=== PATIENT | female | born 1960 | race Caucasian/White ===

== ENCOUNTER → 2020-09-24 13:25 | Outpatient (BNVA) | payer MEDICARE, SELFPAY | PROVIDERS: PCP Family Medicine; Referring Provider Family Medicine; Visit Provider Nurse Practitioner Family | DX: Z01.818 Encounter for other preprocedural examination (principal); R19.7 Diarrhea, unspecified; K59.00 Constipation, unspecified; Z88.4 Allergy status to anesthetic agent; Z79.899 Other long term (current) drug therapy | CPT/HCPCS: 99202; Q3014 ==

== ENCOUNTER 2020-10-22 15:24 | Outpatient (REF) | payer MEDICARE, OTHER, SELFPAY ==
[2020-10-22 16:04] LABS: Hematocrit 41.6 % (37-47); Hemoglobin 13.4 g/dl (12.0-16.0); Mean Corpuscular HGB Conc 32.2 g/dl (31.0-35.0); Mean Corpuscular Hemoglobin 28.9 pg (27.0-33.0); Mean Corpuscular Volume 89.7 fL (80-98); Mean Platelet Volume 10.9 fL (9.4-12.3); Platelet Count 312 X10*3/uL (160-400); Red Blood Count 4.64 X10*6/uL (4.20-5.50); Red Cell Distribution Width 13.6 % (11.0-16.0); White Blood Count 7.7 X10*3/uL (4.8-10.8)
[2020-10-22 16:26] LABS: Alanine Aminotransferase 12 U/L (0-31); Alkaline Phosphatase 96 U/L (39-117); Anion Gap 11 (12-20); Aspartate Amino Transferase 21 U/L (5-31); Bilirubin Total 0.3 mg/dL (0.0-1.0); Blood Urea Nitrogen 6 mg/dL (9-16); Carbon Dioxide 30 mmol/L (22-29); Chloride 100 mmol/L (96-108); Estimated Glomerular Filt Rate > 60; Glucose Random 82 mg/dL (60-115); Potassium 4.2 mmol/l (3.3-5.1); Sodium 137 mmol/L (135-145); Total Protein 7.8 g/dL (6.5-8.0)
== END 2020-10-22 15:25 | disposition home or self-care (01) ==
LOC: HO.LAB 15:24
PROVIDERS: PCP Family Medicine; Visit Provider Nurse Practitioner Family
DX: Z12.11 Encounter for screening for malignant neoplasm of colon (principal); R19.7 Diarrhea, unspecified
CPT/HCPCS: 36415; 80053; 85027

== ENCOUNTER 2020-12-11 07:26 | Day surgery (SDC) | payer MEDICARE, SELFPAY ==
--- NOTE | 2020-12-10 08:26 | P.CONAN_ITS ---
Documented by User: Christine Wilson 12/10/20 08:29 HPI - Anesthesia Eval Consult details Narrative: 60yo F for Colonoscopy Chronic opioids. 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, right foot Peripheral neuropathy Family History Family History Father History of hemochromatosis Mother History of high blood pressure Surgical History Surgical History History of colonoscopy Social History Social History Alcohol intake: never Smoking Status: Current every day smoker Tobacco Type: Cigarette Cigarettes Per Day: 3 Second Hand Smoke Exposure: No Use of substances other than those prescribed or required for medical reasons: No Advance Directives: No Advance Directives Information Provided: No Advance Directives on File: No Meds Allergies Allergy/AdvReac Type Severity Reaction Status Date / Time lidocaine Allergy Intermediate facial Verified 12/05/20 12:52 swelling procaine Allergy Intermediate Facial Verified 12/05/20 12:52 Swelling Home Medications Medication Instructions Recorded Confirmed Type alprazolam 2 mg tablet 2 mg PO BID 09/24/20 12/05/20 History dextroamphetamine-amphetamine ER 30 mg PO DAILY 09/24/20 12/05/20 History 30 mg 24hr capsule,extend release gabapentin 400 mg capsule 800 mg PO TID cap 09/24/20 12/05/20 History morphine 30 mg immediate release 30 mg PO BID PRN 09/24/20 12/05/20 History tablet Exam Exam Date and Time: December 10, 2020 0826 Height,Weight and Vital Signs: Height 5 ft 2 in Assessment and Plan Assessment Anesthesia Assessment: Chart Reviewed Documented by User: Perez Travis 12/11/20 08:36 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, right foot Peripheral neuropathy Family History Family History Father History of hemochromatosis Mother History of high blood pressure Surgical History Surgical History History of colonoscopy Social History Social History Alcohol intake: never Smoking Status: Current every day smoker Tobacco Type: Cigarette Cigarettes Per Day: 3 Second Hand Smoke Exposure: No Use of substances other than those prescribed or required for medical reasons: No Advance Directives: No Advance Directives Information Provided: No Advance Directives on File: No Meds Allergies Allergy/AdvReac Type Severity Reaction Status Date / Time lidocaine Allergy Intermediate facial Verified 12/05/20 12:52 swelling procaine Allergy Intermediate Facial Verified 12/05/20 12:52 Swelling Home Medications Medication Instructions Recorded Confirmed Type alprazolam 2 mg tablet 2 mg PO BID 09/24/20 12/05/20 History dextroamphetamine-amphetamine ER 30 mg PO DAILY 09/24/20 12/05/20 History 30 mg 24hr capsule,extend release gabapentin 400 mg capsule 800 mg PO TID cap 09/24/20 12/05/20 History morphine 30 mg immediate release 30 mg PO BID PRN 09/24/20 12/05/20 History tablet Exam Airway Mallampati Class: II TM Dist: >3cm Neck ROM: Full Loose/Missing/Broken Teeth: No Heart: [id number] Lungs: cta b/l Assessment and Plan Assessment Anesthesia Assessment: Anesthesia Plan Discussed, PAT Visit and Chart Reviewed Final Anesthetic Review NPO: Yes ASA Class: II Final Preanesthetic Review: No Changes in Pt Med Stat, Meds/Allgs Chart Reviewed, Consent Obtained/Reviewed and Anes Risks/Benef Reviewed Patient Risk: Low Procedure Risk: Low Assessment/Block/Sedation in SS: Assess/Block/Sedation-SS Anesthetic Plan Anesthetic Plan: MAC: and Agree w/ Assess. and Plan Disposition: Standard PACU
[2020-12-11 07:59] VITALS: BMI 30.2
[2020-12-11 08:01] VITALS: BP 126/75; PULSE 76; RESP 16; TEMP 36; O2SAT 96
[2020-12-11] MEDS: Lactated Ringers 1,000 ML 100 ML IVCONT (08:10)
--- NOTE | 2020-12-11 08:13 | PC.NURSE ---
Chest clear, denies shortness of breath, SaO2 96% on room air
--- NOTE | 2020-12-11 08:42 | MHC.SHP ---
Pre-Procedural Eval Section B Chief Complaint: Screening Details of Present Illness: Colon cancer screening, hx of polyps Relevant Family History (Specify if Yes): No Relevant Social History: Tobacco Use Present Medications: see Short Stay Collaborative assessment Medical History: Significant History (IBS bowel movement pattern, Chronic right foot pain, ADHD) History of Previous Operations: Relevant previous surgery/procedure and date(s) (colon with polyps.) Allergies: Allergies Allergy/AdvReac Type Severity Reaction Status Date / Time lidocaine Allergy Intermediate facial Verified 12/05/20 12:52 swelling procaine Allergy Intermediate Facial Verified 12/05/20 12:52 Swelling Review of Systems Sugical H&P ROS: Negative: Cardiovascular, Respiratory and Gastrointestinal and Yes, Specify: Constitution (fatigue, nausea from prep) and Psychiatric (anxiety) Exam Surgical H&P Exam: Normal: HEENT, Normal: Heart, Normal: Lungs, Normal: Extremities and Normal: Abdomen Plan Diagnosis/Plan: Unchanged I have reviewed the history and physical and performed a pertinent physical examination on my patient. No changes have occurred unless specified.yes
[2020-12-11 09:51] VITALS: BP 120/71; PULSE 74; RESP 18; TEMP 36.1; O2SAT 97
--- NOTE | 2020-12-11 09:54 | PM.PROC ---
Brief Operative Note Date of procedure: 12/11/20 Pre-op diagnosis: COLON CANCER SCREENING-HX POLYPS Post-op diagnosis: other (ASCENDING COLON POLYP) Procedure: COLONOSCOPY WITH EXCISIONAL POLYPECTOMY (CBF)--EPI INJECTION-2CC, ENDO LARS-2CC Anesthesia: MAC (NALDO RAPP) Surgeon: Jeni Perdomo Estimated blood loss (mL): 5 Pathology: other (ASCENDING COLON POLYP ?SERRATED.) Condition: stable Disposition: PACU
[2020-12-11 10:10] VITALS: BP 129/72; PULSE 73; RESP 16; TEMP 36.2; O2SAT 96
--- NOTE | 2020-12-11 10:37 | HO.POSTANES ---
Post Anesthesia Evaluation Post Anesthesia Evaluation Vital Signs: Vital Signs Temp Pulse Resp BP Pulse Ox 12/11/20 10:10 97.2 F 73 16 129/72 96 12/11/20 09:51 96.9 F 74 18 120/71 97 12/11/20 08:01 96.8 F 76 16 126/75 96 Anesthesia: Monitored Mental Status: Awake Pain Control: Satisfactory Nausea/Vomiting: None Hydration: Adequate Anesthesia-Related Issues: No Anes. Related Issues
--- NOTE | 2020-12-11 13:14 | OP_ITS ---
SURGEON: Jeni Perdomo MD PREOPERATIVE DIAGNOSIS: Colon cancer screening. POSTOPERATIVE DIAGNOSIS: Colonic polyp. (Serrated on Pathology) PROCEDURE PERFORMED: Colonoscopy with complex polypectomy, excisional cold biopsy forceps after epinephrine injection 2 mL submucosally with good blanching and endo nely tattooing of the area of the polypectomy site. ESTIMATED BLOOD LOSS: Minimal blood loss. Less than 5 mL. COMPLICATIONS: No complications. ANESTHESIA: Monitored. ANESTHESIOLOGIST: Jerrica Bird CRNA. ASSISTANTS: No medical support assistant. SPECIMENS: Specimen removed, ascending colon polyp. The patient is seen for colon cancer screening. SOLAR RESOURCE ASSESSOR: Dr. Perdomo. FINDINGS: Digital rectal exam revealed no specific lesion. Video colonoscope was introduced without difficulty. It was navigated into rectosigmoid and sigmoid on up through descending, transverse, ascending colon into the cecum. Appendiceal orifice was seen. Ileocecal valve was seen. Prep was generally fair to poor, however, with flushing of at least 800 mL of sterile water, I ended up visualizing a superficial polyp in the ascending colon, which had some serrated qualities to it. The area of the polyp was blanched with epinephrine injection 2 mL. NBI imaging showed scalding to the edges of the polyp. Due to positioning, the decision was made to excisionally remove the tissue with cold biopsy forceps. The polyp itself was too superficial to remove with snare cautery. Endo marking was done both proximally and distally to the polypectomy site. CONDITION: Postprocedure, stable. PLAN AND CURRENT RECOMMENDATIONS: Repeat asymptomatic screening in this patient will be 3 years or sooner depending on histology on the polyp. GRAFT OR IMPLANTS: No grafts or implants. Jeni Perdomo MD MEN/MODL / [id number]
== END 2020-12-11 10:50 | disposition home or self-care (01) ==
PROVIDERS: PCP Family Medicine; Visit Provider Internal Medicine Gastroenterology
PROC: 0DJD8ZZ Inspection of Lower Intestinal Tract, Via Natural or Artificial Opening Endoscopic (ICD-10-PCS; CPT 45378; principal; 2020-12-11 08:30)
DX: Z12.11 Encounter for screening for malignant neoplasm of colon (principal); D12.2 Benign neoplasm of ascending colon; F11.20 Opioid dependence, uncomplicated; F90.9 Attention-deficit hyperactivity disorder, unspecified type; F41.9 Anxiety disorder, unspecified; K59.00 Constipation, unspecified; G62.9 Polyneuropathy, unspecified; M87.17 Osteonecrosis due to drugs, ankle, foot and toes; Z79.899 Other long term (current) drug therapy; Z88.8 Allergy status to other drugs, medicaments and biological substances
CPT/HCPCS: 45380; 45381; 88305; J0171; J1610

== ENCOUNTER → 2020-12-18 14:55 | Outpatient (BNVA) | payer MEDICARE, SELFPAY | PROVIDERS: PCP Family Medicine; Visit Provider Nurse Practitioner Family | DX: K59.00 Constipation, unspecified (principal); Z98.890 Other specified postprocedural states | CPT/HCPCS: 99212 ==

== ENCOUNTER → 2021-01-16 14:01 | Outpatient (BNVA) | payer MEDICARE, SELFPAY | PROVIDERS: PCP Family Medicine; Visit Provider Nurse Practitioner Family | DX: Z76.89 Persons encountering health services in other specified circumstances (principal) | CPT/HCPCS: Q3014 ==

== ENCOUNTER → 2021-02-18 14:00 | Outpatient (BNVA) | payer MEDICARE, SELFPAY | PROVIDERS: PCP Nurse Practitioner Family; Visit Provider Nurse Practitioner Family | DX: K59.04 Chronic idiopathic constipation (principal); R06.02 Shortness of breath; R79.81 Abnormal blood-gas level; R06.2 Wheezing | CPT/HCPCS: 99212 ==

== ENCOUNTER 2021-02-18 14:53 | Emergency (ER) | payer MEDICARE, SELFPAY ==
--- NOTE | ~2021-02-18 | XR_ITS ---
EXAMINATION: XR CHEST CLINICAL INFORMATION: SOB. ? Covid. COMPARISON: None TECHNIQUE: Frontal view of the chest was obtained. FINDINGS: The lungs are expanded with patchy ill-defined opacities scattered throughout both lungs suggestive of infiltrates/pneumonitis. Mild focal consolidation left lower lobe retrocardiac area is noted. The heart size and pulmonary vascularity is normal. No gross bony abnormality seen. XR/XR chest 1V IMPRESSION: Unremarkable chest diffuse bilateral ill-defined patchy opacities consistent with pneumonitis/infiltrate right
--- NOTE | ~2021-02-18 | CT_ITS ---
EXAMINATION: CT ANGIOGRAM OF THE CHEST WITH AND WITHOUT CONTRAST (CT PULMONARY ANGIOGRAM FOR PE) CLINICAL INFORMATION: Hypoxia, tachycardia and shortness of breath. Abnormal chest x-ray. COMPARISON: Chest x-ray earlier today. TECHNIQUE: Prior to contrast administration, noncontrast localization images were obtained. Subsequently, multidetector volumetric imaging was performed from the thoracic inlet to below the diaphragms following the administration of 60 mL Omnipaque 350 intravenous contrast. No contrast reaction reported Sagittal, coronal, and MIP oblique sagittal reformatted images were obtained on the CT workstation, uploaded to PACS, and reviewed. This CT examination was performed using dose optimization techniques as appropriate, variously including the following: *Automated exposure control *Adjustment of mA and/or kV according to patient size (this includes techniques or standardized protocols for targeted exams where dose is matched to indication/reason for exam; i.e. extremities or head) *Use of iterative reconstruction technique Total exam dose-length product 257 mGy-cm FINDINGS: The heart is at the upper limits of normal in size. There is no pericardial effusion. No pulmonary arterial filling defect to suggest pulmonary embolus. Nonaneurysmal thoracic aorta. A few scattered mediastinal and hilar lymph nodes are prominent but nonpathologically enlarged. No enlarged axillary lymph nodes. Central airways are patent. Lungs are adequately aerated. Extensive bilateral predominantly groundglass patchy opacities are present. No gross lobar consolidation identified. Right apical scarring is not excluded. No pleural effusion or pneumothorax. Visualized portion of the upper abdomen are grossly unremarkable. Mild degenerative changes of the spine. CT/CT angio chest PE protocol IMPRESSION: 1. No pulmonary arterial filling defect to suggest pulmonary embolus. 2. Extensive patchy predominantly groundglass airspace disease is most consistent with Covid pneumonia. 3. Prominent mediastinal and hilar lymph nodes are nonspecific but likely reactive in nature. VTE: negative
[2021-02-18 15:27] VITALS: BP 125/87; PULSE 103; RESP 22; TEMP 37.4; O2SAT 92; BMI 31.7
--- NOTE | 2021-02-18 15:38 | ED.SOB ---
HPI - SOB/Dyspnea General Chief Complaint: Dyspnea <ALEXI Del Cid - Last Filed: 02/18/21 16:50> Stated Complaint: oxygen level low <ALEXI Del Cid - Last Filed: 02/18/21 16:50> Time Seen by Provider: 02/18/21 15:32 <ALEXI Del Cid - Last Filed: 02/18/21 16:50> Source: patient <ALEXI Del Cid - Last Filed: 02/18/21 16:50> Mode of arrival: wheelchair <ALEXI Del Cid - Last Filed: 02/18/21 16:50> Limitations: no limitations <ALEXI Del Cid Last Filed: 02/18/21 16:50> History of Present Illness HPI Narrative: 60 y/o female with history of asthma, active smoker with 20 pack year history, IBS with chronic constipation, chronic foot pain on chronic opiates, anxiety, depression who presents to the ED from GI office upstairs with SOB and wheezing. She was found to have SpO2 88% in the GI office so she was sent down to the ER for further evaluation. She reports SOB ongoing for the last 1 year, worsening over the last 3 months. She states she has SAVAGE and wheezing daily. She has a new cat in her home from her son and thinks she may be allergic. She denies coughing but she has difficulty taking a deep breath, as it makes her cough and gives her pain. She was previously prescribed an inhaled steroid but is having difficulty hearing back from her doctors regarding her SOB complaints. She denies fever, chills, myalgias, N/V/D. She has received 1 of her COVID vaccinations. <ALEXI Del Cid - Last Filed: 02/18/21 16:50> MD elicited complaint: shortness of breath <ALEXI Del Cid - Last Filed: 02/18/21 16:50> Pertinent past history: asthma <ALEXI Del Cid - Last Filed: 02/18/21 16:50> Onset (ago): month(s) <ALEXI Del Cid - Last Filed: 02/18/21 16:50> Context: occurred during exertion and anxiety <ALEXI Del Cid - Last Filed: 02/18/21 16:50> Timing: intermittent <ALEXI Del Cid - Last Filed: 02/18/21 16:50> Severity: moderate <ALEXI Del Cid - Last Filed: 02/18/21 16:50> Exacerbating factors: exertion, inspiration and deep breaths <ALEXI Del Cid - Last Filed: 02/18/21 16:50> Relieving factors: rest <ALEXI Del Cid - Last Filed: 02/18/21 16:50> Known history of: asthma <ALEXI Del Cid - Last Filed: 02/18/21 16:50> Associated symptoms: pain with inspiration and wheezing <ALEXI Del Cid - Last Filed: 02/18/21 16:50> Treatment prior to arrival: none <ALEXI Del Cid - Last Filed: 02/18/21 16:50> Related Data Home Medications: Home Medications Medication Instructions Recorded Confirmed alprazolam 2 mg tablet 2 mg PO BID 09/24/20 02/26/21 dextroamphetamine-amphetamine ER 30 mg PO DAILY 09/24/20 02/26/21 30 mg 24hr capsule,extend release gabapentin 400 mg capsule 800 mg PO TID cap 09/24/20 02/26/21 dextroamphetamine-amphetamine 30 1 tab PO TID 02/18/21 02/26/21 mg tablet fluticasone 100 mcg-salmeterol 50 1 inh INHALATION BID 02/18/21 02/26/21 mcg/dose blistr powdr for inhalation morphine 30 mg PO BID PRN 02/18/21 02/26/21 morphine 30 mg PO Q12H 02/18/21 02/26/21 ondansetron 4 mg disintegrating 4 mg PO Q8H PRN 02/18/21 02/26/21 tablet Previous Rx's Medication Instructions Recorded docusate sodium 100 mg capsule 100 mg PO DAILY #30 cap 12/18/20 methylcellulose (laxative) 500 mg 500 mg PO DAILY #30 tab 12/18/20 tablet dicyclomine 10 mg capsule 10 mg PO TID #90 cap 01/16/21 acetaminophen [Tylenol Extra 1,000 mg PO QID PRN #14 tab 02/18/21 Strength] albuterol sulfate 0.63 mg INHALATION QID PRN #75 ml 02/18/21 albuterol sulfate 1 inh INHALATION QID PRN #8.5 g 02/18/21 azithromycin 250 mg PO DAILY #6 tab 02/18/21 dexamethasone [Decadron] 6 mg PO DAILY 5 Days #5 tab 02/18/21 doxycycline monohydrate 100 mg PO BID 10 Days #20 cap 02/18/21 ibuprofen 800 mg PO Q8H PRN #14 tab 02/18/21 linaclotide 72 mcg capsule 72 mcg PO QAM #30 cap 02/18/21 nicotine 21 mg/24 hr daily 1 patch TRANSDERMAL Q24H 28 Days 02/26/21 transdermal patch #28 ea nebulizer and compressor #1 ea 02/27/21 <ALEXI Del Cid - Last Filed: 02/18/21 16:50> Allergies/Adverse Reactions: Allergies Allergy/AdvReac Type Severity Reaction Status Date / Time No Known Allergies Allergy Verified 02/26/21 15:59 <ALEXI Del Cid - Last Filed: 02/18/21 16:50> Review of Systems Review of Systems: Constitutional: No Fever, No Chills ENT/Mouth: No sore throat, + Rhinorrhea, No Swallowing Difficulty Eyes: No Eye Pain, No Swelling, No Redness Cardiovascular: No Chest Pain, + SOB, No Orthopnea, No Edema Respiratory: No Cough, No Sputum, + Wheezing, + dyspnea Gastrointestinal: No Nausea, No Vomiting, No Diarrhea, No abdominal Pain, No Hematochezia, No Melena Genitourinary: No Dysuria, No Urinary Frequency, No Hematuria Musculoskeletal: + joint pain, No Myalgias Skin: No Skin Lesions, No rash Neuro: No Weakness, No Numbness, No Dizziness, + Headache Psych: + Anxiety/Panic, + Depression Heme/Lymph: No Bruising, No Lymphadenopathy Endocrine: No Polyuria, No Polydipsia <ALEXI Del Cid - Last Filed: 02/18/21 16:50> [facility] Past Medical History Attestation statement: The following information was validated with the patient. 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, right foot Peripheral neuropathy Scoliosis <ALEXI Del Cid - Last Filed: 02/18/21 16:50> Surgical History: Surgical History History of colonoscopy <ALEXI Del Cid - Last Filed: 02/18/21 16:50> Family History Family History: Family History Father History of hemochromatosis Mother History of high blood pressure <ALEXI Del Cid - Last Filed: 02/18/21 16:50> Social History Social History: Social History Household Members: None Alcohol intake: never Smoking Status: Current every day smoker Tobacco Type: Cigarette Cigarettes Per Day: 3 Second Hand Smoke Exposure: No Current occupational status: disabled <ALEXI Del Cid - Last Filed: 02/18/21 16:50> Physical Exam Vital Signs: Vital Signs: Last Vital Signs Temp 98.0 F 02/18/21 18:54 Pulse 95 02/18/21 18:54 Resp 18 02/18/21 18:54 BP 122/76 02/18/21 18:54 Pulse Ox 96 02/18/21 18:54 Body Mass Index 31.7 Appearance: Alert. Oriented X3. No acute distress. Eyes: Pupils equal, round and reactive to light. ENT: Pharynx normal. Neck: Normal inspection. Neck supple. CVS: Normal heart rate and rhythm. Pulses normal. Respiratory: No respiratory distress. Speaks in full sentences, inspiratory wheezes in middle & lower lung gimenez with harsh crackles to middle lungs bilaterally. Abdomen: Soft and nontender. +BS x4 Skin: Skin warm and dry. Normal skin color. Normal skin turgor. No rashes. Extremities: No lower extremity edema. Negative Lang's sign Neuro: Oriented X 3. No motor deficit. No sensory deficit. <ALEXI Del Cid - Last Filed: 02/18/21 16:50> Vital Signs: Last Vital Signs Temp 98.0 F 02/18/21 18:54 Pulse 95 02/18/21 18:54 Resp 18 02/18/21 18:54 BP 122/76 02/18/21 18:54 Pulse Ox 96 02/18/21 18:54 Body Mass Index 31.7 <ALEXI Martin - Last Filed: 02/18/21 20:01> Vital Signs: Last Vital Signs Temp 98.0 F 02/18/21 18:54 Pulse 95 02/18/21 18:54 Resp 18 02/18/21 18:54 BP 122/76 02/18/21 18:54 Pulse Ox 96 02/18/21 18:54 Body Mass Index 31.7 <Wisam Sepulveda MD - Last Filed: 03/05/21 14:57> Course Course Course Narrative: 60 y/o female presenting from GI office with SOB and hypoxia. She reports 3 months of worsening SOB and wheezing. She likely has underlying, untreated COPD given her extensive smoking history. She is wheezey w/ some harsh crackles bilaterally. Will give dose of prednisone and an hour long nebulizer treatment, check CXR, lab workup and COVID swab. SpO2 90-95% on room air on arrival to the ED in no distress. Dispo pending results and improvement. <ALEXI Del Cid - Last Filed: 02/18/21 16:50> I have reviewed the chart <Wisam Sepulveda MD - Last Filed: 03/05/21 14:57> Reevaluation(s) Reevaluation #1: Lab workup shows BNP 199, denies history of heart failure. No evidence of peripheral edema. DDIMER elevated 350. CXR with findings consistent with infiltrates vs pneumonitis. No leukocytosis or fevers. Procalcitonin pending. Will give dose of Azithromycin and Rocephin for coverage. Given her exam, CXR findings and ongoing symptoms concern is for possible interstitial lung disease. Will get CTA to r/o PE and better assess lung parenchyma. <ALEXI Del Cid - Last Filed: 02/18/21 16:50> Reevaluation #2: SpO2 95% while getting nebulizer treatment. She is already feeling better. Her lung examination is unchanged. CTA pending. Will sign out to PM provider who will assume care. <ALEXI Del Cid - Last Filed: 02/18/21 16:50> MDM - SOB/Dyspnea Lab Data Result diagrams: : 02/18/21 16:02 02/18/21 16:02 <ALEXI Del Cid - Last Filed: 02/18/21 16:50> Labs: Lab Results 02/18/21 02/18/21 02/18/21 Range/Units 16:02 16:02 16:02 WBC 8.8 (4.8-10.8) X10*3/uL RBC 4.04 L (4.20-5.50) X10*6/uL Hgb 12.0 (12.0-16.0) g/dl Hct 36.7 L (37-47) % MCV 90.8 (80-98) fL MCH 29.7 (27.0-33.0) pg MCHC 32.7 (31.0-35.0) g/dl RDW 13.7 (11.0-16.0) % Plt Count 257 (160-400) X10*3/uL MPV 10.5 (9.4-12.3) fL Immature Gran % (Auto) 0.2 (0.0-0.4) % Neut % (Auto) 66.4 (45-73) % Lymph % (Auto) 24.8 (20-40) % [place] % (Auto) 6.9 (2-11) % Eos % (Auto) 1.4 (0-4) % Baso % (Auto) 0.3 (0-2) % Lymph # (Auto) 2.2 (1.2-4.9) X10*3/uL [place] # (Auto) 0.6 (0.1-1.2) X10*3/uL Eos # (Auto) 0.1 (0.0-0.4) X10*3/uL Baso # (Auto) 0.0 (0.0-0.2) X10*3/uL Abs Immat Gran (auto) 0.02 (0.00-0.03) X10*3/uL Absolute Neuts (auto) 5.8 (2.0-8.3) X10*3/uL Absolute Nucleated RBC 0.000 (0.0-0.012) X10*3/uL Nucleated RBC % (auto) 0.0 (0.0-0.2) /100WBC D-Dimer 349 NG/ML Hold Blue Top SEE NOTE Sodium (135-145) mmol/L Potassium (3.3-5.1) mmol/L Chloride (96-108) mmol/L Carbon Dioxide (22-29) mmol/L Anion Gap (12-20) BUN (9-16) mg/dL Creatinine (0.5-1.4) mg/dL Estim Creat Clear Calc Estimated GFR Random Glucose (60-115) mg/dL Lactic Acid (0.5-2.0) mmol/L Calcium (8.4-10.2) mg/dL Magnesium (1.6-2.6) mg/dL B-Natriuretic Peptide (<100) pg/mL Procalcitonin ng/mL Urine Color Urine Appearance Urine pH (5.0-8.0) Ur Specific [place] (1.005-1.025) Urine Protein (NEG-TRACE) MG/DL Urine Glucose (UA) (NEG) MG/DL Urine Ketones (NEG) MG/DL Urine Blood (NEG) Urine Nitrite (NEG) Ur Leukocyte Esterase (NEG) Urine Opiates Screen (Not Detect) Ur Barbiturates Screen (Not Detect) Ur Phencyclidine Scrn (Not Detect) Ur Amphetamines Screen (Not Detect) U Benzodiazepines Scrn (Not Detect) Urine Cocaine Screen (Not Detect) U Marijuana (THC) Screen (Not Detect) Coronavirus (PCR) (Negative) COVID-19 (NAYA) Negative (Negative) COVID-19 Clin Com See Note Influenza Type A (PCR) (Negative) Influenza Type B (PCR) (Negative) RSV RNA Qual (PCR) (Negative) 02/18/21 02/18/21 02/18/21 Range/Units 16:02 16:02 16:02 WBC (4.8-10.8) X10*3/uL RBC (4.20-5.50) X10*6/uL Hgb (12.0-16.0) g/dl Hct (37-47) % MCV (80-98) fL MCH (27.0-33.0) pg MCHC (31.0-35.0) g/dl RDW (11.0-16.0) % Plt Count (160-400) X10*3/uL MPV (9.4-12.3) fL Immature Gran % (Auto) (0.0-0.4) % Neut % (Auto) (45-73) % Lymph % (Auto) (20-40) % [place] % (Auto) (2-11) % Eos % (Auto) (0-4) % Baso % (Auto) (0-2) % Lymph # (Auto) (1.2-4.9) X10*3/uL [place] # (Auto) (0.1-1.2) X10*3/uL Eos # (Auto) (0.0-0.4) X10*3/uL Baso # (Auto) (0.0-0.2) X10*3/uL Abs Immat Gran (auto) (0.00-0.03) X10*3/uL Absolute Neuts (auto) (2.0-8.3) X10*3/uL Absolute Nucleated RBC (0.0-0.012) X10*3/uL Nucleated RBC % (auto) (0.0-0.2) /100WBC D-Dimer NG/ML Hold Blue Top Sodium 134 L (135-145) mmol/L Potassium 4.1 (3.3-5.1) mmol/L Chloride 97 (96-108) mmol/L Carbon Dioxide 29 (22-29) mmol/L Anion Gap 12 (12-20) BUN 7 L (9-16) mg/dL Creatinine 0.72 (0.5-1.4) mg/dL Estim Creat Clear Calc 73.1 Estimated GFR > 60 Random Glucose 95 (60-115) mg/dL Lactic Acid (0.5-2.0) mmol/L Calcium 8.7 (8.4-10.2) mg/dL Magnesium 2.1 (1.6-2.6) mg/dL B-Natriuretic Peptide 199 H (<100) pg/mL Procalcitonin 0.04 ng/mL Urine Color Urine Appearance Urine pH (5.0-8.0) Ur Specific [place] (1.005-1.025) Urine Protein (NEG-TRACE) MG/DL Urine Glucose (UA) (NEG) MG/DL Urine Ketones (NEG) MG/DL Urine Blood (NEG) Urine Nitrite (NEG) Ur Leukocyte Esterase (NEG) Urine Opiates Screen (Not Detect) Ur Barbiturates Screen (Not Detect) Ur Phencyclidine Scrn (Not Detect) Ur Amphetamines Screen (Not Detect) U Benzodiazepines Scrn (Not Detect) Urine Cocaine Screen (Not Detect) U Marijuana (THC) Screen (Not Detect) Coronavirus (PCR) (Negative) COVID-19 (NAYA) (Negative) COVID-19 Clin Com Influenza Type A (PCR) (Negative) Influenza Type B (PCR) (Negative) RSV RNA Qual (PCR) (Negative) 02/18/21 02/18/21 02/18/21 Range/Units 18:34 18:34 18:35 WBC (4.8-10.8) X10*3/uL RBC (4.20-5.50) X10*6/uL Hgb (12.0-16.0) g/dl Hct (37-47) % MCV (80-98) fL MCH (27.0-33.0) pg MCHC (31.0-35.0) g/dl RDW (11.0-16.0) % Plt Count (160-400) X10*3/uL MPV (9.4-12.3) fL Immature Gran % (Auto) (0.0-0.4) % Neut % (Auto) (45-73) % Lymph % (Auto) (20-40) % [place] % (Auto) (2-11) % Eos % (Auto) (0-4) % Baso % (Auto) (0-2) % Lymph # (Auto) (1.2-4.9) X10*3/uL [place] # (Auto) (0.1-1.2) X10*3/uL Eos # (Auto) (0.0-0.4) X10*3/uL Baso # (Auto) (0.0-0.2) X10*3/uL Abs Immat Gran (auto) (0.00-0.03) X10*3/uL Absolute Neuts (auto) (2.0-8.3) X10*3/uL Absolute Nucleated RBC (0.0-0.012) X10*3/uL Nucleated RBC % (auto) (0.0-0.2) /100WBC D-Dimer NG/ML Hold Blue Top Sodium (135-145) mmol/L Potassium (3.3-5.1) mmol/L Chloride (96-108) mmol/L Carbon Dioxide (22-29) mmol/L Anion Gap (12-20) BUN (9-16) mg/dL Creatinine (0.5-1.4) mg/dL Estim Creat Clear Calc Estimated GFR Random Glucose (60-115) mg/dL Lactic Acid 1.2 (0.5-2.0) mmol/L Calcium (8.4-10.2) mg/dL Magnesium (1.6-2.6) mg/dL B-Natriuretic Peptide (<100) pg/mL Procalcitonin ng/mL Urine Color YELLOW Urine Appearance CLEAR Urine pH 7.0 (5.0-8.0) Ur Specific [place] 1.010 (1.005-1.025) Urine Protein NEG (NEG-TRACE) MG/DL Urine Glucose (UA) NEG (NEG) MG/DL Urine Ketones NEG (NEG) MG/DL Urine Blood NEG (NEG) Urine Nitrite NEG (NEG) Ur Leukocyte Esterase NEG (NEG) Urine Opiates Screen POSITIVE H (Not Detect) Ur Barbiturates Screen Not Detected (Not Detect) Ur Phencyclidine Scrn Not Detected (Not Detect) Ur Amphetamines Screen POSITIVE H (Not Detect) U Benzodiazepines Scrn POSITIVE H (Not Detect) Urine Cocaine Screen Not Detected (Not Detect) U Marijuana (THC) Screen Not Detected (Not Detect) Coronavirus (PCR) (Negative) COVID-19 (NAYA) (Negative) COVID-19 Clin Com Influenza Type A (PCR) (Negative) Influenza Type B (PCR) (Negative) RSV RNA Qual (PCR) (Negative) 02/18/21 Range/Units 20:20 WBC (4.8-10.8) X10*3/uL RBC (4.20-5.50) X10*6/uL Hgb (12.0-16.0) g/dl Hct (37-47) % MCV (80-98) fL MCH (27.0-33.0) pg MCHC (31.0-35.0) g/dl RDW (11.0-16.0) % Plt Count (160-400) X10*3/uL MPV (9.4-12.3) fL Immature Gran % (Auto) (0.0-0.4) % Neut % (Auto) (45-73) % Lymph % (Auto) (20-40) % [place] % (Auto) (2-11) % Eos % (Auto) (0-4) % Baso % (Auto) (0-2) % Lymph # (Auto) (1.2-4.9) X10*3/uL [place] # (Auto) (0.1-1.2) X10*3/uL Eos # (Auto) (0.0-0.4) X10*3/uL Baso # (Auto) (0.0-0.2) X10*3/uL Abs Immat Gran (auto) (0.00-0.03) X10*3/uL Absolute Neuts (auto) (2.0-8.3) X10*3/uL Absolute Nucleated RBC (0.0-0.012) X10*3/uL Nucleated RBC % (auto) (0.0-0.2) /100WBC D-Dimer NG/ML Hold Blue Top Sodium (135-145) mmol/L Potassium (3.3-5.1) mmol/L Chloride (96-108) mmol/L Carbon Dioxide (22-29) mmol/L Anion Gap (12-20) BUN (9-16) mg/dL Creatinine (0.5-1.4) mg/dL Estim Creat Clear Calc Estimated GFR Random Glucose (60-115) mg/dL Lactic Acid (0.5-2.0) mmol/L Calcium (8.4-10.2) mg/dL Magnesium (1.6-2.6) mg/dL B-Natriuretic Peptide (<100) pg/mL Procalcitonin ng/mL Urine Color Urine Appearance Urine pH (5.0-8.0) Ur Specific [place] (1.005-1.025) Urine Protein (NEG-TRACE) MG/DL Urine Glucose (UA) (NEG) MG/DL Urine Ketones (NEG) MG/DL Urine Blood (NEG) Urine Nitrite (NEG) Ur Leukocyte Esterase (NEG) Urine Opiates Screen (Not Detect) Ur Barbiturates Screen (Not Detect) Ur Phencyclidine Scrn (Not Detect) Ur Amphetamines Screen (Not Detect) U Benzodiazepines Scrn (Not Detect) Urine Cocaine Screen (Not Detect) U Marijuana (THC) Screen (Not Detect) Coronavirus (PCR) NEGATIVE (Negative) COVID-19 (NAYA) (Negative) COVID-19 Clin Com Influenza Type A (PCR) NEGATIVE (Negative) Influenza Type B (PCR) NEGATIVE (Negative) RSV RNA Qual (PCR) NEGATIVE (Negative) <ALEXI Del Cid - Last Filed: 02/18/21 16:50> Lab Results 02/18/21 02/18/21 02/18/21 Range/Units 16:02 16:02 16:02 WBC 8.8 (4.8-10.8) X10*3/uL RBC 4.04 L (4.20-5.50) X10*6/uL Hgb 12.0 (12.0-16.0) g/dl Hct 36.7 L (37-47) % MCV 90.8 (80-98) fL MCH 29.7 (27.0-33.0) pg MCHC 32.7 (31.0-35.0) g/dl RDW 13.7 (11.0-16.0) % Plt Count 257 (160-400) X10*3/uL MPV 10.5 (9.4-12.3) fL Immature Gran % (Auto) 0.2 (0.0-0.4) % Neut % (Auto) 66.4 (45-73) % Lymph % (Auto) 24.8 (20-40) % [place] % (Auto) 6.9 (2-11) % Eos % (Auto) 1.4 (0-4) % Baso % (Auto) 0.3 (0-2) % Lymph # (Auto) 2.2 (1.2-4.9) X10*3/uL [place] # (Auto) 0.6 (0.1-1.2) X10*3/uL Eos # (Auto) 0.1 (0.0-0.4) X10*3/uL Baso # (Auto) 0.0 (0.0-0.2) X10*3/uL Abs Immat Gran (auto) 0.02 (0.00-0.03) X10*3/uL Absolute Neuts (auto) 5.8 (2.0-8.3) X10*3/uL Absolute Nucleated RBC 0.000 (0.0-0.012) X10*3/uL Nucleated RBC % (auto) 0.0 (0.0-0.2) /100WBC D-Dimer 349 NG/ML Hold Blue Top SEE NOTE Sodium (135-145) mmol/L Potassium (3.3-5.1) mmol/L Chloride (96-108) mmol/L Carbon Dioxide (22-29) mmol/L Anion Gap (12-20) BUN (9-16) mg/dL Creatinine (0.5-1.4) mg/dL Estim Creat Clear Calc Estimated GFR Random Glucose (60-115) mg/dL Lactic Acid (0.5-2.0) mmol/L Calcium (8.4-10.2) mg/dL Magnesium (1.6-2.6) mg/dL B-Natriuretic Peptide (<100) pg/mL Procalcitonin ng/mL Urine Color Urine Appearance Urine pH (5.0-8.0) Ur Specific [place] (1.005-1.025) Urine Protein (NEG-TRACE) MG/DL Urine Glucose (UA) (NEG) MG/DL Urine Ketones (NEG) MG/DL Urine Blood (NEG) Urine Nitrite (NEG) Ur Leukocyte Esterase (NEG) Urine Opiates Screen (Not Detect) Ur Barbiturates Screen (Not Detect) Ur Phencyclidine Scrn (Not Detect) Ur Amphetamines Screen (Not Detect) U Benzodiazepines Scrn (Not Detect) Urine Cocaine Screen (Not Detect) U Marijuana (THC) Screen (Not Detect) Coronavirus (PCR) (Negative) COVID-19 (NAYA) Negative (Negative) COVID-19 Clin Com See Note Influenza Type A (PCR) (Negative) Influenza Type B (PCR) (Negative) RSV RNA Qual (PCR) (Negative) 02/18/21 02/18/21 02/18/21 Range/Units 16:02 16:02 16:02 WBC (4.8-10.8) X10*3/uL RBC (4.20-5.50) X10*6/uL Hgb (12.0-16.0) g/dl Hct (37-47) % MCV (80-98) fL MCH (27.0-33.0) pg MCHC (31.0-35.0) g/dl RDW (11.0-16.0) % Plt Count (160-400) X10*3/uL MPV (9.4-12.3) fL Immature Gran % (Auto) (0.0-0.4) % Neut % (Auto) (45-73) % Lymph % (Auto) (20-40) % [place] % (Auto) (2-11) % Eos % (Auto) (0-4) % Baso % (Auto) (0-2) % Lymph # (Auto) (1.2-4.9) X10*3/uL [place] # (Auto) (0.1-1.2) X10*3/uL Eos # (Auto) (0.0-0.4) X10*3/uL Baso # (Auto) (0.0-0.2) X10*3/uL Abs Immat Gran (auto) (0.00-0.03) X10*3/uL Absolute Neuts (auto) (2.0-8.3) X10*3/uL Absolute Nucleated RBC (0.0-0.012) X10*3/uL Nucleated RBC % (auto) (0.0-0.2) /100WBC D-Dimer NG/ML Hold Blue Top Sodium 134 L (135-145) mmol/L Potassium 4.1 (3.3-5.1) mmol/L Chloride 97 (96-108) mmol/L Carbon Dioxide 29 (22-29) mmol/L Anion Gap 12 (12-20) BUN 7 L (9-16) mg/dL Creatinine 0.72 (0.5-1.4) mg/dL Estim Creat Clear Calc 73.1 Estimated GFR > 60 Random Glucose 95 (60-115) mg/dL Lactic Acid (0.5-2.0) mmol/L Calcium 8.7 (8.4-10.2) mg/dL Magnesium 2.1 (1.6-2.6) mg/dL B-Natriuretic Peptide 199 H (<100) pg/mL Procalcitonin 0.04 ng/mL Urine Color Urine Appearance Urine pH (5.0-8.0) Ur Specific [place] (1.005-1.025) Urine Protein (NEG-TRACE) MG/DL Urine Glucose (UA) (NEG) MG/DL Urine Ketones (NEG) MG/DL Urine Blood (NEG) Urine Nitrite (NEG) Ur Leukocyte Esterase (NEG) Urine Opiates Screen (Not Detect) Ur Barbiturates Screen (Not Detect) Ur Phencyclidine Scrn (Not Detect) Ur Amphetamines Screen (Not Detect) U Benzodiazepines Scrn (Not Detect) Urine Cocaine Screen (Not Detect) U Marijuana (THC) Screen (Not Detect) Coronavirus (PCR) (Negative) COVID-19 (NAYA) (Negative) COVID-19 Clin Com Influenza Type A (PCR) (Negative) Influenza Type B (PCR) (Negative) RSV RNA Qual (PCR) (Negative) 02/18/21 02/18/21 02/18/21 Range/Units 18:34 18:34 18:35 WBC (4.8-10.8) X10*3/uL RBC (4.20-5.50) X10*6/uL Hgb (12.0-16.0) g/dl Hct (37-47) % MCV (80-98) fL MCH (27.0-33.0) pg MCHC (31.0-35.0) g/dl RDW (11.0-16.0) % Plt Count (160-400) X10*3/uL MPV (9.4-12.3) fL Immature Gran % (Auto) (0.0-0.4) % Neut % (Auto) (45-73) % Lymph % (Auto) (20-40) % [place] % (Auto) (2-11) % Eos % (Auto) (0-4) % Baso % (Auto) (0-2) % Lymph # (Auto) (1.2-4.9) X10*3/uL [place] # (Auto) (0.1-1.2) X10*3/uL Eos # (Auto) (0.0-0.4) X10*3/uL Baso # (Auto) (0.0-0.2) X10*3/uL Abs Immat Gran (auto) (0.00-0.03) X10*3/uL Absolute Neuts (auto) (2.0-8.3) X10*3/uL Absolute Nucleated RBC (0.0-0.012) X10*3/uL Nucleated RBC % (auto) (0.0-0.2) /100WBC D-Dimer NG/ML Hold Blue Top Sodium (135-145) mmol/L Potassium (3.3-5.1) mmol/L Chloride (96-108) mmol/L Carbon Dioxide (22-29) mmol/L Anion Gap (12-20) BUN (9-16) mg/dL Creatinine (0.5-1.4) mg/dL Estim Creat Clear Calc Estimated GFR Random Glucose (60-115) mg/dL Lactic Acid 1.2 (0.5-2.0) mmol/L Calcium (8.4-10.2) mg/dL Magnesium (1.6-2.6) mg/dL B-Natriuretic Peptide (<100) pg/mL Procalcitonin ng/mL Urine Color YELLOW Urine Appearance CLEAR Urine pH 7.0 (5.0-8.0) Ur Specific [place] 1.010 (1.005-1.025) Urine Protein NEG (NEG-TRACE) MG/DL Urine Glucose (UA) NEG (NEG) MG/DL Urine Ketones NEG (NEG) MG/DL Urine Blood NEG (NEG) Urine Nitrite NEG (NEG) Ur Leukocyte Esterase NEG (NEG) Urine Opiates Screen POSITIVE H (Not Detect) Ur Barbiturates Screen Not Detected (Not Detect) Ur Phencyclidine Scrn Not Detected (Not Detect) Ur Amphetamines Screen POSITIVE H (Not Detect) U Benzodiazepines Scrn POSITIVE H (Not Detect) Urine Cocaine Screen Not Detected (Not Detect) U Marijuana (THC) Screen Not Detected (Not Detect) Coronavirus (PCR) (Negative) COVID-19 (NAYA) (Negative) COVID-19 Clin Com Influenza Type A (PCR) (Negative) Influenza Type B (PCR) (Negative) RSV RNA Qual (PCR) (Negative) 02/18/21 Range/Units 20:20 WBC (4.8-10.8) X10*3/uL RBC (4.20-5.50) X10*6/uL Hgb (12.0-16.0) g/dl Hct (37-47) % MCV (80-98) fL MCH (27.0-33.0) pg MCHC (31.0-35.0) g/dl RDW (11.0-16.0) % Plt Count (160-400) X10*3/uL MPV (9.4-12.3) fL Immature Gran % (Auto) (0.0-0.4) % Neut % (Auto) (45-73) % Lymph % (Auto) (20-40) % [place] % (Auto) (2-11) % Eos % (Auto) (0-4) % Baso % (Auto) (0-2) % Lymph # (Auto) (1.2-4.9) X10*3/uL [place] # (Auto) (0.1-1.2) X10*3/uL Eos # (Auto) (0.0-0.4) X10*3/uL Baso # (Auto) (0.0-0.2) X10*3/uL Abs Immat Gran (auto) (0.00-0.03) X10*3/uL Absolute Neuts (auto) (2.0-8.3) X10*3/uL Absolute Nucleated RBC (0.0-0.012) X10*3/uL Nucleated RBC % (auto) (0.0-0.2) /100WBC D-Dimer NG/ML Hold Blue Top Sodium (135-145) mmol/L Potassium (3.3-5.1) mmol/L Chloride (96-108) mmol/L Carbon Dioxide (22-29) mmol/L Anion Gap (12-20) BUN (9-16) mg/dL Creatinine (0.5-1.4) mg/dL Estim Creat Clear Calc Estimated GFR Random Glucose (60-115) mg/dL Lactic Acid (0.5-2.0) mmol/L Calcium (8.4-10.2) mg/dL Magnesium (1.6-2.6) mg/dL B-Natriuretic Peptide (<100) pg/mL Procalcitonin ng/mL Urine Color Urine Appearance Urine pH (5.0-8.0) Ur Specific [place] (1.005-1.025) Urine Protein (NEG-TRACE) MG/DL Urine Glucose (UA) (NEG) MG/DL Urine Ketones (NEG) MG/DL Urine Blood (NEG) Urine Nitrite (NEG) Ur Leukocyte Esterase (NEG) Urine Opiates Screen (Not Detect) Ur Barbiturates Screen (Not Detect) Ur Phencyclidine Scrn (Not Detect) Ur Amphetamines Screen (Not Detect) U Benzodiazepines Scrn (Not Detect) Urine Cocaine Screen (Not Detect) U Marijuana (THC) Screen (Not Detect) Coronavirus (PCR) NEGATIVE (Negative) COVID-19 (NAYA) (Negative) COVID-19 Clin Com Influenza Type A (PCR) NEGATIVE (Negative) Influenza Type B (PCR) NEGATIVE (Negative) RSV RNA Qual (PCR) NEGATIVE (Negative) <ALEXI Martin - Last Filed: 02/18/21 20:01> Lab Results 02/18/21 02/18/21 02/18/21 Range/Units 16:02 16:02 16:02 WBC 8.8 (4.8-10.8) X10*3/uL RBC 4.04 L (4.20-5.50) X10*6/uL Hgb 12.0 (12.0-16.0) g/dl Hct 36.7 L (37-47) % MCV 90.8 (80-98) fL MCH 29.7 (27.0-33.0) pg MCHC 32.7 (31.0-35.0) g/dl RDW 13.7 (11.0-16.0) % Plt Count 257 (160-400) X10*3/uL MPV 10.5 (9.4-12.3) fL Immature Gran % (Auto) 0.2 (0.0-0.4) % Neut % (Auto) 66.4 (45-73) % Lymph % (Auto) 24.8 (20-40) % [place] % (Auto) 6.9 (2-11) % Eos % (Auto) 1.4 (0-4) % Baso % (Auto) 0.3 (0-2) % Lymph # (Auto) 2.2 (1.2-4.9) X10*3/uL [place] # (Auto) 0.6 (0.1-1.2) X10*3/uL Eos # (Auto) 0.1 (0.0-0.4) X10*3/uL Baso # (Auto) 0.0 (0.0-0.2) X10*3/uL Abs Immat Gran (auto) 0.02 (0.00-0.03) X10*3/uL Absolute Neuts (auto) 5.8 (2.0-8.3) X10*3/uL Absolute Nucleated RBC 0.000 (0.0-0.012) X10*3/uL Nucleated RBC % (auto) 0.0 (0.0-0.2) /100WBC D-Dimer 349 NG/ML Hold Blue Top SEE NOTE Sodium (135-145) mmol/L Potassium (3.3-5.1) mmol/L Chloride (96-108) mmol/L Carbon Dioxide (22-29) mmol/L Anion Gap (12-20) BUN (9-16) mg/dL Creatinine (0.5-1.4) mg/dL Estim Creat Clear Calc Estimated GFR Random Glucose (60-115) mg/dL Lactic Acid (0.5-2.0) mmol/L Calcium (8.4-10.2) mg/dL Magnesium (1.6-2.6) mg/dL B-Natriuretic Peptide (<100) pg/mL Procalcitonin ng/mL Urine Color Urine Appearance Urine pH (5.0-8.0) Ur Specific [place] (1.005-1.025) Urine Protein (NEG-TRACE) MG/DL Urine Glucose (UA) (NEG) MG/DL Urine Ketones (NEG) MG/DL Urine Blood (NEG) Urine Nitrite (NEG) Ur Leukocyte Esterase (NEG) Urine Opiates Screen (Not Detect) Ur Barbiturates Screen (Not Detect) Ur Phencyclidine Scrn (Not Detect) Ur Amphetamines Screen (Not Detect) U Benzodiazepines Scrn (Not Detect) Urine Cocaine Screen (Not Detect) U Marijuana (THC) Screen (Not Detect) Coronavirus (PCR) (Negative) COVID-19 (NAYA) Negative (Negative) COVID-19 Clin Com See Note Influenza Type A (PCR) (Negative) Influenza Type B (PCR) (Negative) RSV RNA Qual (PCR) (Negative) 02/18/21 02/18/21 02/18/21 Range/Units 16:02 16:02 16:02 WBC (4.8-10.8) X10*3/uL RBC (4.20-5.50) X10*6/uL Hgb (12.0-16.0) g/dl Hct (37-47) % MCV (80-98) fL MCH (27.0-33.0) pg MCHC (31.0-35.0) g/dl RDW (11.0-16.0) % Plt Count (160-400) X10*3/uL MPV (9.4-12.3) fL Immature Gran % (Auto) (0.0-0.4) % Neut % (Auto) (45-73) % Lymph % (Auto) (20-40) % [place] % (Auto) (2-11) % Eos % (Auto) (0-4) % Baso % (Auto) (0-2) % Lymph # (Auto) (1.2-4.9) X10*3/uL [place] # (Auto) (0.1-1.2) X10*3/uL Eos # (Auto) (0.0-0.4) X10*3/uL Baso # (Auto) (0.0-0.2) X10*3/uL Abs Immat Gran (auto) (0.00-0.03) X10*3/uL Absolute Neuts (auto) (2.0-8.3) X10*3/uL Absolute Nucleated RBC (0.0-0.012) X10*3/uL Nucleated RBC % (auto) (0.0-0.2) /100WBC D-Dimer NG/ML Hold Blue Top Sodium 134 L (135-145) mmol/L Potassium 4.1 (3.3-5.1) mmol/L Chloride 97 (96-108) mmol/L Carbon Dioxide 29 (22-29) mmol/L Anion Gap 12 (12-20) BUN 7 L (9-16) mg/dL Creatinine 0.72 (0.5-1.4) mg/dL Estim Creat Clear Calc 73.1 Estimated GFR > 60 Random Glucose 95 (60-115) mg/dL Lactic Acid (0.5-2.0) mmol/L Calcium 8.7 (8.4-10.2) mg/dL Magnesium 2.1 (1.6-2.6) mg/dL B-Natriuretic Peptide 199 H (<100) pg/mL Procalcitonin 0.04 ng/mL Urine Color Urine Appearance Urine pH (5.0-8.0) Ur Specific [place] (1.005-1.025) Urine Protein (NEG-TRACE) MG/DL Urine Glucose (UA) (NEG) MG/DL Urine Ketones (NEG) MG/DL Urine Blood (NEG) Urine Nitrite (NEG) Ur Leukocyte Esterase (NEG) Urine Opiates Screen (Not Detect) Ur Barbiturates Screen (Not Detect) Ur Phencyclidine Scrn (Not Detect) Ur Amphetamines Screen (Not Detect) U Benzodiazepines Scrn (Not Detect) Urine Cocaine Screen (Not Detect) U Marijuana (THC) Screen (Not Detect) Coronavirus (PCR) (Negative) COVID-19 (NAYA) (Negative) COVID-19 Clin Com Influenza Type A (PCR) (Negative) Influenza Type B (PCR) (Negative) RSV RNA Qual (PCR) (Negative) 02/18/21 02/18/21 02/18/21 Range/Units 18:34 18:34 18:35 WBC (4.8-10.8) X10*3/uL RBC (4.20-5.50) X10*6/uL Hgb (12.0-16.0) g/dl Hct (37-47) % MCV (80-98) fL MCH (27.0-33.0) pg MCHC (31.0-35.0) g/dl RDW (11.0-16.0) % Plt Count (160-400) X10*3/uL MPV (9.4-12.3) fL Immature Gran % (Auto) (0.0-0.4) % Neut % (Auto) (45-73) % Lymph % (Auto) (20-40) % [place] % (Auto) (2-11) % Eos % (Auto) (0-4) % Baso % (Auto) (0-2) % Lymph # (Auto) (1.2-4.9) X10*3/uL [place] # (Auto) (0.1-1.2) X10*3/uL Eos # (Auto) (0.0-0.4) X10*3/uL Baso # (Auto) (0.0-0.2) X10*3/uL Abs Immat Gran (auto) (0.00-0.03) X10*3/uL Absolute Neuts (auto) (2.0-8.3) X10*3/uL Absolute Nucleated RBC (0.0-0.012) X10*3/uL Nucleated RBC % (auto) (0.0-0.2) /100WBC D-Dimer NG/ML Hold Blue Top Sodium (135-145) mmol/L Potassium (3.3-5.1) mmol/L Chloride (96-108) mmol/L Carbon Dioxide (22-29) mmol/L Anion Gap (12-20) BUN (9-16) mg/dL Creatinine (0.5-1.4) mg/dL Estim Creat Clear Calc Estimated GFR Random Glucose (60-115) mg/dL Lactic Acid 1.2 (0.5-2.0) mmol/L Calcium (8.4-10.2) mg/dL Magnesium (1.6-2.6) mg/dL B-Natriuretic Peptide (<100) pg/mL Procalcitonin ng/mL Urine Color YELLOW Urine Appearance CLEAR Urine pH 7.0 (5.0-8.0) Ur Specific [place] 1.010 (1.005-1.025) Urine Protein NEG (NEG-TRACE) MG/DL Urine Glucose (UA) NEG (NEG) MG/DL Urine Ketones NEG (NEG) MG/DL Urine Blood NEG (NEG) Urine Nitrite NEG (NEG) Ur Leukocyte Esterase NEG (NEG) Urine Opiates Screen POSITIVE H (Not Detect) Ur Barbiturates Screen Not Detected (Not Detect) Ur Phencyclidine Scrn Not Detected (Not Detect) Ur Amphetamines Screen POSITIVE H (Not Detect) U Benzodiazepines Scrn POSITIVE H (Not Detect) Urine Cocaine Screen Not Detected (Not Detect) U Marijuana (THC) Screen Not Detected (Not Detect) Coronavirus (PCR) (Negative) COVID-19 (NAYA) (Negative) COVID-19 Clin Com Influenza Type A (PCR) (Negative) Influenza Type B (PCR) (Negative) RSV RNA Qual (PCR) (Negative) 02/18/21 Range/Units 20:20 WBC (4.8-10.8) X10*3/uL RBC (4.20-5.50) X10*6/uL Hgb (12.0-16.0) g/dl Hct (37-47) % MCV (80-98) fL MCH (27.0-33.0) pg MCHC (31.0-35.0) g/dl RDW (11.0-16.0) % Plt Count (160-400) X10*3/uL MPV (9.4-12.3) fL Immature Gran % (Auto) (0.0-0.4) % Neut % (Auto) (45-73) % Lymph % (Auto) (20-40) % [place] % (Auto) (2-11) % Eos % (Auto) (0-4) % Baso % (Auto) (0-2) % Lymph # (Auto) (1.2-4.9) X10*3/uL [place] # (Auto) (0.1-1.2) X10*3/uL Eos # (Auto) (0.0-0.4) X10*3/uL Baso # (Auto) (0.0-0.2) X10*3/uL Abs Immat Gran (auto) (0.00-0.03) X10*3/uL Absolute Neuts (auto) (2.0-8.3) X10*3/uL Absolute Nucleated RBC (0.0-0.012) X10*3/uL Nucleated RBC % (auto) (0.0-0.2) /100WBC D-Dimer NG/ML Hold Blue Top Sodium (135-145) mmol/L Potassium (3.3-5.1) mmol/L Chloride (96-108) mmol/L Carbon Dioxide (22-29) mmol/L Anion Gap (12-20) BUN (9-16) mg/dL Creatinine (0.5-1.4) mg/dL Estim Creat Clear Calc Estimated GFR Random Glucose (60-115) mg/dL Lactic Acid (0.5-2.0) mmol/L Calcium (8.4-10.2) mg/dL Magnesium (1.6-2.6) mg/dL B-Natriuretic Peptide (<100) pg/mL Procalcitonin ng/mL Urine Color Urine Appearance Urine pH (5.0-8.0) Ur Specific [place] (1.005-1.025) Urine Protein (NEG-TRACE) MG/DL Urine Glucose (UA) (NEG) MG/DL Urine Ketones (NEG) MG/DL Urine Blood (NEG) Urine Nitrite (NEG) Ur Leukocyte Esterase (NEG) Urine Opiates Screen (Not Detect) Ur Barbiturates Screen (Not Detect) Ur Phencyclidine Scrn (Not Detect) Ur Amphetamines Screen (Not Detect) U Benzodiazepines Scrn (Not Detect) Urine Cocaine Screen (Not Detect) U Marijuana (THC) Screen (Not Detect) Coronavirus (PCR) NEGATIVE (Negative) COVID-19 (NAYA) (Negative) COVID-19 Clin Com Influenza Type A (PCR) NEGATIVE (Negative) Influenza Type B (PCR) NEGATIVE (Negative) RSV RNA Qual (PCR) NEGATIVE (Negative) <Wisam Sepulveda MD - Last Filed: 03/05/21 14:57> Discharge Plan Discharge Clinical Impression: Hypoxia, COVID-19, Left against medical advice <ALEXI Del Cid - Last Filed: 02/18/21 16:50> Patient Disposition: Left Against Medical Advice <ALEXI Del Cid - Last Filed: 02/18/21 16:50> Instructions: Against Medical Advice (ED), Hypoxia (ED), COVID-19 (Coronavirus Disease 2019) (ED) <ALEXI Del Cid - Last Filed: 02/18/21 16:50> Additional Instructions: You had positive COVID appearing lungs on your CT scan we recommended you stay here for further evaluation and treatment for admission due to COVID with hypoxia although you are requesting to leave against medical advice. Please return as soon as possible. At this time you will be okay for discharge. Please plan for self quarantine for up to 14 days. Do not expose yourself to others. You may not go to work. If testing does come back negative you may return to activities as long as you are no longer having any symptoms for at least 3 days. Please continue to follow cold instructions and wash your hands frequently. You may take Tylenol as directed on the bottle for pain or fever. Patient seen in the emergency department on 02/18/2021 and should be excused from work until negative test results AND until 72 hours without any symptoms AND at least 10 days have passed since symptoms first appeared or since last exposure to COVID-19 positive patient CDC Guidelines for home isolation: - Stay away from others - WEAR A MASK if you are sick AND STAY HOME - Cover your mouth and nose with a tissue when you cough or sneeze. Dispose of tissues in a lined trash can and wash your hands immediately with soap and water for at least 20 seconds. If soap and water are not available, clean hands with alcohol-based hand sole edge inker machine that contains at least 60% alcohol. - Clean your hands often with soap and water for at least 20 seconds - Avoid touching your eyes, nose and mouth with unwashed hands - Do not share dishes, drinking glasses, cups, eating utensils, towels, or bedding with other people in your home. After using these items, wash them thoroughly with soap and water or put in the agricultural chemist. - Clean high-touch surfaces in your isolation area ( sick room and bathroom) every day; let a caregiver clean and disinfect high-touch surfaces in other areas of the home. Clean the area or item with soap and water or another detergent if it is dirty. Then, use a household disinfectant. - Limit contact with pets and animals: If you must care for a pet, wash your hands before and after interacting with them). <ALEXI Del Cid - Last Filed: 02/18/21 16:50> Prescriptions: New albuterol sulfate 0.63 mg/3 mL solution for nebulization 0.63 mg inhalation QID PRN (Reason: shortness of breath or wheezing) Qty: 75 RF: 0 albuterol sulfate 90 mcg/actuation HFA aerosol inhaler 1 inh inhalation QID PRN (Reason: shortness of breath or wheezing) Qty: 8.5 RF: 0 azithromycin 250 mg tablet 250 mg PO DAILY Qty: 6 RF: 0 doxycycline monohydrate 100 mg capsule 100 mg PO BID 10 Days Qty: 20 RF: 0 ibuprofen 800 mg tablet 800 mg PO Q8H PRN (Reason: pain) Qty: 14 RF: 0 acetaminophen [Tylenol Extra Strength] 500 mg tablet 1,000 mg PO QID PRN (Reason: fever or pain) Qty: 14 RF: 0 dexamethasone [Decadron] 6 mg tablet 6 mg PO DAILY 5 Days Qty: 5 RF: 0 No Action morphine 30 mg Tablet Extended Release 30 mg PO Q12H RF: 0 morphine 30 mg Tablet 30 mg PO BID PRN (Reason: Pain (Scale Score 7-10)) RF: 0 nicotine 21 mg/24 hr patch 24 hour 1 patch transdermal Q24H 28 Days Qty: 28 RF: 0 (DME) nebulizer and compressor Device See Rx Instructions .ROUTE .MEDSUPPLY Qty: 1 RF: 0 gabapentin 400 mg capsule 800 mg PO TID RF: 0 dextroamphetamine-amphetamine 30 mg capsule,extended release 24hr 30 mg PO DAILY RF: 0 alprazolam 2 mg tablet 2 mg PO BID RF: 0 docusate sodium 100 mg capsule 100 mg PO DAILY Qty: 30 RF: 3 Citrucel 500 mg tablet 500 mg PO DAILY Qty: 30 RF: 2 dicyclomine 10 mg capsule 10 mg PO TID Qty: 90 RF: 2 dextroamphetamine-amphetamine 30 mg tablet 1 tab PO TID RF: 0 ondansetron 4 mg tablet,disintegrating 4 mg PO Q8H PRN (Reason: Nausea And Vomiting) RF: 0 Linzess 72 mcg capsule 72 mcg PO QAM Qty: 30 RF: 1 fluticasone propion-salmeterol [Wixela Inhub] 100-50 mcg/dose blister with device 1 inh inhalation BID RF: 0 <ALEXI Del Cid - Last Filed: 02/18/21 16:50> Referrals: Maximilian Mae FNP- [Primary Care Provider] - 2 days <ALEXI Del Cid - Last Filed: 02/18/21 16:50> Interventions: ED Discharge Assessment Last Done: 02/18/21 20:35 <ALEXI Del Cid - Last Filed: 02/18/21 16:50> Discharge Date/Time: 02/18/21 20:36 <ALEXI Del Cid - Last Filed: 02/18/21 16:50> Print Language: Persian <ALEXI Del Cid - Last Filed: 02/18/21 16:50>
[2021-02-18] MEDS: predniSONE 10 MG TABLET 50 MG PO (15:55)
[2021-02-18 16:08] LABS: MANUAL DIFF FLAG NO
[2021-02-18 16:09] LABS: Basophils Percent Auto 0.3 % (0-2); Eosinophils Absolute Auto 0.1 X10*3/uL (0.0-0.4); Eosinophils Percent Auto 1.4 % (0-4); Hematocrit 36.7 % (37-47); Imm Gran Abs Auto 0.02 X10*3/uL (0.00-0.03); Imm Gran Pct Auto 0.2 % (0.0-0.4); Lymphocytes Absolute Auto 2.2 X10*3/uL (1.2-4.9); Lymphocytes Percent Auto 24.8 % (20-40); Mean Corpuscular HGB Conc 32.7 g/dl (31.0-35.0); Mean Corpuscular Hemoglobin 29.7 pg (27.0-33.0); Mean Corpuscular Volume 90.8 fL (80-98); Mean Platelet Volume 10.5 fL (9.4-12.3); Monocytes Absolute Auto 0.6 X10*3/uL (0.1-1.2); Monocytes Percent Auto 6.9 % (2-11); Neutrophils Absolute Auto 5.8 X10*3/uL (2.0-8.3); Neutrophils Percent Auto 66.4 % (45-73); Platelet Count 257 X10*3/uL (160-400); Red Blood Count 4.04 X10*6/uL (4.20-5.50); Red Cell Distribution Width 13.7 % (11.0-16.0); White Blood Count 8.8 X10*3/uL (4.8-10.8)
[2021-02-18] MEDS: Albuterol Sulfate (0.083%) 2.5 MG/3 ML VIAL.NEB 10 MG INHALE (16:19)
[2021-02-18 16:20] VITALS: PULSE 100; O2SAT 93
[2021-02-18 16:24] LABS: D Dimer 349 NG/ML
[2021-02-18 16:31] LABS: COVID-19 Test Negative (Negative)
[2021-02-18 16:37] LABS: Anion Gap 12 (12-20); Blood Urea Nitrogen 7 mg/dL (9-16); Calcium 8.7 mg/dL (8.4-10.2); Carbon Dioxide 29 mmol/L (22-29); Chloride 97 mmol/L (96-108); Creatinine Clr Calc Pharmacy 73.1; Estimated Glomerular Filt Rate > 60; Glucose Random 95 mg/dL (60-115); Magnesium 2.1 mg/dL (1.6-2.6); Potassium 4.1 mmol/L (3.3-5.1); Sodium 134 mmol/L (135-145)
[2021-02-18 16:38] LABS: B Type Natriuretic Peptide 199 pg/mL (<100)
[2021-02-18 16:52] LABS: Procalcitonin 0.04 ng/mL
[2021-02-18] MEDS: 0.9 % Sodium Chloride 1,000 ML 999 ML IVCONT (18:37)
[2021-02-18] MEDS: cefTRIAXone sodium 1 GM in 0.9 % Sodium Chloride 50 ML IV (18:37)
[2021-02-18 18:54] VITALS: BP 122/76; PULSE 95; RESP 18; TEMP 36.7; O2SAT 96
[2021-02-18 19:01] LABS: Glucose Urine UA NEG (NEG); Leukocyte Esterase Urine NEG (NEG); Nitrite Urine NEG (NEG); Urine Blood NEG (NEG); Urine Ketones NEG (NEG); Urine Protein NEG (NEG-TRACE)
[2021-02-18 19:02] LABS: Lactic Acid 1.2 mmol/L (0.5-2.0)
[2021-02-18 19:06] LABS: Appearance Urine CLEAR; Color Urine YELLOW
[2021-02-18] MEDS: Azithromycin 500 MG in 0.9 % Sodium Chloride 250 ML 125 MG IV (19:28)
[2021-02-18 19:29] LABS: Amphetamine Screen Urine POSITIVE (Not Detect); Barbiturates, Urine Not Detected (Not Detect); Benzodiazepines Screen Urine POSITIVE (Not Detect); Cannabinoid Screen Urine Not Detected (Not Detect); Cocaine Screen Urine Not Detected (Not Detect); Opiate Screen Urine POSITIVE (Not Detect); Phencyclidine Screen Urine Not Detected (Not Detect)
--- NOTE | 2021-02-18 20:13 | PC.NURSE ---
Pt declined admission- liseth Rocha at bedside to discuss risks, pt verbalized understanding of risk.
[2021-02-18 21:24] LABS: Influenza A PCR NEGATIVE (Negative); Influenza B PCR NEGATIVE (Negative); Resp Syncy Virus RNA Qual PCR NEGATIVE (Negative); SARS COV2 PCR INHOUSE NEGATIVE (Negative)
== END 2021-02-18 20:36 | disposition left against medical advice (07) ==
PROVIDERS: Physician Assistant; Physician Assistant Medical; Emergency Provider Emergency Medicine; PCP Nurse Practitioner Family
DX: R09.02 Hypoxemia (principal); R06.00 Dyspnea, unspecified; Z20.822 Contact with and (suspected) exposure to COVID-19; J45.909 Unspecified asthma, uncomplicated; F17.210 Nicotine dependence, cigarettes, uncomplicated; G89.29 Other chronic pain; Z79.891 Long term (current) use of opiate analgesic
CPT/HCPCS: 0241U; 36415; 71045; 71275; 80048; 80307; 81003; 83605; 83735; 83880; 84145; 85025; 85379; 87040; 87635; 94640; 94644; 96361; 96365; 96368; 99284; J0456; J0696; Q9967

== ENCOUNTER 2021-03-05 15:17 | Outpatient (REF) | payer MEDICARE, OTHER, SELFPAY ==
--- NOTE | ~2021-03-05 | XR_ITS ---
EXAMINATION: XR CHEST CLINICAL INFORMATION: Pneumonia COMPARISON: 02/18/2021 TECHNIQUE: 2 views of the chest were obtained. FINDINGS: The lungs are well expanded. Patchy bilateral airspace opacities are again noted with partial improvement of aeration from previous imaging. No pleural effusion or pneumothorax. The cardiomediastinal silhouette is within normal limits. XR/XR chest 2V IMPRESSION: Partial improvement of patchy bilateral airspace opacities. No new dense consolidation.
== END 2021-03-05 15:18 | disposition home or self-care (01) ==
LOC: HO.HMGCX 15:17
PROVIDERS: PCP Nurse Practitioner Family; Visit Provider Nurse Practitioner Family
DX: J18.9 Pneumonia, unspecified organism (principal)
CPT/HCPCS: 71046

== ENCOUNTER → 2021-03-23 11:11 | Outpatient (BNVA) | payer MEDICARE, SELFPAY | PROVIDERS: PCP Nurse Practitioner Family; Visit Provider Anesthesiology | DX: G90.521 Complex regional pain syndrome I of right lower limb (principal); G89.4 Chronic pain syndrome; Z79.891 Long term (current) use of opiate analgesic | CPT/HCPCS: 99202 ==

== ENCOUNTER → 2021-04-06 09:55 | Outpatient (BNVA) | payer MEDICARE, SELFPAY | PROVIDERS: PCP Nurse Practitioner Family; Visit Provider Anesthesiology | DX: G90.521 Complex regional pain syndrome I of right lower limb (principal); G89.4 Chronic pain syndrome; Z79.891 Long term (current) use of opiate analgesic | CPT/HCPCS: 99212 ==

== ENCOUNTER 2021-04-13 13:53 | Outpatient (REF) | payer MEDICARE, SELFPAY ==
[2021-04-13 16:00] LABS: Lipase 15 U/L (8-78)
== END 2021-04-13 13:54 | disposition home or self-care (01) ==
LOC: HO.LAB 13:53
PROVIDERS: PCP Nurse Practitioner Family; Visit Provider Nurse Practitioner Family
DX: K58.9 Irritable bowel syndrome, unspecified (principal); K59.00 Constipation, unspecified; J18.9 Pneumonia, unspecified organism
CPT/HCPCS: 36415; 83690; 99212

== ENCOUNTER 2021-04-20 | Outpatient (REF) | payer MEDICARE, SELFPAY | END 2021-04-20 00:01 | disposition home or self-care (01) | LOC: CF | PROVIDERS: PCP Nurse Practitioner Family; Visit Provider Anesthesiology | DX: G90.521 Complex regional pain syndrome I of right lower limb (principal); G89.4 Chronic pain syndrome; R01.1 Cardiac murmur, unspecified; Z79.891 Long term (current) use of opiate analgesic | CPT/HCPCS: 99212 ==

== ENCOUNTER → 2021-05-21 13:23 | Outpatient (BNVA) | payer MEDICARE, SELFPAY | PROVIDERS: PCP Nurse Practitioner Family; Visit Provider Anesthesiology | DX: G90.521 Complex regional pain syndrome I of right lower limb (principal); G89.4 Chronic pain syndrome; Z79.891 Long term (current) use of opiate analgesic | CPT/HCPCS: 99212 ==

== ENCOUNTER → 2021-06-25 13:31 | Outpatient (BNVA) | payer MEDICARE, SELFPAY | PROVIDERS: PCP Nurse Practitioner Family; Visit Provider Anesthesiology | DX: G90.521 Complex regional pain syndrome I of right lower limb (principal); G89.4 Chronic pain syndrome; Z79.891 Long term (current) use of opiate analgesic | CPT/HCPCS: 99212 ==

== ENCOUNTER → 2021-07-22 15:11 | Outpatient (BNVA) | payer MEDICARE, OTHER, SELFPAY | PROVIDERS: PCP Nurse Practitioner Family; Visit Provider Anesthesiology | DX: G90.521 Complex regional pain syndrome I of right lower limb (principal); G89.4 Chronic pain syndrome; Z79.891 Long term (current) use of opiate analgesic | CPT/HCPCS: 99212 ==

== ENCOUNTER 2021-08-04 10:39 | Inpatient (IN) | payer MEDICARE, OTHER, SELFPAY ==
--- NOTE | ~2021-08-04 | CT_ITS ---
EXAMINATION: CT ANGIOGRAM OF THE CHEST WITH AND WITHOUT CONTRAST (CT PULMONARY ANGIOGRAM FOR PE) CLINICAL INFORMATION: Reason for Exam chest pain, and positive ddimer COMPARISON: Previous chest CTA January 2021 and chest x-ray from earlier the same day TECHNIQUE: Prior to contrast administration, noncontrast localization images were obtained. Subsequently, multidetector volumetric imaging was performed from the thoracic inlet to below the diaphragms following the administration of 80 mL Omnipaque 350 intravenous contrast. No contrast reaction reported Sagittal, coronal, and MIP oblique sagittal reformatted images were obtained on the CT workstation, uploaded to PACS, and reviewed. This CT examination was performed using dose optimization techniques as appropriate, variously including the following: *Automated exposure control *Adjustment of mA and/or kV according to patient size (this includes techniques or standardized protocols for targeted exams where dose is matched to indication/reason for exam; i.e. extremities or head) *Use of iterative reconstruction technique Total exam dose-length product 202 mGy-cm FINDINGS: QUALITY OF STUDY/CONTRAST BOLUS: Satisfactory. PULMONARY ARTERIES: No central or segmental pulmonary emboli. THORACIC AORTA: No aneurysm or dissection. LUNG: There is evidence of severe diffuse lung disease with increased interstitial markings, cystic changes and areas of groundglass attenuation. This is seen diffusely throughout the lungs and appears increased from January 2021 PLEURA: No pleural effusion or pneumothorax. MEDIASTINUM: Normal heart size. No pericardial effusion. There are enlarged mediastinal and bilateral hilar lymph nodes. This appears increased from January 2021 exam as well. Largest lymph nodes are a left AP window lymph node measuring 2 cm in short axis axial image 22 series 5. No evidence of septal bowing or right heart strain. CHEST WALL/AXILLA: No axillary or internal mammary lymphadenopathy. OSSEOUS STRUCTURES: No acute or suspicious osseous abnormality. Degenerative changes of the spine. UPPER ABDOMEN: The gallbladder is upper normal in size. No reflux of contrast into the hepatic veins to suggest elevated right heart pressures. CT/CT angio chest PE protocol IMPRESSION: No evidence of pulmonary embolism. Worsening diffuse lung disease with increased interstitial markings, groundglass attenuation and cystic changes. This is a nonspecific appearance. Differential would include chronic interstitial lung disease with acute alveolitis, atypical viral pneumonia, sarcoidosis, alveolar proteinosis and new pulmonary edema or pulmonary hemorrhage superimposed on chronic lung disease. Enlarged mediastinal and hilar lymph nodes increased from previous exam. VTE: negative
--- NOTE | ~2021-08-04 | XR_ITS ---
EXAMINATION: XR CHEST CLINICAL INFORMATION: Shortness of breath COMPARISON: Previous chest x-rays most recent February 2021 TECHNIQUE: Frontal view of the chest was obtained. FINDINGS: The cardiac and mediastinal contours are stable. The lung volumes are low. When compared with previous chest x-rays there is evidence of underlying interstitial lung disease or fibrosis. There are new perihilar areas of airspace disease. Differential would include coronary edema and pneumonia. There is no pleural effusion. No acute bone abnormality. XR/XR chest 1V IMPRESSION: Chronic changes in the lungs suggestive of interstitial lung disease or fibrosis. New bilateral perihilar opacities. Differential would include pulmonary edema and acute pneumonia.
--- NOTE | ~2021-08-04 | XR_ITS ---
EXAMINATION: XR CHEST CLINICAL INFORMATION: Hypoxia. COMPARISON: 08/04/2021 portable chest and chest CTA TECHNIQUE: Frontal view of the chest was obtained. FINDINGS: Diffuse bilateral patchy pulmonary opacities are seen which demonstrate similar distribution, but mild interval increase. The heart and mediastinal structures are unremarkable. XR/XR chest 1V IMPRESSION: Diffuse bilateral patchy opacities show similar distribution with mild interval increase. Given the previous CT findings, these findings suggest an acute infectious/inflammatory overlying chronic interstitial disease.
[2021-08-04 11:37] VITALS: BP 115/67; PULSE 121; RESP 26; O2SAT 68; BMI 24.7
[2021-08-04 11:48] VITALS: O2SAT 91
--- NOTE | 2021-08-04 12:01 | ED.GENADULT ---
HPI - General Adult General Chief complaint: Upper Respiratory Symptoms Stated complaint: difficulty breathing Time Seen by Provider: 08/04/21 12:00 Source: patient Mode of arrival: ambulatory Limitations: no limitations History of Present Illness HPI narrative: right sided chest pain with shortness of breath that started Tuesday night. Patient is a smoker but typically does not have lung problems. Patient has had one shot vaccine with [employer]. Chest xray in January showed COVID. Onset (ago): day(s) Location: chest Radiation: non-radiation Severity: mild Quality: aching Pain Consistency: intermittent Associated symptoms: chest pain and shortness of breath Related Data Home Medications Medication Instructions Recorded Confirmed alprazolam 2 mg tablet 0.5 mg PO BEDTIME 09/24/20 08/04/21 gabapentin 400 mg capsule 800 mg PO TID cap 09/24/20 08/04/21 dextroamphetamine-amphetamine 30 1 tab PO DAILY PRN 08/04/21 08/04/21 mg tablet ibuprofen 200 mg tablet 200 mg PO Q6H PRN 08/04/21 08/04/21 morphine 15 mg immediate release 15 mg PO Q6H PRN 08/04/21 08/04/21 tablet Previous Rx's Medication Instructions Recorded albuterol sulfate 0.63 mg/3 mL 0.63 mg INHALATION QID PRN #75 ml 02/18/21 solution for nebulization albuterol sulfate 90 mcg/actuation 1 inh INHALATION QID PRN #8.5 g 02/18/21 aerosol inhaler nebulizer and compressor #1 ea 03/06/21 Allergies Allergy/AdvReac Type Severity Reaction Status Date / Time No Known Allergies Allergy Verified 07/22/21 15:58 Review of Systems Constitutional: Constitutional: Reports no additional constitutional complaints Eyes: Eyes: Reports no additional eye complaints ENT: Denies dizziness Cardiovascular: Cardiovascular: Reports no additional cardiovascular complaints Respiratory: Respiratory: Reports as per HPI Gastrointestinal: Gastrointestinal: Reports no additional gastrointestinal complaints Genitourinary: Genitourinary: Reports no additional female genitourinary complaints Musculoskeletal: Musculoskeletal: Reports no additional musculoskeletal complaints Integumentary/Breasts: Skin/Breast: Denies rash Neurologic: Reports system reviewed and no additional complaints, except as documented, Denies dizziness and Denies Sensory deficit (Neuro) Psychiatric: Psychiatric: Denies anxiety PMFSH Past Medical History Medical History ADHD Anxiety Chronic idiopathic constipation Chronic pain syndrome Complex regional pain syndrome of right lower extremity Constipation Depression IBS (irritable bowel syndrome) 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, right foot Peripheral neuropathy Scoliosis Surgical History History of colonoscopy Family History Family History Father History of hemochromatosis Mother History of high blood pressure Social History Social History Household Members: None Alcohol intake: never Cigarettes Per Day: 3 Second Hand Smoke Exposure: No Advance Directives: No Advance Directives Information Provided: No Patient : No service: No Current occupational status: disabled Physical Exam Vital Signs: Vital Signs: Last Vital Signs Temp 98.1 F 08/04/21 16:34 Pulse 101 H 08/04/21 16:34 Resp 17 08/04/21 16:34 BP 109/62 08/04/21 16:34 Pulse Ox 94 08/04/21 16:34 Body Mass Index 24.7 Const: General: healthy appearing Nutritional Appearance: average body habitus Orientation/consciousness: oriented to person and patient oriented x3 Limitations: no limitations HENMT: Head: Yes normal to inspection Ears: external ears normal General nose exam: Normal external nose present Mouth: Normal oral and palatal mucosa present and oropharynx normal Throat: Yes posterior oropharynx normal Eyes: General: appearance normal, both eyes and all related structures Neck: Other: supple Neck: Yes normal visual inspection Chest: Chest palpation & inspection: normal inspection of the chest Resp: Other: diffuse wheezing and crackles with cough, some shortness of breath Cardio: Jugular venous distension: no JVD Rate: regular rate Rhythm: regular rhythm Heart sounds: S1 normal heart sound present and S2 normal heart sound present GI: Inspection: Yes normal to inspection Palpation (GI): Soft to palpation, nontender and No hepatosplenomegaly present Auscultation: normal bowel sounds : General: Yes no CVA tenderness Back/Spine/Pelvis: Back: no CVA tenderness Skin: General skin exam: no rashes or lesions noted Neuro: General: oriented to person and patient oriented x3 Cranial nerves: Yes CN's II-XII intact bilaterally Motor exam (neuro): 5/5 motor strength present throughout Sensory Exam: No Sensory deficit (Neuro) Extrem: General: Yes normal to inspection Psych: Appearance: grossly normal Course Reevaluation(s) Reevaluation #1: Patient with very ischemic EKG will start ASA and nitro Time: 12:27 Reevaluation #2: pain free, repeating EKG and troponin. Starting nitropaste and lasis Time: 14:00 Reevaluation #3: repaeat EKG: sinus 100, still with inferior, anterior and septal ischemai, unchanged from prior Time: 14:32 Consultations Consultation #1: Discussed with Dr. Barber, no need for IV heparin or transfer, he feels EKG may be due to right heart strain from pulmonary fibrosis Time: 15:36 Medical Decision Making Lab Data Result diagrams: 08/04/21 12:43 08/04/21 12:43 Labs: Lab Results 08/04/21 08/04/21 08/04/21 Range/Units 12:43 12:43 12:43 WBC 9.3 (4.8-10.8) X10*3/uL RBC 3.70 L (4.20-5.50) X10*6/uL Hgb 10.7 L (12.0-16.0) g/dl Hct 32.5 L (37-47) % MCV 87.8 (80-98) fL MCH 28.9 (27.0-33.0) pg MCHC 32.9 (31.0-35.0) g/dl RDW 15.8 (11.0-16.0) % Plt Count 350 D (160-400) X10*3/uL MPV 11.2 (9.4-12.3) fL Immature Gran % (Auto) 0.2 (0.0-0.4) % Neut % (Auto) 71.0 (45-73) % Lymph % (Auto) 23.0 (20-40) % [place] % (Auto) 5.0 (2-11) % Eos % (Auto) 0.6 (0-4) % Baso % (Auto) 0.2 (0-2) % Lymph # (Auto) 2.1 (1.2-4.9) X10*3/uL [place] # (Auto) 0.5 (0.1-1.2) X10*3/uL Eos # (Auto) 0.1 (0.0-0.4) X10*3/uL Baso # (Auto) 0.0 (0.0-0.2) X10*3/uL Abs Immat Gran (auto) 0.02 (0.00-0.03) X10*3/uL Absolute Neuts (auto) 6.6 (2.0-8.3) X10*3/uL Absolute Nucleated RBC 0.000 (0.0-0.012) X10*3/uL Nucleated RBC % (auto) 0.0 (0.0-0.2) /100WBC D-Dimer 698 NG/ML Sodium 136 (135-145) mmol/L Potassium 3.5 (3.3-5.1) mmol/L Chloride 99 (96-108) mmol/L Carbon Dioxide 26 (22-29) mmol/L Anion Gap 15 (12-20) BUN 5 L (9-16) mg/dL Creatinine 0.65 (0.5-1.4) mg/dL Estim Creat Clear Calc 80.4 Estimated GFR > 60 Random Glucose 98 (60-115) mg/dL Calcium 8.6 (8.4-10.2) mg/dL Troponin I High Sens (<3.5-17.0) ng/L B-Natriuretic Peptide (<100) pg/mL Coronavirus (PCR) (Negative) Influenza Type A (PCR) (Negative) Influenza Type B (PCR) (Negative) RSV RNA Qual (PCR) (Negative) 08/04/21 08/04/21 08/04/21 Range/Units 12:43 12:43 12:43 WBC (4.8-10.8) X10*3/uL RBC (4.20-5.50) X10*6/uL Hgb (12.0-16.0) g/dl Hct (37-47) % MCV (80-98) fL MCH (27.0-33.0) pg MCHC (31.0-35.0) g/dl RDW (11.0-16.0) % Plt Count (160-400) X10*3/uL MPV (9.4-12.3) fL Immature Gran % (Auto) (0.0-0.4) % Neut % (Auto) (45-73) % Lymph % (Auto) (20-40) % [place] % (Auto) (2-11) % Eos % (Auto) (0-4) % Baso % (Auto) (0-2) % Lymph # (Auto) (1.2-4.9) X10*3/uL [place] # (Auto) (0.1-1.2) X10*3/uL Eos # (Auto) (0.0-0.4) X10*3/uL Baso # (Auto) (0.0-0.2) X10*3/uL Abs Immat Gran (auto) (0.00-0.03) X10*3/uL Absolute Neuts (auto) (2.0-8.3) X10*3/uL Absolute Nucleated RBC (0.0-0.012) X10*3/uL Nucleated RBC % (auto) (0.0-0.2) /100WBC D-Dimer NG/ML Sodium (135-145) mmol/L Potassium (3.3-5.1) mmol/L Chloride (96-108) mmol/L Carbon Dioxide (22-29) mmol/L Anion Gap (12-20) BUN (9-16) mg/dL Creatinine (0.5-1.4) mg/dL Estim Creat Clear Calc Estimated GFR Random Glucose (60-115) mg/dL Calcium (8.4-10.2) mg/dL Troponin I High Sens 29.5 H* (<3.5-17.0) ng/L B-Natriuretic Peptide 591 H (<100) pg/mL Coronavirus (PCR) NEGATIVE (Negative) Influenza Type A (PCR) NEGATIVE (Negative) Influenza Type B (PCR) NEGATIVE (Negative) RSV RNA Qual (PCR) NEGATIVE (Negative) 08/04/21 Range/Units 14:42 WBC (4.8-10.8) X10*3/uL RBC (4.20-5.50) X10*6/uL Hgb (12.0-16.0) g/dl Hct (37-47) % MCV (80-98) fL MCH (27.0-33.0) pg MCHC (31.0-35.0) g/dl RDW (11.0-16.0) % Plt Count (160-400) X10*3/uL MPV (9.4-12.3) fL Immature Gran % (Auto) (0.0-0.4) % Neut % (Auto) (45-73) % Lymph % (Auto) (20-40) % [place] % (Auto) (2-11) % Eos % (Auto) (0-4) % Baso % (Auto) (0-2) % Lymph # (Auto) (1.2-4.9) X10*3/uL [place] # (Auto) (0.1-1.2) X10*3/uL Eos # (Auto) (0.0-0.4) X10*3/uL Baso # (Auto) (0.0-0.2) X10*3/uL Abs Immat Gran (auto) (0.00-0.03) X10*3/uL Absolute Neuts (auto) (2.0-8.3) X10*3/uL Absolute Nucleated RBC (0.0-0.012) X10*3/uL Nucleated RBC % (auto) (0.0-0.2) /100WBC D-Dimer NG/ML Sodium (135-145) mmol/L Potassium (3.3-5.1) mmol/L Chloride (96-108) mmol/L Carbon Dioxide (22-29) mmol/L Anion Gap (12-20) BUN (9-16) mg/dL Creatinine (0.5-1.4) mg/dL Estim Creat Clear Calc Estimated GFR Random Glucose (60-115) mg/dL Calcium (8.4-10.2) mg/dL Troponin I High Sens 21.5 H* (<3.5-17.0) ng/L B-Natriuretic Peptide (<100) pg/mL Coronavirus (PCR) (Negative) Influenza Type A (PCR) (Negative) Influenza Type B (PCR) (Negative) RSV RNA Qual (PCR) (Negative) ECG Data Attestation: I personally reviewed and interpreted this ECG as follows: Interpretation: normal sinus rate 100, flipped Ts inferior and anterior septal consistent with ischemia Discharge Plan Discharge Clinical Impression: Chronic interstitial lung disease, Hypoxia Congestive heart failure (CHF) Qualifiers: Heart failure type: biventricular Qualified Code(s): I50.82 - Biventricular heart failure Patient Disposition: Admitted As Inpatient
--- NOTE | 2021-08-04 12:05 | ECG_ITS ---
Test Reason : SOB Blood Pressure : / mmHG Vent. Rate : 103 BPM Atrial Rate : 103 BPM P-R Int : 168 ms QRS Dur : 082 ms QT Int : 390 ms P-R-T Axes : 041 113 -08 degrees QTc Int : 510 ms Sinus tachycardia Possible Left atrial enlargement Left posterior fascicular block T wave abnormality, consider inferior ischemia T wave abnormality, consider anterior ischemia Abnormal ECG When compared with ECG of 28-SEP-2004 08:57, T wave inversion now evident in Inferior leads T wave inversion now evident in Anterior leads Referred By: Wisam Sepulveda Electronically Signed By:CK RESENDIZ
--- NOTE | 2021-08-04 12:30 | PC.NURSE ---
Pt alert and oriented, vss. Pt states she became sob on Tuesday at her daughter's wedding and it has gotten worse since then. She is a current everyday smoker and states she never had any lung issues in the past. Pt reports that she had one covid vaccine but got sick and did not get her second dose. On arrival to the ed pt was satting low 80s on room air. pt placed on 3L n/c which brought her O2 saturation to 94 -96%. she reports chest pain with inspiration and sob with exertion. No other symptoms reported. she denies fever/n/v/diarrhea. An iv line was established, labs drawn, meds given as documented. pt resting quietly, no apparent distress noted. commode at bedside.
[2021-08-04 12:47] LABS: MANUAL DIFF FLAG NO
[2021-08-04 12:49] LABS: Basophils Percent Auto 0.2 % (0-2); Eosinophils Absolute Auto 0.1 X10*3/uL (0.0-0.4); Eosinophils Percent Auto 0.6 % (0-4); Hematocrit 32.5 % (37-47); Hemoglobin 10.7 g/dl (12.0-16.0); Imm Gran Abs Auto 0.02 X10*3/uL (0.00-0.03); Imm Gran Pct Auto 0.2 % (0.0-0.4); Lymphocytes Absolute Auto 2.1 X10*3/uL (1.2-4.9); Mean Corpuscular HGB Conc 32.9 g/dl (31.0-35.0); Mean Corpuscular Hemoglobin 28.9 pg (27.0-33.0); Mean Corpuscular Volume 87.8 fL (80-98); Mean Platelet Volume 11.2 fL (9.4-12.3); Monocytes Absolute Auto 0.5 X10*3/uL (0.1-1.2); Neutrophils Absolute Auto 6.6 X10*3/uL (2.0-8.3); Platelet Count 350 X10*3/uL (160-400); Red Cell Distribution Width 15.8 % (11.0-16.0); White Blood Count 9.3 X10*3/uL (4.8-10.8)
[2021-08-04] MEDS: Nitroglycerin 0.4 MG TAB.SUBL SUBLINGUAL (12:53)
[2021-08-04] MEDS: Aspirin Enteric Coated 81 MG TABLET.DR 162 MG PO (12:54)
[2021-08-04 12:55] VITALS: BP 126/75; PULSE 101; O2SAT 93
[2021-08-04 12:58] LABS: D Dimer 698 NG/ML
[2021-08-04 13:03] LABS: Anion Gap 15 (12-20); Blood Urea Nitrogen 5 mg/dL (9-16); Calcium 8.6 mg/dL (8.4-10.2); Carbon Dioxide 26 mmol/L (22-29); Chloride 99 mmol/L (96-108); Creatinine Clr Calc Pharmacy 80.4; Estimated Glomerular Filt Rate > 60; Glucose Random 98 mg/dL (60-115); Potassium 3.5 mmol/L (3.3-5.1); Sodium 136 mmol/L (135-145)
[2021-08-04] MEDS: Albuterol Sulfate 90 MCG 8 GM INHALER 4 PUFF INHALE (13:05)
[2021-08-04 13:07] VITALS: PULSE 102; O2SAT 91
[2021-08-04 13:11] LABS: B Type Natriuretic Peptide 591 pg/mL (<100)
[2021-08-04 13:23] LABS: Troponin-I High Sensitivity 29.5 ng/L (<3.5-17.0)
[2021-08-04 13:43] LABS: Influenza A PCR NEGATIVE (Negative); Influenza B PCR NEGATIVE (Negative); Resp Syncy Virus RNA Qual PCR NEGATIVE (Negative); SARS COV2 PCR INHOUSE NEGATIVE (Negative)
--- NOTE | 2021-08-04 13:52 | ECG_ITS ---
Test Reason : REPEAT Blood Pressure : / mmHG Vent. Rate : 101 BPM Atrial Rate : 101 BPM P-R Int : 164 ms QRS Dur : 086 ms QT Int : 396 ms P-R-T Axes : 040 108 -33 degrees QTc Int : 513 ms Sinus tachycardia Possible Left atrial enlargement Rightward axis T wave abnormality, consider inferior ischemia T wave abnormality, consider anterolateral ischemia Abnormal ECG When compared with ECG of 04-AUG-2021 12:18, No significant change was found Referred By: Wisam Sepulveda Electronically Signed By:CK RESENDIZ
[2021-08-04] MEDS: Furosemide 20 MG/2 ML VIAL IVPUSH ×2 (14:00→19:24)
[2021-08-04] MEDS: Nitroglycerin 2 % Oint 1 GM Packet 1 INCH TRANSDERMA (14:00)
[2021-08-04 15:20] LABS: Troponin-I High Sensitivity 21.5 ng/L (<3.5-17.0)
[2021-08-04] MEDS: iohexoL 350 MG/ML 100 ML INFUS..BTL 85 ML IV (16:23)
[2021-08-04 16:34] VITALS: BP 109/62; PULSE 101; RESP 17; TEMP 36.7; O2SAT 94
[2021-08-04] MEDS: iohexoL 350 MG/ML 100 ML INFUS..BTL IV (16:38)
--- NOTE | 2021-08-04 17:00 | PM.IMHP ---
History of Present Illness Date of Service: 08/04/21 Chief Complaint: Chest pain a, shortness of breath 61-year-old female with multiple medical issues including I LD, long-term opioid use, history of COVID pneumonia, smoker- Patient came to the hospital because of recent chest pain started on Tuesday-when she was at green party of her daughter and she said it was very stressful also situation for her. Progressively afterwards she started to have short of breath, has some cough but no significant sputum. In addition patient said the chest pain was 3-10, stabbing type, nonradiating left-sided, she said it go to worse with exertion and gets better with resting, in addition she says that the chest pain says around 1 hour when it comes. She received Lasix nitro and aspirin in the emergency room she says her breathing seems much better as well as chest chest pain is also improving EKG shows ST changes in more prominnet anterio lateral area rather than lateral area Lab imaging EKG reviewed: Patient case was discussed by the ED physician with Cardiology and recommendation: Continue aspirin statin and admit patient for CHF, chest pain. Troponin seems to be flat CTA shows diffuse lung disease question I LD versus postviral changes. Review of Systems Review of Systems: Patient has chest pain and shortness of breath, has dry cough. 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, right foot Peripheral neuropathy Scoliosis Family History Father History of hemochromatosis Mother History of high blood pressure Surgical History History of colonoscopy Social History Household Members: None Alcohol intake: never Cigarettes Per Day: 3 Second Hand Smoke Exposure: No Advance Directives: No Advance Directives Information Provided: No Patient : No service: No Current occupational status: disabled Meds Allergies Allergy/AdvReac Type Severity Reaction Status Date / Time No Known Allergies Allergy Verified 07/22/21 15:58 Active Medications: Current Medications Generic Name Dose Route Start Last Admin Trade Name Freq PRN Reason Stop Dose Admin Albuterol/Ipratropium 3 ml 08/04/21 16:58 Albuterol/Iprat 2.5/0.5mg 3 Ml Ampul.Neb INHALE Q4H PRN Shortness of Breath Enoxaparin Sodium 40 mg 08/04/21 18:00 Enoxaparin Sodium 40 Mg/0.4 Ml Syringe SUBCUT Q24H [facility] Nitroglycerin 0.4 mg 08/04/21 12:20 08/04/21 12:53 Nitroglycerin 0.4 Mg Tab.Subl SUBLINGUAL 0.4 mg [id number] PRN Administration Chest Pain Pharmacy Consult 1 each 08/04/21 15:59 Consult Rx Perform Med Rec MISCELLANE ONCE PRN Consult order Sodium Chloride 3 ml 08/05/21 00:00 0.9 % Sodium Chloride Flush 3 Ml Syringe IVFLUSH QSHIFT [facility] Home Medications Medication Instructions Recorded Confirmed Last Taken Type alprazolam 2 mg tablet 0.5 mg PO BEDTIME 09/24/20 08/04/21 08/03/21 History gabapentin 400 mg capsule 800 mg PO TID cap 09/24/20 08/04/21 08/04/21 History dextroamphetamine-amphetamine 30 1 tab PO DAILY PRN 08/04/21 08/04/21 Unknown History mg tablet ibuprofen 200 mg tablet 200 mg PO Q6H PRN 08/04/21 08/04/21 Unknown History morphine 15 mg immediate release 15 mg PO Q6H PRN 08/04/21 08/04/21 08/04/21 History tablet Physical Exam Vital Signs and Narrative: Vital Signs: Last Vital Signs Temp 98.1 F 08/04/21 16:34 Pulse 101 H 08/04/21 16:34 Resp 17 08/04/21 16:34 BP 109/62 08/04/21 16:34 Pulse Ox 94 08/04/21 16:34 Body Mass Index 24.7 Physical exam: Constitutional: Not in acute distress Cvs: rrr, [id number] , no murmur res: air entry seems fair , slightly diminshed at bases , has few scattered rhonchii abd: no rebound or guarding ,nt, bs present. ext pulses present , no cyanosis neuro: axo3 , nonfocal. 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 Results Labs CBC and Chem 7: 08/04/21 12:43 08/04/21 12:43 Labs: Laboratory Results - last 24 hr 08/04/21 08/04/21 08/04/21 12:43 12:43 12:43 MCV 87.8 MCH 28.9 MCHC 32.9 RDW 15.8 Plt Count 350 D MPV 11.2 Immature Gran % (Auto) 0.2 Neut % (Auto) 71.0 Lymph % (Auto) 23.0 [place] % (Auto) 5.0 Eos % (Auto) 0.6 Baso % (Auto) 0.2 Lymph # (Auto) 2.1 [place] # (Auto) 0.5 Eos # (Auto) 0.1 Baso # (Auto) 0.0 Abs Immat Gran (auto) 0.02 Absolute Neuts (auto) 6.6 Absolute Nucleated RBC 0.000 Nucleated RBC % (auto) 0.0 D-Dimer 698 Anion Gap 15 Estim Creat Clear Calc 80.4 Estimated GFR > 60 Random Glucose 98 Calcium 8.6 Troponin I High Sens B-Natriuretic Peptide Coronavirus (PCR) Influenza Type A (PCR) Influenza Type B (PCR) RSV RNA Qual (PCR) 08/04/21 08/04/21 08/04/21 12:43 12:43 12:43 MCV MCH MCHC RDW Plt Count MPV Immature Gran % (Auto) Neut % (Auto) Lymph % (Auto) [place] % (Auto) Eos % (Auto) Baso % (Auto) Lymph # (Auto) [place] # (Auto) Eos # (Auto) Baso # (Auto) Abs Immat Gran (auto) Absolute Neuts (auto) Absolute Nucleated RBC Nucleated RBC % (auto) D-Dimer Anion Gap Estim Creat Clear Calc Estimated GFR Random Glucose Calcium Troponin I High Sens 29.5 H* B-Natriuretic Peptide 591 H Coronavirus (PCR) NEGATIVE Influenza Type A (PCR) NEGATIVE Influenza Type B (PCR) NEGATIVE RSV RNA Qual (PCR) NEGATIVE 08/04/21 14:42 MCV MCH MCHC RDW Plt Count MPV Immature Gran % (Auto) Neut % (Auto) Lymph % (Auto) [place] % (Auto) Eos % (Auto) Baso % (Auto) Lymph # (Auto) [place] # (Auto) Eos # (Auto) Baso # (Auto) Abs Immat Gran (auto) Absolute Neuts (auto) Absolute Nucleated RBC Nucleated RBC % (auto) D-Dimer Anion Gap Estim Creat Clear Calc Estimated GFR Random Glucose Calcium Troponin I High Sens 21.5 H* B-Natriuretic Peptide Coronavirus (PCR) Influenza Type A (PCR) Influenza Type B (PCR) RSV RNA Qual (PCR) Imaging Radiologist's Impressions: Impressions Chest X-Ray 08/04/21 12:05 IMPRESSION: Chronic changes in the lungs suggestive of interstitial lung disease or fibrosis. New bilateral perihilar opacities. Differential would include pulmonary edema and acute pneumonia. Assessment and Plan (1) Congestive heart failure (CHF): Qualifiers: Heart failure type: biventricular Qualified Code(s): I50.82 - Biventricular heart failure Status: Acute (2) Chronic pain syndrome: Status: Acute (3) Chest pain: Status: Acute 61-year-old female with history of ild, smoker, recent COVID pneumonia, came to the hospital because of chest pain or shortness of breath admission was called because of chest pain and right-sided heart failure workup. 1. Chest pain:? Question atypical has elevated troponin which are flat, and EKG changes. After receiving aspirin, nitrate, Lasix her chest pain and shortness of breath Improving CTa-seems negative for pulmonary embolism but has question of diffuse interstitial lung disease versus postviral changes. Cardiology evaluation in morning Continue aspirin, statin, lipid panel in morning. If patient continued to have chest pain we will repeat troponin and EKG. 2. Probable CHF question right-sided heart failure Will add IV Lasix Echo 3. [place] D : Continue supportive care as above Oxygen p.r.n. If does not improve may need pulmonary evaluation. ? unclear why on albuterol 4. chronic opioid use: She says that she has already taper down to morphine small dose 15 mg and gabapentin for pain, continue that for now. DVT prophylaxis with subQ Lovenox. Quality Stroke Does the patient have a stroke diagnosis?: No VTE Prior VTE?: No VTE Risk Level:: Medical - moderate - high VTE Device Contraindication: N/A - Device Ordered VTE Drug Contraindication: N/A - Med Ordered
--- NOTE | 2021-08-04 17:02 | PHA.MEDREC ---
Pharmacy Consult ? Medication Reconciliation Pharmacy has completed the medication reconciliation. spoke with patient in ED.
[2021-08-04] MEDS: Enoxaparin Sodium 40 MG/0.4 ML SYRINGE SUBCUT (17:54)
[2021-08-04] MEDS: Atorvastatin Calcium 40 MG TABLET PO (17:54)
--- NOTE | 2021-08-04 19:11 | MHC.CM.PN ---
CM met with admitted patient with bed assignment pending. IMM reviewed and signed per protocol. No HCP on file. Education provided and completed per protocol. HCP/son Reed Ackerman ([phone]). Copies given. Uploaded into [employer] and [employer]. Pt has no DME and no services. Pt is disabled. Requesting [facility] at discharge for chronic disease/medication management. D/C plan is home with [facility]. [facility] referral placed to follow. Transportation home to be arranged by pt. CM to follow for d/c needs.
[2021-08-04] MEDS: Gabapentin 400 MG CAPSULE 800 MG PO (19:24)
[2021-08-04] MEDS: Morphine Sulfate Immed Release 15 MG TABLET PO (20:45)
--- NOTE | 2021-08-04 21:34 | PC.NURSE ---
Report called to inloyda RN, pt sent upstairs via [facility] in stable condition w/ all belongings, attached to residential monitor, 2L O2 NC
[2021-08-04] MEDS: 0.9 % Sodium Chloride Flush 3 ML SYRINGE IVFLUSH (22:14)
[2021-08-05] VITALS (10 sets, daily range): BP systolic 87–110; BP diastolic 59–70; PULSE 96–118; RESP 16–20; TEMP 36.3–37.1; O2SAT 79–94
[2021-08-05] MEDS: Albuterol/Iprat 2.5/0.5MG 3 ML AMPUL.NEB INHALE (03:52)
[2021-08-05] MEDS: ondansetron HCL 4 MG/2 ML VIAL IVPUSH (04:21)
[2021-08-05] MEDS: 0.9 % Sodium Chloride Flush 3 ML SYRINGE IVFLUSH ×3 (07:08→23:15)
[2021-08-05 07:17] LABS: Hematocrit 31.8 % (37-47); Hemoglobin 10.6 g/dl (12.0-16.0); Mean Corpuscular HGB Conc 33.3 g/dl (31.0-35.0); Mean Corpuscular Hemoglobin 28.7 pg (27.0-33.0); Mean Corpuscular Volume 86.2 fL (80-98); Mean Platelet Volume 11.6 fL (9.4-12.3); Platelet Count 332 X10*3/uL (160-400); Red Blood Count 3.69 X10*6/uL (4.20-5.50); Red Cell Distribution Width 15.7 % (11.0-16.0)
[2021-08-05 07:45] LABS: Anion Gap 11 (12-20); Blood Urea Nitrogen 6 mg/dL (9-16); Calcium 8.4 mg/dL (8.4-10.2); Carbon Dioxide 29 mmol/L (22-29); Chloride 98 mmol/L (96-108); Cholesterol 114 mg/dL; Creatinine Clr Calc Pharmacy 85.7; Estimated Glomerular Filt Rate > 60; Glucose Random 103 mg/dL (60-115); HDL Cholesterol 27 mg/dL; LDL Cholesterol Calculated 74 mg/dl; Potassium 3.4 mmol/L (3.3-5.1); Sodium 135 mmol/L (135-145); Triglycerides 67 mg/dL
[2021-08-05] MEDS: Gabapentin 400 MG CAPSULE 800 MG PO ×3 (08:47→21:34)
[2021-08-05] MEDS: Aspirin Enteric Coated 81 MG TABLET.DR PO (08:47)
[2021-08-05] MEDS: Furosemide 20 MG/2 ML VIAL IVPUSH (08:48)
--- NOTE | 2021-08-05 09:43 | PM.CNPUL ---
History of Present Illness History of Present Illness Consult date: 08/05/21 Chief complaint: CHF/Chest pain Narrative: This is a pulmonary inpatient consultation. The patient is a 61-year-old woman with a known history of chronic pain and opiate use who apparently was in her usual state health until back in February when she was started develop worsening shortness of breath. She went to the ER she had a CT scan of the chest demonstrating evidence of ground-glass opacities and reticular changes as well as lymphadenopathy and hypoxemia. Her COVID test was negative but it was high suspicion that she had COVID. The patient did not want to be admitted to the hospital. Subsequently she left. She did struggle with wheezing shortness of breath. However, her daughter was getting and she did want to miss the waiting or mass up the wedding that she continued having significant symptoms. Her daughter finally got in her symptoms were so severe she decided to come back to the ED. She had a repeat CT scan demonstrating interval worsening of the interstitial lung disease with significant alveolitis worsening lymphadenopathy in addition to cystic like disease. No evidence of any pulmonary emboli. On further questioning she did get the 1st COVID shot a week before she got sick in February and then due to all her issues with being short of breath and symptomatic as well her prior arrangements captopril getting the 2nd dose. She was tested again the hospital she was negative. At this point I will test her antibiotics but the may be affected by the fact that she did receive 1 vaccine. The patient denies any exposure to any farm animals or any birds. Denies any mold in her home. She lives in a [facility]. She does not spend any time outside in the [facility]. She does not use a hot tub. Therefore the likelihood of hypersensitivity pneumonitis is last. We did talk about different options as far as trying to figure out what is going on with her interstitial lung disease. We talked about considering biopsies including both lung biopsy versus bronchoscopy with transbronchial biopsies. We also talked about empiric treatment for this. Currently she is being treated for heart failure with diuretics. She is being diuresed. She will continue this diuresis at least for the next 24 hours and will repeat a chest x-ray and also get an echocardiogram. Will wait for the results to pulmonary come back and decide about either biopsy versus empiric treatment with steroids by tomorrow. Review of Systems Constitutional: Constitutional: Denies night sweats ENT: Denies change in voice, Denies lip swelling, Denies mouth pain, Reports nasal congestion, Reports nasal discharge and Denies tongue swelling Cardiovascular: Cardiovascular: Denies chest pain, Reports dyspnea and Reports dyspnea on exertion Respiratory: Respiratory: Reports cough, Reports dyspnea and Reports dyspnea on exertion Gastrointestinal: Gastrointestinal: Denies abdominal pain Musculoskeletal: Musculoskeletal: Denies no additional musculoskeletal complaints Neurologic: Denies Neuro-related abnormal movements Psychiatric: Psychiatric: Denies no additional psychiatric complaints Hematologic/Lymphatic: Hematologic/Lymphatic: Denies easy bleeding and Denies lymphadenopathy Allergic/Immunologic: Allergic/Immunologic: Denies lip swelling and Denies tongue swelling PMFSH Past Medical History Medical History (Updated 08/05/21 @ 09:48 by Glynn Luis MD) ADHD Anxiety Chronic idiopathic constipation Chronic pain syndrome Complex regional pain syndrome of right lower extremity Constipation Depression IBS (irritable bowel syndrome) [employer] (current) use of opiate analgesic Lymphadenopathy, mediastinal 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, right foot Peripheral neuropathy Respiratory failure Scoliosis Family History Family History Father History of hemochromatosis Mother History of high blood pressure Surgical History Surgical History History of colonoscopy Social History Social History Household Members: None Housing: Condominium Do you presently have visiting nurse or other home services: No Alcohol intake: never Patient Tobacco Use Status: Current everyday Tobacco user Tobacco use type: Cigarette Cigarettes Per Day: 5 Years Smoked: 30 Second Hand Smoke Exposure: No Advance Directives Date on File: 08/05/21 service: No Current occupational status: disabled Meds Allergies Allergy/AdvReac Type Severity Reaction Status Date / Time No Known Allergies Allergy Verified 07/22/21 15:58 Active Medications: Current Medications Generic Name Dose Route Start Last Admin Trade Name Freq PRN Reason Stop Dose Admin Albuterol/Ipratropium 3 ml 08/04/21 16:58 08/05/21 03:52 Albuterol/Iprat 2.5/0.5mg 3 Ml Ampul.Neb INHALE 3 ml Q4H PRN Administration Shortness of Breath Aspirin 81 mg 08/05/21 09:00 08/05/21 08:47 Aspirin Enteric Coated 81 Mg Tablet. PO 81 mg DAILY DANGELO Administration Enoxaparin Sodium 40 mg 08/04/21 18:00 08/04/21 17:54 Enoxaparin Sodium 40 Mg/0.4 Ml Syringe SUBCUT 40 mg Q24H DANGELO Administration Furosemide 20 mg 08/04/21 21:00 08/05/21 08:48 Furosemide 20 Mg/2 Ml Vial IVPUSH 20 mg BID DANGELO Administration Protocol Gabapentin 800 mg 08/04/21 21:00 08/05/21 08:47 Gabapentin 400 Mg Capsule PO 800 mg TID DANGELO Administration Morphine Sulfate 15 mg 08/04/21 19:58 08/04/21 20:45 Morphine Sulfate Immed Release 15 Mg Tablet PO 15 mg Q6H PRN Administration Pain (Scale Score 4-6) Nitroglycerin 0.4 mg 08/04/21 12:20 08/04/21 12:53 Nitroglycerin 0.4 Mg Tab.Subl SUBLINGUAL 0.4 mg Q5MX3 PRN Administration Chest Pain Ondansetron HCl 4 mg 08/05/21 04:14 08/05/21 04:21 Ondansetron Hcl 4 Mg/2 Ml Vial IVPUSH 4 mg Q8H PRN Administration Nausea and Vomiting Pharmacy Consult 1 each 08/04/21 15:59 Consult Rx Perform Med Rec MISCELLANE ONCE PRN Consult order Sodium Chloride 3 ml 08/05/21 00:00 08/05/21 07:08 0.9 % Sodium Chloride Flush 3 Ml Syringe IVFLUSH 3 ml QSHIFT DANGELO Administration Home Medications Medication Instructions Recorded Confirmed Last Taken Type alprazolam 2 mg tablet 0.5 mg PO BEDTIME 09/24/20 08/04/21 08/03/21 History gabapentin 400 mg capsule 800 mg PO TID cap 09/24/20 08/04/21 08/04/21 History dextroamphetamine-amphetamine 30 1 tab PO DAILY PRN 08/04/21 08/04/21 Unknown History mg tablet ibuprofen 200 mg tablet 200 mg PO Q6H PRN 08/04/21 08/04/21 Unknown History morphine 15 mg immediate release 15 mg PO Q6H PRN 08/04/21 08/04/21 08/04/21 History tablet Physical Exam Vital Signs: Vital Signs: Last Vital Signs Temp 98.1 F 08/05/21 07:47 Pulse 96 08/05/21 07:47 Resp 17 08/05/21 07:47 BP 110/66 08/05/21 07:47 Pulse Ox 91 L 08/05/21 07:47 Body Mass Index 24.7 Const: General: alert Neck: Neck: Yes normal visual inspection, Yes full ROM and Yes no lymphadenopathy Chest: Chest palpation & inspection: normal inspection of the chest Resp: Auscultation: crackles, rales, rhonchi and diminished lung sounds Cardio: Rate: regular rate Rhythm: regular rhythm Heart sounds: S1 normal heart sound present and S2 normal heart sound present GI: Palpation (GI): Soft to palpation and nontender Auscultation: normal bowel sounds Skin: General skin exam: rashes and/or lesions noted Results Laboratory Findings CBC and BMP: 08/05/21 06:38 08/05/21 06:38 ABG, PT/INR, D-dimer: PT/INR, D-dimer D-Dimer 698 NG/ML 08/04/21 12:43 Abnormal lab findings: Abnormal Labs 08/04/21 08/04/21 08/04/21 12:43 12:43 12:43 RBC 3.70 L Hgb 10.7 L Hct 32.5 L Anion Gap BUN 5 L Troponin I High Sens 29.5 H* B-Natriuretic Peptide 08/04/21 08/04/21 08/05/21 12:43 14:42 06:38 RBC 3.69 L Hgb 10.6 L Hct 31.8 L Anion Gap BUN Troponin I High Sens 21.5 H* B-Natriuretic Peptide 591 H 08/05/21 06:38 RBC Hgb Hct Anion Gap 11 L BUN 6 L Troponin I High Sens B-Natriuretic Peptide Diagnostic Findings CT scan - chest: report reviewed and image reviewed Assessment and Plan (1) Respiratory failure: Qualifiers: Chronicity: acute on chronic Respiratory failure complication: hypoxia Qualified Code(s): J96.21 - Acute and chronic respiratory failure with hypoxia Status: Acute (2) Pneumonitis: Status: Acute (3) Lymphadenopathy, mediastinal: Status: Acute Continue oxygen supplementation Will request blood work to assess for inflammatory conditions Continue diuresis Requesting echocardiogram Repeating chest x-ray tomorrow Consider biopsy versus empiric treatment with steroids if no better by tomorrow Procedures Date of Service Date of Service: 08/05/21
--- NOTE | 2021-08-05 10:30 | CA_ITS ---
Transthoracic Echocardiogram Patient (Last, First, Middle): Amna Mcfadden E Gender: Female Date of : 1960 Age: 61 Procedure Date: 08/05/2021 Procedure Type: Transthoracic Echocardiogram Location: S3E Height: 157.48 cm Weight: 61.24 kg BSA: 1.62 m2 Heart Rate: bpm BP: 101 / 69 mmHg Porter Sample Case: Referring MD: Lucrecia Gann MD Symptoms: CHEST PAIN/CHF Study Quality: Fair ECG Rhythm: Sinus Conclusions: - The left ventricular systolic function is normal. The visually estimated ejection fraction is between 60-65%. - Moderately increased right ventricular cavity size. There is normal right ventricular systolic function. Distal part of right ventricular free wall appears hypokinetic. - No obvious valvular pathology seen on this study. - The pulmonary artery systolic pressure is normal. Findings Left Ventricle Normal left ventricular cavity size. There is normal left ventricular wall thickness. The left ventricular systolic function is normal. The visually estimated ejection fraction is between 60-65%. There is no evidence of regional wall motion abnormalities. There is evidence of septal flattening, but unable to say if it is from RV pressure or volume overload. Right Ventricle Moderately increased right ventricular cavity size. There is normal right ventricular systolic function. TAPSE 2.34cm. Distal part of right ventricular free wall appears hypokinetic. Atria Both atria are normal in size. Aortic Valve There is a normal trileaflet aortic valve. There is no aortic valve stenosis. There is no aortic valve regurgitation. Mitral Valve The mitral valve appears normal. There is trace mitral valve regurgitation. There is no mitral valve stenosis. Pulmonic Valve The pulmonic valve was not well visualized. There is trace pulmonic valve regurgitation. Tricuspid Valve Normal tricuspid valve structure. There is trace tricuspid valve regurgitation. The pulmonary artery systolic pressure is normal. Great Vessels The aortic annulus, sinuses of valsalva, and asc aorta are normal in size. Venous The inferior vena cava is normal in size and collapses greater than 50% with inspiration. Pericardium/Pleural There is a trivial pericardial effusion. Prior Study Comparison No prior study available for comparison. Recommendations, Care & Conclusions No obvious valvular pathology seen on this study. Measurements 2D Linear Measurements RVIDd: 3.74 RVIDd Index: 2.31 IVSd: 0.97 0.6-0.9/0.6-1.0 cm LVIDd: 3.41 3.9-5.3/4.2-5.9 cm LVIDd Index: 2.10 2.4-3.2/2.2-3.1 cm/m2 LVIDs: 2.29 2.0-3.6 cm LVPWd: 0.95 0.7-1.1 cm Ao Root: 3.10 2.1-3.5 cm LA Diam: 2.80 2.7-3.8/3.0-4.0 cm LAIDs Index: 1.73 1.5-2.3 cm/m2 LV Mass: 116.06 67-162/88-224 g LV Mass Index: 71.64 43-95/49-115 g/m2 LVOT Diam: 2.10 3.0+(-)1.3 cm Mitral Valve MV Pk E: 0.54 MV PK A: 0.81 MV Decel Time: 80.00 E/A: 0.70 E'Lateral: 11.70 E'Medial: 5.00 E/E' Med: 10.80 E/E' Lat: 4.60 PHT: 23.00 MVA PHT: 9.57 Decel [place]: 6.72 Aortic Valve AoV Pk Silviano: 1.36 AoV Mn Silviano: 0.89 AoV VTI: 0.26 AoV Pk Grad: 7.00 Aov Mn Grad: 4.00 MIAN Cont.VTI: 2.48 LVOT LVOT Pk Silviano: 0.91 LVOT Mn Silviano: 0.55 LVOT VTI: 0.19 LVOT Pk Grad: 3.00 LVOT Mn Grad: 1.00 LVOT Diam: 2.10 LVOT Area: 3.46 Diastolic Function MV Pk E: 0.54 MV Pk A: 0.81 E/A: 0.70 E'Medial: 5.00 E/E' Med: 10.80 E' Laterial: 11.70 E/E' Lat: 4.60 Right Ventricle TAPSE (mm): 23.00 TVS' Silviano: 15.00 Tricuspid Valve TR Pk Silviano: 2.37 TR Pk Grad: 22.00 RA Press: 3.00 RVSP: 25.00 Great Vessels Aorta Ao Root-2D: 3.10 2.0-3.7 cm Ao Asc: 3.10 2.1-3.4 cm Pulmonary Valve PV Pk Silviano: 0.80 Peak PV Grad: 3.00 Updated in Other Vendor System with Status of Final Bryan Barber MD electronically signed on 08/05/2021 4:56:52 PM with status of Final
[2021-08-05] MEDS: Morphine Sulfate Immed Release 15 MG TABLET PO ×3 (10:49→23:51)
[2021-08-05 11:03] LABS: Erythrocyte Sedimentation Rate 84 MM/HR (0-20)
--- NOTE | 2021-08-05 11:13 | PM.CNCAR ---
History of Present Illness History of Present Illness Date of Service: 08/05/21 Chief complaint: CHF/Chest pain Narrative: This is a cardiology consultation regarding elevated troponins as well as an abnormal EKG. Patient does not have any known coronary disease myocardial infarction and cardiac issues. Presenting complaints are mainly shortness of breath, cough and pleuritic-type chest pains. From the cardiac standpoint, there is no history of any coronary disease myocardial infarction or cardiomyopathy affecting other cardiac concerns at all. Because of the respiratory symptoms over the last few days, she has been admitted. Her EKG was thought to be abnormal and she also had elevated troponins prompting this consultation. Review of Systems Review of Systems: Yes all other systems are reviewed and are negative Cardiovascular: Cardiovascular: Reports as per HPI, Reports no additional cardiovascular complaints, Denies acrocyanosis, Denies cool extremities, Denies painful fingertips, Denies chest pain, Denies chest pain at rest, Denies diaphoresis, Denies syncope, Denies irregular heart rhythm, Denies claudication, Denies leg edema, Denies lightheadedness, Denies palpitations and Reports dyspnea Respiratory: Respiratory: Reports cough and Reports dyspnea Comments: pleuritic chest pain Neurologic: Denies syncope Endocrine: Endocrine: Denies palpitations [facility] Past Medical History Medical History (Updated 08/05/21 @ 11:17 by Bryan Barber MD) ADHD Anxiety Chronic idiopathic constipation Chronic pain syndrome Complex regional pain syndrome of right lower extremity Constipation Depression IBS (irritable bowel syndrome) shelter (current) use of opiate analgesic Lymphadenopathy, mediastinal 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 Surgical History Surgical History History of colonoscopy Social History Social History Household Members: None Housing: Condominium Do you presently have visiting nurse or other home services: No Alcohol intake: never Patient Tobacco Use Status: Current everyday Tobacco user Tobacco use type: Cigarette Cigarettes Per Day: 5 Years Smoked: 30 Second Hand Smoke Exposure: No Advance Directives Date on File: 08/05/21 service: No Current occupational status: disabled Meds Allergies Allergy/AdvReac Type Severity Reaction Status Date / Time No Known Allergies Allergy Verified 07/22/21 15:58 Active Medications: Current Medications Generic Name Dose Route Start Last Admin Trade Name Freq PRN Reason Stop Dose Admin Albuterol/Ipratropium 3 ml 08/04/21 16:58 08/05/21 03:52 Albuterol/Iprat 2.5/0.5mg 3 Ml Ampul.Neb INHALE 3 ml Q4H PRN Administration Shortness of Breath Aspirin 81 mg 08/05/21 09:00 08/05/21 08:47 Aspirin Enteric Coated 81 Mg Tablet. PO 81 mg DAILY DANGELO Administration Enoxaparin Sodium 40 mg 08/04/21 18:00 08/04/21 17:54 Enoxaparin Sodium 40 Mg/0.4 Ml Syringe SUBCUT 40 mg Q24H DANGELO Administration Furosemide 20 mg 08/06/21 09:00 Furosemide 20 Mg/2 Ml Vial IVPUSH DAILY [facility] Protocol Gabapentin 800 mg 08/04/21 21:00 08/05/21 08:47 Gabapentin 400 Mg Capsule PO 800 mg TID DANGELO Administration Morphine Sulfate 15 mg 08/04/21 19:58 08/05/21 10:49 Morphine Sulfate Immed Release 15 Mg Tablet PO 15 mg Q6H PRN Administration Pain (Scale Score 4-6) Nitroglycerin 0.4 mg 08/04/21 12:20 08/04/21 12:53 Nitroglycerin 0.4 Mg Tab.Subl SUBLINGUAL 0.4 mg Q5MX3 PRN Administration Chest Pain Ondansetron HCl 4 mg 08/05/21 04:14 08/05/21 04:21 Ondansetron Hcl 4 Mg/2 Ml Vial IVPUSH 4 mg Q8H PRN Administration Nausea and Vomiting Pharmacy Consult 1 each 08/04/21 15:59 Consult Rx Perform Med Rec MISCELLANE ONCE PRN Consult order Sodium Chloride 3 ml 08/05/21 00:00 08/05/21 07:08 0.9 % Sodium Chloride Flush 3 Ml Syringe IVFLUSH 3 ml QSHIFT DANGELO Administration Home Medications Medication Instructions Recorded Confirmed Last Taken Type alprazolam 2 mg tablet 0.5 mg PO BEDTIME 09/24/20 08/04/21 08/03/21 History gabapentin 400 mg capsule 800 mg PO TID cap 09/24/20 08/04/21 08/04/21 History dextroamphetamine-amphetamine 30 1 tab PO DAILY PRN 08/04/21 08/04/21 Unknown History mg tablet ibuprofen 200 mg tablet 200 mg PO Q6H PRN 08/04/21 08/04/21 Unknown History morphine 15 mg immediate release 15 mg PO Q6H PRN 08/04/21 08/04/21 08/04/21 History tablet Physical Exam Vital Signs: Vital Signs: Last Vital Signs Temp 98.1 F 08/05/21 07:47 Pulse 96 08/05/21 07:47 Resp 17 08/05/21 07:47 BP 110/66 08/05/21 07:47 Pulse Ox 91 L 08/05/21 07:47 Body Mass Index 24.7 Const: General: cooperative and no acute distress HENMT: Other: Unremarkable Neck: Neck: Yes normal visual inspection Chest: Chest palpation & inspection: normal inspection of the chest Resp: Auscultation: crackles and wheezes Cardio: Jugular venous distension: no JVD Palpation: normal PMI Heart sounds: S1 normal heart sound present, S2 normal heart sound present, no gallops, no murmurs and no rubs GI: Palpation (GI): Soft to palpation Back/Spine/Pelvis: Other: unremarkable Skin: General skin exam: no rashes or lesions noted Neuro: Cranial nerves: Yes Other cranial nerve findings present Extrem: General: Yes no clubbing, cyanosis or edema Psych: Mental Status: other Results Labs and Meds Result diagrams: 08/05/21 06:38 08/05/21 06:38 Lab results: Laboratory Results - last 24 hr 08/04/21 08/04/21 08/04/21 12:43 12:43 12:43 WBC 9.3 RBC 3.70 L Hgb 10.7 L Hct 32.5 L MCV 87.8 MCH 28.9 MCHC 32.9 RDW 15.8 Plt Count 350 D MPV 11.2 Immature Gran % (Auto) 0.2 Neut % (Auto) 71.0 Lymph % (Auto) 23.0 [place] % (Auto) 5.0 Eos % (Auto) 0.6 Baso % (Auto) 0.2 Lymph # (Auto) 2.1 [place] # (Auto) 0.5 Eos # (Auto) 0.1 Baso # (Auto) 0.0 Abs Immat Gran (auto) 0.02 Absolute Neuts (auto) 6.6 Absolute Nucleated RBC 0.000 Nucleated RBC % (auto) 0.0 ESR D-Dimer 698 Sodium 136 Potassium 3.5 Chloride 99 Carbon Dioxide 26 Anion Gap 15 BUN 5 L Creatinine 0.65 Estim Creat Clear Calc 80.4 Estimated GFR > 60 Random Glucose 98 Calcium 8.6 Troponin I High Sens B-Natriuretic Peptide Triglycerides Cholesterol LDL Cholesterol, Calc HDL Cholesterol Coronavirus (PCR) Influenza Type A (PCR) Influenza Type B (PCR) RSV RNA Qual (PCR) 08/04/21 08/04/21 08/04/21 12:43 12:43 12:43 WBC RBC Hgb Hct MCV MCH MCHC RDW Plt Count MPV Immature Gran % (Auto) Neut % (Auto) Lymph % (Auto) [place] % (Auto) Eos % (Auto) Baso % (Auto) Lymph # (Auto) [place] # (Auto) Eos # (Auto) Baso # (Auto) Abs Immat Gran (auto) Absolute Neuts (auto) Absolute Nucleated RBC Nucleated RBC % (auto) ESR D-Dimer Sodium Potassium Chloride Carbon Dioxide Anion Gap BUN Creatinine Estim Creat Clear Calc Estimated GFR Random Glucose Calcium Troponin I High Sens 29.5 H* B-Natriuretic Peptide 591 H Triglycerides Cholesterol LDL Cholesterol, Calc HDL Cholesterol Coronavirus (PCR) NEGATIVE Influenza Type A (PCR) NEGATIVE Influenza Type B (PCR) NEGATIVE RSV RNA Qual (PCR) NEGATIVE 08/04/21 08/05/21 08/05/21 14:42 06:38 06:38 WBC 9.0 RBC 3.69 L Hgb 10.6 L Hct 31.8 L MCV 86.2 MCH 28.7 MCHC 33.3 RDW 15.7 Plt Count 332 MPV 11.6 Immature Gran % (Auto) Neut % (Auto) Lymph % (Auto) [place] % (Auto) Eos % (Auto) Baso % (Auto) Lymph # (Auto) [place] # (Auto) Eos # (Auto) Baso # (Auto) Abs Immat Gran (auto) Absolute Neuts (auto) Absolute Nucleated RBC 0.000 Nucleated RBC % (auto) 0.0 ESR D-Dimer Sodium 135 Potassium 3.4 Chloride 98 Carbon Dioxide 29 Anion Gap 11 L BUN 6 L Creatinine 0.61 Estim Creat Clear Calc 85.7 Estimated GFR > 60 Random Glucose 103 Calcium 8.4 Troponin I High Sens 21.5 H* B-Natriuretic Peptide Triglycerides 67 Cholesterol 114 LDL Cholesterol, Calc 74 HDL Cholesterol 27 Coronavirus (PCR) Influenza Type A (PCR) Influenza Type B (PCR) RSV RNA Qual (PCR) 08/05/21 Unknown WBC RBC Hgb Hct MCV MCH MCHC RDW Plt Count MPV Immature Gran % (Auto) Neut % (Auto) Lymph % (Auto) [place] % (Auto) Eos % (Auto) Baso % (Auto) Lymph # (Auto) [place] # (Auto) Eos # (Auto) Baso # (Auto) Abs Immat Gran (auto) Absolute Neuts (auto) Absolute Nucleated RBC Nucleated RBC % (auto) ESR 84 H D-Dimer Sodium Potassium Chloride Carbon Dioxide Anion Gap BUN Creatinine Estim Creat Clear Calc Estimated GFR Random Glucose Calcium Troponin I High Sens B-Natriuretic Peptide Triglycerides Cholesterol LDL Cholesterol, Calc HDL Cholesterol Coronavirus (PCR) Influenza Type A (PCR) Influenza Type B (PCR) RSV RNA Qual (PCR) ECG Interpretation: EKG is reviewed. Sinus rhythm at 101/Min. Anterior T inversions noted which is most likely from right ventricular strain pattern. There are also inferior T inversions. Imaging Radiologist's impression: Impressions Chest X-Ray 08/04/21 12:05 IMPRESSION: Chronic changes in the lungs suggestive of interstitial lung disease or fibrosis. New bilateral perihilar opacities. Differential would include pulmonary edema and acute pneumonia. Chest CTA 08/04/21 15:28 IMPRESSION: No evidence of pulmonary embolism. Worsening diffuse lung disease with increased interstitial markings, groundglass attenuation and cystic changes. This is a nonspecific appearance. Differential would include chronic interstitial lung disease with acute alveolitis, atypical viral pneumonia, sarcoidosis, alveolar proteinosis and new pulmonary edema or pulmonary hemorrhage superimposed on chronic lung disease. Enlarged mediastinal and hilar lymph nodes increased from previous exam. VTE: negative Assessment and Plan (1) Respiratory failure: Qualifiers: Chronicity: acute on chronic Respiratory failure complication: hypoxia Qualified Code(s): J96.21 - Acute and chronic respiratory failure with hypoxia Status: Acute (2) Elevated troponin I level: Status: Acute EKG changes are most likely from right ventricular strain pattern. Less likely from LAD territory ischemia. Slightly elevated high sensitive troponins are again from right ventricular dysfunction related to pulmonary issues. Do not believe this an acute coronary syndrome presentation. We can start with an echocardiogram for ventricular function as well as pulmonary hypertension assessment. Will follow up with you. Procedures Date of Service Date of Service: 08/05/21
[2021-08-05 12:07] LABS: HIV AB/AG Nonreactive (Nonreactive); HIV Num 1 0.07 S/CO (0.00-0.99)
--- NOTE | 2021-08-05 14:20 | P.PNIM_ITS ---
Subjective Subjective Date of Service: 08/05/21 Interval History: CHF, chest pain Review of Systems Shortness of breath is slightly better Has cough no phlegm. chest pain seems improving Denies any new complaint of abdominal pain or fever or chills or nausea or vomiting Denies any cough Denies any weakness or numbness. Physical Exam Vital Signs: Vital Signs: Last Vital Signs Temp 98.2 F 08/05/21 11:44 Pulse 96 08/05/21 11:44 Resp 18 08/05/21 11:44 BP 101/69 08/05/21 11:44 Pulse Ox 93 08/05/21 11:44 Body Mass Index 24.7 Physical exam: Cvs: [id number], [id number] , no murmur res: Fair air entry, has few scattered rhonchi and also some crackles abd: no rebound or guarding ,nt, bs present. ext pulses present , no cyanosis neuro: axo3 , nonfocal. Objective Data Active Medications Albuterol/Ipratropium (Albuterol/Iprat 2.5/0.5mg 3 Ml Ampul.Neb) 3 ml INHALE Q4H PRN PRN Reason: Shortness of Breath Last Admin: 08/05/21 03:52 Dose: 3 ml Documented by: KEAGAN Aspirin (Aspirin Enteric Coated 81 Mg Tablet.) 81 mg PO DAILY [facility] Last Admin: 08/05/21 08:47 Dose: 81 mg Documented by: TYRONE Enoxaparin Sodium (Enoxaparin Sodium 40 Mg/0.4 Ml Syringe) 40 mg SUBCUT Q24H [facility] Last Admin: 08/04/21 17:54 Dose: 40 mg Documented by: SAKINA Furosemide (Furosemide 20 Mg/2 Ml Vial) 20 mg IVPUSH DAILY [facility]; Protocol Gabapentin (Gabapentin 400 Mg Capsule) 800 mg PO TID [facility] Last Admin: 08/05/21 08:47 Dose: 800 mg Documented by: TYRONE Morphine Sulfate (Morphine Sulfate Immed Release 15 Mg Tablet) 15 mg PO Q6H PRN PRN Reason: Pain (Scale Score 4-6) Last Admin: 08/05/21 10:49 Dose: 15 mg Documented by: TYRONE Nitroglycerin (Nitroglycerin 0.4 Mg Tab.Subl) 0.4 mg SUBLINGUAL Q5MX3 PRN PRN Reason: Chest Pain Last Admin: 08/04/21 12:53 Dose: 0.4 mg Documented by: ANALISA Ondansetron HCl (Ondansetron Hcl 4 Mg/2 Ml Vial) 4 mg IVPUSH Q8H PRN PRN Reason: Nausea and Vomiting Last Admin: 08/05/21 04:21 Dose: 4 mg Documented by: CAYDEN Pharmacy Consult (Consult Rx Perform Med Rec) 1 each MISCELLANE ONCE PRN PRN Reason: Consult order Sodium Chloride (0.9 % Sodium Chloride Flush 3 Ml Syringe) 3 ml IVFLUSH QSHIFT [facility] Last Admin: 08/05/21 07:08 Dose: 3 ml Documented by: TYRONE Labs CBC & Chem 7: 08/05/21 06:38 08/05/21 06:38 Labs: Laboratory Results - last 24 hr 08/04/21 08/05/21 08/05/21 14:42 06:38 06:38 MCV 86.2 MCH 28.7 MCHC 33.3 RDW 15.7 Plt Count 332 MPV 11.6 Absolute Nucleated RBC 0.000 Nucleated RBC % (auto) 0.0 ESR Anion Gap 11 L Estim Creat Clear Calc 85.7 Estimated GFR > 60 Random Glucose 103 Calcium 8.4 Troponin I High Sens 21.5 H* Triglycerides 67 Cholesterol 114 LDL Cholesterol, Calc 74 HDL Cholesterol 27 HIV 1&2 Ab/P24 Ag 4thGn 08/05/21 08/05/21 10:38 Unknown MCV MCH MCHC RDW Plt Count MPV Absolute Nucleated RBC Nucleated RBC % (auto) ESR 84 H Anion Gap Estim Creat Clear Calc Estimated GFR Random Glucose Calcium Troponin I High Sens Triglycerides Cholesterol LDL Cholesterol, Calc HDL Cholesterol HIV 1&2 Ab/P24 Ag 4thGn Nonreactive Assessment and Plan (1) Respiratory failure: Status: Acute (2) Chronic interstitial lung disease: Status: Acute (3) Chest pain: Status: Acute Assessment and Plan: 61-year-old female with history of ild, smoker, recent COVID pneumonia, came to the hospital because of chest pain or shortness of breath admission was called because of chest pain and right-sided heart failure workup. 1. Chest pain: Improving, abnormal EKG, troponin flat CTa-seems negative for pulmonary embolism but has question of diffuse interstitial lung disease versus postviral changes. Cardiology evaluation -thought thought to be atypical cardiac pain, echo added Continue aspirin, statin, lipid panel LDL is around 70. 2. Probable CHF question right-sided heart failure Will adjust Lasix to IV daily Echo 3. Acute hypoxemic respiratory failure secondary to CHF versus [place] D :? Continue supportive care as above Oxygen p.r.n. taper If does not improve may need pulmonary evaluation. ? unclear why on albuterol Pulmonary evaluation- question for workup and may need steroids. 4.? chronic opioid use: She says that she has already taper down to morphine small dose 15 mg and gabapentin for pain, continue that for now. DVT prophylaxis with subQ Lovenox. Quality Stroke Does the patient have a stroke diagnosis?: No VTE Prior VTE?: No VTE Risk Level:: Medical - moderate - high VTE Device Contraindication: N/A - Device Ordered VTE Drug Contraindication: N/A - Med Ordered
[2021-08-05] MEDS: Enoxaparin Sodium 40 MG/0.4 ML SYRINGE SUBCUT (19:30)
[2021-08-05] MEDS: methylPREDNISolone Sod Succ 125 MG/2 ML VIAL IVPUSH (22:45)
[2021-08-05] MEDS: Acetaminophen 325 MG TABLET 650 MG PO (22:45)
[2021-08-06 03:57] VITALS: BP 93/68; PULSE 99; RESP 16; TEMP 36.2; O2SAT 97
[2021-08-06 04:18] LABS: SARS COV2 IgG Negative (Negative)
[2021-08-06] MEDS: Morphine Sulfate Immed Release 15 MG TABLET PO ×3 (07:13→20:04)
[2021-08-06] MEDS: 0.9 % Sodium Chloride Flush 3 ML SYRINGE IVFLUSH ×3 (07:16→20:10)
[2021-08-06 08:00] VITALS: BP 85/65; PULSE 84; RESP 15; TEMP 35.7; O2SAT 92
[2021-08-06 08:30] VITALS: BP 92/52
[2021-08-06] MEDS: Gabapentin 400 MG CAPSULE 800 MG PO ×3 (08:50→19:53)
[2021-08-06] MEDS: Aspirin Enteric Coated 81 MG TABLET.DR PO (08:50)
[2021-08-06] MEDS: Omeprazole 20 MG CAPSULE.DR PO ×2 (08:51→17:08)
[2021-08-06] MEDS: methylPREDNISolone Sod Succ 125 MG/2 ML VIAL 60 MG IVPUSH ×2 (08:51→17:08)
--- NOTE | 2021-08-06 09:37 | PM.PNPUL ---
Subjective Subjective Date of Service: 08/06/21 Interval history: The patient was seen and examined. Her oxygen requirements had increased even after the diuretics. She did receive Solu-Medrol last night including Solu-Medrol this morning. Her blood work demonstrated a sedimentation rate of 84. The rest of the blood work still pending. We had spoken about biopsy bill this point will treat her empirically hoping to improve her symptoms. If she the patient does not improve then a biopsy will be warranted. If the patient does improved and will have to continue treating her empirically with steroids and then consider bronchoscopy or biopsy as an outpatient. Objective Data Labs CBC & Chem 7: 08/05/21 06:38 08/05/21 06:38 Labs: Laboratory Results - last 24 hr 08/05/21 08/05/21 08/05/21 10:38 Unknown Unknown ESR 84 H HIV 1&2 Ab/P24 Ag 4thGn Nonreactive SARS-CoV-2 IgG Ab Negative Microbiology Microbiology Results: Microbiology 08/04/21 14:42 Blood - Venous Blood Culture - Preliminary No growth after 24 hours. 08/04/21 12:43 Blood - Venous Blood Culture - Preliminary No growth after 24 hours. Review of Systems Constitutional: Denies night sweats Denies change in voice, Denies lip swelling, Denies mouth pain, Reports nasal congestion, Reports nasal discharge and Denies tongue swelling Cardiovascular: Denies chest pain, Reports dyspnea and Reports dyspnea on exertion Respiratory: Reports cough, Reports dyspnea and Reports dyspnea on exertion Gastrointestinal: Denies abdominal pain Musculoskeletal: Denies no additional musculoskeletal complaints Denies Neuro-related abnormal movements Psychiatric: Denies no additional psychiatric complaints Hematologic/Lymphatic: Denies easy bleeding and Denies lymphadenopathy Allergic/Immunologic: Denies lip swelling and Denies tongue swelling Physical Exam Vital Signs: Vital Signs: Last Vital Signs Temp 96.3 F L 08/06/21 08:00 Pulse 84 08/06/21 08:00 Resp 15 08/06/21 08:00 BP 85/65 L 08/06/21 08:00 Pulse Ox 92 08/06/21 08:00 Body Mass Index 24.7 Const: General: alert Neck: Neck: Yes normal visual inspection, Yes full ROM and Yes no lymphadenopathy Chest: Chest palpation & inspection: normal inspection of the chest Resp: Auscultation: crackles, rales and diminished lung sounds Cardio: Rate: regular rate Rhythm: regular rhythm Heart sounds: S1 normal heart sound present and S2 normal heart sound present GI: Palpation (GI): Soft to palpation and nontender Auscultation: normal bowel sounds Skin: General skin exam: rashes and/or lesions noted Procedures Date of Service Date of Service: 08/06/21 Assessment and Plan Assessment and plan (1) Chronic interstitial lung disease: Status: Acute (2) Pneumonitis: Status: Acute (3) Respiratory failure: Status: Acute Assessment and Plan: Awaiting blood work results assessing for inflammatory conditions that could explain her interstitial lung disease. Continue Solu-Medrol Consider lung biopsy or bronchoscopy with biopsy if she is on improving Will continue to follow closely Time Spent With Patient Time: Total time spent is greater than 50% in coordination of care (as documented) at patient's floor/unit and/or counseling patient: Time with patient: 25 - 35 minutes Progress Note: Quality Stroke Does the patient have a stroke diagnosis?: No
--- NOTE | 2021-08-06 10:36 | P.PNCA_ITS ---
Subjective Subjective Date of Service: 08/06/21 Interval history: Feels better. Cough is improved. Review of Systems Review of Systems Yes all other systems are reviewed and are negative Cardiovascular: Reports as per HPI, Reports no additional cardiovascular complaints, Denies acrocyanosis, Denies cool extremities, Denies painful fingertips, Denies chest pain, Denies chest pain at rest, Denies diaphoresis, Denies syncope, Denies irregular heart rhythm, Denies claudication, Denies leg edema, Denies lightheadedness, Denies palpitations and Reports dyspnea Respiratory: Reports cough and Reports dyspnea Denies syncope Endocrine: Denies palpitations Physical Exam Vital Signs: Last Vital Signs Temp 96.3 F L 08/06/21 08:00 Pulse 84 08/06/21 08:00 Resp 15 08/06/21 08:00 BP 92/52 L 08/06/21 08:30 Pulse Ox 92 08/06/21 08:00 Body Mass Index 24.7 Const General: cooperative and no acute distress HENMT Other: Unremarkable Neck Neck: Yes normal visual inspection Chest Chest palpation & inspection: normal inspection of the chest Resp Auscultation: crackles and wheezes Cardio Jugular venous distension: no JVD Palpation: normal PMI Heart sounds: S1 normal heart sound present, S2 normal heart sound present, no gallops, no murmurs and no rubs GI Palpation (GI): Soft to palpation Back/Spine/Pelvis Other: unremarkable Skin General skin exam: no rashes or lesions noted Neuro Cranial nerves: Yes Other cranial nerve findings present Extrem General: Yes no clubbing, cyanosis or edema Psych Mental Status: other Results Labs and Meds Result diagrams: 08/05/21 06:38 08/05/21 06:38 Lab results: Laboratory Results - last 24 hr 08/05/21 08/05/21 08/05/21 10:38 Unknown Unknown ESR 84 H HIV 1&2 Ab/P24 Ag 4thGn Nonreactive SARS-CoV-2 IgG Ab Negative Imaging Radiologist's impression: Impressions Chest X-Ray 08/06/21 07:00 IMPRESSION: Diffuse bilateral patchy opacities show similar distribution with mild interval increase. Given the previous CT findings, these findings suggest an acute infectious/inflammatory overlying chronic interstitial disease. Progress Note: A&P Assessment and plan (1) Respiratory failure: Status: Acute (2) Elevated troponin I level: Status: Acute (3) Right ventricular enlargement: Status: Acute Assessment and Plan: EKG changes are most likely from right ventricular strain pattern. Less likely from LAD territory ischemia. Slightly elevated high sensitive troponins are again from right ventricular dysfunction related to pulmonary issues. Do not believe this an acute coronary syndrome presentation. Echocardiogram with preserved LVEF at 60-65% but right ventricle size is moderately increased. No evidence of pulmonary hypertension, but under-estimation is possible. Right ventricular enlargement is secondary to pulmonary issues. At this time, recommendation is to treat the pulmonary concerns as you would otherwise do. At some point in few months possibly repeat echocardiogram to reassess right ventricle. Fall Risk Details Current Medications: Current Medications Generic Name Dose Route Start Last Admin Trade Name Freq PRN Reason Stop Dose Admin Acetaminophen 650 mg 08/05/21 22:05 08/05/21 22:45 Acetaminophen 325 Mg Tablet PO 650 mg Q6H PRN Administration Pain, Severe (Pain Scale 7-10) Albuterol/Ipratropium 3 ml 08/04/21 16:58 08/05/21 03:52 Albuterol/Iprat 2.5/0.5mg 3 Ml Ampul.Neb INHALE 3 ml Q4H PRN Administration Shortness of Breath Aspirin 81 mg 08/05/21 09:00 08/06/21 08:50 Aspirin Enteric Coated 81 Mg Tablet. PO 81 mg DAILY DANGELO Administration Enoxaparin Sodium 40 mg 08/04/21 18:00 08/05/21 19:30 Enoxaparin Sodium 40 Mg/0.4 Ml Syringe SUBCUT 40 mg Q24H DANGELO Administration Gabapentin 800 mg 08/04/21 21:00 08/06/21 08:50 Gabapentin 400 Mg Capsule PO 800 mg TID [facility]O Administration Methylprednisolone Sodium Succinate 60 mg 08/06/21 08:45 08/06/21 08:51 Methylprednisolone Sod Succ 125 Mg/2 Ml Vial IVPUSH 60 mg Q8H [facility]O Administration Morphine Sulfate 15 mg 08/04/21 19:58 08/06/21 07:13 Morphine Sulfate Immed Release 15 Mg Tablet PO 15 mg Q6H PRN Administration Pain (Scale Score 4-6) Nitroglycerin 0.4 mg 08/04/21 12:20 08/04/21 12:53 Nitroglycerin 0.4 Mg Tab.Subl SUBLINGUAL 0.4 mg Q5MX3 PRN Administration Chest Pain Omeprazole 20 mg 08/06/21 08:45 08/06/21 08:51 Omeprazole 20 Mg Capsule. PO 20 mg BID@4619,6288 [facility] Administration Ondansetron HCl 4 mg 08/05/21 04:14 08/05/21 04:21 Ondansetron Hcl 4 Mg/2 Ml Vial IVPUSH 4 mg Q8H PRN Administration Nausea and Vomiting Pharmacy Consult 1 each 08/04/21 15:59 Consult Rx Perform Med Rec MISCELLANE ONCE PRN Consult order Sodium Chloride 3 ml 08/05/21 00:00 08/06/21 07:16 0.9 % Sodium Chloride Flush 3 Ml Syringe IVFLUSH 3 ml QSHIFT DANGELO Administration Time Spent With Patient Time: Total time spent is greater than 50% in coordination of care (as documented) at patient's floor/unit and/or counseling patient: Time with patient: less than 15 minutes Progress Note: Quality Stroke Does the patient have a stroke diagnosis?: No Procedures Date of Service Date of Service: 08/06/21
[2021-08-06 11:48] VITALS: BP 90/62; PULSE 89; RESP 16; TEMP 35.9; O2SAT 93
--- NOTE | 2021-08-06 14:00 | P.PNIM_ITS ---
Subjective Subjective Date of Service: 08/06/21 Interval History: ILD Review of Systems Denies any new complaint of chest pain or abdominal pain or fever or chills or nausea or vomiting Has shortness of breath Denies any cough Denies any weakness or numbness. Physical Exam Vital Signs: Vital Signs: Last Vital Signs Temp 96.6 F L 08/06/21 11:48 Pulse 89 08/06/21 11:48 Resp 16 08/06/21 11:48 BP 90/62 08/06/21 11:48 Pulse Ox 93 08/06/21 11:48 Body Mass Index 24.7 Physical exam: Cvs: rrr, [id number] , no murmur res:? Fair air entry, has few scattered rhonchi and also some crackles abd: no rebound or guarding ,nt, bs present. ext pulses present , no cyanosis neuro: axo3 , nonfocal. Objective Data Active Medications Acetaminophen (Acetaminophen 325 Mg Tablet) 650 mg PO Q6H PRN PRN Reason: Pain, Severe (Pain Scale 7-10) Last Admin: 08/05/21 22:45 Dose: 650 mg Documented by: MARIELA Albuterol/Ipratropium (Albuterol/Iprat 2.5/0.5mg 3 Ml Ampul.Neb) 3 ml INHALE Q4 H PRN PRN Reason: Shortness of Breath Last Admin: 08/05/21 03:52 Dose: 3 ml Documented by: KEAGAN Aspirin (Aspirin Enteric Coated 81 Mg Tablet.) 81 mg PO DAILY [facility] Last Admin: 08/06/21 08:50 Dose: 81 mg Documented by: TYRONE Enoxaparin Sodium (Enoxaparin Sodium 40 Mg/0.4 Ml Syringe) 40 mg SUBCUT Q24H [facility] Last Admin: 08/05/21 19:30 Dose: 40 mg Documented by: MARIELA Gabapentin (Gabapentin 400 Mg Capsule) 800 mg PO TID [facility] Last Admin: 08/06/21 08:50 Dose: 800 mg Documented by: TYRONE Methylprednisolone Sodium Succinate (Methylprednisolone Sod Succ 125 Mg/2 Ml Vial) 60 mg IVPUSH Q8H [facility] Last Admin: 08/06/21 08:51 Dose: 60 mg Documented by: TYRONE Morphine Sulfate (Morphine Sulfate Immed Release 15 Mg Tablet) 15 mg PO Q6H PRN PRN Reason: Pain (Scale Score 4-6) Last Admin: 08/06/21 07:13 Dose: 15 mg Documented by: TYRONE Nitroglycerin (Nitroglycerin 0.4 Mg Tab.Subl) 0.4 mg SUBLINGUAL Q5MX3 PRN PRN Reason: Chest Pain Last Admin: 08/04/21 12:53 Dose: 0.4 mg Documented by: ANALISA Omeprazole (Omeprazole 20 Mg Capsule.Dr) 20 mg PO BID@0630,1630 [facility] Last Admin: 08/06/21 08:51 Dose: 20 mg Documented by: TYRONE Ondansetron HCl (Ondansetron Hcl 4 Mg/2 Ml Vial) 4 mg IVPUSH Q8H PRN PRN Reason: Nausea and Vomiting Last Admin: 08/05/21 04:21 Dose: 4 mg Documented by: CAYDEN Pharmacy Consult (Consult Rx Perform Med Rec) 1 each MISCELLANE ONCE PRN PRN Reason: Consult order Sodium Chloride (0.9 % Sodium Chloride Flush 3 Ml Syringe) 3 ml IVFLUSH QSHIFT [facility] Last Admin: 08/06/21 07:16 Dose: 3 ml Documented by: TYRONE Labs CBC & Chem 7: 08/05/21 06:38 08/05/21 06:38 Labs: Laboratory Results - last 24 hr 08/05/21 Unknown SARS-CoV-2 IgG Ab Negative Microbiology Microbiology Results: Microbiology 08/04/21 14:42 Blood Culture - Preliminary Blood - Venous No growth after 24 hours. 08/04/21 12:43 Blood Culture - Preliminary Blood - Venous No growth after 24 hours. Assessment and Plan (1) Respiratory failure: Status: Acute (2) Chest pain: Status: Acute Assessment and Plan: 61-year-old female with history of ild, smoker, recent COVID pneumonia, came to the hospital because of chest pain or shortness of breath admission was called because of chest pain and right-sided heart failure workup. 1. Chest pain: Improving, abnormal EKG, troponin flat CTa-seems negative for pulmonary embolism but has question of diffuse interstitial lung disease versus postviral changes. Cardiology evaluation -thought thought to be atypical cardiac pain, echo : The left ventricular systolic function is normal.? The visually estimated ejection fraction is between 60-65%. ? - Moderately increased right ventricular cavity size.? There is? normal right ventricular systolic function. Distal part of right ventricular free wall appears hypokinetic. ? - No obvious valvular pathology seen on this study.? - The pulmonary artery systolic pressure is normal. Continue aspirin, lipid panel LDL is around 70. 2. Probable CHF question right-sided heart failure will use small dose lasix -less likely significant chf. 3. Acute hypoxemic respiratory failure secondary to CHF versus [place] D :? Continue supportive care as above I LD workup added Started on IV steroids Ppi for GI prophylaxis Pulmonary evaluation- continue above, pulmonary continue follow-up. 4.? chronic opioid use: She says that she has already taper down to morphine small dose 15 mg and gabapentin for pain, continue that for now. DVT prophylaxis with subQ Lovenox. Quality Stroke Does the patient have a stroke diagnosis?: No VTE Prior VTE?: No VTE Risk Level:: Medical - moderate - high VTE Device Contraindication: N/A - Device Ordered VTE Drug Contraindication: N/A - Med Ordered
[2021-08-06 16:00] VITALS: BP 93/66; PULSE 81; RESP 16; TEMP 36.3; O2SAT 93
[2021-08-06] MEDS: Enoxaparin Sodium 40 MG/0.4 ML SYRINGE SUBCUT (17:12)
[2021-08-06 20:00] VITALS: BP 111/61; PULSE 98; RESP 16; TEMP 36.9; O2SAT 90
[2021-08-07] VITALS (7 sets, daily range): BP systolic 92–140; BP diastolic 58–76; PULSE 72–97; RESP 14–19; TEMP 36.1–36.8; O2SAT 90–94
[2021-08-07] MEDS: methylPREDNISolone Sod Succ 125 MG/2 ML VIAL 60 MG IVPUSH ×3 (00:45→15:17)
[2021-08-07] MEDS: 0.9 % Sodium Chloride Flush 3 ML SYRINGE IVFLUSH ×2 (00:48→15:18)
[2021-08-07 01:26] LABS: Cyclic Citrullinated Peptide <16 UNITS
[2021-08-07] MEDS: Morphine Sulfate Immed Release 15 MG TABLET PO ×3 (01:56→15:17)
[2021-08-07] MEDS: ALPRAZolam 0.5 MG TABLET PO ×2 (01:57→20:25)
[2021-08-07] MEDS: Omeprazole 20 MG CAPSULE.DR PO ×2 (06:26→15:17)
[2021-08-07] MEDS: Aspirin Enteric Coated 81 MG TABLET.DR PO (09:18)
[2021-08-07] MEDS: Gabapentin 400 MG CAPSULE 800 MG PO ×3 (09:18→20:25)
[2021-08-07 11:51] LABS: Immunoglobulin E 107 kU/L (<OR=114)
--- NOTE | 2021-08-07 13:06 | PM.PNPUL ---
Subjective Subjective Date of Service: 08/07/21 Interval history: The patient was seen on exam. Continues to be on the oxygen supplementation. Able to decrease some. She has continued on the Solu-Medrol. Her respiratory damage is a little better. Will continue to assess her progress. Which do awaiting laboratory data. If the patient is not significantly improving by next week considered biopsy. We did talk about lung biopsy versus bronchoscopic transbronchial biopsies. Hopefully her stay condition improved and she is able to go home and can follow her as an outpatient. Objective Data Labs CBC & Chem 7: 08/05/21 06:38 08/05/21 06:38 Labs: Laboratory Results - last 24 hr 08/05/21 08/05/21 10:38 10:38 IgE 107 Cycl Citrul Peptide IgG <16 Microbiology Microbiology Results: Microbiology 08/04/21 14:42 Blood - Venous Blood Culture - Preliminary No growth after 48 hours. 08/04/21 12:43 Blood - Venous Blood Culture - Preliminary No growth after 48 hours. Review of Systems Constitutional: Denies night sweats Denies change in voice, Denies lip swelling, Denies mouth pain, Reports nasal congestion, Reports nasal discharge and Denies tongue swelling Cardiovascular: Denies chest pain, Reports dyspnea and Reports dyspnea on exertion Respiratory: Reports cough, Reports dyspnea and Reports dyspnea on exertion Gastrointestinal: Denies abdominal pain Musculoskeletal: Denies no additional musculoskeletal complaints Denies Neuro-related abnormal movements Psychiatric: Denies no additional psychiatric complaints Hematologic/Lymphatic: Denies easy bleeding and Denies lymphadenopathy Allergic/Immunologic: Denies lip swelling and Denies tongue swelling Physical Exam Vital Signs: Vital Signs: Last Vital Signs Temp 97.1 F 08/07/21 11:57 Pulse 97 08/07/21 11:57 Resp 18 08/07/21 11:57 BP 100/60 08/07/21 11:57 Pulse Ox 92 08/07/21 11:57 Body Mass Index 24.7 Const: General: alert Eyes: Pupils: Equal, round and reactive pupils present Neck: Neck: Yes normal visual inspection, Yes full ROM and Yes no lymphadenopathy Chest: Chest palpation & inspection: normal inspection of the chest Resp: Auscultation: crackles, rales and diminished lung sounds Cardio: Rate: regular rate Rhythm: regular rhythm Heart sounds: S1 normal heart sound present and S2 normal heart sound present GI: Palpation (GI): Soft to palpation and nontender Auscultation: normal bowel sounds Skin: General skin exam: rashes and/or lesions noted Neuro: Cranial nerves: Yes Equal, round and reactive pupils present Procedures Date of Service Date of Service: 08/07/21 Assessment and Plan Assessment and plan (1) Lymphadenopathy, mediastinal: Status: Acute (2) Chronic interstitial lung disease: Status: Acute (3) Pneumonitis: Status: Acute Assessment and Plan: Continue Solu-Medrol Awaiting blood work Continue oxygen supplementation Will reassess this and ultimately Tuesday. If the patient is not making significant improvement will discuss other diagnostic interventions. Time Spent With Patient Time: Total time spent is greater than 50% in coordination of care (as documented) at patient's floor/unit and/or counseling patient: Time with patient: 15 - 24 minutes Progress Note: Quality Stroke Does the patient have a stroke diagnosis?: No
--- NOTE | 2021-08-07 15:10 | MHC.CM.PN ---
EMR REVIEWED, PT CONT'S TO BE ON 3-5L O2 NC AND IV SOLU MEDROL, PER PULMONARY IF NO IMPROVEMENT PT WILL NEED LUNG BIOPSY NEXT WEEK, PER HOSPITALIST ANTICIPATE PT WILL REMAIN INPT AT LEAST 2-3 MORE DAYS. D/C PLAN: HOME W/NEW [facility], PT WILL ARRANGE TRANSPORT.
[2021-08-07] MEDS: Enoxaparin Sodium 40 MG/0.4 ML SYRINGE SUBCUT (17:34)
--- NOTE | 2021-08-07 18:16 | HO.PM.IMPN ---
Subjective Subjective Date of Service: 08/07/21 Interval History: Acute hypoxemic respiratory failure secondary to I LD. Review of Systems Shortness of breath seems to be improving Denies any new complaint of chest pain or abdominal pain or fever or chills or nausea or vomiting Denies any cough Denies any weakness or numbness. Physical Exam Vital Signs: Vital Signs: Last Vital Signs Temp 98.0 F 08/07/21 16:00 Pulse 86 08/07/21 16:00 Resp 19 08/07/21 16:00 BP 140/60 H 08/07/21 16:00 Pulse Ox 93 08/07/21 16:00 Body Mass Index 24.7 Physical exam: Appearance: Alert.? Oriented X3.? not in distress.? Eyes: Pupils equal, round and reactive to light.? Sclera nonicteric.? ENT: Pharynx normal.? Moist mucous membranes. cvs: rrr, [id number] , no murmur res: Air entry seems improving, has some rhonchi per scattered abd: no rebound or guarding ,nt, bs present. ext pulses present , no cyanosis ,Gait well balanced well coordinated. neuro: axo3 , nonfocal. Objective Data Active Medications Acetaminophen (Acetaminophen 325 Mg Tablet) 650 mg PO Q6H PRN PRN Reason: Pain, Severe (Pain Scale 7-10) Last Admin: 08/05/21 22:45 Dose: 650 mg Documented by: MARIELA Albuterol/Ipratropium (Albuterol/Iprat 2.5/0.5mg 3 Ml Ampul.Neb) 3 ml INHALE Q4H PRN PRN Reason: Shortness of Breath Last Admin: 08/05/21 03:52 Dose: 3 ml Documented by: KEAGAN Alprazolam (Alprazolam 0.5 Mg Tablet) 0.5 mg PO BEDTIME [facility] Last Admin: 08/07/21 01:57 Dose: 0.5 mg Documented by: ANA Aspirin (Aspirin Enteric Coated 81 Mg Tablet.) 81 mg PO DAILY [facility] Last Admin: 08/07/21 09:18 Dose: 81 mg Documented by: HUNTER Enoxaparin Sodium (Enoxaparin Sodium 40 Mg/0.4 Ml Syringe) 40 mg SUBCUT Q24H [facility] Last Admin: 08/07/21 17:34 Dose: 40 mg Documented by: HUNTER Gabapentin (Gabapentin 400 Mg Capsule) 800 mg PO TID [facility] Last Admin: 08/07/21 15:17 Dose: 800 mg Documented by: HUNTER Methylprednisolone Sodium Succinate (Methylprednisolone Sod Succ 125 Mg/2 Ml Vial) 60 mg IVPUSH Q8H [facility] Last Admin: 08/07/21 15:17 Dose: 60 mg Documented by: HUNTER Morphine Sulfate (Morphine Sulfate Immed Release 15 Mg Tablet) 15 mg PO Q6H PRN PRN Reason: Pain (Scale Score 4-6) Last Admin: 08/07/21 15:17 Dose: 15 mg Documented by: HUNTER Nitroglycerin (Nitroglycerin 0.4 Mg Tab.Subl) 0.4 mg SUBLINGUAL Q5MX3 PRN PRN Reason: Chest Pain Last Admin: 08/04/21 12:53 Dose: 0.4 mg Documented by: ANALISA Omeprazole (Omeprazole 20 Mg Capsule.Dr) 20 mg PO BID@0630,1630 [facility] Last Admin: 08/07/21 15:17 Dose: 20 mg Documented by: HUNTER Ondansetron HCl (Ondansetron Hcl 4 Mg/2 Ml Vial) 4 mg IVPUSH Q8H PRN PRN Reason: Nausea and Vomiting Last Admin: 08/05/21 04:21 Dose: 4 mg Documented by: CAYDEN Pharmacy Consult (Consult Rx Perform Med Rec) 1 each MISCELLANE ONCE PRN PRN Reason: Consult order Sodium Chloride (0.9 % Sodium Chloride Flush 3 Ml Syringe) 3 ml IVFLUSH QSHIFT [facility] Last Admin: 08/07/21 15:18 Dose: 3 ml Documented by: HUNTER Labs CBC & Chem 7: 08/05/21 06:38 08/05/21 06:38 Labs: Laboratory Results - last 24 hr 08/05/21 08/05/21 10:38 10:38 IgE 107 Cycl Citrul Peptide IgG <16 Microbiology Microbiology Results: Microbiology 08/04/21 14:42 Blood Culture - Preliminary Blood - Venous No growth after 48 hours. 08/04/21 12:43 Blood Culture - Preliminary Blood - Venous No growth after 48 hours. Assessment and Plan (1) Right ventricular enlargement: Status: Acute (2) Respiratory failure: Status: Acute (3) Chronic interstitial lung disease: Status: Acute Assessment and Plan: 61-year-old female with history of ild, smoker, recent COVID pneumonia, came to the hospital because of chest pain or shortness of breath admission was called because of chest pain and right-sided heart failure workup. 1. Chest pain: Improving, abnormal EKG, troponin flat CTa-seems negative for pulmonary embolism but has question of diffuse interstitial lung disease versus postviral changes. Cardiology evaluation -thought thought to be atypical cardiac pain, echo : The left ventricular systolic function is normal.? The visually estimated ejection fraction is between 60-65%. ? - Moderately increased right ventricular cavity size.? There is? normal right ventricular systolic function. Distal part of right ventricular free wall appears hypokinetic. ? - No obvious valvular pathology seen on this study.? - The pulmonary artery systolic pressure is normal. Continue aspirin,? lipid panel LDL is around 70. 2. Probable CHF question right-sided heart failure will use small dose lasix -less likely significant chf. 3. Acute hypoxemic respiratory failure secondary to CHF versus [place] D :? Continue supportive care as above I LD workup added Started on IV steroids Ppi for GI prophylaxis pulm following 4.? chronic opioid use: She says that she has already taper down to morphine small dose 15 mg and gabapentin for pain, continue that for now. DVT prophylaxis with subQ Lovenox. Quality Stroke Does the patient have a stroke diagnosis?: No VTE Prior VTE?: No VTE Risk Level:: Medical - moderate - high VTE Device Contraindication: N/A - Device Ordered VTE Drug Contraindication: N/A - Med Ordered
[2021-08-07] MEDS: Acetaminophen 325 MG TABLET 650 MG PO (20:27)
[2021-08-07 23:07] LABS: Anti Nuclear Antibody Screen POSITIVE (NEGATIVE)
[2021-08-08] MEDS: methylPREDNISolone Sod Succ 125 MG/2 ML VIAL 60 MG IVPUSH ×4 (01:23→23:10)
[2021-08-08] MEDS: 0.9 % Sodium Chloride Flush 3 ML SYRINGE IVFLUSH ×4 (01:24→23:10)
[2021-08-08 03:43] VITALS: BP 116/74; PULSE 73; RESP 18; TEMP 36.4; O2SAT 93
[2021-08-08] MEDS: Morphine Sulfate Immed Release 15 MG TABLET PO ×4 (04:57→23:11)
[2021-08-08] MEDS: Omeprazole 20 MG CAPSULE.DR PO ×2 (04:57→15:56)
[2021-08-08 07:38] VITALS: BP 125/77; PULSE 75; RESP 17; TEMP 36.4; O2SAT 93
[2021-08-08] MEDS: Gabapentin 400 MG CAPSULE 800 MG PO ×3 (08:25→19:45)
[2021-08-08] MEDS: Acetaminophen 325 MG TABLET 650 MG PO ×2 (08:25→15:56)
[2021-08-08] MEDS: Aspirin Enteric Coated 81 MG TABLET.DR PO (08:25)
[2021-08-08 12:00] VITALS: BP 117/65; PULSE 66; RESP 18; TEMP 36.6; O2SAT 94
--- NOTE | 2021-08-08 13:29 | HO.PM.IMPN ---
Subjective Subjective Date of Service: 08/08/21 Interval History: acute hypoxemic respiratory failure /ILD. Review of Systems Shortness of breath minimum improvement so far. Denies any new complaint of chest pain or abdominal pain or fever or chills or nausea or vomiting Denies any cough Denies any weakness or numbness. Physical Exam Vital Signs: Vital Signs: Last Vital Signs Temp 97.8 F 08/08/21 12:00 Pulse 66 08/08/21 12:00 Resp 18 08/08/21 12:00 BP 117/65 08/08/21 12:00 Pulse Ox 94 08/08/21 12:00 Body Mass Index 24.7 Appearance: Alert.? Oriented X3.? not in distress.? Eyes: Pupils equal, round and reactive to light.? Sclera nonicteric.? ENT: Pharynx normal.? Moist mucous membranes. cvs: rrr, [id number] , no murmur res:? Air entry fair , has some rhonchi per scattered abd: no rebound or guarding ,nt, bs present. ext pulses present , no cyanosis ,Gait well balanced well coordinated. neuro: axo3 , nonfocal. Objective Data Active Medications Acetaminophen (Acetaminophen 325 Mg Tablet) 650 mg PO Q6H PRN PRN Reason: Pain, Severe (Pain Scale 7-10) Last Admin: 08/08/21 08:25 Dose: 650 mg Documented by: ALYSE Albuterol/Ipratropium (Albuterol/Iprat 2.5/0.5mg 3 Ml Ampul.Neb) 3 ml INHALE Q4H PRN PRN Reason: Shortness of Breath Last Admin: 08/05/21 03:52 Dose: 3 ml Documented by: KEAGAN Alprazolam (Alprazolam 0.5 Mg Tablet) 0.5 mg PO BEDTIME [facility] Last Admin: 08/07/21 20:25 Dose: 0.5 mg Documented by: LAURA Aspirin (Aspirin Enteric Coated 81 Mg Tablet.) 81 mg PO DAILY [facility] Last Admin: 08/08/21 08:25 Dose: 81 mg Documented by: ALYSE Doxycycline Hyclate (Doxycycline Hyclate 100 Mg Tablet) 100 mg PO Q12H [facility] Last Admin: 08/08/21 13:25 Dose: 100 mg Documented by: ALYSE Enoxaparin Sodium (Enoxaparin Sodium 40 Mg/0.4 Ml Syringe) 40 mg SUBCUT Q24H [facility] Last Admin: 08/07/21 17:34 Dose: 40 mg Documented by: COTEMA Gabapentin (Gabapentin 400 Mg Capsule) 800 mg PO TID [facility] Last Admin: 08/08/21 08:25 Dose: 800 mg Documented by: ALYSE Methylprednisolone Sodium Succinate (Methylprednisolone Sod Succ 125 Mg/2 Ml Vial) 60 mg IVPUSH Q8H [facility] Last Admin: 08/08/21 08:25 Dose: 60 mg Documented by: ALYSE Morphine Sulfate (Morphine Sulfate Immed Release 15 Mg Tablet) 15 mg PO Q6H PRN PRN Reason: Pain (Scale Score 4-6) Last Admin: 08/08/21 11:00 Dose: 15 mg Documented by: ALYSE Nitroglycerin (Nitroglycerin 0.4 Mg Tab.Subl) 0.4 mg SUBLINGUAL Q5MX3 PRN PRN Reason: Chest Pain Last Admin: 08/04/21 12:53 Dose: 0.4 mg Documented by: ANALISA Omeprazole (Omeprazole 20 Mg Capsule.Dr) 20 mg PO BID@0630,1630 [facility] Last Admin: 08/08/21 04:57 Dose: 20 mg Documented by: LAURA Ondansetron HCl (Ondansetron Hcl 4 Mg/2 Ml Vial) 4 mg IVPUSH Q8H PRN PRN Reason: Nausea and Vomiting Last Admin: 08/05/21 04:21 Dose: 4 mg Documented by: CAYDEN Pharmacy Consult (Consult Rx Perform Med Rec) 1 each MISCELLANE ONCE PRN PRN Reason: Consult order Sodium Chloride (0.9 % Sodium Chloride Flush 3 Ml Syringe) 3 ml IVFLUSH QSHIFT [facility] Last Admin: 08/08/21 08:25 Dose: 3 ml Documented by: ALYSE Labs CBC & Chem 7: 08/05/21 06:38 08/05/21 06:38 Labs: Laboratory Results - last 24 hr 08/05/21 10:38 FLOWER Screen POSITIVE A FLOWER Titer 1:160 H FLOWER Titer 2 TNP FLOWER Titer 3 TNP FLOWER Pattern A FLOWER Pattern 2 TNP FLOWER Pattern 3 TNP Assessment and Plan (1) Respiratory failure: Status: Acute Assessment and Plan: 61-year-old female with history of ild, smoker, recent COVID pneumonia, came to the hospital because of chest pain or shortness of breath admission was called because of chest pain and right-sided heart failure workup. 1. Chest pain: Improving, abnormal EKG, troponin flat CTa-seems negative for pulmonary embolism but has question of diffuse interstitial lung disease versus postviral changes. Cardiology evaluation -thought thought to be atypical cardiac pain, echo : The left ventricular systolic function is normal.? The visually estimated ejection fraction is between 60-65%. ? - Moderately increased right ventricular cavity size.? There is? normal right ventricular systolic function. Distal part of right ventricular free wall appears hypokinetic. ? - No obvious valvular pathology seen on this study.? - The pulmonary artery systolic pressure is normal. Continue aspirin,? lipid panel LDL is around 70. 2. Probable CHF question right-sided heart failure will use small dose lasix -less likely significant chf. 3. Acute hypoxemic respiratory failure secondary to CHF versus [place] D :? Continue supportive care as above I LD workup added Started on IV steroids Ppi for GI prophylaxis pulm following- If patient does not improve with IV steroids may need lung biopsy. 4.? chronic opioid use: She says that she has already taper down to morphine small dose 15 mg and gabapentin for pain, continue that for now. DVT prophylaxis with subQ Lovenox. Quality Stroke Does the patient have a stroke diagnosis?: No VTE Prior VTE?: No VTE Risk Level:: Medical - moderate - high VTE Device Contraindication: N/A - Device Ordered VTE Drug Contraindication: N/A - Med Ordered
[2021-08-08 15:40] VITALS: BP 114/60; PULSE 90; RESP 18; TEMP 36.8; O2SAT 96
[2021-08-08] MEDS: Enoxaparin Sodium 40 MG/0.4 ML SYRINGE SUBCUT (17:02)
[2021-08-08 19:38] VITALS: BP 105/59; PULSE 82; RESP 18; TEMP 36.8; O2SAT 96
[2021-08-08] MEDS: ALPRAZolam 0.5 MG TABLET PO (19:46)
--- NOTE | 2021-08-08 23:04 | P.PNPL_ITS ---
Subjective Subjective Date of Service: 08/08/21 Interval history: Seen and examined. Slowly improving. The patient is getting frustrated. +FLOWER, will request additional testing. Objective Data Labs CBC & Chem 7: 08/05/21 06:38 08/05/21 06:38 Labs: Laboratory Results - last 24 hr 08/05/21 10:38 FLOWER Screen POSITIVE A FLOWER Titer 1:160 H FLOWER Titer 2 TNP FLOWER Titer 3 TNP FLOWER Pattern A FLOWER Pattern 2 TNP FLOWER Pattern 3 TNP Microbiology Microbiology Results: Microbiology 08/04/21 14:42 Blood - Venous Blood Culture - Preliminary No growth after 48 hours. 08/04/21 12:43 Blood - Venous Blood Culture - Preliminary No growth after 48 hours. Review of Systems Constitutional: Denies night sweats Denies change in voice, Denies lip swelling, Denies mouth pain, Reports nasal congestion, Reports nasal discharge and Denies tongue swelling Cardiovascular: Denies chest pain, Reports dyspnea and Reports dyspnea on exertion Respiratory: Reports cough, Reports dyspnea and Reports dyspnea on exertion Gastrointestinal: Denies abdominal pain Musculoskeletal: Denies no additional musculoskeletal complaints Denies Neuro-related abnormal movements Psychiatric: Denies no additional psychiatric complaints Hematologic/Lymphatic: Denies easy bleeding and Denies lymphadenopathy Allergic/Immunologic: Denies lip swelling and Denies tongue swelling Physical Exam Vital Signs: Vital Signs: Last Vital Signs Temp 98.2 F 08/08/21 19:38 Pulse 82 08/08/21 19:38 Resp 18 08/08/21 19:38 BP 105/59 L 08/08/21 19:38 Pulse Ox 96 08/08/21 19:38 Body Mass Index 24.7 Const: General: alert Neck: Neck: Yes normal visual inspection, Yes full ROM and Yes no lymph adenopathy Chest: Chest palpation & inspection: normal inspection of the chest Resp: Auscultation: crackles, rales, rhonchi and diminished lung sounds Cardio: Rate: regular rate Rhythm: regular rhythm Heart sounds: S1 normal heart sound present and S2 normal heart sound present GI: Palpation (GI): Soft to palpation and nontender Auscultation: normal bowel sounds Skin: General skin exam: rashes and/or lesions noted Procedures Date of Service Date of Service: 08/08/21 Assessment and Plan Assessment and plan (1) Lymphadenopathy, mediastinal: Status: Acute (2) Respiratory failure: Status: Acute (3) Chronic interstitial lung disease: Status: Acute (4) Pneumonitis: Status: Acute Assessment and Plan: Additional bloodwork requested Continue solumedrol If no improvement may benefit from a lung biopsy. She is reluctant, but if she needs one prefers a surgical biopsy Continue oxygen supplementation to keep pox>90% OOB Time Spent With Patient Time: Total time spent is greater than 50% in coordination of care (as documented) at patient's floor/unit and/or counseling patient: Time with patient: 25 - 35 minutes Progress Note: Quality Stroke Does the patient have a stroke diagnosis?: No
[2021-08-08 23:45] VITALS: BP 130/82; PULSE 66; RESP 16; TEMP 36.1; O2SAT 94
[2021-08-09 04:00] VITALS: BP 128/75; PULSE 51; RESP 16; TEMP 36.4; O2SAT 92
[2021-08-09] MEDS: Omeprazole 20 MG CAPSULE.DR PO ×2 (04:46→17:17)
[2021-08-09] MEDS: Morphine Sulfate Immed Release 15 MG TABLET PO ×3 (04:46→20:16)
[2021-08-09 05:37] LABS: Angiotensin Converting Enzyme 18 U/L (9-67)
[2021-08-09 05:57] LABS: Anion Gap 13 (12-20); Blood Urea Nitrogen 18 mg/dL (9-16); Calcium 8.9 mg/dL (8.4-10.2); Carbon Dioxide 31 mmol/L (22-29); Chloride 100 mmol/L (96-108); Creatinine Clr Calc Pharmacy 87.1; Estimated Glomerular Filt Rate > 60; Glucose Random 116 mg/dL (60-115); Potassium 3.9 mmol/L (3.3-5.1); Sodium 140 mmol/L (135-145)
--- NOTE | 2021-08-09 06:09 | MHC.PIE ---
p; p 30-40. now back up in the 50's. note; prn morphine given at 0445 and pt is asleep at this time. i; dr traylor notified e; will cont to monitor
--- NOTE | 2021-08-09 06:10 | P.EN_ITS ---
Event Note Date of Service: 08/09/21 Event Note: pt heart rate dropped to 30s for few mins with no symptoms. sponta neously returned to 50s while woke up by nurse to check on symptoms
[2021-08-09 07:44] VITALS: BP 123/67; PULSE 61; RESP 22; TEMP 36.7; O2SAT 92
[2021-08-09] MEDS: methylPREDNISolone Sod Succ 125 MG/2 ML VIAL 60 MG IVPUSH ×3 (09:17→23:14)
[2021-08-09] MEDS: 0.9 % Sodium Chloride Flush 3 ML SYRINGE IVFLUSH ×3 (09:17→23:15)
[2021-08-09] MEDS: Aspirin Enteric Coated 81 MG TABLET.DR PO (09:18)
[2021-08-09] MEDS: Acetaminophen 325 MG TABLET 650 MG PO (09:18)
[2021-08-09] MEDS: Gabapentin 400 MG CAPSULE 800 MG PO ×3 (09:18→20:17)
[2021-08-09 09:33] LABS: Thyroid Stimulating Hormone 0.24 uIU/mL (0.32-4.0)
--- NOTE | 2021-08-09 09:54 | P.PNIM_ITS ---
Subjective Subjective Date of Service: 08/10/21 Interval History: acute hypoxemic resp failure sec to ILD. Overnight bradycardia- otherwise asymptomatic Review of Systems Patient still short of breath with walking. Has cough dry. Denies any new complaint of chest pain or abdominal pain or fever or chills or nausea or vomiting Denies any weakness or numbness. Physical Exam Vital Signs: Vital Signs: Last Vital Signs Temp 98.0 F 08/09/21 07:44 Pulse 61 08/09/21 07:44 Resp 22 H 08/09/21 07:44 BP 123/67 08/09/21 07:44 Pulse Ox 92 08/09/21 07:44 Body Mass Index 24.7 Alert.?somewhat anxious,? not in distress.? Eyes: Pupils equal, round and reactive to light.? Sclera nonicteric.? ENT: Pharynx normal.? Moist mucous membranes. cvs: rrr, [id number] res:? Air entry fair , has some rhonchi per scattered abd: no rebound or guarding ,nt, bs present. ext pulses present , no cyanosis ,Gait well balanced well coordinated. neuro: axo3 , nonfocal. Objective Data Active Medications Acetaminophen (Acetaminophen 325 Mg Tablet) 650 mg PO Q6H PRN PRN Reason: Pain, Severe (Pain Scale 7-10) Last Admin: 08/09/21 09:18 Dose: 650 mg Documented by: ALYSE Albuterol/Ipratropium (Albuterol/Iprat 2.5/0.5mg 3 Ml Ampul.Neb) 3 ml INHALE Q4H PRN PRN Reason: Shortness of Breath Last Admin: 08/05/21 03:52 Dose: 3 ml Documented by: KEAGAN Alprazolam (Alprazolam 0.5 Mg Tablet) 0.5 mg PO BEDTIME [facility] Last Admin: 08/08/21 19:46 Dose: 0.5 mg Documented by: ROMAIN Aspirin (Aspirin Enteric Coated 81 Mg Tablet.) 81 mg PO DAILY [facility] Last Admin: 08/09/21 09:18 Dose: 81 mg Documented by: ALYSE Doxycycline Hyclate (Doxycycline Hyclate 100 Mg Tablet) 100 mg PO Q12H [facility] Last Admin: 08/08/21 23:11 Dose: 100 mg Documented by: ROMAIN Enoxaparin Sodium (Enoxaparin Sodium 40 Mg/0.4 Ml Syringe) 40 mg SUBCUT Q24H [facility] Last Admin: 08/08/21 17:02 Dose: 40 mg Documented by: ALYSE Gabapentin (Gabapentin 400 Mg Capsule) 800 mg PO TID [facility] Last Admin: 08/09/21 09:18 Dose: 800 mg Documented by: ALYSE Methylprednisolone Sodium Succinate (Methylprednisolone Sod Succ 125 Mg/2 Ml Vial) 60 mg IVPUSH Q8H [facility] Last Admin: 08/09/21 09:17 Dose: 60 mg Documented by: ALYSE Morphine Sulfate (Morphine Sulfate Immed Release 15 Mg Tablet) 15 mg PO Q6H PRN PRN Reason: Pain (Scale Score 4-6) Last Admin: 08/09/21 04:46 Dose: 15 mg Documented by: ROMAIN Nitroglycerin (Nitroglycerin 0.4 Mg Tab.Subl) 0.4 mg SUBLINGUAL Q5MX3 PRN PRN Reason: Chest Pain Last Admin: 08/04/21 12:53 Dose: 0.4 mg Documented by: ANALISA Omeprazole (Omeprazole 20 Mg Capsule.) 20 mg PO BID@0630,1630 [facility] Last Admin: 08/09/21 04:46 Dose: 20 mg Documented by: ROMAIN Ondansetron HCl (Ondansetron Hcl 4 Mg/2 Ml Vial) 4 mg IVPUSH Q8H PRN PRN Reason: Nausea and Vomiting Last Admin: 08/05/21 04:21 Dose: 4 mg Documented by: CAYDEN Pharmacy Consult (Consult Rx Perform Med Rec) 1 each MISCELLANE ONCE PRN PRN Reason: Consult order Sodium Chloride (0.9 % Sodium Chloride Flush 3 Ml Syringe) 3 ml IVFLUSH QSHIFT [facility] Last Admin: 08/09/21 09:17 Dose: 3 ml Documented by: ALYSE Labs CBC & Chem 7: 08/05/21 06:38 08/09/21 04:16 Labs: Laboratory Results - last 24 hr 08/05/21 08/05/21 08/09/21 10:38 10:38 04:16 Anion Gap 13 Estim Creat Clear Calc 87.1 Estimated GFR > 60 Random Glucose 116 H Calcium 8.9 Angiotensin Convert Enz 18 TSH 0.24 L FLOWER Titer 2 TNP FLOWER Titer 3 TNP FLOWER Pattern 2 TNP FLOWER Pattern 3 TNP Assessment and Plan (1) Respiratory failure: Status: Acute Assessment and Plan: 61-year-old female with history of ild, smoker, recent COVID pneumonia, came to the hospital because of chest pain or shortness of breath admission was called because of chest pain and right-sided heart failure workup. 1. Chest pain: Improving, abnormal EKG, troponin flat CTa-seems negative for pulmonary embolism but has question of diffuse interstitial lung disease versus postviral changes. Cardiology evaluation -thought thought to be atypical cardiac pain, echo : The left ventricular systolic function is normal.? The visually estimated ejection fraction is between 60-65%. ? - Moderately increased right ventricular cavity size.? There is? normal right ventricular systolic function. Distal part of right ventricular free wall appears hypokinetic. ? - No obvious valvular pathology seen on this study.? - The pulmonary artery systolic pressure is normal. Continue aspirin,? lipid panel LDL is around 70. 2. Probable CHF question right-sided heart failure will use small dose lasix -less likely significant chf. 3. Acute hypoxemic respiratory failure secondary to CHF versus [place] D :? Continue supportive care as above I LD workup added Started on IV steroids Ppi for GI prophylaxis pulm following-? If patient does not improve with IV steroids may need lung biopsy. 4.? chronic opioid use: She says that she has already taper down to morphine small dose 15 mg and gabapentin for pain, continue that for now. DVT prophylaxis with subQ Lovenox. Quality Stroke Does the patient have a stroke diagnosis?: No VTE Prior VTE?: No VTE Risk Level:: Medical - moderate - high VTE Device Contraindication: N/A - Device Ordered VTE Drug Contraindication: N/A - Med Ordered
[2021-08-09 11:53] VITALS: BP 140/64; PULSE 64; RESP 19; TEMP 36.4; O2SAT 91
[2021-08-09] MEDS: guaiFENesin 100 MG/5 ML LIQUID PO ×2 (12:36→20:17)
[2021-08-09] MEDS: ALPRAZolam 0.5 MG TABLET PO ×2 (15:04→20:17)
[2021-08-09 15:26] VITALS: BP 137/64; PULSE 96; RESP 18; TEMP 36.6; O2SAT 93
[2021-08-09] MEDS: Enoxaparin Sodium 40 MG/0.4 ML SYRINGE SUBCUT (17:17)
[2021-08-09 19:21] VITALS: BP 138/76; PULSE 76; RESP 18; TEMP 37.2; O2SAT 96
[2021-08-09] MEDS: diphenhydrAMINE HCL 50 MG/ML VIAL 25 MG IVPUSH (23:36)
[2021-08-10] VITALS: BP 130/81; PULSE 71; RESP 16; TEMP 36.2; O2SAT 99
[2021-08-10] MEDS: Omeprazole 20 MG CAPSULE.DR PO (06:28)
--- NOTE | 2021-08-10 06:33 | MHC.PIE ---
p; pulse 30's-40's while asleep at time. note pt pule in 30's-40's last night as will. note; when awake, pulse go up to the 70's i; notified e; will cont to moniotor
[2021-08-10 07:49] VITALS: BP 116/58; PULSE 63; RESP 19; TEMP 36.5; O2SAT 96
[2021-08-10] MEDS: ALPRAZolam 0.5 MG TABLET PO (08:37)
[2021-08-10] MEDS: Gabapentin 400 MG CAPSULE 800 MG PO ×2 (08:38→14:39)
[2021-08-10] MEDS: Morphine Sulfate Immed Release 15 MG TABLET PO ×2 (08:38→14:39)
[2021-08-10] MEDS: Aspirin Enteric Coated 81 MG TABLET.DR PO (08:38)
[2021-08-10] MEDS: methylPREDNISolone Sod Succ 125 MG/2 ML VIAL 60 MG IVPUSH (08:38)
[2021-08-10] MEDS: 0.9 % Sodium Chloride Flush 3 ML SYRINGE IVFLUSH (08:39)
--- NOTE | 2021-08-10 10:03 | MHC.CM.PN ---
CM MET W/PT WHO WAS REQUESTING [facility] [facility]/HOME HEALTH SERVICES AND VNA, PT REPORTS SHE WOULD LIKE [facility] FOR [facility]NA AND PT GIVEN INFORMATION ON [facility] AND [facility] AND WAS INFORMED SHE WOULD NEED TO GO THROUGH PCP OFFICE FOR [facility]HOME HEALTH, PT REPORTS SHE HAD DONE THAT AND HER PCP [facility] HAD SENT A REFERRAL FOR SERVICES BACK IN FEBRUARY AND PT IS STILL WAITING, PT COULD NOT RECALL THE COMPANY IN [place] REFERRAL WAS SENT TO, CM WILL CONTACT PCP'S OFFICE TO VERIFY.
[2021-08-10 11:47] VITALS: BP 119/75; PULSE 71; RESP 16; TEMP 36.7; O2SAT 97
[2021-08-10] MEDS: Acetaminophen 325 MG TABLET 650 MG PO (13:32)
--- NOTE | 2021-08-10 13:40 | P.PNIM_ITS ---
Subjective Subjective Date of Service: 08/10/21 Interval History: acute hypoxemic resp failure due to ILD Review of Systems sob seems improving ,still gets smewhat winded with walking Denies any new complaint of chest pain or abdominal pain or fever or chills or nausea or vomiting Denies any cough Denies any weakness or numbness. Physical Exam Vital Signs: Vital Signs: Last Vital Signs Temp 98.0 F 08/10/21 11:47 Pulse 71 08/10/21 11:47 Resp 16 08/10/21 11:47 BP 119/75 08/10/21 11:47 Pulse Ox 97 08/10/21 11:47 Body Mass Index 24.7 Physical: Alert.?somewhat anxious,? not in distress.? Eyes: Pupils equal, round and reactive to light.? Sclera nonicteric.? ENT: Pharynx normal.? Moist mucous membranes. cvs: rrr, [id number] res:? air enrty slightly better , still has few rhonchii abd: no rebound or guarding ,nt, bs present. ext pulses present , no cyanosis neuro: axo3 , nonfocal. Objective Data Active Medications Acetaminophen (Acetaminophen 325 Mg Tablet) 650 mg PO Q6H PRN PRN Reason: Pain, Severe (Pain Scale 7-10) Last Admin: 08/10/21 13:32 Dose: 650 mg Documented by: ALYSE Albuterol/Ipratropium (Albuterol/Iprat 2.5/0.5mg 3 Ml Ampul.Neb) 3 ml INHALE Q4H PRN PRN Reason: Shortness of Breath Last Admin: 08/05/21 03:52 Dose: 3 ml Documented by: KEAGAN Alprazolam (Alprazolam 0.5 Mg Tablet) 0.5 mg PO BID [facility] Last Admin: 08/10/21 08:37 Dose: 0.5 mg Documented by: ALYSE Aspirin (Aspirin Enteric Coated 81 Mg Tablet.) 81 mg PO DAILY [facility] Last Admin: 08/10/21 08:38 Dose: 81 mg Documented by: ALYSE Doxycycline Hyclate (Doxycycline Hyclate 100 Mg Tablet) 100 mg PO Q12H [facility] Last Admin: 08/10/21 13:32 Dose: 100 mg Documented by: ALYSE Enoxaparin Sodium (Enoxaparin Sodium 40 Mg/0.4 Ml Syringe) 40 mg SUBCUT Q24H [facility] Last Admin: 08/09/21 17:17 Dose: 40 mg Documented by: ALYSE Gabapentin (Gabapentin 400 Mg Capsule) 800 mg PO TID [facility] Last Admin: 08/10/21 08:38 Dose: 800 mg Documented by: ALYSE Guaifenesin (Guaifenesin 100 Mg/5 Ml Liquid) 5 ml PO Q6H PRN PRN Reason: Cough Last Admin: 08/09/21 20:17 Dose: 5 ml Documented by: ROMAIN Methylprednisolone Sodium Succinate (Methylprednisolone Sod Succ 125 Mg/2 Ml Vial) 60 mg IVPUSH Q8H [facility] Last Admin: 08/10/21 08:38 Dose: 60 mg Documented by: ALYSE Morphine Sulfate (Morphine Sulfate Immed Release 15 Mg Tablet) 15 mg PO Q6H PRN PRN Reason: Pain (Scale Score 4-6) Last Admin: 08/10/21 08:38 Dose: 15 mg Documented by: ALYSE Nitroglycerin (Nitroglycerin 0.4 Mg Tab.Subl) 0.4 mg SUBLINGUAL Q5MX3 PRN PRN Reason: Chest Pain Last Admin: 08/04/21 12:53 Dose: 0.4 mg Documented by: ANALISA Omeprazole (Omeprazole 20 Mg Capsule.Dr) 20 mg PO BID@0630,1630 [facility] Last Admin: 08/10/21 06:28 Dose: 20 mg Documented by: ROMAIN Ondansetron HCl (Ondansetron Hcl 4 Mg/2 Ml Vial) 4 mg IVPUSH Q8H PRN PRN Reason: Nausea and Vomiting Last Admin: 08/05/21 04:21 Dose: 4 mg Documented by: CAYDEN Pharmacy Consult (Consult Rx Perform Med Rec) 1 each MISCELLANE ONCE PRN PRN Reason: Consult order Sodium Chloride (0.9 % Sodium Chloride Flush 3 Ml Syringe) 3 ml IVFLUSH QSHIFT [facility] Last Admin: 08/10/21 08:39 Dose: 3 ml Documented by: ALYSE Labs CBC & Chem 7: 08/05/21 06:38 08/09/21 04:16 Microbiology Microbiology Results: Microbiology 08/04/21 14:42 Blood Culture - Final Blood - Venous No growth after 5 days. 08/04/21 12:43 Blood Culture - Final Blood - Venous No growth after 5 days. Assessment and Plan Assessment and Plan: 61-year-old female with history of ild, smoker, recent COVID pneumonia, came to the hospital because of chest pain or shortness of breath admission was called because of chest pain and right-sided heart failure workup. 1. Chest pain: Improving, abnormal EKG, troponin flat CTa-seems negative for pulmonary embolism but has question of diffuse inte rstitial lung disease versus postviral changes. Cardiology evaluation -thought thought to be atypical cardiac pain, echo : The left ventricular systolic function is normal.? The visually estimated ejection fraction is between 60-65%. ? - Moderately increased right ventricular cavity size.? There is? normal right ventricular systolic function. Distal part of right ventricular free wall appears hypokinetic. ? - No obvious valvular pathology seen on this study.? - The pulmonary artery systolic pressure is normal. Continue aspirin,? lipid panel LDL is around 70. 2. Probable CHF question right-sided heart failure will use small dose lasix -less likely significant chf. 3. Acute hypoxemic respiratory failure secondary to CHF versus IL D :? Continue supportive care as above Shortness of breath seems to be improving, still on 3 L oxygen Still on IV steroids, pulmonary follow-up pending 4.? chronic opioid use: She says that she has already taper down to morphine small dose 15 mg and gabapentin for pain, continue that for now. DVT prophylaxis with subQ Lovenox. Quality Stroke Does the patient have a stroke diagnosis?: No VTE Prior VTE?: No VTE Risk Level:: Medical - moderate - high VTE Device Contraindication: N/A - Device Ordered VTE Drug Contraindication: N/A - Med Ordered
[2021-08-10] MEDS: guaiFENesin 100 MG/5 ML LIQUID PO (14:39)
[2021-08-10] MEDS: predniSONE 20 MG TABLET 60 MG PO (14:49)
--- NOTE | 2021-08-10 15:04 | PM.PNPUL ---
Subjective Subjective Date of Service: 08/10/21 Principal diagnosis: Hypoxemia Interval history: 61-year-old lady with underlying opioid dependence, congestive heart failure and new diagnosis of air LD admitted with worsening hypoxemia. Patient has been empirically treated with systemic glucocorticoids and now is improving slowly. At this time she is not interested in proceeding with open lung biopsy. Objective Data Labs CBC & Chem 7: 08/05/21 06:38 08/09/21 04:16 Microbiology Microbiology Results: Microbiology 08/04/21 14:42 Blood - Venous Blood Culture - Final No growth after 5 days. 08/04/21 12:43 Blood - Venous Blood Culture - Final No growth after 5 days. Review of Systems Cardiovascular: Reports dyspnea on exertion Respiratory: Reports dyspnea on exertion Physical Exam Vital Signs: Vital Signs: Last Vital Signs Temp 98.0 F 08/10/21 11:47 Pulse 71 08/10/21 11:47 Resp 16 08/10/21 11:47 BP 119/75 08/10/21 11:47 Pulse Ox 97 08/10/21 11:47 Body Mass Index 24.7 Const: General: no acute distress, alert and awake Eyes: Sclerae: sclerae normal EOM: EOMs intact bilaterally Neck: Neck: Yes no lymphadenopathy, Yes trachea midline and Yes supple Resp: Effort & Inspection: normal respiratory effort and no respiratory distress Auscultation: crackles (Fine inspiratory) Cardio: Rate: regular rate Rhythm: regular rhythm Heart sounds: no gallops, no murmurs and no rubs GI: Palpation (GI): Soft to palpation and Other GI palpation findings present ( Nontender) Auscultation: normal bowel sounds Extrem: General: Yes no pedal edema, No clubbing and No cyanosis Procedures Date of Service Date of Service: 08/10/21 Assessment and Plan Assessment and plan (1) Respiratory failure: Status: Acute Assessment and Plan: Impression: 61-year-old lady admitted with hypoxemia, now with new diagnosis of while the with positive FLOWER, likely connective tissue disease-related. Improving slowly with systemic glucocorticoids. Patient is not particularly interested in proceed with open lung biopsy, also she has had significant dose of systemic glucocorticoids surgical biopsy at this time may have distorted lung architecture. Recommendation: Would suggest started on prednisone 60 mg daily for the next months and an outpatient follow-up the with pulmonary service with in 2 weeks after discharge. Further antibody testing for possible underlying rheumatologic process is pendin. (2) ILD (interstitial lung disease): Status: Acute Time Spent With Patient Time: Total time spent is greater than 50% in coordination of care (as documented) at patient's floor/unit and/or counseling patient: Time with patient: 25 - 35 minutes Progress Note: Quality Stroke Does the patient have a stroke diagnosis?: No
--- NOTE | 2021-08-10 15:07 | PM.DS ---
DS: Providers Provider Date of Service: 08/10/21 Date of admission: 08/04/21 16:54 Date of discharge: 08/10/21 Primary care physician: VARSHA Mancuso- Consults: 08/05/21 07:57 Consult to Cardiology Routine Consulting Provider: Bryan Barber Reason for consultation: Chest pain /chf Has provider been notified: No 08/05/21 08:02 Consult to Pulmonology Routine Consulting Provider: Glynn Luis Reason for consultation: acute hypoxeic respiratory failure /ILD vs pulm htn related right side chf DS: Diagnosis Discharge Diagnosis (1) Respiratory failure: Status: Acute DS: Summary Hospital Course Hospital Course: 61-year-old female with multiple medical issues including I LD, long-term opioid use, history of COVID pneumonia, smoker- Patient came to the hospital because of recent chest pain started on Tuesday-when she was at green party of her daughter and she said it was very stressful also situation for her. Progressively afterwards she started to have short of breath, has some cough but no significant sputum. In addition patient said the chest pain was 3-10, stabbing type, nonradiating left-sided, she said it go to worse with exertion and gets better with resting, in addition she says that the chest pain says around 1 hour when it comes. She received Lasix nitro and aspirin in the emergency room she says her breathing seems much better as well as chest chest pain is also improving EKG shows ST changes in more prominnet anterio lateral area rather than lateral area Lab imaging EKG reviewed:? Patient case was discussed by the ED physician with Cardiology and recommendation:? Continue aspirin statin and admit patient for CHF, chest pain. Troponin seems to be flat CTA shows diffuse lung disease question I LD versus postviral changes. hopsital course: Patient came with shortness of breath -treated for I LD exacerbation: Started on IV steroids, of breath seems to be improving still has somewhat short of breath, will arrange home oxygen and will go home p.o. steroids, continue PPIs for GI prophylaxis. Pulmonary recommended one month the prednisone supply, patient is to follow up with Pulmonary for further management. Patient will go home with home oxygen, home oxygen evaluation added. Patient was initially had eleavted trops , chest tightness -seen by cardiology:also thought have right-sided ventricular strain ,Less likely from LAD territory ischemia, echo done : treated with IV Lasix, 1 shortness of breath improving, Lasix was stopped. it seems Elevated heart enzymes and congestion was thought to be related ILD, stop asa,we will give small dose lasix every other day until follow up with pcp. Echo out patiently in 3months . current echo shows:preserved LVEF at 60-65% but right ventricle size is moderately increased.? No evidence of pulmonary hypertension reviewed by cardio. Also consider outpatient cardiology follow-up as per PCP, cardiology may arrange their own appointment. Patient go home with VNA. Above management discussed with the patient in detail length she understand and in agreement with the above plan, time spent 50 minutes and 50% time spent on counseling. Significant findings: As above. Procedures performed: None. Treatment and response: As above. Complications: None. Time Spent with Patient Time attestation: Total time spent providing and/or coordinating discharge services: Discharge coordination time: Greater than 30 minutes Quality: Stroke Does the patient have a stroke diagnosis?: No Physical Exam Vital Signs: Vital Signs: Last Vital Signs Temp 98.0 F 08/10/21 11:47 Pulse 71 08/10/21 11:47 Resp 16 08/10/21 11:47 BP 119/75 08/10/21 11:47 Pulse Ox 97 08/10/21 11:47 Body Mass Index 24.7 Alert.?somewhat an xious,? not in dis tress.? Eyes: Pupi ls equal, round an d reactive to ligh t.? Sclera nonicte eufemia.? ENT: Pharynx normal.? Moist mu cous membranes. cv s: rrr, [id number] res:? Air entry fa ir ,no wheezing , few dry scattered rales abd: no rebo und or guarding ,n t, bs present. ext pulses present , no cyanosis ,Gait well balanced well coordinated. neur o: axo3 , nonfocal . Discharge Plan Discharge Patient Disposition: Home Health Service Discharge Diagnosis: Acute hypoxemic respiratory failure secondary to COVID pneumonia, mild right sided heart failure sec to ILD. Referrals: Parul BOLTON [Outside] - 1 Day ([facility] ) Maximilian Mae FNP-BC [Primary Care Provider] - 1 Week Glynn Luis MD [Physician] - 1 Week (follow up in 2weeks) Discharge Medications: New prednisone 20 mg Tablet 60 mg PO DAILY Qty: 90 RF: 0 omeprazole 20 mg Capsule,Delayed Release(Dr/Ec) 20 mg PO BID@0630,1630 Qty: 60 RF: 0 furosemide [Lasix] 20 mg tablet 20 mg PO Q OTHER DAY Qty: 14 RF: 0 Continued (DME) nebulizer and compressor Device See Rx Instructions .ROUTE .MEDSUPPLY Qty: 1 RF: 0 dextroamphetamine-amphetamine 30 mg tablet 1 tab PO DAILY PRN (Reason: adhd) RF: 0 morphine 15 mg tablet 15 mg PO Q6H PRN (Reason: Pain (Scale Score 4-6)) RF: 0 albuterol sulfate 0.63 mg/3 mL solution for nebulization 0.63 mg inhalation QID PRN (Reason: shortness of breath or wheezing) Qty: 75 RF: 0 albuterol sulfate 90 mcg/actuation HFA aerosol inhaler 1 inh inhalation QID PRN (Reason: shortness of breath or wheezing) Qty: 8.5 RF: 0 gabapentin 400 mg capsule 800 mg PO TID RF: 0 alprazolam 2 mg tablet 0.5 mg PO BEDTIME RF: 0 Discontinued ibuprofen 200 mg tablet 200 mg PO Q6H PRN (Reason: Pain (Scale Score 1-3)) RF: 0 Discharge Orders: Discharge Order (Routine); Ordered 08/10/21 Ordered By: Lucrecia Gann Diet: advance to usual diet Activity on Discharge: As tolerated Stand Alone Forms: Patient Portal Discharge page Care Plan Goals: Patient came with shortness of breath -treated for I LD exacerbation: Started on IV steroids, of breath seems to be improving still has somewhat short of breath, will arrange home oxygen and will go home p.o. steroids, continue PPIs for GI prophylaxis. Patient was initially also thought have right-sided chf : treated with IV Lasix, 1 shortness of breath improving, Lasix was stopped. She she seen by Cardiology: Elevated heart enzymes and congestion was thought to be related ILD, we will give small dose lasix every other day until follow up with pcp. Echo out patiently in 3months . Also consider outpatient cardiology follow-up as per PCP, cardiology may arrange their own appointment. Health Concerns: as above. Plan of Treatment: As above. Assessment: As above.
[2021-08-10 15:46] LABS: Scleroderma 70 Antibody <1.0 NEG AI (<1.0 NEG)
[2021-08-10 15:55] VITALS: BP 140/69; PULSE 62; RESP 18; TEMP 36.6; O2SAT 98
[2021-08-10 16:59] VITALS: PULSE 75; PULSE 82; PULSE 93; O2SAT 88; O2SAT 91; O2SAT 95
--- NOTE | 2021-08-10 17:06 | MHC.CM.PN ---
IMM 08/10/21, PT DISCHARGING THIS EVENING W/[facility], REFERRAL TO [facility] AND MOST LIKELY NEW HOME O2 W/[facility], PT AWAITING HOME O2 EVAL AND O2 WILL BE SET UP BY RESPIRATORY IF PT QUALIFIES, SISTER FOR TRANSPORT.
[2021-08-11 14:06] LABS: Myeloperoxidase Antibody <1.0 AI; Proteinase 3 PR3 Antibodies <1.0 AI
[2021-08-12 14:22] LABS: Anti-Centromere B Antibodies <1.0 NEG AI (<1.0 NEG)
[2021-08-14 11:06] LABS: DNAds, Crithidia Antibody Negative (Negative)
[2021-08-21 16:07] LABS: Asperg fumigatus Precip Abs NEGATIVE (NEGATIVE); Micropoly faeni Abs NEGATIVE (NEGATIVE); Pigeon serum Abs NEGATIVE (NEGATIVE); Saccharo pora viridis Abs NEGATIVE (NEGATIVE); Thermo candidus Abs NEGATIVE (NEGATIVE); Thermoa vulgaris #1 NEGATIVE (NEGATIVE)
[2021-08-24 11:53] LABS: Antibody to SS-A Antigen <1.0 NEG; Antibody to SS-B Antigen <1.0 NEG
[2021-08-24 11:54] LABS: Anti DNA DS Antibody <1
[2021-08-24 11:55] LABS: EJ Autoantibodies Not Detected; JO-1 Antibody <1.0 NEG; MI 2 Autoantibodies Not Detected; PL 12 Autoantibodies Not Detected; PL 7 Autoantibodies Not Detected
[2021-08-24 11:56] LABS: OJ Autoantibodies Not Detected
== END 2021-08-10 19:00 | disposition home health service (06) | DRG 196 ==
LOC: HO.ED 15:39 → HO.EDOVER 17:06 → HO.S3 19:58
PROVIDERS: Hospitalist; Admitting Provider Internal Medicine; Emergency Provider Emergency Medicine; PCP Nurse Practitioner Family; Visit Provider Internal Medicine
DX: J84.9 Interstitial pulmonary disease, unspecified (principal); J96.21 Acute and chronic respiratory failure with hypoxia; F11.20 Opioid dependence, uncomplicated; G89.4 Chronic pain syndrome; Z86.16 Personal history of COVID-19; F17.210 Nicotine dependence, cigarettes, uncomplicated; Z71.6 Tobacco abuse counseling; Z20.822 Contact with and (suspected) exposure to COVID-19; Z79.899 Other long term (current) drug therapy
CPT/HCPCS: 0241U; 36415; 71045; 71275; 80048; 80061; 82164; 82785; 83880; 84443; 84484; 85025; 85027; 85379; 85652; 86021; 86038; 86039; 86200; 86225; 86235; 86255; 86331; 86606; 86609; 86769; 87040; 87389; 93005; 93306; 94640; 96374; 99285; J1200; J1650; J1940; J2405; J2930; Q9967

== ENCOUNTER → 2021-08-17 13:08 | Outpatient (BNVA) | payer MEDICARE, SELFPAY | PROVIDERS: PCP Nurse Practitioner Family; Visit Provider Anesthesiology | DX: Z51.81 Encounter for therapeutic drug level monitoring (principal); G90.521 Complex regional pain syndrome I of right lower limb; G89.4 Chronic pain syndrome; Z79.891 Long term (current) use of opiate analgesic | CPT/HCPCS: 99212 ==

== ENCOUNTER → 2021-08-21 11:28 | Outpatient (BNVA) | payer MEDICARE, MEDICAID, SELFPAY | PROVIDERS: PCP Nurse Practitioner Family; Visit Provider Internal Medicine Pulmonary Disease | DX: J84.9 Interstitial pulmonary disease, unspecified (principal); Z99.81 Dependence on supplemental oxygen | CPT/HCPCS: 99212 ==

== ENCOUNTER → 2021-09-21 13:04 | Outpatient (BNVA) | payer MEDICARE, MEDICAID, SELFPAY | PROVIDERS: PCP Nurse Practitioner Family; Visit Provider Anesthesiology | DX: G90.521 Complex regional pain syndrome I of right lower limb (principal); G89.4 Chronic pain syndrome; M87.17 Osteonecrosis due to drugs, ankle, foot and toes; T40.2X5A Adverse effect of other opioids, initial encounter; K58.1 Irritable bowel syndrome with constipation; I50.9 Heart failure, unspecified; F41.8 Other specified anxiety disorders; F17.210 Nicotine dependence, cigarettes, uncomplicated; Z79.891 Long term (current) use of opiate analgesic | CPT/HCPCS: 99212 ==

== ENCOUNTER → 2021-10-19 09:53 | Outpatient (BNVA) | payer MEDICARE, MEDICAID, SELFPAY | PROVIDERS: PCP Nurse Practitioner Family; Visit Provider Anesthesiology | DX: Z51.81 Encounter for therapeutic drug level monitoring (principal); G90.521 Complex regional pain syndrome I of right lower limb; G89.4 Chronic pain syndrome; Z79.891 Long term (current) use of opiate analgesic | CPT/HCPCS: 99212 ==

== ENCOUNTER → 2021-10-29 15:18 | Outpatient (REF) | payer MEDICARE, MEDICAID, SELFPAY ==
--- NOTE | 2021-10-29 15:27 | CA_ITS ---
Transthoracic Echocardiogram Patient (Last, First, Middle): Amna Mcfadden E Gender: Female Date of : 1960 Age: 61 Procedure Date: 10/29/2021 Procedure Type: Transthoracic Echocardiogram Location: OP Height: 149.86 cm Weight: 62.6 kg BSA: 1.57 m2 Heart Rate: bpm BP: 120 / 80 mmHg Cmm Programmer: YR/NIGEL Referring MD: Bryan Barber MD Symptoms: I51.7 - Cardiomegaly Study Quality: Good ECG Rhythm: Sinus tachycardia Conclusions: - The left ventricular systolic function is normal. The visually estimated ejection fraction is between 55-60%. - Mildly increased right ventricular cavity size. Findings Left Ventricle Normal left ventricular cavity size. The left ventricular systolic function is normal. The visually estimated ejection fraction is between 55-60%. Right Ventricle Mildly increased right ventricular cavity size. There is normal right ventricular systolic function. TAPSE 2.2cm. Tricuspid Valve There is trace tricuspid valve regurgitation. The pulmonary artery systolic pressure is normal. Venous The inferior vena cava is normal in size and collapses greater than 50% with inspiration. Pericardium/Pleural There is no evidence of pericardial effusion. Prior Study Comparison Changes noted compared to prior study dated: 08/05/2021. Improved RV size. Measurements 2D Linear Measurements IVSd: 0.91 0.6-0.9/0.6-1.0 cm LVIDd: 4.06 3.9-5.3/4.2-5.9 cm LVIDd Index: 2.59 2.4-3.2/2.2-3.1 cm/m2 LVIDs: 2.66 2.0-3.6 cm LVPWd: 0.88 0.7-1.1 cm LA Diam: 3.60 2.7-3.8/3.0-4.0 cm LAIDs Index: 2.29 1.5-2.3 cm/m2 LV Mass: 139.04 67-162/88-224 g LV Mass Index: 88.56 43-95/49-115 g/m2 Right Ventricle TAPSE (mm): 2.19 TVS' Silviano: 12.70 Tricuspid Valve TR Pk Silviano: 2.05 TR Pk Grad: 17.00 RA Press: 3.00 RVSP: 20.00 Updated in Other Vendor System with Status of Final Bryan Barber MD electronically signed on 10/30/2021 12:22:00 PM with status of Final
== END ==
LOC: HO.CARD 15:18
PROVIDERS: PCP Nurse Practitioner Family; Visit Provider Internal Medicine
DX: I51.7 Cardiomegaly (principal)
CPT/HCPCS: 93308

== ENCOUNTER → 2021-11-03 14:03 | Outpatient (BNVA) | payer MEDICARE, MEDICAID, SELFPAY | PROVIDERS: PCP Nurse Practitioner Family; Referring Provider Nurse Practitioner Family; Visit Provider Internal Medicine | DX: I51.7 Cardiomegaly (principal); I27.81 Cor pulmonale (chronic); J84.9 Interstitial pulmonary disease, unspecified | CPT/HCPCS: 93005; 99212 ==

== ENCOUNTER 2021-11-05 14:56 | Outpatient (REF) | payer MEDICARE, MEDICAID, SELFPAY ==
--- NOTE | ~2021-11-05 | CT_ITS ---
EXAMINATION: CT CHEST WITHOUT CONTRAST CLINICAL INFORMATION: Interstitial pulmonary disease. COMPARISON: CT angiography 08/04/2021 TECHNIQUE: Multidetector volumetric CT imaging of the chest was done. Axial MIP volume rendering provided. Sagittal and coronal reformatted images were obtained. This CT examination was performed using dose optimization techniques as appropriate, variously including the following: *Automated exposure control *Adjustment of mA and/or kV according to patient size (this includes techniques or standardized protocols for targeted exams where dose is matched to indication/reason for exam; i.e. extremities or head) *Use of iterative reconstruction technique DLP: 111 mGy-cm FINDINGS: PRO SHOP ATTENDANT: Well-inflated lungs with increased interstitial markings in both lungs. LUNGS: Previously seen diffuse interstitial lung disease has significantly improved at this time. There are residual areas of interstitial thickening and subpleural honeycombing in both upper lobes anterior segments. There is no acute consolidation, pulmonary nodule or mass seen. There is a 1.3 x 0.8 cm scar right lung apex axial image 10/08, previously seen apical thick scar measured 1.6 x 0.8 cm. MEDIASTINUM: The thyroid lobes are symmetrical and normal. The central trachea and the bronchi are widely patent. Heart size and the great vessels are normal caliber. There are small shotty lymph nodes in the pretracheal space. No pericardial effusion seen. PLEURA: There is no pleural effusion. No pleural mass or thickening. AXILLA: No lymphadenopathy. UPPER ABDOMEN: The visualized liver, spleen, pancreas, and bilateral adrenal glands are unremarkable. No radiopaque gallstone seen. OSSEOUS STRUCTURES: There is no aggressive lytic or sclerotic process seen. CT/CT chest wo con IMPRESSION: Interval significant improvement in diffuse interstitial lung disease from 08/04/2021. Right apical thick scar or lesion has improved in size, as well. No abnormal mediastinal adenopathy seen. Fleischner guidelines were followed.
== END 2021-11-05 14:57 | disposition home or self-care (01) ==
LOC: HO.CT 14:56
PROVIDERS: PCP Nurse Practitioner Family; Visit Provider Internal Medicine Pulmonary Disease
DX: J84.9 Interstitial pulmonary disease, unspecified (principal)
CPT/HCPCS: 71250

== ENCOUNTER → 2021-11-18 13:28 | Outpatient (BNVA) | payer MEDICARE, MEDICAID, SELFPAY | PROVIDERS: PCP Nurse Practitioner Family; Visit Provider Anesthesiology | DX: G90.521 Complex regional pain syndrome I of right lower limb (principal); G89.4 Chronic pain syndrome; Z79.891 Long term (current) use of opiate analgesic | CPT/HCPCS: 99212 ==

== ENCOUNTER → 2021-12-01 14:49 | Outpatient (BNVA) | payer MEDICARE, MEDICAID, SELFPAY | PROVIDERS: PCP Nurse Practitioner Family; Visit Provider Internal Medicine Pulmonary Disease | DX: J84.9 Interstitial pulmonary disease, unspecified (principal); Z99.81 Dependence on supplemental oxygen | CPT/HCPCS: 99212 ==

== ENCOUNTER → 2021-12-14 16:11 | Outpatient (BNVA) | payer MEDICARE, MEDICAID, SELFPAY | PROVIDERS: PCP Nurse Practitioner Family; Visit Provider Anesthesiology | DX: Z51.81 Encounter for therapeutic drug level monitoring (principal); G90.521 Complex regional pain syndrome I of right lower limb; F11.20 Opioid dependence, uncomplicated; G89.4 Chronic pain syndrome | CPT/HCPCS: 99212 ==

== ENCOUNTER → 2022-01-20 14:03 | Outpatient (BNVA) | payer OTHER, MEDICARE, MEDICAID, SELFPAY | PROVIDERS: PCP Nurse Practitioner Family; Visit Provider Anesthesiology | DX: G90.521 Complex regional pain syndrome I of right lower limb (principal); G89.4 Chronic pain syndrome; J44.9 Chronic obstructive pulmonary disease, unspecified; I50.9 Heart failure, unspecified; I21.3 ST elevation (STEMI) myocardial infarction of unspecified site; M87.17 Osteonecrosis due to drugs, ankle, foot and toes; F17.210 Nicotine dependence, cigarettes, uncomplicated; F41.8 Other specified anxiety disorders; Z89.431 Acquired absence of right foot; Z79.52 Long term (current) use of systemic steroids; Z79.891 Long term (current) use of opiate analgesic | CPT/HCPCS: 99212 ==

== ENCOUNTER 2022-01-29 10:20 | Emergency (ER) | payer OTHER, SELFPAY ==
--- NOTE | ~2022-01-29 | XR_ITS ---
EXAMINATION: XR FOOT, RIGHT CLINICAL INFORMATION: Evaluate for osteomyelitis COMPARISON: Ankle of May 21, 2013 TECHNIQUE: 3 views of the right foot. FINDINGS: Patient is status post resections of the first through fifth toes at the metatarsophalangeal joint. There is some deformity of the third metatarsal head which could be related to postsurgical change/trauma. This is difficult to evaluate on the ankle study of May 21, 2013 but there did appear to be some deformity of the third metatarsal head on the single AP view of the ankle. There is some air within the soft tissues likely related to an ulcer overlying the region of the fourth metatarsal head on oblique view but appears to be within the soft tissues in the region of the third and fourth metatarsal heads. There is some callus or new bone formation also seen involving the fourth metatarsal head which may be posttraumatic with no definite destructive bony lesion with osteopenia being identified. There is some irregular periosteal reaction seen about the medial aspect of the first distal metatarsal with 2 rounded calcific densities about the plantar aspect of the distal first metatarsal which may be related to sesamoid bones. XR/XR foot RT min 3V IMPRESSION: Gas within the soft tissues about the region of the fourth metatarsal head without specific bony changes to suggest acute osteomyelitis.
[2022-01-29 10:31] VITALS: BP 166/100; PULSE 101; RESP 18; TEMP 36.6; O2SAT 97; BMI 27.8
--- NOTE | 2022-01-29 10:55 | ED.SKABFB ---
HPI - Skin/Abscess/Foreign Bdy General Chief complaint: Wound/Laceration Stated complaint: R foot infection Time Seen by Provider: 01/29/22 10:48 Source: patient Mode of arrival: ambulatory Limitations: no limitations Related Data Home Medications Medication Instructions Recorded Confirmed alprazolam 2 mg tablet 0.5 mg PO BEDTIME 09/24/20 01/28/22 dextroamphetamine-amphetamine 30 1 tab PO DAILY PRN 08/04/21 01/28/22 mg tablet calcium carbonate 300 mg (750 mg) 300 mg PO BID 09/17/21 01/28/22 chewable tablet (Tums E-X) methylcellulose (laxative) 500 mg 500 mg PO DAILY 09/17/21 01/28/22 tablet (Citrucel) Previous Rx's Medication Instructions Recorded albuterol sulfate 0.63 mg/3 mL 0.63 mg (3 mL) INHALATION QID PRN 02/18/21 solution for nebulization #75 ml nebulizer and compressor #1 ea 03/06/21 ondansetron 4 mg disintegrating 4 mg PO Q8H PRN 10 Days #30 tab 08/26/21 tablet prednisone 10 mg tablet See Rx Instructions PO DAILY 120 12/01/21 Days #195 tab albuterol sulfate 90 mcg/actuation 1 inh INHALATION QID PRN #8.5 g 12/11/21 aerosol inhaler morphine 15 mg immediate release 15 mg PO Q6H PRN 30 Days #120 tab 01/20/22 tablet gabapentin 400 mg capsule 800 mg PO TID 30 Days #180 cap 01/27/22 Allergies Allergy/AdvReac Type Severity Reaction Status Date / Time No Known Allergies Allergy Verified 01/28/22 16:38 [facility] Past Medical History Medical History (Updated 01/28/22 @ 16:39 by Maximilian Mae [facility]) ADHD Anxiety Chest pain Chronic idiopathic constipation Chronic pain syndrome Complex regional pain syndrome of right lower extremity Congestive heart failure (CHF) Constipation Depression IBS (irritable bowel syndrome) custodial (current) use of opiate analgesic Lymphadenopathy, mediastinal 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 Social History Social History Household Members: None Housing: Condominium Do you presently have visiting nurse or other home services: No Alcohol intake: never Patient Tobacco Use Status: Current everyday Tobacco user Tobacco use type: Cigarette Cigarettes Per Day: 1 Years Smoked: 30 Second Hand Smoke Exposure: No Advance Directives Date on File: 08/05/21 Patient : No service: No Current occupational status: disabled Physical Exam Vital Signs: Vital Signs: Last Vital Signs Temp 97.8 F 01/29/22 10:31 Pulse 101 H 01/29/22 10:31 Resp 18 01/29/22 10:31 BP 166/100 H 01/29/22 10:31 Pulse Ox 97 01/29/22 10:31 BMI result Body Mass Index 27.8 Discharge Plan Discharge Prescriptions: No Action (DME) nebulizer and compressor Device See Rx Instructions .ROUTE .MEDSUPPLY Qty: 1 0RF Rx Instructions: Use every eight hours or as needed for acute shortness of breath or wheezing ondansetron 4 mg tablet,disintegrating 4 mg PO Q8H PRN (Reason: nausea and vomiting) 10 Days Qty: 30 0RF albuterol sulfate 90 mcg/actuation HFA aerosol inhaler 1 inh inhalation QID PRN (Reason: shortness of breath or wheezing) Qty: 8.5 0RF gabapentin 400 mg capsule 800 mg PO TID 30 Days Qty: 180 0RF dextroamphetamine-amphetamine 30 mg tablet 1 tab PO DAILY PRN (Reason: adhd) 0RF albuterol sulfate 0.63 mg/3 mL solution for nebulization 0.63 mg inhalation QID PRN (Reason: shortness of breath or wheezing) Qty: 75 0RF calcium carbonate [Tums E-X] 300 mg (750 mg) tablet,chewable 300 mg PO BID 0RF Citrucel 500 mg tablet 500 mg PO DAILY 0RF alprazolam 2 mg tablet 0.5 mg PO BEDTIME 0RF Rx Instructions: 1/4 tablet prednisone 10 mg tablet See Rx Instructions PO DAILY 120 Days Qty: 195 0RF Rx Instructions: Take 3 tabs daily for 30 days, then Take 2 tabs daily for 30 days, then Take 1 tab daily for 30 days, then Take half a tab daily for 30 day morphine 15 mg tablet 15 mg PO Q6H PRN (Reason: pain) 30 Days Qty: 120 0RF Rx Instructions: PF per MA
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
[2022-01-29 11:16] LABS: MANUAL DIFF FLAG NO
[2022-01-29 11:18] LABS: Basophils Absolute Auto 0.1 X10*3/uL (0.0-0.2); Basophils Percent Auto 0.4 % (0-2); Eosinophils Absolute Auto 0.2 X10*3/uL (0.0-0.4); Eosinophils Percent Auto 1.4 % (0-4); Hematocrit 36.4 % (37.0-47.0); Hemoglobin 10.8 g/dl (12.0-16.0); Imm Gran Abs Auto 0.08 X10*3/uL (0.00-0.03); Imm Gran Pct Auto 0.5 % (0.0-0.4); Lymphocytes Absolute Auto 1.6 X10*3/uL (1.2-4.9); Lymphocytes Percent Auto 10.1 % (20-40); Mean Corpuscular HGB Conc 29.7 g/dl (31.0-35.0); Mean Corpuscular Hemoglobin 23.9 pg (27.0-33.0); Mean Corpuscular Volume 80.5 fL (80.0-98.0); Mean Platelet Volume 10.9 fL (9.4-12.3); Monocytes Absolute Auto 0.7 X10*3/uL (0.1-1.2); Monocytes Percent Auto 4.5 % (2-11); Neutrophils Absolute Auto 13.3 x10*3/uL (2.0-8.3); Neutrophils Percent Auto 83.1 % (45-73); Platelet Count 404 X10*3/uL (160-400); Red Blood Count 4.52 X10*6/uL (4.20-5.50); White Blood Count 16.1 X10*3/uL (4.8-10.8)
[2022-01-29 11:32] LABS: Lactic Acid 1.4 mmol/L (0.5-2.0)
[2022-01-29 11:37] LABS: Alanine Aminotransferase 12 U/L (0-31); Albumin Level 4.3 g/dL (3.5-5.0); Alkaline Phosphatase 86 U/L (39-117); Anion Gap 15 (12-20); Aspartate Amino Transferase 19 U/L (5-31); Bilirubin Direct 0.2 mg/dL (0.0-0.5); Bilirubin Total 0.4 mg/dL (0.0-1.0); Blood Urea Nitrogen 9 mg/dL (9-16); C Reactive Protein 1.08 mg/dL (< or = 0.50); Calcium 9.9 mg/dL (8.4-10.2); Carbon Dioxide 27 mmol/L (22-29); Chloride 101 mmol/L (96-108); Creatinine Clr Calc Pharmacy 60.1; Estimated Glomerular Filt Rate > 60; Glucose Random 103 mg/dL (60-115); Potassium 4.1 mmol/L (3.3-5.1); Sodium 139 mmol/L (135-145); Total Protein 7.3 g/dL (6.5-8.0)
[2022-01-29 11:47] LABS: COVID-19 Test Negative (Negative)
[2022-01-29 11:58] LABS: Erythrocyte Sedimentation Rate 23 MM/HR (0-20)
[2022-01-29] MEDS: cefTRIAXone sodium 1 GM in 0.9 % Sodium Chloride 50 ML IV (12:05)
== END 2022-01-29 12:53 | disposition home or self-care (01) ==
PROVIDERS: Emergency Provider Emergency Medicine; PCP Nurse Practitioner Family
DX: L97.519 Non-pressure chronic ulcer of other part of right foot with unspecified severity (principal); G89.29 Other chronic pain; F17.210 Nicotine dependence, cigarettes, uncomplicated; Z71.6 Tobacco abuse counseling; Z20.822 Contact with and (suspected) exposure to COVID-19; Z79.899 Other long term (current) drug therapy
CPT/HCPCS: 36415; 73630; 80048; 80076; 83605; 83735; 85025; 85652; 86140; 87071; 87077; 87186; 87205; 87635; 96365; 99283; 99284; J0696

== ENCOUNTER 2022-02-09 13:00 | Outpatient (REF) | payer OTHER, SELFPAY ==
--- NOTE | 2022-02-09 17:24 | PFT_ITS ---
INDICATION: IBD. SPIROMETRY: FEV1 to FVC of 86% with an FEV1 of 1.65 L, which is 78% predicted, and FVC of 1.92 L, which is 70% predicted. No significant response to bronchodilators noted. Maximum voluntary ventilation 85% predicted. LUNG VOLUMES: Total lung capacity 80% predicted with an expiratory reserve volume of 49% predicted. DIFFUSION CAPACITY: DLCO 41% predicted. COMPARISONS: None. INTERPRETATION: No obstructive nor restrictive ventilatory defects have been identified. No significant response to bronchodilators noted. Normal maximum voluntary ventilation. However, the patient does have a low normal total lung capacity suggesting the possibility of occult interstitial lung conditions and parenchymal lung disease. The patient also has a severe diffusion impairment, which could be secondary to the above. Need to also consider pulmonary vascular disease and should also correct for hemoglobin. Clinical correlation warranted. MD ALESSIO Hood/MANJIT / [id number]
== END 2022-02-09 13:01 | disposition home or self-care (01) ==
LOC: HO.RESP 13:00
PROVIDERS: PCP Nurse Practitioner Family; Visit Provider Internal Medicine Pulmonary Disease
DX: J84.9 Interstitial pulmonary disease, unspecified (principal)
CPT/HCPCS: 94060; 94727; 94729

== ENCOUNTER 2022-02-12 14:19 | Outpatient (RCR) | payer OTHER, SELFPAY | END 2022-06-29 13:43 | disposition home or self-care (01) | LOC: HO.WCC 14:19 | PROVIDERS: PCP Nurse Practitioner Family; Visit Provider Physician Assistant | DX: L97.512 Non-pressure chronic ulcer of other part of right foot with fat layer exposed (principal); T87.89 Other complications of amputation stump; M86.471 Chronic osteomyelitis with draining sinus, right ankle and foot; G90.521 Complex regional pain syndrome I of right lower limb; G62.9 Polyneuropathy, unspecified; Z89.421 Acquired absence of other right toe(s); Z87.891 Personal history of nicotine dependence; Z79.2 Long term (current) use of antibiotics; Z79.891 Long term (current) use of opiate analgesic | CPT/HCPCS: 11042; 97597; 99212; 99213 ==

== ENCOUNTER → 2022-02-17 13:18 | Outpatient (BNVA) | payer OTHER, SELFPAY | PROVIDERS: PCP Nurse Practitioner Family; Visit Provider Anesthesiology | DX: Z51.81 Encounter for therapeutic drug level monitoring (principal); F11.20 Opioid dependence, uncomplicated | CPT/HCPCS: 99211 ==

== ENCOUNTER → 2022-03-01 14:25 | Outpatient (BNVA) | payer OTHER, SELFPAY | PROVIDERS: PCP Nurse Practitioner Family; Visit Provider Internal Medicine Pulmonary Disease | DX: J84.9 Interstitial pulmonary disease, unspecified (principal); R06.00 Dyspnea, unspecified | CPT/HCPCS: 99212 ==

== ENCOUNTER → 2022-03-09 15:08 | Outpatient (BNVA) | payer OTHER, SELFPAY | PROVIDERS: PCP Nurse Practitioner Family; Referring Provider Nurse Practitioner Family; Visit Provider Internal Medicine | DX: J84.9 Interstitial pulmonary disease, unspecified (principal); I11.0 Hypertensive heart disease with heart failure; I50.9 Heart failure, unspecified; I27.81 Cor pulmonale (chronic); M87.17 Osteonecrosis due to drugs, ankle, foot and toes; F17.210 Nicotine dependence, cigarettes, uncomplicated; Z79.52 Long term (current) use of systemic steroids; Z79.891 Long term (current) use of opiate analgesic; Z79.899 Other long term (current) drug therapy | CPT/HCPCS: 99212 ==

== ENCOUNTER 2022-03-12 14:33 | Outpatient (REF) | payer OTHER, SELFPAY ==
--- NOTE | ~2022-03-12 | MR_ITS ---
EXAMINATION: MRI OF THE RIGHT FOOT WITHOUT AND WITH CONTRAST CLINICAL INFORMATION: Nonhealing wound osteomyelitis. Patient reports history of bunionectomy and amputation. COMPARISON: X-ray of the right foot 01/29/2022. TECHNIQUE: MRI of the right foot was performed before and after contrast. 6.5 mL of Gadavist given intravenously for the contrast portion of the exam. FINDINGS: There are postoperative changes related to amputation distal to level of the metatarsal heads involving all digits. Third digit: In the subcutaneous soft tissues overlying the distal end of the third metatarsal there is ill-defined decreased T1 increased T2 signal with heterogeneous enhancement. There is also scattered decreased T1 increased T2 signal throughout the distal end of the metatarsal extending from the neck to the head over approximately 1.5 cm proximal to distal. There is irregularity of the distal end of the bone. There is likely at least in part likely chronic and/or related to prior surgery. In the remaining digits there are postoperative changes with minimal if any abnormal signal in the overlying subcutaneous soft tissues and normal appearing bone signal. The remaining bones, joints, and soft tissues in the midfoot and visualized hindfoot are normal. MR/MR foot RT wo/w con IMPRESSION: Postoperative changes related to amputation distal to level of the metatarsals. Third digit: Given the combination of abnormality in the subcutaneous soft tissues in the distal end of the third metatarsal findings are most consistent with cellulitis and osteomyelitis. However, the findings are not entirely specific for osteomyelitis and could be related to associated bone contusion. However, favor osteomyelitis in the appropriate clinical setting.
== END 2022-03-12 14:34 | disposition home or self-care (01) ==
LOC: HO.MRI 14:33
PROVIDERS: Visit Provider Physician Assistant
DX: L97.512 Non-pressure chronic ulcer of other part of right foot with fat layer exposed (principal); G90.521 Complex regional pain syndrome I of right lower limb
CPT/HCPCS: 73720; A9585

== ENCOUNTER → 2022-03-17 15:01 | Outpatient (BNVA) | payer OTHER, SELFPAY | PROVIDERS: PCP Nurse Practitioner Family; Visit Provider Anesthesiology | DX: Z51.81 Encounter for therapeutic drug level monitoring (principal); F11.20 Opioid dependence, uncomplicated; G90.521 Complex regional pain syndrome I of right lower limb; G89.4 Chronic pain syndrome | CPT/HCPCS: 99212 ==

== ENCOUNTER → 2022-04-06 14:25 | Outpatient (BNVA) | payer OTHER, SELFPAY | PROVIDERS: PCP Nurse Practitioner Family; Visit Provider Internal Medicine Pulmonary Disease | DX: J84.9 Interstitial pulmonary disease, unspecified (principal); R06.00 Dyspnea, unspecified | CPT/HCPCS: 99212 ==

== ENCOUNTER → 2022-04-14 15:21 | Outpatient (BNVA) | payer OTHER, SELFPAY | PROVIDERS: PCP Nurse Practitioner Family; Visit Provider Anesthesiology | DX: Z79.899 Other long term (current) drug therapy (principal) ==

== ENCOUNTER → 2022-05-14 14:06 | Outpatient (BNVA) | payer OTHER, SELFPAY | PROVIDERS: PCP Nurse Practitioner Family; Visit Provider Nurse Practitioner Family | DX: Z51.81 Encounter for therapeutic drug level monitoring (principal); F11.20 Opioid dependence, uncomplicated | CPT/HCPCS: 99211 ==

== ENCOUNTER → 2022-06-15 14:02 | Outpatient (BNVA) | payer OTHER, SELFPAY | PROVIDERS: PCP Nurse Practitioner Family; Visit Provider Nurse Practitioner Family | DX: Z51.81 Encounter for therapeutic drug level monitoring (principal); F11.20 Opioid dependence, uncomplicated; G90.521 Complex regional pain syndrome I of right lower limb; G89.4 Chronic pain syndrome | CPT/HCPCS: 99212 ==

== ENCOUNTER 2022-07-08 15:08 | Outpatient (REF) | payer OTHER, SELFPAY ==
--- NOTE | ~2022-07-08 | MR_ITS ---
EXAMINATION: MR FOOT WITHOUT AND WITH CONTRAST, RIGHT CLINICAL INFORMATION: Osteomyelitis. COMPARISON: Most recent right foot MRI dated 03/12/2022. TECHNIQUE: Multisequence MR imaging of the right foot was obtained before and after the IV administration of 6 mL Gadavist contrast on a high-field strength scanner. FINDINGS: Soft tissue ulceration along the plantar aspect of the 3rd metatarsal head with skin thickening and postcontrast enhancement consistent with cellulitis. No evidence of abscess formation. There is interval increasing attenuation of the adjacent 3rd metatarsal head with prominent decreased T1 and increased T2 signal as well as postcontrast marrow enhancement and periosteal edema consistent with acute osteomyelitis. Findings have increased when compared to the prior MRI. Mild marrow edema within the 4th metatarsal head with minimal postcontrast enhancement which could represent early osteomyelitis in the appropriate clinical setting. No concerning lytic or blastic osseous lesion. Diffuse muscle atrophy. The visualized flexor and extensor tendons are grossly intact. Prominent dorsal subcutaneous edema and skin thickening consistent with cellulitis. MR/MR foot RT wo/w con IMPRESSION: Soft tissue ulceration and cellulitis at the plantar aspect of the 3rd metatarsal head without evidence of abscess formation. Underlying osteomyelitis within the 3rd metatarsal head which appears attenuated, increased in prominence when compared to the prior MRI. Mild edema and enhancement within the 4th metatarsal head which may be reactive or represent early osteomyelitis. Prominent dorsal subcutaneous edema and skin thickening consistent with cellulitis.
== END 2022-07-08 15:09 | disposition home or self-care (01) ==
LOC: HO.MRI 15:08
PROVIDERS: Visit Provider Internal Medicine Infectious Disease
DX: M86.9 Osteomyelitis, unspecified (principal)
CPT/HCPCS: 73720; A9585

== ENCOUNTER → 2022-07-14 14:58 | Outpatient (BNVA) | payer OTHER, SELFPAY | PROVIDERS: PCP Nurse Practitioner Family; Visit Provider Nurse Practitioner Family | DX: Z79.891 Long term (current) use of opiate analgesic (principal) | CPT/HCPCS: 99211 ==

== ENCOUNTER 2022-07-16 15:16 | Outpatient (REF) | payer OTHER, SELFPAY ==
--- NOTE | ~2022-07-16 | CT_ITS ---
EXAMINATION: CT CHEST WITHOUT CONTRAST CLINICAL INFORMATION: Interstitial pulmonary disease COMPARISON: CT chest 11/05/2021 TECHNIQUE: Multidetector volumetric CT imaging of the chest was done. Axial MIP volume rendering provided. Sagittal and coronal reformatted images were obtained. This CT examination was performed using dose optimization techniques as appropriate, variously including the following: *Automated exposure control *Adjustment of mA and/or kV according to patient size (this includes techniques or standardized protocols for targeted exams where dose is matched to indication/reason for exam; i.e. 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 LUNGS: The lungs are diffusely emphysematous. There is diffuse interstitial intralobular and interlobular prominence slightly more thickening than the previous study and honeycombing in both upper lobes and both lower lobe posterior segments suggestive of chronic interstitial lung disease. Mild ground-glass density seen throughout both upper and lower lobes There is a spiculated right apical lesion measuring 1.9 x 0.8 cm on axial image 10/11. Previously it measured 1.3 x 0.8 cm on axial image 11/11 on 11/05/2021. No large consolidation or mass seen. MEDIASTINUM: The thyroid lobes are symmetric and normal. The central trachea and bronchi are widely patent. Heart size and the great vessels are normal caliber. There is no pericardial effusion. Precarinal 1.5 cm lymph node is seen. PLEURA: There is no pleural effusion, thickening, or calcification seen. AXILLA: No abnormal size axillary lymph nodes seen. The chest wall is unremarkable. UPPER ABDOMEN: Visualized liver, spleen, pancreas and bilateral adrenal glands are unremarkable. No radiopaque gallstones seen. OSSEOUS STRUCTURES: No aggressive lytic or sclerotic process seen. There is mild degenerative disc changes with vacuum disc phenomena, mid and lower dorsal spine. CT/CT chest wo con IMPRESSION: Diffuse interstitial thickening and honeycombing as well as ground-glass density in both upper and lower lobe suggestive of chronic interstitial lung changes. No bronchiectasis or mass seen. There is a right apical density/scar which has gradually increased in size and now measures 1.9 x 1.1 x 0.8 cm. On the previous exam, it measured 1.3 x 0[address] prior to that measured 1.6 x 0.8 cm. Fleischner guidelines were followed.
== END 2022-07-16 15:17 | disposition home or self-care (01) ==
LOC: HO.CT 15:16
PROVIDERS: Visit Provider Internal Medicine Pulmonary Disease
DX: J84.9 Interstitial pulmonary disease, unspecified (principal)
CPT/HCPCS: 71250

== ENCOUNTER → 2022-07-20 14:58 | Outpatient (BNVA) | payer OTHER, SELFPAY | PROVIDERS: PCP Nurse Practitioner Family; Visit Provider Internal Medicine Pulmonary Disease | DX: J84.9 Interstitial pulmonary disease, unspecified (principal); R91.1 Solitary pulmonary nodule; F11.20 Opioid dependence, uncomplicated; I50.9 Heart failure, unspecified | CPT/HCPCS: 99212 ==

== ENCOUNTER → 2022-08-13 13:36 | Outpatient (BNVA) | payer OTHER, SELFPAY | PROVIDERS: PCP Nurse Practitioner Family; Visit Provider Nurse Practitioner Family | DX: K58.0 Irritable bowel syndrome with diarrhea (principal); R10.9 Unspecified abdominal pain | CPT/HCPCS: 99212 ==

== ENCOUNTER 2022-08-17 12:55 | Outpatient (REF) | payer OTHER, SELFPAY ==
[2022-08-17 14:32] LABS: Lipase 19 U/L (8-78)
[2022-08-17 14:44] LABS: TSH reflex Free T4 0.61 uIU/mL (0.32-4.0)
[2022-08-17 14:59] LABS: Folate 6.6 ng/mL (> or = 4.0); Vitamin B12 266 pg/mL (200-900)
[2022-08-18 11:08] LABS: Leukocytes Stool Qualitative NEGATIVE (NEGATIVE)
[2022-08-18 13:08] LABS: Adenovirus F 40/41 Not Detected (Not Detect.); Astrovirus Not Detected (Not Detect.); Campylobacter Not Detected (Not Detect.); Cryptosporidium Not Detected (Not Detect.); Cyclospora cayetanensis Not Detected (Not Detect.); E. coli EAEC Not Detected (Not Detect.); E. coli EPEC Not Detected (Not Detect.); E. coli ETEC Not Detected (Not Detect.); E. coli STEC Not Detected (Not Detect.); Entamoeba histolytica Not Detected (Not Detect.); Giardia lamblia Not Detected (Not Detect.); Norovirus GI/GII Not Detected (Not Detect.); Plesiomonas shigelloides Not Detected (Not Detect.); Rotavirus A Not Detected (Not Detect.); Salmonella Not Detected (Not Detect.); Sapovirus Not Detected (Not Detect.); Shigella sp./EIEC Not Detected (Not Detect.); Vibrio Not Detected (Not Detect.); Vibrio Cholerae Not Detected (Not Detect.); Yersinia enterocolitica Not Detected (Not Detect.)
[2022-08-18 14:00] LABS: CDiff Gene PCR NEGATIVE (Negative)
[2022-08-21 15:02] LABS: Vitamin D 25-OH, D2 <4 ng/mL; Vitamin D 25-OH, D3 16 ng/mL; Vitamin D 25-OH, Total 16 ng/mL (30-100)
[2022-08-25 14:26] LABS: Calprotectin, Fecal 48 mcg/g
[2022-08-27 08:51] LABS: Pancreatic Elastase-1 489 mcg/g
== END 2022-08-17 12:56 | disposition home or self-care (01) ==
LOC: HO.LAB 12:55
PROVIDERS: PCP Nurse Practitioner Family; Visit Provider Nurse Practitioner Family
DX: R19.7 Diarrhea, unspecified (principal); E55.9 Vitamin D deficiency, unspecified; R10.9 Unspecified abdominal pain
CPT/HCPCS: 36415; 82306; 82607; 82656; 82746; 83690; 83993; 84443; 87177; 87209; 87493; 87507; 89055; 99212

== ENCOUNTER → 2022-08-30 12:52 | Outpatient (REF) | payer OTHER, SELFPAY ==
--- NOTE | 2022-08-30 12:54 | CA_ITS ---
Transthoracic Echocardiogram Patient (Last, First, Middle): Amna Mcfadden E Gender: Female Date of : 1960 Age: 62 Procedure Date: 08/30/2022 Procedure Type: Transthoracic Echocardiogram Location: OP Height: 149.86 cm Weight: 63.5 kg BSA: 1.58 m2 Heart Rate: bpm BP: 160 / 92 mmHg Rotary Peel Oven Tender: NIGEL Referring MD: Bryan Barber MD Emergency Doctor: Sherif Jha MD Symptoms: I27.81 - Cor pulmonale (chronic) Study Quality: Adequate ECG Rhythm: Sinus Conclusions: - 1. Normal LV systolic function with grade 1 diastolic dysfunction 2. Normal cardiac valvular Doppler 3. Normal RV systolic pressure 4. No gross pericardial effusion Findings Left Ventricle Normal left ventricular size, thickness, and systolic function. The visually estimated ejection fraction is between 55-60%. Spectral Doppler is indicative of an impaired relaxation filling pattern. E/E prime ratio is <8, consistent with normal filling pressures. Evidence suggests grade I (mild) diastolic dysfunction. Right Ventricle Normal right ventricular cavity size and systolic function. Atria Both atria are normal in size. There is no evidence of interatrial shunt. Aortic Valve There is mild calcification of the aortic valve. There is no aortic valve stenosis. There is no aortic valve regurgitation. Mitral Valve There is mild anterior and posterior mitral leaflet thickening. There is mild mitral annular calcification. There is trace mitral valve regurgitation. There is no mitral valve stenosis. Pulmonic Valve The pulmonic valve was not well visualized. Tricuspid Valve Likely normal tricuspid valve structure and function. There is trace tricuspid valve regurgitation. The right ventricular systolic pressure is normal. The right ventricular systolic pressure is 18 mmHg. Normal right atrial pressure. There is no evidence of pulmonary hypertension. Great Vessels All visible segments of the aorta are normal in size. The pulmonary artery was not well visualized. Venous The inferior vena cava is normal in size and collapses greater than 50% with inspiration. Pericardium/Pleural There is no evidence of pericardial effusion. Prior Study Comparison Changes noted compared to prior study dated: 10/29/2021. RV size is normal on this study. Measurements 2D Linear Measurements IVSd: 0.92 0.6-0.9/0.6-1.0 cm LVIDd: 3.80 3.9-5.3/4.2-5.9 cm LVIDd Index: 2.41 2.4-3.2/2.2-3.1 cm/m2 LVIDs: 2.36 2.0-3.6 cm LVPWd: 0.81 0.7-1.1 cm LA Diam: 3.20 2.7-3.8/3.0-4.0 cm LAIDs Index: 2.03 1.5-2.3 cm/m2 LV Mass: 118.91 67-162/88-224 g LV Mass Index: 75.26 43-95/49-115 g/m2 LVOT Diam: 2.10 3.0+(-)1.3 cm 2D Systolic Function EF 4C: 56.70 >55% EF 2C: 60.10 >55% EF BiP: 58.50 >55% Mitral Valve MV Pk E: 0.56 MV PK A: 0.96 MV Decel Time: 158.00 E/A: 0.60 E'Lateral: 6.53 E'Medial: 4.24 E/E' Med: 13.20 E/E' Lat: 8.50 PHT: 46.00 MVA PHT: 4.78 Decel [place]: 3.52 Aortic Valve AoV Pk [place]: 1.37 AoV Mn Silv[place]: 1.02 AoV VTI: 0.27 AoV Pk Grad: 8.00 Aov Mn Grad: 5.00 MIAN Cont.VTI: 2.35 LVOT LVOT Pk [place]: 0.95 LVOT Mn [place]: 0.62 LVOT VTI: 0.18 LVOT Pk Grad: 4.00 LVOT Mn Grad: 2.00 LVOT Diam: 2.10 LVOT Area: 3.46 Diastolic Function MV Pk E: 0.56 MV Pk A: 0.96 E/A: 0.60 E'Medial: 4.24 E/E' Med: 13.20 E' Laterial: 6.53 E/E' Lat: 8.50 Right Ventricle TAPSE (mm): 20.70 TVS' [place]: 10.60 Tricuspid Valve TR Pk [place]: 1.94 TR Pk Grad: 15.00 RA Press: 3.00 RVSP: 18.00 Great Vessels Aorta Sinus of Valsalva: 3.50 2.0-3.[address] [place]: 2.72 1.7-3.4 cm Ao Asc: 3.10 2.1-3.4 cm Updated in Other Vendor System with Status of Final Sherif Jha MD electronically signed on 08/30/2022 7:11:36 PM with status of Final
== END ==
LOC: HO.CARD 12:52
PROVIDERS: PCP Nurse Practitioner Family; Visit Provider Internal Medicine
DX: I27.81 Cor pulmonale (chronic) (principal)
CPT/HCPCS: 93306

== ENCOUNTER 2022-09-07 09:26 | Outpatient (REF) | payer OTHER, SELFPAY ==
--- NOTE | ~2022-09-07 | PE_ITS ---
EXAMINATION: Fluorine-18 FDG PET/CT Scan CLINICAL INDICATION: Initial treatment management. Solitary pulmonary nodule. PROCEDURE: 61 minutes following the intravenous administration of 13.9 mCi of fluorine 18 FDG, images from the base of the skull to the mid thighs were obtained using a combined PET/CT scanner with CT scan based attenuation correction. No intravenous contrast was administered. Transverse, coronal, sagittal, and volume reconstruction projections were obtained. The patient's blood glucose as determined by a finger stick, was 72 mg/dl immediately prior to injection. The radiotracer was injected intravenously through left antecubital superficial vein, without any complications. Total CT exam dose-length product 680.33 mGy-cm * These CT images were obtained using dose optimization techniques as appropriate, variously including the following: Automated exposure control * Adjustment of mA and/or kV according to patient size (this includes techniques or standardized protocols for targeted exams where dose is matched to indication/reason for exam; i.e. extremities or head) * Use of iterative reconstruction technique COMPARISON: CT of the chest done on 07/16/2022. FINDINGS: NECK AND VISUALIZED HEAD: No metabolically active disease is present. THORAX: The index spiculated approximately 2 cm maximum dimension mass seen at right lung apex is not FDG avid, unchanged since prior study dated 07/16/2022. There are no FDG avid mediastinal or hilar lymphadenopathy present. The lung parenchyma shows persistent stable chronic changes of interstitial pulmonary fibrosis, similar to prior study. No evidence of any pleural or pericardial effusion present, unchanged. ABDOMEN AND PELVIS: Diffuse increase FDG avidity is noted within the fundus and proximal part of the body of the stomach with nonspecific underlying apparent mural thickening. Direct visualization is recommended. There are no perigastric lymphadenopathy. No metabolically active, FDG avid liver or adrenal or splenic lesion. Physiologic activities are noted within the kidneys and the bladder. MUSCULOSKELETAL: No FDG avid disease. Multilevel degenerative spondylosis related changes are noted at the thoracolumbar spine. VASCULAR: The infrarenal abdominal aorta shows calcific atherosclerotic disease without aneurysm formation. PET/PET CT fusion skull to thigh IMPRESSION: 1. The index approximately 2 cm maximum dimension spiculated mass seen at the right lung apex is not FDG avid. There are no FDG avid mediastinal or hilar lymphadenopathy or liver or abdominal disease. 2. Incidental note is made of diffuse increased FDG avidity within the fundus and proximal part of the body of the stomach with nonspecific underlying apparent mural thickening. Direct visualization of the stomach is recommended. No evidence of any perigastric FDG avid lymphadenopathy. 3. Evidence of interstitial pulmonary fibrosis seen on the nondiagnostic CT component of the study, appears similar to prior CT of the chest dated 07/16/2022.
== END 2022-09-07 09:27 | disposition home or self-care (01) ==
LOC: HO.PET 09:26
PROVIDERS: PCP Nurse Practitioner Family; Visit Provider Internal Medicine Pulmonary Disease
DX: Z13.89 Encounter for screening for other disorder (principal)

== ENCOUNTER → 2022-09-13 13:03 | Outpatient (BNVA) | payer OTHER, SELFPAY | PROVIDERS: PCP Nurse Practitioner Family; Referring Provider Nurse Practitioner Family; Visit Provider Internal Medicine | DX: I51.7 Cardiomegaly (principal); I27.81 Cor pulmonale (chronic); J84.9 Interstitial pulmonary disease, unspecified; I10 Essential (primary) hypertension | CPT/HCPCS: 99212 ==

== ENCOUNTER → 2022-09-14 12:58 | Outpatient (BNVA) | payer OTHER, SELFPAY | PROVIDERS: PCP Nurse Practitioner Family; Visit Provider Nurse Practitioner Family | DX: R19.7 Diarrhea, unspecified (principal); R10.84 Generalized abdominal pain | CPT/HCPCS: 99211; 99212 ==

== ENCOUNTER 2022-09-30 15:54 | Outpatient (REF) | payer OTHER, SELFPAY ==
[2022-09-30 16:49] LABS: Basophils Percent Auto 0.1 % (0-2); Hematocrit 39.5 % (37.0-47.0); Hemoglobin 12.3 g/dl (12.0-16.0); Imm Gran Abs Auto 0.11 X10*3/uL (0.00-0.03); Imm Gran Pct Auto 0.8 % (0.0-0.4); MANUAL DIFF FLAG SCAN; Mean Corpuscular HGB Conc 31.1 g/dl (31.0-35.0); Mean Corpuscular Hemoglobin 25.8 pg (27.0-33.0); Mean Platelet Volume 11.1 fL (9.4-12.3); Monocytes Absolute Auto 0.2 X10*3/uL (0.1-1.2); Monocytes Percent Auto 1.2 % (2-11); Neutrophils Absolute Auto 12.5 x10*3/uL (2.0-8.3); Neutrophils Percent Auto 90.9 % (45-73); Platelet Count 340 X10*3/uL (160-400); Red Blood Count 4.76 X10*6/uL (4.20-5.50); Red Cell Distribution Width 18.6 % (11.0-16.0); SCAN SMEAR FLAG 1; White Blood Count 13.7 X10*3/uL (4.8-10.8)
[2022-09-30 17:03] LABS: Blood Urea Nitrogen 6 mg/dL (9-16)
[2022-09-30 17:07] LABS: Alanine Aminotransferase 17 U/L (0-31); Albumin Level 4.1 g/dL (3.5-5.0); Alkaline Phosphatase 94 U/L (39-117); Anion Gap 18 (12-20); Aspartate Amino Transferase 15 U/L (5-31); Bilirubin Total 0.3 mg/dL (0.0-1.0); Blood Urea Nitrogen 6 mg/dL (9-16); Calcium 9.5 mg/dL (8.4-10.2); Carbon Dioxide 30 mmol/L (22-29); Chloride 92 mmol/L (96-108); Estimated Glomerular Filt Rate > 60; Glucose Random 108 mg/dL (60-115); Potassium 4.4 mmol/L (3.3-5.1); Sodium 136 mmol/L (135-145); Total Protein 6.8 g/dL (6.5-8.0)
[2022-09-30 17:27] LABS: SLIDE REVIEW VERIFIED
== END 2022-09-30 15:55 | disposition home or self-care (01) ==
LOC: HO.LAB 15:54
PROVIDERS: Absent Provider Internal Medicine; PCP Nurse Practitioner Family; Visit Provider Nurse Practitioner Family
DX: R10.11 Right upper quadrant pain (principal); L97.519 Non-pressure chronic ulcer of other part of right foot with unspecified severity
CPT/HCPCS: 36415; 80053; 84520; 85025

== ENCOUNTER 2022-10-01 09:04 | Outpatient (REF) | payer OTHER, SELFPAY ==
--- NOTE | ~2022-10-01 | CT_ITS ---
EXAMINATION: CT ABDOMEN AND PELVIS WITH CONTRAST CLINICAL INFORMATION: Abdominal pain. COMPARISON: CT abdomen and pelvis dated 10/23/2014. TECHNIQUE: Multidetector volumetric images were obtained from the superior aspect of the liver through the pubic symphysis following administration 85 mL of Omnipaque 350 intravenous contrast. Sagittal and coronal reformatted images were obtained on the technologist's workstation. Oral contrast: No This CT examination was performed using dose optimization techniques as appropriate, variously including the following: *Automated exposure control *Adjustment of mA and/or kV according to patient size (this includes techniques or standardized protocols for targeted exams where dose is matched to indication/reason for exam; i.e. extremities or head) *Use of iterative reconstruction technique DLP: 412 mGy-cm FINDINGS: LUNG BASES: There is bibasilar chronic interstitial disease with honeycombing, possibly UIP. LIVER, GALLBLADDER, AND BILIARY TREE: The liver is normal in size, shape, and attenuation. No focal hepatic lesion is seen. There is stable ectasia of the common bile duct, which measures 11 mm (3:28). The gallbladder is unremarkable, with no evidence of radiopaque gallstones, gallbladder wall thickening or obvious pericholecystic inflammatory change. PANCREAS: Unremarkable. SPLEEN: Unremarkable. ADRENAL GLANDS: Unremarkable. KIDNEYS AND URETERS: The kidneys are normal in size, shape and attenuation. No hydronephrosis, hydroureter or calculi seen. No perinephric stranding. BLADDER: Unremarkable. GASTROINTESTINAL TRACT: The small and large bowel are unremarkable. A 9 mm lipoma is incidentally noted within the duodenum (3:35). This is unchanged from 10/23/2014 (2:47). The appendix is unremarkable. ABDOMINAL WALL: There is a small fat-containing umbilical hernia. LYMPH NODES: Normal. VASCULAR: There is moderate aortoiliac atherosclerotic calcification. No abdominal aortic aneurysm or dissection is seen. PELVIC VISCERA: The uterus and adnexa are unremarkable. OSSEOUS STRUCTURES: There is multi-level marked lower thoracic and upper lumbar degenerative disc disease and spondylosis. In particular, at L1-L2, there is a 4 mm retrolisthesis. There is a stable mild T11 anterior wedge compression fracture. No acute or aggressive osseous abnormality is seen. CT/CT abdomen pelvis w IV con IMPRESSION: 1. There is stable ectasia of the common bile duct to 11 mm, without significant change from 10/24/2014. No significant intrahepatic biliary ductal dilatation is seen. No pancreatic or ampullary mass is noted. 2. No bowel obstruction, free intraperitoneal air or abscess is seen. There is no appendicitis or diverticulitis. 3. There is no abdominopelvic lymphadenopathy or free fluid. 4. No urinary calculus or obstructive uropathy is seen. 5. There are multi-level degenerative changes of the thoracolumbar spine. No aggressive osseous lesion is seen. Fleischner guidelines were followed.
[2022-10-01] MEDS: iohexoL 350 MG/ML 100 ML INFUS..BTL IV (12:10)
[2022-10-01] MEDS: Barium Sulfate Oral (Vanilla) 450 ML ORAL.SUSP 900 ML PO (12:12)
== END 2022-10-01 09:05 | disposition home or self-care (01) ==
LOC: HO.CT 09:04
PROVIDERS: PCP Nurse Practitioner Family; Visit Provider Nurse Practitioner Family
DX: R10.9 Unspecified abdominal pain (principal); R19.7 Diarrhea, unspecified
CPT/HCPCS: 74177; Q9967

== ENCOUNTER → 2022-10-04 13:11 | Outpatient (BNVA) | payer OTHER, SELFPAY | PROVIDERS: PCP Nurse Practitioner Family; Visit Provider Internal Medicine Pulmonary Disease | DX: R91.1 Solitary pulmonary nodule (principal); J84.9 Interstitial pulmonary disease, unspecified; Z99.81 Dependence on supplemental oxygen | CPT/HCPCS: 99212 ==

== ENCOUNTER 2022-10-07 15:24 | Outpatient (REF) | payer OTHER, SELFPAY ==
--- NOTE | ~2022-10-07 | XR_ITS ---
EXAMINATION: XR CHEST CLINICAL INFORMATION: Elevated white blood count COMPARISON: Chest radiograph 08/06/2021 PET/CT 09/07/2022, CT chest 07/16/2022 TECHNIQUE: 2 views of the chest were obtained. FINDINGS: Again noted is diffuse interstitial and reticular nodular changes throughout the lungs. Compared to the 08/06/2021 study, there is actually been significant improvement with decrease in airspace opacity. These findings were best characterized on prior chest CT that demonstrated diffuse interstitial thickening and honeycombing suggestive of chronic interstitial lung disease. No acute consolidations. No pleural effusions. No CHF. XR/XR chest 2V IMPRESSION: Chronic interstitial lung disease. No acute intrathoracic disease.
[2022-10-07 16:41] LABS: MANUAL DIFF FLAG NO
[2022-10-07 16:48] LABS: Basophils Percent Auto 0.1 % (0-2); Hematocrit 38.3 % (37.0-47.0); Hemoglobin 12.3 g/dl (12.0-16.0); Imm Gran Pct Auto 0.8 % (0.0-0.4); Lymphocytes Percent Auto 8.1 % (20-40); Mean Corpuscular HGB Conc 32.1 g/dl (31.0-35.0); Mean Corpuscular Hemoglobin 27.2 pg (27.0-33.0); Mean Corpuscular Volume 84.5 fL (80.0-98.0); Mean Platelet Volume 11.4 fL (9.4-12.3); Monocytes Absolute Auto 0.2 X10*3/uL (0.1-1.2); Monocytes Percent Auto 1.9 % (2-11); Neutrophils Absolute Auto 10.9 x10*3/uL (2.0-8.3); Neutrophils Percent Auto 89.1 % (45-73); Platelet Count 356 X10*3/uL (160-400); Red Blood Count 4.53 X10*6/uL (4.20-5.50); White Blood Count 12.3 X10*3/uL (4.8-10.8)
[2022-10-07 17:01] LABS: Alanine Aminotransferase 19 U/L (0-31); Alkaline Phosphatase 104 U/L (39-117); Anion Gap 18 (12-20); Aspartate Amino Transferase 15 U/L (5-31); Bilirubin Total 0.4 mg/dL (0.0-1.0); Blood Urea Nitrogen 8 mg/dL (9-16); Calcium 9.4 mg/dL (8.4-10.2); Carbon Dioxide 28 mmol/L (22-29); Estimated Glomerular Filt Rate > 60; Glucose Random 117 mg/dL (60-115); Potassium 4.6 mmol/L (3.3-5.1); Total Protein 6.9 g/dL (6.5-8.0)
[2022-10-07 17:44] LABS: Albumin Level 4.2 g/dL (3.5-5.0); Chloride 95 mmol/L (96-108); Sodium 136 mmol/L (135-145)
[2022-10-07 17:52] LABS: Appearance Urine Clear; Color Urine Yellow; Glucose Urine UA Negative (Negative); Leukocyte Esterase Urine Negative (Negative); Nitrite Urine Negative (Negative); PH 6.5 (5.0-9.0); Specific Gravity - Urine <= 1.005 (1.005-1.025); Urine Blood Negative (Negative); Urine Ketones Negative (Negative); Urine Protein Negative (Neg-Trace)
== END 2022-10-07 15:25 | disposition home or self-care (01) ==
LOC: HO.HMGCLDS 15:24
PROVIDERS: PCP Nurse Practitioner Family; Visit Provider Nurse Practitioner Family
DX: D72.829 Elevated white blood cell count, unspecified (principal)
CPT/HCPCS: 36415; 71046; 80053; 81003; 85025

== ENCOUNTER → 2022-10-15 15:28 | Outpatient (BNVA) | payer OTHER, SELFPAY | PROVIDERS: Visit Provider Nurse Practitioner Family | DX: Z51.81 Encounter for therapeutic drug level monitoring (principal); F11.20 Opioid dependence, uncomplicated | CPT/HCPCS: 99211 ==

== ENCOUNTER → 2022-10-18 13:22 | Outpatient (BNVA) | payer OTHER, SELFPAY | PROVIDERS: PCP Nurse Practitioner Family; Visit Provider Internal Medicine Pulmonary Disease | DX: J84.9 Interstitial pulmonary disease, unspecified (principal) | CPT/HCPCS: 94618; 99211 ==

== ENCOUNTER → 2022-10-26 13:21 | Outpatient (BNVA) | payer OTHER, SELFPAY | PROVIDERS: PCP Nurse Practitioner Family; Visit Provider Nurse Practitioner Family | DX: K59.04 Chronic idiopathic constipation (principal); K58.2 Mixed irritable bowel syndrome | CPT/HCPCS: 99212 ==

== ENCOUNTER → 2022-11-08 16:01 | Outpatient (BNVA) | payer OTHER, SELFPAY | PROVIDERS: PCP Nurse Practitioner Family; Visit Provider Nurse Practitioner Family | DX: G89.4 Chronic pain syndrome (principal); G90.521 Complex regional pain syndrome I of right lower limb; Z79.891 Long term (current) use of opiate analgesic | CPT/HCPCS: 99212 ==

== ENCOUNTER → 2022-11-17 14:22 | Outpatient (BNVA) | payer OTHER, SELFPAY | PROVIDERS: PCP Nurse Practitioner Family; Visit Provider Nurse Practitioner Family | DX: K58.2 Mixed irritable bowel syndrome (principal); K59.01 Slow transit constipation; Z79.899 Other long term (current) drug therapy | CPT/HCPCS: 99212 ==

== ENCOUNTER → 2022-12-07 15:58 | Outpatient (BNVA) | payer OTHER, SELFPAY | PROVIDERS: PCP Nurse Practitioner Family; Visit Provider Nurse Practitioner Family | DX: Z51.81 Encounter for therapeutic drug level monitoring (principal); G90.521 Complex regional pain syndrome I of right lower limb; M54.50 Low back pain, unspecified; M51.36 Other intervertebral disc degeneration, lumbar region; G54.6 Phantom limb syndrome with pain; G89.4 Chronic pain syndrome; Z79.891 Long term (current) use of opiate analgesic | CPT/HCPCS: 99212 ==

== ENCOUNTER → 2022-12-27 12:50 | Outpatient (BNVA) | payer OTHER, SELFPAY | PROVIDERS: PCP Nurse Practitioner Family; Visit Provider Nurse Practitioner Family | DX: K59.04 Chronic idiopathic constipation (principal); K58.2 Mixed irritable bowel syndrome | CPT/HCPCS: 99212 ==

== ENCOUNTER 2023-01-03 13:30 | Outpatient (REF) | payer OTHER, SELFPAY ==
--- NOTE | ~2023-01-03 | XR_ITS ---
EXAMINATION: XR THORACOLUMBAR SPINE CLINICAL INFORMATION: Thoracic spine pain. COMPARISON: None TECHNIQUE: AP, lateral and swimmer's views of the thoracic spine are submitted. FINDINGS: There is bony demineralization. Vertebral body heights are normal. There is a mild lower thoracic dextroscoliosis. There is mild degenerative disc disease at T8-T9, and moderate degenerative disc disease seen at T11-T12 and T12-L1. The remaining thoracic disc spaces are relatively well-maintained. No acute fracture or spondylolisthesis is seen. There is mild thoracic spondylosis. The posterior elements are intact. The paravertebral soft tissues are unremarkable. XR/XR thoracic spine 2V IMPRESSION: 1. There is a mild lower thoracic dextroscoliosis. 2. There is mild degenerative disc disease at T8-T9, and moderate degenerative disease is seen at T11-T12 and T12-L1. EXAMINATION: XR LUMBOSACRAL SPINE CLINICAL INFORMATION: Lumbar spondylosis, without myelopathy or radiculopathy. COMPARISON: Radiographs dated 08/09/2019 TECHNIQUE: AP, bilateral oblique and lateral (neutral, flexion and extension) views of the lumbar spine and lateral view of the lumbosacral junction. FINDINGS: There is bony demineralization. There is a mild lumbar levoscoliosis. Vertebral body heights are normal. At L1-L2, there is a 4 mm retrolisthesis. The remaining disc spaces are relatively well-maintained. No acute fracture or spondylolisthesis is seen. There is no instability with flexion or extension. The posterior elements are intact. No spondylolysis defect is seen. There is multi-level lumbar facet arthropathy. The paravertebral soft tissues are unremarkable. There are aortoiliac atherosclerotic calcifications. IMPRESSION: 1. There is moderate degenerative disc disease at L1-L2. 2. No acute fracture or spondylolisthesis is seen. 3. There is multi-level lumbar facet arthropathy. 4. There is a mild lumbar levoscoliosis.
--- NOTE | ~2023-01-03 | XR_ITS ---
EXAMINATION: XR THORACOLUMBAR SPINE CLINICAL INFORMATION: Thoracic spine pain. COMPARISON: None TECHNIQUE: AP, lateral and swimmer's views of the thoracic spine are submitted. FINDINGS: There is bony demineralization. Vertebral body heights are normal. There is a mild lower thoracic dextroscoliosis. There is mild degenerative disc disease at T8-T9, and moderate degenerative disc disease seen at T11-T12 and T12-L1. The remaining thoracic disc spaces are relatively well-maintained. No acute fracture or spondylolisthesis is seen. There is mild thoracic spondylosis. The posterior elements are intact. The paravertebral soft tissues are unremarkable. XR/XR lumbar spine 6V w bending IMPRESSION: 1. There is a mild lower thoracic dextroscoliosis. 2. There is mild degenerative disc disease at T8-T9, and moderate degenerative disease is seen at T11-T12 and T12-L1. EXAMINATION: XR LUMBOSACRAL SPINE CLINICAL INFORMATION: Lumbar spondylosis, without myelopathy or radiculopathy. COMPARISON: Radiographs dated 08/09/2019 TECHNIQUE: AP, bilateral oblique and lateral (neutral, flexion and extension) views of the lumbar spine and lateral view of the lumbosacral junction. FINDINGS: There is bony demineralization. There is a mild lumbar levoscoliosis. Vertebral body heights are normal. At L1-L2, there is a 4 mm retrolisthesis. The remaining disc spaces are relatively well-maintained. No acute fracture or spondylolisthesis is seen. There is no instability with flexion or extension. The posterior elements are intact. No spondylolysis defect is seen. There is multi-level lumbar facet arthropathy. The paravertebral soft tissues are unremarkable. There are aortoiliac atherosclerotic calcifications. IMPRESSION: 1. There is moderate degenerative disc disease at L1-L2. 2. No acute fracture or spondylolisthesis is seen. 3. There is multi-level lumbar facet arthropathy. 4. There is a mild lumbar levoscoliosis.
== END 2023-01-03 13:31 | disposition home or self-care (01) ==
LOC: HO.XRAY 13:30
PROVIDERS: PCP Nurse Practitioner Family; Visit Provider Nurse Practitioner Family
DX: M47.816 Spondylosis without myelopathy or radiculopathy, lumbar region (principal); M54.50 Low back pain, unspecified; M54.6 Pain in thoracic spine
CPT/HCPCS: 72070; 72114

== ENCOUNTER → 2023-01-06 15:30 | Outpatient (BNVA) | payer OTHER, SELFPAY | PROVIDERS: PCP Nurse Practitioner Family; Visit Provider Nurse Practitioner Family | DX: G90.521 Complex regional pain syndrome I of right lower limb (principal); M54.6 Pain in thoracic spine; M54.50 Low back pain, unspecified; M51.36 Other intervertebral disc degeneration, lumbar region; M47.816 Spondylosis without myelopathy or radiculopathy, lumbar region; G89.4 Chronic pain syndrome; Z79.891 Long term (current) use of opiate analgesic | CPT/HCPCS: 99212 ==

== ENCOUNTER 2023-01-20 11:09 | Outpatient (REF) | payer OTHER, SELFPAY ==
--- NOTE | ~2023-01-20 | CT_ITS ---
EXAMINATION: CT CHEST WITHOUT CONTRAST CLINICAL INFORMATION: Solitary pulmonary nodule. COMPARISON: None TECHNIQUE: Multidetector volumetric CT imaging of the chest was done. Axial MIP volume rendering provided. Sagittal and coronal reformatted images were obtained. This CT examination was performed using dose optimization techniques as appropriate, variously including the following: *Automated exposure control *Adjustment of mA and/or kV according to patient size (this includes techniques or standardized protocols for targeted exams where dose is matched to indication/reason for exam; i.e. extremities or head) *Use of iterative reconstruction technique DLP: 128 mGy-cm FINDINGS: KITCHEN AND COUNTER WORKER: Well-inflated lungs. LUNGS: There is a known right apical parenchymal density measuring 1.5 x 1.0 cm on axial image 08/01. On the last CT 07/16/2022 it measured 1.9 x 0.8 cm. No major change. There is diffuse intralobular and interlobular interstitial thickening with honeycombing pattern seen in both lower lobes and both upper lobes. Also visualized is groundglass opacity most prominent in both lower lobes, right middle lobe, right upper lobe and lingular segments. MEDIASTINUM: The thyroid lobes are symmetric and normal. Central trachea and bronchial airway is widely patent. There are inflammatory precarinal and pretracheal lymph nodes. Largest precarinal lymph node measures 1.5 x 1.3 cm similar to previous study. No pericardial effusion. CORONARY ARTERY CALCIFICATION: None visualized on this study. PLEURA: There is no pleural effusion. No pleural mass or thickening. AXILLA: Small shotty bilateral axillary lymph nodes seen. They are stable. UPPER ABDOMEN: Visualized liver, spleen, pancreas and bilateral adrenal glands are unremarkable. OSSEOUS STRUCTURES: There is exaggerated thoracic kyphosis. The vertebral heights, alignment and disc heights are normal. No aggressive lytic or sclerotic process seen. CT/CT chest wo IV con IMPRESSION: Right apical parenchymal density is stable. Diffuse interstitial lung disease with honeycombing pattern suggestive of interstitial lung disease, stable. Mediastinal lymph nodes are stable. Fleischner guidelines were followed.
== END 2023-01-20 11:10 | disposition home or self-care (01) ==
LOC: HO.CT 11:09
PROVIDERS: PCP Nurse Practitioner Family; Visit Provider Internal Medicine Pulmonary Disease
DX: R91.1 Solitary pulmonary nodule (principal)
CPT/HCPCS: 71250

== ENCOUNTER → 2023-02-02 14:39 | Outpatient (BNVA) | payer OTHER, SELFPAY | PROVIDERS: PCP Nurse Practitioner Family; Visit Provider Internal Medicine Pulmonary Disease | DX: J84.9 Interstitial pulmonary disease, unspecified (principal); R91.1 Solitary pulmonary nodule; G47.33 Obstructive sleep apnea (adult) (pediatric); Z79.52 Long term (current) use of systemic steroids; Z99.81 Dependence on supplemental oxygen | CPT/HCPCS: 99212 ==

== ENCOUNTER → 2023-02-03 14:59 | Outpatient (BNVA) | payer OTHER, SELFPAY | PROVIDERS: PCP Nurse Practitioner Family; Visit Provider Nurse Practitioner Family | DX: Z51.81 Encounter for therapeutic drug level monitoring (principal); G90.521 Complex regional pain syndrome I of right lower limb; M54.6 Pain in thoracic spine; M54.50 Low back pain, unspecified; M51.36 Other intervertebral disc degeneration, lumbar region; M47.816 Spondylosis without myelopathy or radiculopathy, lumbar region; Z79.891 Long term (current) use of opiate analgesic; G89.4 Chronic pain syndrome | CPT/HCPCS: 99212 ==

== ENCOUNTER 2023-02-07 14:00 | Outpatient (RCR) | payer OTHER, SELFPAY ==
[2022-12-28 14:06] VITALS: BP 136/86; PULSE 97
--- NOTE | 2022-12-28 15:42 | MHC.PT.EP ---
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 Pt HAS A H/O Rt TMA A CHILD. OBJECTIVE FINDINGS: DECR POSTURE, LIMITED TRUNK AROM, (+) SCOLIOSIS W RESULTANAT SOFT TISSUE TENSION AND IMBALANCE, AND (+) THORACOLUMB PAIN. FUNCTIONALLY, Pt HAS DIFFIC CARRYING HER ELDERLY DOG UP/ DOWN STAIRS, DECR AMB CEDRIC, DECR FUNCT SQUATTING, AND LIFTING OBJECTS. Pt WOULD BENEFIT FROM PT TO DEV A HEP , PAIN MGMT, AND IMPROVE ADL/ FUNCT MOB CEDRIC AT THIS TIME. Frequency and Duration: The patient will be seen 1 x WK x 5 WKS Short Term Goals: * DECR THORACOLUMBAR PAIN INCREASE POSTURAL SELF-CORRECT *Pt DEMON IMPROVED TECHN W TRANSFERS AND GAIT *REDUCE TISSUE TENSION IN JUAN THORACOLUMB/ HIPS-> IMPROVE TRUNK AND HIP MOB Intermediate Goals: *Pt INDEP W HEP AND SELF-SX MGMT TECHN *Pt RESUME FITNESS WALKING/ DOG WALKING *WFL SQUAT MECH *IMPROVED OSWESTRY SCORE (AT EVAL 33/50) Treatment Plan: Modalities to reduce pain, spasms and effusion. Manual therapy to restore motion and function. Therapeutic exercise to improve strength and flexibility. Neuromuscular re-education for posture and balance. Therapeutic activities to return to functional activities of daily living. Electronically signed by: SHANIQUE MAZARIEGOS,PT Please sign and return to therapist. Thank you for your referral.
--- NOTE | 2023-02-07 15:20 | MHC.PT.DC ---
[facility] [place] Office [place] Office [place] Office [address] Arnold Blackburn [address] [phone] F: [phone] F: [phone] F: [phone] F: [phone] Physical Therapy Discharge Report Diagnosis: CHRONIC PAIN SYNDROME-> THORACIC SPINE, SPONDYLOSIS Date of Surgery: Date of Evaluation: 12/28/22 Date of Discharge: 02/07/23 Treatments to Date: 5 Cancellations to Date: 0 No Shows to Date: 0 Discharge Status: Achieved Goals Improved Function Independent with HEP Discharge Summary: Pt REMAINS MOTIVATED W HER HEP AND SHE MET THE MAJORITY OF HER PT GOALS, EXCEPT FOR RESUMING FITNESS WALKING/DOG WALKING ( DUE TO RESPIRATORY LIMITATIONS AND Rt FOOT PAIN). Pt HAS IMPROVED TRUNK AROM, LEs STRENGTH, AND DECR LBP. SHE DEMON INDEP SELF-CORRECT W POSTURE AND OVERALL REDUCED GUARDING W ADLs- SHE DEMON WFL W FUNCTIONAL SQUATTING. SHE IS D/C'D THIS DATE W HER HEP. Electronically signed by: SHANIQUE MAZARIEGOS,PT Please sign and return to therapist. Thank you for your referral.
== END 2023-02-07 15:20 | disposition home or self-care (01) ==
LOC: HO.PT 14:00
PROVIDERS: PCP Nurse Practitioner Family; Visit Provider Nurse Practitioner Family
DX: M54.6 Pain in thoracic spine (principal); M54.50 Low back pain, unspecified; M47.816 Spondylosis without myelopathy or radiculopathy, lumbar region
CPT/HCPCS: 97110; 97140; 97162

== ENCOUNTER → 2023-02-23 15:02 | Outpatient (REF) | payer OTHER, SELFPAY | LOC: HO.SL 15:02 | PROVIDERS: PCP Nurse Practitioner Family; Visit Provider Internal Medicine Pulmonary Disease | DX: G47.33 Obstructive sleep apnea (adult) (pediatric) (principal) | CPT/HCPCS: 95806 ==

== ENCOUNTER → 2023-03-01 14:02 | Outpatient (REF) | payer OTHER, SELFPAY ==
--- NOTE | 2023-03-01 14:06 | CA_ITS ---
Transthoracic Echocardiogram Patient (Last, First, Middle): Amna Mcfadden E Gender: Female Date of : 1960 Age: 62 Procedure Date: 03/01/2023 Procedure Type: Transthoracic Echocardiogram Location: OP Height: 149.86 cm Weight: 65.77 kg BSA: 1.61 m2 Heart Rate: bpm BP: 124 / 74 mmHg [employer] Underwriter: NIGEL Referring MD: Bryan Barber MD Symptoms: I51.7 - Cardiomegaly Study Quality: Adequate ECG Rhythm: Sinus Conclusions: - The left ventricular systolic function is normal. The calculated ejection fraction is 61% by biplane method. - The basal inferior and basal inferoseptal segments are hypokinetic. - There is mild mitral annular calcification. - No obvious valvular pathology seen on this study. Findings Left Ventricle Normal left ventricular cavity size. There is normal left ventricular wall thickness. The left ventricular systolic function is normal. The calculated ejection fraction is 61% by biplane method. Diastolic function is normal for age. LV peak GLS -14.1%. Wall Motion Rest Echo Findings The basal inferior and basal inferoseptal segments are hypokinetic. Right Ventricle Normal right ventricular cavity size and systolic function. Atria Both atria are normal in size. Aortic Valve There is a normal trileaflet aortic valve. There is no aortic valve stenosis. There is no aortic valve regurgitation. Mitral Valve The mitral valve appears normal. There is mild mitral annular calcification. There is no mitral valve regurgitation. There is no mitral valve stenosis. Pulmonic Valve There is trace pulmonic valve regurgitation. Tricuspid Valve There is trace tricuspid valve regurgitation. There is no evidence of pulmonary hypertension. Great Vessels The asc aorta is normal in size. Venous The inferior vena cava is normal in size and collapses less than 50% with inspiration. Pericardium/Pleural There is no evidence of pericardial effusion. Prior Study Comparison No significant change compared to prior study dated: 08/30/2022. Wall motion similar to prior study; images reviewed. Recommendations, Care & Conclusions No obvious valvular pathology seen on this study. Measurements 2D Linear Measurements IVSd: 1.07 0.6-0.9/0.6-1.0 cm LVIDd: 3.26 3.9-5.3/4.2-5.9 cm LVIDd Index: 2.02 2.4-3.2/2.2-3.1 cm/m2 LVIDs: 2.06 2.0-3.6 cm LVPWd: 0.91 0.7-1.1 cm LA Diam: 2.80 2.7-3.8/3.0-4.0 cm LAIDs Index: 1.74 1.5-2.3 cm/m2 LV Mass: 113.69 67-162/88-224 g LV Mass Index: 70.61 43-95/49-115 g/m2 LVOT Diam: 2.00 3.0+(-)1.3 cm 2D Systolic Function EF 4C: 56.10 >55% EF 2C: 62.10 >55% EF BiP: 61.00 >55% Mitral Valve MV Pk E: 0.72 MV PK A: 0.91 MV Decel Time: 198.00 E/A: 0.80 E'Lateral: 11.40 E'Medial: 6.42 E/E' Med: 11.20 E/E' Lat: 6.30 PHT: 58.00 MVA PHT: 3.79 Decel Johnston: 3.62 Aortic Valve AoV Pk Silviano: 1.45 AoV Mn Silviano: 0.98 AoV VTI: 0.27 AoV Pk Grad: 8.00 Aov Mn Grad: 4.00 MIAN Cont.VTI: 2.19 LVOT LVOT Pk Silviano: 1.06 LVOT Mn Silviano: 0.72 LVOT VTI: 0.19 LVOT Pk Grad: 4.00 LVOT Mn Grad: 2.00 LVOT Diam: 2.00 LVOT Area: 3.14 Diastolic Function MV Pk E: 0.72 MV Pk A: 0.91 E/A: 0.80 E'Medial: 6.42 E/E' Med: 11.20 E' Laterial: 11.40 E/E' Lat: 6.30 Right Ventricle TAPSE (mm): 18.00 TVS' Silviano: 11.40 Tricuspid Valve TR Pk Silviano: 1.74 TR Pk Grad: 12.00 RA Press: 8.00 RVSP: 20.00 Great Vessels Aorta Sinus of Valsalva: 3.45 2.0-3.[address] Ridge: 2.81 1.7-3.4 cm Ao Asc: 3.20 2.1-3.4 cm Updated in Other Vendor System with Status of Final Bryan Barber MD electronically signed on 03/02/2023 1:41:54 PM with status of Final
== END ==
LOC: HO.CARD 14:02
PROVIDERS: PCP Nurse Practitioner Family; Visit Provider Internal Medicine
DX: I51.7 Cardiomegaly (principal)
CPT/HCPCS: 93306; 93356

== ENCOUNTER → 2023-03-03 15:25 | Outpatient (BNVA) | payer OTHER, SELFPAY | PROVIDERS: PCP Nurse Practitioner Family; Visit Provider Nurse Practitioner Family | DX: Z51.81 Encounter for therapeutic drug level monitoring (principal); F11.20 Opioid dependence, uncomplicated | CPT/HCPCS: 99211 ==

== ENCOUNTER → 2023-03-04 13:07 | Outpatient (BNVA) | payer OTHER, SELFPAY | PROVIDERS: PCP Nurse Practitioner Family; Visit Provider Nurse Practitioner Family | DX: K58.2 Mixed irritable bowel syndrome (principal); K59.04 Chronic idiopathic constipation | CPT/HCPCS: 99212 ==

== ENCOUNTER → 2023-03-08 12:37 | Outpatient (BNVA) | payer OTHER, SELFPAY | PROVIDERS: PCP Nurse Practitioner Family; Referring Provider Nurse Practitioner Family; Visit Provider Internal Medicine | DX: I51.7 Cardiomegaly (principal); I27.81 Cor pulmonale (chronic); I10 Essential (primary) hypertension; J84.9 Interstitial pulmonary disease, unspecified | CPT/HCPCS: 93005; 99212 ==

== ENCOUNTER → 2023-03-31 15:33 | Outpatient (BNVA) | payer OTHER, SELFPAY | PROVIDERS: PCP Nurse Practitioner Family; Visit Provider Nurse Practitioner Family | DX: Z51.81 Encounter for therapeutic drug level monitoring (principal); F11.20 Opioid dependence, uncomplicated | CPT/HCPCS: 99211 ==

== ENCOUNTER → 2023-04-28 15:28 | Outpatient (BNVA) | payer OTHER, SELFPAY | PROVIDERS: PCP Nurse Practitioner Family; Visit Provider Nurse Practitioner Family | DX: G90.521 Complex regional pain syndrome I of right lower limb (principal); G89.4 Chronic pain syndrome; M54.6 Pain in thoracic spine; M54.50 Low back pain, unspecified; M51.36 Other intervertebral disc degeneration, lumbar region; M47.816 Spondylosis without myelopathy or radiculopathy, lumbar region; Z79.891 Long term (current) use of opiate analgesic | CPT/HCPCS: 99212 ==

== ENCOUNTER → 2023-05-05 14:21 | Outpatient (BNVA) | payer OTHER, SELFPAY | PROVIDERS: PCP Nurse Practitioner Family; Visit Provider Internal Medicine Pulmonary Disease | DX: J84.9 Interstitial pulmonary disease, unspecified (principal); Z99.81 Dependence on supplemental oxygen | CPT/HCPCS: 99212 ==

== ENCOUNTER → 2023-05-26 15:26 | Outpatient (BNVA) | payer OTHER, SELFPAY | PROVIDERS: PCP Nurse Practitioner Family; Visit Provider Nurse Practitioner Family | DX: Z51.81 Encounter for therapeutic drug level monitoring (principal); M47.816 Spondylosis without myelopathy or radiculopathy, lumbar region; Z79.891 Long term (current) use of opiate analgesic | CPT/HCPCS: 99212 ==

== ENCOUNTER → 2023-06-28 14:30 | Outpatient (BNV) | payer OTHER, SELFPAY | PROVIDERS: PCP Nurse Practitioner Family; Visit Provider Radiology Diagnostic Radiology | DX: Z12.31 Encounter for screening mammogram for malignant neoplasm of breast (principal) | CPT/HCPCS: 77063; 77067 ==

== ENCOUNTER 2023-06-28 14:46 | Outpatient (REF) | payer OTHER, SELFPAY ==
--- NOTE | ~2023-06-28 | MM_ITS ---
EXAMINATION: MM SCREENING DIGITAL BREAST TOMOSYNTHESIS, BILATERAL CLINICAL INFORMATION: Screening. Asymptomatic. The lifetime risk of breast cancer based on the Tyrer-Cuzick Model is 6.8%. COMPARISON: Mammography: This study is compared with prior exams dating back to 2017. TECHNIQUE: Digital breast tomosynthesis is performed in both the craniocaudal and mediolateral oblique views along with computer-aided detection (CAD). Synthesized 2D images are generated from the tomosynthesis. FINDINGS: The breasts are almost entirely fatty (ACR BI-RADS breast composition Category a). There are no significant masses, abnormal calcifications, or other abnormalities. MM/MM tomosynthesis screening BI IMPRESSION: No mammographic evidence of malignancy. ASSESSMENT: BI-RADS BI-RADS 1 - Negative RECOMMENDATION: Routine annual mammography screening. 1 year F/U This examination should not preclude the clinical evaluation of a suspicious palpable abnormality. This patient's information was entered into a reminder system with a target due date for their next mammogram.
== END 2023-06-28 14:47 | disposition home or self-care (01) ==
LOC: HO.MAMMO 14:46
PROVIDERS: PCP Nurse Practitioner Family; Visit Provider Nurse Practitioner Family
DX: Z12.31 Encounter for screening mammogram for malignant neoplasm of breast (principal)
CPT/HCPCS: 77063; 77067

== ENCOUNTER 2023-06-30 13:05 | Outpatient (AMB) | payer OTHER, SELFPAY ==
--- NOTE | 2023-06-30 13:07 | MHC.OFFVIS ---
Intake Vital Signs 06/30/23 13:18 Height 4 ft 11 in Weight 139 lb 8 oz BMI 28.2 BP 130/79 Blood Pressure Location Lt brachial Position Sitting Pulse 109 H Pulse Source Pulse Oximeter Pulse Oximetry (%) 97 Oxygen Delivery Method Room Air Intake Visit Reasons: Pill count Intake Note: Amna comes in today for a pill count to morphine, patient should have 68 tablets and presents with 69 tablets which he last took today 06/30/23 at 12pm. Pain today 06/06. 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 Patient reports mild to moderate analgesia on morphine 15 mg QID prn. She denies any side effects. Patient is supposed to have #68 pills in her possession and presents with #69. This demonstrates a responsible attitude towards her regimen. Denies any fever, dizziness, dyspnea, shortness of breaths, chest pain or tightness, headaches, constipation, nausea, sedation, or urinary retention. Patient reports current medication regime allows her to be less symptomatic and more functional. 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 Social History Household Members: None Housing: Condominium Do you presently have visiting nurse or other home services: No Alcohol intake: never Patient Tobacco Use Status: Current everyday Tobacco user Tobacco use type: Cigarette Cigarettes Per Day: 1 Years Smoked: 30 e-Cigarette/Vaping Use: Never Used Second Hand Smoke Exposure: No Advance Directives Date on File: 08/05/21 service: No Current occupational status: disabled Cognitive needs: No Hearing needs: No Vision needs: No Review of Systems Const All systems reviewed & are unremarkable except as noted in HPI and below Physical Exam General: Appears afebrile. Alert and oriented. Mood and affect appropriate. Follows and participates in conversation appropriately. Respiratory effort is unlabored. No cough. No nasal discharge. Able to transition from sit to stand unassisted. Uses cane with ambulation. Psych Appearance: grossly normal and well kempt Mental Status: mental status grossly normal Speech and movement: Normal speech and movement present and Clear speech present Affect: normal affect Attitude: cooperative Thought process: Normal thought process present Thought content: Normal thought content present, suicidality (none), no hallucinations and No Depressive thoughts present Insight: Good insight present (Psych) Judgement: Good judgement present (Psych) Assessment & Plan Assessment & Plan (1) Complex regional pain syndrome of right lower extremity: Code(s): G90.521 - Complex regional pain syndrome I of right lower limb (2) Chronic pain syndrome: Code(s): G89.4 - Chronic pain syndrome (3) Dorsalgia of thoracolumbar region: Code(s): M54.6 - Pain in thoracic spine; M54.50 - Low back pain, unspecified (4) Lumbar degenerative disc disease: Code(s): M51.36 - Other intervertebral disc degeneration, lumbar region (5) Lumbar spondylosis: Code(s): M47.816 - Spondylosis without myelopathy or radiculopathy, lumbar region (6) 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 There is no evidence of misuse, abuse or diversion at this time. [employer] reviewed. I will send in a refill of her Morphine IR 15 mg QID with an advanced date of 07/18/23. Reports adequate analgesia without side effects. Discussed with the patient the risks associated with benzodiazepine and opioid use. Patient is aware and verbalized agreement to take the medications at least two hours apart and does have Narcan at home. All questions were answered and patient is in agreement of plan. Will follow up in one month for a pill count or sooner if needed. Medications: Refilled morphine Partial Fill upon patient request. 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
[2023-06-30 13:18] VITALS: BP 130/79; PULSE 109; O2SAT 97; BMI 28.2
== END 2023-06-30 13:29 | disposition home or self-care (01) ==
PROVIDERS: PCP Nurse Practitioner Family; Visit Provider Nurse Practitioner Family
DX: G90.521 Complex regional pain syndrome I of right lower limb (principal); G89.4 Chronic pain syndrome; M54.6 Pain in thoracic spine; M54.50 Low back pain, unspecified; M51.36 Other intervertebral disc degeneration, lumbar region; M47.816 Spondylosis without myelopathy or radiculopathy, lumbar region; Z79.891 Long term (current) use of opiate analgesic
CPT/HCPCS: 99214

== ENCOUNTER → 2023-06-30 13:05 | Outpatient (BNVA) | payer OTHER, SELFPAY | PROVIDERS: PCP Nurse Practitioner Family; Visit Provider Nurse Practitioner Family | DX: Z51.81 Encounter for therapeutic drug level monitoring (principal); F11.20 Opioid dependence, uncomplicated; G90.521 Complex regional pain syndrome I of right lower limb; M54.6 Pain in thoracic spine; M54.50 Low back pain, unspecified; M51.36 Other intervertebral disc degeneration, lumbar region; M47.816 Spondylosis without myelopathy or radiculopathy, lumbar region; G89.4 Chronic pain syndrome; Z79.891 Long term (current) use of opiate analgesic | CPT/HCPCS: 99212 ==

== ENCOUNTER 2023-07-29 13:03 | Outpatient (AMB) | payer OTHER, SELFPAY ==
--- NOTE | 2023-07-29 13:05 | A.OFFVIS_ITS ---
Intake Vital Signs 07/29/23 13:17 Height 4 ft 11 in Weight 138 lb 6 oz BMI 27.9 BP 131/89 Blood Pressure Location Lt brachial Position Sitting Pulse 100 Pulse Source Pulse Oximeter Pulse Oximetry (%) 97 Oxygen Delivery Method Room Air Intake Visit Reasons: Pill count Intake Note: Amna comes in today for a pill count to morphine, patient should have 72 tablets and presents with 76 tablets which she last took today 07/29/23 at 11am. Pain today 03/07. 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 Patient reports adequate analgesia on morphine 15 mg QID prn. She denies any side effects. Patient is supposed to have #72 pills in her possession and presents with #76. This demonstrates a responsible attitude towards her regimen. Denies any fever, dizziness, dyspnea, shortness of breaths, chest pain or tightness, headaches, constipation, nausea, sedation, or urinary retention. Denies any recent ER or Urgent Clinic visits, hospitalizations or changes in her medical history. Patient reports she recently refilled her gabapentin through [facility] delivery, [facility]. and reports this medication cause her sickness, stabbing pain, nausea, diarrhea, sweating, chills. She also brought old bottle with few gabapentin pills from previously filled at [facility], [email or web address] and tolerated these specific pills without any side effects. She requests me to resent her gabapentin to [facility] and she is bringing recently filled script back to [facility] for refund on insurance and reflect on [facility]. 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 Social History Household Members: None Housing: Condominium Do you presently have visiting nurse or other home services: No Alcohol intake: never Patient Tobacco Use Status: Current everyday Tobacco user Tobacco use type: Cigarette Cigarettes Per Day: 1 Years Smoked: 30 e-Cigarette/Vaping Use: Never Used Second Hand Smoke Exposure: No Advance Directives Date on File: 08/05/21 service: No Current occupational status: disabled Cognitive needs: No Hearing needs: No Vision needs: No Review of Systems Const All systems reviewed & are unremarkable except as noted in HPI and below Reports as per HPI, Denies body aches, Denies chills, Denies difficulty sleeping, Denies fatigue, Denies fever(s), Denies frequent falls, Denies poor appetite, Denies weakness and Denies weight loss ENT Reports Normal hearing present Card Denies chest pain, Denies leg edema, Denies lightheadedness and Denies dyspnea Resp Denies dyspnea Neuro Reports Normal hearing present, Denies Abnormal speech present, Denies confusion, Denies frequent falls and Denies weakness Psych Denies confusion Endo Denies fatigue Physical Exam Const General: cooperative, no acute distress, alert, awake and well groomed; No confusion Nutritional Appearance: well nourished and overweight Orientation/consciousness: patient oriented x3 and No confusion Limitations: ambulation with cane HEENT Head: Yes normal to inspection and Yes normocephalic Ears: hearing grossly normal bilaterally General nose exam: No nasal discharge present Face and sinus: Yes normal facial exam and Yes face symmetric Eyes General: appearance normal, both eyes and all related structures Visual Gimenez: normal visual gimenez by confrontation Pupils: Equal, round and reactive pupils present EOM: EOMs intact bilaterally Neck Neck: Yes normal visual inspection, No anterior neck swelling and Yes no JVD Resp Effort & Inspection: normal respiratory effort, able to speak in complete sentences, no cough and symmetric chest movement Cardio Jugular venous distension: no JVD Bruits: no carotid bruits Peripheral pulses: radial pulses present GI Inspection: Yes normal to inspection Palpation (GI): Soft to palpation and nontender Back/Spine/Pelvis Cervical Spine: normal cervical lordosis and No Cervical spine tenderness Thoracic/Lumbar Spine: thoracic and lumbar spine normal to inspection, Lasegue's sign negative, straight leg raise negative bilaterally, kyphosis, pain with thoraco-lumbar ROM (Facet loading positive bilaterally. Increased pain with back extension.), paraspinal muscle tenderness, thoraco-lumbar ROM limited, Thoracic/lumbar scoliosis, No thoracic spinal tenderness and lumbar spinal tenderness Neuro General: patient oriented x3, moves all extremities, Normal light touch and pain sensation and No confusion Cranial nerves: Yes Equal, round and reactive pupils present and Yes Normal hearing present Cognition (Neuro): normal cognition Speech: No Abnormal speech present Gait exam (Neuro): Antalgic gait present and Assistive device used Extrem General: Yes capillary refill normal, Yes no clubbing, cyanosis or edema and Yes no calf tenderness Psych Appearance: grossly normal and well kempt Mental Status: mental status grossly normal Speech and movement: Normal speech and movement present and Clear speech present Affect: normal affect Attitude: cooperative Thought process: Normal thought process present Thought content: Normal thought content present, suicidality (none), no hallucinations and No Depressive thoughts present Insight: Good insight present (Psych) Judgement: Good judgement present (Psych) Assessment & Plan Assessment & Plan (1) Complex regional pain syndrome of right lower extremity: Code(s): G90.521 - Complex regional pain syndrome I of right lower limb (2) Chronic pain syndrome: Code(s): G89.4 - Chronic pain syndrome (3) Dorsalgia of thoracolumbar region: Code(s): M54.6 - Pain in thoracic spine; M54.50 - Low back pain, unspecified (4) Lumbar degenerative disc disease: Code(s): M51.36 - Other intervertebral disc degeneration, lumbar region (5) Lumbar spondylosis: Code(s): M47.816 - Spondylosis without myelopathy or radiculopathy, lumbar region (6) 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 There is no evidence of misuse, abuse or diversion at this time. [employer] reviewed. Script for Morphine IR 15 mg QID with an advanced date of 08/17/23. Script for gabapentin resent to [facility] due to intolerance with of gabapentin through new [facility]. Previous Mfr [facility] gabapentin was well tolerated per patient. Patient reports adequate analgesia without side effects. Discussed with the patient the risks associated with benzodiazepine and opioid use. Patient is aware and verbalized agreement to take the medications at least two hours apart and does have Narcan at home. All questions were answered and patient is in agreement of plan. Will follow up in 4 weeks for a pill count or sooner as needed. Medications: Refilled gabapentin 800 mg (2 x 400 mg) PO QID 30 days 240 caps 1RF pain G89.4 - Chronic pain syndrome, G90.521 - Complex regional pain syndrome I of right lower limb, M51.36 - Other intervertebral disc degeneration, lumbar region, M54.50 - Low back pain, unspecified, M54.6 - Pain in thoracic spine morphine Partial Fill upon patient request. 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
[2023-07-29 13:17] VITALS: BP 131/89; PULSE 100; O2SAT 97; BMI 27.9
== END 2023-07-29 13:36 | disposition home or self-care (01) ==
PROVIDERS: PCP Nurse Practitioner Family; Visit Provider Nurse Practitioner Family
DX: G90.521 Complex regional pain syndrome I of right lower limb (principal); G89.4 Chronic pain syndrome; M54.6 Pain in thoracic spine; Z79.891 Long term (current) use of opiate analgesic; M54.50 Low back pain, unspecified; M51.36 Other intervertebral disc degeneration, lumbar region; M47.816 Spondylosis without myelopathy or radiculopathy, lumbar region
CPT/HCPCS: 99214

== ENCOUNTER → 2023-07-29 13:03 | Outpatient (BNVA) | payer OTHER, SELFPAY | PROVIDERS: PCP Nurse Practitioner Family; Visit Provider Nurse Practitioner Family | DX: Z51.81 Encounter for therapeutic drug level monitoring (principal); F11.20 Opioid dependence, uncomplicated; G90.521 Complex regional pain syndrome I of right lower limb; M54.6 Pain in thoracic spine; M54.50 Low back pain, unspecified; M51.36 Other intervertebral disc degeneration, lumbar region; M47.816 Spondylosis without myelopathy or radiculopathy, lumbar region; G89.4 Chronic pain syndrome; Z79.891 Long term (current) use of opiate analgesic | CPT/HCPCS: 99212 ==

== ENCOUNTER 2023-08-05 13:02 | Outpatient (REF) | payer OTHER, SELFPAY ==
--- NOTE | ~2023-08-05 | CT_ITS ---
EXAMINATION: CT CHEST WITHOUT CONTRAST CLINICAL INFORMATION: Interstitial pulmonary disease. COMPARISON: CT chest 01/20/2023. TECHNIQUE: Multidetector volumetric CT imaging of the chest was done. Axial MIP volume rendering provided. Sagittal and coronal reformatted images were obtained. This CT examination was performed using dose optimization techniques as appropriate, variously including the following: *Automated exposure control *Adjustment of mA and/or kV according to patient size (this includes techniques or standardized protocols for targeted exams where dose is matched to indication/reason for exam; i.e. extremities or head) *Use of iterative reconstruction technique DLP: 190 mGy-cm FINDINGS: LUNGS: Again seen is diffuse interstitial thickening with honeycombing seen throughout the lungs, most prominent in the apices and at the lower lobes. Also again noted are scattered areas of ground-glass opacity. Once again seen is a right apical parenchymal density measuring 1.2 x 1.0 cm, unchanged from prior (9:38 compare prior 5:77). There is also a spiculated density with adjacent calcification measuring about 6 mm in the right upper lobe which is unchanged (9:98 compare prior 5:198). No new lung masses are seen. MEDIASTINUM: The thyroid appears normal. Central trachea airways are widely patent. There are presumed reactive precarinal and pretracheal lymph nodes. Largest precarinal lymph node measures 1.5 x 1.4 cm, similar to the previous study (9:96). Some hilar nodes are suspected but are poorly evaluated secondary to lack of IV contrast. No pericardial effusion. CORONARY ARTERY CALCIFICATION: None visualized on this study. PLEURA: There is no pleural effusion. No pleural mass or thickening. AXILLA: Small stable shotty bilateral axillary lymph nodes without adenopathy. UPPER ABDOMEN: Unremarkable. OSSEOUS STRUCTURES: Mild thoracic kyphosis again noted. Degenerative changes are seen most prominently in the lower thoracic and upper lumbar spine. There is grade 1 retrolisthesis of L1 upon L2. No bony destructive lesions. CT/CT chest wo IV con IMPRESSION: 1. Stable interstitial lung disease with honeycombing. 2. Stable right upper lobe lung nodules. 3. No new lung masses are seen. 4. Mediastinal lymph nodes are unchanged, presumably reactive. 5. Incidental note made of degenerative changes in the spine with grade 1 retrolisthesis of L1 upon L2. Fleischner guidelines were followed.
== END 2023-08-05 13:03 | disposition home or self-care (01) ==
LOC: HO.CT 13:02
PROVIDERS: PCP Nurse Practitioner Family; Visit Provider Internal Medicine Pulmonary Disease
DX: J84.9 Interstitial pulmonary disease, unspecified (principal)
CPT/HCPCS: 71250

== ENCOUNTER 2023-08-26 13:01 | Outpatient (AMB) | payer OTHER, SELFPAY ==
--- NOTE | 2023-08-26 13:01 | MHC.OFFVIS ---
Intake Vital Signs 08/26/23 13:42 Height 4 ft 11 in Weight 137 lb 2 oz BMI 27.7 BP 130/78 Blood Pressure Location Rt brachial Position Sitting Pulse 94 Pulse Source Pulse Oximeter Pulse Oximetry (%) 96 Oxygen Delivery Method Room Air Intake Visit Reasons: Pill count Intake Note: Amna comes in today for a pill count to morphine, patient should have 80 tablets and presents with 77 tablets which she last took today 08/26/23 at 12:45pm. 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 Patient reports adequate analgesia on morphine 15 mg QID prn. She denies any side effects. Patient is supposed to have #80 pills in her possession and presents with #77. She is slightly short on her pill count today but within allowance for one day. She continues to demonstrate responsible attitude towards her regimen. Denies any fever, dizziness, dyspnea, shortness of breaths, chest pain or tightness, headaches, constipation, nausea, sedation, or urinary retention. Denies any recent ER or Urgent Clinic visits, hospitalizations or changes in her medical history. 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 Social History Household Members: None Housing: Condominium Do you presently have visiting nurse or other home services: No Alcohol intake: never Patient Tobacco Use Status: Current everyday Tobacco user Tobacco use type: Cigarette Cigarettes Per Day: 1 Years Smoked: 30 e-Cigarette/Vaping Use: Never Used Second Hand Smoke Exposure: No Advance Directives Date on File: 08/05/21 service: No Current occupational status: disabled Cognitive needs: No Hearing needs: No Vision needs: No Review of Systems Const All systems reviewed & are unremarkable except as noted in HPI and below Physical Exam Vital Signs: Last Vital Signs Pulse 94 08/26/23 13:42 BP 130/78 08/26/23 13:42 Pulse Ox 96 08/26/23 13:42 Oxygen Delivery Method Room Air 08/26/23 13:42 BMI result Body Mass Index 27.7 General: Appears afebrile. Alert and oriented. Mood and affect appropriate. Follows and participates in conversation appropriately. Respiratory effort is unlabored. No cough. Able to transition from sit to stand unassisted. Uses cane with ambulation. Psych Appearance: grossly normal and well kempt Mental Status: mental status grossly normal Speech and movement: Normal speech and movement present and Clear speech present Affect: normal affect Attitude: cooperative Thought process: Normal thought process present Thought content: Normal thought content present, suicidality (none), no hallucinations and No Depressive thoughts present Insight: Good insight present (Psych) Judgement: Good judgement present (Psych) Assessment & Plan Assessment & Plan (1) Complex regional pain syndrome of right lower extremity: Code(s): G90.521 - Complex regional pain syndrome I of right lower limb (2) Chronic pain syndrome: Code(s): G89.4 - Chronic pain syndrome (3) Lumbar degenerative disc disease: Code(s): M51.36 - Other intervertebral disc degeneration, lumbar region (4) 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 There is no evidence of misuse, abuse or diversion at this time. [employer] reviewed. Script for Morphine IR 15 mg QID with an advanced date of 09/15/23. Patient reports adequate analgesia without side effects. Discussed with the patient the risks associated with benzodiazepine and opioid use. Patient is aware and verbalized agreement to take the medications at least two hours apart and does have Narcan at home. All questions were answered and patient is in agreement of plan. Will follow up in 4 weeks for a pill count or sooner as needed. Medications: Refilled morphine Partial Fill upon patient request. 15 mg PO Q6H PRN 120 tabs 0RF pain, severe 30 days G89.4 - Chronic pain syndrome, G90.521 - Complex regional pain syndrome I of right lower limb, M47.816 - Spondylosis without myelopathy or radiculopathy, lumbar region, M51.36 - Other intervertebral disc degeneration, lumbar region Coding Level of Care Code Est Pt Level 4 (02838) Diagnoses Complex regional pain syndrome of right lower extremity G90.521 Chronic pain syndrome G89.4 Lumbar degenerative disc disease M51.36 USP (current) use of opiate analgesic Z79.891
[2023-08-26 13:42] VITALS: BP 130/78; PULSE 94; O2SAT 96; BMI 27.7
== END 2023-08-26 13:21 | disposition home or self-care (01) ==
PROVIDERS: PCP Nurse Practitioner Family; Visit Provider Nurse Practitioner Family
DX: G89.4 Chronic pain syndrome (principal); G90.521 Complex regional pain syndrome I of right lower limb; M51.36 Other intervertebral disc degeneration, lumbar region; Z79.891 Long term (current) use of opiate analgesic
CPT/HCPCS: 99214

== ENCOUNTER → 2023-08-26 13:01 | Outpatient (BNVA) | payer OTHER, SELFPAY | PROVIDERS: PCP Nurse Practitioner Family; Visit Provider Nurse Practitioner Family | DX: Z51.81 Encounter for therapeutic drug level monitoring (principal); F11.20 Opioid dependence, uncomplicated; G90.521 Complex regional pain syndrome I of right lower limb; M51.36 Other intervertebral disc degeneration, lumbar region; G89.4 Chronic pain syndrome; Z79.891 Long term (current) use of opiate analgesic | CPT/HCPCS: 99212 ==

== ENCOUNTER 2023-08-30 15:17 | Outpatient (AMB) | payer OTHER, SELFPAY ==
[2023-08-30 15:19] VITALS: BP 138/84; PULSE 109; O2SAT 92; BMI 28.3
--- NOTE | 2023-08-30 15:19 | A.OFFVIS_ITS ---
Intake Vital Signs 08/30/23 15:19 Height 4 ft 11 in Weight 139 lb 15.896 oz BMI 28.3 BP 138/84 Blood Pressure Location Rt brachial Position Sitting Pulse 109 H Pulse Source Doppler Pulse Oximetry (%) 92 Oxygen Delivery Method Room Air Intake Visit Reasons: gaviota Allergies No Known Allergies Allergy (Verified 08/30/23 15:22) HPI gaviota HPI Details 63-year-old lady with underlying opioid dependence, congestive heart failure followed for interstitial lung disease.?Her CT chest showed worsening fibrosis increasing had right sided pulmonary nodule.? Her PET scan showed no FDG activity in the nodule. Patient had several follow-up CT chest that shows stability of underlying findings. His symptoms are well controlled on prednisone 5 mg daily and calcium/vitamin-D. She denies any recent exacerbations. 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 Social History Household Members: None Housing: Condominium Do you presently have visiting nurse or other home services: No Alcohol intake: never Patient Tobacco Use Status: Current everyday Tobacco user Tobacco use type: Cigarette Cigarettes Per Day: 1 Years Smoked: 30 e-Cigarette/Vaping Use: Never Used Second Hand Smoke Exposure: No Advance Directives Date on File: 08/05/21 service: No Current occupational status: disabled Cognitive needs: No Hearing needs: No Vision needs: No Review of Systems Const Denies daytime sleepiness, Denies excessive sweating, Denies fatigue, Denies fever(s), Denies lethargy, Denies malaise, Denies night sweats, Denies snoring and Denies weight loss Eyes Denies blurry vision and Denies itchy eyes ENT Denies nasal congestion, Denies post nasal drip, Denies sinus pain, Denies sinus pressure and Denies other ( Thrush) Card Denies chest pain, Denies pedal edema, Denies dyspnea, Denies orthopnea and Denies paroxysmal nocturnal dyspnea Resp Denies cough, Denies hemoptysis, Denies excessive phlegm production, Denies dyspnea, Denies snoring and Denies wheezing GI Denies abdominal pain and Denies heartburn Musc Denies myalgias, Denies arthralgias and Denies joint swelling Skin/Breast Denies rash Neuro Denies memory loss and Denies seizure-like activity Psych Denies abnormal sleep pattern, Denies anxiety and Denies memory loss Endo Denies excessive sweating, Denies fatigue and Denies heat intolerance Demian/Lymph Denies easy bruising Aller/Immun Denies itchy eyes, Denies seasonal rhinorrhea and Denies wheezing Physical Exam Vital Signs: Last Vital Signs Pulse 109 H 08/30/23 15:19 BP 138/84 08/30/23 15:19 Pulse Ox 92 08/30/23 15:19 Oxygen Delivery Method Room Air 08/30/23 15:19 BMI result Body Mass Index 28.3 Const General: no acute distress and alert Nutritional Appearance: not obese Orientation/consciousness: Other orientation findings ( oriented) HEENT Head: Yes atraumatic Eyes General: appearance normal, both eyes and all related structures Sclerae: sclerae normal EOM: EOMs intact bilaterally Neck Neck: Yes supple Lymphatic: no lymphadenopathy noted Resp Effort & Inspection: normal respiratory effort and no use of accessory muscles Auscultation: clear to auscultation bilaterally Cardio Rate: regular rate Rhythm: regular rhythm Heart sounds: no gallops, no murmurs and no rubs Skin General skin exam: other ( warm) Extrem General: No clubbing, No cyanosis and No edema Assessment & Plan Assessment & Plan (1) ILD (interstitial lung disease): Code(s): J84.9 - Interstitial pulmonary disease, unspecified Plan: Symptoms well controlled on prednisone 5 mg and calcium vitamin-D. Continue current regimen. (2) Pulmonary nodule 1 cm or greater in diameter: Code(s): R91.1 - Solitary pulmonary nodule Plan: Results of follow-up CT chest reviewed, stable findings. Will repeat CT chest in 12 months. Orders: Orders CT chest wo IV con 07/31/24 R91.1 - Solitary pulmonary nodule Coding Level of Care Code Est Pt Level 4 (01658) Diagnoses ILD (interstitial lung disease) J84.9 Pulmonary nodule 1 cm or greater in diameter R91.1
== END 2023-08-30 15:40 | disposition home or self-care (01) ==
PROVIDERS: PCP Nurse Practitioner Family; Visit Provider Internal Medicine Pulmonary Disease
DX: J84.9 Interstitial pulmonary disease, unspecified (principal); R91.1 Solitary pulmonary nodule
CPT/HCPCS: 99214

== ENCOUNTER → 2023-08-30 15:17 | Outpatient (BNVA) | payer OTHER, SELFPAY | PROVIDERS: PCP Nurse Practitioner Family; Visit Provider Internal Medicine Pulmonary Disease | DX: J84.9 Interstitial pulmonary disease, unspecified (principal); R91.1 Solitary pulmonary nodule; Z79.52 Long term (current) use of systemic steroids; Z79.899 Other long term (current) drug therapy | CPT/HCPCS: 99212 ==

== ENCOUNTER 2023-09-02 12:34 | Outpatient (AMB) | payer OTHER, SELFPAY ==
--- NOTE | 2023-09-02 13:06 | MHC.OFFWIV ---
Intake Vital Signs 09/02/23 13:07 Weight 140 lb BP 120/70 Blood Pressure Location Rt brachial Position Sitting Pulse 100 Pulse Source Pulse Oximeter Pulse Oximetry (%) 90 L Oxygen Delivery Method Room Air Intake Visit Reasons: EST/uti Intake Note: Patient here for UTI, frequent urination, blood in urine which has jasson present for a few days. Patient Tobacco Use Status: Current everyday Tobacco user Allergies No Known Allergies Allergy (Verified 09/02/23 13:08) Do you need a note to return to daycare/school/sports/work: No HPI HPI Comments History of Present Illness Details This is a 63-year-old female who presents to the office today for sick visit. Patient complaining of dysuria, mild hematuria, and increased urinary frequency x3 days. She denies any fevers or chills and she denies any flank pain. She denies any chest pain or shortness of breath. She denies any abdominal pain or nausea/vomiting/diarrhea. 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 Social History Household Members: None Housing: Condominium Do you presently have visiting nurse or other home services: No Alcohol intake: never Patient Tobacco Use Status: Current everyday Tobacco user Tobacco use type: Cigarette Cigarettes Per Day: 1 Years Smoked: 30 e-Cigarette/Vaping Use: Never Used Second Hand Smoke Exposure: No Advance Directives Date on File: 08/05/21 service: No Current occupational status: disabled Cognitive needs: No Hearing needs: No Vision needs: No Review of Systems Const All systems reviewed & are unremarkable except as noted in HPI and below Reports no additional complaints Eyes Reports no additional complaints ENT Reports no additional complaints Card Reports no additional complaints Resp Reports no additional complaints GI Reports no additional complaints Reports no additional complaints Musc Reports no additional complaints Skin/Breast Reports system reviewed and no additional complaints, except as documented Neuro Reports no additional complaints Psych Reports no additional complaints Endo Reports no additional complaints Demian/Lymph Reports no additional complaints Aller/Immun Reports no additional complaints Physical Exam Vital Signs: Last Vital Signs Pulse 100 09/02/23 13:07 BP 120/70 09/02/23 13:07 Pulse Ox 90 L 09/02/23 13:07 Oxygen Delivery Method Room Air 09/02/23 13:07 Const Other: Vital signs reviewed. Constitutional: Non-toxic appearing. No acute distress. Well-developed and well-nourished. HEENT: Normocephalic and atraumatic. Tympanic membranes without erythema, edema, or bulging bilaterally. External auditory canals without erythema or edema bilaterally. Moist mucous membranes. No pharyngeal erythema or exudates. Skin: Warm and dry. No rashes or lesions noted. Neck: Full and painless range of motion. No cervical lymphadenopathy. Cardio: Regular rate and rhythm. No murmurs, gallops, or rubs. No lower extremity edema. No JVD. Pulmonary: No respiratory distress. No accessory muscle usage. Clear to auscultation bilaterally without wheezing, crackles, or rhonchi. Gastrointestinal: Soft, nontender, and nondistended in all 4 quadrants. Normoactive bowel sounds in all 4 quadrants. Genitourinary: No CVA tenderness. Musculoskeletal: Normal range of motion in joints throughout the body. No deformity or other signs of injury. Neuro: Alert and oriented x4. Cranial nerves 2-12 grossly intact. No focal deficits appreciated. Psych: Normal mood and affect. Results AMB Urinalysis, Automated UA Leukoctes 125 Anum/uL Last Edit by SURINDER Modi on 09/02/23 13:15 UA Nitrite Negative Last Edit by SURINDER Modi on 09/02/23 13:15 UA Urobilinogen 0.2 mg/dL Last Edit by SURINDER Modi on 09/02/23 13:15 UA Protein 100 mg/dL Last Edit by SURINDER Modi on 09/02/23 13:15 UA pH 6.5 Last Edit by SURINDER Modi on 09/02/23 13:15 UA Blood 200 Salas/uL Last Edit by SURINDER Modi on 09/02/23 13:15 UA Specific [place] 1.010 Last Edit by SURINDER Modi on 09/02/23 13:15 UA Ketone Negative Last Edit by SURINDER Modi on 09/02/23 13:15 UA Bilirubin 0 mg/dL Last Edit by SURINDER Modi on 09/02/23 13:15 UA Glucose 0 mg/dL Last Edit by SURINDER Modi on 09/02/23 13:15 Assessment & Plan Assessment & Plan (1) Urinary tract infection with hematuria: Code(s): N39.0 - Urinary tract infection, site not specified; R31.9 - Hematuria, unspecified Plan Patient has presenting to the office complaining of urinary symptoms including dysuria andurinary frequency. POCT urinalysis shows 2+ leukocyte esterase and 3+ blood. Patient's vital signs are stable, physical exam is otherwise benign, and patient is overall nontoxic appearing. No CVA tenderness or systemic symptoms to suggest acute pyelonephritis. Patient is safe to be discharged home. History and physical most consistent with an acute uncomplicated cystitis. PO trimethoprim-sulfamethozaole twice daily x 7 days. Sent a probiotic as well. Recommended symptomatic management including increased fluids, Advil/Tylenol as needed for pain as long as patient has no medical contraindications, and PO phenazopyridine three times daily as needed x 3 days. Patient was advised to follow-up here or proceed directly to the emergency room if they were to develop fever/chills, nausea/vomiting, flank/back pain, or worsening/persistent symptoms. Patient verbalizes understanding and they are in agreement with the plan. Orders: Orders AMB Urinalysis Automated Today Z13.9 - Encounter for screening, unspecified Medications: New sulfamethoxazole-trimethoprim 800-160 mg 1 tab PO BID 14 tabs 0RF phenazopyridine 100 mg PO TID PRN 6 tabs 0RF pain lactobacillus combination no.9 (Adult 50 Plus Probiotic) administer with a meal 4,000 mmu cells PO DAILY 7 caps 0RF Coding Level of Care Code Est Pt Level 3 (16918) Diagnoses Urinary tract infection with hematuria N39.0; R31.9
[2023-09-02 13:07] VITALS: BP 120/70; PULSE 100; O2SAT 90
== END 2023-09-02 13:44 | disposition home or self-care (01) ==
PROVIDERS: PCP Nurse Practitioner Family; Visit Provider Physician Assistant Medical
DX: N39.0 Urinary tract infection, site not specified (principal); R31.9 Hematuria, unspecified
CPT/HCPCS: 81003; 99213

== ENCOUNTER 2023-09-05 15:13 | Outpatient (AMB) | payer OTHER, SELFPAY ==
--- NOTE | 2023-09-05 15:19 | MHC.PC.OV ---
Vital Signs 09/05/23 15:20 Height 4 ft 11 in Weight 136 lb 4 oz BMI 27.5 BP 126/70 Blood Pressure Location Rt brachial Position Sitting Pulse 99 Pulse Source Pulse Oximeter Pulse Oximetry (%) 92 Oxygen Delivery Method Room Air Intake Visit Reasons: F/U Stomach Issues Intake Note: pt is here for a follow up on everything since she has not been here in over a year Allergies No Known Allergies Allergy (Verified 09/05/23 15:23) Medication List - Last Reconciled 09/05/23 by Maximilian Mae, [employer] albuterol sulfate 0.63 mg (3 mL) inhalation QID PRN albuterol sulfate 90 mcg/actuation 1 puff PO QID PRN alprazolam 0.5 mg PO BEDTIME PRN blood pressure monitor As directed calcium carbonate-vitamin D3 600 mg-5 mcg (200 unit) 1 tab PO DAILY 30 days cholecalciferol (vitamin D3) 50 mcg PO DAILY crutches (pair of crutches) As directed CPT E0114 dextroamphetamine-amphetamine 30 mg 1 tab PO TID dicyclomine 10 mg PO TID docusate sodium 100 mg PO BEDTIME furosemide 20 mg PO Q OTHER DAY PRN gabapentin 800 mg (2 x 400 mg) PO QID 30 days [HurryCane As directed] hydrochlorothiazide 12.5 mg PO DAILY lactobacillus combination no.9 (Adult 50 Plus Probiotic) 4,000 mmu cells PO DAILY Lactobacillus rhamnosus GG (Probiotic Digestive Care) ONE CAP orally DAILY losartan 50 mg PO DAILY methylcellulose (laxative) (Citrucel) 500 mg PO DAILY morphine 15 mg PO Q6H PRN 30 days nebulizer and compressor Use every eight hours or as needed for acute shortness of breath or wheezing ondansetron 4 mg PO Q8H PRN 30 days phenazopyridine 100 mg PO TID PRN 6 doses prednisone 5 mg PO DAILY 30 days sennosides (Natural Senna Laxative) 8.6 mg PO BEDTIME sulfamethoxazole-trimethoprim 800-160 mg 1 tab PO BID Tobacco use date assessed: 09/05/23 Dental Screening Dental Screen Date: 09/05/23 Did you have a dental visit in the last 12 months?: No Did you have a dental problem in the last 6 months where you did not have access to dental care?: No Was dental information given to patient?: No HPI F/U Stomach Issues HPI Details HTN: Blood pressure is stable, managed with hydrochlorothiazide 12.5mg and losartan 50mg. Denies chest pain, shortness of breath, headache, dizziness, and blurred vision. Pt follows up with pulmonology. 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 Social History Household Members: None Housing: Condominium Do you presently have visiting nurse or other home services: No Alcohol intake: never Patient Tobacco Use Status: Current everyday Tobacco user Tobacco use type: Cigarette Cigarettes Per Day: 1 Years Smoked: 30 Packs per year/per ci.50 e-Cigarette/Vaping Use: Never Used Second Hand Smoke Exposure: No Advance Directives Date on File: 08/05/21 service: No Current occupational status: disabled Cognitive needs: No Hearing needs: No Vision needs: No Questionnaire Thrive Questionnaire Date Thrive assessed: 05/12/22 CESAR-7 AMB Questionnaire CESAR-7 Date CESAR - 7 assessed: 05/12/22 Source: Developed by Drs. Michele Pierce, Jenny Del Rio, Rupert Sanchez and colleagues, with an educational esme from [employer]. Review of Systems Const Reports as per HPI Physical exam (Primary Care) Vital Signs: Last Vital Signs Pulse 99 09/05/23 15:20 BP 126/70 09/05/23 15:20 Pulse Ox 92 09/05/23 15:20 Oxygen Delivery Method Room Air 09/05/23 15:20 BMI result Body Mass Index 27.5 Tobacco/Smoking Status: Tobacco use Status Tobacco use date assessed 09/05/23 09/05/23 15:30 Patient Tobacco Use Status Current everyday Tobacco 09/05/23 15:30 Tobacco use type Cigarette 09/05/23 15:30 e-Cigarette/Vaping Use Never Used 09/05/23 15:30 Thrive Assessment: Date of Thrive Assessment Date Thrive assessed 05/12/22 09/05/23 15:30 Const General: cooperative Orientation/consciousness: patient oriented x3 Limitations: ambulation with cane Resp Other: crackles throughout Effort & Inspection: normal respiratory effort Cardio Rate: regular rate Rhythm: regular rhythm Heart sounds: S1 normal heart sound present and S2 normal heart sound present Neuro General: patient oriented x3 Psych Appearance: grossly normal Mental Status: mental status grossly normal Speech and movement: Normal speech and movement present Affect: normal affect Attitude: cooperative Thought process: Normal thought process present Thought content: Normal thought content present Insight: Good insight present (Psych) Judgement: Good judgement present (Psych) Assessment and Plan Assessment & Plan (1) HTN (hypertension): Comment: take BP at home, call the office with 4-5 readings Code(s): I10 - Essential (primary) hypertension Plan: Labs ordered Plan The patient agreed to the use of a medical physics researcher for this encounter. Scribed for GARCIA Morse by Mis Horner medical physics researcher, on 09/05/2023 at 15:45 EST Orders: Orders TSH reflex Free T4 Today I10 - Essential (primary) hypertension Lipid Panel Today I10 - Essential (primary) hypertension Complete Blood Count Auto Diff Today I10 - Essential (primary) hypertension Comprehensive [place]. Panel Fast Today I10 - Essential (primary) hypertension UA CC w/rflx Micro + Cult Today I10 - Essential (primary) hypertension Referrals Gastroenterology Referral Z12.11 - Encounter for screening for malignant neoplasm of colon, Z12.12 - Encounter for screening for malignant neoplasm of rectum Coding Level of Care Code Est Pt Level 3 (26082) Diagnoses HTN (hypertension) I10
[2023-09-05 15:20] VITALS: BP 126/70; PULSE 99; O2SAT 92; BMI 27.5
== END 2023-09-05 16:53 | disposition home or self-care (01) ==
PROVIDERS: PCP Nurse Practitioner Family; Visit Provider Nurse Practitioner Family
DX: I10 Essential (primary) hypertension (principal)
CPT/HCPCS: 99213

== ENCOUNTER 2023-09-23 13:20 | Outpatient (AMB) | payer OTHER, SELFPAY ==
--- NOTE | 2023-09-23 13:21 | MHC.OFFVIS ---
Intake Vital Signs 09/23/23 13:30 Height 4 ft 11 in Weight 133 lb 4 oz BMI 26.9 BP 125/88 Blood Pressure Location Lt brachial Position Sitting Pulse 92 Pulse Source Pulse Oximeter Pulse Oximetry (%) 97 Oxygen Delivery Method Room Air Intake Visit Reasons: Pill count/Confirmed Intake Note: Amna comes in today for a pill count to morphine, patient should have 84 tablets and presents with 87 tablets which she last took today 09/23/23 at 12pm. Pain today 05/07. Transfer Clerk Required: No Accompanied by: Self / Same As Patient Allergies No Known Allergies Allergy (Verified 09/23/23 13:32) HPI HPI Comments History of Present Illness Details Patient presents today for a pill count. Patient is supposed to have #84 pills in her possession and presents with #87 pills. This demonstrates a responsible attitude towards her regimen. Patient reports adequate analgesia on morphine 15 mg QID prn. She denies any side effects. Denies any fever, dizziness, dyspnea, shortness of breaths, chest pain or tightness, headaches, constipation, nausea, sedation, or urinary retention. Patient reports ongoing GI symptoms and was recently seen in Walk-in clinic for urinary symptoms. She has pending labs ordered by GI, PCP and Cardiology providers and was reminded to complete labs. 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 Social History Household Members: None Housing: Condominium Do you presently have visiting nurse or other home services: No Alcohol intake: never Patient Tobacco Use Status: Current everyday Tobacco user Tobacco use type: Cigarette Cigarettes Per Day: 1 Years Smoked: 30 e-Cigarette/Vaping Use: Never Used Second Hand Smoke Exposure: No Advance Directives Date on File: 08/05/21 service: No Current occupational status: disabled Cognitive needs: No Hearing needs: No Vision needs: No Review of Systems Const All systems reviewed & are unremarkable except as noted in HPI and below Physical Exam General: Appears afebrile. Alert and oriented. Mood and affect appropriate. Follows and participates in conversation appropriately. Respiratory effort is unlabored. No cough. Able to transition from sit to stand unassisted. Uses cane with ambulation. Psych Appearance: grossly normal and well kempt Mental Status: mental status grossly normal Speech and movement: Normal speech and movement present and Clear speech present Affect: normal affect Attitude: cooperative Thought process: Normal thought process present Thought content: Normal thought content present, suicidality (none), no hallucinations and No Depressive thoughts present Insight: Good insight present (Psych) Judgement: Good judgement present (Psych) Assessment & Plan Assessment & Plan (1) Complex regional pain syndrome of right lower extremity: Code(s): G90.521 - Complex regional pain syndrome I of right lower limb (2) Chronic pain syndrome: Code(s): G89.4 - Chronic pain syndrome (3) Lumbar degenerative disc disease: Code(s): M51.36 - Other intervertebral disc degeneration, lumbar region (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 There is no evidence of misuse, abuse or diversion at this time. [facility] reviewed. Script for Morphine IR 15 mg QID with an advanced date of 10/15/23. Patient reports adequate analgesia without side effects. Discussed with the patient the risks associated with benzodiazepine and opioid use. Patient is aware and verbalized agreement to take the medications at least two hours apart and does have Narcan at home. All questions were answered and patient is in agreement of plan. Follow up in 4-5 weeks for a pill count or sooner as needed. Medications: Refilled morphine Partial Fill upon patient request. 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
[2023-09-23 13:30] VITALS: BP 125/88; PULSE 92; O2SAT 97; BMI 26.9
== END 2023-09-23 13:52 | disposition home or self-care (01) ==
PROVIDERS: PCP Nurse Practitioner Family; Visit Provider Nurse Practitioner Family
DX: G90.521 Complex regional pain syndrome I of right lower limb (principal); G89.4 Chronic pain syndrome; M51.36 Other intervertebral disc degeneration, lumbar region; Z79.891 Long term (current) use of opiate analgesic
CPT/HCPCS: 99214

== ENCOUNTER → 2023-09-23 13:20 | Outpatient (BNVA) | payer OTHER, SELFPAY | PROVIDERS: PCP Nurse Practitioner Family; Visit Provider Nurse Practitioner Family | DX: G90.521 Complex regional pain syndrome I of right lower limb (principal); M51.36 Other intervertebral disc degeneration, lumbar region; M41.9 Scoliosis, unspecified; G89.4 Chronic pain syndrome; Z79.891 Long term (current) use of opiate analgesic | CPT/HCPCS: 99212 ==

== ENCOUNTER 2023-10-04 13:34 | Outpatient (REF) | payer OTHER, SELFPAY ==
[2023-10-04 16:17] LABS: Appearance Urine Clear; Color Urine Dark Yellow; Glucose Urine UA Negative (Negative); Leukocyte Esterase Urine Negative (Negative); Nitrite Urine Negative (Negative); Specific Gravity - Urine 1.015 (1.005-1.025); Urine Blood Negative (Negative); Urine Ketones Negative (Negative); Urine Protein Negative (Neg-Trace)
[2023-10-04 16:19] LABS: MANUAL DIFF FLAG NO
[2023-10-04 16:26] LABS: Basophils Absolute Auto 0.1 X10*3/uL (0.0-0.2); Basophils Percent Auto 0.6 % (0-2); Eosinophils Absolute Auto 0.2 X10*3/uL (0.0-0.4); Eosinophils Percent Auto 2.1 % (0-4); Hematocrit 38.5 % (37.0-47.0); Hemoglobin 12.3 g/dl (12.0-16.0); Imm Gran Abs Auto 0.02 X10*3/uL (0.00-0.03); Imm Gran Pct Auto 0.2 % (0.0-0.4); Lymphocytes Absolute Auto 2.6 X10*3/uL (1.2-4.9); Lymphocytes Percent Auto 31.6 % (20-40); Mean Corpuscular HGB Conc 31.9 g/dl (31.0-35.0); Mean Corpuscular Hemoglobin 29.2 pg (27.0-33.0); Mean Corpuscular Volume 91.4 fL (80.0-98.0); Mean Platelet Volume 11.2 fL (9.4-12.3); Monocytes Absolute Auto 0.5 X10*3/uL (0.1-1.2); Monocytes Percent Auto 6.1 % (2-11); Neutrophils Absolute Auto 4.8 x10*3/uL (2.0-8.3); Neutrophils Percent Auto 59.4 % (45-73); Platelet Count 340 X10*3/uL (160-400); Red Blood Count 4.21 X10*6/uL (4.20-5.50); Red Cell Distribution Width 17.1 % (11.0-16.0); White Blood Count 8.1 X10*3/uL (4.8-10.8)
[2023-10-04 16:48] LABS: Alanine Aminotransferase 12 U/L (0-31); Albumin Level 3.6 g/dL (3.5-5.0); Alkaline Phosphatase 89 U/L (39-117); Anion Gap 10 (12-20); Aspartate Amino Transferase 23 U/L (5-31); Bilirubin Total 0.3 mg/dL (0.0-1.0); Blood Urea Nitrogen 4 mg/dL (9-16); Calcium 9.3 mg/dL (8.4-10.2); Carbon Dioxide 31 mmol/L (22-29); Chloride 102 mmol/L (96-108); Cholesterol 159 mg/dL (<200); Estimated Glomerular Filt Rate > 60; Glucose Fasting 90 mg/dL (60-99); HDL Cholesterol 59 mg/dL (>40); LDL Cholesterol Calculated 87 mg/dL (<100); Lipase 15 U/L (8-78); Magnesium 2.1 mg/dL (1.6-2.6); Sodium 139 mmol/L (135-145); Triglycerides 68 mg/dL (<150)
[2023-10-04 17:05] LABS: TSH reflex Free T4 1.06 uIU/mL (0.32-4.0)
[2023-10-04 17:09] LABS: Folate 3.8 ng/mL (> or = 4.0); Vitamin B12 560 pg/mL (200-900)
[2023-10-10 12:08] LABS: Vitamin A 20 mcg/dL (38-98); Vitamin D 25-OH, D2 <4 ng/mL; Vitamin D 25-OH, D3 24 ng/mL; Vitamin D 25-OH, Total 24 ng/mL (30-100)
[2023-10-11 12:22] LABS: Nicotinamide <20 ng/mL; Vit B3 - Nicotinic Acid <20 ng/mL
== END 2023-10-04 13:35 | disposition home or self-care (01) ==
LOC: HO.HMGCLDS 13:34
PROVIDERS: Nurse Practitioner Family; PCP Nurse Practitioner Family; Visit Provider Nurse Practitioner Family
DX: I10 Essential (primary) hypertension (principal); R10.9 Unspecified abdominal pain; K86.89 Other specified diseases of pancreas; R19.7 Diarrhea, unspecified; E55.9 Vitamin D deficiency, unspecified
CPT/HCPCS: 36415; 80053; 80061; 81003; 82306; 82607; 82746; 83690; 83735; 84443; 84590; 84591; 85025

== ENCOUNTER 2023-10-06 15:01 | Outpatient (AMB) | payer OTHER, SELFPAY ==
[2023-10-06 15:07] VITALS: BP 114/72; PULSE 83; BMI 26.4
--- NOTE | 2023-10-06 15:07 | MHC.OFFVIS ---
Intake Vital Signs 10/06/23 15:07 Height 4 ft 11 in Weight 130 lb 15.273 oz BMI 26.4 BP 114/72 Blood Pressure Location Lt brachial Position Sitting Pulse 83 Pulse Source Pulse Oximeter Intake Visit Reasons: F/U Allergies No Known Allergies Allergy (Verified 10/06/23 15:10) Medication List - Last Reconciled 10/06/23 by TRACIE Gonzalez albuterol sulfate 0.63 mg (3 mL) inhalation QID PRN albuterol sulfate 90 mcg/actuation 1 puff PO QID PRN alprazolam 0.5 mg PO BEDTIME PRN blood pressure monitor As directed calcium carbonate-vitamin D3 600 mg-5 mcg (200 unit) 1 tab PO DAILY 30 days cholecalciferol (vitamin D3) 50 mcg PO DAILY crutches (pair of crutches) As directed CPT E0114 dextroamphetamine-amphetamine 30 mg 1 tab PO TID dicyclomine 10 mg PO TID docusate sodium 100 mg PO BEDTIME folic acid 1 mg PO DAILY furosemide 20 mg PO Q OTHER DAY PRN gabapentin 800 mg (2 x 400 mg) PO QID 30 days [HurryCane As directed] hydrochlorothiazide 12.5 mg PO DAILY L.crispat,gasseri,tinsley,rhamn 15 billion cell (Culturee Women's Healthy Balance) caps PO lactobacillus combination no.9 (Adult 50 Plus Probiotic) 4,000 mmu cells PO DAILY Lactobacillus rhamnosus GG (Probiotic Digestive Care) ONE CAP orally DAILY losartan 50 mg PO DAILY methylcellulose (laxative) (Citrucel) 500 mg PO DAILY morphine 15 mg PO Q6H PRN 30 days nebulizer and compressor Use every eight hours or as needed for acute shortness of breath or wheezing ondansetron 4 mg PO Q8H PRN 30 days prednisone 5 mg PO DAILY 30 days sennosides (Natural Senna Laxative) 8.6 mg PO BEDTIME HPI F/U HPI Details Amna is a 63-year-old female with past medical history of hypertension, interstitial lung disease, cor pulmonale who presents for follow-up. Today she reports that her breathing is somewhat stable. She follows with Dr. South for pulmonology. She wears oxygen as needed at home. She has not needed p.r.n. Lasix in over a year. She gets short of breath with physical activities such as stair climbing and walking distances which is not new. When climbing stairs at her home and carrying groceries she has noticed some discomfort in her chest. She is unclear if this is from her shortness of breath at that time or not. She has not had chest discomfort at other times. No palpitations, presyncope, syncope, PND, orthopnea or edema. Taking meds as directed. 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 Social History Household Members: None Housing: Condominium Do you presently have visiting nurse or other home services: No Alcohol intake: never Patient Tobacco Use Status: Current everyday Tobacco user Tobacco use type: Cigarette Cigarettes Per Day: 1 Years Smoked: 30 e-Cigarette/Vaping Use: Never Used Second Hand Smoke Exposure: No Advance Directives Date on File: 08/05/21 service: No Current occupational status: disabled Cognitive needs: No Hearing needs: No Vision needs: No Review of Systems Const Details: ambulates with cane All systems reviewed & are unremarkable except as noted in HPI and below ENT Denies dizziness Card Denies chest pain, Denies chest pain at rest, Reports chest pain with activity, Denies rapid heart rate, Denies pedal edema, Denies edema, Denies leg edema, Denies lightheadedness, Denies palpitations, Reports dyspnea, Reports dyspnea on exertion and Denies orthopnea Resp Denies cough, Reports dyspnea and Reports dyspnea on exertion GI Denies hematochezia and Denies change in stool character Musc Denies abnormal gait, Denies limited range of motion, Denies muscle cramps, Denies muscle weakness, Denies numbness, Denies radiating pain into limb, Denies stiffness and Denies tingling Neuro Denies abnormal gait, Denies dizziness, Denies numbness and Denies tingling Endo Denies palpitations Physical Exam Vital Signs: Last Vital Signs Pulse 83 10/06/23 15:07 BP 114/72 10/06/23 15:07 BMI result Body Mass Index 26.4 Const General: cooperative, healthy appearing, comfortable and no acute distress Orientation/consciousness: patient oriented x3 Neck Neck: Yes normal visual inspection Chest Other: coarse rales 1/2 up bilaterally Resp Effort & Inspection: normal respiratory effort Auscultation: no wheezes Cardio Jugular venous distension: no JVD Rate: regular rate Rhythm: regular rhythm Heart sounds: S1 normal heart sound present, S2 normal heart sound present, no murmurs and no rubs Skin General skin exam: no rashes or lesions noted Neuro General: patient oriented x3 Extrem General: Yes normal to inspection, No no pedal edema and No calf tenderness Psych Appearance: grossly normal Mental Status: mental status grossly normal Speech and movement: Normal speech and movement present Assessment & Plan Assessment & Plan (1) Chronic cor pulmonale: Code(s): I27.81 - Cor pulmonale (chronic) Plan: History of right heart failure, RV strain in the past. Known history of chronic interstitial lung disease. Maintained on low-dose steroids, p.r.n. O2. Follows closely with pulmonology. No recent hospitalizations for right heart failure. She has Lasix to use as needed which she has not used in over 1 year. Last echocardiogram done 03/01/2023 showed EF 61%, RV normal, no pulmonary hypertension. Lungs with coarse rales on examination, consistent with interstitial lung disease. She does not appear to have any respiratory distress at this time. No change to treatment plan made. Cardiology follow-up 6 months, sooner if needed. (2) ILD (interstitial lung disease): Code(s): J84.9 - Interstitial pulmonary disease, unspecified (3) Chest discomfort: Code(s): R07.89 - Other chest pain Plan: Report of chest discomfort that has occurred when climbing stairs and carrying her groceries. She also describes increased respiratory difficulty at that time. Her symptom could be musculoskeletal related in the setting of her shortness of breath. Last echocardiogram did show basal inferior and inferior septal hypokinesis. She has no known history of coronary artery disease. Her cardiac risk factors are hypertension and age. A CT scan of the chest done on 08/05/2023 shows no coronary artery calcifications. This is reassuring. Discussed obtaining cardiac stress test to evaluate for ischemia and she declines. She will continue to monitor this symptom and let us know if there is any change in frequency or character. Signs and symptoms of angina reviewed with her. Blood pressure currently well controlled. (4) Essential hypertension: Code(s): I10 - Essential (primary) hypertension Plan: Well controlled. No med changes made. Continue losartan and hydrochlorothiazide. This past year she has tried stopping her medications but tells me that her blood pressure was very elevated afterwards. (5) Dyspnea on exertion: Code(s): R06.00 - Dyspnea, unspecified Coding Level of Care Code Est Pt Level 3 (92058) Diagnoses Chronic cor pulmonale I27.81 ILD (interstitial lung disease) J84.9 Chest discomfort R07.89 Essential hypertension I10 Dyspnea on exertion R06.00 Time Spent (min) 24
== END 2023-10-06 15:40 | disposition home or self-care (01) ==
PROVIDERS: PCP Nurse Practitioner Family; Visit Provider Nurse Practitioner Family
DX: I27.81 Cor pulmonale (chronic) (principal); J84.9 Interstitial pulmonary disease, unspecified; R07.89 Other chest pain; I10 Essential (primary) hypertension; R06.00 Dyspnea, unspecified
CPT/HCPCS: 99213

== ENCOUNTER → 2023-10-06 15:01 | Outpatient (BNVA) | payer OTHER, SELFPAY | PROVIDERS: PCP Nurse Practitioner Family; Visit Provider Nurse Practitioner Family | DX: I27.81 Cor pulmonale (chronic) (principal); I10 Essential (primary) hypertension; J84.9 Interstitial pulmonary disease, unspecified; R07.89 Other chest pain; R06.00 Dyspnea, unspecified | CPT/HCPCS: 99212 ==

== ENCOUNTER 2023-10-25 13:38 | Outpatient (AMB) | payer OTHER, SELFPAY ==
--- NOTE | 2023-10-25 13:52 | A.OFFVIS_ITS ---
Intake Vital Signs 10/25/23 13:59 Height 4 ft 11 in Weight 130 lb BMI 26.3 BP 171/76 H Blood Pressure Location Lt brachial Position Sitting Pulse 85 Pulse Source Pulse Oximeter Pulse Oximetry (%) 97 Oxygen Delivery Method Room Air Intake Visit Reasons: pill count/ random uds confirmed Intake Note: Amna came in today for a pill count to morphine, patient should have 76 tablets and presents with 78 tablets which she last took today 10/25/23 at 12pm. Pain today 4.5/10. Patient will also have random UDS done in office, patient will have an oral swab done due to not being able to urinate. Talent Scout Required: No Accompanied by: Self / Same As Patient Allergies No Known Allergies Allergy (Verified 10/25/23 14:01) HPI HPI Comments History of Present Illness Details Patient presents today for a pill count. Patient is supposed to have #76 pills in her possession and presents with #78 pills. This demonstrates a responsible attitude towards her regimen. Patient reports adequate analgesia on morphine 15 mg QID prn. She denies any side effects. Denies any fever, dizziness, shortness of breaths, chest pain or tightness, headaches, constipation, nausea, sedation, or urinary retention. Patient reports chronic fatigue, decreased appetite, intermittent dyspnea with fibrosis, pulmonary nodule, interstitial lung disease, CHF and chronic pain. [place] [facility] [place] [facility] regularly. 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 Social History Household Members: None Housing: Condominium Do you presently have visiting nurse or other home services: No Alcohol intake: never Patient Tobacco Use Status: Current everyday Tobacco user Tobacco use type: Cigarette Cigarettes Per Day: 1 Years Smoked: 30 e-Cigarette/Vaping Use: Never Used Second Hand Smoke Exposure: No Advance Directives Date on File: 08/05/21 service: No Current occupational status: disabled Cognitive needs: No Hearing needs: No Vision needs: No Review of Systems Const All systems reviewed & are unremarkable except as noted in HPI and below Reports as per HPI, Denies body aches, Denies chills, Reports fatigue, Denies fever(s), Reports lethargy, Denies malaise, Reports poor appetite, Denies weakness and Denies weight loss Neuro Denies weakness Endo Reports fatigue Physical Exam General: Appears afebrile. Alert and oriented. Mood and affect appropriate. Follows and participates in conversation appropriately. Respiratory effort is unlabored. No cough. Able to transition from sit to stand unassisted. Uses cane with ambulation. Psych Appearance: grossly normal and well kempt Mental Status: mental status grossly normal Speech and movement: Normal speech and movement present and Clear speech present Affect: normal affect Attitude: cooperative Thought process: Normal thought process present Thought content: Normal thought content present, suicidality (none), no hallucinations and No Depressive thoughts present Insight: Good insight present (Psych) Judgement: Good judgement present (Psych) Results Reviewed Results Reviewed: XR THORACOLUMBAR SPINE 01/03/23 FINDINGS: There is bony demineralization. Vertebral body heights are normal. There is a mild lower thoracic dextroscoliosis. There is mild degenerative disc disease at T8-T9, and moderate degenerative disc disease seen at T11-T12 and T12-L1. The remaining thoracic disc spaces are relatively well-maintained. No acute fracture or spondylolisthesis is seen. There is mild thoracic spondylosis. The posterior elements are intact. The paravertebral soft tissues are unremarkable. IMPRESSION: 1. There is a mild lower thoracic dextroscoliosis. 2. There is mild degenerative disc disease at T8-T9, and moderate degenerative disease is seen at T11-T12 and T12-L1. XR LUMBOSACRAL SPINE 01/03/23 COMPARISON: Radiographs dated 08/09/2019 TECHNIQUE: AP, bilateral oblique and lateral (neutral, flexion and extension) views of the lumbar spine and lateral view of the lumbosacral junction. FINDINGS: There is bony demineralization. There is a mild lumbar levoscoliosis. Vertebral body heights are normal. At L1-L2, there is a 4 mm retrolisthesis. The remaining disc spaces are relatively well-maintained. No acute fracture or spondylolisthesis is seen. There is no instability with flexion or extension. The posterior elements are intact. No spondylolysis defect is seen. There is multi-level lumbar facet arthropathy. The paravertebral soft tissues are unremarkable. There are aortoiliac atherosclerotic calcifications. IMPRESSION: 1. There is moderate degenerative disc disease at L1-L2. 2. No acute fracture or spondylolisthesis is seen. 3. There is multi-level lumbar facet arthropathy. 4. There is a mild lumbar levoscoliosis. 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 There is no evidence of misuse, abuse or diversion at this time. [employer]PAT reviewed. Script for Morphine IR 15 mg QID with an advanced date of 11/13/23. Patient reports ad equate analgesia without side effects. Discussed with the patient the risks associated with benzodiazepine and opioid use. Patient is aware and verbalized agreement to take the medications at least two hours apart and does have Narcan at home. All questions were answered and patient is in agreement of plan. Follow up in 4-5 weeks for a pill count or sooner as needed. Medications: Refilled morphine Partial Fill upon patient request. 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
[2023-10-25 13:59] VITALS: BP 171/76; PULSE 85; O2SAT 97; BMI 26.3
== END 2023-10-25 14:00 | disposition home or self-care (01) ==
PROVIDERS: PCP Nurse Practitioner Family; Visit Provider Nurse Practitioner Family
DX: G90.521 Complex regional pain syndrome I of right lower limb (principal); G89.4 Chronic pain syndrome; M51.36 Other intervertebral disc degeneration, lumbar region; Z79.891 Long term (current) use of opiate analgesic
CPT/HCPCS: 99214

== ENCOUNTER → 2023-10-25 13:38 | Outpatient (BNVA) | payer OTHER, SELFPAY | PROVIDERS: PCP Nurse Practitioner Family; Visit Provider Nurse Practitioner Family | DX: Z51.81 Encounter for therapeutic drug level monitoring (principal); F11.20 Opioid dependence, uncomplicated; G90.521 Complex regional pain syndrome I of right lower limb; M51.36 Other intervertebral disc degeneration, lumbar region; G89.4 Chronic pain syndrome; Z79.891 Long term (current) use of opiate analgesic | CPT/HCPCS: 99212 ==

== ENCOUNTER → 2023-11-23 14:28 | Outpatient (BNVA) | payer OTHER, SELFPAY | PROVIDERS: PCP Nurse Practitioner Family; Visit Provider Nurse Practitioner Family | DX: Z51.81 Encounter for therapeutic drug level monitoring (principal); F11.20 Opioid dependence, uncomplicated | CPT/HCPCS: 99211 ==

== ENCOUNTER 2023-12-22 15:28 | Outpatient (AMB) | payer OTHER, SELFPAY ==
--- NOTE | 2023-12-22 15:29 | A.OFFVIS_ITS ---
Intake Vital Signs 12/22/23 15:48 Height 4 ft 11 in Weight 132 lb BMI 26.7 BP 150/73 H Blood Pressure Location Lt brachial Position Sitting Pulse 101 H Pulse Source Pulse Oximeter Pulse Oximetry (%) 98 Oxygen Delivery Method Room Air Intake Visit Reasons: Pill count/confirmed Intake Note: Amna comes in today for a pill count to morphine, patient should have 76 tablets and presents with 78 tablets which she last took today 12/22/23 at 2pm. Pain today 05/07. Patient also resigned updated opioid contract in office today, copy of signed contract was provided to patient. 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 Patient is supposed to have #76 pills in her possession and presents with #78 pills. This demonstrates a responsible attitude towards her regimen. Patient reports adequate analgesia on morphine 15 mg QID prn. She denies any side effects. Current medication regime allows her to be less symptomatic and more functional. Denies any fever, dizziness, shortness of breaths, chest pain or tightness, headaches, constipation, nausea, sedation, or urinary retention. 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 Social History Household Members: None Housing: Condominium Do you presently have visiting nurse or other home services: No Alcohol intake: never Patient Tobacco Use Status: Current everyday Tobacco user Tobacco use type: Cigarette Cigarettes Per Day: 1 Years Smoked: 30 e-Cigarette/Vaping Use: Never Used Second Hand Smoke Exposure: No Advance Directives Date on File: 08/05/21 service: No Current occupational status: disabled Cognitive needs: No Hearing needs: No Vision needs: No Review of Systems Const All systems reviewed & are unremarkable except as noted in HPI and below Physical Exam Vital Signs: Last Vital Signs Pulse 101 H 12/22/23 15:48 BP 150/73 H 12/22/23 15:48 Pulse Ox 98 12/22/23 15:48 Oxygen Delivery Method Room Air 12/22/23 15:48 BMI result Body Mass Index 26.7 General: Appears afebrile. Alert and oriented. Mood and affect appropriate. Follows and participates in conversation appropriately. Respiratory effort is unlabored. No cough. Able to transition from sit to stand unassisted. Uses cane with ambulation. Psych Appearance: grossly normal and well kempt Mental Status: mental status grossly normal Speech and movement: Normal speech and movement present and Clear speech present Affect: normal affect Attitude: cooperative Thought process: Normal thought process present Thought content: Normal thought content present, suicidality (none), no hallucinations and No Depressive thoughts present Insight: Good insight present (Psych) Judgement: Good judgement present (Psych) Assessment & Plan Assessment & Plan (1) Complex regional pain syndrome of right lower extremity: Code(s): G90.521 - Complex regional pain syndrome I of right lower limb (2) Chronic pain syndrome: Code(s): G89.4 - Chronic pain syndrome (3) Lumbar degenerative disc disease: Code(s): M51.36 - Other intervertebral disc degeneration, lumbar region (4) half-way (current) use of opiate analgesic: Code(s): Z79.891 - half-way (current) use of opiate analgesic Plan Patient has shown accountability for her medication regimen. There is no evidence of misuse, abuse or diversion at this time. [employer]PAT reviewed. Script for Morphine IR 15 mg QID with an advanced date of 01/11/24. Patient reports adequate analgesia without side effects. Discussed with the patient the risks associated with benzodiazepine and opioid use. Patient is aware and verbalized agreement to take the medications at least two hours apart and does have Narcan at home. All questions were answered and patient is in agreement of plan. Follow up in 4 weeks for a pill count or sooner as needed. Medications: Refilled morphine Partial Fill upon patient request. 15 mg PO Q6H 30 days PRN 120 tabs 0RF pain, severe G89.4 - Chronic pain syndrome, G90.521 - Complex regional pain syndrome I of right lower limb, M47.816 - Spondylosis without myelopathy or radiculopathy, lumbar region, M51.36 - Other intervertebral disc degeneration, lumbar region Coding Level of Care Code Est Pt Level 4 (75606) Diagnoses Complex regional pain syndrome of right lower extremity G90.521 Chronic pain syndrome G89.4 Lumbar degenerative disc disease M51.36 half-way (current) use of opiate analgesic Z79.891
[2023-12-22 15:48] VITALS: BP 150/73; PULSE 101; O2SAT 98; BMI 26.7
== END 2023-12-22 16:02 | disposition home or self-care (01) ==
PROVIDERS: PCP Nurse Practitioner Family; Visit Provider Nurse Practitioner Family
DX: G90.521 Complex regional pain syndrome I of right lower limb (principal); G89.4 Chronic pain syndrome; M51.36 Other intervertebral disc degeneration, lumbar region; Z79.891 Long term (current) use of opiate analgesic
CPT/HCPCS: 99214

== ENCOUNTER → 2023-12-22 15:28 | Outpatient (BNVA) | payer OTHER, SELFPAY | PROVIDERS: PCP Nurse Practitioner Family; Visit Provider Nurse Practitioner Family | DX: Z51.81 Encounter for therapeutic drug level monitoring (principal); G90.521 Complex regional pain syndrome I of right lower limb; M51.36 Other intervertebral disc degeneration, lumbar region; G89.4 Chronic pain syndrome; Z79.891 Long term (current) use of opiate analgesic | CPT/HCPCS: 99212 ==

== ENCOUNTER 2024-01-19 14:56 | Outpatient (AMB) | payer OTHER, SELFPAY ==
--- NOTE | 2024-01-19 15:02 | MHC.OFFVIS ---
Intake Vital Signs 01/19/24 15:11 Height 4 ft 11 in Weight 133 lb 6 oz BMI 26.9 BP 138/71 Blood Pressure Location Lt brachial Position Sitting Pulse 92 Pulse Source Pulse Oximeter Pulse Oximetry (%) 98 Oxygen Delivery Method Room Air Intake Visit Reasons: Pill Count/confirmed Intake Note: Amna comes in today for a pill count to morphine, patient should have 84 tablets and presents with 83 tablets which she last took today 01/19/24 at 1pm. Pain today 04/06 Collar Pointer Required: No Accompanied by: Self / Same As Patient Allergies No Known Allergies Allergy (Verified 01/19/24 15:12) HPI HPI Comments History of Present Illness Details Patient presents today for a pill count. Patient is supposed to have #84 pills in her possession and presents with #83 pills. This demonstrates a responsible attitude towards her regimen. Patient reports mild to moderate analgesia on morphine 15 mg QID prn. She denies any side effects. Current medication regime allows her to be less symptomatic and more functional. Denies any fever, dizziness, shortness of breaths, chest pain or tightness, headaches, constipation, nausea, sedation, or urinary retention. Patient reports cold weather increases her symptoms and causes her easy fatigability. Patient reports painful calluses on plantar surface of right foot. She has history of TMA due to osteomyelitis. Patient requests referral to Podiatry services. 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 Social History Household Members: None Housing: Condominium Do you presently have visiting nurse or other home services: No Alcohol intake: never Patient Tobacco Use Status: Current everyday Tobacco user Tobacco use type: Cigarette Cigarettes Per Day: 1 Years Smoked: 30 e-Cigarette/Vaping Use: Never Used Second Hand Smoke Exposure: No Advance Directives Date on File: 08/05/21 service: No Current occupational status: disabled Cognitive needs: No Hearing needs: No Vision needs: No Review of Systems Const All systems reviewed & are unremarkable except as noted in HPI and below Physical Exam General: Appears afebrile. Alert and oriented. Mood and affect appropriate. Follows and participates in conversation appropriately. Respiratory effort is unlabored. No cough. Able to transition from sit to stand unassisted. Uses cane with ambulation. Extrem Other: General: Yes capillary refill normal, Yes no clubbing, cyanosis or edema and Yes no calf tenderness Right lower extremity: foot (Painful plantar calluses. H/o TMA.) Psych Appearance: grossly normal and well kempt Mental Status: mental status grossly normal Speech and movement: Normal speech and movement present and Clear speech present Affect: normal affect Attitude: cooperative Thought process: Normal thought process present Thought content: Normal thought content present, suicidality (none), no hallucinations and No Depressive thoughts present Insight: Good insight present (Psych) Judgement: Good judgement present (Psych) Assessment & Plan Assessment & Plan (1) Foot callus: Code(s): L84 - Corns and callosities (2) Complex regional pain syndrome of right lower extremity: Code(s): G90.521 - Complex regional pain syndrome I of right lower limb (3) History of transmetatarsal amputation of right foot: Code(s): Z89.431 - Acquired absence of right foot (4) Chronic pain syndrome: Code(s): G89.4 - Chronic pain syndrome (5) Lumbar degenerative disc disease: Code(s): M51.36 - Other intervertebral disc degeneration, lumbar region (6) 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 There is no evidence of misuse, abuse or diversion at this time. [employer] reviewed. Script for Morphine IR 15 mg QID with an advanced date of 02/07/24. Patient reports adequate analgesia without side effects. Discussed with the patient the risks associated with benzodiazepine and opioid use. Patient is aware and verbalized agreement to take the medications at least two hours apart and does have Narcan at home. Podiatry Referral for painful right foot calluses. All questions were answered and patient is in agreement of plan. Follow up in 4 weeks for a pill count or sooner as needed. Orders: Referrals Podiatry Referral G90.521 - Complex regional pain syndrome I of right lower limb, L84 - Corns and callosities Medications: Refilled morphine Partial Fill upon patient request. 15 mg PO Q6H 30 days PRN 120 tabs 0RF pain, severe G89.4 - Chronic pain syndrome, G90.521 - Complex regional pain syndrome I of right lower limb, M47.816 - Spondylosis without myelopathy or radiculopathy, lumbar region, M51.36 - Other intervertebral disc degeneration, lumbar region Coding Level of Care Code Est Pt Level 4 (97018) Diagnoses Foot callus L84 Complex regional pain syndrome of right lower extremity G90.521 History of transmetatarsal amputation of right foot Z89.431 Chronic pain syndrome G89.4 Lumbar degenerative disc disease M51.36 penitentiary (current) use of opiate analgesic Z79.891
[2024-01-19 15:11] VITALS: BP 138/71; PULSE 92; O2SAT 98; BMI 26.9
== END 2024-01-19 15:23 | disposition home or self-care (01) ==
PROVIDERS: PCP Nurse Practitioner Family; Visit Provider Nurse Practitioner Family
DX: L84 Corns and callosities (principal); G90.521 Complex regional pain syndrome I of right lower limb; Z89.431 Acquired absence of right foot; G89.4 Chronic pain syndrome; M51.36 Other intervertebral disc degeneration, lumbar region; Z79.891 Long term (current) use of opiate analgesic
CPT/HCPCS: 99214

== ENCOUNTER → 2024-01-19 14:56 | Outpatient (BNVA) | payer OTHER, SELFPAY | PROVIDERS: PCP Nurse Practitioner Family; Visit Provider Nurse Practitioner Family | DX: Z51.81 Encounter for therapeutic drug level monitoring (principal); G90.521 Complex regional pain syndrome I of right lower limb; M51.36 Other intervertebral disc degeneration, lumbar region; L84 Corns and callosities; Z79.891 Long term (current) use of opiate analgesic; Z89.431 Acquired absence of right foot | CPT/HCPCS: 99212 ==

== ENCOUNTER 2024-02-16 15:03 | Outpatient (AMB) | payer OTHER, SELFPAY ==
--- NOTE | 2024-02-16 15:06 | MHC.OFFVIS ---
Intake Vital Signs 02/16/24 15:15 Height 4 ft 11 in Weight 134 lb 6 oz BMI 27.1 BP 112/72 Blood Pressure Location Rt brachial Position Sitting Pulse 108 H Pulse Source Pulse Oximeter Pulse Oximetry (%) 99 Oxygen Delivery Method Room Air Intake Visit Reasons: Pill Count Intake Note: Amna comes in today for a pill count to morphine, patient should have 88 tablets and presents with 92 which she last took today 02/16/24 at 12pm. Pain today 05/07. 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 Patient is supposed to have #88 pills in her possession and presents with #92 pills. This demonstrates a responsible attitude towards her regimen. Patient reports mild to moderate analgesia on morphine 15 mg QID prn. She denies any side effects. Current medication regime allows her to be less symptomatic and more functional. Denies any fever, dizziness, shortness of breaths, chest pain or tightness, headaches, constipation, nausea, sedation, or urinary retention. Patient reports cold weather increases her symptoms and causes her easy fatigability. Patient reports painful calluses on plantar surface of right foot. She has history of TMA due to osteomyelitis. Patient requests referral to Podiatry services to be resubmitted as she has not hear from their office yet. Patient is also suffers from chronic IBS related symptoms and has been getting increasing nausea and decreasing appetite. Denies vomiting but has noted mild weight loss. 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 Social History Household Members: None Housing: Condominium Do you presently have visiting nurse or other home services: No Alcohol intake: never Patient Tobacco Use Status: Current everyday Tobacco user Tobacco use type: Cigarette Cigarettes Per Day: 1 Years Smoked: 30 e-Cigarette/Vaping Use: Never Used Second Hand Smoke Exposure: No Advance Directives Date on File: 08/05/21 service: No Current occupational status: disabled Cognitive needs: No Hearing needs: No Vision needs: No Review of Systems Const All systems reviewed & are unremarkable except as noted in HPI and below Reports as per HPI, Denies body aches, Denies chills, Reports difficulty sleeping, Reports fatigue, Denies fever(s), Denies headache(s), Reports lethargy, Denies malaise, Denies night sweats and Reports weight loss ENT Denies headache(s) GI Reports as per HPI, Denies melena, Denies bloating, Denies hematochezia, Reports constipation, Denies fecal incontinence, Reports diarrhea, Reports nausea and Denies vomiting Neuro Denies headache(s) Endo Reports fatigue Physical Exam Vital Signs: Last Vital Signs Pulse 108 H 02/16/24 15:15 BP 112/72 02/16/24 15:15 Pulse Ox 99 02/16/24 15:15 Oxygen Delivery Method Room Air 02/16/24 15:15 BMI result Body Mass Index 27.1 General: Appears afebrile. Alert and oriented. Mood and affect appropriate. Follows and participates in conversation appropriately. Respiratory effort is unlabored. No cough. Able to transition from sit to stand unassisted. Uses cane with ambulation. GI Inspection: Yes normal to inspection Palpation (GI): Soft to palpation, nontender and no guarding Extrem Other: Photo 01/19/24 General: Yes capillary refill normal, Yes no clubbing, cyanosis or edema and Yes no calf tenderness Right lower extremity: foot (Painful plantar calluses. H/o TMA.) Psych Appearance: grossly normal and well kempt Mental Status: mental status grossly normal Speech and movement: Normal speech and movement present and Clear speech present Affect: normal affect Attitude: cooperative Thought process: Normal thought process present Thought content: Normal thought content present, suicidality (none), no hallucinations and No Depressive thoughts present Insight: Good insight present (Psych) Judgement: Good judgement present (Psych) Results Reviewed Results Reviewed: XR THORACOLUMBAR SPINE 01/03/23 FINDINGS: There is bony demineralization. Vertebral body heights are normal. There is a mild lower thoracic dextroscoliosis. There is mild degenerative disc disease at T8-T9, and moderate degenerative disc disease seen at T11-T12 and T12-L1. The remaining thoracic disc spaces are relatively well-maintained. No acute fracture or spondylolisthesis is seen. There is mild thoracic spondylosis. The posterior elements are intact. The paravertebral soft tissues are unremarkable. IMPRESSION: 1. There is a mild lower thoracic dextroscoliosis. 2. There is mild degenerative disc disease at T8-T9, and moderate degenerative disease is seen at T11-T12 and T12-L1. XR LUMBOSACRAL SPINE 01/03/23 COMPARISON: Radiographs dated 08/09/2019 TECHNIQUE: AP, bilateral oblique and lateral (neutral, flexion and extension) views of the lumbar spine and lateral view of the lumbosacral junction. FINDINGS: There is bony demineralization. There is a mild lumbar levoscoliosis. Vertebral body heights are normal. At L1-L2, there is a 4 mm retrolisthesis. The remaining disc spaces are relatively well-maintained. No acute fracture or spondylolisthesis is seen. There is no instability with flexion or extension. The posterior elements are intact. No spondylolysis defect is seen. There is multi-level lumbar facet arthropathy. The paravertebral soft tissues are unremarkable. There are aortoiliac atherosclerotic calcifications. IMPRESSION: 1. There is moderate degenerative disc disease at L1-L2. 2. No acute fracture or spondylolisthesis is seen. 3. There is multi-level lumbar facet arthropathy. 4. There is a mild lumbar levoscoliosis. Assessment & Plan Assessment & Plan (1) History of transmetatarsal amputation of right foot: Code(s): Z89.431 - Acquired absence of right foot (2) Foot callus: Code(s): L84 - Corns and callosities (3) IBS (irritable bowel syndrome): Code(s): K58.9 - Irritable bowel syndrome without diarrhea Qualifiers: Irritable bowel syndrome type: with both diarrhea and constipation Qualified Code(s): K58.2 - Mixed irritable bowel syndrome (4) Chronic nausea: Code(s): R11.0 - Nausea (5) Complex regional pain syndrome of right lower extremity: Code(s): G90.521 - Complex regional pain syndrome I of right lower limb (6) Chronic pain syndrome: Code(s): G89.4 - Chronic pain syndrome (7) Lumbar degenerative disc disease: Code(s): M51.36 - Other intervertebral disc degeneration, lumbar region (8) intermediate (current) use of opiate analgesic: Code(s): Z79.891 - intermediate (current) use of opiate analgesic Plan Patient has shown accountability for her medication regimen. There is no evidence of misuse, abuse or diversion at this time. [id number] reviewed. Script for Morphine IR 15 mg QID with an advanced date of 03/10/24. Patient reports adequate analgesia without side effects. Discussed with the patient the risks associated with benzodiazepine and opioid use. Patient is aware and verbalized agreement to take the medications at least two hours apart and does have Narcan at home. Patient has been taking Adderall and Alprazolam, infrequently, prescribed by coil winder strap. Referral for Podiatry Services for painful right foot calluses has been resubmitted. GI Referral to Dr. Jean per patient's request for management of IBS with worsening nausea, weight loss and diarrhea/constipation. All questions were answered and patient is in agreement of plan. Follow up in 4 weeks for a pill count or sooner as needed. Orders: Referrals Podiatry Referral L84 - Corns and callosities, Z89.431 - Acquired absence of right foot Gastroenterology Referral K58.9 - Irritable bowel syndrome without diarrhea, R11.0 - Nausea Medications: Refilled morphine Partial Fill upon patient request. 15 mg PO Q6H PRN 120 tabs 0RF pain, severe 30 days G89.4 - Chronic pain syndrome, G90.521 - Complex regional pain syndrome I of right lower limb, M47.816 - Spondylosis without myelopathy or radiculopathy, lumbar region, M51.36 - Other intervertebral disc degeneration, lumbar region Coding Level of Care Code Est Pt Level 4 (95195) Diagnoses History of transmetatarsal amputation of right foot Z89.431 Foot callus L84 Irritable bowel syndrome with both constipation and diarrhea K58.2 Irritable bowel syndrome type: with both diarrhea and constipation Chronic nausea R11.0 Complex regional pain syndrome of right lower extremity G90.521 Chronic pain syndrome G89.4 Lumbar degenerative disc disease M51.36 terminal 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
[2024-02-16 15:15] VITALS: BP 112/72; PULSE 108; O2SAT 99; BMI 27.1
== END 2024-02-16 15:58 | disposition home or self-care (01) ==
PROVIDERS: PCP Nurse Practitioner Family; Visit Provider Nurse Practitioner Family
DX: Z89.431 Acquired absence of right foot (principal); L84 Corns and callosities; K58.2 Mixed irritable bowel syndrome; R11.0 Nausea; G90.521 Complex regional pain syndrome I of right lower limb; G89.4 Chronic pain syndrome; M51.36 Other intervertebral disc degeneration, lumbar region; Z79.891 Long term (current) use of opiate analgesic
CPT/HCPCS: 99214

== ENCOUNTER → 2024-02-16 15:03 | Outpatient (BNVA) | payer OTHER, SELFPAY | PROVIDERS: PCP Nurse Practitioner Family; Visit Provider Nurse Practitioner Family | DX: G90.521 Complex regional pain syndrome I of right lower limb (principal); G89.4 Chronic pain syndrome; M51.36 Other intervertebral disc degeneration, lumbar region; M47.816 Spondylosis without myelopathy or radiculopathy, lumbar region; L84 Corns and callosities; Z79.891 Long term (current) use of opiate analgesic; Z89.431 Acquired absence of right foot | CPT/HCPCS: 99212 ==

== ENCOUNTER 2024-03-06 15:31 | Outpatient (AMB) | payer OTHER, SELFPAY ==
[2024-03-06 15:34] VITALS: BP 104/62; PULSE 96; O2SAT 90; BMI 25.2
--- NOTE | 2024-03-06 15:34 | A.OFFVIS_ITS ---
Intake Vital Signs 03/06/24 15:34 Height 4 ft 11 in Weight 125 lb BMI 25.2 BP 104/62 Blood Pressure Location Lt brachial Position Sitting Pulse 96 Pulse Source Doppler Pulse Oximetry (%) 90 L Oxygen Delivery Method Room Air Intake Visit Reasons: miri Allergies No Known Allergies Allergy (Verified 03/06/24 15:39) HPI miri HPI Details 63-year-old lady with underlying congest jesus heart failure followed for interstitial lung disease, pulmonary nodules, and MIRI.?Her CT chest showed worsening fibrosis increasing had right sided pulmonary nodule.? Her PET scan showed no FDG activity in the nodule. Patient had several follow-up CT chest that shows stability of underlying findings. Her symptoms are well controlled on prednisone 5 mg daily and calcium/vitamin-D. She denies any recent exacerbations. She uses nocturnal oxygen for underlying MIRI. 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 Social History Household Members: None Housing: Condominium Do you presently have visiting nurse or other home services: No Alcohol intake: never Patient Tobacco Use Status: Current everyday Tobacco user Tobacco use type: Cigarette Cigarettes Per Day: 1 Years Smoked: 30 e-Cigarette/Vaping Use: Never Used Second Hand Smoke Exposure: No Advance Directives Date on File: 08/05/21 service: No Current occupational status: disabled Cognitive needs: No Hearing needs: No Vision needs: No Review of Systems Const Denies daytime sleepiness, Denies excessive sweating, Denies fatigue, Denies fever(s), Denies lethargy, Denies malaise, Denies night sweats, Denies snoring and Denies weight loss Eyes Denies blurry vision and Denies itchy eyes ENT Denies nasal congestion, Denies post nasal drip, Denies sinus pain, Denies sinus pressure and Denies other ( Thrush) Card Denies chest pain, Denies pedal edema, Denies dyspnea, Denies orthopnea and Denies paroxysmal nocturnal dyspnea Resp Denies cough, Denies hemoptysis, Denies excessive phlegm production, Denies dyspnea, Denies snoring and Denies wheezing GI Denies abdominal pain and Denies heartburn Musc Denies myalgias, Denies arthralgias and Denies joint swelling Skin/Breast Denies rash Neuro Denies memory loss and Denies seizure-like activity Psych Denies abnormal sleep pattern, Denies anxiety and Denies memory loss Endo Denies excessive sweating, Denies fatigue and Denies heat intolerance Demian/Lymph Denies easy bruising Aller/Immun Denies itchy eyes, Denies seasonal rhinorrhea and Denies wheezing Physical Exam Vital Signs: Last Vital Signs Pulse 96 03/06/24 15:34 BP 104/62 03/06/24 15:34 Pulse Ox 90 L 03/06/24 15:34 Oxygen Delivery Method Room Air 03/06/24 15:34 BMI result Body Mass Index 25.2 Const General: no acute distress and alert Nutritional Appearance: not obese Orientation/consciousness: Other orientation findings ( oriented) HEENT Head: Yes atraumatic Eyes General: appearance normal, both eyes and all related structures Sclerae: sclerae normal EOM: EOMs intact bilaterally Neck Neck: Yes supple Lymphatic: no lymphadenopathy noted Resp Effort & Inspection: normal respiratory effort and no use of accessory muscles Auscultation: clear to auscultation bilaterally Cardio Rate: regular rate Rhythm: regular rhythm Heart sounds: no gallops, no murmurs and no rubs Skin General skin exam: other ( warm) Extrem General: No clubbing, No cyanosis and No edema Assessment & Plan Assessment & Plan (1) ILD (interstitial lung disease): Code(s): J84.9 - Interstitial pulmonary disease, unspecified Plan: No recent exacerbations. Symptoms are controlled on prednisone 5 mg daily and calcium/vitamin-D supplementation. Continue current regimen. (2) Supplemental oxygen dependent: Code(s): Z99.81 - Dependence on supplemental oxygen Plan: Continue supplemental oxygen to maintain O2 saturation of 88-92%. Patient also uses at night for underlying MIRI. (3) Pulmonary nodule: Code(s): R91.1 - Solitary pulmonary nodule Plan: Previously stable pulmonary nodule. Will repeat CT chest in July of 2024. Coding Level of Care Code Est Pt Level 4 (95028) Diagnoses ILD (interstitial lung disease) J84.9 Supplemental oxygen dependent Z99.81 Pulmonary nodule R91.1
== END 2024-03-06 15:56 | disposition home or self-care (01) ==
PROVIDERS: PCP Nurse Practitioner Family; Visit Provider Internal Medicine Pulmonary Disease
DX: J84.9 Interstitial pulmonary disease, unspecified (principal); Z99.81 Dependence on supplemental oxygen; R91.1 Solitary pulmonary nodule
CPT/HCPCS: 99214

== ENCOUNTER → 2024-03-06 15:31 | Outpatient (BNVA) | payer OTHER, SELFPAY | PROVIDERS: PCP Nurse Practitioner Family; Visit Provider Internal Medicine Pulmonary Disease | DX: J84.9 Interstitial pulmonary disease, unspecified (principal); R91.1 Solitary pulmonary nodule; G47.33 Obstructive sleep apnea (adult) (pediatric); Z99.81 Dependence on supplemental oxygen | CPT/HCPCS: 99212 ==

== ENCOUNTER 2024-03-22 15:25 | Outpatient (AMB) | payer OTHER, SELFPAY ==
--- NOTE | 2024-03-22 15:30 | A.OFFVIS_ITS ---
Vital Signs 03/22/24 15:37 Height 4 ft 11 in Weight 125 lb BMI 25.2 BP 120/74 Blood Pressure Location Lt brachial Position Sitting Pulse 95 Pulse Source Pulse Oximeter Pulse Oximetry (%) 97 Oxygen Delivery Method Room Air Intake Visit Reasons: Medication Count Intake Note: Amna comes in today for a pill count to morphine, patient should have 68 tablets and present with 69 tablets which she last took today 03/22/24 at 3PM. Pain today 05/07 Stave Cutting Supervisor Required: No Accompanied by: Self / Same As Patient Allergies No Known Allergies Allergy (Verified 03/22/24 15:43) HPI Comments Details: Patient presents today for a pill count. Patient is supposed to have #68 pills in her possession and presents with #69 pills. This demonstrates a responsible attitude towards her regimen. Patient reports adequate analgesia on morphine 15 mg QID prn. She denies any side effects. Current medication regime allows her to be less symptomatic and more functional. Denies any fever, dizziness, shortness of breaths, chest pain or tightness, headaches, constipation, nausea, sedation, or urinary retention. 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 Social History Household Members: None Housing: Condominium Do you presently have visiting nurse or other home services: No Alcohol intake: never Patient Tobacco Use Status: Current everyday Tobacco user Tobacco use type: Cigarette Cigarettes Per Day: 1 Years Smoked: 30 e-Cigarette/Vaping Use: Never Used Second Hand Smoke Exposure: No Advance Directives Date on File: 08/05/21 service: No Current occupational status: disabled Cognitive needs: No Hearing needs: No Vision needs: No Review of Systems Const All systems reviewed & are unremarkable except as noted in HPI and below Physical Exam General: Appears afebrile. Alert and oriented. Mood and affect appropriate. Follows and participates in conversation appropriately. Respiratory effort is unlabored. No cough. Able to transition from sit to stand unassisted. Uses cane with ambulation. Psych Appearance: grossly normal and well kempt Mental Status: mental status grossly normal Speech and movement: Normal speech and movement present and Clear speech present Affect: normal affect Attitude: cooperative Thought process: Normal thought process present Thought content: Normal thought content present, suicidality (none), no hallucinations and No Depressive thoughts present Insight: Good insight present (Psych) Judgement: Good judgement present (Psych) Results Reviewed Results Reviewed: XR THORACOLUMBAR SPINE 01/03/23 FINDINGS: There is bony demineralization. Vertebral body heights are normal. There is a mild lower thoracic dextroscoliosis. There is mild degenerative disc disease at T8-T9, and moderate degenerative disc disease seen at T11-T12 and T12-L1. The remaining thoracic disc spaces are relatively well-maintained. No acute fracture or spondylolisthesis is seen. There is mild thoracic spondylosis. The posterior elements are intact. The paravertebral soft tissues are unremarkable. IMPRESSION: 1. There is a mild lower thoracic dextroscoliosis. 2. There is mild degenerative disc disease at T8-T9, and moderate degenerative disease is seen at T11-T12 and T12-L1. XR LUMBOSACRAL SPINE 01/03/23 COMPARISON: Radiographs dated 08/09/2019 TECHNIQUE: AP, bilateral oblique and lateral (neutral, flexion and extension) views of the lumbar spine and lateral view of the lumbosacral junction. FINDINGS: There is bony demineralization. There is a mild lumbar levoscoliosis. Vertebral body heights are normal. At L1-L2, there is a 4 mm retrolisthesis. The remaining disc spaces are relatively well-maintained. No acute fracture or spondylolisthesis is seen. There is no instability with flexion or extension. The posterior elements are intact. No spondylolysis defect is seen. There is multi-level lumbar facet arthropathy. The paravertebral soft tissues are unremarkable. There are aortoiliac atherosclerotic calcifications. IMPRESSION: 1. There is moderate degenerative disc disease at L1-L2. 2. No acute fracture or spondylolisthesis is seen. 3. There is multi-level lumbar facet arthropathy. 4. There is a mild lumbar levoscoliosis. 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 There is no evidence of misuse, abuse or diversion at this time. MassPAT reviewed. Script for Morphine IR 15 mg QID with an advanced date of 04/07/24. Patient reports adequate analgesia without side effects. Reviewed with the patient the risks associated with benzodiazepine and opioid use. Patient is aware and verbalized agreement to take the medications at least two hours apart and does have Narcan at home. Patient has been taking Adderall and Alprazolam, infrequently, prescribed by strategic communications manager. All questions were answered and patient is in agreement of plan. Follow up in 4- 5 weeks for a pill count or sooner as needed. Medications: Refilled morphine Partial Fill upon patient request. 15 mg PO Q6H 30 days PRN 120 tabs 0RF pain, severe G89.4 - Chronic pain syndrome, G90.521 - Complex regional pain syndrome I of right lower limb, M47.816 - Spondylosis without myelopathy or radiculopathy, lumbar region, M51.36 - Other intervertebral disc degeneration, lumbar region Coding Level of Care Code Est Pt Level 4 (35509) Diagnoses Complex regional pain syndrome of right lower extremity G90.521 Chronic pain syndrome G89.4 Lumbar degenerative disc disease M51.36 nursing home (current) use of opiate analgesic Z79.891 Dorsalgia of thoracolumbar region M54.6; M54.50
[2024-03-22 15:37] VITALS: BP 120/74; PULSE 95; O2SAT 97; BMI 25.2
== END 2024-03-22 15:52 | disposition home or self-care (01) ==
PROVIDERS: PCP Nurse Practitioner Family; Visit Provider Nurse Practitioner Family
DX: G90.521 Complex regional pain syndrome I of right lower limb (principal); G89.4 Chronic pain syndrome; M51.36 Other intervertebral disc degeneration, lumbar region; Z79.891 Long term (current) use of opiate analgesic; M54.6 Pain in thoracic spine; M54.50 Low back pain, unspecified
CPT/HCPCS: 99214

== ENCOUNTER → 2024-03-22 15:25 | Outpatient (BNVA) | payer OTHER, SELFPAY | PROVIDERS: PCP Nurse Practitioner Family; Visit Provider Nurse Practitioner Family | DX: G90.521 Complex regional pain syndrome I of right lower limb (principal); G89.4 Chronic pain syndrome; M51.36 Other intervertebral disc degeneration, lumbar region; M54.50 Low back pain, unspecified; Z79.891 Long term (current) use of opiate analgesic | CPT/HCPCS: 99212 ==

== ENCOUNTER 2024-03-29 14:01 | Outpatient (AMB) | payer OTHER, SELFPAY ==
--- NOTE | 2024-03-29 14:26 | A.OFFVIS_ITS ---
Vital Signs 03/29/24 14:27 Weight 123 lb 7.342 oz BP 110/64 Blood Pressure Location Rt brachial Position Sitting Pulse 94 Pulse Source Pulse Oximeter Pulse Oximetry (%) 93 Oxygen Delivery Method Room Air Intake Visit Reasons: 6MW Allergies No Known Allergies Allergy (Verified 03/29/24 14:27) Medication List - Last Reconciled 03/29/24 by Bina Wills LPN albuterol sulfate 0.63 mg (3 mL) inhalation QID PRN albuterol sulfate 90 mcg/actuation 1 puff PO QID PRN alprazolam 0.5 mg PO BEDTIME PRN blood pressure monitor As directed calcium carbonate-vitamin D3 600 mg-5 mcg (200 unit) 1 tab PO DAILY cholecalciferol (vitamin D3) 50 mcg PO DAILY COVID-19 antigen test As directed crutches (pair of crutches) As directed CPT E0114 dextroamphetamine-amphetamine 30 mg 1 tab PO TID dicyclomine 10 mg PO TID docusate sodium 100 mg PO BEDTIME folic acid 1 mg PO DAILY food supplemt, lactose-reduced (Ensure oral liquid) 1 ea PO BID furosemide 20 mg PO Q OTHER DAY PRN gabapentin 800 mg (2 x 400 mg) PO QID [HurryCane As directed] hydrochlorothiazide 12.5 mg PO DAILY L.crispat,gasroxanai,tinsley,rhamn 15 billion cell 1 cap PO DAILY 90 days lactobacillus combination no.9 (Adult 50 Plus Probiotic) 4,000 mmu cells PO DAILY Lactobacillus rhamnosus GG (Probiotic Digestive Care) ONE CAP orally DAILY losartan 50 mg PO DAILY methylcellulose (laxative) (Citrucel) 500 mg PO DAILY morphine 15 mg PO Q6H PRN 30 days nebulizer and compressor Use every eight hours or as needed for acute shortness of breath or wheezing ondansetron 4 mg PO Q8H PRN 30 days prednisone 5 mg PO DAILY 30 days sennosides (Natural Senna Laxative) 8.6 mg PO BEDTIME PFSH Medical History Osteomyelitis Lymphadenopathy, mediastinal Respiratory failure Chest pain Congestive heart failure (CHF) 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 Social History Household Members: None Housing: Condominium Do you presently have visiting nurse or other home services: No Alcohol intake: never Patient Tobacco Use Status: Current everyday Tobacco user Tobacco use type: Cigarette Cigarettes Per Day: 1 Years Smoked: 30 e-Cigarette/Vaping Use: Never Used Second Hand Smoke Exposure: No Advance Directives Date on File: 08/05/21 service: No Current occupational status: disabled Cognitive needs: No Hearing needs: No Vision needs: No Physical Exam Vital Signs: Last Vital Signs Pulse 94 03/29/24 14:27 BP 110/64 03/29/24 14:27 Pulse Ox 93 03/29/24 14:27 Oxygen Delivery Method Room Air 03/29/24 14:27 Office Procedures 6 Minute Walk Time:: 14:15 SPO2 % at rest: 93 Pulse at rest: 94 SPO2 % during excercise: 86 Pulse during excercise: 117 SPO2 % after excercise: 92 Pulse after excercise: 111 Distance in yards walked: 120 Tosin Score: 2 Performance Observations:: Amna walked on level ground with the assistance of a cane. She walked on room air for 30 yards before her SPO2 decreased to 86%, O2 started at 2 lpm and with a brief rest her SPO2 increased to 94%. She maintained her SPO2 92-94% on 2 lpm O2 for the remainder of the walk. [id number] - 6 Minute Walk Assessment & Plan Assessment & Plan (1) ILD (interstitial lung disease): Code(s): J84.9 - Interstitial pulmonary disease, unspecified Category: Medical Plan 6 minute walk/supplemental oxygen nurse visit only Orders: Orders AMB 6 minute walk 03/29/24 J84.9 - Interstitial pulmonary disease, unspecified Coding Level of Care Code Established Pt Est Pt Level 1 (64327) Patient Type Established Diagnoses ILD (interstitial lung disease) J84.9 CPT Codes Coding ([id number]) Comment NURSE VISIT ONLY
[2024-03-29 14:27] VITALS: BP 110/64; PULSE 94; O2SAT 93
[2024-03-29 14:30] VITALS: PULSE 94; O2SAT 93
== END 2024-03-29 15:00 | disposition home or self-care (01) ==
PROVIDERS: PCP Nurse Practitioner Family; Visit Provider Internal Medicine Pulmonary Disease
DX: J84.9 Interstitial pulmonary disease, unspecified (principal)

== ENCOUNTER → 2024-03-29 14:01 | Outpatient (BNVA) | payer OTHER, SELFPAY | PROVIDERS: PCP Nurse Practitioner Family; Visit Provider Internal Medicine Pulmonary Disease | DX: J84.9 Interstitial pulmonary disease, unspecified (principal) | CPT/HCPCS: 94618; 99211 ==

== ENCOUNTER 2024-04-09 13:28 | Outpatient (AMB) | payer OTHER, SELFPAY ==
[2024-04-09 13:30] VITALS: BP 116/73; PULSE 88; BMI 25.4
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
== END 2024-04-09 15:17 | disposition home or self-care (01) ==
PROVIDERS: PCP Nurse Practitioner Family; Visit Provider Internal Medicine Gastroenterology
DX: K59.01 Slow transit constipation (principal)
CPT/HCPCS: 99214

== ENCOUNTER → 2024-04-09 13:28 | Outpatient (BNVA) | payer OTHER, SELFPAY | PROVIDERS: PCP Nurse Practitioner Family; Visit Provider Internal Medicine Gastroenterology | DX: K59.01 Slow transit constipation (principal) | CPT/HCPCS: 99212 ==

== ENCOUNTER 2024-04-19 15:14 | Outpatient (AMB) | payer OTHER, SELFPAY ==
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
[2024-04-19 15:32] VITALS: BP 113/76; PULSE 103; O2SAT 98; BMI 25.2
== END 2024-04-19 15:44 | disposition home or self-care (01) ==
PROVIDERS: PCP Nurse Practitioner Family; Visit Provider Nurse Practitioner Family
DX: G90.521 Complex regional pain syndrome I of right lower limb (principal); G89.4 Chronic pain syndrome; M51.36 Other intervertebral disc degeneration, lumbar region; Z79.891 Long term (current) use of opiate analgesic; M54.6 Pain in thoracic spine; M54.50 Low back pain, unspecified; K59.01 Slow transit constipation
CPT/HCPCS: 99214

== ENCOUNTER → 2024-04-19 15:14 | Outpatient (BNVA) | payer OTHER, SELFPAY | PROVIDERS: PCP Nurse Practitioner Family; Visit Provider Nurse Practitioner Family | DX: Z51.81 Encounter for therapeutic drug level monitoring (principal); G90.521 Complex regional pain syndrome I of right lower limb; M51.36 Other intervertebral disc degeneration, lumbar region; M54.6 Pain in thoracic spine; M54.50 Low back pain, unspecified; K59.01 Slow transit constipation; G89.4 Chronic pain syndrome; Z79.891 Long term (current) use of opiate analgesic | CPT/HCPCS: 99212 ==

== ENCOUNTER 2024-04-24 15:48 | Outpatient (AMB) | payer OTHER, SELFPAY ==
[2024-04-24 15:53] VITALS: BP 100/62; PULSE 96; BMI 25.8
--- NOTE | 2024-04-24 15:53 | A.OFFVIS_ITS ---
Vital Signs 04/24/24 15:53 Height 4 ft 11 in Weight 127 lb 13.89 oz BMI 25.8 BP 100/62 Blood Pressure Location Rt brachial Position Sitting Pulse 96 Pulse Source Monitor Intake Visit Reasons: 6 mth fu (rs) Electrical Assistant Required: No Allergies No Known Allergies Allergy (Verified 04/24/24 15:56) Medication List - Last Reconciled 04/24/24 by TRACIE Gonzalez albuterol sulfate 0.63 mg (3 mL) inhalation QID PRN albuterol sulfate 90 mcg/actuation 1 puff PO QID PRN alprazolam 0.5 mg PO BEDTIME PRN blood pressure monitor As directed calcium carbonate-vitamin D3 600 mg-5 mcg (200 unit) 1 tab PO DAILY cholecalciferol (vitamin D3) 50 mcg PO DAILY COVID-19 antigen test As directed crutches (pair of crutches) As directed CPT E0114 dicyclomine 10 mg PO TID docusate sodium 100 mg PO BEDTIME folic acid 1 mg PO DAILY food supplemt, lactose-reduced (Ensure oral liquid) 1 ea PO BID gabapentin 800 mg (2 x 400 mg) PO QID 90 days [HurryCane As directed] hydrochlorothiazide 12.5 mg PO DAILY L.crispa,dave,mike,rhamno-bact 15 billion cell -15 mg ([facility] Women's 4-in-1) caps PO L.crispat,gasseri,tinsley,rhamn 15 billion cell 1 cap PO DAILY 90 days lactobacillus combination no.9 (Adult 50 Plus Probiotic) 4,000 mmu cells PO DAILY losartan 50 mg PO DAILY methylcellulose (laxative) (Citrucel) 500 mg PO DAILY morphine 15 mg PO Q6H PRN 30 days naloxegol (Movantik) 12.5 mg PO QAM nebulizer and compressor Use every eight hours or as needed for acute shortness of breath or wheezing ondansetron 4 mg PO Q8H PRN 30 days prednisone 5 mg PO DAILY 30 days sennosides (Natural Senna Laxative) 8.6 mg PO BEDTIME vitamin A palmitate 10,000 units PO DAILY HPI HPI 6 mth fu (rs): Details: Amna is a 64-year-old female with past medical history of hypertension, interstitial lung disease, cor pulmonale who presents for follow-up. Today she reports that her breathing continues to be somewhat stable. She follows with Dr. South for pulmonology. She wears oxygen as needed at home. She has not needed a needing p.r.n. Lasix. She gets short of breath with physical activities such as stair climbing and walking distances which is not new. When climbing stairs at her home and carrying groceries will still notice discomfort in her chest. She is unclear if this is from her shortness of breath at that time or not. This symptom is more noticable in the last few months. No palpitations, presyncope, syncope, PND, orthopnea or edema. Taking meds as directed. 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 Social History Household Members: None Housing: Condominium Do you presently have visiting nurse or other home services: No Alcohol intake: never Patient Tobacco Use Status: Current everyday Tobacco user Tobacco use type: Cigarette Cigarettes Per Day: 1 Years Smoked: 30 e-Cigarette/Vaping Use: Never Used Second Hand Smoke Exposure: No Advance Directives Date on File: 08/05/21 service: No Current occupational status: disabled Cognitive needs: No Hearing needs: No Vision needs: No Review of Systems Const All systems reviewed & are unremarkable except as noted in HPI and below ENT Denies dizziness Card Denies chest pain, Denies chest pain at rest, Denies chest pain with activity, Denies rapid heart rate, Denies pedal edema, Denies edema, Denies leg edema, Denies lightheadedness, Denies palpitations, Reports dyspnea, Reports dyspnea on exertion and Denies orthopnea Resp Denies cough, Reports dyspnea and Reports dyspnea on exertion GI Denies hematochezia and Denies change in stool character Musc Denies abnormal gait, Denies limited range of motion, Denies muscle cramps, Denies muscle weakness, Denies numbness, Denies radiating pain into limb, Denies stiffness and Denies tingling Neuro Denies abnormal gait, Denies dizziness, Denies numbness and Denies tingling Endo Denies palpitations Physical Exam Vital Signs: Last Vital Signs Pulse 96 04/24/24 15:53 BP 100/62 04/24/24 15:53 BMI result Body Mass Index 25.8 Const General: cooperative, healthy appearing, comfortable and no acute distress Orientation/consciousness: patient oriented x3 Neck Neck: Yes normal visual inspection and Yes no JVD Resp Other: Coarse rales throughout 3/4 of each lung field Effort & Inspection: normal respiratory effort Auscultation: no rhonchi Cardio Jugular venous distension: no JVD Rate: regular rate Rhythm: regular rhythm Heart sounds: S1 normal heart sound present, S2 normal heart sound present, no gallops, no murmurs and no rubs Neuro General: patient oriented x3 Extrem General: Yes normal to inspection and No no pedal edema Psych Appearance: grossly normal Mental Status: mental status grossly normal Speech and movement: Normal speech and movement present Office Procedures EKG Details: Today, read by me, normal sinus rhythm, biatrial enlargement, right axis deviation, pulmonary disease pattern, right ventricular hypertrophy with repolarization abnormality, nonspecific T-wave abnormality, rate 96 [id number], Complete Assessment & Plan Assessment & Plan (1) Chronic cor pulmonale: Code(s): I27.81 - Cor pulmonale (chronic) Category: Medical Plan: History of right heart failure, RV strain in the past. Known history of chronic interstitial lung disease. Maintained on low-dose steroids, p.r.n. O2. Follows closely with pulmonology. No recent hospitalizations for right heart failure. She has Lasix to use as needed which she has needed recently. Last echocardiogram done 03/01/2023 showed EF 61%, RV normal, no pulmonary hypertension. Lungs with coarse rales on examination, consistent with interstitial lung disease. She does not appear to have any respiratory distress at this time. No change to treatment plan made. Cardiology follow-up 6 months, sooner if needed. (2) ILD (interstitial lung disease): Code(s): J84.9 - Interstitial pulmonary disease, unspecified Category: Medical Plan: As above (3) Chest discomfort: Code(s): R07.89 - Other chest pain Category: Medical Plan: Report of chest discomfort that has occurred when climbing stairs and carrying her groceries. She also describes increased respiratory difficulty at that time. Her symptom could be musculoskeletal related in the setting of her shortness of breath. She now feels it has increased in the last few months. Last echocardiogram did show basal inferior and inferior septal hypokinesis. She has no known history of coronary artery disease. Her cardiac risk factors are hypertension and age. A CT scan of the chest done on 08/05/2023 shows no coronary artery calcifications which is reassuring. Will obtain a dobutamine nuclear stress test to evaluate for ischemia. Test reviewed with her in detail. Would avoid the use of Regodenosine with her chronic lung issues. Plan to call her with test results, sooner appointment if needed. Signs and symptoms of angina reviewed with her. (4) Essential hypertension: Code(s): I10 - Essential (primary) hypertension Category: Medical Plan: Well controlled. No med changes made. Continue losartan and hydrochlorothiazide. (5) Dyspnea on exertion: Code(s): R06.00 - Dyspnea, unspecified Category: Medical Plan: As above (6) Abnormal EKG: Code(s): R94.31 - Abnormal electrocardiogram [ECG] [EKG] Category: Medical Plan: EKG today showing sinus rhythm, biatrial enlargement, right axis deviation, pulmonary disease pattern, right ventricular hypertrophy with repolarization abnormality, nonspecific T-wave abnormality. With her EKG abnormalities she will need the nuclear stress test as above to identify if there is underlying ischemia. Plan Time spent on chart review, documentation, interview and assessment Orders: Orders NM cardiolite stress test 04/24/24 R06.00 - Dyspnea, unspecified, R07.89 - Other chest pain, R94.31 - Abnormal electrocardiogram [ECG] [EKG] CA echo transthoracic complete 04/24/24 R06.00 - Dyspnea, unspecified, R07.89 - Other chest pain, R94.31 - Abnormal electrocardiogram [ECG] [EKG] CA dobutamine stress w jermaine 04/24/24 J84.9 - Interstitial pulmonary disease, unspecified, R06.00 - Dyspnea, unspecified, R07.89 - Other chest pain, R94.31 - Abnormal electrocardiogram [ECG] [EKG] Coding Level of Care Code Est Pt Level 4 (85738) Diagnoses Chronic cor pulmonale I27.81 ILD (interstitial lung disease) J84.9 Chest discomfort R07.89 Essential hypertension I10 Dyspnea on exertion R06.00 Abnormal EKG R94.31 CPT Codes EKG - CPT: [id number], Complete ([id number]) Time Spent (min) 28
== END 2024-04-24 16:31 | disposition home or self-care (01) ==
PROVIDERS: PCP Nurse Practitioner Family; Visit Provider Nurse Practitioner Family
DX: I27.81 Cor pulmonale (chronic) (principal); J84.9 Interstitial pulmonary disease, unspecified; R07.89 Other chest pain; I10 Essential (primary) hypertension; R06.00 Dyspnea, unspecified; R94.31 Abnormal electrocardiogram [ECG] [EKG]
CPT/HCPCS: 93010; 99214

== ENCOUNTER → 2024-04-24 15:48 | Outpatient (BNVA) | payer OTHER, SELFPAY | PROVIDERS: PCP Nurse Practitioner Family; Visit Provider Nurse Practitioner Family | DX: R07.89 Other chest pain (principal); R06.00 Dyspnea, unspecified; R94.31 Abnormal electrocardiogram [ECG] [EKG]; I27.81 Cor pulmonale (chronic); I10 Essential (primary) hypertension; J84.9 Interstitial pulmonary disease, unspecified | CPT/HCPCS: 93005; 99212 ==

== ENCOUNTER → 2024-05-14 15:02 | Outpatient (REF) | payer OTHER, SELFPAY ==
--- NOTE | 2024-05-14 15:04 | CA_ITS ---
Transthoracic Echocardiogram Patient (Last, First, Middle): Amna Mcfadden E Gender: Female Date of : 1960 Age: 64 Procedure Date: 05/14/2024 Procedure Type: Transthoracic Echocardiogram Location: OP Height: 149.86 cm Weight: 53.98 kg BSA: 1.48 m2 Heart Rate: bpm BP: 110 / 55 mmHg Intake Clinician: Referring MD: Katie Gomez CLINICAL LABORATORY TECHNICIANJammie Symptoms: R94.31 - Abnormal electrocardiogram [ECG] [EKG] Study Quality: Good ECG Rhythm: Sinus tachycardia Conclusions: - The left ventricular systolic function is hyperdynamic. The visually estimated ejection fraction is >70%. - Moderately increased right ventricular cavity size. There is moderately decreased right ventricular systolic function. - No obvious valvular pathology seen on this study. Findings Left Ventricle Normal left ventricular cavity size. There is normal left ventricular wall thickness. The left ventricular systolic function is hyperdynamic. The visually estimated ejection fraction is >70%. There is no evidence of regional wall motion abnormalities. There is a flattened septum in systole consistent with right ventricular pressure overload. Evidence suggests grade I (mild) diastolic dysfunction. Right Ventricle Moderately increased right ventricular cavity size. There is moderately decreased right ventricular systolic function. Atria Both atria are normal in size. Aortic Valve There is a normal trileaflet aortic valve. There is mild calcification of the aortic valve. There is no aortic valve stenosis. There is no aortic valve regurgitation. Mitral Valve There is mild mitral annular calcification. There is no mitral valve regurgitation. There is no mitral valve stenosis. Pulmonic Valve The pulmonic valve is likely normal. Tricuspid Valve There is trace tricuspid valve regurgitation. There is no evidence of pulmonary hypertension. Great Vessels The asc aorta is normal in size. Venous The inferior vena cava is normal in size and collapses greater than 50% with inspiration. Pericardium/Pleural There is a trivial pericardial effusion. Prior Study Comparison Changes noted compared to prior study dated: 03/01/2023. see comments on right ventricle. Recommendations, Care & Conclusions No obvious valvular pathology seen on this study. Measurements 2D Linear Measurements IVSd: 1.05 0.6-0.9/0.6-1.0 cm LVIDd: 2.80 3.9-5.3/4.2-5.9 cm LVIDd Index: 1.89 2.4-3.2/2.2-3.1 cm/m2 LVIDs: 1.94 2.0-3.6 cm LVPWd: 1.11 0.7-1.1 cm Ao Root: 3.10 2.1-3.5 cm LA Diam: 2.60 2.7-3.8/3.0-4.0 cm LAIDs Index: 1.76 1.5-2.3 cm/m2 LV Mass: 104.07 67-162/88-224 g LV Mass Index: 70.32 43-95/49-115 g/m2 LVOT Diam: 2.00 3.0+(-)1.3 cm 2D Systolic Function EF 4C: 74.90 >55% EF 2C: 74.10 >55% EF BiP: 74.00 >55% Mitral Valve MV VTI: 0.16 MV Pk Silviano: 1.10 MV Mn Silviano: 0.61 MV Pk Grad: 5.00 MV Mn Grad: 2.00 MV Pk E: 0.64 MV PK A: 1.08 MV Decel Time: 89.00 E/A: 0.60 E'Lateral: 8.49 E'Medial: 3.48 E/E' Med: 18.30 E/E' Lat: 7.50 PHT: 26.00 MVA PHT: 8.46 MVA Continuity: 3.63 Decel [place]: 7.16 Aortic Valve AoV Pk Silviano: 1.45 AoV Mn Silviano: 0.89 AoV VTI: 0.26 AoV Pk Grad: 8.00 Aov Mn Grad: 4.00 MIAN Cont.VTI: 2.28 LVOT LVOT Pk Silviano: 1.01 LVOT Mn Silviano: 0.62 LVOT VTI: 0.19 LVOT Pk Grad: 4.00 LVOT Mn Grad: 2.00 LVOT Diam: 2.00 LVOT Area: 3.14 Diastolic Function MV Pk E: 0.64 MV Pk A: 1.08 E/A: 0.60 E'Medial: 3.48 E/E' Med: 18.30 E' Laterial: 8.49 E/E' Lat: 7.50 Tricuspid Valve TR Pk Silviano: 2.22 TR Pk Grad: 20.00 RA Press: 3.00 RVSP: 23.00 Great Vessels Aorta Ao Root-2D: 3.10 2.0-3.7 cm Ao Asc: 3.20 2.1-3.4 cm Pulmonary Valve PV Pk Silviano: 0.89 Peak PV Grad: 3.00 Updated in Other Vendor System with Status of Final Bryan Barber MD electronically signed on 05/15/2024 10:56:19 AM with status of Final
== END ==
LOC: HO.CARD 15:02
PROVIDERS: PCP Nurse Practitioner Family; Visit Provider Nurse Practitioner Family
DX: R07.89 Other chest pain (principal); R60.0 Localized edema; R94.31 Abnormal electrocardiogram [ECG] [EKG]
CPT/HCPCS: 93306

== ENCOUNTER → 2024-05-14 15:04 | Outpatient (BNV) | payer OTHER, SELFPAY | PROVIDERS: PCP Nurse Practitioner Family; Visit Provider Internal Medicine | DX: I35.8 Other nonrheumatic aortic valve disorders (principal); I34.81 Nonrheumatic mitral (valve) annulus calcification; R93.1 Abnormal findings on diagnostic imaging of heart and coronary circulation | CPT/HCPCS: 93306 ==

== ENCOUNTER 2024-05-17 12:58 | Outpatient (AMB) | payer OTHER, SELFPAY ==
--- NOTE | 2024-05-17 13:00 | A.OFFVIS_ITS ---
Vital Signs 05/17/24 13:10 Height 4 ft 11 in Weight 125 lb 4 oz BMI 25.3 BP 109/77 Blood Pressure Location Rt brachial Position Sitting Pulse 103 H Pulse Source Pulse Oximeter Pulse Oximetry (%) 98 Oxygen Delivery Method Room Air Intake Visit Reasons: PILL COUNT Intake Note: Amna comes in today for a pill count to morphine, patient should have 76 tablets and presents with 77 tablets which she last took today 05/17/24 at 12:30pm. 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 Patient is supposed to have #76 pills in her possession and presents with #77 pills. This demonstrates a responsible attitude towards her regimen. Patient reports adequate analgesia on morphine 15 mg QID prn without any side effects except occasional constipation for which she takes Movantic. Current medication regime allows her to be less symptomatic and more functional. Denies any fever, dizziness, shortness of breaths, chest pain or tightness, headaches, nausea, sedation, or urinary retention. Patient is scheduled to undergo nuclear med. stress test next month per Cardiology for recent EKG changes. Patient uses supplemental O2 at night and regularly follow ups with [facility] Pulmonology. 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 Social History Household Members: None Housing: Condominium Do you presently have visiting nurse or other home services: No Alcohol intake: never Patient Tobacco Use Status: Current everyday Tobacco user Tobacco use type: Cigarette Cigarettes Per Day: 1 Years Smoked: 30 e-Cigarette/Vaping Use: Never Used Second Hand Smoke Exposure: No Advance Directives Date on File: 08/05/21 service: No Current occupational status: disabled Cognitive needs: No Hearing needs: No Vision needs: No Review of Systems Const All systems reviewed & are unremarkable except as noted in HPI and below Physical Exam General: Appears afebrile. Alert and oriented. Mood and affect appropriate. Follows and participates in conversation appropriately. Respiratory effort is unlabored. No cough. Able to transition from sit to stand unassisted. Uses cane with ambulation. Eyes General: appearance normal, both eyes and all related structures Resp Effort & Inspection: normal respiratory effort, able to speak in complete sentences, no cough, not labored, no respiratory distress and no stridor GI Inspection: Yes normal to inspection and No obesity Palpation (GI): Soft to palpation, nontender and no guarding Extrem General: Yes capillary refill normal, Yes no clubbing, cyanosis or edema and Yes no calf tenderness Psych Appearance: grossly normal and well kempt Mental Status: mental status grossly normal Speech and movement: Normal speech and movement present and Clear speech present Affect: normal affect Attitude: cooperative Thought process: Normal thought process present Thought content: Normal thought content present, suicidality (none), no halluc inations and No Depressive thoughts present Insight: Good insight present (Psych) Judgement: Good judgement present (Psych) Results Reviewed Results Reviewed: XR THORACOLUMBAR SPINE 01/03/23 FINDINGS: There is bony demineralization. Vertebral body heights are normal. There is a mild lower thoracic dextroscoliosis. There is mild degenerative disc disease at T8-T9, and moderate degenerative disc disease seen at T11-T12 and T12-L1. The remaining thoracic disc spaces are relatively well-maintained. No acute fracture or spondylolisthesis is seen. There is mild thoracic spondylosis. The posterior elements are intact. The paravertebral soft tissues are unremarkable. IMPRESSION: 1. There is a mild lower thoracic dextroscoliosis. 2. There is mild degenerative disc disease at T8-T9, and moderate degenerative disease is seen at T11-T12 and T12-L1. XR LUMBOSACRAL SPINE 01/03/23 COMPARISON: Radiographs dated 08/09/2019 TECHNIQUE: AP, bilateral oblique and lateral (neutral, flexion and extension) views of the lumbar spine and lateral view of the lumbosacral junction. FINDINGS: There is bony demineralization. There is a mild lumbar levoscoliosis. Vertebral body heights are normal. At L1-L2, there is a 4 mm retrolisthesis. The remaining disc spaces are relatively well-maintained. No acute fracture or spondylolisthesis is seen. There is no instability with flexion or extension. The posterior elements are intact. No spondylolysis defect is seen. There is multi-level lumbar facet arthropathy. The paravertebral soft tissues are unremarkable. There are aortoiliac atherosclerotic calcifications. IMPRESSION: 1. There is moderate degenerative disc disease at L1-L2. 2. No acute fracture or spondylolisthesis is seen. 3. There is multi-level lumbar facet arthropathy. 4. There is a mild lumbar levoscoliosis. Assessment & Plan Assessment & Plan (1) Complex regional pain syndrome of right lower extremity: Code(s): G90.521 - Complex regional pain syndrome I of right lower limb Category: Medical (2) Chronic pain syndrome: Code(s): G89.4 - Chronic pain syndrome Category: Medical (3) Lumbar degenerative disc disease: Code(s): M51.36 - Other intervertebral disc degeneration, lumbar region Category: Medical (4) long-term (current) use of opiate analgesic: Code(s): Z79.891 - long-term (current) use of opiate analgesic Category: Medical (5) Dorsalgia of thoracolumbar region: Code(s): M54.6 - Pain in thoracic spine; M54.50 - Low back pain, unspecified Category: Medical (6) Lumbar spondylosis: Code(s): M47.816 - Spondylosis without myelopathy or radiculopathy, lumbar region Category: Medical Plan Patient has shown accountability for her medication regimen. There is no evidence of misuse, abuse or diversion at this time. SensorinPAT reviewed. Script for Morphine IR 15 mg QID with an advanced date of 06/05/24. Patient reports adequate analgesia without side effects. Reviewed with the patient the risks associated with benzodiazepine and opioid use. Patient is aware and verbalized agreement to take the medications at least two hours apart. Patient has Narcan at home. All questions were answered and patient is in agreement of plan. Follow up in 4- 5 weeks for a pill count or sooner as needed. Medications: Refilled morphine Partial Fill upon patient request. 15 mg PO Q6H 30 days PRN 120 tabs 0RF pain, severe G89.4 - Chronic pain syndrome, G90.521 - Complex regional pain syndrome I of right lower limb, M47.816 - Spondylosis without myelopathy or radiculopathy, lumbar region, M51.36 - Other intervertebral disc degeneration, lumbar region Coding Level of Care Code Est Pt Level 4 (90513) Diagnoses Complex regional pain syndrome of right lower extremity G90.521 Chronic pain syndrome G89.4 Lumbar degenerative disc disease M51.36 long-term (current) use of opiate analgesic Z79.891 Dorsalgia of thoracolumbar region M54.6; M54.50 Lumbar spondylosis M47.816
[2024-05-17 13:10] VITALS: BP 109/77; PULSE 103; O2SAT 98; BMI 25.3
== END 2024-05-17 13:22 | disposition home or self-care (01) ==
PROVIDERS: PCP Nurse Practitioner Family; Visit Provider Nurse Practitioner Family
DX: G90.521 Complex regional pain syndrome I of right lower limb (principal); G89.4 Chronic pain syndrome; M51.36 Other intervertebral disc degeneration, lumbar region; Z79.891 Long term (current) use of opiate analgesic; M54.6 Pain in thoracic spine; M54.50 Low back pain, unspecified; M47.816 Spondylosis without myelopathy or radiculopathy, lumbar region
CPT/HCPCS: 99214

== ENCOUNTER → 2024-05-17 12:58 | Outpatient (BNVA) | payer OTHER, SELFPAY | PROVIDERS: PCP Nurse Practitioner Family; Visit Provider Nurse Practitioner Family | DX: G90.521 Complex regional pain syndrome I of right lower limb (principal); M51.36 Other intervertebral disc degeneration, lumbar region; M47.816 Spondylosis without myelopathy or radiculopathy, lumbar region; M54.50 Low back pain, unspecified; G89.4 Chronic pain syndrome; Z99.81 Dependence on supplemental oxygen; Z79.891 Long term (current) use of opiate analgesic | CPT/HCPCS: 99212 ==

== ENCOUNTER 2024-06-05 18:03 | Emergency (ER) | payer OTHER, SELFPAY ==
--- NOTE | ~2024-06-05 | XR_ITS ---
EXAMINATION: XR CHEST CLINICAL INFORMATION: Chest pain. COMPARISON: CT chest 08/05/2023 TECHNIQUE: 2 views of the chest were obtained. FINDINGS: The lungs are expanded with diffuse reticular interstitial prominence throughout both lungs from lung apices to the bases suggestive chronic interstitial lung disease. There is no pleural effusion or dense consolidation. The heart size and pulmonary vascularity is normal. No gross bony abnormality seen except for exaggerated thoracic kyphosis. XR/XR chest 2V IMPRESSION: 1. Chronic interstitial lung disease. No acute pneumonic process seen. 2. Exaggerated thoracic kyphosis. 3. No major change from previous CT chest exam 08/05/2023
--- NOTE | 2024-06-05 18:05 | ECG_ITS ---
Test Reason : CHEST PAIN Blood Pressure : / mmHG Vent. Rate : 123 BPM Atrial Rate : 123 BPM P-R Int : 182 ms QRS Dur : 088 ms QT Int : 298 ms P-R-T Axes : 056 124 -03 degrees QTc Int : 426 ms Sinus tachycardia Biatrial enlargement Right axis deviation Right ventricular hypertrophy with repolarization abnormality T wave abnormalities due to RV strain vs ischemia Abnormal ECG When compared with ECG of 04-AUG-2021 14:10, No significant change was found Referred By: Poncho Saravia Electronically Signed By:Yobani Silverman
[2024-06-05 19:03] VITALS: BP 86/54; PULSE 122; RESP 24; TEMP 36.7; O2SAT 78; BMI 24.3
--- NOTE | 2024-06-05 19:04 | ED_ITS ---
HPI - General Adult General Chief complaint: Chest Pain Stated complaint: chest pain/shortness of breath Time Seen by Provider: 06/05/24 20:49 History of Present Illness ED Provider: Dr. Twan Piña HPI narrative: 64-year-old female with a history of idiopathic interstitial lung disease O2 dependent 2 L of oxygen chronically, right atrial enlargement, complex regional pain syndrome, IBS who presents emergency department for evaluation of 4-5 days of feeling weak and fatigued. She also states that she has been feeling lightheaded. The patient has a history of exertional chest pain but she states that over the past 4-5 days she has had more frequent episodes. She states that with minimal exertion she gets a pressure-like pain across her chest which can be as severe as 10/10. She states the pain will last 30-45 minutes and resolves with rest. She states that she has been having intermittent chest pain since 10:00 this morning. She has no pain radiating to her neck, jaw or arms. She states she is associated nausea but this is chronic. Patient was concerned about the frequency of her chest pain in the severity of her chest pain therefore she came to the emergency department for evaluation. The patient states she does have peripheral edema but she states that the peripheral edema is improved. She did miss several doses of her hydrochlorothiazide last week but states she has been taking over the past several days. Patient has never had a history of hyponatremia that she is aware of. Related Data Home Medications ?Medication ?Instructions ?Recorded ?Confirmed alprazolam 2 mg tablet 0.5 mg PO BEDTIME PRN 03/08/23 04/24/24 L.ham, dave, laureano, rham 15 cap PO 04/09/24 04/24/24 billion cell-bacterioph 15 mg capsule ([facility] Women's 4-in-1) Previous Rx's ?Medication ?Instructions ?Recorded albuterol sulfate 0.63 mg/3 mL 0.63 mg (3 mL) inhalation QID PRN 02/18/21 solution for nebulization shortness of breath or wheezing #75 mL nebulizer and compressor #1 ea 03/06/21 blood pressure monitor #1 ea 02/26/22 crutches (pair of crutches) #1 ea 03/31/22 albuterol sulfate 90 mcg/actuation 1 puff PO QID PRN for wheezing 09/27/22 aerosol inhaler #8.5 grams docusate sodium 100 mg capsule 100 mg PO BEDTIME #90 caps 11/17/22 dicyclomine 10 mg capsule 10 mg PO TID #90 caps 03/04/23 methylcellulose (laxative) 500 mg 500 mg PO DAILY #90 tabs 03/04/23 tablet (Citrucel) HurryCane #1 ea 06/14/23 lactobacillus combination no.9 4 4,000 mmu cells PO DAILY #7 caps 09/02/23 billion cell capsule (Adult 50 Plus Probiotic) cholecalciferol (vitamin D3) 50 50 mcg PO DAILY #90 caps 10/10/23 mcg (2,000 unit) capsule COVID-19 antigen test #1 ea 10/13/23 losartan 50 mg tablet 50 mg PO DAILY #90 tabs 11/07/23 calcium carbonate 600 mg-vitamin 1 tab PO DAILY #90 tabs 11/08/23 D3 5 mcg (200 unit) tablet food supplemt, lactose-reduced 1 ea PO BID #60 ea 12/09/23 (Ensure oral liquid) L. crispatus, gasseri, jensenii, 1 cap PO DAILY 90 days #90 caps 12/14/23 rhamnosus 15 billion cell capsule prednisone 5 mg tablet 5 mg PO DAILY 30 days #30 tabs 12/23/23 sennosides 8.6 mg tablet (Natural 8.6 mg PO BEDTIME constipation #90 03/15/24 Senna Laxative) tabs gabapentin 400 mg capsule 800 mg (2 x 400 mg) PO QID 90 days 04/05/24 #720 caps folic acid 1 mg tablet 1 mg PO DAILY #30 tabs 04/09/24 vitamin A palmitate 3,000 mcg 10,000 unit PO DAILY #90 tabs 04/09/24 (10,000 unit) tablet naloxegol 12.5 mg tablet (Movantik) 12.5 mg PO QAM #30 tabs 04/10/24 ondansetron 4 mg disintegrating 4 mg PO Q8H PRN nausea and 04/30/24 tablet vomiting 30 days #90 tabs hydrochlorothiazide 12.5 mg tablet 12.5 mg PO DAILY #90 tabs 05/03/24 morphine 15 mg immediate release 15 mg PO Q6H PRN pain, severe 30 05/17/24 tablet days #120 tabs Allergies Allergy/AdvReac Type Severity Reaction Status Date / Time No Known Allergies Allergy Verified 06/05/24 19:08 Review of Systems 2 Review of Systems: Yes all other systems are reviewed and are negative [facility] Past Medical History [facility] Narrative: Social history: Patient denies tobacco, alcohol and drug use Medical History Osteomyelitis Lymphadenopathy, mediastinal Respiratory failure Chest pain Congestive heart failure (CHF) 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 Social History Social History Household Members: None Housing: Condominium Do you presently have visiting nurse or other home services: No Alcohol intake: never Patient Tobacco Use Status: Current everyday Tobacco user Tobacco use type: Cigarette Cigarettes Per Day: 1 Years Smoked: 30 e-Cigarette/Vaping Use: Never Used Second Hand Smoke Exposure: No Advance Directives: No Advance Directives Information Provided: No Advance Directives Date on File: 08/05/21 service: No Current occupational status: disabled Cognitive needs: No Hearing needs: No Vision needs: No Physical Exam ED Vital Signs: Vital Signs - 24 hr 06/05/24 19:03 06/05/24 19:09 06/05/24 21:56 Temperature 98.1 F Pulse Rate 122 H 97 Respiratory Rate 24 H 20 Blood Pressure 86/54 L 101/67 Pulse Oximetry 78 L 92 97 Oxygen Delivery Method Room Air Nasal Cannula Room Air Oxygen Flow Rate 2 BMI result Body Mass Index 24.3 Vital signs revealed tachycardia with a heart rate of 24 tachypnea with a respiratory rate of 20 O2 saturation on room air was 78% on 2 L via nasal cannula 92%-she wears 2 L of oxygen chronically for her interstitial lung disease Exam: General: Awake, alert in no distress Head: Normocephalic, atraumatic EENT: PERRL, Lids normal, sclera normal, conjunctiva normal, nose normal , ears normal, throat without erythema or exudates Neck: Supple, no adenopathy Lung: Diffuse rales with no rhonchi or wheezing, breath sounds are symmetric bilaterally Chest: symmetric movement, nontender Heart: Tachycardia with a regular rhythm, normal S1-S2 no murmurs rubs or gallops Abdomen: soft, non-tender, nondistended, normal bowel sounds Back: no vertebral tenderness, no CVAT Extremities: Amputation of the toes of her right foot, moves all extremities symmetrically, trace pitting edema Neuro: Awake, alert, oriented, normal speech, cranial nerves intact, moves all extremities symmetrically Psych: Pleasant, cooperative Course Course Course Narrative: RME, this is a rapid medical exam performed by Faisal Saravia please refer to primary provider for complete H&P- 64-year-old female past medical history significant for pulmonary fibrosis on nocturnal O2, hypertension, CHF, IBS presents for evaluation of shortness of breath and chest pain for the last 2 days. She is hypoxic, hypotensive and tachycardic in triage. She complains of nausea and dizziness as well. Plan for labs including chest x-ray, viral swabs, blood cultures and lactic. Medications Administered Generic Name Dose Route Start Last Admin Trade Name Freq PRN Reason Stop Dose Admin Sodium Chloride 1,000 mls @ 75 mls/hr 06/05/24 21:30 06/05/24 22:36 Ns IVCONT 75 mls/hr .[id number] [facility] Administration Medical Decision Making Medical Decision Making [facility] Narrative: 64-year-old female with a history of idiopathic interstitial lung disease O2 dependent 2 L of oxygen chronically, right atrial enlargement, complex regional pain syndrome, IBS who presents emergency department for evaluation of 4-5 days of feeling weak and fatigued, exertional chest pain times 4-5 days with similar episodes in the past however episodes have become more frequent and more severe, last 30-45 minutes and resolve with rest with no associated symptoms except for lightheadedness. Patient does take hydrochlorothiazide for peripheral edema but missed several doses last week but has been compliant over the last 3-4 days. Vital signs revealed tachycardia and tachypnea. Physical examination revealed bilateral symmetric rales consistent with her idiopathic interstitial lung disease. Differential diagnosis: ?Includes but is not limited to myocardial infarction, myocardial ischemia, unstable angina, pneumonia, pulmonary edema, pulmonary embolism, electrolyte abnormalities, anemia Following evaluation was ordered: CBC, CMP, PT/INR, PTT, D-dimer, BNP, troponin, urinalysis, urine osmolality, urine sodium, serum osmolality lactic acid, blood cultures x2, Patient was initially treated with the following:Cardiac monitoring, pulse ox monitoring, IV insert, Oxygen 2 L via nasal cannula, normal saline at 75 cc/hours Course: 21:31 My interpretation patient's laboratory evaluation is as follows: WBC was normal 9100. Normocytic anemia with an H&H of 12 and 35, low sodium 126, elevated glucose 119. LFTs were normal. Lipase normal. High sensitive troponin I elevated 37.7. Lactic acid elevated 2.2. COVID-19, influenza, RSV negative 00:10 Serum osmolality was low at 258, urine osmolality was low at 129. Urine sodium was normal at 20. Patient states she has been drinking at least four 20 oz glasses of water with ice per day secondary to the high heat and humidity. She has been doing this for at least a week. Lab Data 06/05/24 19:43 06/05/24 19:46 Labs: Lab Results 06/05/24 06/05/24 06/05/24 Range/Units 19:43 19:46 21:44 WBC 9.1 (4.8-10.8) X10*3/uL RBC 4.16 L (4.20-5.50) X10*6/uL Hgb 12.3 (12.0-16.0) g/dl Hct 35.4 L (37.0-47.0) % MCV 85.1 (80.0-98.0) fL MCH 29.6 (27.0-33.0) pg MCHC 34.7 (31.0-35.0) g/dl RDW 14.4 (11.0-16.0) % Plt Count 317 (160-400) X10*3/uL MPV 10.5 (9.4-12.3) fL Immature Gran % (Auto) 0.3 (0.0-0.4) % Neut % (Auto) 82.7 H (45-73) % Lymph % (Auto) 11.3 L (20-40) % [place] % (Auto) 4.8 (2-11) % Eos % (Auto) 0.2 (0-4) % Baso % (Auto) 0.7 (0-2) % Lymph # (Auto) 1.0 L (1.2-4.9) X10*3/uL [place] # (Auto) 0.4 (0.1-1.2) X10*3/uL Eos # (Auto) 0.0 (0.0-0.4) X10*3/uL Baso # (Auto) 0.1 (0.0-0.2) X10*3/uL Abs Immat Gran (auto) 0.03 (0.00-0.03) X10*3/uL Absolute Neuts (auto) 7.5 (2.0-8.3) x10*3/uL Absolute Nucleated RBC 0.000 (0.0-0.012) X10*3/uL Nucleated RBC % (auto) 0.0 (0.0-0.2) /100WBC PT 14.9 H (11.1-13.3) SEC INR 1.2 H (0.9-1.1) APTT 29.8 (26.0-36.8) SEC D-Dimer High Sensitivty < 150 NG/ML Sodium 126 L (135-145) mmol/L Potassium 3.5 (3.3-5.1) mmol/L Chloride 81 L D (96-108) mmol/L Carbon Dioxide 29 (22-29) mmol/L Anion Gap 20 (12-20) BUN 5 L (9-16) mg/dL Creatinine 0.85 (0.5-1.4) mg/dL Estim Creat Clear Calc 51.8 Estimated GFR > 60 Random Glucose 119 H (60-115) mg/dL Osmolality (281-305) mosm/kg Lactic Acid 2.2 H* (0.5-2.0) mmol/L Lactic Acid F/U @ 2Hr (0.5-2.0) mmol/L Calcium 9.1 (8.4-10.2) mg/dL Total Bilirubin 0.7 (0.0-1.0) mg/dL AST 30 (5-31) U/L ALT 10 (0-31) U/L Alkaline Phosphatase 90 (39-117) U/L Troponin I High Sens 31.7 H (<3.5-17.0) ng/L B-Natriuretic Peptide 1733 H (<100) pg/mL Total Protein 7.2 (6.5-8.0) g/dL Albumin 3.3 L (3.5-5.0) g/dL Lipase 5 L (8-78) U/L Urine Color Yellow Urine Appearance Clear Urine pH 7.0 (5.0-9.0) Ur Specific [place] <= 1.005 (1.005-1.025) Urine Protein Negative (Neg-Trace) mg/dL Urine Glucose (UA) Negative (Negative) mg/dL Urine Ketones Negative (Negative) mg/dL Urine Blood Negative (Negative) Urine Nitrite Negative (Negative) Ur Leukocyte Esterase Negative (Negative) Urine Osmolality 129 L (373-1093) mosm/kg Ur Random Sodium 20.0 mmol/L Influenza Type A (PCR) NEGATIVE (Negative) Influenza Type B (PCR) NEGATIVE (Negative) RSV RNA Qual (PCR) NEGATIVE (Negative) SARS-CoV-2 RNA (RT-PCR) NEGATIVE (Negative) 06/05/24 Range/Units 22:22 WBC (4.8-10.8) X10*3/uL RBC (4.20-5.50) X10*6/uL Hgb (12.0-16.0) g/dl Hct (37.0-47.0) % MCV (80.0-98.0) fL MCH (27.0-33.0) pg MCHC (31.0-35.0) g/dl RDW (11.0-16.0) % Plt Count (160-400) X10*3/uL MPV (9.4-12.3) fL Immature Gran % (Auto) (0.0-0.4) % Neut % (Auto) (45-73) % Lymph % (Auto) (20-40) % [place] % (Auto) (2-11) % Eos % (Auto) (0-4) % Baso % (Auto) (0-2) % Lymph # (Auto) (1.2-4.9) X10*3/uL [place] # (Auto) (0.1-1.2) X10*3/uL Eos # (Auto) (0.0-0.4) X10*3/uL Baso # (Auto) (0.0-0.2) X10*3/uL Abs Immat Gran (auto) (0.00-0.03) X10*3/uL Absolute Neuts (auto) (2.0-8.3) x10*3/uL Absolute Nucleated RBC (0.0-0.012) X10*3/uL Nucleated RBC % (auto) (0.0-0.2) /100WBC PT (11.1-13.3) SEC INR (0.9-1.1) APTT (26.0-36.8) SEC D-Dimer High Sensitivty NG/ML Sodium (135-145) mmol/L Potassium (3.3-5.1) mmol/L Chloride (96-108) mmol/L Carbon Dioxide (22-29) mmol/L Anion Gap (12-20) BUN (9-16) mg/dL Creatinine (0.5-1.4) mg/dL Estim Creat Clear Calc Estimated GFR Random Glucose (60-115) mg/dL Osmolality 258 L (281-305) mosm/kg Lactic Acid (0.5-2.0) mmol/L Lactic Acid F/U @ 2Hr 0.9 (0.5-2.0) mmol/L Calcium (8.4-10.2) mg/dL Total Bilirubin (0.0-1.0) mg/dL AST (5-31) U/L ALT (0-31) U/L Alkaline Phosphatase (39-117) U/L Troponin I High Sens 29.2 H (<3.5-17.0) ng/L B-Natriuretic Peptide (<100) pg/mL Total Protein (6.5-8.0) g/dL Albumin (3.5-5.0) g/dL Lipase (8-78) U/L Urine Color Urine Appearance Urine pH (5.0-9.0) Ur Specific [place] (1.005-1.025) Urine Protein (Neg-Trace) mg/dL Urine Glucose (UA) (Negative) mg/dL Urine Ketones (Negative) mg/dL Urine Blood (Negative) Urine Nitrite (Negative) Ur Leukocyte Esterase (Negative) Urine Osmolality (373-1093) mosm/kg Ur Random Sodium mmol/L Influenza Type A (PCR) (Negative) Influenza Type B (PCR) (Negative) RSV RNA Qual (PCR) (Negative) SARS-CoV-2 RNA (RT-PCR) (Negative) Independent Interpretation I performed an independent interpretation of an: EKG Interpretation: My independent interpretation patient's 12 EKG done at 18:44 hours as follows: Sinus tachycardia with a rate of 123, normal MT interval, QRS duration QTC interval, no ST segment elevation, less than [address] segment depression V3 through V6, no PACs, no PVCs, inverted T-wave in leads 3 and V1. Compared to EKG dated 08/04/2021 the patient had a sinus tachycardia at that time of 101, inverted T-waves her old, patient however also had ischemic looking T-waves V3 and V4 ST segment depression V3 through V6 is new. Radiology Impression Discussion of test interpretation with radiology: I have reviewed the radiologist's reading. Radiologist Impression: XR chest 2V IMPRESSION: 1. Chronic interstitial lung disease. No acute pneumonic process seen. 2. Exaggerated thoracic kyphosis. 3. No major change from previous CT chest exam 08/05/2023 Dictated By: Hood Huang MD Chronic Conditions Patient?s care impacted by: Hypertension Discharge Plan Discharge Clinical Impression: Polydipsia, Chest pain, Acute hyponatremia Patient Disposition: Home, Self-Care Instructions: Hyponatremia (ED) Additional Instructions: Your EKG did not reveal a clear cause for your pain Your troponin (marker of heart damage) was elevated at 37.7 (normal is less than 17 in women) however your repeat 3 hour troponin was 29. The fact that the 2nd troponins did not increase over time suggests that you did not have a heart attack or heart injury is the cause of your chest pain. Your chest x-ray is consistent with your interstitial fibrosis and it does not look like you have pneumonia on your chest x-ray compared to her previous chest x-rays. Your COVID-19, influenza and RSV tests were negative. Your blood sodium (salt) was low at 126 (normal is 135-145). Based on your urine and serum osmolalities (concentrations), it looks like you are drinking too much water and this water is diluting out the sodium (salt) in your blood. This is sometimes called water intoxication. This low sodium may be the cause of your weakness and fatigued. I want you to only drink 16 oz of fluid per day 3 days and this should improve your sodium. I also want you to put salt in your food for the next 3 days. After that you should not drink anymore than 24 oz of fluid per day. Follow-up with your doctor in 4 days to get a repeat sodium to make sure that your sodium concentration goes back to normal Please return to the emergency department if your symptoms get worse or if you develop any symptoms that are concerning to you. Prescriptions: No Action (DME) nebulizer and compressor Device See Rx Instructions .ROUTE .MEDSUPPLY Qty: 1 0RF Rx Instructions: Use every eight hours or as needed for acute shortness of breath or wheezing (DME) blood pressure monitor Kit See Rx Instructions .Route Qty: 1 0RF Rx Instructions: As directed (DME) pair of crutches Kit See Rx Instructions .Route Qty: 1 0RF Rx Instructions: As directed CPT E0114 albuterol sulfate 90 mcg/actuation HFA aerosol inhaler 1 puff PO QID PRN (Reason: for wheezing) Qty: 8.5 6RF (DME) HurryCane See Rx Instructions .Route .MEDSUPPLY Qty: 1 0RF Rx Instructions: As directed cholecalciferol (vitamin D3) 50 mcg (2,000 unit) capsule 50 mcg PO DAILY Qty: 90 3RF (DME) COVID-19 antigen test Kit See Rx Instructions .Route Qty: 1 1RF Rx Instructions: As directed losartan 50 mg tablet 50 mg PO DAILY Qty: 90 3RF calcium carbonate-vitamin D3 600 mg-5 mcg (200 unit) tablet 1 tab PO DAILY Qty: 90 2RF Ensure Liquid 1 ea PO BID Qty: 60 3RF [facility] fsboWOW Health Balanc 15 billion cell capsule 1 cap PO DAILY 90 Days Qty: 90 3RF prednisone 5 mg tablet 5 mg PO DAILY 30 Days Qty: 30 6RF sennosides [Natural Senna Laxative] 8.6 mg tablet 8.6 mg PO BEDTIME Qty: 90 3RF gabapentin 400 mg capsule 800 mg PO QID 90 Days Qty: 720 0RF Movantik 12.5 mg tablet 12.5 mg PO QAM Qty: 30 3RF Rx Instructions: must be taken on empty stomach; no food 1 hr after or 2-3 hrs before dose ondansetron 4 mg tablet,disintegrating 4 mg PO Q8H PRN (Reason: nausea and vomiting) 30 Days Qty: 90 0RF hydrochlorothiazide 12.5 mg tablet 12.5 mg PO DAILY Qty: 90 1RF albuterol sulfate 0.63 mg/3 mL solution for nebulization 0.63 mg inhalation QID PRN (Reason: shortness of breath or wheezing) Qty: 75 0RF Adult 50 Plus Probiotic 4 billion cell capsule 4,000 mmu cells PO DAILY Qty: 7 0RF Rx Instructions: administer with a meal alprazolam 2 mg tablet 0.5 mg PO BEDTIME PRN Rx Instructions: / tablet docusate sodium 100 mg capsule 100 mg PO BEDTIME Qty: 90 3RF Citrucel 500 mg tablet 500 mg PO DAILY Qty: 90 2RF Rx Instructions: take it with full glass of water dicyclomine 10 mg capsule 10 mg PO TID Qty: 90 2RF morphine 15 mg tablet 15 mg PO Q6H PRN (Reason: pain, severe) 30 Days Qty: 120 0RF Rx Instructions: Partial Fill upon patient request. [employer] Women's 4-in-1 15 billion cell -15 mg capsule PO folic acid 1 mg tablet 1 mg PO DAILY Qty: 30 3RF vitamin A palmitate 3,000 mcg (10,000 unit) tablet 10,000 unit PO DAILY Qty: 90 1RF Print Language: Lao
[2024-06-05 19:09] VITALS: O2SAT 92
--- NOTE | 2024-06-05 19:49 | PC.NURSE ---
IV #20 to TANIA, labs drawn and sent.
[2024-06-05 19:51] LABS: MANUAL DIFF FLAG NO
[2024-06-05 20:00] LABS: Basophils Absolute Auto 0.1 X10*3/uL (0.0-0.2); Basophils Percent Auto 0.7 % (0-2); Eosinophils Percent Auto 0.2 % (0-4); Hematocrit 35.4 % (37.0-47.0); Hemoglobin 12.3 g/dl (12.0-16.0); Imm Gran Abs Auto 0.03 X10*3/uL (0.00-0.03); Imm Gran Pct Auto 0.3 % (0.0-0.4); Lymphocytes Percent Auto 11.3 % (20-40); Mean Corpuscular HGB Conc 34.7 g/dl (31.0-35.0); Mean Corpuscular Hemoglobin 29.6 pg (27.0-33.0); Mean Corpuscular Volume 85.1 fL (80.0-98.0); Mean Platelet Volume 10.5 fL (9.4-12.3); Monocytes Absolute Auto 0.4 X10*3/uL (0.1-1.2); Monocytes Percent Auto 4.8 % (2-11); Neutrophils Absolute Auto 7.5 x10*3/uL (2.0-8.3); Neutrophils Percent Auto 82.7 % (45-73); Platelet Count 317 X10*3/uL (160-400); Red Blood Count 4.16 X10*6/uL (4.20-5.50); Red Cell Distribution Width 14.4 % (11.0-16.0); White Blood Count 9.1 X10*3/uL (4.8-10.8)
[2024-06-05 20:07] LABS: Lactic Acid 2.2 mmol/L (0.5-2.0)
[2024-06-05 20:10] LABS: Alanine Aminotransferase 10 U/L (0-31); Albumin Level 3.3 g/dL (3.5-5.0); Alkaline Phosphatase 90 U/L (39-117); Anion Gap 20 (12-20); Aspartate Amino Transferase 30 U/L (5-31); Bilirubin Total 0.7 mg/dL (0.0-1.0); Blood Urea Nitrogen 5 mg/dL (9-16); Calcium 9.1 mg/dL (8.4-10.2); Carbon Dioxide 29 mmol/L (22-29); Chloride 81 mmol/L (96-108); Creatinine Clr Calc Pharmacy 51.8; Estimated Glomerular Filt Rate > 60; Glucose Random 119 mg/dL (60-115); Lipase 5 U/L (8-78); Potassium 3.5 mmol/L (3.3-5.1); Sodium 126 mmol/L (135-145); Total Protein 7.2 g/dL (6.5-8.0)
[2024-06-05 20:10] LABS: INTERNATIONAL NORM RATIO 1.2 (0.9-1.1); Prothrombin Time 14.9 SEC (11.1-13.3)
[2024-06-05 20:13] LABS: B Type Natriuretic Peptide 1733 pg/mL (<100)
[2024-06-05 20:15] LABS: Troponin-I High Sensitivity 31.7 ng/L (<3.5-17.0)
[2024-06-05 20:29] LABS: Influenza A PCR NEGATIVE (Negative); Influenza B PCR NEGATIVE (Negative); Resp Syncy Virus RNA Qual PCR NEGATIVE (Negative); SARS COV2 PCR INHOUSE NEGATIVE (Negative)
[2024-06-05 21:33] LABS: D Dimer High Sensitivity < 150 NG/ML
[2024-06-05 21:39] LABS: Partial Thromboplastin Time 29.8 SEC (26.0-36.8)
[2024-06-05 21:49] LABS: Reflex Lactate? Lactic Acid Added
[2024-06-05 21:52] LABS: Appearance Urine Clear; Color Urine Yellow; Glucose Urine UA Negative (Negative); Leukocyte Esterase Urine Negative (Negative); Nitrite Urine Negative (Negative); Specific Gravity - Urine <= 1.005 (1.005-1.025); Urine Blood Negative (Negative); Urine Ketones Negative (Negative); Urine Protein Negative (Neg-Trace)
[2024-06-05 21:56] VITALS: BP 101/67; PULSE 97; RESP 20; O2SAT 97
[2024-06-05 21:58] LABS: Osmolality Urine 129 mosm/kg (373-1093)
[2024-06-05 22:36] LABS: Osmolality, Serum 258 mosm/kg (281-305)
[2024-06-05] MEDS: 0.9 % Sodium Chloride 1,000 ML 75 ML IVCONT (22:36)
[2024-06-05 22:37] LABS: ~Lactic Acid-LAB USE ONLY 0.9 mmol/L (0.5-2.0)
[2024-06-05 22:48] LABS: Troponin-I High Sensitivity 29.2 ng/L (<3.5-17.0)
[2024-06-06 00:32] VITALS: BP 99/66; PULSE 112; RESP 20; TEMP 36.4; O2SAT 97
[2024-06-06 01:06] VITALS: BP 99/66; PULSE 112; RESP 20; TEMP 36.4; O2SAT 97
== END 2024-06-06 00:50 | disposition home or self-care (01) ==
PROVIDERS: Physician Assistant; Emergency Provider Emergency Medicine Emergency Medical Services; PCP Nurse Practitioner Family
DX: R63.1 Polydipsia (principal); E87.1 Hypo-osmolality and hyponatremia; R07.9 Chest pain, unspecified; R42 Dizziness and giddiness; I10 Essential (primary) hypertension; Z03.818 Encounter for observation for suspected exposure to other biological agents ruled out
CPT/HCPCS: 0241U; 36415; 71046; 80053; 81003; 83605; 83690; 83880; 83930; 83935; 84300; 84484; 85025; 85379; 85610; 85730; 87040; 93005; 99283; 99285

== ENCOUNTER → 2024-06-05 18:05 | Outpatient (BNV) | payer OTHER, SELFPAY | PROVIDERS: Emergency Provider Emergency Medicine Emergency Medical Services; PCP Nurse Practitioner Family; Visit Provider Internal Medicine Cardiovascular Disease | DX: R00.0 Tachycardia, unspecified (principal); I51.7 Cardiomegaly | CPT/HCPCS: 93010 ==

== ENCOUNTER 2024-06-10 21:28 | Inpatient (IN) | payer OTHER, SELFPAY ==
--- NOTE | 2024-06-10 | ECG_ITS ---
Test Reason : cp Blood Pressure : / mmHG Vent. Rate : 122 BPM Atrial Rate : 122 BPM P-R Int : 172 ms QRS Dur : 088 ms QT Int : 308 ms P-R-T Axes : 054 121 -33 degrees QTc Int : 438 ms Sinus tachycardia with Baseline wander Possible Left atrial enlargement Right axis deviation Possible Right ventricular hypertrophy ST & T wave abnormality, consider inferior ischemia ST & T wave abnormality, consider anterolateral ischemia Abnormal ECG When compared with ECG of 05-JUN-2024 18:44, No significant changes seen Referred By: Generic ED Physician Electronically Signed By:ALAN EDWARDS MD
--- NOTE | ~2024-06-10 | XR_ITS ---
EXAMINATION: XR CHEST CLINICAL INFORMATION: Shortness of breath COMPARISON: Chest radiograph 06/05/2024 CT chest 08/05/2023 TECHNIQUE: Frontal view of the chest was obtained. FINDINGS: Heart size within normal limits. Again noted is diffuse reticular nodular disease throughout the lungs consistent with interstitial fibrotic changes seen in the prior CT chest. Compared to the prior study, there may be some minimal increased patchy density seen at the left lung base which could represent superimposed infiltrate. No pleural effusions are seen. The bony thorax is unremarkable. XR/XR chest 1V IMPRESSION: Diffuse interstitial fibrotic changes. Question of superimposed infiltrate left lung base.
[2024-06-10 21:37] VITALS: BP 94/66; PULSE 121; RESP 20; TEMP 36.7; O2SAT 92; BMI 24.1
[2024-06-10 22:06] VITALS: BP 91/58; PULSE 117; RESP 20; O2SAT 95
[2024-06-10 22:09] LABS: MANUAL DIFF FLAG NO
--- NOTE | 2024-06-10 22:14 | PC.NURSE ---
this Rn found pt in room, EKG/labs, and pt placed on monitor. Pt reporting intermit CP, on 4L NC baseline 2L NC. Pt speaking in full sentences. Awaiting further orders at this time
[2024-06-10 22:16] LABS: Basophils Absolute Auto 0.1 X10*3/uL (0.0-0.2); Basophils Percent Auto 0.6 % (0-2); Eosinophils Percent Auto 0.3 % (0-4); Hematocrit 33.1 % (37.0-47.0); Hemoglobin 11.1 g/dl (12.0-16.0); Imm Gran Abs Auto 0.07 X10*3/uL (0.00-0.03); Imm Gran Pct Auto 0.6 % (0.0-0.4); Lymphocytes Absolute Auto 1.8 X10*3/uL (1.2-4.9); Lymphocytes Percent Auto 14.2 % (20-40); Mean Corpuscular HGB Conc 33.5 g/dl (31.0-35.0); Mean Corpuscular Hemoglobin 28.9 pg (27.0-33.0); Mean Corpuscular Volume 86.2 fL (80.0-98.0); Mean Platelet Volume 10.2 fL (9.4-12.3); Monocytes Absolute Auto 0.7 X10*3/uL (0.1-1.2); Monocytes Percent Auto 5.8 % (2-11); Neutrophils Absolute Auto 9.7 x10*3/uL (2.0-8.3); Neutrophils Percent Auto 78.5 % (45-73); Platelet Count 353 X10*3/uL (160-400); Red Blood Count 3.84 X10*6/uL (4.20-5.50); Red Cell Distribution Width 14.3 % (11.0-16.0); White Blood Count 12.3 X10*3/uL (4.8-10.8)
--- NOTE | 2024-06-10 22:18 | ED.SOB ---
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 on 05/14/24 which showed diastolic heart dysfunction patient is saturating 78% at room air at home without oxygen as she does not have any portable oxygen for last 2 months Related Data Home Medications ?Medication ?Instructions ?Recorded ?Confirmed alprazolam 2 mg tablet 0.5 mg PO BEDTIME PRN 03/08/23 04/24/24 L.ham, dave, tinsley, rham 15 cap PO 04/09/24 04/24/24 billion cell-bacterioph 15 mg capsule ([facility] Women's 4-in-1) Previous Rx's ?Medication ?Instructions ?Recorded albuterol sulfate 0.63 mg/3 mL 0.63 mg (3 mL) inhalation QID PRN 02/18/21 solution for nebulization shortness of breath or wheezing #75 mL nebulizer and compressor #1 ea 03/06/21 blood pressure monitor #1 ea 02/26/22 crutches (pair of crutches) #1 ea 03/31/22 albuterol sulfate 90 mcg/actuation 1 puff PO QID PRN for wheezing 09/27/22 aerosol inhaler #8.5 grams docusate sodium 100 mg capsule 100 mg PO BEDTIME #90 caps 11/17/22 dicyclomine 10 mg capsule 10 mg PO TID #90 caps 03/04/23 methylcellulose (laxative) 500 mg 500 mg PO DAILY #90 tabs 03/04/23 tablet (Citrucel) HurryCane #1 ea 06/14/23 lactobacillus combination no.9 4 4,000 mmu cells PO DAILY #7 caps 09/02/23 billion cell capsule (Adult 50 Plus Probiotic) cholecalciferol (vitamin D3) 50 50 mcg PO DAILY #90 caps 10/10/23 mcg (2,000 unit) capsule COVID-19 antigen test #1 ea 10/13/23 losartan 50 mg tablet 50 mg PO DAILY #90 tabs 11/07/23 calcium carbonate 600 mg-vitamin 1 tab PO DAILY #90 tabs 11/08/23 D3 5 mcg (200 unit) tablet food supplemt, lactose-reduced 1 ea PO BID #60 ea 12/09/23 (Ensure oral liquid) L. crispatus, gasseri, jensenii, 1 cap PO DAILY 90 days #90 caps 12/14/23 rhamnosus 15 billion cell capsule prednisone 5 mg tablet 5 mg PO DAILY 30 days #30 tabs 12/23/23 sennosides 8.6 mg tablet (Natural 8.6 mg PO BEDTIME constipation #90 03/15/24 Senna Laxative) tabs gabapentin 400 mg capsule 800 mg (2 x 400 mg) PO QID 90 days 04/05/24 #720 caps folic acid 1 mg tablet 1 mg PO DAILY #30 tabs 04/09/24 vitamin A palmitate 3,000 mcg 10,000 unit PO DAILY #90 tabs 04/09/24 (10,000 unit) tablet naloxegol 12.5 mg tablet (Movantik) 12.5 mg PO QAM #30 tabs 04/10/24 ondansetron 4 mg disintegrating 4 mg PO Q8H PRN nausea and 04/30/24 tablet vomiting 30 days #90 tabs hydrochlorothiazide 12.5 mg tablet 12.5 mg PO DAILY #90 tabs 05/03/24 morphine 15 mg immediate release 15 mg PO Q6H PRN pain, severe 30 05/17/24 tablet days #120 tabs Allergies Allergy/AdvReac Type Severity Reaction Status Date / Time No Known Allergies Allergy Verified 06/10/24 21:37 Review of Systems Review of Systems: Yes all other systems are reviewed and are negative [facility] Past Medical History Medical History Osteomyelitis Lymphadenopathy, mediastinal Respiratory failure Chest pain Congestive heart failure (CHF) 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 Social History Social History Household Members: None [facility] Do you presently have visiting nurse or other home services: No Alcohol intake: never Patient Tobacco Use Status: Current everyday Tobacco user Tobacco use type: Cigarette Cigarettes Per Day: 1 Years Smoked: 30 Smoked in Last 30 Days: Yes e-Cigarette/Vaping Use: Never Used Second Hand Smoke Exposure: No Advance Directives: No Advance Directives Information Provided: No Advance Directives Date on File: 08/05/21 service: No Current occupational status: disabled Cognitive needs: No Hearing needs: No Vision needs: No Physical Exam Vital Signs: Vital Signs: Last Vital Signs Temp 98.3 F 06/10/24 22:47 Pulse 109 H 06/10/24 22:58 Resp 17 06/10/24 22:58 BP 104/68 06/10/24 22:47 Pulse Ox 92 06/10/24 22:47 O2 Del Method Nasal Cannula 06/10/24 22:47 O2 Flow Rate 2 06/10/24 22:47 Oxygen Flow Rate 4 06/10/24 21:37 BMI result Body Mass Index 24.1 Appearance: Alert. Oriented X3. No acute distress. Eyes: PERRLA, No Nystagmus ENT: Pharynx normal. Oral Mucosa moist Neck: Normal inspection. Neck supple. CVS: Normal heart rate and rhythm. Pulses normal. Respiratory: No respiratory distress. Equal air entry bilateral, bilateral wheezing with a bilateral fine crackles Abdomen: Soft and nontender. Bowel sounds are present, no mass palpable, no CVA tenderness Skin: Skin warm and dry. Normal skin color. Normal skin turgor. Extremities: No lower extremity edema. No calf tenderness Neuro: Oriented X 3. No motor deficit. Medications Administered Generic Name Dose Route Start Last Admin Trade Name Freq PRN Reason Stop Dose Admin Sodium Chloride 1,000 mls @ 80 mls/hr 06/11/24 00:15 06/11/24 01:06 Ns IVCONT 125 mls/hr .[id number] DANGELO Administration Discontinued Medications Generic Name Dose Route Start Last Admin Trade Name Nuno PRN Reason Stop Dose Admin Albuterol Sulfate 2.5 mg/ 0 mg 06/10/24 22:20 06/10/24 22:54 Albuterol/Ipratropium 3 ml INHALE 06/10/24 22:21 1 dose ONCE ONE Administration Sodium Chloride 1,000 mls @ 999 mls/hr 06/10/24 23:06 06/11/24 00:11 Ns IV 06/11/24 00:06 Infused .Q1H1M ONE Infusion Methylprednisolone Sodium Succinate 125 mg 06/10/24 22:20 06/10/24 23:08 Methylprednisolone Sod Succ 125 Mg/2 Ml Vial IVPUSH 06/10/24 22:21 125 mg ONCE ONE Administration Ondansetron HCl 4 mg 06/10/24 23:06 06/10/24 23:11 Ondansetron Hcl 4 Mg/2 Ml Vial IVPUSH 06/10/24 23:07 4 mg ONCE ONE Administration Medical Decision Making Medical Decision Making [facility] Narrative: Patient with significant chronic interstitial lung disease oxygen dependent steroid dependent with nonobstructive demand ischemia from hypoxemia with history of chronic chest pain with previous workup negative EKG without any acute ischemic changes when patient came to the ER saturating 78% when she ambulated from her car to the triage area likely the cause of elevated troponin although CPK was normal also lab shows creatinine of 1.73 which is elevated from her baseline of 0.8 had hyponatremia of 126 during previous visit on 06/05 patient had low serum osmolarity of 258 and urine of 129 and sodium of 20 likely from diuretic use and free water intake will admit patient for further evaluation Differential Diagnosis Differential Diagnoses: The differential diagnosis associated with the presentation includes Chest pain/CHF/chronic lung disease Admission/Observation Consideration of admission/observation: Escalation of care including admission/observation considered Consult Healthcare Provider Management of the patient was discussed with: Hospitalist Lab Data [facility] Lab Attestation statement: I reviewed the patient's lab results. 06/10/24 22:05 06/10/24 22:05 Labs: Lab Results 06/10/24 06/11/24 Range/Units 22:05 00:30 WBC 12.3 H (4.8-10.8) X10*3/uL RBC 3.84 L (4.20-5.50) X10*6/uL Hgb 11.1 L (12.0-16.0) g/dl Hct 33.1 L (37.0-47.0) % MCV 86.2 (80.0-98.0) fL MCH 28.9 (27.0-33.0) pg MCHC 33.5 (31.0-35.0) g/dl RDW 14.3 (11.0-16.0) % Plt Count 353 (160-400) X10*3/uL MPV 10.2 (9.4-12.3) fL Immature Gran % (Auto) 0.6 H (0.0-0.4) % Neut % (Auto) 78.5 H (45-73) % Lymph % (Auto) 14.2 L (20-40) % [place] % (Auto) 5.8 (2-11) % Eos % (Auto) 0.3 (0-4) % Baso % (Auto) 0.6 (0-2) % Lymph # (Auto) 1.8 (1.2-4.9) X10*3/uL [place] # (Auto) 0.7 (0.1-1.2) X10*3/uL Eos # (Auto) 0.0 (0.0-0.4) X10*3/uL Baso # (Auto) 0.1 (0.0-0.2) X10*3/uL Abs Immat Gran (auto) 0.07 H (0.00-0.03) X10*3/uL Absolute Neuts (auto) 9.7 H (2.0-8.3) x10*3/uL Absolute Nucleated RBC 0.000 (0.0-0.012) X10*3/uL Nucleated RBC % (auto) 0.0 (0.0-0.2) /100WBC Sodium 126 L (135-145) mmol/L Potassium 3.1 L (3.3-5.1) mmol/L Chloride 81 L (96-108) mmol/L Carbon Dioxide 28 (22-29) mmol/L Anion Gap 20 (12-20) BUN 19 H (9-16) mg/dL Creatinine 1.73 H (0.5-1.4) mg/dL Estim Creat Clear Calc 25.2 Estimated GFR 30 Random Glucose 120 H (60-115) mg/dL Calcium 8.7 (8.4-10.2) mg/dL Total Bilirubin 1.1 H (0.0-1.0) mg/dL AST 43 H (5-31) U/L ALT 21 (0-31) U/L Alkaline Phosphatase 95 (39-117) U/L Total Creatine Kinase 76 (26-140) U/L Troponin I High Sens 152.5 H* D 133.2 H* (<3.5-17.0) ng/L Total Protein 6.6 (6.5-8.0) g/dL Albumin 3.2 L (3.5-5.0) g/dL Independent Interpretation I performed an independent interpretation of an: EKG and Plain X-Ray Interpretation: Sinus tachycardia with heart rate 122 beats per minute right axis deviation nonspecific STT wave changes diffuse no acute changes as compared to EKG on 06/03/2024 Radiology Impression Discussion of test interpretation with radiology: I have reviewed the radiologist's reading. Critical Care Time Critical Care Time Critical Care Time: Yes Total Critical Care Time: 50 Attestation: The patient was critically ill with a high probability of imminent or life threatening deterioration. I spent greater than 55???minutes of discontinuous time evaluating the patient,delivering critical care at the bedside, discussing and evaluating pertinent data with consultants. Critical care time does not include time spent performing separately billable procedures or teaching. Total time spent performing critical care was 50???minutes. Discharge Plan Discharge Clinical Impression: Acute renal failure, Chest pain, Chronic hyponatremia, Acute and chronic respiratory failure with hypoxia Patient Disposition: Admitted As Inpatient Print Language: Chinese
[2024-06-10 22:24] LABS: Alanine Aminotransferase 21 U/L (0-31); Albumin Level 3.2 g/dL (3.5-5.0); Alkaline Phosphatase 95 U/L (39-117); Anion Gap 20 (12-20); Aspartate Amino Transferase 43 U/L (5-31); Bilirubin Total 1.1 mg/dL (0.0-1.0); Blood Urea Nitrogen 19 mg/dL (9-16); Calcium 8.7 mg/dL (8.4-10.2); Carbon Dioxide 28 mmol/L (22-29); Chloride 81 mmol/L (96-108); Creatinine Clr Calc Pharmacy 25.2; Estimated Glomerular Filt Rate 30; Glucose Random 120 mg/dL (60-115); Potassium 3.1 mmol/L (3.3-5.1); Sodium 126 mmol/L (135-145); Total Protein 6.6 g/dL (6.5-8.0)
[2024-06-10 22:38] LABS: Troponin-I High Sensitivity 152.5 ng/L (<3.5-17.0)
[2024-06-10 22:47] VITALS: BP 104/68; PULSE 112; RESP 23; TEMP 36.8; O2SAT 92
[2024-06-10] MEDS: Albuterol Sulfate 2.5 MG, Albuterol/Iprat 2.5/0.5MG 3 ML 3 ML INHALE (22:54)
[2024-06-10 22:58] VITALS: PULSE 109; RESP 17; O2SAT 93
[2024-06-10] MEDS: methylPREDNISolone Sod Succ 125 MG/2 ML VIAL IVPUSH (23:08)
[2024-06-10] MEDS: 0.9 % Sodium Chloride 1,000 ML 999 ML IV (23:08)
[2024-06-10] MEDS: ondansetron HCL 4 MG/2 ML VIAL IVPUSH (23:11)
[2024-06-11] VITALS (11 sets, daily range): BP systolic 91–120; BP diastolic 56–80; PULSE 63–100; RESP 12–20; TEMP 36.1–37; O2SAT 88–98
[2024-06-11 00:57] LABS: Troponin-I High Sensitivity 133.2 ng/L (<3.5-17.0)
[2024-06-11] MEDS: 0.9 % Sodium Chloride 1,000 ML 80 ML IVCONT ×2 (01:06→12:22)
--- NOTE | 2024-06-11 01:57 | PM.IMHP ---
History of Present Illness Date of Service: 06/11/24 Attending physician on admission: Taylor Noe Chief Complaint: Shortness of the breath, chest tightness Amna Mcfadden is a very pleasant 64 years old woman with past medical history significant for idiopathic pulmonary fibrosis on home oxygen -2L/min prednisone daily, , essential hypertension (on losartan and hydrochlorothiazide) and diastolic congestive heart failure presents to the emergency department complaining of worsening shortness of breath associated, wheezing, cough with chest tightness. She also stated that she has been feeling very nauseous and has not been drinking too much fluids per provider recommendations as it was thought that she was intoxicated with water. She was recently seen in the emergency department for chest pain and was found to have hyponatremia and elevation of troponin. She did not report any headache, fever or chills. She did not report any acute abdominal pain, diarrhea or any urinary changes. She denied tobacco smoking, alcohol abuse or illicit drug use. Sometimes she consumes marijuana edibles. In the ED today, she was found to have low-grade tachycardia and tachypnea. Last blood pressure is 104/68. Oxygen saturation is normal on 2 liters/minute via nasal cannula which is her baseline. There is no fever. Blood workup was remarkable for hyponatremia 126, potassium is 3.1 and there is leukocytosis of 12.3. Serum osmolality is 258. LFTs are essentially unremarkable except for slight elevation of bilirubin and AST. Alk-phos and ALT are normal. Troponin is 152.5 --> 133.2. CXR showed diffuse interstitial fibrotic changes, question of superimposed infiltrate left lower lobe. ECG showed sinus tachycardia, heart rate 122 bpm, ST depressions anterior and inferolateral leads. Chart review: Echo 04/2024 - EF 70%, grade 1 diastolic dysfunction. No significant valve changes. ED tx: DuoNeb, Solu-Medrol 125 mg IV, NS 1 L bolus, Zofran 4 mg IV Review of Systems Review of Systems: All 12 systems were reviewed and normal except as noted in HPI. 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 Surgical History History of transmetatarsal amputation of right foot History of colonoscopy Social History Household Members: Other Household Members Other:: Dog [facility]: [facility] Do you presently have visiting nurse or other home services: No Alcohol intake: never Patient Tobacco Use Status: Former Tobacco user Tobacco use type: Cigarette Cigarettes Per Day: 1 Years Smoked: 30 Smoked in Last 30 Days: Yes e-Cigarette/Vaping Use: Never Used Second Hand Smoke Exposure: No Substance Use Type: Marijuana Have you been hit, kicked, punched, or otherwise hurt by someone within the past year? If so, by whom?: No Do you feel safe in your current relationship?: No Current Relationship Is there a partner from a previous relationship who is making you feel unsafe now?: No Are you made to feel afraid or neglected: No Advance Directives: No Advance Directives Information Provided: No Advance Directives Date on File: 08/05/21 Do you have a plan to hurt others: No Plan Recently lost weight without trying: Yes How much weight loss: 2-13 pounds Eating poorly because of decreased appetite: Yes Nutrition screen score: 4 Nutrition Risks: No Nutritional Risk Patient : No : No Poor oral hygiene: No service: No Current occupational status: disabled Cognitive needs: No Hearing needs: No Vision needs: No Meds Allergies Allergy/AdvReac Type Severity Reaction Status Date / Time No Known Allergies Allergy Verified 06/10/24 21:37 Active Medications: Current Medications Acetaminophen (Acetaminophen 325 Mg Tablet) 975 mg PO Q6H PRN PRN Reason: Pain, Mild (Pain Scale 1-3), fever or headache Albuterol Sulfate (Albuterol Sulfate (0.083%) 2.5 Mg/3 Ml Vial.Neb) 2.5 mg INHALE Q2H PRN PRN Reason: Shortness of Breath/Wheezing Albuterol/Ipratropium (Albuterol/Iprat 2.5/0.5mg 3 Ml Ampul.Neb) 3 ml INHALE RQ4H WHILE AWAKE DANGELO Alprazolam (Alprazolam 0.25 Mg Tablet) 0.25 mg PO Q8H PRN PRN Reason: anxiety Aspirin (Aspirin 81 Mg Tab.Chew) 324 mg PO ONCE STA Stop: 06/11/24 01:50 Enoxaparin Sodium (Enoxaparin Sodium 60 Mg/0.6 Ml Syringe) 50 mg 1 mg/kg (50 mg) SUBCUT ONCE ONE Stop: 06/11/24 01:51 Sodium Chloride (Ns) 1,000 mls @ 80 mls/hr IVCONT .[id number] DANGELO Last Admin: 06/11/24 01:06 Dose: 125 mls/hr Doxycycline Hyclate 100 mg/ (Sodium Chloride) 250 mls @ 166.67 mls/hr IV Q12H DANGELO Melatonin (Melatonin 3 Mg Tablet) 6 mg PO BEDTIME PRN PRN Reason: Insomnia Methylprednisolone Sodium Succinate (Methylprednisolone Sod Succ 40 Mg/Ml Vial) 40 mg IVPUSH BID [facility] Oxycodone HCl (Oxycodone Hcl Immed Release 5 Mg Tablet) 5 mg PO Q6H PRN PRN Reason: Pain, Severe (Pain Scale 7-10) Pantoprazole Sodium (Pantoprazole Sodium 40 Mg/10 Ml Vial) 40 mg IVPUSH DAILY [facility] Potassium Chloride (Potassium Chloride Er 20 Meq Tab.Er.Prt) 20 meq PO ONCE ONE Stop: 06/11/24 01:57 Sodium Chloride (0.9 % Sodium Chloride Flush 3 Ml Syringe) 3 ml IVFLUSH QSHIFT [facility] Home Medications ?Medication ?Instructions ?Recorded ?Confirmed ?Last Taken ?Type alprazolam 2 mg tablet 0.5 mg PO BEDTIME PRN 03/08/23 04/24/24 Unknown History L.ham, dave, laureano, rhlay 15 cap PO 04/09/24 04/24/24 Unknown History billion cell-bacterioph 15 mg capsule ([employer] Women's 4-in-1) Physical Exam Vital Signs and Narrative: Vital Signs: Last Vital Signs Temp 98.3 F 06/10/24 22:47 Pulse 109 H 06/10/24 22:58 Resp 17 06/10/24 22:58 BP 104/68 06/10/24 22:47 Pulse Ox 92 06/10/24 22:47 O2 Del Method Nasal Cannula 06/10/24 22:47 O2 Flow Rate 2 06/10/24 22:47 Oxygen Flow Rate 4 06/10/24 21:37 BMI result Body Mass Index 24.1 Constitutional - Awake and Alert, No apparent distress. Chronically ill. NC in place. Afebrile. Cooperative. Pleasant. HEENT - PERRL, EOMI. Dry oral mucosa. Heart - RRR, No edema Lungs - Normal lung expansion, Normal respiratory effort. Tachypnea. Bilateral prominent rhonchi. No crackles. Abdomen - NT / ND; +BS; No rebound or guarding - No CVA tenderness Extremities - no calf tenderness bilaterally, no swelling Musculoskeletal - Normal inspection, normal ROM Skin - Warm/Dry Neurological - Alert & oriented x3. No focal weakness grossly noted. Normal speech. Psychological - Depressed affect Results Labs 06/10/24 22:05 06/10/24 22:05 Labs: Laboratory Results - last 24 hr 06/10/24 06/11/24 22:05 00:30 MCV 86.2 MCH 28.9 MCHC 33.5 RDW 14.3 Plt Count 353 MPV 10.2 Immature Gran % (Auto) 0.6 H Neut % (Auto) 78.5 H Lymph % (Auto) 14.2 L [place] % (Auto) 5.8 Eos % (Auto) 0.3 Baso % (Auto) 0.6 Lymph # (Auto) 1.8 [place] # (Auto) 0.7 Eos # (Auto) 0.0 Baso # (Auto) 0.1 Abs Immat Gran (auto) 0.07 H Absolute Neuts (auto) 9.7 H Absolute Nucleated RBC 0.000 Nucleated RBC % (auto) 0.0 Anion Gap 20 Estim Creat Clear Calc 25.2 Estimated GFR 30 Random Glucose 120 H Calcium 8.7 Total Bilirubin 1.1 H AST 43 H ALT 21 Alkaline Phosphatase 95 Total Creatine Kinase 76 Troponin I High Sens 152.5 H* D 133.2 H* Total Protein 6.6 Albumin 3.2 L Imaging Radiologist's Impressions: Impressions Chest X-Ray 06/11/24 00:25 IMPRESSION: Diffuse interstitial fibrotic changes. Question of superimposed infiltrate left lung base. Assessment and Plan (1) MOISES (acute kidney injury): Status: Acute (2) Acute hyponatremia: Status: Acute (3) Hypokalemia: Status: Acute (4) Chest pain: Status: Acute (5) Non-STEMI (non-ST elevated myocardial infarction): Status: Acute Plan Amna Mcfadden is a 64 y/o woman admitted with: Acute exacerbation of interstitial lung disease. Admit to hospitalist service. Telemetry. Pulse oximetry. Supplemental oxygen to keep O2 sats > 90%. Bronchodilator therapy every 4 hours and every 2 hours as needed. Continue IV steroids. Start empiric IV antibiotic therapy with doxycycline. Pulmonology consult. Acute kidney injury. Likely secondary to poor p.o. intake, diuretic use and losartan. Hold hydrochlorothiazide and losartan. Hydration. Continue to monitor renal function. Avoid nephrotoxic agents. Acute hyponatremia. Likely secondary to poor p.o. intake, use of diuretics and losartan. Hydration. Continue to monitor Na level q6h. Avoid over-correction. Check TSH. Nephrology consult. Hypokalemia. Likely secondary to hydrochlorothiazide. Replete as needed. Hold hydrochlorothiazide. Check magnesium. Continue to monitor K level. Chest pain + elevated troponin. ECG ischemic changes (similar to prior). Start tx with aspirin and Lovenox. Nitroglycerin 0.4 mg sublingual every 5 mins X3 chest pain. Trend troponin. Cardiology consult. HFpEF. Not decompensated. Essential hypertension. Losartan on hold due to MOISES. Chronic pain. Morphine on hold due to MOISES. Oxycodone as needed. Anxiety. Continue low-dose Xanax as needed. Neuropathy. Gabapentin on hold due to MOISES. Code status: Full DVT prophylaxis: Lovenox, SCDs. GI prophylaxis: Protonix IV Patient will need hospitalization for at least 2 midnights for multiple acute issues treatment including acute exacerbation of interstitial lung disease, MOISES, chest pain and multiple electrolyte imbalances with continuous cardiac monitoring and vital signs as well as supplemental oxygen, bronchodilator therapy IV fluids and IV hydration. She will also need evaluation by multiple subspecialties. Quality Stroke Does the patient have a stroke diagnosis?: No VTE Prior VTE?: No VTE Risk Level:: Medical - moderate - high VTE Device Contraindication: Treatment Not Indicated VTE Drug Contraindication: N/A - Med Ordered
[2024-06-11] MEDS: Albuterol/Iprat 2.5/0.5MG 3 ML AMPUL.NEB INHALE ×4 (01:59→19:42)
[2024-06-11] MEDS: Potassium Chloride ER 20 MEQ TAB.ER.PRT PO (02:45)
[2024-06-11] MEDS: Aspirin 81 MG TAB.CHEW 324 MG PO (02:45)
[2024-06-11] MEDS: Doxycycline Hyclate 100 MG in 0.9 % Sodium Chloride 250 ML 166.67 MG IV ×2 (02:46→15:14)
[2024-06-11 02:47] LABS: Magnesium 1.4 mg/dL (1.6-2.6); Thyroid Stimulating Hormone 1.73 uIU/mL (0.32-4.0)
[2024-06-11 03:03] LABS: Amphetamine Screen Urine POSITIVE (Not Detect); Barbiturates, Urine Not Detected (Not Detect); Benzodiazepines Screen Urine POSITIVE (Not Detect); Buprenorphine Scr Not Detected (Not Detect); Cannabinoid Screen Urine POSITIVE (Not Detect); Cocaine Screen Urine Not Detected (Not Detect); Fentanyl, urine Not Detected (Not Detect); Methadone Screen, Urine Not Detected (Not Detect); Opiate Screen Urine POSITIVE (Not Detect); Oxycodone Screen Urine Not Detected (Not Detect); Phencyclidine Screen Urine Not Detected (Not Detect)
[2024-06-11] MEDS: Magnesium Sulfate/H2O 2 GM/50 ML PIGGYBACK IV (04:31)
[2024-06-11 08:04] LABS: Basophils Percent Auto 0.2 % (0-2); Hematocrit 31.2 % (37.0-47.0); Imm Gran Abs Auto 0.04 X10*3/uL (0.00-0.03); Imm Gran Pct Auto 0.6 % (0.0-0.4); Lymphocytes Absolute Auto 0.5 X10*3/uL (1.2-4.9); Lymphocytes Percent Auto 7.9 % (20-40); MANUAL DIFF FLAG SCAN; Mean Corpuscular HGB Conc 35.3 g/dl (31.0-35.0); Mean Corpuscular Hemoglobin 29.6 pg (27.0-33.0); Mean Corpuscular Volume 84.1 fL (80.0-98.0); Mean Platelet Volume 10.7 fL (9.4-12.3); Monocytes Percent Auto 0.6 % (2-11); Neutrophils Absolute Auto 5.8 x10*3/uL (2.0-8.3); Neutrophils Percent Auto 90.7 % (45-73); Platelet Count 303 X10*3/uL (160-400); Red Blood Count 3.71 X10*6/uL (4.20-5.50); Red Cell Distribution Width 14.2 % (11.0-16.0); SCAN SMEAR FLAG 1; White Blood Count 6.4 X10*3/uL (4.8-10.8)
[2024-06-11 08:14] LABS: Estimated Average Glucose 117 mg/dL; Hemoglobin A1c % 5.7 % (<6.0)
[2024-06-11 08:21] LABS: Alanine Aminotransferase 24 U/L (0-31); Albumin Level 2.9 g/dL (3.5-5.0); Alkaline Phosphatase 86 U/L (39-117); Anion Gap 15 (12-20); Aspartate Amino Transferase 39 U/L (5-31); Bilirubin Total 0.6 mg/dL (0.0-1.0); Blood Urea Nitrogen 18 mg/dL (9-16); Calcium 8.2 mg/dL (8.4-10.2); Carbon Dioxide 26 mmol/L (22-29); Chloride 89 mmol/L (96-108); Cholesterol 98 mg/dL (<200); Creatinine Clr Calc Pharmacy 35.6; Estimated Glomerular Filt Rate 44; Glucose Random 169 mg/dL (60-115); HDL Cholesterol 28 mg/dL (>40); LDL Cholesterol Calculated 59 mg/dL (<100); Magnesium 2.4 mg/dL (1.6-2.6); Potassium 3.1 mmol/L (3.3-5.1); Sodium 127 mmol/L (135-145); Total Protein 6.1 g/dL (6.5-8.0); Triglycerides 57 mg/dL (<150)
[2024-06-11 08:22] LABS: Reflex LDLD? No
[2024-06-11 08:35] LABS: SLIDE REVIEW VERIFIED
[2024-06-11 08:37] LABS: Troponin-I High Sensitivity 128.8 ng/L (<3.5-17.0)
--- NOTE | 2024-06-11 08:56 | PM.CNPUL ---
History of Present Illness History of Present Illness Consult date: 06/11/24 Chief complaint: Acute exacerbation COPD, MOISES Narrative: This is an inpatient pulmonary consultation.64 years old woman with past medical history significant for Pulmonary fibrosis on home oxygen -2L/min prednisone daily, , essential hypertension (on losartan and hydrochlorothiazide) and diastolic congestive heart failure presents to the emergency department complaining of worsening shortness of breath associated, wheezing, cough with chest tightness. She also stated that she has been feeling very nauseous and has not been drinking too much fluids per provider recommendations as it was thought that she was intoxicated with water. She was recently seen in the emergency department for chest pain and was found to have hyponatremia and elevation of troponin. She did not report any headache, fever or chills. She did not report any acute abdominal pain, diarrhea or any urinary changes. She denied tobacco smoking, alcohol abuse or illicit drug use. Sometimes she consumes marijuana edibles. The patient did have a chest x-ray demonstrating the persistent interstitial lung disease in addition to likely a superimposed airspace disease. She was started on doxycycline. Clinically the patient starts to feel better. She is still using her oxygen. She is having hard time with heated humidity. Review of Systems Constitutional: Constitutional: Denies night sweats ENT: Denies change in voice, Denies lip swelling, Denies mouth pain, Reports nasal congestion, Reports nasal discharge and Denies tongue swelling Cardiovascular: Cardiovascular: Denies chest pain, Reports dyspnea and Reports dyspnea on exertion Respiratory: Respiratory: Reports cough, Reports dyspnea and Reports dyspnea on exertion Gastrointestinal: Gastrointestinal: Denies abdominal pain Musculoskeletal: Musculoskeletal: Denies no additional musculoskeletal complaints Neurologic: Denies Neuro-related abnormal movements Psychiatric: Psychiatric: Denies no additional psychiatric complaints Hematologic/Lymphatic: Hematologic/Lymphatic: Denies easy bleeding and Denies lymphadenopathy Allergic/Immunologic: Allergic/Immunologic: Denies lip swelling and Denies tongue swelling [facility] Past Medical History Medical History (Updated 06/11/24 @ 08:59 by Glynn Luis MD) ILD (interstitial lung disease) Osteomyelitis Lymphadenopathy, mediastinal Respiratory failure Chest pain Congestive heart failure (CHF) Chronic pain syndrome skilled nursing (current) use of opiate analgesic Complex regional pain syndrome of right lower extremity Scoliosis Chronic idiopathic constipation IBS (irritable bowel syndrome) ADHD Anxiety Depression Constipation 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 Surgical History Surgical History History of transmetatarsal amputation of right foot History of colonoscopy Social History Social History Household Members: Other Household Members Other:: Dog Housing: Condominium Do you presently have visiting nurse or other home services: No Alcohol intake: never Patient Tobacco Use Status: Former Tobacco user Tobacco use type: Cigarette Cigarettes Per Day: 1 Years Smoked: 30 Smoked in Last 30 Days: Yes e-Cigarette/Vaping Use: Never Used Second Hand Smoke Exposure: No Substance Use Type: Marijuana Have you been hit, kicked, punched, or otherwise hurt by someone within the past year? If so, by whom?: No Do you feel safe in your current relationship?: No Current Relationship Is there a partner from a previous relationship who is making you feel unsafe now?: No Are you made to feel afraid or neglected: No Advance Directives: No Advance Directives Information Provided: No Advance Directives Date on File: 08/05/21 Do you have a plan to hurt others: No Plan Recently lost weight without trying: Yes How much weight loss: 2-13 pounds Eating poorly because of decreased appetite: Yes Nutrition screen score: 4 Nutrition Risks: No Nutritional Risk Patient : No : No Poor oral hygiene: No service: No Current occupational status: disabled Cognitive needs: No Hearing needs: No Vision needs: No Meds Allergies Allergy/AdvReac Type Severity Reaction Status Date / Time No Known Allergies Allergy Verified 06/10/24 21:37 Active Medications: Current Medications Acetaminophen (Acetaminophen 325 Mg Tablet) 975 mg PO Q6H PRN PRN Reason: Pain, Mild (Pain Scale 1-3), fever or headache Albuterol Sulfate (Albuterol Sulfate (0.083%) 2.5 Mg/3 Ml Vial.Neb) 2.5 mg INHALE Q2H PRN PRN Reason: Shortness of Breath/Wheezing Albuterol/Ipratropium (Albuterol/Iprat 2.5/0.5mg 3 Ml Ampul.Neb) 3 ml INHALE RQ4H WHILE AWAKE [facility] Last Admin: 06/11/24 07:15 Dose: Not Given Alprazolam (Alprazolam 0.25 Mg Tablet) 0.25 mg PO Q8H PRN PRN Reason: anxiety Aspirin (Aspirin Enteric Coated 81 Mg Tablet.Dr) 81 mg PO DAILY [facility] Heparin Sodium (Porcine) (Heparin Sodium,Porcine 5,000 Unit/Ml Vial) 5,000 unit SUBCUT Q12H [facility] Sodium Chloride (Ns) 1,000 mls @ 80 mls/hr IVCONT .[id number] [facility] Last Admin: 06/11/24 01:06 Dose: 80 mls/hr Doxycycline Hyclate 100 mg/ (Sodium Chloride) 250 mls @ 166.67 mls/hr IV Q12H [facility] Last Infusion: 06/11/24 04:16 Dose: Infused Melatonin (Melatonin 3 Mg Tablet) 6 mg PO BEDTIME PRN PRN Reason: Insomnia Methylprednisolone Sodium Succinate (Methylprednisolone Sod Succ 40 Mg/Ml Vial) 40 mg IVPUSH BID [facility] Nitroglycerin (Nitroglycerin 0.4 Mg Tab.Subl) 0.4 mg SUBLINGUAL Q5MX3 PRN PRN Reason: Chest Pain Oxycodone HCl (Oxycodone Hcl Immed Release 5 Mg Tablet) 5 mg PO Q6H PRN PRN Reason: Pain, Severe (Pain Scale 7-10) Pantoprazole Sodium (Pantoprazole Sodium 40 Mg/10 Ml Vial) 40 mg IVPUSH DAILY [facility] Sodium Chloride (0.9 % Sodium Chloride Flush 3 Ml Syringe) 3 ml IVFLUSH QSHIFT [facility] Home Medications ?Medication ?Instructions ?Recorded ?Confirmed ?Last Taken ?Type alprazolam 2 mg tablet 2 mg PO TID PRN Anxiety 03/08/23 04/24/24 Unknown History dextroamphetamine-amphetamine 30 1 tab PO TID 06/11/24 Unknown History mg tablet Physical Exam Vital Signs: Vital Signs: Last Vital Signs Temp 97.8 F 06/11/24 08:00 Pulse 83 06/11/24 08:00 Resp 19 06/11/24 08:00 BP 99/62 06/11/24 08:00 Pulse Ox 95 06/11/24 08:00 O2 Del Method Nasal Cannula 06/11/24 08:00 O2 Flow Rate 3 06/11/24 08:00 Oxygen Flow Rate 4 06/10/24 21:37 BMI result Body Mass Index 24.1 Const: General: alert Eyes: Pupils: Equal, round and reactive pupils present Neck: Neck: Yes normal visual inspection, Yes full ROM and Yes no lymphadenopathy Chest: Chest palpation & inspection: normal inspection of the chest Resp: Auscultation: crackles, rales and diminished lung sounds Cardio: Rate: regular rate Rhythm: regular rhythm Heart sounds: S1 normal heart sound present and S2 normal heart sound present GI: Palpation (GI): Soft to palpation and nontender Auscultation: normal bowel sounds Skin: General skin exam: rashes and/or lesions noted Neuro: Cranial nerves: Yes Equal, round and reactive pupils present Results Laboratory Findings 06/11/24 07:26 06/11/24 07:26 Abnormal lab findings: Abnormal Labs 06/10/24 06/11/24 06/11/24 22:05 00:30 02:39 WBC 12.3 H RBC 3.84 L Hgb 11.1 L Hct 33.1 L MCHC Immature Gran % (Auto) 0.6 H Neut % (Auto) 78.5 H Lymph % (Auto) 14.2 L [place] % (Auto) Lymph # (Auto) [place] # (Auto) Abs Immat Gran (auto) 0.07 H Absolute Neuts (auto) 9.7 H Sodium 126 L Potassium 3.1 L Chloride 81 L BUN 19 H Creatinine 1.73 H Random Glucose 120 H Calcium Magnesium 1.4 L* Total Bilirubin 1.1 H AST 43 H Troponin I High Sens 152.5 H* D 133.2 H* Total Protein Albumin 3.2 L HDL Cholesterol Urine Opiates Screen POSITIVE H Ur Amphetamines Screen POSITIVE H U Benzodiazepines Scrn POSITIVE H U Marijuana (THC) Screen POSITIVE H 06/11/24 07:26 WBC RBC 3.71 L Hgb 11.0 L Hct 31.2 L MCHC 35.3 H Immature Gran % (Auto) 0.6 H Neut % (Auto) 90.7 H Lymph % (Auto) 7.9 L [place] % (Auto) 0.6 L Lymph # (Auto) 0.5 L [place] # (Auto) 0.0 L Abs Immat Gran (auto) 0.04 H Absolute Neuts (auto) Sodium 127 L Potassium 3.1 L Chloride 89 L BUN 18 H Creatinine Random Glucose 169 H Calcium 8.2 L Magnesium Total Bilirubin AST 39 H Troponin I High Sens 128.8 H* Total Protein 6.1 L Albumin 2.9 L HDL Cholesterol 28 L Urine Opiates Screen Ur Amphetamines Screen U Benzodiazepines Scrn U Marijuana (THC) Screen Assessment and Plan (1) Acute and chronic respiratory failure with hypoxia: Status: Acute (2) ILD (interstitial lung disease): Status: Acute (3) Community acquired pneumonia: Qualifiers: Laterality: unspecified laterality Qualified Code(s): J18.9 - Pneumonia, unspecified organism Status: Acute Plan Continue Solu-Medrol IV for today and then switch over to p.o. by tomorrow if feeling better Continue doxycycline IV hydration as tolerated Blood work Disposition: Will treat with IV medications and IV fluids for another day hopefully she can be discharged tomorrow in the evening when the heat advisory is resolved specially since she is very sensitive lungs in the air quality will be very poor. Procedures Date of Service Date of Service: 06/11/24
[2024-06-11] MEDS: Potassium Chloride ER 20 MEQ TAB.ER.PRT 40 MEQ PO (09:19)
[2024-06-11] MEDS: Aspirin Enteric Coated 81 MG TABLET.DR PO (09:20)
[2024-06-11] MEDS: 0.9 % Sodium Chloride Flush 3 ML SYRINGE IVFLUSH ×2 (09:20→15:18)
[2024-06-11] MEDS: Heparin Sodium,Porcine 5,000 UNIT/ML VIAL 5000 UNIT SUBCUT ×2 (09:20→20:27)
[2024-06-11] MEDS: Pantoprazole Sodium 40 MG/10 ML VIAL IVPUSH (09:22)
--- NOTE | 2024-06-11 10:30 | PM.CNCAR ---
History of Present Illness History of Present Illness Date of Service: 06/11/24 Requesting physician: Felecia Luis Chief complaint: Acute exacerbation COPD, MOISES Narrative: I was consulted to see Amna in cardiology consultation today for elevated troponins. Patient is 64-year-old female with chronic hypoxemic respiratory failure related to interstitial lung disease related to pulmonary fibrosis came to the hospital with progressive shortness of breath. Yesterday she developed acute lightheadedness associated with her throat closing and then subsequently having severe chest tightness. She came to the hospital was noted to have possible left-sided pneumonia with acute kidney injury. Her troponins were elevated but mostly flat. They are higher than normal. EKG shows sinus rhythm with diffuse ST T wave changes which are unchanged from before. She has prior history of RV enlargement and systolic dysfunction most likely related to her chronic pulmonary parenchymal disease and hypoxemic respiratory failure. She has never had prior documented coronary artery disease. She has never been worked up for the same. She does have prior history of hypertension although more recently she says a blood pressures been more on the lower side at home on losartan as well as Lasix and also hydrochlorothiazide therapy. She also has history of diastolic heart failure from before. She denies any history of diabetes hyperlipidemia or vascular disease. She has no strong family history for premature coronary artery disease. Currently does not smoke. Review of Systems Constitutional: Constitutional: Reports no additional constitutional complaints Eyes: Eyes: Reports no additional eye complaints Cardiovascular: Cardiovascular: Reports chest pain at rest, Denies rapid heart rate, Denies leg edema, Reports lightheadedness, Denies Loss of Consciousness, Denies palpitations, Reports dyspnea and Reports dyspnea on exertion Respiratory: Respiratory: Reports cough, Reports excessive phlegm production, Reports dyspnea and Reports dyspnea on exertion Genitourinary: Genitourinary: Reports no additional female genitourinary complaints Musculoskeletal: Musculoskeletal: Reports no additional musculoskeletal complaints Integumentary/Breasts: Skin/Breast: Reports system reviewed and no additional complaints, except as docu Neurologic: Reports system reviewed and no additional complaints, except as documented Endocrine: Endocrine: Reports no additional endocrine complaints and Denies palpitations Allergic/Immunologic: Allergic/Immunologic: Reports no additional allergic/immunologic complaints PMFSH Past Medical History Medical History ILD (interstitial lung disease) Osteomyelitis Lymphadenopathy, mediastinal Respiratory failure Chest pain Congestive heart failure (CHF) 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 Surgical History Surgical History History of transmetatarsal amputation of right foot History of colonoscopy Social History Social History Household Members: Other Household Members Other:: Dog Housing: Condominium Do you presently have visiting nurse or other home services: No Alcohol intake: never Patient Tobacco Use Status: Former Tobacco user Tobacco use type: Cigarette Cigarettes Per Day: 1 Years Smoked: 30 Smoked in Last 30 Days: Yes e-Cigarette/Vaping Use: Never Used Second Hand Smoke Exposure: No Substance Use Type: Marijuana Have you been hit, kicked, punched, or otherwise hurt by someone within the past year? If so, by whom?: No Do you feel safe in your current relationship?: No Current Relationship Is there a partner from a previous relationship who is making you feel unsafe now?: No Are you made to feel afraid or neglected: No Advance Directives: No Advance Directives Information Provided: No Advance Directives Date on File: 08/05/21 Do you have a plan to hurt others: No Plan Recently lost weight without trying: Yes How much weight loss: 2-13 pounds Eating poorly because of decreased appetite: Yes Nutrition screen score: 4 Nutrition Risks: No Nutritional Risk Patient : No : No Poor oral hygiene: No service: No Current occupational status: disabled Cognitive needs: No Hearing needs: No Vision needs: No Meds Allergies Allergy/AdvReac Type Severity Reaction Status Date / Time No Known Allergies Allergy Verified 06/10/24 21:37 Active Medications: Current Medications Acetaminophen (Acetaminophen 325 Mg Tablet) 975 mg PO Q6H PRN PRN Reason: Pain, Mild (Pain Scale 1-3), fever or headache Albuterol Sulfate (Albuterol Sulfate (0.083%) 2.5 Mg/3 Ml Vial.Neb) 2.5 mg INHALE Q2H PRN PRN Reason: Shortness of Breath/Wheezing Albuterol/Ipratropium (Albuterol/Iprat 2.5/0.5mg 3 Ml Ampul.Neb) 3 ml INHALE RQ4H WHILE AWAKE [facility] Last Admin: 06/11/24 07:15 Dose: Not Given Alprazolam (Alprazolam 0.25 Mg Tablet) 0.25 mg PO Q8H PRN PRN Reason: anxiety Aspirin (Aspirin Enteric Coated 81 Mg Tablet.Dr) 81 mg PO DAILY [facility] Last Admin: 06/11/24 09:20 Dose: 81 mg Heparin Sodium (Porcine) (Heparin Sodium,Porcine 5,000 Unit/Ml Vial) 5,000 unit SUBCUT Q12H [facility] Last Admin: 06/11/24 09:20 Dose: 5,000 unit Sodium Chloride (Ns) 1,000 mls @ 80 mls/hr IVCONT .[id number] [facility] Last Admin: 06/11/24 01:06 Dose: 80 mls/hr Doxycycline Hyclate 100 mg/ (Sodium Chloride) 250 mls @ 166.67 mls/hr IV Q12H [facility] Last Infusion: 06/11/24 04:16 Dose: Infused Melatonin (Melatonin 3 Mg Tablet) 6 mg PO BEDTIME PRN PRN Reason: Insomnia Methylprednisolone Sodium Succinate (Methylprednisolone Sod Succ 40 Mg/Ml Vial) 40 mg IVPUSH BID [facility] Nitroglycerin (Nitroglycerin 0.4 Mg Tab.Subl) 0.4 mg SUBLINGUAL Q5MX3 PRN PRN Reason: Chest Pain Oxycodone HCl (Oxycodone Hcl Immed Release 5 Mg Tablet) 5 mg PO Q6H PRN PRN Reason: Pain, Severe (Pain Scale 7-10) Pantoprazole Sodium (Pantoprazole Sodium 40 Mg/10 Ml Vial) 40 mg IVPUSH DAILY [facility] Last Admin: 06/11/24 09:22 Dose: 40 mg Sodium Chloride (0.9 % Sodium Chloride Flush 3 Ml Syringe) 3 ml IVFLUSH QSHIFT [facility] Last Admin: 06/11/24 09:20 Dose: 3 ml Home Medications ?Medication ?Instructions ?Recorded ?Confirmed ?Last Taken ?Type alprazolam 2 mg tablet 2 mg PO TID PRN Anxiety 03/08/23 04/24/24 Unknown History dextroamphetamine-amphetamine 30 1 tab PO TID 06/11/24 Unknown History mg tablet Physical Exam Vital Signs: Vital Signs: Last Vital Signs Temp 97.8 F 06/11/24 08:00 Pulse 83 06/11/24 08:00 Resp 19 06/11/24 08:00 BP 99/62 06/11/24 08:00 Pulse Ox 95 06/11/24 08:00 O2 Del Method Nasal Cannula 06/11/24 08:00 O2 Flow Rate 3 06/11/24 08:00 Oxygen Flow Rate 4 06/10/24 21:37 BMI result Body Mass Index 24.1 Const: General: cooperative, comfortable, no acute distress, alert, awake and Physically active Nutritional Appearance: thin Orientation/consciousness: patient oriented x3 Limitations: no limitations HEENT: Head: Yes normocephalic and Yes atraumatic Neck: Neck: Yes trachea midline, Yes supple and Yes no JVD Chest: Chest palpation & inspection: normal inspection of the chest Resp: Effort & Inspection: normal respiratory effort Auscultation: crackles (coarse) bilateral 2/[address] up Cardio: Jugular venous distension: no JVD Rate: regular rate Rhythm: regular rhythm Heart sounds: S1 normal heart sound present, S2 normal heart sound present, no click, no gallops, no murmurs and no rubs GI: Auscultation: normal bowel sounds Skin: General skin exam: no rashes or lesions noted Neuro: General: patient oriented x3 and no focal motor deficits Extrem: General: Yes no clubbing, cyanosis or edema Psych: Appearance: grossly normal Objective Labs and Meds 06/11/24 07:26 06/11/24 07:26 Lab results: Laboratory Results - last 24 hr 06/10/24 06/11/24 06/11/24 22:05 00:30 02:39 WBC 12.3 H RBC 3.84 L Hgb 11.1 L Hct 33.1 L MCV 86.2 MCH 28.9 MCHC 33.5 RDW 14.3 Plt Count 353 MPV 10.2 Immature Gran % (Auto) 0.6 H Neut % (Auto) 78.5 H Lymph % (Auto) 14.2 L [facility] % (Auto) 5.8 Eos % (Auto) 0.3 Baso % (Auto) 0.6 Lymph # (Auto) 1.8 [facility] # (Auto) 0.7 Eos # (Auto) 0.0 Baso # (Auto) 0.1 Abs Immat Gran (auto) 0.07 H Absolute Neuts (auto) 9.7 H Absolute Nucleated RBC 0.000 Nucleated RBC % (auto) 0.0 Smear Tech's Comments Sodium 126 L Potassium 3.1 L Chloride 81 L Carbon Dioxide 28 Anion Gap 20 BUN 19 H Creatinine 1.73 H Estim Creat Clear Calc 25.2 Estimated GFR 30 Random Glucose 120 H Estimat Average Glucose Hemoglobin A1c % Calcium 8.7 Magnesium 1.4 L* Total Bilirubin 1.1 H AST 43 H ALT 21 Alkaline Phosphatase 95 Total Creatine Kinase 76 Troponin I High Sens 152.5 H* D 133.2 H* Total Protein 6.6 Albumin 3.2 L Triglycerides Cholesterol LDL Cholesterol, Calc HDL Cholesterol TSH 1.73 Urine Opiates Screen POSITIVE H Ur Buprenorphine Scrn Not Detected Ur Oxycodone Screen Not Detected Urine Methadone Screen Not Detected Urine Fentanyl Screen Not Detected Ur Barbiturates Screen Not Detected Ur Phencyclidine Scrn Not Detected Ur Amphetamines Screen POSITIVE H U Benzodiazepines Scrn POSITIVE H Urine Cocaine Screen Not Detected U Marijuana (THC) Screen POSITIVE H 06/11/24 07:26 WBC 6.4 RBC 3.71 L Hgb 11.0 L Hct 31.2 L MCV 84.1 MCH 29.6 MCHC 35.3 H RDW 14.2 Plt Count 303 MPV 10.7 Immature Gran % (Auto) 0.6 H Neut % (Auto) 90.7 H Lymph % (Auto) 7.9 L [facility] % (Auto) 0.6 L Eos % (Auto) 0.0 Baso % (Auto) 0.2 Lymph # (Auto) 0.5 L [facility] # (Auto) 0.0 L Eos # (Auto) 0.0 Baso # (Auto) 0.0 Abs Immat Gran (auto) 0.04 H Absolute Neuts (auto) 5.8 Absolute Nucleated RBC 0.000 Nucleated RBC % (auto) 0.0 Smear Tech's Comments VERIFIED Sodium 127 L Potassium 3.1 L Chloride 89 L Carbon Dioxide 26 Anion Gap 15 BUN 18 H Creatinine 1.23 Estim Creat Clear Calc 35.6 Estimated GFR 44 Random Glucose 169 H Estimat Average Glucose 117 Hemoglobin A1c % 5.7 Calcium 8.2 L Magnesium 2.4 Total Bilirubin 0.6 AST 39 H ALT 24 Alkaline Phosphatase 86 Total Creatine Kinase Troponin I High Sens 128.8 H* Total Protein 6.1 L Albumin 2.9 L Triglycerides 57 Cholesterol 98 LDL Cholesterol, Calc 59 HDL Cholesterol 28 L TSH Urine Opiates Screen Ur Buprenorphine Scrn Ur Oxycodone Screen Urine Methadone Screen Urine Fentanyl Screen Ur Barbiturates Screen Ur Phencyclidine Scrn Ur Amphetamines Screen U Benzodiazepines Scrn Urine Cocaine Screen U Marijuana (THC) Screen Imaging Radiologist's impression: Impressions Chest X-Ray 06/11/24 00:25 IMPRESSION: Diffuse interstitial fibrotic changes. Question of superimposed infiltrate left lung base. Assessment and Plan (1) Elevated troponin: Status: Acute Elevated troponin in this middle-aged woman, more elevated and baseline most likely due to acute kidney injury with mostly flat. This is however suggestive of myocardial stress although it could be RV strain from hypoxemic respiratory failure given her prior findings suggestive of chronic cor pulmonale. Obstructive coronary artery disease can not be entirely ruled out given her symptoms. EKG changes also could represent acute RV strain. At this point time I would start on low-dose metoprolol 12.5 mg q.6 hours. Hold off on losartan as well as hydrochlorothiazide therapy. Clinically appears to be euvolemic. Hold off on diuretic therapy. Agree with aspirin high-intensity statin therapy. I do not think there is a need for full parenteral anticoagulation at this point time. She require ischemic workup once her pulmonary status has improved and will probably schedule her for cardiac catheterization electively as an outpatient. This was discussed with her. If she develops acute ischemic symptoms again with significant bump in her troponin may require further inpatient workup. This was discussed with her in the hospitalist team. Will follow if need be Procedures Date of Service Date of Service: 06/11/24
[2024-06-11] MEDS: methylPREDNISolone Sod Succ 40 MG/ML VIAL IVPUSH ×2 (11:05→20:28)
--- NOTE | 2024-06-11 11:58 | PHA.MEDREC ---
Pharmacy Consult ? Medication Reconciliation Pharmacy has completed the medication reconciliation.Sple to patient at bedside, she had a medication list and confirmed that they no longer take Dextroamphetamine-amphetamine, methylcellulose, or Vitamin A. Did state that they were taking docusate and confirmed that their Alprazolam dose is 1/4 tab of the 2mg she fills, so dose of 0.5mg is correct.
--- NOTE | 2024-06-11 13:35 | PM.EVENT ---
Event Note Date of Service: 06/11/24 Event Note: 64 year old women admitted with Pneumonia [place] Pulse oximetry. Supplemental oxygen to keep O2 sats > 90%. Bronchodilator therapy every 4 hours and every 2 hours as needed. Continue IV steroids. doxycycline and rocephin Pulmonology consult. Acute kidney injury, ATN Likely secondary to poor p.o. intake, diuretic use and losartan. Hold hydrochlorothiazide and losartan. Hydration. Continue to monitor renal function. Avoid nephrotoxic agents. Acute hyponatremia. Likely secondary to poor p.o. intake, use of diuretics and losartan. Hydration. Continue to monitor Na level q6h. Avoid over-correction. Check TSH. Nephrology consult. Hypokalemia. Likely secondary to hydrochlorothiazide. Replete as needed. Hold hydrochlorothiazide. Check magnesium. Continue to monitor K level. Chest pain + elevated troponin. ECG ischemic changes (similar to prior). Start tx with aspirin and Lovenox. Trend troponin. Cardiology consult.>start low dose BB. add statin. likely o/p cath when pulm issues are better HFpEF. Not decompensated. Essential hypertension. Losartan on hold due to MOISES. Chronic pain. Morphine and oxycodone as needed. Anxiety. continue low-dose Xanax as needed. Neuropathy. Gabapentin on hold due to MOISES. Code status: Full DVT prophylaxis: Andria Stevenson. Attending Dr. Dutton Patient will need hospitalization for at least 2 midnights for multiple acute issues treatment including acute exacerbation of interstitial lung disease, MOISES, chest pain and multiple electrolyte imbalances with continuous cardiac monitoring and vital signs as well as supplemental oxygen, bronchodilator therapy IV fluids and IV hydration. She will also need evaluation by multiple subspecialties. Time Spent With Patient Time: Total time managing care of this patient today ____ minutes.
[2024-06-11] MEDS: cefTRIAXone sodium 1 GM in 0.9 % Sodium Chloride 50 ML IV (14:10)
--- NOTE | 2024-06-11 14:19 | MHC.CM.PN ---
IMM 06/11/24, pt lives alone, she has [employer] services from [facility] 8.5 hours a week. DME: home O2, walker, cane HCP: Araceli Payton, her daughter Transport home at DC: Pt. can arrange a ride No VNA services and she has not been to [facility] PCP: Dr. Mae CM to follow and assist with DC planning.
--- NOTE | 2024-06-11 19:44 | PM.CNNEP ---
History of Present Illness Reason for Consult Consult date: 06/11/24 Reason for consult: MOISES Chief Complaint Chief complaint: Acute exacerbation COPD, MOISES History of Present Illness Narrative: Amna Mcfadden is a very pleasant 64 years old woman with idiopathic pulmonary fibrosis on home oxygen -2L/min prednisone daily, , essential hypertension (on losartan and hydrochlorothiazide) and diastolic congestive heart failure presents to the emergency department complaining of worsening shortness of breath associated, wheezing, cough with chest tightness. she has been feeling very nauseous and has not been drinking too much fluids. She was recently seen in the emergency department for chest pain and was found to have hyponatremia and elevation of troponin. She did not report any headache, fever or chills. She did not report any acute abdominal pain, diarrhea or any urinary changes. She denied tobacco smoking, alcohol abuse or illicit drug use. Sometimes she consumes marijuana edibles. In the ER, she was found to have low-grade tachycardia and tachypnea. Last blood pressure is 104/68. Oxygen saturation is normal on 2 liters/minute via nasal cannula which is her baseline. There is no fever. Blood workup was remarkable for hyponatremia 126, potassium is 3.1 and there is leukocytosis of 12.3. Serum osmolality is 258. LFTs are essentially unremarkable except for slight elevation of bilirubin and AST. Alk-phos and ALT are normal. Troponin is 152.5 --> 133.2. CXR showed diffuse interstitial fibrotic changes, question of superimposed infiltrate left lower lobe. ECG showed sinus tachycardia, heart rate 122 bpm, ST depressions anterior and inferolateral leads. Echo 04/2024 - EF 70%, grade 1 diastolic dysfunction. No significant valve changes.She was admitted for further management. Nephrology was consulted to assist in her clinical care during her current hospital stay Review of Systems Review of Systems Yes all other systems are reviewed and are negative [facility] Past Medical History Medical History ILD (interstitial lung disease) Osteomyelitis Lymphadenopathy, mediastinal Respiratory failure Chest pain Congestive heart failure (CHF) Chronic pain syndrome halfway (current) use of opiate analgesic Complex regional pain syndrome of right lower extremity Scoliosis Chronic idiopathic constipation IBS (irritable bowel syndrome) ADHD Anxiety Depression Constipation 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 Surgical History Surgical History History of transmetatarsal amputation of right foot History of colonoscopy Social History Social History Household Members: Other Household Members Other:: Dog Housing: Condominium Do you presently have visiting nurse or other home services: No Alcohol intake: never Patient Tobacco Use Status: Former Tobacco user Tobacco use type: Cigarette Cigarettes Per Day: 1 Years Smoked: 30 Smoked in Last 30 Days: Yes e-Cigarette/Vaping Use: Never Used Second Hand Smoke Exposure: No Substance Use Type: Marijuana Currently Displaying Signs/Symptoms of Drug Intoxication Withdrawal: No Have you been hit, kicked, punched, or otherwise hurt by someone within the past year? If so, by whom?: No Do you feel safe in your current relationship?: No Current Relationship Is there a partner from a previous relationship who is making you feel unsafe now?: No Are you made to feel afraid or neglected: No Advance Directives: No Advance Directives Information Provided: No Advance Directives Date on File: 08/05/21 Do you have a plan to hurt others: No Plan Recently lost weight without trying: Yes How much weight loss: 2-13 pounds Eating poorly because of decreased appetite: Yes Nutrition screen score: 4 Nutrition Risks: No Nutritional Risk Patient : No : No Poor oral hygiene: No service: No Current occupational status: disabled Cognitive needs: No Hearing needs: No Vision needs: No Meds Allergies Allergy/AdvReac Type Severity Reaction Status Date / Time No Known Allergies Allergy Verified 06/10/24 21:37 Active Medications: Current Medications Acetaminophen (Acetaminophen 325 Mg Tablet) 975 mg PO Q6H PRN PRN Reason: Pain, Mild (Pain Scale 1-3), fever or headache Albuterol Sulfate (Albuterol Sulfate (0.083%) 2.5 Mg/3 Ml Vial.Neb) 2.5 mg INHALE Q2H PRN PRN Reason: Shortness of Breath/Wheezing Albuterol/Ipratropium (Albuterol/Iprat 2.5/0.5mg 3 Ml Ampul.Neb) 3 ml INHALE RQ4H WHILE AWAKE [facility] Last Admin: 06/11/24 19:42 Dose: 3 ml Alprazolam (Alprazolam 0.25 Mg Tablet) 0.25 mg PO Q8H PRN PRN Reason: anxiety Alprazolam (Alprazolam 0.5 Mg Tablet) 0.5 mg PO TID PRN PRN Reason: Anxiety Aspirin (Aspirin Enteric Coated 81 Mg Tablet.Dr) 81 mg PO DAILY [facility] Last Admin: 06/11/24 09:20 Dose: 81 mg Atorvastatin Calcium (Atorvastatin Calcium 40 Mg Tablet) 40 mg PO BEDTIME [facility] Docusate Sodium (Docusate Sodium 100 Mg Capsule) 100 mg PO BEDTIME [facility] Folic Acid (Folic Acid 1 Mg Tablet) 1 mg PO DAILY [facility] Heparin Sodium (Porcine) (Heparin Sodium,Porcine 5,000 Unit/Ml Vial) 5,000 unit SUBCUT Q12H [facility] Last Admin: 06/11/24 09:20 Dose: 5,000 unit Sodium Chloride (Ns) 1,000 mls @ 80 mls/hr IVCONT .[id number] [facility] Last Admin: 06/11/24 12:22 Dose: 80 mls/hr Doxycycline Hyclate 100 mg/ (Sodium Chloride) 250 mls @ 166.67 mls/hr IV Q12H [facility] Last Infusion: 06/11/24 16:50 Dose: Infused Ceftriaxone Sodium 1 gm/ (Sodium Chloride) 50 mls @ 100 mls/hr IV Q24H [facility] Last Infusion: 06/11/24 15:22 Dose: Infused Melatonin (Melatonin 3 Mg Tablet) 6 mg PO BEDTIME PRN PRN Reason: Insomnia Methylprednisolone Sodium Succinate (Methylprednisolone Sod Succ 40 Mg/Ml Vial) 40 mg IVPUSH BID [facility] Last Admin: 06/11/24 11:05 Dose: 40 mg Metoprolol Tartrate (Metoprolol Tartrate 12.5 Mg Halftab) 12.5 mg PO BID [facility]; Protocol Morphine Sulfate (Morphine Sulfate Immed Release 15 Mg Tablet) 15 mg PO Q6H PRN PRN Reason: pain, severe Nitroglycerin (Nitroglycerin 0.4 Mg Tab.Subl) 0.4 mg SUBLINGUAL Q5MX3 PRN PRN Reason: Chest Pain Oxycodone HCl (Oxycodone Hcl Immed Release 5 Mg Tablet) 5 mg PO Q6H PRN PRN Reason: Pain, Severe (Pain Scale 7-10) Pantoprazole Sodium (Pantoprazole Sodium 40 Mg/10 Ml Vial) 40 mg IVPUSH DAILY [facility] Last Admin: 06/11/24 09:22 Dose: 40 mg Polyethylene Glycol (Polyethylene Glycol 3350 17 Gm Powd.Pack) 17 gm PO DAILY PRN PRN Reason: Constipation Sodium Chloride (0.9 % Sodium Chloride Flush 3 Ml Syringe) 3 ml IVFLUSH QSHIFT [facility] Last Admin: 06/11/24 15:18 Dose: 3 ml Vitamin D (Cholecalciferol (Vitamin D3) 25 Mcg Tablet) 50 mcg PO DAILY [facility] Home Medications ?Medication ?Instructions ?Recorded ?Confirmed ?Last Taken ?Type alprazolam 2 mg tablet 0.5 mg PO TID PRN Anxiety 03/08/23 06/11/24 06/10/24 History docusate sodium 100 mg capsule 100 mg PO BEDTIME 06/11/24 06/11/24 06/10/24 History Physical Exam Vital Signs: Last Vital Signs Temp 97.5 F 06/11/24 15:48 Pulse 86 06/11/24 19:42 Resp 16 06/11/24 19:42 BP 92/66 06/11/24 15:48 Pulse Ox 92 06/11/24 15:48 O2 Del Method Nasal Cannula 06/11/24 15:48 O2 Flow Rate 2 06/11/24 15:48 Oxygen Flow Rate 4 06/10/24 21:37 BMI result Body Mass Index 24.1 Const General: no acute distress Eyes EOM: EOMs intact bilaterally Resp Auscultation: diminished lung sounds Cardio Rate: regular rate GI Palpation (GI): Soft to palpation Neuro General: moves all extremities Results Lab Results 06/11/24 07:26 06/11/24 07:26 Lab results: Chemistry 06/10/24 06/11/24 22:05 07:26 Sodium 126 L 127 L Potassium 3.1 L 3.1 L Carbon Dioxide 28 26 BUN 19 H 18 H Creatinine 1.73 H 1.23 Calcium 8.7 8.2 L Hematology 06/10/24 06/11/24 22:05 07:26 WBC 12.3 H 6.4 Hgb 11.1 L 11.0 L Plt Count [id number] Assessment and Plan (1) MOISES (acute kidney injury): Status: Acute (2) Acute hyponatremia: Status: Acute Plan MOISES due to compromise in renal perfusion No reason to suspect GN/AIN; UO OK Has excess ADH at baseline Needs free water restriction C/W rest of current management Labs AM; Shall closely F/U Procedures Date of Service Date of Service: 06/11/24
[2024-06-11] MEDS: Metoprolol Tartrate 12.5 MG HALFTAB PO (20:27)
[2024-06-11] MEDS: Docusate Sodium 100 MG CAPSULE PO (20:27)
[2024-06-12] VITALS (9 sets, daily range): BP systolic 106–115; BP diastolic 67–81; PULSE 58–83; RESP 16–20; TEMP 36.1–36.4; O2SAT 94–99
--- NOTE | 2024-06-12 | ECG_ITS ---
Test Reason : Bradycardia Blood Pressure : / mmHG Vent. Rate : 076 BPM Atrial Rate : 076 BPM P-R Int : 182 ms QRS Dur : 080 ms QT Int : 438 ms P-R-T Axes : 053 118 -35 degrees QTc Int : 492 ms Normal sinus rhythm Possible Left atrial enlargement Right axis deviation Right ventricular hypertrophy with repolarization abnormality T wave abnormality, consider inferior ischemia Prolonged QT Abnormal ECG When compared with ECG of 10-JUN-2024 21:52, Vent. rate has decreased BY 46 BPM Referred By: Felecia Luis Electronically Signed By:ALAN EDWARDS MD
[2024-06-12] MEDS: Doxycycline Hyclate 100 MG in 0.9 % Sodium Chloride 250 ML 166.6 MG IV (01:46)
[2024-06-12] MEDS: Albuterol/Iprat 2.5/0.5MG 3 ML AMPUL.NEB INHALE ×3 (07:17→19:38)
[2024-06-12] MEDS: 0.9 % Sodium Chloride 1,000 ML 80 ML IVCONT (07:20)
[2024-06-12 07:28] LABS: Anion Gap 12 (12-20); Blood Urea Nitrogen 17 mg/dL (9-16); Calcium 8.2 mg/dL (8.4-10.2); Carbon Dioxide 28 mmol/L (22-29); Chloride 96 mmol/L (96-108); Creatinine Clr Calc Pharmacy 51.5; Estimated Glomerular Filt Rate > 60; Glucose Random 133 mg/dL (60-115); Potassium 3.9 mmol/L (3.3-5.1); Sodium 132 mmol/L (135-145)
[2024-06-12] MEDS: Cholecalciferol (Vitamin D3) 25 MCG TABLET 50 MCG PO (08:39)
[2024-06-12] MEDS: methylPREDNISolone Sod Succ 40 MG/ML VIAL IVPUSH ×2 (08:39→21:27)
[2024-06-12] MEDS: Aspirin Enteric Coated 81 MG TABLET.DR PO (08:40)
[2024-06-12] MEDS: 0.9 % Sodium Chloride Flush 3 ML SYRINGE IVFLUSH ×2 (08:40→16:12)
[2024-06-12] MEDS: Folic Acid 1 MG TABLET PO (08:40)
[2024-06-12] MEDS: Heparin Sodium,Porcine 5,000 UNIT/ML VIAL 5000 UNIT SUBCUT ×2 (08:40→21:27)
[2024-06-12] MEDS: Pantoprazole Sodium 40 MG/10 ML VIAL IVPUSH (08:41)
--- NOTE | 2024-06-12 09:37 | P.PNIM_ITS ---
Subjective Subjective Date of Service: 06/12/24 Review of Systems Follow up resp failure, hx of ILD now bradycardia, likely from BB Physical Exam 2 Vital Signs: Vital Signs: Last Vital Signs Temp 97.1 F 06/12/24 07:44 Pulse 61 06/12/24 07:44 Resp 18 06/12/24 07:44 BP 106/67 06/12/24 07:44 Pulse Ox 95 06/12/24 07:44 O2 Del Method Nasal Cannula 06/12/24 07:44 O2 Flow Rate 2 06/12/24 07:44 Oxygen Flow Rate 4 06/10/24 21:37 BMI result Body Mass Index 24.1 Appearing in no acute distress lung sounds diminished heart regular rate rhythm, clear S1, S2 positive bowel sounds, abdomen is soft, nontender neuro patient is alert x3, no focal deficits Objective Data Active Medications Acetaminophen (Acetaminophen 325 Mg Tablet) 975 mg PO Q6H PRN PRN Reason: Pain, Mild (Pain Scale 1-3), fever or headache Albuterol Sulfate (Albuterol Sulfate (0.083%) 2.5 Mg/3 Ml Vial.Neb) 2.5 mg INHALE Q2H PRN PRN Reason: Shortness of Breath/Wheezing Albuterol/Ipratropium (Albuterol/Iprat 2.5/0.5mg 3 Ml Ampul.Neb) 3 ml INHALE RQ4H WHILE AWAKE [facility] Last Admin: 06/12/24 07:17 Dose: 3 ml Documented By: MICHAEL Alprazolam (Alprazolam 0.25 Mg Tablet) 0.25 mg PO Q8H PRN PRN Reason: anxiety Alprazolam (Alprazolam 0.5 Mg Tablet) 0.5 mg PO TID PRN PRN Reason: Anxiety Aspirin (Aspirin Enteric Coated 81 Mg Tablet.) 81 mg PO DAILY [facility] Last Admin: 06/12/24 08:40 Dose: 81 mg Documented By: ADELITA Atorvastatin Calcium (Atorvastatin Calcium 40 Mg Tablet) 40 mg PO BEDTIME [facility] Last Admin: 06/11/24 20:28 Dose: Not Given Documented By: SAV Non-Admin Reason: Patient Refused Docusate Sodium (Docusate Sodium 100 Mg Capsule) 100 mg PO BEDTIME [facility] Last Admin: 06/11/24 20:27 Dose: 100 mg Documented By: SAV Folic Acid (Folic Acid 1 Mg Tablet) 1 mg PO DAILY [facility] Last Admin: 06/12/24 08:40 Dose: 1 mg Documented By: ADELITA Heparin Sodium (Porcine) (Heparin Sodium,Porcine 5,000 Unit/Ml Vial) 5,000 unit SUBCUT Q12H [facility] Last Admin: 06/12/24 08:40 Dose: 5,000 unit Documented By: ADELITA Sodium Chloride (Ns) 1,000 mls @ 80 mls/hr IVCONT .[id number] [facility] Last Admin: 06/12/24 07:20 Dose: 80 mls/hr Documented By: ADELITA Doxycycline Hyclate 100 mg/ (Sodium Chloride) 250 mls @ 166.67 mls/hr IV Q12H [facility] Last Infusion: 06/12/24 07:20 Dose: Infused Documented By: ADELITA Ceftriaxone Sodium 1 gm/ (Sodium Chloride) 50 mls @ 100 mls/hr IV Q24H [facility] Last Infusion: 06/11/24 15:22 Dose: Infused Documented By: ADELITA Melatonin (Melatonin 3 Mg Tablet) 6 mg PO BEDTIME PRN PRN Reason: Insomnia Methylprednisolone Sodium Succinate (Methylprednisolone Sod Succ 40 Mg/Ml Vial) 40 mg IVPUSH BID [facility] Last Admin: 06/12/24 08:39 Dose: 40 mg Documented By: ADELITA Metoprolol Tartrate (Metoprolol Tartrate 12.5 Mg Halftab) 12.5 mg PO BID [facility]; Protocol Last Admin: 06/11/24 20:27 Dose: 12.5 mg Documented By: SAV Morphine Sulfate (Morphine Sulfate Immed Release 15 Mg Tablet) 15 mg PO Q6H PRN PRN Reason: pain, severe Nitroglycerin (Nitroglycerin 0.4 Mg Tab.Subl) 0.4 mg SUBLINGUAL Q5MX3 PRN PRN Reason: Chest Pain Oxycodone HCl (Oxycodone Hcl Immed Release 5 Mg Tablet) 5 mg PO Q6H PRN PRN Reason: Pain, Severe (Pain Scale 7-10) Pantoprazole Sodium (Pantoprazole Sodium 40 Mg/10 Ml Vial) 40 mg IVPUSH DAILY [facility] Last Admin: 06/12/24 08:41 Dose: 40 mg Documented By: ADELITA Polyethylene Glycol (Polyethylene Glycol 3350 17 Gm Powd.Pack) 17 gm PO DAILY PRN PRN Reason: Constipation Sodium Chloride (0.9 % Sodium Chloride Flush 3 Ml Syringe) 3 ml IVFLUSH QSHIFT [facility] Last Admin: 06/12/24 08:40 Dose: 3 ml Documented By: ADELITA Vitamin D (Cholecalciferol (Vitamin D3) 25 Mcg Tablet) 50 mcg PO DAILY [facility] Last Admin: 06/12/24 08:39 Dose: 50 mcg Documented By: ADELITA Labs 06/11/24 07:26 06/12/24 05:56 Labs: Laboratory Results - last 24 hr 06/12/24 05:56 Anion Gap 12 Estim Creat Clear Calc 51.5 Estimated GFR > 60 Random Glucose 133 H Calcium 8.2 L Assessment and Plan (1) Respiratory failure: Status: Acute Plan 64 year old women admitted with Pneumonia, MOISES and abnormal electrolytes Asymptomatic bradycardia overnight and this morning no HB on EKG likely secondary to metoprolol started last night BB stopped , discusses with cardiology monitor tele Pneumonia Supplemental oxygen to keep O2 sats > 90%. IV steroid switched to po, taper for o/p . doxycycline and rocephin Pulmonology following> no ILD exacerbation more, more likely infectious illness Acute kidney injury, ATN, poor renal perfusion. Resolved Likely secondary to poor p.o. intake, diuretic use and losartan. stop hydrochlorothiazide s/p Hydration. Continue to monitor renal function. Avoid nephrotoxic agents. Acute hyponatremia. Likely secondary to poor p.o. intake, use of diuretics and losartan. s/p Hydration. normal TSH. Nephrology consult>has excess ADH at baseline , avoid HCTZ fluid rest 1.5L Hypokalemia. Likely secondary to hydrochlorothiazide. Replete as needed. mag 2.4 Continue to monitor K level. Chest pain + elevated troponin. ECG ischemic changes (similar to prior). Start tx with aspirin and Lovenox. Trend troponin. Cardiology consult.>start low dose BB. add statin. likely o/p cath when pulm issues are better BB stopped due to overnight bradycardia HFpEF. Not decompensated. Essential hypertension. Losartan on hold due to MOISES. BP has been low normal, consider stopping losartan on dc Chronic pain. Morphine and oxycodone as needed. Anxiety. continue low-dose Xanax as needed. Neuropathy. Gabapentin on hold due to MOISES, can resume .on dc Code status: Full DVT prophylaxis: Lovenox, SCDs. Attending Dr. Dutton DISPO PT eval Quality Stroke Does the patient have a stroke diagnosis?: No VTE Prior VTE?: No VTE Risk Level:: Medical - moderate - high VTE Device Contraindication: Treatment Not Indicated VTE Drug Contraindication: N/A - Med Ordered
--- NOTE | 2024-06-12 13:16 | P.PNNP_ITS ---
Subjective Subjective Date of Service: 06/12/24 Interval history: Events noted. All recent data reviewed Physical Exam 2 Vital Signs: Vital Signs: Last Vital Signs Temp 97.6 F 06/12/24 11:30 Pulse 76 06/12/24 11:30 Resp 19 06/12/24 11:30 BP 115/81 06/12/24 11:30 Pulse Ox 95 06/12/24 11:30 O2 Del Method Nasal Cannula 06/12/24 11:30 O2 Flow Rate 3 06/12/24 11:30 Oxygen Flow Rate 4 06/10/24 21:37 BMI result Body Mass Index 24.1 Const: General: no acute distress Orientation/consciousness: patient oriented x3 Eyes: EOM: EOMs intact bilaterally Resp: Auscultation: diminished lung sounds Cardio: Rate: regular rate GI: Palpation (GI): Soft to palpation Neuro: General: patient oriented x3 and moves all extremities Objective Data Labs 06/11/24 07:26 06/12/24 05:56 Labs: Laboratory Results - last 24 hr 06/12/24 05:56 Sodium 132 L Potassium 3.9 D Chloride 96 Carbon Dioxide 28 Anion Gap 12 BUN 17 H Creatinine 0.85 Estim Creat Clear Calc 51.5 Estimated GFR > 60 Random Glucose 133 H Calcium 8.2 L Procedures Date of Service Date of Service: 06/12/24 Assessment & Plan Assessment and plan (1) Acute hyponatremia: Status: Acute Plan MOISES due to compromise in renal perfusion-resolved No reason to suspect GN/AIN; UO OK Has excess ADH at baseline- better Needs free water restriction C/W rest of current management Labs AM; Shall closely F/U Progress Note: Quality Stroke Does the patient have a stroke diagnosis?: No
[2024-06-12] MEDS: cefTRIAXone sodium 1 GM in 0.9 % Sodium Chloride 50 ML IV (15:12)
[2024-06-12] MEDS: Doxycycline Hyclate 100 MG in 0.9 % Sodium Chloride 250 ML 166.67 MG IV (16:10)
--- NOTE | 2024-06-12 16:30 | P.CDIM_ITS ---
PROVIDER RESPONSE TEXT: To clarify, the appropriate diagnosis supported by the clinical indicators: Hypomagnesemia: Resolved QUERY TEXT: PHYSICIAN'S DOCUMENTATION REQUEST Date of Query: 06/12/2024 08:04 AM EDT Patient Name: Amna Mcfadden Admit Date: 06/11/2024 Dear Felecia Luis, A review of the medical record indicates additional documentation may be needed. Please review below and update the documentation accordingly. Clinical Indicators: LABS: magnesium 1.4 L 2.4 IV magnesium sulfate Based on the above labs, is there a diagnosis that correlates with these lab findings: Hypomagnesemia resolved, possible, probable Labs indicate a diagnosis of (please specify) Other (explain) Clinically unable to determine (explain) Thank you, Opal Cosby, CCS, CDIS Use of terms such as suspected, likely, concern for, or probable (associated with a specific diagnosi s that is being evaluated, monitored, or treated as if it exists) are acceptable and can be coded in the inpatient se tting, when documented at the time of discharge. Please use your independent medical judgment in providing your response. THIS QUERY IS PART OF THE PERMANENT MEDICAL RECORD
[2024-06-12] MEDS: Atorvastatin Calcium 40 MG TABLET PO (21:27)
[2024-06-12] MEDS: Docusate Sodium 100 MG CAPSULE PO (21:27)
[2024-06-12] MEDS: Melatonin 3 MG TABLET 6 MG PO (23:05)
[2024-06-13] VITALS: BP 121/69; PULSE 57; RESP 20; TEMP 36.1; O2SAT 94
[2024-06-13] MEDS: Doxycycline Hyclate 100 MG in 0.9 % Sodium Chloride 250 ML 166.6 MG IV (02:02)
[2024-06-13] MEDS: 0.9 % Sodium Chloride Flush 3 ML SYRINGE IVFLUSH ×2 (02:03→09:51)
[2024-06-13 04:00] VITALS: BP 111/65; PULSE 56; RESP 20; TEMP 36.1; O2SAT 96
[2024-06-13 07:16] VITALS: BP 121/80; PULSE 52; RESP 20; TEMP 36.6; O2SAT 96
[2024-06-13 07:22] VITALS: PULSE 52; RESP 20; O2SAT 95
[2024-06-13] MEDS: Albuterol/Iprat 2.5/0.5MG 3 ML AMPUL.NEB INHALE (07:22)
[2024-06-13] MEDS: Folic Acid 1 MG TABLET PO (09:50)
[2024-06-13] MEDS: predniSONE 20 MG TABLET 40 MG PO (09:50)
[2024-06-13] MEDS: Heparin Sodium,Porcine 5,000 UNIT/ML VIAL 5000 UNIT SUBCUT (09:50)
[2024-06-13] MEDS: Aspirin Enteric Coated 81 MG TABLET.DR PO (09:51)
[2024-06-13] MEDS: Cholecalciferol (Vitamin D3) 25 MCG TABLET 50 MCG PO (09:51)
--- NOTE | 2024-06-13 11:05 | P.DS_ITS ---
DS: Providers Provider Date of Service: 06/13/24 Date of admission: 06/11/24 01:46 Primary care physician: GARCIA Mancuso Consults: 06/11/24 01:54 Consult to Cardiology Routine Consulting Provider: [facility] Reason for consultation: Chest pain, elevated troponin Has provider been notified: Yes Consult to Nephrology Routine Consulting Provider: [facility] Reason for consultation: MOISES, hyponatremia Has provider been notified: No Consult to Pulmonology Routine Consulting Provider: [facility] Reason for consultation: Pulmonary fibrosis exacerbation Has provider been notified: No DS: Diagnosis Discharge Diagnosis (1) Respiratory failure: Status: Acute DS: Summary Hospital Course Hospital Course: History of presenting illness: Date of Service: 06/11/24 Attending physician on admission: Taylor Noe Chief Complaint: Shortness of the breath, chest tightness Amna Mcfadden is a very pleasant 64 years old woman with past medical history significant for idiopathic pulmonary fibrosis on home oxygen -2L/min prednisone daily, , essential hypertension (on losartan and hydrochlorothiazide) and diastolic congestive heart failure presents to the emergency department complaining of worsening shortness of breath associated, wheezing, cough with chest tightness. She also stated that she has been feeling very nauseous and has not been drinking too much fluids per provider recommendations as it was thought that she was intoxicated with water. She was recently seen in the emergency department for chest pain and was found to have hyponatremia and elevation of troponin. She did not report any headache, fever or chills. She did not report any acute abdominal pain, diarrhea or any urinary changes. She denied tobacco smoking, alcohol abuse or illicit drug use. Sometimes she consumes marijuana edibles. In the ED today, she was found to have low-grade tachycardia and tachypnea. Last blood pressure is 104/68. Oxygen saturation is normal on 2 liters/minute via nasal cannula which is her baseline. There is no fever. Blood workup was remarkable for hyponatremia 126, potassium is 3.1 and there is leukocytosis of 12.3. Serum osmolality is 258. LFTs are essentially unremarkable except for slight elevation of bilirubin and AST. Alk-phos and ALT are normal. Troponin is 152.5 --> 133.2. CXR showed diffuse interstitial fibrotic changes, question of superimposed infiltrate left lower lobe. ECG showed sinus tachycardia, heart rate 122 bpm, ST depressions anterior and inferolateral leads. Chart review: Echo 04/2024 - EF 70%, grade 1 diastolic dysfunction. No significant valve changes. ED tx: DuoNeb, Solu-Medrol 125 mg IV, NS 1 L bolus, Zofran 4 mg IV Hospital course: 64 year old women with past medical history significant for idiopathic pulmonary fibrosis on 2 L of home oxygen and prednisone, history of hypertension, diastolic congestive heart failure admitted to [facility] due to symptoms of worsening shortness of breath, cough and chest tightness, patient diagnosed to have possible left lower lobe pneumonia, MOISES, acute hypokalemia , acute hyponatremia and elevated troponin , she was treated with IV doxycycline and Rocephin and continued on 2 L of home oxygen with stable oxygenation, evaluated by lead security officer who felt there was no ILD exacerbation, since patient had no fevers, no worsening cough her antibiotic has been transitioned to by mouth Ceftin for total 5 days, her electrolytes were repleted potassium normalized, sodium improved significantly from 127 to 132, renal function normalized, hydrochlorothiazide and losartan was discontinued renal function returned to Normal, likely had ATN with poor renal perfusion, in regard to elevated troponin she was evaluated by Cardiology, they felt elevated troponin are due to right ventricular strain from hypoxic respiratory failure, EKG also showed changes representing acute RV strain, although obstructive coronary disease can not be entirely ruled out, therefore cardiology recommend outpatient cardiac catheterization and beta blockers, high-intensity statin and aspirin, however patient developed bradycardia with beta-zaheer treatment, therefore metoprolol discontinued, patient is being discharged on aspirin, statins and sublingual nitro, cardiology will arrange for outpatient cardiac catheterization patient is recommended to return to [facility] with recurrent episodes of chest pain. In regard to Essential hypertension she was noted to have stable blood pressures off of losartan and hydrochlorothiazide recommend close outpatient follow-up with PCP. In regard to Chronic pain, anxiety neuropathy recommend to continue morphine, oxycodone , Xanax as needed and gabapentin.. Time Attestation Discharge Coordination Time (in mins): 40 Quality: Safe Use of Opioids Does Pt have an Active Cancer Diagnosis on the Problem List?: No Quality: Stroke Does the patient have a stroke diagnosis?: No Physical Exam Vital Signs: Vital Signs: Last Vital Signs Temp 97.8 F 06/13/24 07:16 Pulse 52 06/13/24 07:22 Resp 20 06/13/24 07:22 BP 121/80 06/13/24 07:16 Pulse Ox 96 06/13/24 07:16 O2 Del Method Nasal Cannula 06/13/24 07:16 O2 Flow Rate 2 06/13/24 07:16 Oxygen Flow Rate 4 06/10/24 21:37 BMI result Body Mass Index 24.1 Const: Other: General no acute distress. Neck no JVD. CVS regular rate rhythm, Respiratory lungs bilateral dry crackles Gastrointestinal abdomen soft, non tender, bowel sounds audible, no no guarding , no rigidity. Extremities no edema. Neuro non focal Skin no rash Psych appropriate affect Discharge Plan Discharge Anticipated Discharge Date/Time: 06/13/24 10:40 Patient Disposition: Home, Self-Care Discharge Diagnosis: Pneumonia Hyponatremia Acute hypokalemia Elevated troponin/abnormal EKG Referrals: Maximilian Mae FNP-[facility] [Primary Care Provider] - 1 Week Discharge Medications: New atorvastatin 40 mg Tablet 40 mg PO BEDTIME Qty: 30 0RF aspirin 81 mg Tablet,Delayed Release (Dr/Ec) 81 mg PO DAILY Qty: 30 0RF cefuroxime axetil 500 mg tablet 500 mg PO BID Qty: 6 0RF nitroglycerin [Nitrostat] 0.4 mg Tablet, Sublingual 0.4 mg sublingual Q5MX3 PRN (Reason: Chest Pain) Qty: 30 0RF Continued (DME) nebulizer and compressor Device See Rx Instructions .ROUTE .MEDSUPPLY Qty: 1 0RF Rx Instructions: Use every eight hours or as needed for acute shortness of breath or wheezing (DME) blood pressure monitor Kit See Rx Instructions .Route Qty: 1 0RF Rx Instructions: As directed (DME) pair of crutches Kit See Rx Instructions .Route Qty: 1 0RF Rx Instructions: As directed CPT E0114 albuterol sulfate 90 mcg/actuation HFA aerosol inhaler 1 puff PO QID PRN (Reason: for wheezing) Qty: 8.5 6RF (DME) HurryCane See Rx Instructions .Route .MEDSUPPLY Qty: 1 0RF Rx Instructions: As directed cholecalciferol (vitamin D3) 50 mcg (2,000 unit) capsule 50 mcg PO DAILY Qty: 90 3RF (DME) COVID-19 antigen test Kit See Rx Instructions .Route Qty: 1 1RF Rx Instructions: As directed calcium carbonate-vitamin D3 600 mg-5 mcg (200 unit) tablet 1 tab PO DAILY Qty: 90 2RF prednisone 5 mg tablet 5 mg PO DAILY 30 Days Qty: 30 6RF gabapentin 400 mg capsule 800 mg PO QID 90 Days Qty: 720 0RF Movantik 12.5 mg tablet 12.5 mg PO QAM Qty: 30 3RF Rx Instructions: must be taken on empty stomach; no food 1 hr after or 2-3 hrs before dose ondansetron 4 mg tablet,disintegrating 4 mg PO Q8H PRN (Reason: nausea and vomiting) 30 Days Qty: 90 0RF docusate sodium 100 mg capsule 100 mg PO BEDTIME Adult 50 Plus Probiotic 4 billion cell capsule 4,000 mmu cells PO DAILY Qty: 7 0RF Rx Instructions: administer with a meal alprazolam 2 mg tablet 0.5 mg PO TID PRN (Reason: Anxiety) morphine 15 mg tablet 15 mg PO Q6H PRN (Reason: pain, severe) 30 Days Qty: 120 0RF Rx Instructions: Partial Fill upon patient request. folic acid 1 mg tablet 1 mg PO DAILY Qty: 30 3RF Discontinued losartan 50 mg tablet 50 mg PO DAILY Qty: 90 3RF hydrochlorothiazide 12.5 mg tablet 12.5 mg PO DAILY Qty: 90 1RF Discharge Orders: Discharge Order (Routine); Ordered 06/13/24 Ordered By: Diane Rubin Diet: Advance to usual diet Activity on Discharge: As tolerated Stand Alone Forms: Patient Portal Discharge page Print Language: Hungarian Care Plan Goals: Take Ceftin 500 mg 1 tablet twice daily for 3 more days Return to [facility] with recurrent episodes of chest pain, take sublingual nitroglycerin with chest pain Q 5 minutes x3 Discontinue losartan and hydrochlorothiazide Health Concerns: Take all other home medications as before Plan of Treatment: Outpatient follow-up with turf keeper Dr. Rehman for outpatient cardiac catheterization Outpatient follow-up with primary care physician Assessment: As above
[2024-06-13 11:06] VITALS: PULSE 52
--- NOTE | 2024-06-13 11:16 | MHC.CM.PN ---
Pt has been medically cleared for DC, she will go home via family transport, and resume her INVENTORY CHECKER services, PT rec. outpt. services.
[2024-06-13 11:20] VITALS: BP 130/77; PULSE 57; RESP 20; TEMP 36.3
== END 2024-06-13 12:54 | disposition home or self-care (01) | DRG 193 ==
LOC: HO.ED 06-11 00:55 → HO.EDOVER 06-11 01:55 → HO.IMC 06-11 03:15
PROVIDERS: Nurse Practitioner Acute Care; Admitting Provider Internal Medicine; Emergency Provider Internal Medicine; PCP Nurse Practitioner Family; Visit Provider Hospitalist
DX: J18.9 Pneumonia, unspecified organism (principal); J96.21 Acute and chronic respiratory failure with hypoxia; N17.0 Acute kidney failure with tubular necrosis; E87.1 Hypo-osmolality and hyponatremia; I50.22 Chronic systolic (congestive) heart failure; J44.0 Chronic obstructive pulmonary disease with (acute) lower respiratory infection; J44.1 Chronic obstructive pulmonary disease with (acute) exacerbation; R00.1 Bradycardia, unspecified; T44.7X5A Adverse effect of beta-adrenoreceptor antagonists, initial encounter; T50.2X5A Adverse effect of carbonic-anhydrase inhibitors, benzothiadiazides and other diuretics, initial encounter; F41.9 Anxiety disorder, unspecified; G89.29 Other chronic pain; I27.81 Cor pulmonale (chronic); E83.42 Hypomagnesemia; J84.112 Idiopathic pulmonary fibrosis; E87.6 Hypokalemia; I11.0 Hypertensive heart disease with heart failure; Z99.81 Dependence on supplemental oxygen; Z87.891 Personal history of nicotine dependence; Z79.52 Long term (current) use of systemic steroids; Z79.899 Other long term (current) drug therapy
CPT/HCPCS: 36415; 71045; 80048; 80053; 80061; 80307; 82550; 83036; 83735; 84443; 84484; 85025; 93005; 94640; 97161; 97530; 99285; J0696; J1644; J2405; J2470; J2919; J3475

== ENCOUNTER → 2024-06-10 21:52 | Outpatient (BNV) | payer OTHER, SELFPAY | PROVIDERS: Admitting Provider Internal Medicine; Emergency Provider Internal Medicine; PCP Nurse Practitioner Family; Visit Provider Internal Medicine Cardiovascular Disease | DX: R94.31 Abnormal electrocardiogram [ECG] [EKG] (principal) | CPT/HCPCS: 93010 ==

== ENCOUNTER 2024-06-11 01:46 | Outpatient (BNV) | payer OTHER, SELFPAY | END 2024-06-12 08:15 | PROVIDERS: Admitting Provider Internal Medicine; Emergency Provider Internal Medicine; PCP Nurse Practitioner Family; Visit Provider Internal Medicine Cardiovascular Disease | DX: R94.31 Abnormal electrocardiogram [ECG] [EKG] (principal) | CPT/HCPCS: 93010 ==

== ENCOUNTER → 2024-06-11 01:46 | Outpatient (BNV) | payer OTHER, SELFPAY | PROVIDERS: Admitting Provider Internal Medicine; Emergency Provider Internal Medicine; PCP Nurse Practitioner Family; Visit Provider Internal Medicine Cardiovascular Disease | DX: R79.89 Other specified abnormal findings of blood chemistry (principal) | CPT/HCPCS: 99222 ==

== ENCOUNTER → 2024-06-11 01:46 | Outpatient (BNV) | payer OTHER, SELFPAY | PROVIDERS: Admitting Provider Internal Medicine; Emergency Provider Internal Medicine; PCP Nurse Practitioner Family; Visit Provider Hospitalist | DX: J96.21 Acute and chronic respiratory failure with hypoxia (principal); J84.9 Interstitial pulmonary disease, unspecified | CPT/HCPCS: 99223 ==

== ENCOUNTER → 2024-06-11 01:46 | Outpatient (BNV) | payer OTHER, SELFPAY | PROVIDERS: Admitting Provider Internal Medicine; Emergency Provider Internal Medicine; PCP Nurse Practitioner Family; Visit Provider Internal Medicine Nephrology | DX: E87.1 Hypo-osmolality and hyponatremia (principal) | CPT/HCPCS: 99223; 99232 ==

== ENCOUNTER → 2024-06-11 01:46 | Outpatient (BNV) | payer OTHER, SELFPAY | PROVIDERS: Admitting Provider Internal Medicine; Emergency Provider Internal Medicine; PCP Nurse Practitioner Family; Visit Provider Internal Medicine | DX: J96.21 Acute and chronic respiratory failure with hypoxia (principal) | CPT/HCPCS: 99223; 99232; 99239; 99499 ==

== ENCOUNTER 2024-06-25 13:14 | Outpatient (AMB) | payer OTHER, SELFPAY ==
--- NOTE | 2024-06-25 13:18 | MHC.OFFVIS ---
Vital Signs 06/25/24 13:26 Height 4 ft 11 in Weight 120 lb BMI 24.2 BP 172/89 H Blood Pressure Location Rt brachial Position Sitting Pulse 80 Pulse Source Pulse Oximeter Pulse Oximetry (%) 96 Oxygen Delivery Method Room Air Oxygen Flow Rate 3 Intake Visit Reasons: Pill Count Intake Note: Amna comes in today for a pill count to morphine, patient should have 36 tablets and presents with 44 tablets which she last took today 06/25/24 at 12pm. Pain today 05/07 Personnel Counselor Required: No Accompanied by: Son Allergies No Known Allergies Allergy (Verified 06/25/24 13:27) HPI Comments Details: Patient presents today for a pill count. Patient is supposed to have #36 pills in her possession and presents with #44 pills. This demonstrates a responsible attitude towards her regimen. Patient reports mild to moderate analgesia on morphine 15 mg QID prn without any side effects except occasional constipation for which she takes Movantic. Current medication regime allows her to be less symptomatic and more functional. She reports insomnia which has been affecting her chronic daily pain. Patient also reports recent ER visit and [place] [facility] [place] of progressive shortness of breaths due to hypoxemic respiratory failure related to interstitial lung disease related to pulmonary fibrosis. She is under the care of Cardiology and Pulmonary services and has plans for upcoming cardiac catheterization. Patient now uses supplemental O2 at 3L via nasal cannula during the day and night and regularly follow ups with [facility]. She has been taking current opioid medication for severe pain. 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 Social History Household Members: Other Household Members Other:: Dog Housing: Condominium Do you presently have visiting nurse or other home services: No Alcohol intake: never Patient Tobacco Use Status: Former Tobacco user Tobacco use type: Cigarette Cigarettes Per Day: 1 Years Smoked: 30 e-Cigarette/Vaping Use: Never Used Second Hand Smoke Exposure: No Substance Use Type: Marijuana Advance Directives Date on File: 08/05/21 service: No Current occupational status: disabled Cognitive needs: No Hearing needs: No Vision needs: No Review of Systems Const All systems reviewed & are unremarkable except as noted in HPI and below Reports as per HPI, Denies body aches, Denies chills, Reports difficulty sleeping, Reports fatigue, Denies fever(s), Denies frequent falls, Denies headache(s), Denies malaise, Denies night sweats and Denies weight loss ENT Denies headache(s) Card Denies chest pain with activity, Denies palpitations and Reports dyspnea on exertion Resp Denies cough, Denies pain with cough and Reports dyspnea on exertion Neuro Denies frequent falls and Denies headache(s) Endo Reports fatigue and Denies palpitations Physical Exam Vital Signs: Last Vital Signs Pulse 80 06/25/24 13:26 BP 172/89 H 06/25/24 13:26 Pulse Ox 96 06/25/24 13:26 Oxygen Delivery Method Room Air 06/25/24 13:26 Oxygen Flow Rate 3 06/25/24 13:26 BMI result Body Mass Index 24.2 General: Appears afebrile. No acute distress. Alert and oriented. Mood and affect appropriate. Follows and participates in conversation appropriately. Respiratory effort is unlabored. No cough. Uses supplemental O2@ 3 L. Able to transition from sit to stand unassisted. Arrived via today, able to ambulate without difficulty. Resp Effort & Inspection: normal respiratory effort, able to speak in complete sentences, no cough and no respiratory distress Extrem General: Yes capillary refill normal, Yes no clubbing, cyanosis or edema and Yes no calf tenderness Psych Appearance: grossly normal and well kempt Mental Status: mental status grossly normal Speech and movement: Normal speech and movement present and Clear speech present Affect: normal affect Attitude: cooperative Thought process: Normal thought process present Thought content: Normal thought content present, suicidality (none), no hallucinations and No Depressive thoughts present Insight: Good insight present (Psych) Judgement: Good judgement present (Psych) Results Reviewed Results Reviewed: No imaging are available for review today. Assessment & Plan Assessment & Plan (1) Complex regional pain syndrome of right lower extremity: Code(s): G90.521 - Complex regional pain syndrome I of right lower limb Category: Medical (2) Chronic pain syndrome: Code(s): G89.4 - Chronic pain syndrome Category: Medical (3) Lumbar degenerative disc disease: Code(s): M51.36 - Other intervertebral disc degeneration, lumbar region Category: Medical (4) nursing home (current) use of opiate analgesic: Code(s): Z79.891 - watermelon harvesting supervisor (current) use of opiate analgesic Category: Medical (5) Dorsalgia of thoracolumbar region: Code(s): M54.6 - Pain in thoracic spine; M54.50 - Low back pain, unspecified Category: Medical (6) Lumbar spondylosis: Code(s): M47.816 - Spondylosis without myelopathy or radiculopathy, lumbar region Category: Medical Plan Patient has shown accountability for her medication regimen. There is no evidence of misuse, abuse or diversion at this time. [employer] reviewed. Script for Morphine IR 15 mg QID with an advanced date of 07/05/24 for severe pain only. Patient reports adequate analgesia without side effects. Reviewed with the patient the risks associated with benzodiazepine and superintendent terminal opioid use. Patient is aware and verbalized agreement to take the medications at least two hours apart. Patient has Narcan at home. Follow up with [facility] and Pulmonology as planned. All questions were answered and patient is in agreement of plan. Follow up in 4 weeks for a pill count or sooner as needed. Medications: Refilled morphine Partial Fill upon patient request. 15 mg PO Q6H 30 days PRN 120 tabs 0RF pain, severe G89.4 - Chronic pain syndrome, G90.521 - Complex regional pain syndrome I of right lower limb, M47.816 - Spondylosis without myelopathy or radiculopathy, lumbar region, M51.36 - Other intervertebral disc degeneration, lumbar region Coding Level of Care Code Est Pt Level 4 (84868) Diagnoses Complex regional pain syndrome of right lower extremity G90.521 Chronic pain syndrome G89.4 Lumbar degenerative disc disease M51.36 watermelon harvesting supervisor (current) use of opiate analgesic Z79.891 Dorsalgia of thoracolumbar region M54.6; M54.50 Lumbar spondylosis M47.816
[2024-06-25 13:26] VITALS: BP 172/89; PULSE 80; O2SAT 96; BMI 24.2
== END 2024-06-25 13:53 | disposition home or self-care (01) ==
PROVIDERS: PCP Nurse Practitioner Family; Visit Provider Nurse Practitioner Family
DX: G90.521 Complex regional pain syndrome I of right lower limb (principal); G89.4 Chronic pain syndrome; M51.36 Other intervertebral disc degeneration, lumbar region; Z79.891 Long term (current) use of opiate analgesic; M54.6 Pain in thoracic spine; M54.50 Low back pain, unspecified; M47.816 Spondylosis without myelopathy or radiculopathy, lumbar region
CPT/HCPCS: 99214

== ENCOUNTER → 2024-06-25 13:14 | Outpatient (BNVA) | payer OTHER, SELFPAY | PROVIDERS: PCP Nurse Practitioner Family; Visit Provider Nurse Practitioner Family | DX: G90.521 Complex regional pain syndrome I of right lower limb (principal); G89.4 Chronic pain syndrome; M51.36 Other intervertebral disc degeneration, lumbar region; M47.816 Spondylosis without myelopathy or radiculopathy, lumbar region; Z51.81 Encounter for therapeutic drug level monitoring; Z79.891 Long term (current) use of opiate analgesic; Z99.81 Dependence on supplemental oxygen | CPT/HCPCS: 99212 ==

== ENCOUNTER 2024-07-12 15:07 | Outpatient (AMB) | payer OTHER, SELFPAY ==
[2024-07-12 15:10] VITALS: BP 140/80; PULSE 70; O2SAT 90; BMI 24.8
--- NOTE | 2024-07-12 15:10 | A.OFFPC_ITS ---
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 Required: No Accompanied by: Self / Same As Patient Allergies No Known Allergies Allergy (Verified 07/12/24 15:49) Medication List - Last Reconciled 07/12/24 by Maximilian Mae, [employer] albuterol sulfate 90 mcg/actuation 1 puff PO QID PRN alprazolam 0.5 mg PO TID PRN aspirin 81 mg PO DAILY atorvastatin 40 mg PO BEDTIME blood pressure monitor As directed calcium carbonate-vitamin D3 600 mg-5 mcg (200 unit) 1 tab PO DAILY cholecalciferol (vitamin D3) 50 mcg PO DAILY COVID-19 antigen test As directed crutches (pair of crutches) As directed CPT E0114 dextroamphetamine-amphetamine 30 mg 1 tab PO TID docusate sodium 100 mg PO BEDTIME folic acid 1 mg PO DAILY gabapentin 800 mg (2 x 400 mg) PO QID [HurryCane As directed] lactobacillus combination no.9 (Adult 50 Plus Probiotic) 4,000 mmu cells PO DAILY morphine 15 mg PO Q6H PRN 30 days naloxegol (Movantik) 12.5 mg PO QAM nebulizer and compressor Use every eight hours or as needed for acute shortness of breath or wheezing nitroglycerin (Nitrostat) 0.4 mg sublingual Q5MX3 PRN ondansetron 4 mg PO Q8H PRN 30 days prednisone 5 mg PO DAILY 30 days vitamin A 1 cap PO DAILY Tobacco use date assessed: 07/12/24 Dental Screening Dental Screen Date: 07/12/24 Did you have a dental visit in the last 12 months?: Yes Did you have a dental problem in the last 6 months where you did not have access to dental care?: No Was dental information given to patient?: Patient has dentist HPI kidney Follow up HPI Details Pt was seen in the ER on 06/10 c/o chest pain and shortness of breath with exertion. Labs showed hyponatremia 126, potassium of 3.1, and leukocytosis of 12.3. Serum osmolality was 258. LFTs were essentially unremarkable except for slight elevation of bilirubin and AST. Alk-phos and ALT are normal. Troponin was 152.5 and 133.2. Chest XR showed diffuse interstitial fibrotic changes, question of superimposed infiltrate left lower lobe. EKG showed sinus tach ycardia, heart rate 122 bpm, ST depressions anterior and inferolateral leads. She was given duoneb, solu-medrol, an NS bolus, and zofran in the ER. Pt was treated with IV doxycycline and rocephin. She was seen by pulmonology who felt there was no ILD exacerbation. Pt was transitioned to PO ceftin. Electrolytes were repleted. Potassium normalized. Sodium improved from 127 to 132. Pt's renal function normalized. Hydrochlorothiazide and losartan were stopped. Pt was seen by cardiology who felt elevated troponins were due to right ventricular strain from hypoxic respiratory failure. EKG also showed changes representing acute RV strain, although obstructive coronary disease can not be entirely ruled out, therefore cardiology recommend outpatient cardiac catheterization and beta blockers, high-intensity statin and aspirin. However, patient developed bradycardia with beta-zaheer treatment, therefore metoprolol was discontinued. Pt was d/c on aspirin, statin, and nitroglycerin. Pt has a cardiac cath scheduled. Pt reports that her breathing has been better since she left the hospital. Will order chest XR. Pt's blood pressure is slightly elevated today, though further decreased. Will have pt monitor her BP at home, dropping off values in the near future (next week). Denies fever, chills, chest pain, and increased shortness of breath. 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 Social History Household Members: Other Household Members Other:: Dog Housing: Condominium Do you presently have visiting nurse or other home services: No Alcohol intake: never Patient Tobacco Use Status: Former Tobacco user Tobacco use type: Cigarette Cigarettes Per Day: 1 Years Smoked: 30 e-Cigarette/Vaping Use: Never Used Second Hand Smoke Exposure: No Substance Use Type: Marijuana Advance Directives Date on File: 08/05/21 service: No Current occupational status: disabled Cognitive needs: No Hearing needs: No Vision needs: No Questionnaire PHQ-9 Over the last 2 weeks, how often have you been bothered by any of the following problems? 10409 - PHQ-9 Billing: Patient declined-do not bill Source: Developed by Drs. Michele Pierce, Rupert Huddleston and colleagues, with an educational esme from [employer]. Thrive Questionnaire Date Thrive assessed: 06/11/24 AUDIT C Alcohol Use Questionnaire (AUDIT-C) 1. How often do you have a drink containing alcohol?: Never 3. How often do you have six or more drinks on one occasion?: Never Total Score: 0 Score Reviewed/Action Taken: Yes CESAR-7 AMB Questionnaire CESAR-7 Date CEASR - 7 assessed: 07/12/24 Source: Developed by Drs. Michele Pierce, Rupert Huddleston and colleagues, with an educational esme from [employer]. CESAR-7 Assessment Billing CESAR-7 Assessment Tool: pt declined-do not bill Review of Systems Const Reports as per HPI Physical exam (Primary Care) Vital Signs: Last Vital Signs Pulse 70 07/12/24 15:10 BP 138/74 07/12/24 16:04 Pulse Ox 90 L 07/12/24 15:10 Oxygen Delivery Method Simple Mask 07/12/24 15:10 BMI result Body Mass Index 24.8 Tobacco/Smoking Status: Tobacco use Status Tobacco use date assessed 07/12/24 07/12/24 15:12 Patient Tobacco Use Status Former Tobacco user 07/12/24 15:12 Tobacco use type Cigarette 07/12/24 15:12 e-Cigarette/Vaping Use Never Used 07/12/24 15:12 Thrive Assessment: Date of Thrive Assessment Date Thrive assessed 06/11/24 07/12/24 15:12 Const Other: speaking in full sentences with a mask on, without labored breathing General: cooperative Orientation/consciousness: patient oriented x3 Resp Effort & Inspection: normal respiratory effort Cardio Rate: regular rate Rhythm: regular rhythm Heart sounds: S1 normal heart sound present and S2 normal heart sound present Neuro General: patient oriented x3 Psych Appearance: grossly normal Mental Status: mental status grossly normal Speech and movement: Normal speech and movement present Affect: normal affect Attitude: cooperative Thought process: Normal thought process present Thought content: Normal thought content present Insight: Good insight present (Psych) Judgement: Good judgement present (Psych) Assessment and Plan Assessment & Plan (1) Abnormal EKG: Code(s): R94.31 - Abnormal electrocardiogram [ECG] [EKG] Plan: Labs ordered, following up with cardiology, cardiac cath scheduled for early next month (2) Acute hyponatremia: Code(s): E87.1 - Hypo-osmolality and hyponatremia Plan: Labs ordered (3) Chronic hyponatremia: Code(s): E87.1 - Hypo-osmolality and hyponatremia Plan: Labs ordered (4) Community acquired pneumonia: Code(s): J18.9 - Pneumonia, unspecified organism Qualifiers: Laterality: unspecified laterality Qualified Code(s): J18.9 - Pneumonia, unspecified organism Plan: Labs and chest XR ordered Plan The patient agreed to the use of a director of medical review for this encounter. Scribed for SHELBY Morse by Mis Horner director of medical review, on 07/12/2024 at 15:45 EST. Orders: Orders TSH reflex Free T4 Today E87.1 - Hypo-osmolality and hyponatremia, J18.9 - Pneumonia, unspecified organism, R94.31 - Abnormal electrocardiogram [ECG] [EKG] Comprehensive [place]. Panel Fast Today E87.1 - Hypo-osmolality and hyponatremia, J18.9 - Pneumonia, unspecified organism, R94.31 - Abnormal electrocardiogram [ECG] [EKG] XR chest 2V Today J18.9 - Pneumonia, unspecified organism Magnesium Today E87.1 - Hypo-osmolality and hyponatremia, R94.31 - Abnormal electrocardiogram [ECG] [EKG] Complete Blood Count Auto Diff Today E87.1 - Hypo-osmolality and hyponatremia, J18.9 - Pneumonia, unspecified organism, R94.31 - Abnormal electrocardiogram [ECG] [EKG] UA CC w/rflx Micro + Cult Today E87.1 - Hypo-osmolality and hyponatremia, J18.9 - Pneumonia, unspecified organism, R94.31 - Abnormal electrocardiogram [ECG] [EKG] Lipid Panel Today E87.1 - Hypo-osmolality and hyponatremia, J18.9 - Pneumonia, unspecified organism, R94.31 - Abnormal electrocardiogram [ECG] [EKG] MM screening mammo BI Today Z12.31 - Encounter for screening mammogram for malignant neoplasm of breast Referrals Cologuard Test Z12.11 - Encounter for screening for malignant neoplasm of colon, Z12.12 - Encounter for screening for malignant neoplasm of rectum Medications: Discontinued bisacodyl (Dulcolax (bisacodyl)) Discontinued Reason: Doctor's Order 5 mg PO DAILY 30 days 60 tabs 2RF Coding Level of Care Code Est Pt Level 4 (24197) Diagnoses Abnormal EKG R94.31 Acute hyponatremia E87.1 Chronic hyponatremia E87.1 Community acquired pneumonia, unspecified laterality J18.9 Laterality: unspecified laterality
[2024-07-12 16:04] VITALS: BP 138/74
== END 2024-07-12 16:37 | disposition home or self-care (01) ==
PROVIDERS: PCP Nurse Practitioner Family; Visit Provider Nurse Practitioner Family
DX: R94.31 Abnormal electrocardiogram [ECG] [EKG] (principal); E87.1 Hypo-osmolality and hyponatremia; J18.9 Pneumonia, unspecified organism
CPT/HCPCS: 99214

== ENCOUNTER 2024-07-17 09:51 | Outpatient (REF) | payer OTHER, SELFPAY ==
--- NOTE | ~2024-07-17 | XR_ITS ---
EXAMINATION: XR CHEST CLINICAL INFORMATION: Pneumonia COMPARISON: Frontal view 06/11/24 TECHNIQUE: 2 views of the chest were obtained. FINDINGS: There is kyphosis and rotation. The cardiac size is within normal limits. The hilar obscured. There are severe diffuse reticular and ringlike opacities bilaterally. No definite new focal parenchymal abnormality. No significant pleural fluid or pneumothorax XR/XR chest 2V IMPRESSION: Severe diffuse reticular and ringlike opacities. No definite new focal pneumonia. Electronically signed by: Jose Manuel Reyes MD 07/22/2024 09:24 PM EDT
[2024-07-17 13:36] LABS: MANUAL DIFF FLAG NO
[2024-07-17 13:40] LABS: Appearance Urine Clear; Color Urine Yellow; Glucose Urine UA Negative (Negative); Leukocyte Esterase Urine Trace (Negative); Nitrite Urine Negative (Negative); Specific Gravity - Urine 1.015 (1.005-1.025); UMIC TRIGGER UACC YES; Urine Blood Negative (Negative); Urine Ketones Negative (Negative); Urine Protein Negative (Neg-Trace)
[2024-07-17 13:43] LABS: Bacteria Urine None Seen (None Seen); Hyaline Casts Urine 0-2 /LPF (0-2); RBC Urine 0-2 /HPF (0-2); WBC Urine 0-5 /HPF (0-5)
[2024-07-17 13:46] LABS: Basophils Percent Auto 0.3 % (0-2); Eosinophils Absolute Auto 0.2 X10*3/uL (0.0-0.4); Eosinophils Percent Auto 2.4 % (0-4); Hematocrit 37.4 % (37.0-47.0); Hemoglobin 11.5 g/dl (12.0-16.0); Imm Gran Abs Auto 0.02 X10*3/uL (0.00-0.03); Imm Gran Pct Auto 0.2 % (0.0-0.4); Lymphocytes Absolute Auto 3.4 X10*3/uL (1.2-4.9); Mean Corpuscular HGB Conc 30.7 g/dl (31.0-35.0); Mean Corpuscular Hemoglobin 28.3 pg (27.0-33.0); Mean Corpuscular Volume 92.1 fL (80.0-98.0); Mean Platelet Volume 11.9 fL (9.4-12.3); Monocytes Absolute Auto 0.7 X10*3/uL (0.1-1.2); Monocytes Percent Auto 6.7 % (2-11); Neutrophils Absolute Auto 5.4 x10*3/uL (2.0-8.3); Neutrophils Percent Auto 55.4 % (45-73); Platelet Count 268 X10*3/uL (160-400); Red Blood Count 4.06 X10*6/uL (4.20-5.50); White Blood Count 9.8 X10*3/uL (4.8-10.8)
[2024-07-17 14:21] LABS: Alanine Aminotransferase 9 U/L (0-31); Albumin Level 3.5 g/dL (3.5-5.0); Alkaline Phosphatase 83 U/L (39-117); Anion Gap 12 (12-20); Aspartate Amino Transferase 16 U/L (5-31); Bilirubin Total 0.3 mg/dL (0.0-1.0); Blood Urea Nitrogen 5 mg/dL (9-16); Calcium 9.6 mg/dL (8.4-10.2); Carbon Dioxide 31 mmol/L (22-29); Chloride 103 mmol/L (96-108); Cholesterol 136 mg/dL (<200); Estimated Glomerular Filt Rate > 60; Glucose Fasting 86 mg/dL (60-99); HDL Cholesterol 55 mg/dL (>40); LDL Cholesterol Calculated 65 mg/dL (<100); Potassium 3.9 mmol/L (3.3-5.1); Sodium 142 mmol/L (135-145); Total Protein 6.7 g/dL (6.5-8.0); Triglycerides 82 mg/dL (<150)
[2024-07-17 14:26] LABS: TSH reflex Free T4 2.31 uIU/mL (0.32-4.0)
== END 2024-07-17 09:52 | disposition home or self-care (01) ==
LOC: HO.HMGCX 09:51
PROVIDERS: PCP Nurse Practitioner Family; Visit Provider Nurse Practitioner Family
DX: Z13.6 Encounter for screening for cardiovascular disorders (principal); E87.1 Hypo-osmolality and hyponatremia; J18.9 Pneumonia, unspecified organism; R94.31 Abnormal electrocardiogram [ECG] [EKG]
CPT/HCPCS: 36415; 71046; 80053; 80061; 81001; 83735; 84443; 85025

== ENCOUNTER 2024-07-24 14:51 | Outpatient (AMB) | payer OTHER, SELFPAY ==
--- NOTE | 2024-07-24 14:56 | A.OFFVIS_ITS ---
Vital Signs 07/24/24 15:04 Height 4 ft 11 in Weight 123 lb BMI 24.8 BP 144/84 H Blood Pressure Location Lt brachial Position Sitting Pulse 84 Pulse Source Pulse Oximeter Pulse Oximetry (%) 94 Oxygen Delivery Method Room Air Intake Visit Reasons: PILL COUNT Intake Note: Amna comes in today for a pill count to morphine, patient should have 40 tablets and presents with 40 tablets which she last took today 07/24/24 at 12pm. Pain today 6.5/10. Rn Transitional Care Required: No Accompanied by: Self / Same As Patient Allergies No Known Allergies Allergy (Verified 07/24/24 15:05) HPI Comments Details: Patient presents today for a pill count. Patient is supposed to have #40 pills in her possession and presents with #40 pills. This demonstrates a responsible attitude towards her regimen. Patient reports mild to moderate analgesia on morphine 15 mg QID prn without any side effects except occasional constipation but has not needed to take Movantik. Patient reports current medication regime allows her to be less symptomatic and more functional. Patient reports cardiac catheterization has been rescheduled on 07/31/24 at [facility] as her mom recently . Patient uses supplemental O2 at 3L via nasal cannula during the day and night and regularly follow ups with [facility] for pulmonary fibrosis. 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 Social History Household Members: Other Household Members Other:: Dog Housing: Condominium Do you presently have visiting nurse or other home services: No Alcohol intake: never Patient Tobacco Use Status: Former Tobacco user Tobacco use type: Cigarette Cigarettes Per Day: 1 Years Smoked: 30 e-Cigarette/Vaping Use: Never Used Second Hand Smoke Exposure: No Substance Use Type: Marijuana Advance Directives Date on File: 08/05/21 service: No Current occupational status: disabled Cognitive needs: No Hearing needs: No Vision needs: No Review of Systems Const All systems reviewed & are unremarkable except as noted in HPI and below Physical Exam Vital Signs: Last Vital Signs Pulse 84 07/24/24 15:04 BP 144/84 H 07/24/24 15:04 Pulse Ox 94 07/24/24 15:04 Oxygen Delivery Method Room Air 07/24/24 15:04 BMI result Body Mass Index 24.8 General: Appears afebrile. No acute distress. Alert and oriented. Mood and affect appropriate. Follows and participates in conversation appropriately. Respiratory effort is unlabored. No cough. Uses supplemental O2@ 3 L. Able to transition from sit to stand unassisted. Arrived via WC today, able to ambulate without difficulty. Resp Effort & Inspection: normal respiratory effort, able to speak in complete sentences, no cough and no respiratory distress Psych Appearance: grossly normal and well kempt Mental Status: mental status grossly normal Speech and movement: Normal speech and movement present Affect: normal affect Attitude: cooperative Thought process: Normal thought process present Thought content: Normal thought content present, suicidality (none), no hallucinations and Depressive thoughts present Insight: Good insight present (Psych) Judgement: Good judgement present (Psych) Results Reviewed Results Reviewed: No imaging are available for review today. Assessment & Plan Assessment & Plan (1) Complex regional pain syndrome of right lower extremity: Code(s): G90.521 - Complex regional pain syndrome I of right lower limb Category: Medical (2) Chronic pain syndrome: Code(s): G89.4 - Chronic pain syndrome Category: Medical (3) Lumbar degenerative disc disease: Code(s): M51.36 - Other intervertebral disc degeneration, lumbar region Category: Medical (4) [facility] (current) use of opiate analgesic: Code(s): Z79.891 - [facility] (current) use of opiate analgesic Category: Medical (5) Dorsalgia of thoracolumbar region: Code(s): M54.6 - Pain in thoracic spine; M54.50 - Low back pain, unspecified Category: Medical (6) Lumbar spondylosis: Code(s): M47.816 - Spondylosis without myelopathy or radiculopathy, lumbar region Category: Medical Plan Patient has shown accountability for her medication regimen. There is no evidence of misuse, abuse or diversion at this time. [facility]PAT reviewed. Script for Morphine IR 15 mg QID with an advanced date of 08/04/24 for moderate- severe pain only. Patient reports adequate analgesia without side effects. Reviewed with the patient the risks associated with benzodiazepine and half-way opioid use. Patient is aware and verbalized agreement to take the medications at least two hours apart. Patient has Narcan at home. Patient is scheduled to undergo cardiac catheterization on 07/31/2024 at [facility]. All questions were answered and patient is in agreement of plan. Follow up in 4 weeks for a pill count or sooner as needed. Medications: Refilled morphine Partial Fill upon patient request. 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
[2024-07-24 15:04] VITALS: BP 144/84; PULSE 84; O2SAT 94; BMI 24.8
== END 2024-07-24 15:31 | disposition home or self-care (01) ==
PROVIDERS: PCP Nurse Practitioner Family; Visit Provider Nurse Practitioner Family
DX: G89.4 Chronic pain syndrome (principal); G90.521 Complex regional pain syndrome I of right lower limb; M51.36 Other intervertebral disc degeneration, lumbar region; Z79.891 Long term (current) use of opiate analgesic; M54.6 Pain in thoracic spine; M54.50 Low back pain, unspecified; M47.816 Spondylosis without myelopathy or radiculopathy, lumbar region
CPT/HCPCS: 99214

== ENCOUNTER → 2024-07-24 14:51 | Outpatient (BNVA) | payer OTHER, SELFPAY | PROVIDERS: PCP Nurse Practitioner Family; Visit Provider Nurse Practitioner Family | DX: Z51.81 Encounter for therapeutic drug level monitoring (principal); G90.521 Complex regional pain syndrome I of right lower limb; M51.36 Other intervertebral disc degeneration, lumbar region; M54.6 Pain in thoracic spine; M54.50 Low back pain, unspecified; M47.816 Spondylosis without myelopathy or radiculopathy, lumbar region; G89.4 Chronic pain syndrome; Z79.891 Long term (current) use of opiate analgesic | CPT/HCPCS: 99212 ==

== ENCOUNTER → 2024-07-31 23:59 | Outpatient (BNV) | payer OTHER, SELFPAY | PROVIDERS: PCP Nurse Practitioner Family; Visit Provider Internal Medicine Cardiovascular Disease | DX: I21.4 Non-ST elevation (NSTEMI) myocardial infarction (principal) | CPT/HCPCS: 93458; 99152 ==

== ENCOUNTER 2024-08-21 14:53 | Outpatient (AMB) | payer OTHER, SELFPAY ==
--- NOTE | 2024-08-21 14:58 | MHC.OFFVIS ---
Vital Signs 08/21/24 15:07 Height 4 ft 11 in Weight 123 lb BMI 24.8 BP 142/84 H Blood Pressure Location Rt brachial Position Sitting Pulse 87 Pulse Source Pulse Oximeter Pulse Oximetry (%) 97 Oxygen Delivery Method Room Air Intake Visit Reasons: Pill Count Intake Note: Amna comes in today for a pill count to morphine, patient should have 52 tablets and presents with 54 tablets which she last took today 08/21/24 at 12pm. 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 Patient is supposed to have #52 pills in her possession and presents with #54 pills. This demonstrates a responsible attitude towards her regimen. Patient reports adequate analgesia on morphine 15 mg QID prn without any side effects except occasional constipation but has not needed to take Movantik. Patient reports current medication regime allows her to be less symptomatic and more functional. Patient uses supplemental O2 at 2L via nasal cannula during the day and night and regularly follow ups with [facility] for pulmonary fibrosis. 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 Social History Household Members: Other Household Members Other:: Dog Housing: Condominium Do you presently have visiting nurse or other home services: No Alcohol intake: never Patient Tobacco Use Status: Former Tobacco user Tobacco use type: Cigarette Cigarettes Per Day: 1 Years Smoked: 30 e-Cigarette/Vaping Use: Never Used Second Hand Smoke Exposure: No Substance Use Type: Marijuana Advance Directives Date on File: 08/05/21 service: No Current occupational status: disabled Cognitive needs: No Hearing needs: No Vision needs: No Review of Systems Const All systems reviewed & are unremarkable except as noted in HPI and below Reports as per HPI, Denies body aches, Denies chills, Reports difficulty sleeping, Reports fatigue, Denies fever(s), Denies malaise, Denies night sweats, Denies poor appetite, Denies weakness and Denies weight loss GI Denies abdominal pain, Denies melena, Denies hematochezia, Denies change in bowel habits, Reports nausea (chronic), Denies vomiting and Reports other (Reports positive Cologuard on 08/13/24, pending GI evaluation) Neuro Denies weakness Endo Reports fatigue Physical Exam Vital Signs: Last Vital Signs Pulse 87 08/21/24 15:07 BP 142/84 H 08/21/24 15:07 Pulse Ox 97 08/21/24 15:07 Oxygen Delivery Method Room Air 08/21/24 15:07 BMI result Body Mass Index 24.8 General: Appears afebrile. No acute distress. Alert and oriented. Mood and affect appropriate. Follows and participates in conversation appropriately. Respiratory effort is unlabored. No cough. Uses supplemental O2@ 3 L. Able to transition from sit to stand unassisted. Arrived via today, able to ambulate without difficulty. Resp Effort & Inspection: normal respiratory effort, able to speak in complete sentences, no cough and no respiratory distress Extrem General: Yes capillary refill normal, Yes no clubbing, cyanosis or edema and Yes no calf tenderness Psych Appearance: grossly normal Mental Status: mental status grossly normal Speech and movement: Normal speech and movement present and Clear speech present Affect: normal affect Attitude: cooperative Thought process: Normal thought process present Thought content: Normal thought content present, suicidality (none), no hallucinations and Depressive thoughts present Insight: Good insight present (Psych) Judgement: Good judgement present (Psych) Assessment & Plan Assessment & Plan (1) Complex regional pain syndrome of right lower extremity: Code(s): G90.521 - Complex regional pain syndrome I of right lower limb Category: Medical (2) Chronic pain syndrome: Code(s): G89.4 - Chronic pain syndrome Category: Medical (3) Lumbar degenerative disc disease: Code(s): M51.36 - Other intervertebral disc degeneration, lumbar region Category: Medical (4) 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 There is no evidence of misuse, abuse or diversion at this time. [employer]PAT reviewed. Script for Morphine IR 15 mg QID with an advanced date of 09/03/24 for moderate-severe pain only. Patient reports adequate analgesia without side effects. Reviewed with the patient the risks associated with benzodiazepine and fdc opioid use. Patient is aware and verbalized agreement to take the medications at least two hours apart. Patient has Narcan at home. All questions were answered and patient is in agreement of plan. Follow up in 4-5 weeks for a pill count or sooner as needed. Medications: Refilled morphine Partial Fill upon patient request. 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
[2024-08-21 15:07] VITALS: BP 142/84; PULSE 87; O2SAT 97; BMI 24.8
== END 2024-08-21 15:20 | disposition home or self-care (01) ==
PROVIDERS: PCP Nurse Practitioner Family; Visit Provider Nurse Practitioner Family
DX: G90.521 Complex regional pain syndrome I of right lower limb (principal); G89.4 Chronic pain syndrome; M51.36 Other intervertebral disc degeneration, lumbar region; Z79.891 Long term (current) use of opiate analgesic; M54.6 Pain in thoracic spine; M54.50 Low back pain, unspecified; M47.816 Spondylosis without myelopathy or radiculopathy, lumbar region
CPT/HCPCS: 99214; G2211

== ENCOUNTER → 2024-08-21 14:53 | Outpatient (BNVA) | payer OTHER, SELFPAY | PROVIDERS: PCP Nurse Practitioner Family; Visit Provider Nurse Practitioner Family | DX: Z51.81 Encounter for therapeutic drug level monitoring (principal); G90.521 Complex regional pain syndrome I of right lower limb; M51.36 Other intervertebral disc degeneration, lumbar region; M54.6 Pain in thoracic spine; M54.50 Low back pain, unspecified; M47.816 Spondylosis without myelopathy or radiculopathy, lumbar region; G89.4 Chronic pain syndrome; Z79.891 Long term (current) use of opiate analgesic | CPT/HCPCS: 99212 ==

== ENCOUNTER 2024-09-06 15:29 | Outpatient (AMB) | payer OTHER, SELFPAY ==
[2024-09-06 15:34] VITALS: BMI 25.8
--- NOTE | 2024-09-06 15:34 | A.OFFVIS_ITS ---
Vital Signs 09/06/24 15:34 09/06/24 15:38 Height 4 ft 11 in 4 ft 11 in Weight 127 lb 13.89 oz BMI 25.8 BP 142/66 H Blood Pressure Location Lt brachial Position Sitting Pulse 96 Pulse Source Doppler Pulse Oximetry (%) 94 Oxygen Delivery Method Nasal Cannula Oxygen Flow Rate 2 Intake Visit Reasons: Obstructive sleep apnea Allergies No Known Allergies Allergy (Verified 08/21/24 14:59) HPI HPI Obstructive sleep apnea: Details: 64-year-old lady with underlying congestive heart failure followed for interstitial lung disease, pulmonary nodules, and MIRI.?Her prior CT chest showed fibrosis and increasing had right sided pulmonary nodule.? Her PET scan showed no FDG activity in the nodule. Patient had several follow-up CT chest that shows stability of underlying findings. Her symptoms previously well controlled on prednisone 5 mg daily and calcium/vitamin-D, though recently she had to increase her prednisone to 10 mg daily. She denies any recent exacerbations. She uses supplemental oxygen up to 2 L to maintain normal oximetry. 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 Social History Household Members: Other Household Members Other:: Dog Housing: Condominium Do you presently have visiting nurse or other home services: No Alcohol intake: never Patient Tobacco Use Status: Former Tobacco user Tobacco use type: Cigarette Cigarettes Per Day: 1 Years Smoked: 30 e-Cigarette/Vaping Use: Never Used Second Hand Smoke Exposure: No Substance Use Type: Marijuana Advance Directives Date on File: 09/08/21 service: No Current occupational status: disabled Cognitive needs: No Hearing needs: No Vision needs: No Review of Systems Const Denies daytime sleepiness, Denies excessive sweating, Denies fatigue, Denies fever(s), Denies lethargy, Denies malaise, Denies night sweats, Denies snoring and Denies weight loss Eyes Denies blurry vision and Denies itchy eyes ENT Denies nasal congestion, Denies post nasal drip, Denies sinus pain, Denies sinus pressure and Denies other ( Thrush) Card Denies chest pain, Denies pedal edema, Denies dyspnea, Denies orthopnea and Denies paroxysmal nocturnal dyspnea Resp Denies cough, Denies hemoptysis, Denies excessive phlegm production, Denies dyspnea, Denies snoring and Denies wheezing GI Denies abdominal pain and Denies heartburn Musc Denies myalgias, Denies arthralgias and Denies joint swelling Skin/Breast Denies rash Neuro Denies memory loss and Denies seizure-like activity Psych Denies abnormal sleep pattern, Denies anxiety and Denies memory loss Endo Denies excessive sweating, Denies fatigue and Denies heat intolerance Demian/Lymph Denies easy bruising Aller/Immun Denies itchy eyes, Denies seasonal rhinorrhea and Denies wheezing Physical Exam Vital Signs: Last Vital Signs Pulse 96 09/06/24 15:38 BP 142/66 H 09/06/24 15:38 Pulse Ox 94 09/06/24 15:38 Oxygen Delivery Method Nasal Cannula 09/06/24 15:38 Oxygen Flow Rate 2 09/06/24 15:38 BMI result Body Mass Index 25.8 Const General: no acute distress and alert Nutritional Appearance: not obese Orientation/consciousness: Other orientation findings ( oriented) HEENT Head: Yes atraumatic Eyes General: appearance normal, both eyes and all related structures Sclerae: sclerae normal EOM: EOMs intact bilaterally Neck Neck: Yes supple Lymphatic: no lymphadenopathy noted Resp Effort & Inspection: normal respiratory effort and no use of accessory muscles Auscultation: clear to auscultation bilaterally Cardio Rate: regular rate Rhythm: regular rhythm Heart sounds: no gallops, no murmurs and no rubs Skin General skin exam: other ( warm) Extrem General: No clubbing, No cyanosis and No edema Assessment & Plan Assessment & Plan (1) Pulmonary nodule: Code(s): R91.1 - Solitary pulmonary nodule Category: Medical Plan: Previously stable. Follow-up CT chest is pending. (2) Hypoxia: Code(s): R09.02 - Hypoxemia Category: Medical Plan: Secondary to underlying ILD. Continue supplemental oxygen to maintain O2 saturation above 88%. (3) ILD (interstitial lung disease): Code(s): J84.9 - Interstitial pulmonary disease, unspecified Category: Medical Plan: Had to increase prednisone to 10 daily. Continue prednisone calcium/vitamin-D. CT chest is pending to evaluate for progression of underlying disease. Orders: Orders CT chest wo IV con Today J84.9 - Interstitial pulmonary disease, unspecified Coding Level of Care Code Est Pt Level 4 (47757) Complex EM visit Add On G2211 Diagnoses Pulmonary nodule R91.1 Hypoxia R09.02 ILD (interstitial lung disease) J84.9
[2024-09-06 15:38] VITALS: BP 142/66; PULSE 96; O2SAT 94
== END 2024-09-06 15:59 | disposition home or self-care (01) ==
PROVIDERS: PCP Nurse Practitioner Family; Visit Provider Internal Medicine Pulmonary Disease
DX: R91.1 Solitary pulmonary nodule (principal); R09.02 Hypoxemia; J84.9 Interstitial pulmonary disease, unspecified
CPT/HCPCS: 99214; G2211

== ENCOUNTER → 2024-09-06 15:29 | Outpatient (BNVA) | payer OTHER, SELFPAY | PROVIDERS: PCP Nurse Practitioner Family; Visit Provider Internal Medicine Pulmonary Disease | DX: J84.9 Interstitial pulmonary disease, unspecified (principal); R91.1 Solitary pulmonary nodule; R09.02 Hypoxemia; Z79.52 Long term (current) use of systemic steroids; Z99.81 Dependence on supplemental oxygen | CPT/HCPCS: 99212 ==

== ENCOUNTER 2024-09-18 15:00 | Outpatient (AMB) | payer OTHER, SELFPAY ==
--- NOTE | 2024-09-18 15:02 | MHC.OFFVIS ---
Vital Signs 09/18/24 15:23 Height 4 ft 11 in Weight 127 lb BMI 25.6 BP 145/82 H Blood Pressure Location Lt brachial Position Sitting Pulse 86 Pulse Source Pulse Oximeter Pulse Oximetry (%) 97 Oxygen Delivery Method Nasal Cannula Oxygen Flow Rate 3 Intake Visit Reasons: Pill Count Intake Note: Amna comes in today for a pill count to morphine, patient should have 56 tablets and presents with 58 tablets which she last took today 09/18/24 at 2:20pm. Pain today 06/06 Allergies No Known Allergies Allergy (Verified 09/18/24 15:23) HPI Comments Details: Patient presents today for a pill count. Patient is supposed to have #56 pills in her possession and presents with #58 pills. This demonstrates a responsible attitude towards her regimen. Patient reports adequate analgesia on morphine 15 mg QID prn without any side effects except occasional constipation but has not needed to take Movantik. Patient reports current medication regime allows her to be less symptomatic and more functional. She also takes gabapentin. Patient uses supplemental O2 at 3L via nasal cannula during the day and night and regularly follow ups with [facility] for pulmonary fibrosis. 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 Social History Household Members: Other Household Members Other:: Dog Housing: Condominium Do you presently have visiting nurse or other home services: No Alcohol intake: never Patient Tobacco Use Status: Former Tobacco user Tobacco use type: Cigarette Cigarettes Per Day: 1 Years Smoked: 30 e-Cigarette/Vaping Use: Never Used Second Hand Smoke Exposure: No Substance Use Type: Marijuana Advance Directives Date on File: 08/05/21 service: No Current occupational status: disabled Cognitive needs: No Hearing needs: No Vision needs: No Review of Systems Const All systems reviewed & are unremarkable except as noted in HPI and below Physical Exam General: Appears afebrile. No acute distress. Alert and oriented. Mood and affect appropriate. Follows and participates in conversation appropriately. Respiratory effort is unlabored. No cough. Uses supplemental O2@ 3 L. Able to transition from sit to stand unassisted. Uses walker with seat with ambulation. Resp Effort & Inspection: normal respiratory effort, able to speak in complete sentences, no cough and no respiratory distress Extrem General: Yes capillary refill normal, Yes no clubbing, cyanosis or edema and Yes no calf tenderness Psych Appearance: grossly normal Mental Status: mental status grossly normal Speech and movement: Normal speech and movement present Affect: normal affect Attitude: cooperative Thought process: Normal thought process present Thought content: Normal thought content present, suicidality (none), no hallucinations and Depressive thoughts present Insight: Good insight present (Psych) Judgement: Good judgement present (Psych) Results Reviewed Results Reviewed: No imaging are available for review today. 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 There is no evidence of misuse, abuse or diversion at this time[facility] 15 mg QID with an advanced date of 10/03/24 for moderate-severe pain only. Patient reports adequate analgesia without side effects. Reviewed with the patient the risks associated with benzodiazepine and alf opioid use. Patient is aware and verbalized agreement to take the medications at least two hours apart. Refill sent for Narcan today. All questions were answered and patient is in agreement of plan. Follow up in 4-5 weeks for a pill count or sooner as needed. Medications: New naloxone 4 mg/actuation (Narcan) spray 1 dose into ONE nostril; alternate nostrils w each dose until help arrives 4 mg intranasal Q2M PRN 2 ea 0RF opioid overdose Refilled morphine Partial Fill upon patient request. 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
[2024-09-18 15:23] VITALS: BP 145/82; PULSE 86; O2SAT 97; BMI 25.6
== END 2024-09-18 15:25 | disposition home or self-care (01) ==
PROVIDERS: PCP Nurse Practitioner Family; Visit Provider Nurse Practitioner Family
DX: G90.521 Complex regional pain syndrome I of right lower limb (principal); G89.4 Chronic pain syndrome; M51.369 Other intervertebral disc degeneration, lumbar region without mention of lumbar back pain or lower extremity pain; Z79.891 Long term (current) use of opiate analgesic; M54.6 Pain in thoracic spine; M54.50 Low back pain, unspecified; M47.816 Spondylosis without myelopathy or radiculopathy, lumbar region
CPT/HCPCS: 99214; G2211

== ENCOUNTER → 2024-09-18 15:00 | Outpatient (BNVA) | payer OTHER, SELFPAY | PROVIDERS: PCP Nurse Practitioner Family; Visit Provider Nurse Practitioner Family | DX: G90.521 Complex regional pain syndrome I of right lower limb (principal); M51.369 Other intervertebral disc degeneration, lumbar region without mention of lumbar back pain or lower extremity pain; M54.50 Low back pain, unspecified; G89.4 Chronic pain syndrome; M47.816 Spondylosis without myelopathy or radiculopathy, lumbar region; Z79.891 Long term (current) use of opiate analgesic; Z99.81 Dependence on supplemental oxygen | CPT/HCPCS: 99212 ==

== ENCOUNTER 2024-10-12 14:56 | Outpatient (REF) | payer OTHER, SELFPAY | END 2024-10-12 14:57 | disposition home or self-care (01) | LOC: HO.CT 14:56 | PROVIDERS: PCP Nurse Practitioner Family; Visit Provider Internal Medicine Pulmonary Disease | DX: J84.9 Interstitial pulmonary disease, unspecified (principal) | CPT/HCPCS: 71250 ==

== ENCOUNTER → 2024-10-12 14:58 | Outpatient (BNV) | payer OTHER, SELFPAY | PROVIDERS: PCP Nurse Practitioner Family; Visit Provider Radiology Diagnostic Radiology | DX: J84.9 Interstitial pulmonary disease, unspecified (principal) | CPT/HCPCS: 71250 ==

== ENCOUNTER → 2024-10-15 13:19 | Outpatient (AMB) | payer OTHER, SELFPAY ==
--- NOTE | 2024-10-15 13:18 | MHC.OFFVIS ---
Vital Signs 10/15/24 13:20 Height 4 ft 11 in Intake Visit Reasons: 4 month f/u RESCHEDULED Intake Note: Telehealth 4 month follow up of IBS. Allergies No Known Allergies Allergy (Verified 09/18/24 15:23) HPI HPI 4 month f/u RESCHEDULED: Details: 64 yr old f here for f/u RECAP: Had been seeing Nati 1/ IBS- M--going between constipation and diarrhea rx: senna and colace colonoscopy 2020-- SSA removed --3 yr f/u recommended she was dx with panc divisum INTERIM: she had pos cologuard she tried movantik but it was giving her withdrawal sx she is still going between constipation and diarrhea takes morphine for chronic foot pain, --been on for years, takes 15 mg once a day at least, up to q 8 hr day A/P: 1/ Abn bowel habit maybe due to IBS-M, micorscopic colitis, panc insuff enteroapthy, opiate use -- pos cologuard 2/ hx of colon polyp, SSA PLAN: 1/ Urgent colonoscopy with suprep 2/ might try relistor 3/ didn't get Vit A--will resend PFS Medical History ILD (interstitial lung disease) Osteomyelitis Lymphadenopathy, mediastinal Respiratory failure Chest pain Congestive heart failure (CHF) Chronic pain syndrome prison (current) use of opiate analgesic Complex regional pain syndrome of right lower extremity Scoliosis Chronic idiopathic constipation IBS (irritable bowel syndrome) ADHD Anxiety Depression Constipation 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 Social History Household Members: Other Household Members Other:: Dog Housing: Condominium Do you presently have visiting nurse or other home services: No Alcohol intake: never Patient Tobacco Use Status: Former Tobacco user Tobacco use type: Cigarette Cigarettes Per Day: 1 Years Smoked: 30 e-Cigarette/Vaping Use: Never Used Second Hand Smoke Exposure: No Substance Use Type: Marijuana Advance Directives Date on File: 08/05/21 service: No Current occupational status: disabled Cognitive needs: No Hearing needs: No Vision needs: No Telehealth Telehealth Telehealth Platform: Telephone Location of provider rendering services: practice address Location of patient: address on file Patient Identification confirmed using: Name, : Yes Telehealth method: voice only Patient verbally consented to treatment: Yes Patient verbally consented to billing insurance company: Yes Patient informed of any privacy concerns related to visit: Yes Minutes spent on Phone/Video with Pt.: 12 Assessment & Plan Assessment & Plan (1) Positive colorectal cancer screening using Cologuard test: Code(s): R19.5 - Other fecal abnormalities Category: Medical Plan: see above Medications: New sodium,potassium,mag sulfates 17.5-3.13-1.6 gram (Suprep Bowel Prep Kit) DILUTE; drink 1/2 at 6-8 pm and half at 11 PM- 1AM 354 mL 0RF Lactobac. rhamnosus GG-inulin 10 billion cell -200 mg ([facility] Datorama) 1 tab PO DAILY 90 tabs 1RF vitamin A 1 cap PO DAILY 90 caps 0RF Discontinued naloxegol (Movantik) must be taken on empty stomach; no food 1 hr after or 2-3 hrs before dose Discontinued Reason: Doctor's Order 12.5 mg PO QAM 30 tabs 3RF Coding Level of Care Code Tele Est Pt Level 3 (81256) Diagnoses Positive colorectal cancer screening using Cologuard test R19.5
== END ==
LOC: HO.HGI 13:19
PROVIDERS: PCP Nurse Practitioner Family; Visit Provider Internal Medicine Gastroenterology
DX: R19.5 Other fecal abnormalities (principal)
CPT/HCPCS: 99442

== ENCOUNTER → 2024-10-15 13:19 | Outpatient (BNVA) | payer OTHER, SELFPAY | PROVIDERS: PCP Nurse Practitioner Family; Visit Provider Internal Medicine Gastroenterology ==

== ENCOUNTER 2024-10-16 15:41 | Outpatient (AMB) | payer OTHER, SELFPAY ==
--- NOTE | 2024-10-16 15:42 | MHC.OFFVIS ---
Vital Signs 10/16/24 15:49 Height 4 ft 11 in Weight 130 lb 6 oz BMI 26.3 BMI Reason not done Patient refused/unable Comment pt declined vitals today Intake Visit Reasons: Medication Count Intake Note: Amna comes in today for a pill count to morphine, patient should have 64 tablets and presents with 65 which she last took today 10/16/24 at 3pm. Pain today 4/10. Patient also brought in 7 bottles of Gabapentin 400 mg to be destroyed. A total number of 714 tablets were destroyed in office. Nursing Information Systems Coordinator Required: No Accompanied by: Self / Same As Patient Allergies No Known Allergies Allergy (Verified 10/16/24 15:49) HPI Comments Details: Patient presents today for a pill count. Patient is supposed to have #64 pills in her possession and presents with #65 pills. This demonstrates a responsible attitude towards her regimen. Patient reports adequate analgesia on morphine 15 mg QID prn without any side effects except occasional constipation but has not needed to take Movantik. Patient reports current medication regime allows her to be less symptomatic and more functional. She also takes gabapentin. Currently rates pain at 4/10. Patient uses supplemental O2 at 3L via nasal cannula during the day and night and follows with [facility] for pulmonary fibrosis. She is scheduled for colonoscopy tomorrow and reports she is in a hurry to get home due to colon prep effects. 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 Social History Household Members: Other Household Members Other:: Dog Housing: Condominium Do you presently have visiting nurse or other home services: No Alcohol intake: never Patient Tobacco Use Status: Former Tobacco user Tobacco use type: Cigarette Cigarettes Per Day: 1 Years Smoked: 30 e-Cigarette/Vaping Use: Never Used Second Hand Smoke Exposure: No Substance Use Type: Marijuana Advance Directives Date on File: 08/05/21 service: No Current occupational status: disabled Cognitive needs: No Hearing needs: No Vision needs: No Review of Systems Const All systems reviewed & are unremarkable except as noted in HPI and below Physical Exam Vital Signs: BMI result Body Mass Index 26.3 General: Appears afebrile. Alert and oriented. Mood and affect appropriate. Follows and participates in conversation appropriately. Respiratory effort is unlabored. No cough. Uses supplemental O2@ 3 L. Able to transition from sit to stand unassisted. Uses walker with seat with ambulation. Resp Effort & Inspection: normal respiratory effort, able to speak in complete sentences, no cough and no respiratory distress Psych Appearance: grossly normal and well kempt Mental Status: mental status grossly normal Speech and movement: Normal speech and movement present and Clear speech present Affect: normal affect Attitude: cooperative Thought process: Normal thought process present Thought content: Normal thought content present, suicidality (none), no hallucinations and Depressive thoughts present Insight: Good insight present (Psych) Judgement: Good judgement present (Psych) Assessment & Plan Assessment & Plan (1) Complex regional pain syndrome of right lower extremity: Code(s): G90.521 - Complex regional pain syndrome I of right lower limb Category: Medical (2) Chronic pain syndrome: Code(s): G89.4 - Chronic pain syndrome Category: Medical (3) Lumbar degenerative disc disease: Code(s): M51.36 - Other intervertebral disc degeneration, lumbar region Category: Medical (4) 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 There is no evidence of misuse, abuse or diversion at this time. [facility]PAT reviewed. Script for Morphine IR 15 mg QID with an advanced date of 11/01/24 for moderate-severe pain only. Patient reports adequate analgesia without side effects. Reviewed with the patient the risks associated with benzodiazepine and termite renewal inspector opioid use. Patient is aware and verbalized agreement to take the medications at least two hours apart. Patient has Narcan at home. All questions were answered and patient is in agreement of plan. Follow up in 4-5 weeks for a pill count or sooner as needed. Medications: Refilled morphine Partial Fill upon patient request. 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
[2024-10-16 15:49] VITALS: BMI 26.3
== END 2024-10-16 15:55 | disposition home or self-care (01) ==
PROVIDERS: PCP Nurse Practitioner Family; Visit Provider Nurse Practitioner Family
DX: G90.521 Complex regional pain syndrome I of right lower limb (principal); G89.4 Chronic pain syndrome; M51.369 Other intervertebral disc degeneration, lumbar region without mention of lumbar back pain or lower extremity pain; Z79.891 Long term (current) use of opiate analgesic; M54.6 Pain in thoracic spine; M54.50 Low back pain, unspecified; M47.816 Spondylosis without myelopathy or radiculopathy, lumbar region
CPT/HCPCS: 99214; G2211

== ENCOUNTER → 2024-10-16 15:41 | Outpatient (BNVA) | payer OTHER, SELFPAY | PROVIDERS: PCP Nurse Practitioner Family; Visit Provider Nurse Practitioner Family | DX: Z51.81 Encounter for therapeutic drug level monitoring (principal); G90.521 Complex regional pain syndrome I of right lower limb; M51.360 Other intervertebral disc degeneration, lumbar region with discogenic back pain only; M54.6 Pain in thoracic spine; M54.50 Low back pain, unspecified; M47.816 Spondylosis without myelopathy or radiculopathy, lumbar region; G89.4 Chronic pain syndrome; Z79.891 Long term (current) use of opiate analgesic | CPT/HCPCS: 99212 ==

== ENCOUNTER 2024-10-17 10:53 | Day surgery (SDC) | payer OTHER, SELFPAY ==
--- NOTE | 2024-10-16 10:14 | P.CONAN_ITS ---
Documented by User: Christine Wilson NP 10/16/24 10:20 HPI - Anesthesia Eval Consult details Narrative: 64yo F for Colonoscopy [facility] [place] Cardiology eval for CP/SOB - neg cath 07/2024. Lung disease likely cause O2 @ 2L, Prednisone daily Follows [facility] [place] pulmo for chronic hypoxemic respiratory failure related to interstitial lung disease related to pulmonary fibrosis. Chronic opioids PMFSH Active Problems Active Problems: All Active Problems ILD (interstitial lung disease) (Acute) Positive colorectal cancer screening using Cologuard test (Acute) Elevated troponin (Acute) Community acquired pneumonia (Acute) Acute hyponatremia (Acute) Chronic hyponatremia (Acute) Abnormal EKG (Acute) Constipation by delayed colonic transit (Acute) Pulmonary nodule (Acute) Chronic nausea (Acute) History of transmetatarsal amputation of right foot (Acute) Foot callus (Acute) Chest discomfort (Acute) Screening for colorectal cancer (Acute) Lumbar spondylosis (Acute) Lumbar degenerative disc disease (Acute) Dorsalgia of thoracolumbar region (Acute) Leukocytosis (Acute) Pulmonary nodule 1 cm or greater in diameter (Acute) Nausea (Acute) Scoliosis (Acute) Essential hypertension (Acute) Dyspnea on exertion (Acute) HTN (hypertension) (Acute) Right foot ulcer (Acute) Right foot ulcer (Acute) Chronic cor pulmonale (Acute) Right atrial enlargement (Acute) Dizziness (Acute) Supplemental oxygen dependent (Acute) CHF (congestive heart failure) (Acute) Right ventricular enlargement (Acute) Elevated troponin I level (Acute) Lymphadenopathy, mediastinal (Acute) Chronic interstitial lung disease (Acute) Hypoxia (Acute) Chronic pain syndrome (Acute) 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 (Acute) Complex regional pain syndrome of right lower extremity (Acute) Murmur (Acute) Screening for osteoporosis (Acute) Screening for blood or protein in urine (Acute) Pneumonitis (Acute) Screening for breast cancer (Acute) Osteonecrosis of foot due to previous trauma (Acute) Diarrhea (Acute) COVID-19 (Acute) Chronic idiopathic constipation (Acute) IBS (irritable bowel syndrome) (Acute) Constipation (Acute) Past Medical History Medical History ILD (interstitial lung disease) Osteomyelitis Lymphadenopathy, mediastinal Respiratory failure Chest pain Congestive heart failure (CHF) Chronic pain syndrome half-way (current) use of opiate analgesic Complex regional pain syndrome of right lower extremity Scoliosis Chronic idiopathic constipation IBS (irritable bowel syndrome) ADHD Anxiety Depression Constipation 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 Surgical History Surgical History History of transmetatarsal amputation of right foot History of colonoscopy Social History Social History Household Members: Other Household Members Other:: Dog Housing: Condominium Do you presently have visiting nurse or other home services: No Alcohol intake: never Patient Tobacco Use Status: Former Tobacco user Tobacco use type: Cigarette Cigarettes Per Day: 1 Years Smoked: 30 e-Cigarette/Vaping Use: Never Used Second Hand Smoke Exposure: No Use of substances other than those prescribed or required for medical reasons: Yes Substance Use Type: Marijuana Have you been hit, kicked, punched, or otherwise hurt by someone within the past year? If so, by whom?: No Are you DNR?: No Advance Directives: No Advance Directives Information Provided: Yes Advance Directives Date on File: 08/05/21 Recently lost weight without trying: No service: No Current occupational status: disabled Cognitive needs: No Hearing needs: No Vision needs: No Meds Allergies Allergy/AdvReac Type Severity Reaction Status Date / Time No Known Allergies Allergy Verified 10/16/24 15:49 Home Medications ?Medication ?Instructions ?Recorded ?Confirmed ?Last Taken ?Type alprazolam 2 mg tablet 0.5 mg PO TID PRN Anxiety 03/08/23 07/12/24 06/10/24 History dextroamphetamine-amphetamine 30 1 tab PO TID 06/25/24 07/12/24 Unknown History mg tablet Exam Pertinent Lab Results Pertinent Lab Results: Laboratory Tests 07/17/24 09:56 WBC 9.8 Hgb 11.5 L Hct 37.4 Plt Count 268 Sodium 142 Potassium 3.9 Chloride 103 Carbon Dioxide 31 H BUN 5 L Creatinine 0.66 Narrative Narrative: Cardiac cath 07/2024 neg for CAD, right circulation dominant EKG 05/2024 Vent. Rate : 076 BPM Atrial Rate : 076 BPM P-R Int : 182 ms QRS Dur : 080 ms QT Int : 438 ms P-R-T Axes : 053 118 -35 degrees QTc Int : 492 ms Normal sinus rhythm Possible Left atrial enlargement Right axis deviation Right ventricular hypertrophy with repolarization abnormality T wave abnormality, consider inferior ischemia Prolonged QT Abnormal ECG When compared with ECG of 10-JUN-2024 21:52, Vent. rate has decreased BY 46 BPM ECHO 04/2024 Conclusions: - The left ventricular systolic function is hyperdynamic. The visually estimated ejection fraction is >70%. - Moderately increased right ventricular cavity size. There is moderately decreased right ventricular systolic function. - No obvious valvular pathology seen on this study. 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 Family history of problems with anesthesia: No Surgical History Surgical History History of transmetatarsal amputation of right foot History of colonoscopy History of Problems with Anesthesia: No Social History Social History Household Members: Other Household Members Other:: Dog Housing: Condominium Do you presently have visiting nurse or other home services: No Alcohol intake: never Patient Tobacco Use Status: Former Tobacco user Tobacco use type: Cigarette Cigarettes Per Day: 1 Years Smoked: 30 e-Cigarette/Vaping Use: Never Used Second Hand Smoke Exposure: No Use of substances other than those prescribed or required for medical reasons: Yes Substance Use Type: Marijuana Have you been hit, kicked, punched, or otherwise hurt by someone within the past year? If so, by whom?: No Are you DNR?: No Advance Directives: No Advance Directives Information Provided: Yes Advance Directives Date on File: 08/05/21 Recently lost weight without trying: No service: No Current occupational status: disabled Cognitive needs: No Hearing needs: No Vision needs: No Meds Allergies Allergy/AdvReac Type Severity Reaction Status Date / Time No Known Allergies Allergy Verified 10/16/24 15:49 Home Medications ?Medication ?Instructions ?Recorded ?Confirmed ?Last Taken ?Type alprazolam 2 mg tablet 0.5 mg PO TID PRN Anxiety 03/08/23 07/12/24 06/10/24 History dextroamphetamine-amphetamine 30 1 tab PO TID 06/25/24 07/12/24 Unknown History mg tablet Exam Airway Mallampati Class: II TM Dist: >3cm Neck ROM: Full Heart: rrr Lungs: cta Assessment and Plan Assessment Anesthesia Assessment: Anesthesia Plan Discussed Final Anesthetic Review Family History of Problems with Anesthesia: No History of Problems with Anesthesia: No NPO: Yes ASA Class: III Final Preanesthetic Review: No Changes in Pt Med Stat, Meds/Allgs Chart Reviewed and Consent Obtained/Reviewed Patient Risk: Intermediate Procedure Risk: Low Anesthetic Plan Anesthetic Plan: MAC: Disposition: Standard PACU
[2024-10-17 11:00] VITALS: BP 125/75; PULSE 88; RESP 16; TEMP 36.7; O2SAT 92; BMI 24.8
[2024-10-17] MEDS: Lactated Ringers 1,000 ML 100 ML IVCONT (11:16)
[2024-10-17] MEDS: Albuterol Sulfate (0.083%) 2.5 MG/3 ML VIAL.NEB INHALE (11:33)
[2024-10-17 11:35] VITALS: PULSE 75; RESP 17; O2SAT 93
--- NOTE | 2024-10-17 11:42 | P.HPSUR_ITS ---
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 analgesic Complex regional pain syndrome of right lower extremity Scoliosis Chronic idiopathic constipation) History of Previous Operations: Relevant previous surgery/procedure and date(s) ( History of transmetatarsal amputation of right foot History of colonoscopy) Allergies: Allergies Allergy/AdvReac Type Severity Reaction Status Date / Time No Known Allergies Allergy Verified 10/16/24 15:49 Review of Systems Sugical H&P ROS: Negative: Constitution, Cardiovascular, Respiratory, Neurological, Psychiatric, Hem-Onc, Allergic/Immunologic, Gastrointestinal, Genitourinary, Musculoskeletal, Integumentary, Endocrine and Eyes/Ears/Nose/Throat Exam Surgical H&P Exam: Normal: HEENT, Normal: Heart, Normal: Lungs, Normal: Extremities, Normal: Abdomen, Normal: Skin and Normal: Neurological Plan Diagnosis/Plan: Unchanged I have reviewed the history and physical and performed a pertinent physical examination on my patient. No changes have occurred unless specified. Time Spent With Patient Time: Total time managing care of this patient today ____ minutes.
--- NOTE | 2024-10-17 13:12 | HO.OPN-COLON ---
Colonoscopy Operative Note Operative Note Date of Service: 10/17/24 Narrative: Operative Information Procedure Description: Colonoscopy Indication: pos cologuard Anesthesia: MAC COLONOSCOPY Instrument: Olympus variable stiffness pediatric scope 190L Colonoscopy Monitoring: Vital signs and clinical assessment, continuous EKG monitoring, Pulse oximetry, Carbon Dioxide monitoring and blood pressure monitoring were done throughout the procedure. Colon withdrawal time was 31 minutes. Procedure: The patient was placed in the left lateral decubitis position and pre-procedure medications were administered. After a digital rectal examination of the ano-rectum, the video colonoscope was inserted into the rectum and advanced through the colon to the cecum/TI. The colonoscope was slowly withdrawn in a retrograde panoramic fashion and the colon mucosa was carefully examined including a retroflexed view of the rectum. Findings and interventions are described below. Procedure Difficulty: easy Findings: Terminal Ileum-normal, random bx taken random colon bx taken during to granular appearance Cecum:normal Ascending Colon: 6-8 mm sessile polyp removed with cold snare with one clip applied, 4-6 mm sessile polyp removed with cold forceps Transverse Colon -normal Descending Colon:normal Sigmoid Colon: normal Rectum: Retroflexion with small internal hemorrhoids seen, grade I Anorectum - normal Intervention: cold snare, cold forceps Colon preparation: [place] Bowel Preparation Scale Right colon; 2 Transverse colon: 2 Left colon; 2 (0 = Unprepared colon segment with mucosa not seen due to solid stool that cannot be cleared. 1 = Portion of mucosa of the colon segment seen, but other areas of the colon segment not well seen due to staining, residual stool and/or opaque liquid. 2 = Minor amount of residual staining, small fragments of stool and/or opaque liquid, but mucosa of colon segment seen well. 3 = Entire mucosa of colon segment seen well with no residual staining, small fragments of stool or opaque liquid) Impression and Post Procedure Diagnosis: colon polyps internal hemorrhoids Plan: High fiber diet leaflet Avoid straining at stool, epsom salts and sitz bath, anusol supps or cream Repeat Colonoscopy in 5 years due to polyps or earlier if clinically indicated Above findings were reviewed with the patient and relevant handouts were provided if indicated.
[2024-10-17 13:18] VITALS: BP 105/59; PULSE 76; RESP 16; TEMP 36.9; O2SAT 94
[2024-10-17 13:36] VITALS: BP 102/69; PULSE 76; RESP 18; TEMP 36.7; O2SAT 96
== END 2024-10-17 13:54 | disposition home or self-care (01) ==
PROVIDERS: PCP Nurse Practitioner Family; Visit Provider Internal Medicine Gastroenterology
PROC: 0DJD8ZZ Inspection of Lower Intestinal Tract, Via Natural or Artificial Opening Endoscopic (ICD-10-PCS; CPT 45378; principal; 2024-10-17 13:00)
DX: R19.5 Other fecal abnormalities (principal); Z86.0101 Personal history of adenomatous and serrated colon polyps; D12.2 Benign neoplasm of ascending colon; K64.0 First degree hemorrhoids; K58.9 Irritable bowel syndrome, unspecified; K59.04 Chronic idiopathic constipation; I50.9 Heart failure, unspecified; J84.9 Interstitial pulmonary disease, unspecified; G90.521 Complex regional pain syndrome I of right lower limb; G62.9 Polyneuropathy, unspecified; M86.9 Osteomyelitis, unspecified; F32.A Depression, unspecified; Z89.431 Acquired absence of right foot; Z79.899 Other long term (current) drug therapy; Z79.891 Long term (current) use of opiate analgesic; Z87.891 Personal history of nicotine dependence
CPT/HCPCS: 45385; 45380; 88305; 94640; J1610; J2003; J2250; J2704

== ENCOUNTER → 2024-10-17 10:53 | Outpatient (BNV) | payer OTHER, SELFPAY | PROVIDERS: PCP Nurse Practitioner Family; Visit Provider Internal Medicine Gastroenterology | DX: Z12.11 Encounter for screening for malignant neoplasm of colon (principal); R19.5 Other fecal abnormalities; D12.2 Benign neoplasm of ascending colon; K64.0 First degree hemorrhoids | CPT/HCPCS: 45380; 45385 ==

== ENCOUNTER 2024-11-15 12:57 | Outpatient (AMB) | payer OTHER, SELFPAY ==
--- NOTE | 2024-11-15 13:02 | A.OFFVIS_ITS ---
Vital Signs 11/15/24 13:09 Height 4 ft 11 in Weight 128 lb BMI 25.9 BP 151/77 H Blood Pressure Location Rt brachial Position Sitting Pulse 94 Pulse Source Pulse Oximeter Pulse Oximetry (%) 96 Oxygen Delivery Method Nasal Cannula Oxygen Flow Rate 3 Intake Visit Reasons: PILL COUNT Intake Note: Amna comes in today for a pill count to morphine, patient should have 60 tablets and presents with 60 tablets which she last took today 11/15/24 at 12:30pm. Pain today 510 Transit Coach Operator Required: No Accompanied by: Self / Same As Patient Allergies No Known Allergies Allergy (Verified 11/15/24 13:40) HPI Comments Details: Patient presents today for a pill count. Patient is supposed to have #60 pills in her possession and presents with #60 pills. This demonstrates a responsible attitude towards her regimen. Patient reports adequate analgesia on morphine 15 mg QID prn without any side effects except occasional constipation but has not needed to take Movantik. Patient reports current medication regime allows her to be less symptomatic and more functional. She also takes gabapentin. Currently rates pain at 5/10. Patient uses supplemental O2 at 2L via nasal cannula during the day and night and follows with [facility] for pulmonary fibrosis. 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 Social History Household Members: Other Household Members Other:: Dog Housing: Condominium Do you presently have visiting nurse or other home services: No Alcohol intake: never Patient Tobacco Use Status: Former Tobacco user Tobacco use type: Cigarette Cigarettes Per Day: 1 Years Smoked: 30 e-Cigarette/Vaping Use: Never Used Second Hand Smoke Exposure: No Substance Use Type: Marijuana Advance Directives Date on File: 08/05/21 service: No Current occupational status: disabled Cognitive needs: No Hearing needs: No Vision needs: No Review of Systems Const All systems reviewed & are unremarkable except as noted in HPI and below Physical Exam Vital Signs: Last Vital Signs Pulse 94 11/15/24 13:09 BP 151/77 H 11/15/24 13:09 Pulse Ox 96 11/15/24 13:09 Oxygen Delivery Method Nasal Cannula 11/15/24 13:09 Oxygen Flow Rate 3 11/15/24 13:09 BMI result Body Mass Index 25.9 General: Appears afebrile. Alert and oriented. Mood and affect appropriate. Follows and participates in conversation appropriately. Respiratory effort is unlabored. No cough. Uses supplemental O2@ 2 L via nasal cannula. Able to transition from sit to stand unassisted. Uses walker with seat with ambulation. Resp Effort & Inspection: normal respiratory effort, able to speak in complete sentences, no cough and no respiratory distress Psych Appearance: grossly normal Mental Status: mental status grossly normal Speech and movement: Normal speech and movement present Affect: normal affect Attitude: cooperative Thought process: Normal thought process present Thought content: Normal thought content present, suicidality (none), no hallucinations and Depressive thoughts present Insight: Good insight present (Psych) Judgement: Good judgement present (Psych) Results Reviewed Results Reviewed: No imaging are available for review today. Assessment & Plan Assessment & Plan (1) Complex regional pain syndrome of right lower extremity: Code(s): G90.521 - Complex regional pain syndrome I of right lower limb Category: Medical (2) Chronic pain syndrome: Code(s): G89.4 - Chronic pain syndrome Category: Medical (3) Lumbar degenerative disc disease: Code(s): M51.36 - Other intervertebral disc degeneration, lumbar region Category: Medical (4) skilled nursing (current) use of opiate analgesic: Code(s): Z79.891 - skilled nursing (current) use of opiate analgesic Category: Medical (5) Dorsalgia of thoracolumbar region: Code(s): M54.6 - Pain in thoracic spine; M54.50 - Low back pain, unspecified Category: Medical (6) Lumbar spondylosis: Code(s): M47.816 - Spondylosis without myelopathy or radiculopathy, lumbar region Category: Medical Plan Patient has shown accountability for her medication regimen. There is no evidence of misuse, abuse or diversion at this time. [facility]PAT reviewed. Script for Morphine IR 15 mg QID with an advanced date of 11/30/24 for moderate- severe pain only. Patient reports reasonable analgesia without side effects. Reviewed with the patient the risks associated with benzodiazepine and processing analyst opioid use. Patient is aware and verbalized agreement to take the medications at least two hours apart. Patient has Narcan at home. All questions were answered and patient is in agreement of plan. Follow up in 4- 5 weeks for a pill count or sooner as needed. Medications: Refilled morphine Partial Fill upon patient request. 15 mg PO Q6H 30 days PRN 120 tabs 0RF pain, severe NS G89.4 - Chronic pain syndrome, G90.521 - Complex regional pain syndrome I of right lower limb, M47.816 - Spondylosis without myelopathy or radiculopathy, lumbar region, M51.36 - Other intervertebral disc degeneration, lumbar region Coding Level of Care Code Est Pt Level 4 (09216) Complex EM visit Add On G2211 Diagnoses Complex regional pain syndrome of right lower extremity G90.521 Chronic pain syndrome G89.4 Lumbar degenerative disc disease M51.36 manager spa (current) use of opiate analgesic Z79.891 Dorsalgia of thoracolumbar region M54.6; M54.50 Lumbar spondylosis M47.816
[2024-11-15 13:09] VITALS: BP 151/77; PULSE 94; O2SAT 96; BMI 25.9
== END 2024-11-15 13:25 | disposition home or self-care (01) ==
PROVIDERS: PCP Nurse Practitioner Family; Visit Provider Nurse Practitioner Family
DX: G90.521 Complex regional pain syndrome I of right lower limb (principal); G89.4 Chronic pain syndrome; M51.369 Other intervertebral disc degeneration, lumbar region without mention of lumbar back pain or lower extremity pain; Z79.891 Long term (current) use of opiate analgesic; M54.6 Pain in thoracic spine; M54.50 Low back pain, unspecified; M47.816 Spondylosis without myelopathy or radiculopathy, lumbar region
CPT/HCPCS: 99214; G2211

== ENCOUNTER → 2024-11-15 12:57 | Outpatient (BNVA) | payer OTHER, SELFPAY | PROVIDERS: PCP Nurse Practitioner Family; Visit Provider Nurse Practitioner Family | DX: G90.521 Complex regional pain syndrome I of right lower limb (principal); G89.4 Chronic pain syndrome; M51.360 Other intervertebral disc degeneration, lumbar region with discogenic back pain only; M47.816 Spondylosis without myelopathy or radiculopathy, lumbar region; Z51.81 Encounter for therapeutic drug level monitoring; Z79.891 Long term (current) use of opiate analgesic | CPT/HCPCS: 99212 ==

== ENCOUNTER → 2024-11-26 12:54 | Outpatient (BNVA) | payer OTHER, SELFPAY | PROVIDERS: PCP Nurse Practitioner Family; Visit Provider Nurse Practitioner Family ==

== ENCOUNTER 2024-12-20 14:04 | Outpatient (AMB) | payer OTHER, SELFPAY ==
--- NOTE | 2024-12-20 14:07 | A.OFFVIS_ITS ---
Vital Signs 12/20/24 14:16 12/20/24 14:25 Height 4 ft 11 in BP 136/87 Blood Pressure Location Rt brachial Position Sitting Sitting Respiration 18 Pulse 123 H 111 H Pulse Source Pulse Oximeter Pulse Oximeter Pulse Oximetry (%) 91 L 92 Oxygen Delivery Method Nasal Cannula Nasal Cannula Oxygen Flow Rate 2 2 Intake Visit Reasons: Pill Count Intake Note: Amna comes in today for a pill count to morphine, patient should have 40 tablets and presents with 44 tablets which she last took today 12/20/24 at 12pm. Pain today 5/10 Patient resigned opioid contract in office, signed copy of contract was given to patient. Field Sales Specialist Required: No Accompanied by: Self / Same As Patient Allergies No Known Allergies Allergy (Verified 12/20/24 14:25) HPI Comments Details: Patient presents today for a pill count. Patient is supposed to have #40 pills in her possession and presents with #44 pills. This demonstrates a responsible attitude towards her regimen. Patient reports adequate analgesia on morphine 15 mg QID prn without any side effects except occasional constipation but has not needed to take Movantik. Patient reports current medication regime allows her to be less symptomatic and more functional. She also takes gabapentin. Currently rates pain at 5/10. Patient uses supplemental O2 at 2L via nasal cannula during the day and night. She follows with [facility] for pulmonary fibrosis on 01/10/25. 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 Social History Household Members: Other Household Members Other:: Dog Housing: Condominium Do you presently have visiting nurse or other home services: No Alcohol intake: never Patient Tobacco Use Status: Former Tobacco user Tobacco use type: Cigarette Cigarettes Per Day: 1 Years Smoked: 30 e-Cigarette/Vaping Use: Never Used Second Hand Smoke Exposure: No Substance Use Type: Marijuana Advance Directives Date on File: 08/05/21 service: No Current occupational status: disabled Cognitive needs: No Hearing needs: No Vision needs: No Review of Systems Const All systems reviewed & are unremarkable except as noted in HPI and below Physical Exam Vital Signs: Last Vital Signs Pulse 123 H 12/20/24 14:16 BP 136/87 12/20/24 14:16 Pulse Ox 91 L 12/20/24 14:16 Oxygen Delivery Method Nasal Cannula 12/20/24 14:16 Oxygen Flow Rate 2 12/20/24 14:16 General: Appears afebrile. Alert and oriented. Mood and affect appropriate. Follows and participates in conversation appropriately. Respiratory effort is unlabored. No cough. Uses supplemental O2@ 2 L via nasal cannula. Able to transition from sit to stand unassisted. Uses walker with seat with ambulation. Resp Effort & Inspection: normal respiratory effort, able to speak in complete sentences, no cough and no respiratory distress Psych Appearance: grossly normal Mental Status: mental status grossly normal Speech and movement: Normal speech and movement present Affect: normal affect Attitude: cooperative Thought process: Normal thought process present Thought content: Normal thought content present, suicidality (none), no hallucinations and Depressive thoughts present Insight: Good insight present (Psych) Judgement: Good judgement present (Psych) Results Reviewed Results Reviewed: No imaging are available for review today. Assessment & Plan Assessment & Plan (1) Complex regional pain syndrome of right lower extremity: Code(s): G90.521 - Complex regional pain syndrome I of right lower limb Category: Medical (2) Chronic pain syndrome: Code(s): G89.4 - Chronic pain syndrome Category: Medical (3) Lumbar degenerative disc disease: Code(s): M51.36 - Other intervertebral disc degeneration, lumbar region Category: Medical (4) care home (current) use of opiate analgesic: Code(s): Z79.891 - care home (current) use of opiate analgesic Category: Medical (5) Lumbar spondylosis: Code(s): M47.816 - Spondylosis without myelopathy or radiculopathy, lumbar region Category: Medical Plan Patient has shown accountability for her medication regimen. There is no evidence of misuse, abuse or diversion at this time. [facility]PAT reviewed. Script for Morphine IR 15 mg QID with an advanced date of 12/30/24 for moderate- severe pain, refill was resubmitted to [facility] pharmacy as patient no longer uses [facility] pharmacy. Patient reports reasonable analgesia without side effects. Reviewed with the patient the risks associated with benzodiazepine and fpc opioid use. Patient is aware and verbalized agreement to take the medications at least two hours apart. Patient has Narcan at home. All questions were answered and patient is in agreement of plan. Follow up in 4 weeks for a pill count or sooner as needed. Medications: Changed From morphine Partial Fill upon patient request. 15 mg PO Q6H 23 days PRN 92 tabs 0RF pain, severe NS G89.4 - Chronic pain syndrome, G90.521 - Complex regional pain syndrome I of right lower limb, M47.816 - Spondylosis without myelopathy or radiculopathy, lumbar region, M51.36 - Other intervertebral disc degeneration, lumbar region To morphine Partial Fill upon patient request. 15 mg PO Q6H 30 days PRN 120 tabs 0RF pain, severe NS G89.4 - Chronic pain syndrome, G90.521 - Complex regional pain syndrome I of right lower limb, M47.816 - Spondylosis without myelopathy or radiculopathy, lumbar region, M51.36 - Other intervertebral disc degeneration, lumbar region Refilled morphine Partial Fill upon patient request. 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
[2024-12-20 14:16] VITALS: BP 136/87; PULSE 123; O2SAT 91
[2024-12-20 14:25] VITALS: PULSE 111; RESP 18; O2SAT 92
== END 2024-12-20 14:31 | disposition home or self-care (01) ==
PROVIDERS: PCP Nurse Practitioner Family; Visit Provider Nurse Practitioner Family
DX: G90.521 Complex regional pain syndrome I of right lower limb (principal); G89.4 Chronic pain syndrome; M51.369 Other intervertebral disc degeneration, lumbar region without mention of lumbar back pain or lower extremity pain; Z79.891 Long term (current) use of opiate analgesic; M47.816 Spondylosis without myelopathy or radiculopathy, lumbar region
CPT/HCPCS: 99214; G2211

== ENCOUNTER → 2024-12-20 14:04 | Outpatient (BNVA) | payer OTHER, SELFPAY | PROVIDERS: PCP Nurse Practitioner Family; Visit Provider Nurse Practitioner Family | DX: Z51.81 Encounter for therapeutic drug level monitoring (principal); G90.521 Complex regional pain syndrome I of right lower limb; M51.360 Other intervertebral disc degeneration, lumbar region with discogenic back pain only; M47.816 Spondylosis without myelopathy or radiculopathy, lumbar region; Z79.891 Long term (current) use of opiate analgesic; G89.4 Chronic pain syndrome | CPT/HCPCS: 99212 ==

== ENCOUNTER 2024-12-26 07:55 | Outpatient (AMB) | payer OTHER, SELFPAY ==
--- NOTE | 2024-12-26 07:28 | A.OFFVIS_ITS ---
Intake Visit Reasons: meds Stretch [phone] if no response Allergies No Known Allergies Allergy (Verified 12/20/24 14:25) Medication List - Last Reconciled 12/26/24 by VARSHA Fernandez- albuterol sulfate 90 mcg/actuation 1 puff PO QID PRN aspirin 81 mg PO DAILY atorvastatin 40 mg PO BEDTIME blood pressure monitor As directed buspirone 5 mg PO BID 30 days calcium carbonate-vitamin D3 600 mg-5 mcg (200 unit) 1 tab PO DAILY cholecalciferol (vitamin D3) 50 mcg PO DAILY COVID-19 antigen test As directed crutches (pair of crutches) As directed CPT E0114 docusate sodium 100 mg PO BEDTIME folic acid 1 mg PO DAILY gabapentin 800 mg (2 x 400 mg) PO QID 90 days [HurryCane As directed] Lactobac. rhamnosus GG-inulin 10 billion cell -200 mg (TipRanksSlide) 1 tab PO DAILY lactobacillus combination no.9 (Adult 50 Plus Probiotic) 4,000 mmu cells PO DAILY morphine 15 mg PO Q6H PRN 30 days NS naloxone 4 mg/actuation (Narcan) 4 mg intranasal Q2M PRN nebulizer and compressor Use every eight hours or as needed for acute shortness of breath or wheezing nitroglycerin (Nitrostat) 0.4 mg sublingual Q5MX3 PRN ondansetron 4 mg PO Q8H PRN 30 days prednisone 15 mg (3 x 5 mg) PO DAILY 30 days sodium,potassium,mag sulfates 17.5-3.13-1.6 gram (Suprep Bowel Prep Kit) DILUTE; drink 1/2 at 6-8 pm and half at 11 PM- 1AM vitamin A 1 cap PO DAILY HPI HPI FU meds Stretch [phone] if no response: Details: History of Present Illness The patient is a 64-year-old female presenting for a generalized follow-up via telehealth. The patient has a known diagnosis of Chronic Obstructive Pulmonary Disease (COPD), which has been severe, requiring continuous oxygen therapy at 2.5 liters per minute. She regularly follows up with a county library director. She reports her oxygen saturation levels are monitored with a personal pulse oximeter, typically reading around 93%. Additionally, the patient is under chronic pain management and is receiving medications including gabapentin and morphine for pain relief. She attends a pain clinic as part of her ongoing management. Fecal incontinence has been noted as a persistent issue. The patient previously used incontinence aids (Depends), which are no longer available to her, prompting a request for a refill. The patient has a history of gastrointestinal issues; however, she has not been seen by her gastrointestinal specialist in some time. It was previously addressed but requires follow-up consultation. The patient has not had a mammogram since June 2023, and she acknowledges the necessity to schedule this recommended screening. Additionally, she has been advised to undergo laboratory testing, including an assessment for vitamin D deficiency. Review of Systems - Respiratory: Reports severe COPD and use of oxygen therapy. denies any CP, increased SOB, fevers, chills, PLASCENCIA, dizziness - Gastrointestinal: Reports fecal incontinence. - General: No acute distress. Reports alertness and good judgment. Denies any new or worsening symptoms. PE a+ox3 good judgement in good spirits in no acute distress, speaking in full sentences Plan 1. - Conduct laboratory evaluations, with an emphasis on assessing vitamin D levels, as ordered.: Discussion Notes I reminded the patient of the importance of adhering to her regular follow-up appointments with her county library director for continuous COPD management and the need to consistently use her prescribed oxygen therapy. We discussed the need for maintaining adequate supplies of her incontinence aids and agreed on arranging f or necessary refills. The patient confirmed understanding of the importance of monitoring her pain management through her pain clinic visits. Regarding her gastrointestinal concerns, it was recommended she seek a consultation as soon as convenient to update and manage any outstanding issues. We addressed the necessity of obtaining her mammogram, and the patient affirmed she would arrange for this appointment promptly. Further discussions included the completion of ordered laboratory work, especially for assessing possible vitamin D deficiency. Patient Instructions - Continue using oxygen therapy as prescribed at 2.5 liters per minute. - Contact the gastrointestinal specialist to schedule a follow-up visit. - Refill and use incontinence aids (Depends) as needed. - Schedule and complete a mammogram at the earliest convenience. - Follow up on all ordered lab work, including vitamin D levels. - Maintain consistent attendance at pain clinic appointments for ongoing pain management. - Monitor oxygen levels regularly and report any significant changes. 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 Social History Household Members: Other Household Members Other:: Dog Housing: [facility] Do you presently have visiting nurse or other home services: No Alcohol intake: never Patient Tobacco Use Status: Former Tobacco user Tobacco use type: Cigarette Cigarettes Per Day: 1 Years Smoked: 30 e-Cigarette/Vaping Use: Never Used Second Hand Smoke Exposure: No Substance Use Type: Marijuana Advance Directives Date on File: 08/05/21 service: No Current occupational status: disabled Cognitive needs: No Hearing needs: No Vision needs: No Telehealth Telehealth Telehealth Platform: Virtual Telephone [employer] Telegraph Location of provider rendering services: practice address Location of patient: address on file Patient Identification confirmed using: Name, : Yes Telehealth method: video Patient verbally consented to treatment: Yes Patient verbally consented to billing insurance company: Yes Patient informed of any privacy concerns related to visit: Yes Minutes spent on Phone/Video with Pt.: 22 Assessment & Plan Assessment & Plan (1) Vitamin D deficiency: Code(s): E55.9 - Vitamin D deficiency, unspecified Category: Medical (2) ILD (interstitial lung disease): Code(s): J84.9 - Interstitial pulmonary disease, unspecified Category: Medical (3) Fecal incontinence: Code(s): R15.9 - Full incontinence of feces Category: Medical (4) Chronic pain syndrome: Code(s): G89.4 - Chronic pain syndrome Category: Medical (5) Osteoporosis: Code(s): M81.0 - Age-related osteoporosis without current pathological fracture Category: Medical Plan . Orders: Orders Complete Blood Count Auto Diff Today I10 - Essential (primary) hypertension, J84.9 - Interstitial pulmonary disease, unspecified Comprehensive Warner. Panel Fast Today I10 - Essential (primary) hypertension, J84.9 - Interstitial pulmonary disease, unspecified Lipid Panel Today I10 - Essential (primary) hypertension, J84.9 - Interstitial pulmonary disease, unspecified Vitamin D 25-OH Total Today E55.9 - Vitamin D deficiency, unspecified XR DEXA axial skeleton Today M81.0 - Age-related osteoporosis without current pathological fracture TSH reflex Free T4 Today I10 - Essential (primary) hypertension, J84.9 - Interstitial pulmonary disease, unspecified UA CC w/rflx Micro + Cult Today I10 - Essential (primary) hypertension, J84.9 - Interstitial pulmonary disease, unspecified Medications: New buspirone 5 mg PO BID 30 days 60 tabs 3RF Refilled docusate sodium 100 mg PO BEDTIME 60 caps 3RF calcium carbonate-vitamin D3 600 mg-5 mcg (200 unit) 1 tab PO DAILY 90 tabs 2RF J84.9 - Interstitial pulmonary disease, unspecified ondansetron 4 mg PO Q8H 30 days PRN 90 tabs 0RF nausea and vomiting vitamin A 1 cap PO DAILY 90 caps 0RF cholecalciferol (vitamin D3) 50 mcg PO DAILY 90 caps 3RF R79.89 - Other specified abnormal findings of blood chemistry Lactobac. rhamnosus GG-inulin 10 billion cell -200 mg ([facility]) 1 tab PO DAILY 90 tabs 1RF Coding Level of Care Code Tele Est Pt Level 4 (02172) Diagnoses Vitamin D deficiency E55.9 ILD (interstitial lung disease) J84.9 Fecal incontinence R15.9 Chronic pain syndrome G89.4 Osteoporosis M81.0
--- OUTSIDE RECORDS SUMMARY | 2024-12-26 07:58 | XMS_ITS ---
Author Organization [facility] Address [address] [place] [address] Care Team Providers Care Manager Order Name Role Phone Maximilian Henderson Primary Care Provider Oleg Lee Unavailable [phone] Allergies Allergen (clinical drug ingredient) Drug/Non Drug Allergy documented on EMR Reaction Allergy Type Onset Date Status Novacaine Unknown Drug Allergy Active Medications Medication SIG (Take, Route, Fr equency, Duration) Notes Start Date End Date Status Morphine Sulfate Act jesus Ibuprofen 600 Unknow n Losartan Potassium A ctive Amphetamine Salt Combo Unknown ALPRAZolam Unknown Ondansetron Unknown Morphine Sulfate ER Unknown Gabapentin Active predniSONE Active Social History Tobacco Use: Social History Observation Description Date Details (start date - stop date) Former Smoker NA - NA Tobacco Use/Smoking Question Answer Notes Are you a: former smoker Additional Findings: Tobacco Non-User Current no n-smoker Alcohol Screen Question Answer Notes Did you have a drink containing alcohol in the p ast year? No Points 0 Interpretation Negative Tobacco use other than smoking: Question Answer Notes Are you an other tobacco user? No Vital Signs Height 4 ft 11 in in 08/22/2024 Encounters Encounter Location Date Provider Diagnosis [facility] [address] [place] [address] 08/22/2024 Oleg Silva Plan Of Treatment No Information Progress Notes * Amna GARDNER EDOB:1960 (64 yo F)Acc No.[id number]:08/22/2024 Progress Notes Patient:?Amna GARDNER Provider:?Oleg Silva DPM :1960???Age:64 Y???Sex:Female D ate:08/22/2024 Address: [address], [id number] Pcp:RUSLAN Morse Subjective: * Chief Complaints: * ??? * ROS:?General/Constitutional:?Nausea?denies.?Vomiting?denies.?Hunger Thirst?admits.?Loss appetite?admits.?Chills?denies.?Fatigue?denies.?Fever?denies.?Night Sweats?denies.?Unexplained weight loss?denies.?Unexplained weight gain?denies.?HEENTM:?Dentures?denies.?Dizziness?denies.?Glasses/contacts?denies.?Retinopathy?de nies.?Blurred/double vision?denies.?TMJ?denies.?Discharge/drainage?denies.?Implants?denies.?Sore throat?denies.?Dental implants?denies.?Hard of hearing ?denies.?Difficulty chewing/swallowing/speaking?denies.?Nose bleeds?denies.?Sore mouth?denies.?Respiratory:?On Oxygen?denies.?Pneumonia/pleurisy?denies.?Bronchitis?denies.?Emphysema?denies.?C oughing?denies.?Cough blood?denies.?Shortness of breath?denies.?Wheezing?denies.?Cardiovascular:?Pacemaker?denies.?MVP?denies.?WPW?denies.?CHF?denies.?Heart attack?denies.?Septal defect?denies.?Rapid beat?denies.?Chest pain ?denies.?Atrial Fib.?denies.?Murmur/Palpitations?denies.?Gastrointestinal:?Hemorrhoids?denies.?Stomach/Abdominal pain?denies.?Dark blood stool?denies.?Irritable bowel ?denies.?Constipation?denies.?Diarrhea?denies.?Hematology:?Swelling?denies.?Clots?denies.?Varicose Veins?denies.?Bruising?denies.?Bleeding problem?denies.?Genitourinary:?Blood urine?denies.?Frequent/Painfu/urination/bladder control?denies.?Kidney stones?denies.?Infection (UTI)?denies.?Nephropathy?denies.?sex trans dis (STD)?denies.?Prostate?denies.?Musculoskeletal:?Hammertoes?denies.?Bunions?denies.?Back Pain?denies.?Muscle Cramps/ Resting?denies.?Muscle cramps / walking?denies.?Generalized aches and pains?denies.?Weakness?denies.?Integ.:?[place]?denies.?Scars?denies.?Corns/calluses?denies.?Ingrown nails?denies.?Painful nails?denies.?Open Sores?denies.?Rashes?denies.?Neurologic:?Difficulty sleeping?denies.?Brain disorder?denies.?Numbness?denies.?Balance trouble?denies.?Confusion?denies.?Fainting/blackouts?denies.?Tingling?denies.?Tr emors?denies.? * Medical History:?Anxiety, Ar thritis, Depression, Nerve disorder, Numbness, Osteonecrosis, Chicken pox, C-diff, Anemia, Back,Hip,and Knee pain, Heart disease, Hypertension, Lung disease. * Surgical History:? s ection x 2 , Amputation, toes, Right . * Family History:?Mother: gabino nina?Father: alive, diagnosed with Diabetic - NIDDM.?Son(s): alive, diagnosed with Unspecified essential hypertension.?Siblings: , diagnosed with Unspecified heart disease, Other specified conditions influencing health status.? * Social History:?Tobacco Use:?Tobacco Use/Smoking?Are you a:?former smoker ?Additional Findings: Tobacco Non-User?Current non-smoker ?Tobacco use other than smoking?Are you an other tobacco user??No ???Drugs/Alcohol:?Drugs?Have you used drugs other than those for medical reasons in the past 12 months??No ?Alcohol Screen?Did you have a drink containing alcohol in the past year??No ?Points?0 ?Interpretation?Negative ???Miscellaneous:?Caffeine: yes, 1-2 cups per day. ?Children: yes, 2. ?Exercise: yes, walking. ?Marital status: . ?Occupation: disabled. * Medications:?Taking Losartan Potassium , Taking predniSONE , Taking Gabapentin , Taking Morphine Sulfate , Unknown Ondansetron , Unknown Morphine Sulfate ER , Unknown Ibuprofen 600 , Unknown Amphetamine Salt Combo , Unknown ALPRAZolam * Allergies:?Novacaine. Objective: * Vitals:?Ht: 4 ft 11 in, Shoe size: 7.5, Ht-cm: 149.86 cm. Assessment: Plan: * Treatment: * Images: * The named appointment provid er may or may not be the originator of this progress note, and it is not deemed complete until electronically signed by the appointment provider. Sign off status: Pending * Provider:?Oleg Silva DPM Date:? 024 Generated for Hal morley/Zoraida/John on:?12/26/2024 07:57 AM EST
--- OUTSIDE RECORDS SUMMARY | 2024-12-26 07:58 | XMS_ITS | Data Portability ---
Author Organization [employer] Address [address] [place] [address] Care Team Providers Care Library Information Technician Name Role Phone [facility] Referring Provider Assessment Encounter Date Assessment Date Assessment LastModified by Organization Details LastModified Time 05/25/2023 05/25/2023 Ms. Amna Mcfadden is a 63yoF w/ a PmHx of osteomyleitis, HTN, chronic steroid use who is seen today for further evaluation of right sided pain. Ms. Mcfadden reports that she has had pain in her right abdomen/side from her hip up to her rib cage for the past day. Denies shortness of breath, chest pain, or pleuritic pain but is unsure of what it's from. No nausea/vomitin g. Ms. Mcfadden did not realize that she was scheduled for an in-person istED vist and denies needing instED services. She is comfortable using her home pain medication and states that the pain has improved since this morning. She will follow up with her PCP. VSS without tachycardia or hypoxemia. Primary team, Ms. Mcfadden would benefit from an evaluation of her right sided pain. [email or web address] Not available 05/25/2023 20:00:45 Plan of Treatment Reminders Order Date Submit Date Provider Last Modified By Organization Details Last Modified Time Details Appointments None record ed. Lab None record ed. Referral None record ed. Procedures None record ed. Surgeries None record ed. Imaging None record ed. Medication Orders None record ed. Patient TargetsNo targets recorded. Patient InstructionsNo instructions recorded. Reason for Referral None Reported. Medical Equipment None Reported. Medications Name Sig Start Date Stop Date Status Note LastModified by Organization Details LastModified Time losartan 50 mg tablet TAKE 1 TABLET BY MOUTH EVERY DAY active Not Available Not Available No t Available prednisone 10 mg tablet TAKE 1 TABLET BY MOUTH DAILY active Not Available Not Available Not Available senna 8.6 mg tablet TAKE 1 TABLET BY MOUTH EVERY DAY AT BEDTIME FOR CONSTIPATIO N active Not Available Not Available No t Available gabapentin 400 mg capsule TAKE 2 CAPSULES BY MOUTH FOUR TIMES DAILY active Not Available Not Available Not Available prednisone 5 mg tablet TAKE 1 TABLET BY MOUTH EVERY DAY FOR 30 DAYS active Not Available Not Available No t Available calcium 600 mg (as carbonate)-v itamin D3 5 mcg (200 unit) tablet TAKE 1 TABLET BY MOUTH EVERY DAY active Not Available Not Available No t Available dextroamphet amine-amphet amine 30 mg tablet TAKE 1 TABLET BY MOUTH THREE TIMES A DAY active Not Available Not Available Not Available prednisone 2.5 mg tablet TAKE 2 TABS DAILY FOR 3 WEEKS, THEN 1 TAB DAILY FOR 3 WEEKS active Not Available Not Available Not Available docusate sodium 100 mg capsule TAKE 1 CAPSULE BY MOUTH EVERYDAY AT BEDTIME active Not Available Not Available No t Available alprazolam 2 mg tablet TAKE 1 TABLET BY MOUTH THREE TIMES A DAY NEEDED active Not Available Not Available No t Available metoprolol succinate ER 25 mg tablet,exten ded release 24 hr TAKE 1/2 TABLET BY MOUTH DAILY active Not Available Not Available Not Available albuterol sulfate HFA 90 mcg/actuatio n aerosol inhaler INHALE 1 PUFF BY MOUTH FOUR TIMES DAILY NEEDED FOR WHEEZING active Not Available Not Available No t Available morphine 15 mg immediate release tablet TAKE 1 TABLET BY MOUTH EVERY 6 HOURS NEEDED FOR SEVERE PAIN active Not Available Not Available Not Available ondansetron 4 mg disintegrati ng tablet PLEASE SEE ATTACHED FOR DETAILED DIRECTIONS active Not Available Not Available N ot Available Fiber Therapy (methylcellu lose) 500 mg tablet TAKE 500MG ORALLY DAILY TAKE IT WITH FULL GLASS OF WATER active Not Available Not Available No t Available hydrochlorot hiazide 12.5 mg tablet TAKE 1 TABLET BY MOUTH EVERY DAY active Not Available Not Available No t Available cholecalcife rol (vitamin D3) 50 mcg (2,000 unit) capsule TAKE 1 CAPSULE BY MOUTH EVERY DAY active Not Available Not Available No t Available [facility] 10 billion cell-200 mg sprinkle capsule TAKE ONE CAPSULE BY MOUTH EVERY DAY active Not Available Not Available No t Available [employer] 10 billion cell-200 mg capsule TAKE 1 CAPSULE BY MOUTH EVERY DAY active Not Available Not Available No t Available Vitals Date Recorded Respiratory rate Heart rate Oxygen saturation Oxygen saturation in Arterial blood by Pulse oximetry Body temperature Systolic blood pressure Diastolic blood pressure Provider Name and Address Organization Details Last Updated DateTime 3 16 /min 66 /min 96 % 96 % 98.5 [degF] 124 mm[Hg] 68 mm[Hg] Not Available [facility] - production 19:56:43 Social History None recorded. Functional Status None recorded. Mental Status None recorded. Family History Nothing Reported. Medical History No medical history recorded. Gynecological HistoryNo gynecological history recorded. Obstetrics History GPAL:G 0 P 0 0 0 0 Past Encounters Encounter ID Performer Location Encounter Start Date Encounter Closed Date Diagnosis/Indication Diagnosis SNOMED-CT Code Diagnosis ICD10 Code Diagnosis Note [id number] Davida Marshall MD [facility] [address] [place] [address] 05/25/2023 19:56:41 05/26/2023 11:25:43 Right flank pain 489983113 R10.9 Health Concerns Section Related Observation LastModified by Organization Detai ls LastModified Time None Recorded Concern Status LastModified by Organization Details LastModified Time None Recorded Advance Directives Directive None Recorded Payers Encounter Date Sequence Insurance Name Policy Number Policy Henson Covered Member ID Henson Member ID Guarantor Name 05/25/2023 1 [facility] - DOS ON OR AFTER 2023 - DUAL ELIGIBLE - FDC OPTIONS AND ONE CARE (MEDICARE REPLACEMENT/ADV ANTAGE - HMO) Amna Mcfadden [id number] Amna Mcfadden Notes Date Note Type Note Provider Name and Address Organization Details Recorded Time 05/25/2023 text/html [facility] Nursing Assessment: Reason For Request: Pt concern about feeling pulling a muscle of her ride side? abdomen? not radiating? Pain has woken her up. There is no bruising, Chief Complaints: Pain PMH: Other Allergies: No Known Pain Assessment: Level 8 out of 10 Comments: Verified identity by Member c/o pain that woke her up this am, has not gone away or gotten worse . Member c/o right side, rib cage/ abd area . Member has had pain in the past from exercising but has been years. Member denies injury or any new activity . Member has not taken OTC, Member is taking pain meds for osteomyelitis, but has not taken anything in hours . Member not on blood thinner, but prednisone. Member does not have any kidney disease no changes in ................. ................. ................. ................. ................. ................. ................. ................. ..... Mineralogy Teacher Note From Eusebio Hawkins: Dispatched to the call address for the female with flank pain. Pt stated she hadn't realized she was getting a home visit. She states she just wanted to discuss the issue with a nurse and when she realized someone was coming she was going to cancel but I arrived prior to her being able to do that. Pt states she feels like she has a pulled muscle that starts in her upper right hip/thigh that goes up to the bottom of her rib on lateral side. She states it was worse this morning. She advises that she doesn't want anything for pain as she already takes morphine Q8/PRN. Pt denies SoB or chest pain. Pt was found opening door, CAOx4, airway open and patent, breathing non labored, able to speak in full sentences, -JVD, -HEENT, skin PWD with good turgor, abd soft non tender, -crepitus/deformi ties/bruising noted on area of complaint. Pt was able to walk with ease. pupils PWD, +CMSx4, strong and regular radial pulses. [facility] consulted. Red flags discussed. ALL times are approx. ................. ................. ................. ................. ................. ................. ................. ................. ..... Disposition: Fulfilled Davida Marshall MD [address] [facility],[address], [place], [address], [facility] [employer] 05/25/2023 20:01:39 OBGyn Episode No OBEpisode recorded.
--- OUTSIDE RECORDS SUMMARY | 2024-12-26 07:58 | XMS_ITS | Patient Health Record ---
Author Organization [facility] Address [address] [place] [address] Care Team Providers Care Hand Plate Stacker Name Role Phone Maximilian Henderson Primary Care Provider Oleg Lee Unavailable [phone] Allergies Allergen (clinical drug ingredient) Drug/Non Drug Allergy documented on EMR Reaction Allergy Type Onset Date Status Novacaine Unknown Drug Allergy Active Reason For Referral No Information Medications Medication SIG (Take, Route, Fr equency, Duration) Notes Start Date End Date Status Morphine Sulfate Act jesus Ibuprofen 600 Unknow n Ondansetron Unknown Morphine Sulfate ER Unknown Gabapentin Active Losartan Potassium A ctive predniSONE Active Amphetamine Salt Combo Unknown ALPRAZolam Unknown Social History Tobacco Use: Social History Observation [...] Are you an other tobacco user? No Problems Problem Type SNOMED Code ICD Code Onset Dates Problem Status W/U Status Risk Notes Problem Atherosclerosis of nikolski arteries of the extremities ([id number]) Unspecified atherosclerosis of nikolski arteries of extremities, bilateral legs (I70.203) Active confirmed Encounters Encounter Location Date Provider Diagnosis [facility] [address] [place] [address] 08/22/2024 Oleg Silva [facility] [address] [place] [address] 07/20/2024 Oleg Silva Plan Of Treatment No Information Insurance Providers Payer Name Payer Address Payer Phone Subscriber Number Group Number Insured Name Patient Relationship to Insured Coverage Start Date Coverage End Date [facility] Claims [address] [place] [phone] [id number] Amna Gardner Self - patient is the insured Medical (General) History Medical History History ICD Code Anxiety Arthritis Depression nerve disorder Numbness osteonecrosis Chicken pox C-diff Anemia Back,Hip,and Knee pain Heart disease Hypertension Lung disease Surgical History Surgery Date(Month/Year) section x 2 1988/1990 Amputation, toes, Right
--- OUTSIDE RECORDS SUMMARY | 2024-12-26 07:58 | XMS_ITS | Clinical Summary ---
Author Organization [facility] Address [address] [place] [address] Care Team Providers Care Bindery Supervisor Name Role Phone Tata Baptiste DO Primary Care Provider + Surgical History Surgery Date Site/Laterality Comments SECTION 1988 PROCEDURE: SECTION SECTION 1990 PROCEDURE: SECTION FOOT AMPUTATION THROUGH METATARSAL Right PROCEDURE:FOOT AMPUTATION THROUGH METATARSAL;COMMENT:18 months Medical History Medical History Date Comments Burn DX:Burn Diarrhea DX:Diarrhea Osteonecrosis due to previou s trauma, right foot (CMS/HCC) DX:Osteonecrosis due to prev ious trauma, right foot (HCC);COMMENT:age 18 month Severe mccrary Rt foot required multi surgeries and s/p partial amputation ADHD (attention deficit hype ractivity disorder) DX:ADHD (attention deficit hyperactivity disorder);COMMENT:Hellen Sifuentes [place] Tobacco abuse DX:Tobacco abuse ;COMMENT:20 years 1 ppd now 3 cig/day Chronic narcotic use DX:Chronic narcotic use History of colonoscopy 11/2012 DX:Histor y of colonoscopy;COMMENT:Hyperplastic polyp Dr Gandhi History of tobacco abuse DX:Hist ory of tobacco abuse;COMMENT:20 yrs x 1ppd now 3 cig/day Peripheral neuropathy DX:Periphe ral neuropathy Obesity DX:Obesity Depression DX:Depression Neck pain DX:Neck pain;COM MENT:2010 MRI-C mild DDD C5-6, HNP T7-8 Dr Youngblood Osteoarthritis DX:Osteoarthriti s;COMMENT:Rt Hand first carpometacarpal joint Low back pain DX:Low back pain Needle stick injury of finger 06/2017 DX :Needle stick injury of finger;COMMENT:Received HIV postexposure History of Clostridium diffi cile colitis 08/2017 DX:History of Clostridium di fficile colitis Family history of early CAD DX:F amily history of early CAD;COMMENT:Brother [place] age 40 HNP (herniated nucleus pulpo cyndy), thoracic DX:HNP (herniated nucleus pu lposus), thoracic;COMMENT:T 07-06 Dr Youngblood GERD (gastroesophageal reflux disease) DX:GERD (gastroesophageal reflux disease) Chronic pain syndrome DX:Chronic pain syndrome;COMMENT:Rt lower limb Complex regional pain syndrome D X:Complex regional pain syndrome Reflex sympathetic dystrophy DX: Reflex sympathetic dystrophy Screening for breast cancer DX:S creening for breast cancer;COMMENT:mammo: 12/20/2016 neg, Screening for cervical cancer DX :Screening for cervical cancer;COMMENT:PAP: 12/20/2016: neg Nephrolithiasis DX:Nephrolithias is;COMMENT:04/2019 CT: 3mm nonobs calculus lower pole Lt kidney Anemia DX:Anemia Dilation of common bile duct 03/2019 DX: Dilation of common bile duct;COMMENT:Dilatation of the CBD ( distal 10.2 mm) and intrahepatic biliary tree of unclear etiology. Screening for colon cancer DX:Sc reening for colon cancer Common bile duct dilatation DX:C mario bile duct dilatation;COMMENT:pancreatic duct and the common bile duct were dilated to approximately 4.9 mm in the head of the pancreas, The common bile duct is dilated to 10.2 mm Pancreatic cyst DX:Pancreatic cy st;COMMENT:06/2019 MRI- Intraductal papillary mucinous tumor repeat MRI in Summer 2019 IBS (irritable bowel syndrome) D X:IBS (irritable bowel syndrome);COMMENT:C alt with D Chronic idiopathic constipation DX:Chronic idiopathic constipation Low back pain DX:Low back pain ;COMMENT:07/2019 Xray- mild scoliosis, deg changes facet arthritis Family History Medical History Relation Name Comments Heart disease Brother [place] Drug abuse Father Hypertension Father Heart disease Maternal Grandfather Heart disease Maternal Grandmother Hypertension Mother Macular degeneration Mother Heart disease Paternal Grandfather Heart disease Paternal Grandmother Cerebral aneurysm Sister 1 Relation Name Status Comments Brother Father Alive Maternal Grandfather Maternal Grandmother Mother Alive Paternal Grandfather Paternal Grandmother Sister 1 Alive age 50 Sister 2 Alive Social History Tobacco Use Types Packs/Day Years Used Date Smoking Tobacco: Heavy Smoker Cigarettes 0.5 24.9 Started: 01/25/2000 Smokeless Tobacco: Never Alcohol Use Standard Drinks/Week Comments No 0 (1 standard drink = 0.6 oz pur e alcohol) Sex and Gender Information Value Date Recorded Sex Assigned at Not on file Gender Identity Not on file Sexual Orientation Not on file Obstetrics History Plan of Treatment Health Maintenance Due Date Last Done Comments Breast Cancer Screening 1960 Pneumococcal Vaccine: Pediat rics (0 to 5 Years) and At-Risk Patients (6 to 64 Years) (1 of 2 - PCV) 1968 Cervical Cancer Screening: P ap Smear 1983 Zoster Vaccines (1 of 2) 2012 RSV Immunization Patients 60 + Years Old (1 - Risk 60-74 years 1-dose series) 2022 Colorectal Cancer Screening: Colonoscopy 10/31/2022 Depression Screening 10/31/2022 HIV Screening 10/31/2022 Hepatitis C Screening 10/31/2022 Social Influencers of Health Screening 10/31/2022 COVID-19 Vaccine (1 - 2023-2 5 season) 2024 Influenza Vaccine (#1) 2024 DTaP,Tdap,and Td Vaccines (2 - Td or Tdap) 08/04/2027 08/04/2017 HIB Vaccines Aged Out No longer eligi ble based on patient's age to complete this topic HPV Vaccines Aged Out No longer eligi ble based on patient's age to complete this topic Hepatitis A Vaccines Aged Out No long er eligible based on patient's age to complete this topic Hepatitis B Vaccines Aged Out No long er eligible based on patient's age to complete this topic IPV Vaccines Aged Out No longer eligi ble based on patient's age to complete this topic MMR Vaccines Aged Out No longer eligi ble based on patient's age to complete this topic Meningococcal ACWY Vaccine Aged Out N o longer eligible based on patient's age to complete this topic RSV Immunization Patients Un chepe 20 months Aged Out No longer eligible b ased on patient's age to complete this topic Varicella Vaccines Aged Out No longer eligible based on patient's age to complete this topic Care Teams Bindery Supervisor Relationship Specialty Start Date End Date Tata Baptiste DO 2 ON LICENSE OF [facility] [address] [place] [address] PCP - General Family Medicine 01/05/18
--- OUTSIDE RECORDS SUMMARY | 2024-12-26 07:58 | XMS_ITS | Clinical Summary ---
Author Organization [facility] Address [address] [place] [address] Care Team Providers Care Supervising Bailiff Name Role Phone Tata Baptiste DO Primary Care Provider Allergies Active Allergy Reactions Criticality Noted Date Comments Lidocaine Swelling,Rash Medium 10/03/2017 Medications Medication Sig Dispensed Refills Start Date End Date Status amphetamine-dextroamp hetamine (ADDERALL) 30 MG tablet 1 tablet 3 (three) times a day. 0 01/20/2018 Active ALPRAZolam (XANAX) 2 MG tablet TAKE 1 TABLET BY MOUTH 3 TIMES A DAY 5 11/10/2017 Active ondansetron (ZOFRAN-ODT) 4 MG disintegrating tablet DISSOLVE 1 TABLET BY MOUTH UNDER THE TONGUE THREE TIMES DAILY 60 tablet 1 12/04/2020 Active docusate sodium (COLACE) 100 MG capsule Take 1 capsule (100 mg total) by mouth every night at bedtime as needed for constipation. 90 capsule 1 12/04/2020 Active morphine (MSIR) 30 MG tabletIndications:Chr onic pain syndrome Take 1 tablet (30 mg total) by mouth 2 (two) times a day as needed for pain. 60 tablet 0 01/29/2021 Active ibuprofen (ADVIL,MOTRIN) 600 MG tablet TK 1 T PO Q 8 H PRF PAIN FOR UP TO 30 DAYS 90 tablet 1 02/09/2021 Active Morphine Sulfate ER (MS CONTIN) 30 MG TBCRIndications:Chron ic pain syndrome Take 1 tablet (30 mg total) by mouth every 12 (twelve) hours. 60 tablet 0 03/02/2021 Active gabapentin (NEURONTIN) 400 MG capsule TAKE 2 CAPSULES BY MOUTH THREE TIMES DAILY AND 1 CAPSULE AT BEDTIME 210 capsule 5 07/06/2021 Active Active Problems Problem Noted Date Diagnosed Date Mild intermittent asthma without complication Tobacco abuse 03/23/2018 ADHD (attention deficit hyperactivity disorder) Overview: Hellen Sifuentes [place] Chronic narcotic use Resolved Problems Problem Noted Date Diagnosed Date Resolved Date History of Clostridium difficile colitis 03/23/2018 04/08/2020 Breast cancer screening 03/23/201803/28 Need for hepatitis C screening test 03/23/2018 04/08/2020 Xerosis of skin 01/25/2018 04/08/2020 Osteonecrosis due to previou s trauma, right foot 04/08/2020 Overview: age 18 month C. difficile colitis 018 Overview: 2017 Diarrhea 04/25/2019 Immunizations Name Administration Dates Next Due Tdap 08/04/2017 Family History Medical History Relation Name Comments Heart disease Brother [place] Drug abuse Father Hypertension Father Heart disease Maternal Grandfather Heart disease Maternal Grandmother Hypertension Mother Macular degeneration Mother Heart disease Paternal Grandfather Heart disease Paternal Grandmother Cerebral aneurysm Sister 2 Relation Name Status Comments Brother Father Alive Maternal Grandfather Maternal Grandmother Mother Alive Paternal Grandfather Paternal Grandmother Sister 1 Alive Sister 2 Alive age 50 Social History Tobacco Use Types Packs/Day Years Used Date Smoking Tobacco: Heavy Smoker Cigarettes 0.5 20 Started: 01/25/2000 Smokeless Tobacco: Never Tobacco Cessation:Ready to Q uit: No; Counseling Given: No Alcohol Use Standard Drinks/Week Comments No 0 (1 standard drink = 0.6 oz pur e alcohol) Sex and Gender Information Value Date Recorded Sex Assigned at Female 03/26/2019 11:27 AM EDT Gender Identity Female 03/26/2019 11:27 AM EDT Sexual Orientation Not on file Last Filed Vital Signs Vital Sign Reading Time Taken Comments Blood Pressure 140/84 12/04/2020 1:04 PM EST Pulse 104 12/04/2020 1:04 PM EST Temperature 36.2 ??C (97.2 ??F) 12/04/2020 1:04 PM ES T Respiratory Rate 18 12/04/2020 1:04 PM EST Oxygen Saturation 91% 12/04/2020 1:04 PM EST Inhaled Oxygen Concentration - - Weight 69.2 kg (152 lb 9.6 oz) 12/04/2020 1:04 P M EST Height 149.9 cm (4' 11 ) 12/04/2020 1:04 PM EST Body Mass Index 30.82 12/04/2020 1:04 PM EST Plan of Treatment Health Maintenance Due Date Last Done Comments COVID-19 Vaccine (#1) 1962 Pneumococcal Vaccine (1 of 2 - PCV) 1968 Shingrix-Zoster Vaccine (1 of 2) 2012 Breast Cancer Screening (Mammogram) 12/20/2018 12/20/2016 Cervical Cancer Screening (Pap Smear) 12/20/2019 12/20/2016 Depression Screening 04/25/2020 04/25/2019, 03/23/20 Preventative Health Evaluation 04/25/2020 04/25/2019, 04/25/2019 Tobacco Cessation Counseling 04/25/2020 04/25/2019 BMI Counseling 12/04/2021 12/04/2020, 02, 08/06/2019, Additional history exists Colon Cancer Screening (Colonoscopy) 12/27/2022 12/27/2012 Influenza Vaccine (#1) 2024 DTap / Tdap / Td (2 - Td or Tdap) 08/04/2027 08/04/2017 RSV Adult > 60+ Yrs or (1 - 1-dose 75+ series) 2037 Hepatitis C Screening Completed 05/29/2018 Hepatitis B Vaccines Aged Out No long er eligible based on patient's age to complete this topic RSV Ped < 20 months Aged Out No longe r eligible based on patient's age to complete this topic Care Teams Supervising Bailiff Relationship Specialty Start Date End Date Tata Baptiste DO PCP - General Family Medicine 01/05/18
--- OUTSIDE RECORDS SUMMARY | 2024-12-26 07:58 | XMS_ITS ---
Author Organization [facility] Address [address] [place] [address] Care Team Providers Care Senior Abap Developer Name Role Phone Maximilian Henderson Primary Care Provider Unav ailable Oleg Silva [phone] REASON FOR VISIT ON pt No Show Encounters Encounter Location Date Provider Diagnosis [facility] [address] [place] [address] 08/22/2024 Oleg Silva Plan Of Treatment No Information Progress Notes * Amna GARDNER EDOB:1960 (64 yo F)Acc No.[id number]:08/22/2024 Patient:?JASMIN Amna Sterling :1960???Age:64 Y???Sex:Female Address:[address] [place], [place], [address] * * Date:?
== END 2024-12-26 10:11 | disposition home or self-care (01) ==
LOC: HO.HMCC 07:55
PROVIDERS: PCP Nurse Practitioner Family; Visit Provider Nurse Practitioner Family
DX: E55.9 Vitamin D deficiency, unspecified (principal); J84.9 Interstitial pulmonary disease, unspecified; R15.9 Full incontinence of feces; G89.4 Chronic pain syndrome; M81.0 Age-related osteoporosis without current pathological fracture

== ENCOUNTER 2025-01-18 12:42 | Outpatient (AMB) | payer OTHER, SELFPAY ==
[2025-01-18 12:59] VITALS: BP 108/58; PULSE 98; O2SAT 95; BMI 28.5
--- NOTE | 2025-01-18 12:59 | MHC.OFFVIS ---
Vital Signs 01/18/25 12:59 Height 4 ft 11 in Weight 141 lb BMI 28.5 BP 108/58 L Blood Pressure Location Rt brachial Position Sitting Pulse 98 Pulse Source Doppler Pulse Oximetry (%) 95 Oxygen Delivery Method Nasal Cannula Oxygen Flow Rate 2 Intake Visit Reasons: miri Allergies No Known Allergies Allergy (Verified 01/18/25 14:17) HPI HPI miri: Details: 64-year-old lady with underlying congestive heart failure followed for interstitial lung disease, pulmonary nodules, and MIRI.?Her prior CT chest showed fibrosis and increasing had right sided pulmonary nodule.? Her PET scan showed no FDG activity in the nodule. Patient had several follow-up CT chest that shows stability of underlying findings. Her symptoms previously well controlled on prednisone 5 mg daily and calcium/vitamin-D, though recently she had to increase her prednisone to 10 mg daily. She denies any recent exacerbations. She uses supplemental oxygen up to 2 L to maintain normal oximetry. Her follow-up CT chest showed stable findings. She has been complain of worsening rhinitis symptoms. [facility] Medical History ILD (interstitial lung disease) Osteomyelitis Lymphadenopathy, mediastinal Respiratory failure Chest pain Congestive heart failure (CHF) Chronic pain syndrome terminal carman (current) use of opiate analgesic Complex regional pain syndrome of right lower extremity Scoliosis Chronic idiopathic constipation IBS (irritable bowel syndrome) ADHD Anxiety Depression Constipation 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 Social History Household Members: Other Household Members Other:: Dog Housing: Condominium Do you presently have visiting nurse or other home services: No Alcohol intake: never Patient Tobacco Use Status: Former Tobacco user Tobacco use type: Cigarette Cigarettes Per Day: 1 Years Smoked: 30 e-Cigarette/Vaping Use: Never Used Second Hand Smoke Exposure: No Substance Use Type: Marijuana Advance Directives Date on File: 08/05/21 service: No Current occupational status: disabled Cognitive needs: No Hearing needs: No Vision needs: No Review of Systems Const Denies daytime sleepiness, Denies excessive sweating, Denies fatigue, Denies fever(s), Denies lethargy, Denies malaise, Denies night sweats, Denies snoring and Denies weight loss Eyes Denies blurry vision and Denies itchy eyes ENT Denies nasal congestion, Denies post nasal drip, Denies sinus pain, Denies sinus pressure and Denies other ( Thrush) Card Denies chest pain, Denies pedal edema, Denies dyspnea, Denies orthopnea and Denies paroxysmal nocturnal dyspnea Resp Reports cough, Denies hemoptysis, Denies excessive phlegm production, Denies dyspnea, Denies snoring and Denies wheezing GI Denies abdominal pain and Denies heartburn Musc Denies myalgias, Denies arthralgias and Denies joint swelling Skin/Breast Denies rash Neuro Denies memory loss and Denies seizure-like activity Psych Denies abnormal sleep pattern, Denies anxiety and Denies memory loss Endo Denies excessive sweating, Denies fatigue and Denies heat intolerance Demian/Lymph Denies easy bruising Aller/Immun Denies itchy eyes, Denies seasonal rhinorrhea and Denies wheezing Physical Exam Vital Signs: Last Vital Signs Pulse 98 01/18/25 12:59 BP 108/58 L 01/18/25 12:59 Pulse Ox 95 01/18/25 12:59 Oxygen Delivery Method Nasal Cannula 01/18/25 12:59 Oxygen Flow Rate 2 01/18/25 12:59 BMI result Body Mass Index 28.5 Const General: no acute distress and alert Nutritional Appearance: not obese Orientation/consciousness: Other orientation findings ( oriented) HEENT Head: Yes atraumatic Eyes General: appearance normal, both eyes and all related structures Sclerae: sclerae normal EOM: EOMs intact bilaterally Neck Neck: Yes supple Lymphatic: no lymphadenopathy noted Resp Effort & Inspection: normal respiratory effort and no use of accessory muscles Auscultation: clear to auscultation bilaterally Cardio Rate: regular rate Rhythm: regular rhythm Heart sounds: no gallops, no murmurs and no rubs Skin General skin exam: other ( warm) Extrem General: No clubbing, No cyanosis and No edema Office Procedures Nebulizer Treatment Nebulizer Treatment [id number]/MDI RX initial, or Nebulizer Subsequent Treatment Office Meds ipratropium 0.5 mg-albuterol 3 mg (2.5 mg base)/3 mL nebulization jose Performing Provider: Corwin South MD Performing Location: [facility] Administered by: Bina Wills LPN on 01/18/25 13:28 Dose Route Admin Location Dispensed Lot Number Expiration Date NDC Rn Lactation Consultant 3 mL inhalation 3 mL [id number] 02/25/26 16773-847-51 [employer] Assessment & Plan Assessment & Plan (1) ILD (interstitial lung disease): Code(s): J84.9 - Interstitial pulmonary disease, unspecified Category: Medical Plan: Results of surveillance CT chest reviewed, slowly progressive UIP/IPF. Continue on prednisone 15 mg daily. (2) Supplemental oxygen dependent: Code(s): Z99.81 - Dependence on supplemental oxygen Category: Medical Plan: Continue supplemental oxygen to maintain O2 saturation above 88%. (3) Environmental allergies: Code(s): Z91.09 - Other allergy status, other than to drugs and biological substances Category: Medical Plan: Will obtain IgE level, CBC with differential and RAST panel for further evaluation. Orders: Orders Complete Blood Count Auto Diff Today Z91.09 - Other allergy status, other than to drugs and biological substances AMB Nebulizer Treatment Today J84.9 - Interstitial pulmonary disease, unspecified Resp Allergy Profile Region I Today Z91.09 - Other allergy status, other than to drugs and biological substances Coding Level of Care Code Est Pt Level 4 (73888) Diagnoses ILD (interstitial lung disease) J84.9 Supplemental oxygen dependent Z99.81 Environmental allergies Z91.09 CPT Codes Nebulizer Treatment - Nebulizer Treatment, initial or subsequent: [id number]/MDI RX initial, or Nebulizer Subsequent Treatment ([id number])
--- OUTSIDE RECORDS SUMMARY | 2025-01-18 13:13 | XMS_ITS ---
Author Organization [facility] Address [address] [place] [address] Care Team Providers Care Crib Tender Name Role Phone Maximilian Henderson Primary Care Provider Unav ailable Oleg Silva [phone] REASON FOR VISIT MOLD YARD WORKER PPWK Entered Encounters Encounter Location Date Provider Diagnosis [facility] [address] [place] [address] 07/20/2024 Oleg Silva Plan Of Treatment No Information Progress Notes * Amna GARDNER EDOB:1960 (64 yo F)Acc No.[id number]:07/20/2024 Patient:?Amna Gardner :1960???Age:64 Y???Sex:Female Address:[address], [address] [place] [address], [place], [address] * true * Date:? Generated for Printi peyman/Zoraida/eTransmitting on:?01/18/2025 01:13 PM EST
--- OUTSIDE RECORDS SUMMARY | 2025-01-18 13:14 | XMS_ITS ---
Author Organization [facility] Address [address] [place] [address] Care Team Providers Care Carton Making Machinist Name Role Phone Maximilian Henderson Primary Care Provider Oleg Lee Unavailable [phone] Allergies Allergen (clinical drug ingredient) Drug/Non Drug [...] Date Provider Diagnosis [facility] [address] [place] [address] 08/22/2024 Oleg Silva Plan Of Treatment No Information Progress Notes * Amna GARDNER EDOB:1960 (64 yo F)Acc No.[id number]:08/22/2024 Progress Notes Patient:?Amna GARDNER Provider:?Oleg Silva DPM :1960???Age:64 Y???Sex:Female D ate:08/22/2024 Address: [address], [id number] Pcp:RUSLAN Morse Subjective: * Chief Complaints: * [...] DPM Date:? 024 Generated for Hal morley/Zoraida/John on:?01/18/2025 01:13 PM EST
--- OUTSIDE RECORDS SUMMARY | 2025-01-18 13:14 | XMS_ITS ---
Author Organization [facility] Address [address] [place] [address] Care Team Providers Care Mounter Clarinets Name Role Phone Maximilian Henderson Primary Care Provider Unav ailable Oleg Silva [phone] REASON FOR VISIT ON pt No Show Encounters Encounter Location Date Provider Diagnosis [facility] [address] [place] [address] 08/22/2024 Oleg Silva Plan Of Treatment No Information Progress Notes * Amna GARDNER EDOB:1960 (64 yo F)Acc No.[id number]:08/22/2024 Patient:?JASMIN Amna Sterling :1960???Age:64 Y???Sex:Female Address:[address], [place], [address] * * Date:?
--- OUTSIDE RECORDS SUMMARY | 2025-01-18 13:14 | XMS_ITS | Data Portability ---
Author Organization [facility] Address [address] [place] [address] Care Team Providers Care Can Feeder Name Role Phone [facility] Referring Provider Assessment Encounter Date [...] SNOMED-CT Code Diagnosis ICD10 Code Diagnosis Note [id number] Davida Marshall MD Main - [facility] [address] [place] [address] 05/25/2023 19:56:41 05/26/2023 11:25:43 Right flank pain [id number] R10.9 Health Concerns Section Related Observation LastModified by Organization Detai ls LastModified Time None Recorded Concern Status LastModified by Organization Details LastModified Time None Recorded Advance Directives Directive None Recorded Payers Encounter Date Sequence Insurance Name Policy Number Policy Henson Covered Member ID Henson Member ID Guarantor Name 05/25/2023 1 [facility] - DOS ON OR AFTER 2023 - DUAL ELIGIBLE - [employer] OPTIONS AND ONE CARE (MEDICARE REPLACEMENT/ADV ANTAGE - HMO) Amna Mcfadden [id number] Amna Mcfadden Notes Date Note Type Note [...] ................. ................. ................. ................. ................. ................. ..... Zinc Chloride Operator Note From Eusebio Hawkins: Dispatched to the [...] ..... Disposition: Fulfilled Davida Marshall MD [address] [facility], [place], [address], [employer] 05/25/2023 20:01:39 OBGyn Episode No OBEpisode recorded.
--- OUTSIDE RECORDS SUMMARY | 2025-01-18 13:14 | XMS_ITS | Clinical Summary ---
Author Organization [facility] Address [address] [place] [address] Care Team Providers Care Veterinary Laboratory Diagnostician Name Role Phone Tata Baptiste DO Primary [...] disorder) DX:ADHD (attention deficit hyperactivity disorder);COMMENT:Hellen Sifuentes [place] Tobacco abuse DX:Tobacco abuse ;COMMENT:20 years 1 [...] CAD DX:F amily history of early CAD;COMMENT:Brother [place] age 40 HNP (herniated nucleus pulpo cyndy), [...] History Relation Name Comments Heart disease Brother [place] Drug abuse Father Hypertension Father Heart disease [...] Date Smoking Tobacco: Heavy Smoker Cigarettes 0.5 25 Started: 01/25/2000 Smokeless Tobacco: Never Alcohol Use Standard Drinks/Week Comments No 0 (1 standard drink = 0.6 oz pur e alcohol) Comments Unknown Sex and Gender Information Value Date Recorded Sex Assigned at Not on file Legal Sex Female 2:19 AM EST Gender Identity Not on file Sexual Orientation Not on file Obstetrics History Plan of Treatment Health Maintenance Due Date Last Done Comments Breast Cancer Screening 1960 Pneumococcal Vaccine: 50+ Ye ars (1 of 2 - PCV) 1981 Pneumococcal Vaccine: Pediat rics (0 to 5 Years) and At-Risk Patients (6 to 64 Years) (1 of 2 - PCV) 1981 Cervical Cancer Screening: P ap Smear 1983 [...] patient's age to complete this topic Meningococcal B Vacine Aged Out No lo nger eligible based on patient's age to complete this topic RSV Immunization Patients Un chepe 20 months Aged Out No longer eligible b ased on patient's age to complete this topic Varicella Vaccines Aged Out No longer eligible based on patient's age to complete this topic Care Teams Veterinary Laboratory Diagnostician Relationship Specialty Start Date End Date Tata Baptiste DO 2 [facility] [address] [place] [address] PCP - General Family Medicine 01/05/18
--- OUTSIDE RECORDS SUMMARY | 2025-01-18 13:14 | XMS_ITS | Clinical Summary ---
Author Organization [facility] Address [address] [place] [address] Care Team Providers Care International Accounting Manager Name Role Phone Tata Baptiste DO Primary [...] (attention deficit hyperactivity disorder) Overview: Hellen Sifuentes [place] Chronic narcotic use Resolved Problems Problem Noted [...] age to complete this topic Care Teams International Accounting Manager Relationship Specialty Start Date End Date Tata Baptiste DO PCP - General Family Medicine 01/05/18
--- OUTSIDE RECORDS SUMMARY | 2025-01-18 13:14 | XMS_ITS | Patient Health Record ---
Author Organization [facility] Address [address] [place] [address] Care Team Providers Care Pecan Mallow Dipper Name Role Phone Maximilian Henderson Primary Care Provider Oleg Lee Unavailable [phone] Allergies Allergen (clinical drug ingredient) Drug/Non Drug [...] W/U Status Risk Notes Problem Atherosclerosis of [place] arteries of the extremities (355813618663050) Unspecified atherosclerosis of [place] arteries of extremities, bilateral legs (I70.203) Active confirmed Encounters Encounter Location Date Provider Diagnosis [facility] [address] [place] [address] 08/22/2024 Oleg Silva [facility] [address] [place] [address] 07/20/2024 Olge Silva Plan Of Treatment No Information Insurance Providers Payer Name Payer Address Payer Phone Subscriber Number Group Number Insured Name Patient Relationship to Insured Coverage Start Date Coverage End Date [facility] SCO Claims [address] [place] [phone] [id number] Amna Gardner Self - patient is the insured Medical (General) History Medical History History ICD Code Anxiety Arthritis Depression nerve disorder Numbness osteonecrosis Chicken pox C-diff Anemia Back,Hip,and Knee pain Heart disease Hypertension Lung disease Surgical History Surgery Date(Month/Year) section x 2 1988/1990 Amputation, toes, Right
== END 2025-01-18 15:04 | disposition home or self-care (01) ==
PROVIDERS: PCP Nurse Practitioner Family; Visit Provider Internal Medicine Pulmonary Disease
DX: J84.9 Interstitial pulmonary disease, unspecified (principal); Z99.81 Dependence on supplemental oxygen; Z91.09 Other allergy status, other than to drugs and biological substances
CPT/HCPCS: 99214

== ENCOUNTER → 2025-01-18 12:42 | Outpatient (BNVA) | payer OTHER, SELFPAY | PROVIDERS: PCP Nurse Practitioner Family; Visit Provider Internal Medicine Pulmonary Disease | DX: Z51.81 Encounter for therapeutic drug level monitoring (principal); G90.521 Complex regional pain syndrome I of right lower limb; M51.360 Other intervertebral disc degeneration, lumbar region with discogenic back pain only; M47.816 Spondylosis without myelopathy or radiculopathy, lumbar region; G89.4 Chronic pain syndrome; Z79.891 Long term (current) use of opiate analgesic; J84.9 Interstitial pulmonary disease, unspecified; Z91.09 Other allergy status, other than to drugs and biological substances; Z99.81 Dependence on supplemental oxygen | CPT/HCPCS: 94640; 99212 ==

== ENCOUNTER 2025-01-18 14:02 | Outpatient (AMB) | payer OTHER, SELFPAY ==
--- NOTE | 2025-01-18 14:08 | A.OFFVIS_ITS ---
Vital Signs 01/18/25 14:16 Height 4 ft 11 in Weight 141 lb BMI 28.5 BP 136/80 Blood Pressure Location Lt brachial Position Sitting Pulse 103 H Pulse Source Pulse Oximeter Pulse Oximetry (%) 91 L Oxygen Delivery Method Nasal Cannula Oxygen Flow Rate 2 Intake Visit Reasons: PILL COUNT Intake Note: Amna comes in today for a pill count to morphine, patient should have 40 tablets and presents with 46 tablets which she last took today 01/18/25 at 12:30pm. Pain today 03/07 Sales Center Manager Required: No Accompanied by: Self / Same As Patient Allergies No Known Allergies Allergy (Verified 01/18/25 14:17) HPI Comments Details: Patient presents today for a pill count. Patient is supposed to have #40 pills in her possession and presents with #46 pills. This demonstrates a responsible attitude towards her regimen. Patient reports adequate analgesia on morphine 15 mg QID prn without any side effects except occasional constipation. Patient reports current medication regime allows her to be less symptomatic and more functional. She also takes gabapentin. Currently rates pain 03/07. Patient uses supplemental O2 at 2L via nasal cannula during the day and night. She follows with [facility] for pulmonary fibrosis and had follow up visit there today and received nebulizer treatment prior to this visit. She plans to undergo Allergen testing. 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 Social History Household Members: Other Household Members Other:: Dog Housing: Condominium Do you presently have visiting nurse or other home services: No Alcohol intake: never Patient Tobacco Use Status: Former Tobacco user Tobacco use type: Cigarette Cigarettes Per Day: 1 Years Smoked: 30 e-Cigarette/Vaping Use: Never Used Second Hand Smoke Exposure: No Substance Use Type: Marijuana Advance Directives Date on File: 08/05/21 service: No Current occupational status: disabled Cognitive needs: No Hearing needs: No Vision needs: No Review of Systems Const All systems reviewed & are unremarkable except as noted in HPI and below Physical Exam General: Appears afebrile. Alert and oriented. Mood and affect appropriate. Follows and participates in conversation appropriately. Respiratory effort is unlabored. No cough. Uses supplemental O2@ 2 L via nasal cannula. Able to transition from sit to stand unassisted. Uses walker with seat with ambulation. Resp Effort & Inspection: normal respiratory effort, able to speak in complete sentences, Actively coughing Quality: productive, no respiratory distress and symmetric chest movement Psych Appearance: grossly normal and well kempt Mental Status: mental status grossly normal Speech and movement: Normal speech and movement present and Clear speech present Affect: normal affect Attitude: cooperative Thought process: Normal thought process present Thought content: Normal thought content present, suicidality (none), no hallucinations and Depressive thoughts present Insight: Good insight present (Psych) Judgement: Good judgement present (Psych) Results Reviewed Results Reviewed: XR THORACOLUMBAR SPINE 01/03/23 FINDINGS: There is bony demineralization. Vertebral body heights are normal. There is a mild lower thoracic dextroscoliosis. There is mild degenerative disc disease at T8-T9, and moderate degenerative disc disease seen at T11-T12 and T12-L1. The remaining thoracic disc spaces are relatively well-maintained. No acute fracture or spondylolisthesis is seen. There is mild thoracic spondylosis. The posterior elements are intact. The paravertebral soft tissues are unremarkable. IMPRESSION: 1. There is a mild lower thoracic dextroscoliosis. 2. There is mild degenerative disc disease at T8-T9, and moderate degenerative disease is seen at T11-T12 and T12-L1. XR LUMBOSACRAL SPINE 01/03/23 COMPARISON: Radiographs dated 08/09/2019 TECHNIQUE: AP, bilateral oblique and lateral (neutral, flexion and extension) views of the lumbar spine and lateral view of the lumbosacral junction. FINDINGS: There is bony demineralization. There is a mild lumbar levoscoliosis. Vertebral body heights are normal. At L1-L2, there is a 4 mm retrolisthesis. The remaining disc spaces are relatively well-maintained. No acute fracture or spondylolisthesis is seen. There is no instability with flexion or extension. The posterior elements are intact. No spondylolysis defect is seen. There is multi-level lumbar facet arthropathy. The paravertebral soft tissues are unremarkable. There are aortoiliac atherosclerotic calcifications. IMPRESSION: 1. There is moderate degenerative disc disease at L1-L2. 2. No acute fracture or spondylolisthesis is seen. 3. There is multi-level lumbar facet arthropathy. 4. There is a mild lumbar levoscoliosis. Assessment & Plan Assessment & Plan (1) Complex regional pain syndrome of right lower extremity: Code(s): G90.521 - Complex regional pain syndrome I of right lower limb Category: Medical (2) Chronic pain syndrome: Code(s): G89.4 - Chronic pain syndrome Category: Medical (3) Lumbar degenerative disc disease: Code(s): M51.36 - Other intervertebral disc degeneration, lumbar region Category: Medical (4) [facility] (current) use of opiate analgesic: Code(s): Z79.891 - exterminator helper (current) use of opiate analgesic Category: Medical (5) Lumbar spondylosis: Code(s): M47.816 - Spondylosis without myelopathy or radiculopathy, lumbar region Category: Medical Plan Patient has shown accountability for her medication regimen. There is no evidence of misuse, abuse or diversion at this time. [facility] Script for Morphine IR 15 mg QID with an advanced date of 01/26/25 for moderate- severe pain. Patient reports reasonable analgesia without side effects except occasional constipation. She is seeing GI services and plans to trial Relistor. Reviewed with the patient the risks associated with benzodiazepine and fdc opioid use. Patient is aware and verbalized agreement to take the medications at least two hours apart. Patient has Narcan at home. All questions were answered and patient is in agreement of plan. Follow up in 4 weeks for a pill count or sooner as needed. Medications: Refilled 2 morphine Partial Fill upon patient request. 15 mg PO Q6H 30 days PRN 120 tabs 0RF pain, severe NS G89.4 - Chronic pain syndrome, G90.521 - Complex regional pain syndrome I of right lower limb, M47.816 - Spondylosis without myelopathy or radiculopathy, lumbar region, M51.36 - Other intervertebral disc degeneration, lumbar region Coding Level of Care Code Est Pt Level 4 (80756) Complex EM visit Add On G2211 Diagnoses Complex regional pain syndrome of right lower extremity G90.521 Chronic pain syndrome G89.4 Lumbar degenerative disc disease M51.36 exterminator helper (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
[2025-01-18 14:16] VITALS: BP 136/80; PULSE 103; O2SAT 91; BMI 28.5
--- OUTSIDE RECORDS SUMMARY | 2025-01-18 14:31 | XMS_ITS | Clinical Summary ---
Author Organization [facility] Address [address] [place] [address] Care Team Providers Care Arterial Embalmer Name Role Phone Tata Baptiste DO Primary [...] disorder) DX:ADHD (attention deficit hyperactivity disorder);COMMENT:Hellen Sifuentes [place] Tobacco abuse DX:Tobacco abuse ;COMMENT:20 years 1 [...] CAD DX:F amily history of early CAD;COMMENT:Brother [place] age 40 HNP (herniated nucleus pulpo cyndy), [...] History Relation Name Comments Heart disease Brother [place] Drug abuse Father Hypertension Father Heart disease [...] age to complete this topic Care Teams Arterial Embalmer Relationship Specialty Start Date End Date Tata Baptiste DO 2 [facility] 2 [place] [address] PCP - General Family Medicine 01/05/18
--- OUTSIDE RECORDS SUMMARY | 2025-01-18 14:31 | XMS_ITS | Clinical Summary ---
Author Organization [facility] Address [address] [place] [address] Care Team Providers Care Terra Cotta Mason Name Role Phone Tata Baptiste DO Primary [...] (attention deficit hyperactivity disorder) Overview: Hellen Sifuentes [place] [facility] Chronic narcotic use Resolved Problems Problem Noted [...] History Relation Name Comments Heart disease Brother [place] Drug abuse Father Hypertension Father Heart disease [...] age to complete this topic Care Teams Terra Cotta Mason Relationship Specialty Start Date End Date Tata Baptiste DO PCP - General Family Medicine 01/05/18
== END 2025-01-18 14:24 | disposition home or self-care (01) ==
PROVIDERS: PCP Nurse Practitioner Family; Visit Provider Nurse Practitioner Family
DX: G90.521 Complex regional pain syndrome I of right lower limb (principal); G89.4 Chronic pain syndrome; M51.369 Other intervertebral disc degeneration, lumbar region without mention of lumbar back pain or lower extremity pain; Z79.891 Long term (current) use of opiate analgesic; M47.816 Spondylosis without myelopathy or radiculopathy, lumbar region
CPT/HCPCS: 99214; G2211

== ENCOUNTER 2025-02-01 13:10 | Outpatient (REF) | payer OTHER, SELFPAY ==
--- NOTE | ~2025-02-01 | MM_ITS ---
EXAMINATION: DXA BONE DENSITY AXIAL HISTORY: Estrogen deficiency TECHNIQUE: [employer] Dual energy absorptiometry (DEXA) of the lumbar spine, total left hip, and femoral neck was performed. COMPARISON: There are no prior studies for comparison. FINDINGS: The bone mineral density of the lumbar spine is 0.981 with a T-score of -1.7, and a Z-score of -0.1. The bone mineral density of the left total hip is 0.819 with a T-score of -1.5, and a Z-score of -0.3. The bone mineral density of the left femoral neck is 0.824 with a T-score of -1.5, and a Z-score of -0.1. FRACTURE RISK: The FRAX index suggests a risk of major osteoporotic fracture of 13.9%, and of hip fracture 1.6%. MM/XR DEXA axial skeleton IMPRESSION: Based on bone mineral density, and according to World Health Organization (WHO) criteria, the diagnosis is consistent with osteopenia. All bone density values are in grams per centimeter squared (g/cm2). Statistically, 68% of repeat scans fall within 1 SD (+/- 0.010 g/cm2 for AP spine L1-L4) and 1 SD (+/- 0.012 g/cm2 for femur total) FRAX is a trademark of the [employer]'s [place] for Metabolic Bone Disease, a World Health Organization (WHO) Collaborating Center. Electronically signed by: Michele Joseph MD 02/01/2025 02:53 PM [facility]
--- OUTSIDE RECORDS SUMMARY | 2025-02-01 14:48 | XMS_ITS ---
Author Organization [facility] Address [address] [place] [address] Care Team Providers Care Dressed Poultry Grader Name Role Phone Maximilian Henderson Primary Care Provider Unav ailable Oleg Silva [phone] REASON FOR VISIT HEEL ATTACHER PPWK Entered Encounters Encounter Location Date Provider Diagnosis [facility] [address] [place] [address] 07/20/2024 Oleg Silva Plan Of Treatment No Information Progress Notes * Amna GARDNER EDOB:1960 (64 yo F)Acc No.[id number]:07/20/2024 Patient:?Amna Gardner :1960???Age:64 Y???Sex:Female Address:[address], [address], [place], [address] * true * Date:? Generated for Printi peyman/Zoraida/eTransmitting on:?02/01/2025 02:48 PM EST
--- OUTSIDE RECORDS SUMMARY | 2025-02-01 14:48 | XMS_ITS ---
Author Organization [facility] Address [address] [place] [address] Care Team Providers Care Travel Med Surg Rn Name Role Phone Maximilian Henderson Primary Care Provider Oleg Lee Unavailable [phone] Allergies Allergen (clinical drug ingredient) Drug/Non Drug [...] 08/22/2024 Encounters Encounter Location Date Provider Diagnosis [facility] [address] [place] [address] 08/22/2024 Oleg Silva Plan Of Treatment No Information Progress Notes * Amna GARDNER EDOB:1960 (64 yo F)Acc No.[id number]:08/22/2024 Progress Notes Patient:?Amna GARDNER Provider:?Oleg Silva DPM :1960???Age:64 Y???Sex:Female D ate:08/22/2024 Address[address], [place] Pcp:RUSLAN Morse Subjective: * Chief Complaints: * [...] DPM Date:? 024 Generated for Hal morley/Zoraida/John on:?02/01/2025 02:48 PM EST
--- OUTSIDE RECORDS SUMMARY | 2025-02-01 14:49 | XMS_ITS | Clinical Summary ---
Author Organization [facility] Address [address] [place] [address] Care Team Providers Care Cutter Aluminum Sheet Name Role Phone Tata Baptiste DO Primary [...] disorder) DX:ADHD (attention deficit hyperactivity disorder);COMMENT:Hellen Sifuentes [place] Tobacco abuse DX:Tobacco abuse ;COMMENT:20 years 1 [...] CAD DX:F amily history of early CAD;COMMENT:Brother [place] age 40 HNP (herniated nucleus pulpo cyndy), [...] History Relation Name Comments Heart disease Brother [place] Drug abuse Father Hypertension Father Heart disease [...] age to complete this topic Care Teams Cutter Aluminum Sheet Relationship Specialty Start Date End Date Tata Baptiste DO 2 [facility] [address] [place] [address] PCP - General Family Medicine 01/05/18
--- OUTSIDE RECORDS SUMMARY | 2025-02-01 14:49 | XMS_ITS | Patient Health Record ---
Author Organization [facility] Address [address] [place] [address] Care Team Providers Care Manager Camp Name Role Phone Maximilian Henderson Primary Care Provider Oleg Lee Unavailable [phone] Allergies Allergen (clinical drug ingredient) Drug/Non Drug [...] W/U Status Risk Notes Problem Atherosclerosis of [place] arteries of the extremities (341297207630960) Unspecified atherosclerosis of [place] arteries of extremities, bilateral legs (I70.203) Active confirmed Encounters Encounter Location Date Provider Diagnosis [facility] [address] [place] [address] 08/22/2024 Oleg Silva [facility] [address] [place] [address] 07/20/2024 Oleg Silva Plan Of Treatment No Information Insurance Providers Payer Name Payer Address Payer Phone Subscriber Number Group Number Insured Name Patient Relationship to Insured Coverage Start Date Coverage End Date [facility] SCO Claims [address] [place] [phone] [id number] Amna Gardner Self - patient is the insured Medical (General) History Medical History History ICD Code Anxiety Arthritis Depression nerve disorder Numbness osteonecrosis Chicken pox C-diff Anemia Back,Hip,and Knee pain Heart disease Hypertension Lung disease Surgical History Surgery Date(Month/Year) section x 2 1988/1990 Amputation, toes, Right
--- OUTSIDE RECORDS SUMMARY | 2025-02-01 14:49 | XMS_ITS | Clinical Summary ---
Author Organization [facility] Address [address] [place] [address] Care Team Providers Care Supervisor Gluing Name Role Phone Tata Baptiste DO Primary Care Provider [phone] Allergies Active Allergy Reactions Criticality Noted Date [...] (attention deficit hyperactivity disorder) Overview: Hellen Sifuentes [place] Chronic narcotic use Resolved Problems Problem Noted [...] History Relation Name Comments Heart disease Brother [place] Drug abuse Father Hypertension Father Heart disease [...] age to complete this topic Care Teams Supervisor Gluing Relationship Specialty Start Date End Date Tata Baptiste DO PCP - General Family Medicine 01/05/18
--- OUTSIDE RECORDS SUMMARY | 2025-02-01 14:49 | XMS_ITS ---
Author Organization [facility] Address [address] [place] [address] Care Team Providers Care Custom Motorcycle Painter Name Role Phone Maximilian Henderson Primary Care Provider Unav ailable Oleg Silva [phone] REASON FOR VISIT ON pt No Show Encounters Encounter Location Date Provider Diagnosis [facility] [address] [place] [address] 08/22/2024 Oleg Silva Plan Of Treatment No Information Progress Notes * Amna GARDNER EDOB:1960 (64 yo F)Acc No.[id number]:08/22/2024 Patient:?JASMIN Amna Sterling :1960???Age:64 Y???Sex:Female Address[address], [place], [address] * * Date:?
--- OUTSIDE RECORDS SUMMARY | 2025-02-01 14:49 | XMS_ITS | Data Portability ---
Author Organization [facility] [place] [place] [facility] Address [address] [place] [address] Care Team Providers Care Vehicle Sales Professional Name Role Phone [facility] Referring Provider Assessment [...] SNOMED-CT Code Diagnosis ICD10 Code Diagnosis Note [id number] Davida Marshall MD [address] - [facility] [address] [place] [address] 05/25/2023 19:56:41 05/26/2023 11:25:43 Right flank pain [id number] R10.9 Health Concerns Section Related Observation LastModified by Organization Detai ls LastModified Time None Recorded Concern Status LastModified by Organization Details LastModified Time None Recorded Advance Directives Directive None Recorded Payers Encounter Date Sequence Insurance Name Policy Number Policy Henson Covered Member ID Henson Member ID Guarantor Name 05/25/2023 1 [facility] - DOS ON OR AFTER 2023 - DUAL ELIGIBLE - [facility] OPTIONS AND ONE CARE (MEDICARE REPLACEMENT/ADV ANTAGE - HMO) Amna Mcfadden [id number] Amna Mcfadden Notes Date Note Type Note [...] ................. ................. ................. ................. ................. ................. ..... Continuous Miner Operator Note From Eusebio Hawkins: Dispatched to [...] ..... Disposition: Fulfilled Davida Marshall MD [address] [facility],[address], [place], [address], [employer] 05/25/2023 20:01:39 OBGyn Episode No OBEpisode recorded.
== END 2025-02-01 13:11 | disposition home or self-care (01) ==
LOC: HO.MAMMO 13:10
PROVIDERS: PCP Nurse Practitioner Family; Visit Provider Nurse Practitioner Family
DX: Z12.31 Encounter for screening mammogram for malignant neoplasm of breast (principal); M81.0 Age-related osteoporosis without current pathological fracture
CPT/HCPCS: 77063; 77067; 77080

== ENCOUNTER → 2025-02-01 13:30 | Outpatient (BNV) | payer OTHER, SELFPAY | PROVIDERS: PCP Nurse Practitioner Family; Visit Provider Radiology Diagnostic Radiology | DX: Z12.31 Encounter for screening mammogram for malignant neoplasm of breast (principal) | CPT/HCPCS: 77063; 77067 ==

== ENCOUNTER 2025-03-13 09:11 | Outpatient (REF) | payer OTHER, SELFPAY ==
--- NOTE | ~2025-03-13 | XR_ITS ---
EXAMINATION: XR CHEST 2 VIEWS HISTORY: R05.9 - Cough, unspecified COMPARISON: Comparison is made with the prior examination dated 07/17/2024. FINDINGS: PA and lateral views of the chest are submitted. Again seen are diffuse fibrotic changes in both lungs. No focal airspace opacity is seen. There is no pleural effusion, pneumothorax, or pulmonary vascular congestion. The heart is normal in size. There is degenerative disc disease of the spine. XR/XR chest 2V IMPRESSION: Pulmonary fibrosis. Electronically signed by: Michele Joseph MD 03/13/2025 10:45 AM EDT
--- OUTSIDE RECORDS SUMMARY | 2025-03-13 11:52 | XMS_ITS | Clinical Summary ---
Author Organization [facility] Address [address] [place] [address] Care Team Providers Care Network Director Name Role Phone Tata Baptiste DO Primary [...] (attention deficit hyperactivity disorder) Overview: Hellen Sifuentes [place] Chronic narcotic use Resolved Problems Problem Noted [...] age to complete this topic Care Teams Network Director Relationship Specialty Start Date End Date Tata Baptiste DO PCP - General Family Medicine 01/05/18
--- OUTSIDE RECORDS SUMMARY | 2025-03-13 11:52 | XMS_ITS | Data Portability ---
Author Organization [employer] [facility] [employer] Address [address] [place] [address] Care Team Providers Care Crown Ironer Operator Name Role Phone [facility] Referring Provider [phone] Assessment Encounter Date Assessment Date Assessment LastModified [...] SNOMED-CT Code Diagnosis ICD10 Code Diagnosis Note [id number] Davida Marshall MD Main - instED [address] [place] [address] 05/25/2023 19:56:41 05/26/2023 11:25:43 Right flank pain [id number] R10.9 Health Concerns Section Related Observation LastModified by Organization Detai ls LastModified Time None Recorded Concern Status LastModified by Organization Details LastModified Time None Recorded Advance Directives Directive None Recorded Payers Encounter Date Sequence Insurance Name Policy Number Policy Henson Covered Member ID Henson Member ID Guarantor Name 05/25/2023 1 [facility] - DOS ON OR AFTER 2023 - DUAL ELIGIBLE - PRISON OPTIONS AND ONE CARE (MEDICARE REPLACEMENT/ADV ANTAGE - HMO) Amna Mcfadden [id number] Amna Mcfadden Notes Date Note Type Note [...] ................. ................. ................. ................. ................. ................. ..... Oil Expeller Note From Eusebio Hawkins: Dispatched to the [...] ..... Disposition: Fulfilled Davida Marshall MD [address] [facility],[address], [place], [address], [address] [employer] 05/25/2023 20:01:39 OBGyn Episode No OBEpisode recorded.
--- OUTSIDE RECORDS SUMMARY | 2025-03-13 11:52 | XMS_ITS | Clinical Summary ---
Author Organization [facility] Address [address] [place] [address] Care Team Providers Care Job Printer Name Role Phone Tata Baptiste DO Primary [...] disorder) DX:ADHD (attention deficit hyperactivity disorder);COMMENT:Hellen Sifuentes [place] Tobacco abuse DX:Tobacco abuse ;COMMENT:20 years 1 [...] CAD DX:F amily history of early CAD;COMMENT:Brother [place] age 40 HNP (herniated nucleus pulpo cyndy), [...] History Relation Name Comments Heart disease Brother [place] Drug abuse Father Hypertension Father Heart disease [...] age to complete this topic Care Teams Job Printer Relationship Specialty Start Date End Date Tata Baptiste DO [address] [facility] [address] [place] [address] PCP - General Family Medicine 01/05/18
== END 2025-03-13 09:12 | disposition home or self-care (01) ==
LOC: HO.HMGCX 09:11
PROVIDERS: PCP Nurse Practitioner Family; Visit Provider Physician Assistant
DX: R05.9 Cough, unspecified (principal); R07.81 Pleurodynia; Z20.828 Contact with and (suspected) exposure to other viral communicable diseases
CPT/HCPCS: 71046; 99212

== ENCOUNTER 2025-03-13 09:11 | Outpatient (AMB) | payer OTHER, SELFPAY ==
--- NOTE | 2025-03-13 09:28 | AM.OFFWIN_ITS ---
Intake Vital Signs 03/13/25 09:33 Weight 130 lb BP 122/84 Blood Pressure Location Lt brachial Position Sitting Pulse 80 Pulse Source Pulse Oximeter Pulse Oximetry (%) 91 L Oxygen Delivery Method Nasal Cannula Oxygen Flow Rate 2 Intake Visit Reasons: EP-lt side ribs pain Intake Note: Patient here for left sided rib pain that has been present for about 1 week now and has been worsening. no know falls or injuries. Patient Tobacco Use Status: Former Tobacco user Allergies No Known Allergies Allergy (Verified 03/13/25 09:31) HPI HPI Comments History of Present Illness Details History of Present Illness - The patient is a 64 year old female pr esenting with pain of left lower ribs. - Describes the pain as aggravated by de ep breathing and notes it has worsened over the past week. - Has a history of pulmonary fibrosis, r aising concerns about possible respiratory complications. denies aspiration or choking event. - No recent trauma reported, she dismiss es recollections of the pain being linked to any recent physical impact. - Possible influenza exposure is noted d ue to recent contact with a symptomatic family member. Denies cough or other URI symptoms beyond baseline cough and sob. - No fever, choking, or aspiratory event s have been reported. Physical Exam General: Cooperative, healthy appearing, comfortable, no acute distress and well developed Orientation: Patient oriented x3 Limitations: No limitations Head: Normal to inspection Ears: Hearing grossly normal bilaterally Nose: Normal External nose present Face and sinus: Normal facial exam Eyes: Appearance normal, both eyes and all related structures Neck: Normal visual inspection and Yes full ROM Chest: TTP T7 left midclavicular line Respiratory: Normal respiratory effort and able to speak in complete sentences. Clear to auscultation bilaterally Lung sounds present in all areas. Cardiovascular: Regular rate and rhythm. Normal S1 and S2. 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 Social History Household Members: Other Household Members Other:: Dog Housing: Condominium Do you presently have visiting nurse or other home services: No Alcohol intake: never Patient Tobacco Use Status: Former Tobacco user Tobacco use type: Cigarette Cigarettes Per Day: 1 Years Smoked: 30 e-Cigarette/Vaping Use: Never Used Second Hand Smoke Exposure: No Substance Use Type: Marijuana Advance Directives Date on File: 08/05/21 service: No Current occupational status: disabled Cognitive needs: No Hearing needs: No Vision needs: No Review of Systems Const All systems reviewed & are unremarkable except as noted in HPI and below Physical Exam Vital Signs: Last Vital Signs Pulse 80 03/13/25 09:33 BP 122/84 03/13/25 09:33 Pulse Ox 91 L 03/13/25 09:33 Oxygen Delivery Method Nasal Cannula 03/13/25 09:33 Assessment & Plan Assessment & Plan (1) Rib pain on left side: Code(s): R07.81 - Pleurodynia Plan: Oxygen saturation levels are consistent with her baseline measurements indicating stable pulmonary function. A chest X-ray is advised to further investigate rib pain and evaluate potential complications related to the patient's pulmonary fibrosis. Given the pain's aggravation upon inhalation and PE consistent with costochondritis, this remains a primary consideration. Follow-up care for pulmonary status will be directed by her primary care provider with collaborative oversight. Patient was informed and verbally consented to the use of an ambient scribe for clinic note documentation during this visit. (2) Exposure to influenza: Code(s): Z20.828 - Contact with and (suspected) exposure to other viral communicable diseases Plan: I have prescribed Tamiflu due to recent exposure to an individual with flu symptoms, and I have instructed the patient to initiate the medication if flu symptoms develop. Consistent communication with her primary care physician regarding influenza testing was recommended, contingent upon symptom development . Orders: Orders XR chest 2V Today R05.9 - Cough, unspecified Medications: New oseltamivir (Tamiflu) 75 mg PO Q12H 5 days 10 caps 0RF Coding Level of Care Code Est Pt Level 4 (14706) Diagnoses Rib pain on left side R07.81 Exposure to influenza Z20.828
[2025-03-13 09:33] VITALS: BP 122/84; PULSE 80; O2SAT 91
--- OUTSIDE RECORDS SUMMARY | 2025-03-13 09:56 | XMS_ITS | Clinical Summary ---
Author Organization [facility] Address [address] [place] [address] Care Team Providers Care Cost And Sales Record Supervisor Name Role Phone Tata Baptiste DO Primary Care Provider [phone] Allergies Active Allergy Reactions Criticality Noted Date [...] (attention deficit hyperactivity disorder) Overview: Hellen Sifuentes [place] Chronic narcotic use Resolved Problems Problem Noted [...] History Relation Name Comments Heart disease Brother [place] Drug abuse Father Hypertension Father Heart disease [...] age to complete this topic Care Teams Cost And Sales Record Supervisor Relationship Specialty Start Date End Date Tata Baptiste DO PCP - General Family Medicine 01/05/18
--- OUTSIDE RECORDS SUMMARY | 2025-03-13 09:56 | XMS_ITS | Clinical Summary ---
Author Organization [facility] Address [address] [place] [address] Care Team Providers Care Bath Steward Name Role Phone Tata Baptiste DO Primary Care Provider + Surgical History Surgery Date Site/Laterality Comments SECTION 1988 PROCEDURE: SECTION SECTION 1990 PROCEDURE: SECTION FOOT AMPUTATION THROUGH METATARSAL Right PROCEDURE:FOOT AMPUTATION THROUGH METATARSAL;COMMENT:18 months Medical History Medical History Date Comments Burn DX:Burn Diarrhea DX:Diarrhea Osteonecrosis due to previou s trauma, right foot (CMS/HCC V24, CMS/HCC V28) DX:Osteonecrosis due to previous trauma, right foot (HCC);COMMENT:age 18 month Severe mccrary Rt foot required multi surgeries and s/p partial amputation ADHD (attention deficit hype ractivity disorder) DX:ADHD (attention deficit hyperactivity disorder);COMMENT:Hellen Sifuentes [place] Tobacco abuse DX:Tobacco abuse ;COMMENT:20 years 1 [...] CAD DX:F amily history of early CAD;COMMENT:Brother [place] age 40 HNP (herniated nucleus pulpo cyndy), [...] colon cancer Common bile duct dilatation DX:C ommon bile duct dilatation;COMMENT:pancreatic duct and the common [...] History Relation Name Comments Heart disease Brother [place] Drug abuse Father Hypertension Father Heart disease [...] Date Smoking Tobacco: Heavy Smoker Cigarettes 0.5 25.1 Started: 01/25/2000 Smokeless Tobacco: Never Alcohol Use [...] Vaccines (1 of 2) 2012 RSV Immunization Adult Patie nts (1 - Risk 60-74 years 1-dose series) 2022 Colorectal Cancer Screening: Colonoscopy 10/31/2022 Depression Screening 10/31/2022 HIV Screening 10/31/2022 Hepatitis C Screening 10/31/2022 Social Influencers of Health Screening 10/31/2022 COVID-19 Vaccine (1 - 2023-2 5 season) 2024 Influenza Vaccine (Season Ended) 2025 DTaP,Tdap,and Td Vaccines (2 - Td or [...] age to complete this topic Meningococcal B Vaccine Aged Out No l onger eligible based on patient's age to complete this topic RSV Immunization Patients Un chepe 20 months Aged Out No longer eligible b ased on patient's age to complete this topic Varicella Vaccines Aged Out No longer eligible based on patient's age to complete this topic Care Teams Bath Steward Relationship Specialty Start Date End Date Tata Baptiste DO [address] [facility] [address] [place] [address] PCP - General Family Medicine 01/05/18
== END 2025-03-13 10:20 | disposition home or self-care (01) ==
PROVIDERS: PCP Nurse Practitioner Family; Visit Provider Physician Assistant
DX: R07.81 Pleurodynia (principal); Z20.828 Contact with and (suspected) exposure to other viral communicable diseases

== ENCOUNTER → 2025-03-13 10:18 | Outpatient (BNV) | payer OTHER, SELFPAY | PROVIDERS: PCP Nurse Practitioner Family; Visit Provider Radiology Diagnostic Radiology | DX: J84.10 Pulmonary fibrosis, unspecified (principal) | CPT/HCPCS: 71046 ==

== ENCOUNTER 2025-03-15 14:18 | Outpatient (AMB) | payer OTHER, SELFPAY ==
[2025-03-15 14:35] VITALS: BP 158/90; PULSE 112; O2SAT 92; BMI 29.7
--- NOTE | 2025-03-15 14:35 | A.OFFVIS_ITS ---
Vital Signs 03/15/25 14:35 Height 4 ft 11 in Weight 147 lb BMI 29.7 BP 158/90 H Blood Pressure Location Rt brachial Position Sitting Pulse 112 H Pulse Source Pulse Oximeter Pulse Oximetry (%) 92 Oxygen Delivery Method Nasal Cannula Oxygen Flow Rate 2 Intake Visit Reasons: Pill count Travel Trailer Components Assembler Required: No Allergies No Known Allergies Allergy (Verified 03/15/25 14:36) Medication List - Last Reconciled 03/15/25 by Alee Hurtado, LIFE SKILLS COORDINATOR albuterol sulfate 90 mcg/actuation 1 puff PO QID PRN aspirin 81 mg PO DAILY blood pressure monitor As directed calcium carbonate-vitamin D3 600 mg-5 mcg (200 unit) 1 tab PO DAILY cholecalciferol (vitamin D3) 50 mcg PO DAILY COVID-19 antigen test As directed crutches (pair of crutches) As directed CPT E0114 diaper,brief,adult,disposable (Fitted Briefs Large) Disposable pull up briefs for fecal incontinence, uses 2 per day disposable gloves (Disposable Latex-Free Gloves) Disposable gloves, size medium, for incontinence care docusate sodium 100 mg PO BEDTIME folic acid 1 mg PO DAILY gabapentin 800 mg (2 x 400 mg) PO QID 90 days [HurryCane As directed] ipratropium-albuterol 0.5 mg-3 mg(2.5 mg base)/3 mL 3 mL inhalation Q4-6H PRN Lactobac. rhamnosus GG-inulin 10 billion cell -200 mg ([facility] [employer] [facility]) 1 tab PO DAILY lactobacillus combination no.9 (Adult 50 Plus Probiotic) 4,000 mmu cells PO DAILY miscellaneous medical supply Disposable wipes, for fecal incontinence, uses 4 per day morphine 15 mg PO Q6H PRN 30 days NS naloxone 4 mg/actuation (Narcan) 4 mg intranasal Q2M PRN nebulizer and compressor Use every eight hours or as needed for acute shortness of breath or wheezing nitroglycerin (Nitrostat) 0.4 mg sublingual Q5MX3 PRN ondansetron 4 mg PO Q8H PRN 30 days oseltamivir (Tamiflu) 75 mg PO Q12H 5 days prednisone 15 mg (3 x 5 mg) PO DAILY 30 days vitamin A 1 cap PO DAILY HPI Comments Details: Patient presents today for a pill count. Patient is supposed to have #44 pills in her possession and presents with #47 pills. This demonstrates a responsible attitude towards her regimen. Patient reports adequate analgesia on morphine 15 mg QID prn without any side effects except occasional constipation. Patient reports current medication regime allows her to be less symptomatic and more functional. She also takes gabapentin. Currently rates pain 7/10. Patient uses supplemental O2 at 2L via nasal cannula during the day and night. She follows with [facility] for pulmonary fibrosis. Patient reports recent exposure to flu and developed left rib pain. She was seen at our Walk-In clinic on 03/13/25 and underwent chest xray which showed no acute findings, and consistent with pulmonary fibrosis. Patient is looking forward to spend time with her family on Tuesday. I also wished her a Happy Birthday today! 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 Social History Household Members: Other Household Members Other:: Dog Housing: Condominium Do you presently have visiting nurse or other home services: No Alcohol intake: never Patient Tobacco Use Status: Former Tobacco user Tobacco use type: Cigarette Cigarettes Per Day: 1 Years Smoked: 30 e-Cigarette/Vaping Use: Never Used Second Hand Smoke Exposure: No Substance Use Type: Marijuana Advance Directives Date on File: 08/05/21 service: No Current occupational status: disabled Cognitive needs: No Hearing needs: No Vision needs: No Review of Systems Const All systems reviewed & are unremarkable except as noted in HPI and below Physical Exam Vital Signs: Last Vital Signs Pulse 112 H 03/15/25 14:35 BP 158/90 H 03/15/25 14:35 Pulse Ox 92 03/15/25 14:35 Oxygen Delivery Method Nasal Cannula 03/15/25 14:35 Oxygen Flow Rate 2 03/15/25 14:35 BMI result Body Mass Index 29.7 General: Appears afebrile. Alert and oriented. Mood and affect appropriate. Follows and participates in conversation appropriately. Respiratory effort is unlabored. No cough. Uses supplemental O2@ 2 L via nasal cannula. Able to transition from sit to stand unassisted. Uses walker with seat with ambulation. Resp Effort & Inspection: normal respiratory effort, able to speak in complete sentences, Actively coughing Quality: productive, no respiratory distress and symmetric chest movement Psych Appearance: grossly normal and well kempt Mental Status: mental status grossly normal Speech and movement: Normal speech and movement present and Clear speech present Affect: normal affect Attitude: cooperative Thought process: Normal thought process present Thought content: Normal thought content present, suicidality (none), no hallucinations and Depressive thoughts present Insight: Good insight present (Psych) Judgement: Good judgement present (Psych) Assessment & Plan Assessment & Plan (1) Complex regional pain syndrome of right lower extremity: Code(s): G90.521 - Complex regional pain syndrome I of right lower limb Category: Medical (2) Chronic pain syndrome: Code(s): G89.4 - Chronic pain syndrome Category: Medical (3) Lumbar degenerative disc disease: Code(s): M51.36 - Other intervertebral disc degeneration, lumbar region Category: Medical (4) senior care (current) use of opiate analgesic: Code(s): Z79.891 - senior care (current) use of opiate analgesic Category: Medical (5) Lumbar spondylosis: Code(s): M47.816 - Spondylosis without myelopathy or radiculopathy, lumbar region Category: Medical Plan Patient has shown accountability for her medication regimen. There is no evidence of misuse, abuse or diversion at this time. MassPAT reviewed. Script for Morphine IR 15 mg QID with an advanced date of 03/26/25 for moderate- severe pain. Patient reports reasonable analgesia without side effects except occasional constipation. Reviewed with the patient the risks associated with benzodiazepine and retirement opioid use. Patient is aware and verbalized agreement to take the medications at least two hours apart. Patient has Narcan at home. All questions were answered and patient is in agreement of plan. Follow up in 4 weeks for a pill count or sooner as needed. Medications: Refilled morphine Partial Fill upon patient request. 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
--- OUTSIDE RECORDS SUMMARY | 2025-03-15 14:37 | XMS_ITS | Clinical Summary ---
Author Organization [facility] Address [address] [place] [address] Care Team Providers Care Consumer Lender Name Role Phone Tata Baptiste DO Primary [...] disorder) DX:ADHD (attention deficit hyperactivity disorder);COMMENT:Hellen Sifuentes [place] Tobacco abuse DX:Tobacco abuse ;COMMENT:20 years 1 [...] CAD DX:F amily history of early CAD;COMMENT:Brother [place] age 40 HNP (herniated nucleus pulpo cyndy), [...] History Relation Name Comments Heart disease Brother [place] Drug abuse Father Hypertension Father Heart disease [...] age to complete this topic Care Teams Consumer Lender Relationship Specialty Start Date End Date Tata Baptiste DO 2 [facility] [address] [place] [address] PCP - General Family Medicine 01/05/18
--- OUTSIDE RECORDS SUMMARY | 2025-03-15 14:37 | XMS_ITS | Data Portability ---
Author Organization [employer] Address [address] [place] [address] Care Team Providers Care Manager Multicultural Name Role Phone [facility] Referring Provider Assessment Encounter [...] SNOMED-CT Code Diagnosis ICD10 Code Diagnosis Note [id number] Davida Marshall MD Main - instED [address] [place] [address] 05/25/2023 19:56:41 05/26/2023 11:25:43 Right flank pain [id number] R10.9 Health Concerns Section Related Observation LastModified by Organization Detai ls LastModified Time None Recorded Concern Status LastModified by Organization Details LastModified Time None Recorded Advance Directives Directive None Recorded Payers Encounter Date Sequence Insurance Name Policy Number Policy Henson Covered Member ID Henson Member ID Guarantor Name 05/25/2023 1 [facility] - DOS ON OR AFTER 2023 - DUAL ELIGIBLE - RETIREMENT OPTIONS AND ONE CARE (MEDICARE REPLACEMENT/ADV ANTAGE - HMO) Amna Mcfadden [id number] Amna Mcfadden Notes Date Note Type Note [...] ................. ................. ................. ................. ................. ................. ..... Tank Car Repairer Note From Eusebio Hawkins: Dispatched to the [...] ..... Disposition: Fulfilled Davida Marshall MD [address] [facility],[address], [place], [address], [employer] 05/25/2023 20:01:39 OBGyn Episode No OBEpisode recorded.
--- OUTSIDE RECORDS SUMMARY | 2025-03-15 14:37 | XMS_ITS | Clinical Summary ---
Author Organization [facility] Address [address] [place] [address] Care Team Providers Care Apprentice Machinist Outside Name Role Phone Tata Baptiste DO Primary [...] (attention deficit hyperactivity disorder) Overview: Hellen Sifuentes [place] Chronic narcotic use Resolved Problems Problem Noted [...] age to complete this topic Care Teams Apprentice Machinist Outside Relationship Specialty Start Date End Date Tata Baptiste DO PCP - General Family Medicine 01/05/18
== END 2025-03-15 14:42 | disposition home or self-care (01) ==
PROVIDERS: PCP Nurse Practitioner Family; Visit Provider Nurse Practitioner Family
DX: G90.521 Complex regional pain syndrome I of right lower limb (principal); G89.4 Chronic pain syndrome; M51.369 Other intervertebral disc degeneration, lumbar region without mention of lumbar back pain or lower extremity pain; Z79.891 Long term (current) use of opiate analgesic; M47.816 Spondylosis without myelopathy or radiculopathy, lumbar region
CPT/HCPCS: 99214; G2211

== ENCOUNTER → 2025-03-15 14:18 | Outpatient (BNVA) | payer OTHER, SELFPAY | PROVIDERS: PCP Nurse Practitioner Family; Visit Provider Nurse Practitioner Family | DX: Z51.81 Encounter for therapeutic drug level monitoring (principal); G90.521 Complex regional pain syndrome I of right lower limb; M47.816 Spondylosis without myelopathy or radiculopathy, lumbar region; M51.360 Other intervertebral disc degeneration, lumbar region with discogenic back pain only; G89.4 Chronic pain syndrome; Z79.891 Long term (current) use of opiate analgesic | CPT/HCPCS: 99212 ==

== ENCOUNTER 2025-04-12 14:13 | Outpatient (AMB) | payer OTHER, SELFPAY ==
--- NOTE | 2025-04-12 14:18 | MHC.OFFVIS ---
Vital Signs 04/12/25 14:22 Height 4 ft 11 in Weight 148 lb 2 oz BMI 29.9 BP 131/72 Blood Pressure Location Rt brachial Position Sitting Pulse 101 H Pulse Source Pulse Oximeter Pulse Oximetry (%) 92 Oxygen Delivery Method Nasal Cannula Oxygen Flow Rate 2 Intake Visit Reasons: Pill count Intake Note: Amna comes in today for a pill count to morphine, patient should have 48 tablets and presents with 50 tablets which she last took today 04/12/25 at 12:30pm. Pain today 05/07 Supervisor Coin Machine Required: No Accompanied by: Self / Same As Patient Allergies No Known Allergies Allergy (Verified 04/12/25 14:23) HPI Comments Details: Patient presents today for a pill count. Patient is supposed to have #48 pills in her possession and presents with #47 pills. This demonstrates a responsible attitude towards her regimen. Patient reports adequate analgesia on morphine 15 mg QID prn without any side effects except occasional constipation. Patient reports current medication regime allows her to be less symptomatic and more functional. She also takes gabapentin. Currently rates pain 05/07. Patient uses supplemental O2 at 2L via nasal cannula during the day and night. She follows with [facility] for pulmonary fibrosis. 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 Social History Household Members: Other Household Members Other:: Dog Housing: Condominium Do you presently have visiting nurse or other home services: No Alcohol intake: never Patient Tobacco Use Status: Former Tobacco user Tobacco use type: Cigarette Cigarettes Per Day: 1 Years Smoked: 30 e-Cigarette/Vaping Use: Never Used Second Hand Smoke Exposure: No Substance Use Type: Marijuana Advance Directives Date on File: 08/05/21 service: No Current occupational status: disabled Cognitive needs: No Hearing needs: No Vision needs: No Review of Systems Const All systems reviewed & are unremarkable except as noted in HPI and below Physical Exam General: Appears afebrile. Alert and oriented. Mood and affect appropriate. Follows and participates in conversation appropriately. Respiratory effort is unlabored. No cough. Uses supplemental O2@ 2 L via nasal cannula. Able to transition from sit to stand unassisted. Uses walker with seat with ambulation. Resp Effort & Inspection: normal respiratory effort, able to speak in complete sentences, no cough, no respiratory distress and symmetric chest movement Psych Appearance: grossly normal and well kempt Mental Status: mental status grossly normal Speech and movement: Normal speech and movement present and Clear speech present Affect: normal affect Attitude: cooperative Thought process: Normal thought process present Thought content: Normal thought content present, suicidality (none), no hallucinations and Depressive thoughts present Insight: Good insight present (Psych) Judgement: Good judgement present (Psych) Results Reviewed Results Reviewed: XR THORACOLUMBAR SPINE 01/03/23 FINDINGS: There is bony demineralization. Vertebral body heights are normal. There is a mild lower thoracic dextroscoliosis. There is mild degenerative disc disease at T8-T9, and moderate degenerative disc disease seen at T11-T12 and T12-L1. The remaining thoracic disc spaces are relatively well-maintained. No acute fracture or spondylolisthesis is seen. There is mild thoracic spondylosis. The posterior elements are intact. The paravertebral soft tissues are unremarkable. IMPRESSION: 1. There is a mild lower thoracic dextroscoliosis. 2. There is mild degenerative disc disease at T8-T9, and moderate degenerative disease is seen at T11-T12 and T12-L1. XR LUMBOSACRAL SPINE 01/03/23 COMPARISON: Radiographs dated 08/09/2019 TECHNIQUE: AP, bilateral oblique and lateral (neutral, flexion and extension) views of the lumbar spine and lateral view of the lumbosacral junction. FINDINGS: There is bony demineralization. There is a mild lumbar levoscoliosis. Vertebral body heights are normal. At L1-L2, there is a 4 mm retrolisthesis. The remaining disc spaces are relatively well-maintained. No acute fracture or spondylolisthesis is seen. There is no instability with flexion or extension. The posterior elements are intact. No spondylolysis defect is seen. There is multi-level lumbar facet arthropathy. The paravertebral soft tissues are unremarkable. There are aortoiliac atherosclerotic calcifications. IMPRESSION: 1. There is moderate degenerative disc disease at L1-L2. 2. No acute fracture or spondylolisthesis is seen. 3. There is multi-level lumbar facet arthropathy. 4. There is a mild lumbar levoscoliosis. 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 There is no evidence of misuse, abuse or diversion at this time. MassPAT reviewed. Script for Morphine IR 15 mg QID with an advanced date of 04/24/25 for moderate-severe pain. Patient reports reasonable analgesia without side effects except occasional constipation. Reviewed with the patient the risks associated with benzodiazepine and chcf opioid use. Patient is aware and verbalized agreement to take the medications at least two hours apart. Patient has Narcan at home. All questions were answered and patient is in agreement of plan. Follow up in 4-5 weeks for a pill count or sooner as needed. Medications: Refilled morphine Partial Fill upon patient request. 15 mg PO Q6H 30 days PRN 120 tabs 0RF pain, severe NS G89.4 - Chronic pain syndrome, G90.521 - Complex regional pain syndrome I of right lower limb, M47.816 - Spondylosis without myelopathy or radiculopathy, lumbar region, M51.36 - Other intervertebral disc degeneration, lumbar region Coding Level of Care Code Est Pt Level 4 (59852) Complex EM visit Add On G2211 Diagnoses Complex regional pain syndrome of right lower extremity G90.521 Chronic pain syndrome G89.4 Lumbar degenerative disc disease M51.36 [facility] (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
--- OUTSIDE RECORDS SUMMARY | 2025-04-12 14:18 | XMS_ITS | Clinical Summary ---
Author Organization [facility] Address [address] [place] [address] Care Team Providers Care Lead Tinner Name Role Phone Tata Baptiste DO Primary [...] (attention deficit hyperactivity disorder) Overview: Hellen Sifuentes [place] Chronic narcotic use Resolved Problems Problem Noted [...] History Relation Name Comments Heart disease Brother [place] Drug abuse Father Hypertension Father Heart disease [...] age to complete this topic Care Teams Lead Tinner Relationship Specialty Start Date End Date Tata Baptiste DO PCP - General Family Medicine 01/05/18
--- OUTSIDE RECORDS SUMMARY | 2025-04-12 14:18 | XMS_ITS | Clinical Summary ---
Author Organization [facility] Address [address] [place] [address] Care Team Providers Care Hat Stock Laminating Machine Operator Name Role Phone Tata Baptiste DO Primary [...] disorder) DX:ADHD (attention deficit hyperactivity disorder);COMMENT:Hellen Sifuentes [place] Tobacco abuse DX:Tobacco abuse ;COMMENT:20 years 1 [...] Date Smoking Tobacco: Heavy Smoker Cigarettes 0.5 25.2 Started: 01/25/2000 Smokeless Tobacco: Never Alcohol Use [...] age to complete this topic Care Teams Hat Stock Laminating Machine Operator Relationship Specialty Start Date End Date Tata Baptiste DO 2 [facility] [address] [place] [address] PCP - General Family Medicine 01/05/18
--- OUTSIDE RECORDS SUMMARY | 2025-04-12 14:18 | XMS_ITS | Data Portability ---
Author Organization [employer] [place] Address [address] [place] [address] Care Team Providers Care Fire Equipment Inspector Helper Name Role Phone [facility] Referring Provider Assessment [...] SNOMED-CT Code Diagnosis ICD10 Code Diagnosis Note [id number] Davida Marshall MD Main - [facility] [address] [place] [address] 05/25/2023 19:56:41 05/26/2023 11:25:43 Right flank pain [id number] R10.9 Health Concerns Section Related Observation LastModified by Organization Detai ls LastModified Time None Recorded Concern Status LastModified by Organization Details LastModified Time None Recorded Advance Directives Directive None Recorded Payers Insurance Date Sequence Insurance Name Policy Number Policy Henson Covered Member ID Henson Member ID Guarantor Name 05/25/[address] [facility] - DOS ON OR AFTER 2023 - DUAL ELIGIBLE - [employer] AND ONE [employer] (MEDICARE REPLACEMENT/ADV ANTAGE - HMO) Amna Mcfadden [id number] Amna Mcfadden Notes Date Note Type Note [...] ................. ................. ................. ................. ................. ................. ..... Breadman Note From Eusebio Hawkins: Dispatched to the [...] ..... Disposition: Fulfilled Davida Marshall MD [address] [facility],[address], [place], [address], [place] [facility] 05/25/2023 20:01:39 OBGyn Episode No OBEpisode recorded.
[2025-04-12 14:22] VITALS: BP 131/72; PULSE 101; O2SAT 92; BMI 29.9
== END 2025-04-12 14:30 | disposition home or self-care (01) ==
LOC: HO.PMC 14:14
PROVIDERS: PCP Nurse Practitioner Family; Visit Provider Nurse Practitioner Family
DX: G90.521 Complex regional pain syndrome I of right lower limb (principal); G89.4 Chronic pain syndrome; M51.369 Other intervertebral disc degeneration, lumbar region without mention of lumbar back pain or lower extremity pain; Z79.891 Long term (current) use of opiate analgesic; M47.816 Spondylosis without myelopathy or radiculopathy, lumbar region
CPT/HCPCS: 99214; G2211

== ENCOUNTER → 2025-04-12 14:13 | Outpatient (BNVA) | payer OTHER, SELFPAY | PROVIDERS: PCP Nurse Practitioner Family; Visit Provider Nurse Practitioner Family | DX: G90.521 Complex regional pain syndrome I of right lower limb (principal); G89.4 Chronic pain syndrome; M51.369 Other intervertebral disc degeneration, lumbar region without mention of lumbar back pain or lower extremity pain; M47.816 Spondylosis without myelopathy or radiculopathy, lumbar region; Z51.81 Encounter for therapeutic drug level monitoring; Z79.891 Long term (current) use of opiate analgesic | CPT/HCPCS: 99212 ==

== ENCOUNTER 2025-05-10 14:10 | Outpatient (AMB) | payer OTHER, SELFPAY ==
--- NOTE | 2025-05-10 14:13 | MHC.OFFVIS ---
Vital Signs 05/10/25 14:22 Height 4 ft 11 in Weight 148 lb BMI 29.9 BP 137/75 Blood Pressure Location Lt brachial Position Sitting Pulse 105 H Pulse Source Pulse Oximeter Pulse Oximetry (%) 90 L Oxygen Delivery Method Nasal Cannula Oxygen Flow Rate 2 Intake Visit Reasons: Pill count Intake Note: Amna comes in today for a pill count to morphine, patient should have 52 tablets and presents with 54 tablets which she last took today 05/10/25 at 12pm. Pain today 03/07 Director Of Career Resources Required: No Accompanied by: Self / Same As Patient Allergies No Known Allergies Allergy (Verified 05/10/25 14:23) HPI Comments Details: Patient presents today for a pill count. Patient is supposed to have #52 pills in her possession and presents with #54 pills. This demonstrates a responsible attitude towards her regimen. Patient reports adequate analgesia on morphine 15 mg QID prn without any side effects except occasional constipation. Patient reports current medication regime allows her to be less symptomatic and more functional. She also takes gabapentin. Currently rates pain 03/07. The patient manages constipation with Dulcolax and uses probiotics, recently resumed after a supply gap. She reports significant anxiety affecting her sleep, resulting in early awakening and persistent sleep disruptions since late April. Despite being on continuous oxygen therapy, she occasionally performs self-administered breathing treatments to manage respiratory symptoms. The patient receives assistance in daily life activities from a SPACE SYSTEMS OPERATIONS CRAFTSMAN due to activity intolerance, maintaining her independent living status. Patient uses supplemental O2 at 2L via nasal cannula during the day and night. She follows with [facility] for pulmonary fibrosis. 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 Social History Household Members: Other Household Members Other:: Dog Housing: Condominium Do you presently have visiting nurse or other home services: No Alcohol intake: never Patient Tobacco Use Status: Former Tobacco user Tobacco use type: Cigarette Cigarettes Per Day: 1 Years Smoked: 30 e-Cigarette/Vaping Use: Never Used Second Hand Smoke Exposure: No Substance Use Type: Marijuana Advance Directives Date on File: 08/05/21 service: No Current occupational status: disabled Cognitive needs: No Hearing needs: No Vision needs: No Review of Systems Const All systems reviewed & are unremarkable except as noted in HPI and below Physical Exam General: Appears afebrile. Alert and oriented. Mood and affect appropriate. Follows and participates in conversation appropriately. Respiratory effort is unlabored. No cough. Uses supplemental O2@ 2 L via nasal cannula. Able to transition from sit to stand unassisted. Uses walker with seat with ambulation. Resp Effort & Inspection: normal respiratory effort, able to speak in complete sentences, no cough, no respiratory distress and symmetric chest movement Psych Appearance: grossly normal and well kempt Mental Status: mental status grossly normal Speech and movement: Normal speech and movement present and Clear speech present Affect: normal affect Attitude: cooperative Thought process: Normal thought process present Thought content: Normal thought content present, suicidality (none), no hallucinations and Depressive thoughts present Insight: Good insight present (Psych) Judgement: Good judgement present (Psych) Results Reviewed Results Reviewed: XR THORACOLUMBAR SPINE 01/03/23 FINDINGS: There is bony demineralization. Vertebral body heights are normal. There is a mild lower thoracic dextroscoliosis. There is mild degenerative disc disease at T8-T9, and moderate degenerative disc disease seen at T11-T12 and T12-L1. The remaining thoracic disc spaces are relatively well-maintained. No acute fracture or spondylolisthesis is seen. There is mild thoracic spondylosis. The posterior elements are intact. The paravertebral soft tissues are unremarkable. IMPRESSION: 1. There is a mild lower thoracic dextroscoliosis. 2. There is mild degenerative disc disease at T8-T9, and moderate degenerative disease is seen at T11-T12 and T12-L1. XR LUMBOSACRAL SPINE 01/03/23 COMPARISON: Radiographs dated 08/09/2019 TECHNIQUE: AP, bilateral oblique and lateral (neutral, flexion and extension) views of the lumbar spine and lateral view of the lumbosacral junction. FINDINGS: There is bony demineralization. There is a mild lumbar levoscoliosis. Vertebral body heights are normal. At L1-L2, there is a 4 mm retrolisthesis. The remaining disc spaces are relatively well-maintained. No acute fracture or spondylolisthesis is seen. There is no instability with flexion or extension. The posterior elements are intact. No spondylolysis defect is seen. There is multi-level lumbar facet arthropathy. The paravertebral soft tissues are unremarkable. There are aortoiliac atherosclerotic calcifications. IMPRESSION: 1. There is moderate degenerative disc disease at L1-L2. 2. No acute fracture or spondylolisthesis is seen. 3. There is multi-level lumbar facet arthropathy. 4. There is a mild lumbar levoscoliosis. 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 There is no evidence of misuse, abuse or diversion at this time. MassPAT reviewed. The patient's treatment involves continuing her current medication regimen, specifically morphine IR and gabapentin, for managing chronic pain and anxiety-induced insomnia. Current management of constipation with Dulcolax and probiotics appears effective, with ongoing encouragement to maintain fluid intake. Her continuous oxygen therapy remains at two liters per minute, currently sufficient to address her respiratory needs. Potential impacts from the national morphine shortage will be monitored, although her medication access remains stable. Script for Morphine IR 15 mg QID with an advanced date of 05/24/25 for moderate-severe pain. Reviewed with the patient the risks associated with benzodiazepine and intermediate teacher opioid use. Patient is aware and verbalized agreement to take the medications at least two hours apart. Patient has Narcan at home. All questions were answered and patient is in agreement of plan. Follow up in 4-5 weeks for a pill count or sooner as needed. Patient was informed and verbally consented to the use of an ambient scribe for clinic note documentation during this visit. Medications: Refilled morphine Partial Fill upon patient request. 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
[2025-05-10 14:22] VITALS: BP 137/75; PULSE 105; O2SAT 90; BMI 29.9
== END 2025-05-10 14:32 | disposition home or self-care (01) ==
LOC: HO.PMC 14:10
PROVIDERS: PCP Nurse Practitioner Family; Visit Provider Nurse Practitioner Family
DX: G90.521 Complex regional pain syndrome I of right lower limb (principal); G89.4 Chronic pain syndrome; M51.369 Other intervertebral disc degeneration, lumbar region without mention of lumbar back pain or lower extremity pain; Z79.891 Long term (current) use of opiate analgesic; M47.816 Spondylosis without myelopathy or radiculopathy, lumbar region; G47.00 Insomnia, unspecified
CPT/HCPCS: 99214; G2211

== ENCOUNTER → 2025-05-10 14:10 | Outpatient (BNVA) | payer OTHER, SELFPAY | PROVIDERS: PCP Nurse Practitioner Family; Visit Provider Nurse Practitioner Family | DX: G90.521 Complex regional pain syndrome I of right lower limb (principal); G89.4 Chronic pain syndrome; M47.816 Spondylosis without myelopathy or radiculopathy, lumbar region; M51.360 Other intervertebral disc degeneration, lumbar region with discogenic back pain only; G47.00 Insomnia, unspecified | CPT/HCPCS: 99212 ==

== ENCOUNTER 2025-07-05 11:33 | Outpatient (AMB) | payer OTHER, SELFPAY ==
--- NOTE | 2025-07-05 11:33 | MHC.OFFVIS ---
Vital Signs 07/05/25 11:45 Height 4 ft 11 in Weight 148 lb BMI 29.9 BP 137/94 H Blood Pressure Location Lt brachial Position Sitting Pulse 117 H Pulse Source Pulse Oximeter Pulse Oximetry (%) 94 Oxygen Delivery Method Room Air Intake Visit Reasons: PILL COUNT/ random UDS Intake Note: Amna comes in today for a pil count to oxycodone, patient should have 24 tablets and presents with 21 tablets which last took today 07/05/25 at 8:30am. Pain today 06/06 Patient will also go for a random UDS today, aware that she will need to go to the lab on the first floor of this building today 07/05/25 before 1pm. Paving Foreman Required: No Accompanied by: Self / Same As Patient Allergies No Known Allergies Allergy (Verified 05/10/25 14:23) HPI Comments Details: Patient presents today for a pill count. Patient is supposed to have #24 pills in her possession and presents with #21 pills. This presents with mild shortage but still within allowance for one day per our program and demonstrates a responsible attitude towards her regimen. Patient reports mild analgesia on morphine 15 mg QID prn since switching from morphine due to national shortage without any side effects except occasional constipation. Currently rates pain 710. The patient manages constipation with Dulcolax and uses probiotics. She receives continuous oxygen therapy and occasionally performs self-administered breathing treatments to manage respiratory symptoms. The patient receives assistance in daily life activities from a ANIMAL CRUELTY INVESTIGATOR due to activity intolerance, maintaining her independent living status. Patient uses supplemental O2 at 2L via nasal cannula during the day and night. She follows with [facility]mon[facility] for pulmonary fibrosis. 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 Social History Household Members: Other Household Members Other:: Dog Housing: Condominium Do you presently have visiting nurse or other home services: No Alcohol intake: never Patient Tobacco Use Status: Former Tobacco user Tobacco use type: Cigarette Cigarettes Per Day: 1 Years Smoked: 30 e-Cigarette/Vaping Use: Never Used Second Hand Smoke Exposure: No Substance Use Type: Marijuana Advance Directives Date on File: 08/05/21 service: No Current occupational status: disabled Cognitive needs: No Hearing needs: No Vision needs: No Review of Systems Const All systems reviewed & are unremarkable except as noted in HPI and below Physical Exam General: Appears afebrile. Alert and oriented. Mood and affect appropriate. Follows and participates in conversation appropriately. Respiratory effort is unlabored. No cough. Uses supplemental O2@ 2 L via nasal cannula. Able to transition from sit to stand unassisted. Uses walker with seat with ambulation. Resp Effort & Inspection: normal respiratory effort, able to speak in complete sentences, no cough, no respiratory distress and symmetric chest movement Psych Appearance: grossly normal and well kempt Mental Status: mental status grossly normal Speech and movement: Normal speech and movement present and Clear speech present Affect: normal affect and Anxious affect present Attitude: cooperative Thought process: Normal thought process present Thought content: Normal thought content present, suicidality (none), no hallucinations and Depressive thoughts present Insight: Good insight present (Psych) Judgement: Good judgement present (Psych) Results Reviewed Results Reviewed: XR THORACOLUMBAR SPINE 01/03/23 FINDINGS: There is bony demineralization. Vertebral body heights are normal. There is a mild lower thoracic dextroscoliosis. There is mild degenerative disc disease at T8-T9, and moderate degenerative disc disease seen at T11-T12 and T12-L1. The remaining thoracic disc spaces are relatively well-maintained. No acute fracture or spondylolisthesis is seen. There is mild thoracic spondylosis. The posterior elements are intact. The paravertebral soft tissues are unremarkable. IMPRESSION: 1. There is a mild lower thoracic dextroscoliosis. 2. There is mild degenerative disc disease at T8-T9, and moderate degenerative disease is seen at T11-T12 and T12-L1. XR LUMBOSACRAL SPINE 01/03/23 COMPARISON: Radiographs dated 08/09/2019 TECHNIQUE: AP, bilateral oblique and lateral (neutral, flexion and extension) views of the lumbar spine and lateral view of the lumbosacral junction. FINDINGS: There is bony demineralization. There is a mild lumbar levoscoliosis. Vertebral body heights are normal. At L1-L2, there is a 4 mm retrolisthesis. The remaining disc spaces are relatively well-maintained. No acute fracture or spondylolisthesis is seen. There is no instability with flexion or extension. The posterior elements are intact. No spondylolysis defect is seen. There is multi-level lumbar facet arthropathy. The paravertebral soft tissues are unremarkable. There are aortoiliac atherosclerotic calcifications. IMPRESSION: 1. There is moderate degenerative disc disease at L1-L2. 2. No acute fracture or spondylolisthesis is seen. 3. There is multi-level lumbar facet arthropathy. 4. There is a mild lumbar levoscoliosis. 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 There is no evidence of misuse, abuse or diversion at this time. MassPAT reviewed. Random UDS will obtained today. Script for oxycodone 10 mg Q6H prn sent with an advanced date of 07/10/25 for moderate-severe pain. Reviewed with the patient the risks associated with benzodiazepine and prison opioid use. Patient is aware and verbalized agreement to take the medications at least two hours apart. Patient has Narcan at home. All questions were answered and patient is in agreement of plan. Follow up in 4-5 weeks for a pill count or sooner as needed. Coding Level of Care Code Est Pt Level 4 (15924) Complex EM visit Add On G2211 Diagnoses Complex regional pain syndrome of right lower extremity G90.521 Chronic pain syndrome G89.4 Lumbar degenerative disc disease M51.36 group home (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
--- OUTSIDE RECORDS SUMMARY | 2025-07-05 11:36 | XMS_ITS | Clinical Summary ---
Author Organization [facility] Address [address] [place] [address] Care Team Providers Care Debt And Budget Counselor Name Role Phone Tata Baptiste DO Primary [...] disorder) DX:ADHD (attention deficit hyperactivity disorder);COMMENT:Hellen Sifuentes [place] Tobacco abuse DX:Tobacco abuse ;COMMENT:20 years 1 [...] Date Smoking Tobacco: Heavy Smoker Cigarettes 0.5 25.4 Started: 01/25/2000 Smokeless Tobacco: Never Alcohol Use [...] ars (1 of 2 - PCV) 1981 Cervical Cancer Screening: P ap Smear 1983 Zoster Vaccines (1 of 2) 2012 RSV Immunization Adult Patie nts (1 - Risk 60-74 years 1-dose series) 2022 Colorectal Cancer Screening: Colonoscopy 10/31/2022 HIV Screening 10/31/2022 Hepatitis C Screening 10/31/2022 Social Influencers of Health Screening 10/31/2022 COVID-19 Vaccine (1 - 2023-2 5 season) 2024 Depression Screening 11/28/2024 Influenza Vaccine (#1) 2025 DTaP,Tdap,and Td Vaccines (2 - Td [...] age to complete this topic Care Teams Debt And Budget Counselor Relationship Specialty Start Date End Date Tata Baptiste DO [address] [facility] [address] [place] [address] PCP - General Family Medicine 01/05/18
--- OUTSIDE RECORDS SUMMARY | 2025-07-05 11:36 | XMS_ITS | Clinical Summary ---
Author Organization [facility] Address [address] [place] [address] Care Team Providers Care Accounts Receivable Processor Name Role Phone Tata Baptiste DO Primary Care Provider [phone] Allergies Active Allergy Reactions Criticality Noted Date [...] (attention deficit hyperactivity disorder) Overview: Hellen Sifuentes [place] Chronic narcotic use Resolved Problems Problem Noted [...] 104 12/04/2020 1:04 PM EST Temperature 36.2 C (97.2 F) 12/04/2020 1:04 PM EST Respiratory Rate 18 12/04/2020 1:04 PM EST [...] Counseling 04/25/2020 04/25/2019 BMI Counseling 12/04/2021 12/04/2020, 12/29, 08/06/2019, Additional history exists Colon Cancer Screening (Colonoscopy) 12/27/2022 12/27/2012 Influenza Vaccine (#1) 2025 DTap / Tdap / Td (2 - [...] age to complete this topic Care Teams Accounts Receivable Processor Relationship Specialty Start Date End Date Tata Baptiste DO PCP - General Family Medicine 01/05/18
[2025-07-05 11:45] VITALS: BP 137/94; PULSE 117; O2SAT 94; BMI 29.9
== END 2025-07-05 11:53 | disposition home or self-care (01) ==
LOC: HO.PMC 11:33
PROVIDERS: PCP Nurse Practitioner Family; Visit Provider Nurse Practitioner Family
DX: G90.521 Complex regional pain syndrome I of right lower limb (principal); G89.4 Chronic pain syndrome; M51.369 Other intervertebral disc degeneration, lumbar region without mention of lumbar back pain or lower extremity pain; Z79.891 Long term (current) use of opiate analgesic; M47.816 Spondylosis without myelopathy or radiculopathy, lumbar region
CPT/HCPCS: 99214; G2211

== ENCOUNTER → 2025-07-05 11:33 | Outpatient (BNVA) | payer OTHER, SELFPAY | PROVIDERS: PCP Nurse Practitioner Family; Visit Provider Nurse Practitioner Family | DX: G90.521 Complex regional pain syndrome I of right lower limb (principal); G89.4 Chronic pain syndrome; M51.360 Other intervertebral disc degeneration, lumbar region with discogenic back pain only; Z79.891 Long term (current) use of opiate analgesic; M47.816 Spondylosis without myelopathy or radiculopathy, lumbar region | CPT/HCPCS: 99212 ==

== ENCOUNTER 2025-07-25 13:06 | Outpatient (AMB) | payer OTHER, SELFPAY ==
[2025-07-25 13:10] VITALS: BP 138/72; PULSE 110; O2SAT 93; BMI 31.1
--- NOTE | 2025-07-25 13:10 | MHC.OFFVIS ---
Vital Signs 07/25/25 13:10 Height 4 ft 11 in Weight 154 lb BMI 31.1 BP 138/72 Blood Pressure Location Rt brachial Position Sitting Pulse 110 H Pulse Source Pulse Oximeter Pulse Oximetry (%) 93 Oxygen Delivery Method Nasal Cannula Oxygen Flow Rate 3 Intake Visit Reasons: Obstructive sleep apnea Allergies antibiotics Adverse Reaction (Severe, Uncoded 07/25/25 13:17) Gastrointestinal Upset HPI HPI Obstructive sleep apnea: Details: 64-year-old lady with underlying congestive heart failure followed for interstitial lung disease supplemental oxygen dependent 2 L continuous flow, pulmonary nodules, and MIRI.?Her prior CT chest showed fibrosis and increasing had right sided pulmonary nodule.? Her PET scan showed no FDG activity in the nodule. Patient had several follow-up CT chest that showed stability of underlying findings. After the last office visit her prednisone was increased to 15 mg daily with reasonable baseline control of her symptoms. 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 Social History Household Members: Other Household Members Other:: Dog Housing: Condominium Do you presently have visiting nurse or other home services: No Alcohol intake: never Patient Tobacco Use Status: Former Tobacco user Tobacco use type: Cigarette Cigarettes Per Day: 1 Years Smoked: 30 e-Cigarette/Vaping Use: Never Used Second Hand Smoke Exposure: No Substance Use Type: Marijuana Advance Directives Date on File: 08/05/21 service: No Current occupational status: disabled Cognitive needs: No Hearing needs: No Vision needs: No Review of Systems Const Denies daytime sleepiness, Denies excessive sweating, Denies fatigue, Denies fever(s), Denies lethargy, Denies malaise, Denies night sweats, Denies snoring and Denies weight loss Eyes Denies blurry vision and Denies itchy eyes ENT Denies nasal congestion, Denies post nasal drip, Denies sinus pain, Denies sinus pressure and Denies other ( Thrush) Card Denies chest pain, Denies pedal edema, Denies dyspnea, Denies orthopnea and Denies paroxysmal nocturnal dyspnea Resp Denies cough, Denies hemoptysis, Denies excessive phlegm production, Denies dyspnea, Denies snoring and Denies wheezing GI Denies abdominal pain and Denies heartburn Musc Denies myalgias, Denies arthralgias and Denies joint swelling Skin/Breast Denies rash Neuro Denies memory loss and Denies seizure-like activity Psych Denies abnormal sleep pattern, Denies anxiety and Denies memory loss Endo Denies excessive sweating, Denies fatigue and Denies heat intolerance Demian/Lymph Denies easy bruising Aller/Immun Denies itchy eyes, Denies seasonal rhinorrhea and Denies wheezing Physical Exam Vital Signs: Last Vital Signs Pulse 110 H 07/25/25 13:10 BP 138/72 07/25/25 13:10 Pulse Ox 93 07/25/25 13:10 Oxygen Delivery Method Nasal Cannula 07/25/25 13:10 Oxygen Flow Rate 3 07/25/25 13:10 BMI result Body Mass Index 31.1 Const General: no acute distress and alert Nutritional Appearance: not obese Orientation/consciousness: Other orientation findings ( oriented) HEENT Head: Yes atraumatic Eyes General: appearance normal, both eyes and all related structures Sclerae: sclerae normal EOM: EOMs intact bilaterally Neck Neck: Yes supple Lymphatic: no lymphadenopathy noted Resp Effort & Inspection: normal respiratory effort and no use of accessory muscles Auscultation: clear to auscultation bilaterally Cardio Rate: regular rate Rhythm: regular rhythm Heart sounds: no gallops, no murmurs and no rubs Skin General skin exam: other ( warm) Extrem General: No clubbing, No cyanosis and No edema Assessment & Plan Assessment & Plan (1) ILD (interstitial lung disease): Code(s): J84.9 - Interstitial pulmonary disease, unspecified Category: Medical Plan: Reasonable baseline control on prednisone 50 mg daily and duo nebs with albuterol MDI. Continue current regimen. Will repeat PFT to assess for disease progression. (2) Supplemental oxygen dependent: Code(s): Z99.81 - Dependence on supplemental oxygen Category: Medical Plan: Continue supplemental oxygen to maintain O2 saturation above 89%. (3) Pulmonary nodule: Code(s): R91.1 - Solitary pulmonary nodule Category: Medical Plan: Previously negative on PET CT, will repeat CT chest in September of 2025. Orders: Orders PFT pulmonary function test Today J84.9 - Interstitial pulmonary disease, unspecified Coding Level of Care Code Est Pt Level 4 (01686) Complex EM visit Add On G2211 Diagnoses ILD (interstitial lung disease) J84.9 Supplemental oxygen dependent Z99.81 Pulmonary nodule R91.1
--- OUTSIDE RECORDS SUMMARY | 2025-07-25 13:45 | XMS_ITS | Clinical Summary ---
Author Organization [facility] Address [address] [place] [address] Care Team Providers Care Res Counselor Name Role Phone Tata Baptiste DO Primary Care Provider [phone] Allergies Active Allergy Reactions Criticality Noted Date [...] (attention deficit hyperactivity disorder) Overview: Hellen Sifuentes [place] Chronic narcotic use Resolved Problems Problem Noted [...] History Relation Name Comments Heart disease Brother [place] Drug abuse Father Hypertension Father Heart disease [...] age to complete this topic Care Teams Res Counselor Relationship Specialty Start Date End Date Tata Baptiste DO PCP - General Family Medicine 01/05/18
--- OUTSIDE RECORDS SUMMARY | 2025-07-25 13:45 | XMS_ITS | Clinical Summary ---
Author Organization [facility] Address [address] [place] [address] Care Team Providers Care Sales Estimator Name Role Phone Tata Baptiste DO Primary [...] disorder) DX:ADHD (attention deficit hyperactivity disorder);COMMENT:Hellen Sifuentes [place] Tobacco abuse DX:Tobacco abuse ;COMMENT:20 years 1 [...] Date Smoking Tobacco: Heavy Smoker Cigarettes 0.5 25.5 Started: 01/25/2000 Smokeless Tobacco: Never Alcohol Use [...] age to complete this topic Care Teams Sales Estimator Relationship Specialty Start Date End Date Tata Baptiste DO [address] [place] [address] [place] [address] PCP - General Family Medicine 01/05/18
== END 2025-07-25 13:39 | disposition home or self-care (01) ==
LOC: HO.HPS 13:07
PROVIDERS: PCP Nurse Practitioner Family; Visit Provider Internal Medicine Pulmonary Disease
DX: J84.9 Interstitial pulmonary disease, unspecified (principal); Z99.81 Dependence on supplemental oxygen; R91.1 Solitary pulmonary nodule
CPT/HCPCS: 99214; G2211

== ENCOUNTER → 2025-07-25 13:06 | Outpatient (BNVA) | payer OTHER, SELFPAY | PROVIDERS: PCP Nurse Practitioner Family; Visit Provider Internal Medicine Pulmonary Disease | DX: R91.1 Solitary pulmonary nodule (principal); J84.9 Interstitial pulmonary disease, unspecified; Z99.81 Dependence on supplemental oxygen; G47.33 Obstructive sleep apnea (adult) (pediatric) | CPT/HCPCS: 99212 ==

== ENCOUNTER → 2025-08-02 14:22 | Outpatient (BNVA) | payer OTHER, SELFPAY | PROVIDERS: PCP Nurse Practitioner Family; Visit Provider Nurse Practitioner Family | DX: Z13.89 Encounter for screening for other disorder (principal) ==

== ENCOUNTER 2025-08-08 14:00 | Outpatient (AMB) | payer OTHER, SELFPAY ==
[2025-08-08 14:31] VITALS: BP 114/62; PULSE 106; BMI 31.7
--- NOTE | 2025-08-08 14:31 | A.OFFVIS_ITS ---
Vital Signs 08/08/25 14:31 Height 4 ft 11 in Weight 156 lb 15.506 oz BMI 31.7 BP 114/62 Blood Pressure Location Rt brachial Position Sitting Pulse 106 H Pulse Source Monitor Intake Visit Reasons: Follow up r/s 08-02-25 Assembler Crimper Required: No Allergies antibiotics Adverse Reaction (Severe, Uncoded 08/08/25 14:37) Gastrointestinal Upset Medication List - Last Reconciled 08/09/25 by TRACIE Gonzalez albuterol sulfate 90 mcg/actuation 1 puff PO QID PRN aspirin 81 mg PO DAILY blood pressure monitor As directed calcium carbonate-vitamin D3 600 mg-5 mcg (200 unit) 1 tab PO DAILY cholecalciferol (vitamin D3) 50 mcg PO DAILY COVID-19 antigen test As directed crutches (pair of crutches) As directed CPT E0114 diaper,brief,adult,disposable (Fitted Briefs Large) Disposable pull up briefs for fecal incontinence, uses 2 per day disposable gloves (Disposable Latex-Free Gloves) Disposable gloves, size medium, for incontinence care docusate sodium 100 mg PO BEDTIME folic acid 1 mg PO DAILY gabapentin 800 mg (2 x 400 mg) PO QID 90 days [HurryCane As directed] ipratropium-albuterol 0.5 mg-3 mg(2.5 mg base)/3 mL 3 mL inhalation Q4-6H PRN Lactobac. rhamnosus GG-inulin 10 billion cell -200 mg ([facility] [employer] [facility]) 1 tab PO DAILY lactobacillus combination no.9 (Adult 50 Plus Probiotic) 4,000 mmu cells PO DAILY miscellaneous medical supply Disposable wipes, for fecal incontinence, uses 4 per day naloxone 4 mg/actuation (Narcan) 4 mg intranasal Q2M PRN nebulizer and compressor Use every eight hours or as needed for acute shortness of breath or wheezing nitroglycerin (Nitrostat) 0.4 mg sublingual Q5MX3 PRN ondansetron 4 mg PO Q8H PRN 30 days oxycodone 10 mg PO Q6H PRN 30 days prednisone 15 mg (3 x 5 mg) PO DAILY vitamin A 1 cap PO DAILY HPI HPI Follow up r/s 08-02-25: Details: Amna is a 65-year-old female with past medical history of hypertension, interstitial lung disease, cor pulmonale who presents for follow-up. Today she reports that she has been getting some left-sided chest discomfort when her breathing is bad. She has used nitroglycerin on a few occasions with improvement in this symptom. She has chronic shortness of breath and wears oxygen continually. She follows with Dr. South for pulmonology. She admits to being mostly sedentary due to her respiratory status. She fatigues very easily. She is anxious at the time of the visit because her transportation has already arrived for her citrus picker and they keep calling her. She has no heart palpitations, lightheadedness, presyncope, syncope, leg edema. Taking meds as directed. She tells me her eating is unchanged but she is gaining weight in her abdomen. 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 Social History Household Members: Other Household Members Other:: Dog Housing: Condominium Do you presently have visiting nurse or other home services: No Alcohol intake: never Patient Tobacco Use Status: Former Tobacco user Tobacco use type: Cigarette Cigarettes Per Day: 1 Years Smoked: 30 e-Cigarette/Vaping Use: Never Used Second Hand Smoke Exposure: No Substance Use Type: Marijuana Advance Directives Date on File: 08/05/21 service: No Current occupational status: disabled Cognitive needs: No Hearing needs: No Vision needs: No Review of Systems Const All systems reviewed & are unremarkable except as noted in HPI and below Reports fatigue and Reports lethargy ENT Denies dizziness Card Denies chest pain, Denies chest pain at rest, Denies chest pain with activity, Denies rapid heart rate, Denies pedal edema, Denies edema, Denies leg edema, Denies lightheadedness, Denies palpitations, Reports dyspnea, Reports dyspnea on exertion and Reports orthopnea Resp Denies cough, Reports dyspnea and Reports dyspnea on exertion GI Denies hematochezia and Denies change in stool character Musc Denies abnormal gait, Denies limited range of motion, Denies muscle cramps, Denies muscle weakness, Denies numbness, Denies radiating pain into limb, Denies stiffness and Denies tingling Neuro Denies abnormal gait, Denies dizziness, Denies numbness and Denies tingling Endo Reports fatigue and Denies palpitations Physical Exam Vital Signs: Last Vital Signs Pulse 106 H 08/08/25 14:31 BP 114/62 08/08/25 14:31 BMI result Body Mass Index 31.7 Const General: cooperative, comfortable and no acute distress Orientation/consciousness: patient oriented x3 Neck Neck: Yes normal visual inspection Resp Effort & Inspection: normal respiratory effort Auscultation: crackles (coarse rales bilaterally - consistent with ILD), no rhonchi and no wheezes Cardio Rate: regular rate Rhythm: regular rhythm Heart sounds: S1 normal heart sound present, S2 normal heart sound present, no gallops, no murmurs and no rubs Neuro General: patient oriented x3 Extrem General: Yes normal to inspection Psych Appearance: grossly normal Mental Status: mental status grossly normal Speech and movement: Normal speech and movement present Office Procedures EKG Details: Today, read by me, sinus tachycardia, rate 106, left posterior fascicular block, QTC 422 milliseconds [id number], Complete Assessment & Plan Assessment & Plan (1) Chest discomfort: Code(s): R07.89 - Other chest pain Category: Medical Plan: Reports of chest discomfort with cardiac catheterization done 07/31/2024 showing normal coronary arteries. Last echo shows no regional wall motion abnormalities. EKG today showing sinus tachycardia, biatrial enlargement, left posterior fascicular block, rate 106. Her symptom could be musculoskeletal related in the setting of her shortness of breath. Recommended that she not use nitroglycerin for her chest discomfort as she has no coronary artery disease. (2) Chronic cor pulmonale: Code(s): I27.81 - Cor pulmonale (chronic) Category: Medical Plan: History of right heart failure, RV strain in the past. Known history of chronic interstitial lung disease. Maintained on low-dose steroids, home O2. Follows closely with pulmonology. No recent hospitalizations for right heart failure. Last echocardiogram 05/14/2024 showed EF greater than 70%, moderate increase in the RV size and moderate decrease in the RV systolic function, grade 1 diastolic dysfunction. Lungs with coarse rales on examination, consistent with interstitial lung disease. She does not appear to have any respiratory distress at this time. No change to treatment plan made. (3) ILD (interstitial lung disease): Code(s): J84.9 - Interstitial pulmonary disease, unspecified Category: Medical Plan: As above (4) Essential hypertension: Code(s): I10 - Essential (primary) hypertension Category: Medical Plan: Blood pressure goal less than 130/80. Well controlled at present. Well controlled. No med changes made. (5) Dyspnea on exertion: Code(s): R06.00 - Dyspnea, unspecified Category: Medical Plan: As above (6) Abnormal EKG: Code(s): R94.31 - Abnormal electrocardiogram [ECG] [EKG] Category: Medical Plan: EKG today with sinus tachycardia, biatrial enlargement and left posterior fascicular block, rate 106. (7) Weight gain: Code(s): R63.5 - Abnormal weight gain Category: Medical Plan: Reported recent weight gain, with unchanged breathing and no leg edema. She does report abdominal fullness. This could be related to steroid use. She does have known RV dysfunction and could be having increased right-sided heart failure. She is unable to get labs today due to issues with her transportation needing to leave now. Will have her check labs as soon as able and will update echocardiogram. Plan I discussed with the patient the nature of her chest pain, emphasizing that her cardiac catheterization showed normal coronary arteries, suggesting non-anginal pain. We reviewed her history of congestive heart failure and recent weight gain, considering the possibility of fluid retention. I advised her to continue to follow with Dr. South for pulmonary management. Orders: Orders Comprehensive Met. Panel 08/08/25 I50.9 - Heart failure, unspecified CA echo transthoracic complete 08/08/25 I27.81 - Cor pulmonale (chronic), I50.9 - Heart failure, unspecified, I51.7 - Cardiomegaly B Type Natriuretic Peptide 08/08/25 I50.9 - Heart failure, unspecified Patient Instructions: - Monitor chest pain and note any changes in pattern or severity. - Follow up with Dr. South for pulmonary condition. - Obtain labs as soon as able - Attend echocardiogram appointment when scheduled. - Report any significant weight changes or swelling to your healthcare provider. Patient was informed and verbally consented to the use of an ambient scribe for clinic note documentation during this visit. Visit time spent on chart review, interview, assessment, orders, documentation. Coding Level of Care Code Est Pt Level 4 (52351) Complex EM visit Add On G2211 Diagnoses Chest discomfort R07.89 Chronic cor pulmonale I27.81 ILD (interstitial lung disease) J84.9 Essential hypertension I10 Dyspnea on exertion R06.00 Abnormal EKG R94.31 Weight gain R63.5 CPT Codes EKG - CPT: [id number], Complete ([id number]) Time Spent (min) 28
--- OUTSIDE RECORDS SUMMARY | 2025-08-08 17:52 | XMS_ITS | Clinical Summary ---
Author Organization [facility] Address [address] [place] [address] Care Team Providers Care Federal Judge Name Role Phone Tata Baptiste DO Primary [...] (attention deficit hyperactivity disorder) Overview: Hellen Sifuentes [place] Chronic narcotic use Resolved Problems Problem Noted [...] History Relation Name Comments Heart disease Brother [place] Drug abuse Father Hypertension Father Heart disease [...] age to complete this topic Care Teams Federal Judge Relationship Specialty Start Date End Date Tata Baptiste DO PCP - General Family Medicine 01/05/18
== END 2025-08-08 15:40 | disposition home or self-care (01) ==
LOC: HO.HCS 14:01
PROVIDERS: PCP Nurse Practitioner Family; Visit Provider Nurse Practitioner Family
DX: R07.89 Other chest pain (principal); I27.81 Cor pulmonale (chronic); J84.9 Interstitial pulmonary disease, unspecified; I10 Essential (primary) hypertension; R06.00 Dyspnea, unspecified; R94.31 Abnormal electrocardiogram [ECG] [EKG]; R63.5 Abnormal weight gain
CPT/HCPCS: 93010; 99214; G2211

== ENCOUNTER → 2025-08-08 14:00 | Outpatient (BNVA) | payer OTHER, SELFPAY | PROVIDERS: PCP Nurse Practitioner Family; Visit Provider Nurse Practitioner Family | DX: I27.81 Cor pulmonale (chronic) (principal); R94.31 Abnormal electrocardiogram [ECG] [EKG]; I10 Essential (primary) hypertension; R06.00 Dyspnea, unspecified; R63.5 Abnormal weight gain; R07.89 Other chest pain; I50.9 Heart failure, unspecified | CPT/HCPCS: 93005; 99212 ==

== ENCOUNTER → 2025-08-21 10:53 | Outpatient (REF) | payer OTHER, SELFPAY ==
--- NOTE | 2025-08-21 10:57 | CA_ITS ---
Transthoracic Echocardiogram Patient (Last, First, Middle): Amna Mcfadden E Gender: F Date of : 1960 Age: 65 Procedure Date: 08/21/2025 Procedure Type: Transthoracic Echocardiogram Location: OP Height: 149.86 cm Weight: 58.97 kg BSA: 1.54 m2 Heart Rate: bpm BP: 122 / 60 mmHg Project Manager/Design Manager: DIGNA Referring MD: Katie Gomez INTERPRETATIVE DANCER-Gary Ocean Forwarder: Sherif Jha MD Symptoms: I27.81 - Cor pulmonale (chronic) Study Quality: Adequate ECG Rhythm: Sinus Conclusions: - 1. Hyperdynamic LV EF of greater than 70% with mild LVH with elevated filling pressures suggestive of grade 2 diastolic dysfunction 2. Moderately dilated right ventricle with preserved contractility and mildly dilated right atrium 3. Trivial aortic regurgitation with calcific aortic and mitral valve changes noted 4. Normal measured RV systolic pressure 5. No gross pericardial effusion Findings Left Ventricle Normal left ventricular cavity size. There is mildly increased left ventricular wall thickness. The left ventricular systolic function is hyperdynamic. The visually estimated ejection fraction is >70%. Spectral Doppler is indicative of an impaired relaxation filling pattern. Elevated filling pressures. Evidence suggests grade II (moderate) diastolic dysfunction. Right Ventricle Moderately increased right ventricular cavity size. There is normal right ventricular systolic function. Atria The left atrium is normal in size. There is lipomatous hypertrophy of the interatrial septum. There is no evidence of interatrial shunt. The right atrium is mildly dilated. Aortic Valve There is mild calcification of the aortic valve. There is no aortic valve stenosis. There is trace (trivial) aortic valve regurgitation. Mitral Valve There is mild anterior and moderate posterior mitral leaflet thickening. There is moderate mitral annular calcification. There is trace mitral valve regurgitation. There is no mitral valve stenosis. Pulmonic Valve The pulmonic valve was not well visualized. Tricuspid Valve Likely normal tricuspid valve structure and function. There is trace tricuspid valve regurgitation. The right ventricular systolic pressure is normal. The right ventricular systolic pressure is 18 mmHg. Normal right atrial pressure. There is no evidence of pulmonary hypertension. Great Vessels All visible segments of the aorta are normal in size. The pulmonary artery was not well visualized. There is no dilatation of the ascending aorta measuring 3.10 cm. Venous The inferior vena cava is normal in size and collapses greater than 50% with inspiration. Pericardium/Pleural There is no evidence of pericardial effusion. Prior Study Comparison Changes noted compared to prior study dated: 05/14/2024. RV systolic pressures on measured to be within normal limits on this study, could be underestimated Measurements 2D Linear Measurements IVSd: 1.28 0.6-0.9/0.6-1.0 cm LVIDd: 3.15 3.9-5.3/4.2-5.9 cm LVIDd Index: 2.05 2.4-3.2/2.2-3.1 cm/m2 LVIDs: 1.95 2.0-3.6 cm LVPWd: 1.20 0.7-1.1 cm Ao Root: 3.60 2.1-3.5 cm LA Diam: 2.90 2.7-3.8/3.0-4.0 cm LAIDs Index: 1.88 1.5-2.3 cm/m2 LV Mass: 153.09 67-162/88-224 g LV Mass Index: 99.41 43-95/49-115 g/m2 LVOT Diam: 2.00 3.0+(-)1.3 cm 2D Systolic Function EF 4C: 76.40 >55% EF 2C: 68.40 >55% EF BiP: 72.70 >55% Mitral Valve MV VTI: 0.28 MV Pk Silviano: 0.99 MV Mn Silviano: 0.61 MV Pk Grad: 4.00 MV Mn Grad: 2.00 MV Pk E: 0.70 MV PK A: 1.00 MV Decel Time: 190.00 E/A: 0.70 E'Lateral: 6.74 E'Medial: 4.24 E/E' Med: 16.50 E/E' Lat: 10.40 PHT: 56.00 MVA PHT: 3.93 MVA Continuity: 2.32 Decel Branch: 3.68 Aortic Valve AoV Pk Silviano: 1.67 AoV Mn Silviano: 1.06 AoV VTI: 0.37 AoV Pk Grad: 11.00 Aov Mn Grad: 6.00 MIAN Cont.VTI: 1.77 LVOT LVOT Pk Silviano: 0.96 LVOT Mn Silviano: 0.58 LVOT VTI: 0.21 LVOT Pk Grad: 4.00 LVOT Mn Grad: 2.00 LVOT Diam: 2.00 LVOT Area: 3.14 Diastolic Function MV Pk E: 0.70 MV Pk A: 1.00 E/A: 0.70 E'Medial: 4.24 E/E' Med: 16.50 E' Laterial: 6.74 E/E' Lat: 10.40 Right Ventricle TAPSE (mm): 22.00 TVS' Silviano: 11.00 Tricuspid Valve TR Pk Silviano: 1.94 TR Pk Grad: 15.00 RA Press: 3.00 RVSP: 18.00 Great Vessels Aorta Ao Root-2D: 3.60 2.0-3.7 cm Ao Asc: 3.10 2.1-3.4 cm Pulmonary Valve PV Pk Silviano: 0.93 Peak PV Grad: 3.00 Updated in Other Vendor System with Status of Final Sherif Jha MD electronically signed on 08/21/2025 4:06:43 PM with status of Final
--- OUTSIDE RECORDS SUMMARY | 2025-08-21 13:56 | XMS_ITS | Clinical Summary ---
Author Organization [facility] Address [address] [place] [address] Care Team Providers Care Ironing Machine Operator Name Role Phone Tata Baptiste [...] (attention deficit hyperactivity disorder) Overview: Hellen Sifuentes [place] Chronic narcotic use Resolved Problems Problem Noted [...] age to complete this topic Care Teams Ironing Machine Operator Relationship Specialty Start Date End Date Tata Baptiste DO PCP - General Family Medicine 01/05/18
--- OUTSIDE RECORDS SUMMARY | 2025-08-21 13:56 | XMS_ITS | Clinical Summary ---
Author Organization [facility] Address [address] [place] [address] Care Team Providers Care Button Maker And Installer Name Role Phone Tata Baptiste DO Primary [...] disorder) DX:ADHD (attention deficit hyperactivity disorder);COMMENT:Hellen Sifuentes [place] Tobacco abuse DX:Tobacco abuse ;COMMENT:20 years 1 [...] CAD DX:F amily history of early CAD;COMMENT:Brother [place] age 40 HNP (herniated nucleus pulpo cyndy), [...] History Relation Name Comments Heart disease Brother [place] Drug abuse Father Hypertension Father Heart disease [...] Date Smoking Tobacco: Heavy Smoker Cigarettes 0.5 25.6 Started: 01/25/2000 Smokeless Tobacco: Never Alcohol Use [...] 10/31/2022 Social Influencers of Health Screening 10/31/2022 Depression Screening 11/28/2024 COVID-19 Vaccine (1 - 2023-2 5 season) 2025 Influenza Vaccine (#1) 2025 DTaP,Tdap,and Td Vaccines [...] age to complete this topic Care Teams Button Maker And Installer Relationship Specialty Start Date End Date Tata Baptiste DO [address] [facility] [address] [place] [address] PCP - General Family Medicine 01/05/18
== END ==
LOC: HO.CARD 10:53
PROVIDERS: PCP Nurse Practitioner Family; Visit Provider Nurse Practitioner Family
DX: I27.81 Cor pulmonale (chronic) (principal); I51.7 Cardiomegaly; I50.9 Heart failure, unspecified
CPT/HCPCS: 93306

== ENCOUNTER → 2025-08-21 10:57 | Outpatient (BNV) | payer OTHER, SELFPAY | PROVIDERS: PCP Nurse Practitioner Family; Visit Provider Internal Medicine Cardiovascular Disease | DX: I34.0 Nonrheumatic mitral (valve) insufficiency (principal); I34.81 Nonrheumatic mitral (valve) annulus calcification; I51.89 Other ill-defined heart diseases | CPT/HCPCS: 93306 ==

== ENCOUNTER 2025-09-26 11:46 | Outpatient (AMB) | payer OTHER, SELFPAY ==
--- NOTE | 2025-09-26 11:49 | MHC.OFFVIS ---
Vital Signs 09/26/25 11:56 Height 4 ft 11 in Weight 156 lb BMI 31.5 BP 142/96 H Blood Pressure Location Lt brachial Position Sitting Pulse 106 H Pulse Source Pulse Oximeter Pulse Oximetry (%) 95 Oxygen Delivery Method Nasal Cannula Oxygen Flow Rate 3 Intake Visit Reasons: Pill Count Intake Note: Amna comes in today for a pill count to oxycodone, patient should have 40 tablets and present with 39 tablets which she last took today 09/26/25 at 10am. Pain today 05/07 Territory Sales Representative Required: No Accompanied by: Self / Same As Patient Allergies antibiotics Adverse Reaction (Severe, Uncoded 08/08/25 14:37) Gastrointestinal Upset HPI Comments Details: Patient presents today for a pill count. Patient is supposed to have #40 pills in her possession and presents with #39 pills. This demonstrates a responsible attitude towards her regimen. Patient reports mild analgesia on oxycodone 10 mg QID prn since switching from morphine due to national shortage without any side effects except occasional constipation. Currently rates pain 6-06/06. Last medication taken at 10:00. She requests to change back to morphine to better manage chronic pain if national shortage is over. The patient manages constipation with Dulcolax and uses probiotics. She receives continuous oxygen therapy and occasionally performs self-administered breathing treatments to manage respiratory symptoms. The patient receives assistance in daily life activities from a SENIOR MATERIALS SCIENTIST due to activity intolerance, maintaining her independent living status. Patient uses supplemental O2 at 3-5L via nasal cannula during the day with activities and night. She follows with [facility] for pulmonary fibrosis. 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 Social History Household Members: Other Household Members Other:: Dog Housing: Condominium Do you presently have visiting nurse or other home services: No Alcohol intake: never Patient Tobacco Use Status: Former Tobacco user Tobacco use type: Cigarette Cigarettes Per Day: 1 Years Smoked: 30 e-Cigarette/Vaping Use: Never Used Second Hand Smoke Exposure: No Substance Use Type: Marijuana Advance Directives Date on File: 08/05/21 service: No Current occupational status: disabled Cognitive needs: No Hearing needs: No Vision needs: No Review of Systems Const All systems reviewed & are unremarkable except as noted in HPI and below Physical Exam Vital Signs: Last Vital Signs Pulse 106 H 09/26/25 11:56 BP 142/96 H 09/26/25 11:56 Pulse Ox 95 09/26/25 11:56 Oxygen Delivery Method Nasal Cannula 09/26/25 11:56 Oxygen Flow Rate 3 09/26/25 11:56 BMI result Body Mass Index 31.5 General: Appears afebrile. Alert and oriented. Mood and affect appropriate. Follows and participates in conversation appropriately. Respiratory effort is unlabored. No cough. Uses supplemental O2@ 5L via nasal cannula. Able to transition from sit to stand unassisted. Uses cane with ambulation. Resp Effort & Inspection: normal respiratory effort, able to speak in complete sentences, no cough, no respiratory distress and symmetric chest movement Extrem General: Yes capillary refill normal, Yes no clubbing, cyanosis or edema and Yes no calf tenderness Psych Appearance: grossly normal and well kempt Mental Status: mental status grossly normal Speech and movement: Normal speech and movement present and Clear speech present Affect: normal affect and Anxious affect present Attitude: cooperative Thought process: Normal thought process present Thought content: Normal thought content present, suicidality (none), no hallucinations and Depressive thoughts present Insight: Good insight present (Psych) Judgement: Good judgement present (Psych) Results Reviewed Results Reviewed: XR THORACOLUMBAR SPINE 01/03/23 FINDINGS: There is bony demineralization. Vertebral body heights are normal. There is a mild lower thoracic dextroscoliosis. There is mild degenerative disc disease at T8-T9, and moderate degenerative disc disease seen at T11-T12 and T12-L1. The remaining thoracic disc spaces are relatively well-maintained. No acute fracture or spondylolisthesis is seen. There is mild thoracic spondylosis. The posterior elements are intact. The paravertebral soft tissues are unremarkable. IMPRESSION: 1. There is a mild lower thoracic dextroscoliosis. 2. There is mild degenerative disc disease at T8-T9, and moderate degenerative disease is seen at T11-T12 and T12-L1. XR LUMBOSACRAL SPINE 01/03/23 COMPARISON: Radiographs dated 08/09/2019 TECHNIQUE: AP, bilateral oblique and lateral (neutral, flexion and extension) views of the lumbar spine and lateral view of the lumbosacral junction. FINDINGS: There is bony demineralization. There is a mild lumbar levoscoliosis. Vertebral body heights are normal. At L1-L2, there is a 4 mm retrolisthesis. The remaining disc spaces are relatively well-maintained. No acute fracture or spondylolisthesis is seen. There is no instability with flexion or extension. The posterior elements are intact. No spondylolysis defect is seen. There is multi-level lumbar facet arthropathy. The paravertebral soft tissues are unremarkable. There are aortoiliac atherosclerotic calcifications. IMPRESSION: 1. There is moderate degenerative disc disease at L1-L2. 2. No acute fracture or spondylolisthesis is seen. 3. There is multi-level lumbar facet arthropathy. 4. There is a mild lumbar levoscoliosis. Assessment & Plan Assessment & Plan (1) Complex regional pain syndrome of right lower extremity: Code(s): G90.521 - Complex regional pain syndrome I of right lower limb Category: Medical (2) Chronic pain syndrome: Code(s): G89.4 - Chronic pain syndrome Category: Medical (3) Lumbar degenerative disc disease: Code(s): M51.36 - Other intervertebral disc degeneration, lumbar region Category: Medical (4) senior care (current) use of opiate analgesic: Code(s): Z79.891 - equipment operator intermodal yard (current) use of opiate analgesic Category: Medical (5) Lumbar spondylosis: Code(s): M47.816 - Spondylosis without myelopathy or radiculopathy, lumbar region Category: Medical Plan Patient has shown accountability for her medication regimen. There is no evidence of misuse, abuse or diversion at this time. MassPAT reviewed. Patient will complete current script o oxycodone. Next refill sent for original script of morphine 15 mg Q6H prn sent with an advanced date of 10/05/25 for moderate-severe pain. Reviewed with the patient the risks associated with benzodiazepine and usp opioid use. Patient is aware and verbalized agreement to take the medications at least two hours apart. Patient has Narcan at home. All questions were answered and patient is in agreement of plan. Follow up in 4-5 weeks for a pill count or sooner as needed. Medications: Refilled morphine Partial Fill upon patient request. 15 mg PO Q6H PRN 120 tabs 0RF pain, severe 30 days NS G89.4 - Chronic pain syndrome, G90.521 - Complex regional pain syndrome I of right lower limb, M47.816 - Spondylosis without myelopathy or radiculopathy, lumbar region, M51.36 - Other intervertebral disc degeneration, lumbar region Discontinued oxycodone Partial Fill upon patient request. Discontinued Reason: Doctor's Order 10 mg PO Q6H 30 days PRN 120 tabs 0RF pain (scale score 7-10) G89.4 - Chronic pain syndrome, G90.521 - Complex regional pain syndrome I of right lower limb, M47.816 - Spondylosis without myelopathy or radiculopathy, lumbar region, M51.36 - Other intervertebral disc degeneration, lumbar region, M54.50 - Low back pain, unspecified, M54.6 - Pain in thoracic spine Coding Level of Care Code Est Pt Level 4 (73141) Complex EM visit Add On G2211 Diagnoses Complex regional pain syndrome of right lower extremity G90.521 Chronic pain syndrome G89.4 Lumbar degenerative disc disease M51.36 equipment operator 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
[2025-09-26 11:56] VITALS: BP 142/96; PULSE 106; O2SAT 95; BMI 31.5
--- OUTSIDE RECORDS SUMMARY | 2025-09-26 14:45 | XMS_ITS | Clinical Summary ---
Author Organization [facility] Address [address] [place] [address] Care Team Providers Care Assistant Facility Manager Name Role Phone Tata Baptiste DO Primary Care Provider [phone] Allergies Active Allergy Reactions Criticality Noted Date [...] (attention deficit hyperactivity disorder) Overview: Hellen Sifuentes [place] Chronic narcotic use Resolved Problems Problem Noted [...] History Relation Name Comments Heart disease Brother [place] Drug abuse Father Hypertension Father Heart disease [...] age to complete this topic Care Teams Assistant Facility Manager Relationship Specialty Start Date End Date Tata Baptiste DO PCP - General Family Medicine 01/05/18
--- OUTSIDE RECORDS SUMMARY | 2025-09-26 14:45 | XMS_ITS | Data Portability ---
Author Organization [facility] [place] [facility] Address [address] [place] [address] Care Team Providers Care Assistant Manager Bilingual Name Role Phone [facility] Referring Provider Assessment Encounter Date [...] blood by Pulse oximetry Body temperature Systolic And Diastolic Provider Name and Address Organization Details Last Updated DateTime 3 16 /min 66 /min 96 % 96 % 98.5 [degF] 124/68 mm[Hg] Not Available [facility] - production 19:56:43 Social History None recorded. Functional Status None recorded. Mental Status None recorded. Family History Nothing Reported. Medical History No medical history recorded. Gynecological HistoryNo gynecological history recorded. Obstetrics History GPAL:G 0 P 0 0 0 0 Past Encounters Encounter ID Performer Location Encounter Start Date Encounter Closed Date Diagnosis/Indication Diagnosis SNOMED-CT Code Diagnosis ICD10 Code Diagnosis IMO Codes Diagnosis Note [id number] Davida Marshall MD Main - [facility] [address] [place] [address] 05/25/2023 19:56:41 05/26/2023 11:25:43 Right flank pain 653843952 R10.9 Health Concerns Section Related Observation LastModified by Organization Detai ls LastModified Time None Recorded Concern Status LastModified by Organization Details LastModified Time None Recorded Advance Directives Directive None Recorded Payers Insurance Date Sequence Insurance Name Policy Number Policy Henson Covered Member ID Henson Member ID Guarantor Name 05/25/2023 1 [facility] - DOS ON OR AFTER 2023 - DUAL ELIGIBLE - [facility] OPTIONS AND ONE CARE (MEDICARE REPLACEMENT/ADV ANTAGE - HMO) Amna Mcfadden [id number] Amna Mcfadden Notes Date Note Type Note [...] ................. ................. ................. ................. ................. ................. ..... Can Striper Note From Eusebio Hawkins: Dispatched to the [...] ................. ................. ................. ................. ................. ..... Disposition: Jonatan Marshall MD [address] [facility], [place], [address], VERONICA - Find That FileCALI GALVEZ 05/25/2023 20:01:39 OBGyn Episode No OBEpisode recorded.
--- OUTSIDE RECORDS SUMMARY | 2025-09-26 14:45 | XMS_ITS | Clinical Summary ---
Author Organization [facility] Address [address] [place] [address] Care Team Providers Care Loan Servicing Specialist Name Role Phone Tata Baptiste DO Primary [...] disorder) DX:ADHD (attention deficit hyperactivity disorder);COMMENT:Hellen Sifuentes [place] Tobacco abuse DX:Tobacco abuse ;COMMENT:20 years 1 [...] CAD DX:F amily history of early CAD;COMMENT:Brother [place] age 40 HNP (herniated nucleus pulpo cyndy), [...] History Relation Name Comments Heart disease Brother [place] Drug abuse Father Hypertension Father Heart disease [...] Date Smoking Tobacco: Heavy Smoker Cigarettes 0.5 25.7 Started: 01/25/2000 Smokeless Tobacco: Never Alcohol Use [...] Last Done Comments Breast Cancer Screening 1962 Cervical Cancer Screening: P ap Smear 1983 Pneumococcal Vaccine: 50+ Ye ars (1 of 1 - PCV) 2012 Zoster Vaccines (1 of 2) 2012 Depression Screening 11/28/2024 COVID-19 Vaccine (1 - 2023-2 5 season) 2025 Influenza Vaccine (#1) 2025 DTaP,Tdap,and Td Vaccines (2 - Td or Tdap) 08/04/2027 08/04/2017 RSV Immunization Adult Patie nts (1 - 1-dose 75+ series) 2037 HIB Vaccines Aged Out No longer eligi [...] age to complete this topic Care Teams Loan Servicing Specialist Relationship Specialty Start Date End Date Tata Baptiste DO [address] [address] PCP - General Family Medicine 01/05/18
== END 2025-09-26 12:16 | disposition home or self-care (01) ==
LOC: HO.PMC 11:47
PROVIDERS: PCP Nurse Practitioner Family; Visit Provider Nurse Practitioner Family
DX: G90.521 Complex regional pain syndrome I of right lower limb (principal); G89.4 Chronic pain syndrome; M51.369 Other intervertebral disc degeneration, lumbar region without mention of lumbar back pain or lower extremity pain; Z79.891 Long term (current) use of opiate analgesic; M47.816 Spondylosis without myelopathy or radiculopathy, lumbar region
CPT/HCPCS: 99214; G2211

== ENCOUNTER → 2025-09-26 11:46 | Outpatient (BNVA) | payer OTHER, SELFPAY | PROVIDERS: PCP Nurse Practitioner Family; Visit Provider Nurse Practitioner Family | DX: G90.521 Complex regional pain syndrome I of right lower limb (principal); G89.4 Chronic pain syndrome; Z51.81 Encounter for therapeutic drug level monitoring; Z79.891 Long term (current) use of opiate analgesic | CPT/HCPCS: 99212 ==

== ENCOUNTER 2025-10-16 15:39 | Outpatient (REF) | payer OTHER, SELFPAY ==
--- NOTE | ~2025-10-16 | CT_ITS ---
EXAMINATION: CT CHEST WITHOUT IV CONTRAST INDICATION: R91.1 - Solitary pulmonary nodule COMPARISON: Previous chest CT scans most recent September 2024 TECHNIQUE: Helical CT scan of the chest was performed without intravenous contrast. Coronal and sagittal reformatted images were generated and reviewed. This CT exam was performed with one or more of the following dose reduction techniques: automated exposure control, adjustment of the mA and/or kV according to patient size, use of iterative reconstruction technique. DLP: 116 mGy-cm CHEST: THYROID: The thyroid is unremarkable. LUNGS: Severe interstitial lung disease with increased reticulation, groundglass attenuation, traction bronchiolectasis and honeycombing. This is seen diffusely throughout the lungs again with relative sparing of the right middle lobe and lingula. This is not appreciably changed from prior exams. New 6 x 8 mm right upper lobe nodule axial image 73 series 11. Stable right apical nodule measuring 1 x 1.5 cm axial image 63 series 11. Stable 5 mm right upper lobe nodule with adjacent peripheral calcification axial image 162 series 11. Stable 2 mm right upper lobe nodule axial image 177 series 11. Stable 4 mm left apical nodule axial image 65 series 11. Central airways are clear. MEDIASTINUM: There are enlarged mediastinal lymph nodes similar to previous exams. Largest lymph node is a precarinal lymph node measuring 1.2 cm in short axis. No thyroid nodule. Esophagus appears normal. GENNA: Evaluation of the hilar regions is limited by lack of intravenous contrast material. CARDIOVASCULATURE: The heart is normal in size. There is no pericardial effusion. The thoracic aorta is normal in caliber. Enlarged pulmonary arteries, main pulmonary artery measuring 3.6 cm on questionable for evidence of pulmonary artery hypertension. Is unchanged. DEGREE OF CORONARY CALCIFICATION: mild PLEURA: There is no pleural effusion. No pneumothorax. MAIN AIRWAYS: The mainstem bronchi and proximal branches are patent. AXILLA: There is no axillary lymphadenopathy. No chest wall mass. BONES AND SOFT TISSUES: Degenerative changes of the spine. UPPER ABDOMEN: The visualized portions of the liver, spleen, and adrenals have an unremarkable unenhanced appearance. CT/CT chest wo IV con IMPRESSION: Severe interstitial lung disease with honeycombing not appreciably changed. New 6 x 8 mm right upper lobe nodule. Otherwise pulmonary nodules not appreciably changed, largest 1 x 1.5 cm in the right upper lobe. Continued chest CT follow-up recommended. Prominent mediastinal lymph nodes, unchanged and likely reactive. Enlarged pulmonary arteries suggestive of pulmonary artery hypertension. Electronically signed by: Evangelina Bocanegra MD 10/16/2025 04:28 PM [facility]
--- OUTSIDE RECORDS SUMMARY | 2025-10-17 04:14 | XMS_ITS | Data Portability ---
Author Organization [employer] [facility], [place] [facility] [place] [facility] Address [address] [place] [address] Care Team Providers Care Negative Spotter Name Role Phone [facility] Referring [...] ICD10 Code Diagnosis IMO Codes Diagnosis Note [id number] Davida Marshall MD Main - [facility] [address] [place] [address] 05/25/2023 19:56:41 05/26/2023 11:25:43 Right flank pain [id number] R10.9 Health Concerns Section Related Observation LastModified by Organization Detai ls LastModified Time None Recorded Concern Status LastModified by Organization Details LastModified Time None Recorded Advance Directives Directive None Recorded Payers Insurance Date Sequence Insurance Name Policy Number Policy Henson Covered Member ID Henson Member ID Guarantor Name 05/25/2023 1 [facility] - DOS ON OR AFTER 2023 - DUAL ELIGIBLE - [facility] OPTIONS AND ONE CARE (MEDICARE REPLACEMENT/ADV ANTAGE - HMO) Amna Mcfadden [id number] Amna Mcfadden Notes Date Note Type Note [...] ................. ................. ................. ................. ................. ................. ..... [employer] [place] Pump Operator Note From Eusebio Hawkins: Dispatched to [...] ................. ..... Disposition: Jonatan Marshall MD [address] [facility],[address], [place], [address], VERONICA - [employer] LimitedCALI GALVEZ 05/25/2023 20:01:39 OBGyn Episode No OBEpisode recorded.
--- OUTSIDE RECORDS SUMMARY | 2025-10-17 04:15 | XMS_ITS | Clinical Summary ---
Author Organization [facility] Address [address] [place] [address] Care Team Providers Care Roguer Name Role Phone Tata Baptiste DO Primary [...] deficit hyperactivity disorder) Overview: Hellen Sifuentes [place] Chronic narcotic use Resolved Problems Problem Noted [...] History Relation Name Comments Heart disease Brother [place] Drug abuse Father Hypertension Father Heart disease [...] age to complete this topic Care Teams Roguer Relationship Specialty Start Date End Date Tata Baptiste DO PCP - General Family Medicine 01/05/18
== END 2025-10-16 15:40 | disposition home or self-care (01) ==
LOC: HO.CT 15:39
PROVIDERS: PCP Nurse Practitioner Family; Visit Provider Internal Medicine Pulmonary Disease
DX: R91.1 Solitary pulmonary nodule (principal)
CPT/HCPCS: 71250

== ENCOUNTER → 2025-10-16 15:40 | Outpatient (BNV) | payer OTHER, SELFPAY | PROVIDERS: PCP Nurse Practitioner Family; Visit Provider Radiology Diagnostic Radiology | DX: R91.1 Solitary pulmonary nodule (principal); J84.9 Interstitial pulmonary disease, unspecified | CPT/HCPCS: 71250 ==

== ENCOUNTER 2025-10-28 13:05 | Outpatient (AMB) | payer OTHER, SELFPAY ==
[2025-10-28 13:07] VITALS: BP 140/86; PULSE 108; RESP 16; O2SAT 90; BMI 31.9
--- NOTE | 2025-10-28 13:07 | A.OFFVIS_ITS ---
Vital Signs 10/28/25 13:07 Height 4 ft 11 in Weight 158 lb BMI 31.9 BP 140/86 H Blood Pressure Location Lt brachial Position Sitting Respiration 16 Pulse 108 H Pulse Source Pulse Oximeter Pulse Oximetry (%) 90 L Oxygen Delivery Method Room Air Intake Visit Reasons: PILL COUNT Intake Note: Patient here for a pill count of Morphine per directions patient should have 24 pills. Patient presented 30 pills. Last Took 11am Human Resources Safety Manager Required: No Accompanied by: Self / Same As Patient Allergies antibiotics Adverse Reaction (Severe, Uncoded 08/08/25 14:37) Gastrointestinal Upset HPI Comments Details: Patient presents today for a pill count. Patient is supposed to have #24 pills in her possession and presents with #30 pills. This demonstrates a responsible attitude towards her regimen. Patient reports adequate analgesia on morphine 15 mg Q6H prn without any side effects except occasional constipation. Currently rates pain 5/10. Last medication taken at 11:00. Patient reports improved pain management since switching back to morphine from oxycodone. The patient manages constipation with Dulcolax and uses probiotics. She receives continuous oxygen therapy and occasionally performs self-administered breathing treatments to manage respiratory symptoms. The patient receives assistance in daily life activities from a PORT CDL A DRIVER due to activity intolerance, maintaining her independent living status. Patient uses supplemental O2 at 3-5L via nasal cannula during the day with activities and night. She follows with [facility] for pulmonary fibrosis. 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 Social History Household Members: Other Household Members Other:: Dog Housing: [facility] Do you presently have visiting nurse or other home services: No Alcohol intake: never Patient Tobacco Use Status: Former Tobacco user Tobacco use type: Cigarette Cigarettes Per Day: 1 Years Smoked: 30 e-Cigarette/Vaping Use: Never Used Second Hand Smoke Exposure: No Substance Use Type: Marijuana Advance Directives Date on File: 08/05/21 service: No Current occupational status: disabled Cognitive needs: No Hearing needs: No Vision needs: No Review of Systems Const All systems reviewed & are unremarkable except as noted in HPI and below Physical Exam Vital Signs: Last Vital Signs Pulse 108 H 10/28/25 13:07 Resp 16 10/28/25 13:07 BP 140/86 H 10/28/25 13:07 Pulse Ox 90 L 10/28/25 13:07 Oxygen Delivery Method Room Air 10/28/25 13:07 BMI result Body Mass Index 31.9 General: Appears afebrile. Alert and oriented. Mood and affect appropriate. Follows and participates in conversation appropriately. Respiratory effort is unlabored. No cough. Uses supplemental O2@ 3L via nasal cannula. Able to transition from sit to stand unassisted. Uses cane with ambulation. Eyes General: appearance normal, both eyes and all related structures Resp Effort & Inspection: normal respiratory effort, able to speak in complete sentences, no cough, no respiratory distress and symmetric chest movement Extrem General: Yes capillary refill normal, Yes no clubbing, cyanosis or edema and Yes no calf tenderness Psych Appearance: grossly normal and well kempt Mental Status: mental status grossly normal Speech and movement: Normal speech and movement present and Clear speech present Affect: normal affect and Anxious affect present Attitude: cooperative Thought process: Normal thought process present Thought content: Normal thought content present, suicidality (none), no hallucinations and Depressive thoughts present Insight: Good insight present (Psych) Judgement: Good judgement present (Psych) Results Reviewed Results Reviewed: XR THORACOLUMBAR SPINE 01/03/23 FINDINGS: There is bony demineralization. Vertebral body heights are normal. There is a mild lower thoracic dextroscoliosis. There is mild degenerative disc disease at T8-T9, and moderate degenerative disc disease seen at T11-T12 and T12-L1. The remaining thoracic disc spaces are relatively well-maintained. No acute fracture or spondylolisthesis is seen. There is mild thoracic spondylosis. The posterior elements are intact. The paravertebral soft tissues are unremarkable. IMPRESSION: 1. There is a mild lower thoracic dextroscoliosis. 2. There is mild degenerative disc disease at T8-T9, and moderate degenerative disease is seen at T11-T12 and T12-L1. XR LUMBOSACRAL SPINE 01/03/23 COMPARISON: Radiographs dated 08/09/2019 TECHNIQUE: AP, bilateral oblique and lateral (neutral, flexion and extension) views of the lumbar spine and lateral view of the lumbosacral junction. FINDINGS: There is bony demineralization. There is a mild lumbar levoscoliosis. Vertebral body heights are normal. At L1-L2, there is a 4 mm retrolisthesis. The remaining disc spaces are relatively well-maintained. No acute fracture or spondylolisthesis is seen. There is no instability with flexion or extension. The posterior elements are intact. No spondylolysis defect is seen. There is multi-level lumbar facet arthropathy. The paravertebral soft tissues are unremarkable. There are aortoiliac atherosclerotic calcifications. IMPRESSION: 1. There is moderate degenerative disc disease at L1-L2. 2. No acute fracture or spondylolisthesis is seen. 3. There is multi-level lumbar facet arthropathy. 4. There is a mild lumbar levoscoliosis. 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 There is no evidence of misuse, abuse or diversion at this time. MassPAT reviewed. Script sent for morphine 15 mg Q6H prn sent with an advanced date of 11/02/25 for moderate-severe pain. Reviewed with the patient the risks associated with benzodiazepine and terminal make up operator opioid use. Patient is aware and verbalized agreement to take the medications at least two hours apart. Patient has Narcan at home. All questions were answered and patient is in agreement of plan. Follow up in 4- 5 weeks for a pill count or sooner as needed. Medications: Refilled morphine Partial Fill upon patient request. 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
--- OUTSIDE RECORDS SUMMARY | 2025-10-28 16:45 | XMS_ITS | Clinical Summary ---
Author Organization [facility] Address [address] [place] [address] Care Team Providers Care Body Design Checker Name Role Phone Tata Baptiste DO Primary [...] disorder) DX:ADHD (attention deficit hyperactivity disorder);COMMENT:Hellen Sifuentes [place] Tobacco abuse DX:Tobacco abuse ;COMMENT:20 years 1 [...] CAD DX:F amily history of early CAD;COMMENT:Brother [place] age 40 HNP (herniated nucleus pulpo cyndy), [...] History Relation Name Comments Heart disease Brother [place] Drug abuse Father Hypertension Father Heart disease [...] Date Smoking Tobacco: Heavy Smoker Cigarettes 0.5 25.8 Started: 01/25/2000 Smokeless Tobacco: Never Alcohol Use [...] Depression Screening 11/28/2024 COVID-19 Vaccine (1 - 2024-2 6 season) 2025 Influenza Vaccine (#1) 2025 DTaP,Tdap,and [...] age to complete this topic Care Teams Body Design Checker Relationship Specialty Start Date End Date Tata Baptiste DO [address] [address] PCP - General Family Medicine 01/05/18
--- OUTSIDE RECORDS SUMMARY | 2025-10-28 16:45 | XMS_ITS | Clinical Summary ---
Author Organization [facility] Address [address] [place] [address] Care Team Providers Care Toll Transmission Worker Name Role Phone Tata Baptiste DO Primary [...] (attention deficit hyperactivity disorder) Overview: Hellen Sifuentes [place] Chronic narcotic use Resolved Problems Problem Noted [...] History Relation Name Comments Heart disease Brother [place] Drug abuse Father Hypertension Father Heart disease [...] age to complete this topic Care Teams Toll Transmission Worker Relationship Specialty Start Date End Date Tata Baptiste DO PCP - General Family Medicine 01/05/18
--- OUTSIDE RECORDS SUMMARY | 2025-10-28 16:45 | XMS_ITS | Data Portability ---
Author Organization [facility] [employer] [facility] Address [address] [place] [address] Care Team Providers Care Used Car Manager Name Role Phone [facility] Referring [...] Recorded Respiratory rate Heart rate Oxygen saturation Body temperature Systolic And Diastolic Provider Name and Address Organization Details Last Updated DateTime 3 16 /min 66 /min 96 % 98.5 [degF] 124/68 mm[Hg] Not [...] ICD10 Code Diagnosis IMO Codes Diagnosis Note [id number] Davida Marshall MD [facility] - [facility] [address] [place] [phone] 05/25/2023 19:56:41 05/26/2023 11:25:43 Right flank pain [id number] R10.9 Health Concerns Section Related Observation LastModified by Organization Detai ls LastModified Time None Recorded Concern Status LastModified by Organization Details LastModified Time None Recorded Advance Directives Directive None Recorded Payers Insurance Date Sequence Insurance Name Policy Number Policy Henson Covered Member ID Henson Member ID Guarantor Name 05/25/2023 1 [facility] - DOS ON OR AFTER 2023 - DUAL ELIGIBLE - GROUP HOME OPTIONS AND ONE CARE (MEDICARE REPLACEMENT/ADV ANTAGE - HMO) Amna Mcfadden [id number] Amna Mcfadden Notes Date Note Type Note [...] ................. ................. ................. ................. ................. ................. ..... Timber Repairer Note From Eusebio Hawkins: Dispatched to [...] PWD, +CMSx4, strong and regular radial pulses. C consulted. Red flags discussed. ALL times are approx. ................. ................. ................. ................. ................. ................. ................. ................. ..... Disposition: Fulfilled Davida Marshall MD [address] [facility],[address], [place], [address], VERONICA - UrtakCALI GALVEZ 05/25/2023 20:01:39 OBGyn Episode No OBEpisode recorded.
== END 2025-10-28 13:25 | disposition home or self-care (01) ==
LOC: HO.PMC 13:05
PROVIDERS: PCP Nurse Practitioner Family; Visit Provider Nurse Practitioner Family
DX: G90.521 Complex regional pain syndrome I of right lower limb (principal); G89.4 Chronic pain syndrome; M51.369 Other intervertebral disc degeneration, lumbar region without mention of lumbar back pain or lower extremity pain; Z79.891 Long term (current) use of opiate analgesic; M47.816 Spondylosis without myelopathy or radiculopathy, lumbar region
CPT/HCPCS: 99213; G2211

== ENCOUNTER → 2025-10-28 13:05 | Outpatient (BNVA) | payer OTHER, SELFPAY | PROVIDERS: PCP Nurse Practitioner Family; Visit Provider Nurse Practitioner Family | DX: G90.521 Complex regional pain syndrome I of right lower limb (principal); M51.361 Other intervertebral disc degeneration, lumbar region with lower extremity pain only; G89.4 Chronic pain syndrome; M47.816 Spondylosis without myelopathy or radiculopathy, lumbar region; Z79.891 Long term (current) use of opiate analgesic | CPT/HCPCS: 99212 ==

== ENCOUNTER 2025-11-25 12:45 | Outpatient (AMB) | payer OTHER, SELFPAY ==
[2025-11-25 12:49] VITALS: BP 148/84; PULSE 99; RESP 16; O2SAT 90; BMI 32.7
--- NOTE | 2025-11-25 12:49 | MHC.OFFVIS ---
Vital Signs 11/25/25 12:49 Height 4 ft 11 in Weight 162 lb BMI 32.7 BP 148/84 H Blood Pressure Location Lt brachial Position Sitting Respiration 16 Pulse 99 Pulse Source Pulse Oximeter Pulse Oximetry (%) 90 L Oxygen Delivery Method Nasal Cannula Oxygen Flow Rate 2 Intake Visit Reasons: Pill Count-next count needs to be am Intake Note: Patient here for a pill count of Morphine per directions patient should have 24 pills patient presented 32 pills. Last took 10am Plant Science Professor Required: No Accompanied by: Self / Same As Patient Allergies antibiotics Adverse Reaction (Severe, Uncoded 08/08/25 14:37) Gastrointestinal Upset HPI Comments Details: Patient presents today for a pill count. Patient is supposed to have #24 pills in her possession and presents with #32 pills. This demonstrates a responsible attitude towards her regimen. Patient reports adequate analgesia on morphine 15 mg Q6H prn without any side effects except occasional constipation which she manages with Dulcolax and also uses probiotics. Currently rates pain 5/10. Last medication taken at 10:00. Patient uses supplemental O2 at 2-4L via nasal cannula during the day with activities and night. She follows with [facility] for pulmonary fibrosis. Denies any recent cough, cold, infection, fever or any significant changes in medical history since last office visit. 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 Social History Household Members: Other Household Members Other:: Dog Housing: Condominium Do you presently have visiting nurse or other home services: No Alcohol intake: never Patient Tobacco Use Status: Former Tobacco user Tobacco use type: Cigarette Cigarettes Per Day: 1 Years Smoked: 30 e-Cigarette/Vaping Use: Never Used Second Hand Smoke Exposure: No Substance Use Type: Marijuana Advance Directives Date on File: 08/05/21 service: No Current occupational status: disabled Cognitive needs: No Hearing needs: No Vision needs: No Review of Systems Const All systems reviewed & are unremarkable except as noted in HPI and below Physical Exam Vital Signs: Last Vital Signs Pulse 99 11/25/25 12:49 Resp 16 11/25/25 12:49 BP 148/84 H 11/25/25 12:49 Pulse Ox 90 L 11/25/25 12:49 Oxygen Delivery Method Room Air 11/25/25 12:49 BMI result Body Mass Index 32.7 General: Appears afebrile. Alert and oriented. Mood and affect appropriate. Follows and participates in conversation appropriately. Respiratory effort is unlabored. No cough. Uses supplemental O2@ 2L via nasal cannula. Able to transition from sit to stand unassisted. Uses cane with ambulation. Eyes General: appearance normal, both eyes and all related structures Resp Effort & Inspection: normal respiratory effort, able to speak in complete sentences, no cough, no respiratory distress and symmetric chest movement Psych Appearance: grossly normal and well kempt Mental Status: mental status grossly normal Speech and movement: Normal speech and movement present and Clear speech present Affect: normal affect and Anxious affect present Attitude: cooperative Thought process: Normal thought process present Thought content: Normal thought content present, suicidality (none), no hallucinations and Depressive thoughts present Insight: Good insight present (Psych) Judgement: Good judgement present (Psych) Results Reviewed Results Reviewed: XR THORACOLUMBAR SPINE 01/03/23 FINDINGS: There is bony demineralization. Vertebral body heights are normal. There is a mild lower thoracic dextroscoliosis. There is mild degenerative disc disease at T8-T9, and moderate degenerative disc disease seen at T11-T12 and T12-L1. The remaining thoracic disc spaces are relatively well-maintained. No acute fracture or spondylolisthesis is seen. There is mild thoracic spondylosis. The posterior elements are intact. The paravertebral soft tissues are unremarkable. IMPRESSION: 1. There is a mild lower thoracic dextroscoliosis. 2. There is mild degenerative disc disease at T8-T9, and moderate degenerative disease is seen at T11-T12 and T12-L1. XR LUMBOSACRAL SPINE 01/03/23 COMPARISON: Radiographs dated 08/09/2019 TECHNIQUE: AP, bilateral oblique and lateral (neutral, flexion and extension) views of the lumbar spine and lateral view of the lumbosacral junction. FINDINGS: There is bony demineralization. There is a mild lumbar levoscoliosis. Vertebral body heights are normal. At L1-L2, there is a 4 mm retrolisthesis. The remaining disc spaces are relatively well-maintained. No acute fracture or spondylolisthesis is seen. There is no instability with flexion or extension. The posterior elements are intact. No spondylolysis defect is seen. There is multi-level lumbar facet arthropathy. The paravertebral soft tissues are unremarkable. There are aortoiliac atherosclerotic calcifications. IMPRESSION: 1. There is moderate degenerative disc disease at L1-L2. 2. No acute fracture or spondylolisthesis is seen. 3. There is multi-level lumbar facet arthropathy. 4. There is a mild lumbar levoscoliosis. Assessment & Plan Assessment & Plan (1) Complex regional pain syndrome of right lower extremity: Code(s): G90.521 - Complex regional pain syndrome I of right lower limb Category: Medical (2) Chronic pain syndrome: Code(s): G89.4 - Chronic pain syndrome Category: Medical (3) Lumbar degenerative disc disease: Code(s): M51.36 - Other intervertebral disc degeneration, lumbar region Category: Medical (4) 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: Code(s): Z79.891 - 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 Category: Medical (5) Lumbar spondylosis: Code(s): M47.816 - Spondylosis without myelopathy or radiculopathy, lumbar region Category: Medical Plan Patient has shown accountability for her medication regimen. There is no evidence of misuse, abuse or diversion at this time. MassPAT reviewed. Script sent for morphine 15 mg Q6H prn sent with an advanced date of 12/03/25 for moderate-severe pain. Reviewed with the patient the risks associated with benzodiazepine and residential opioid use. Patient is aware and verbalized agreement to take the medications at least two hours apart. Patient has Narcan at home. She also takes gabapentin, no refills needed at this time. All questions were answered and patient is in agreement of plan. Follow up in 4-5 weeks for a pill count or sooner as needed. Medications: Refilled morphine Partial Fill upon patient request. 15 mg PO Q6H PRN 120 tabs 0RF pain, severe 30 days NS G89.4 - Chronic pain syndrome, G90.521 - Complex regional pain syndrome I of right lower limb, M47.816 - Spondylosis without myelopathy or radiculopathy, lumbar region, M51.36 - Other intervertebral disc degeneration, lumbar region Coding Level of Care Code Est Pt Level 4 (70792) Add On Problem Visit Only Diagnoses Complex regional pain syndrome of right lower extremity G90.521 Chronic pain syndrome G89.4 Lumbar degenerative disc disease M51.36 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
--- OUTSIDE RECORDS SUMMARY | 2025-11-25 14:36 | XMS_ITS | Clinical Summary ---
Author Organization [facility] Address [address] [place] [address] Care Team Providers Care Vending Machine Servicer Name Role Phone Tata Baptiste DO Primary [...] disorder) DX:ADHD (attention deficit hyperactivity disorder);COMMENT:Hellen Sifuentes [place] Tobacco abuse DX:Tobacco abuse ;COMMENT:20 years 1 [...] CAD DX:F amily history of early CAD;COMMENT:Brother [place] age 40 HNP (herniated nucleus pulpo cyndy), [...] History Relation Name Comments Heart disease Brother [place] Drug abuse Father Hypertension Father Heart disease [...] on file Sexual Orientation Not on file Plan of Treatment Health Maintenance Due Date [...] age to complete this topic Care Teams Vending Machine Servicer Relationship Specialty Start Date End Date Tata Baptiste DO [facility] [address] [address] PCP - General Family Medicine 01/05/18
--- OUTSIDE RECORDS SUMMARY | 2025-11-25 14:36 | XMS_ITS | Clinical Summary ---
Author Organization [facility] Prior to 04/27/25 Address [address] [place] [address] Care Team Providers Care Salesperson Sewing Machines Name Role Phone Tata Baptiste DO Primary Care Provider [phone] Allergies Active Allergy Reactions Criticality Noted Date [...] (attention deficit hyperactivity disorder) Overview: Hellen Sifuentes [place] Chronic narcotic use Resolved Problems Problem Noted [...] History Relation Name Comments Heart disease Brother [place] Drug abuse Father Hypertension Father Heart disease [...] age to complete this topic Care Teams Salesperson Sewing Machines Relationship Specialty Start Date End Date Tata Baptiste DO PCP - General Family Medicine 01/05/18
== END 2025-11-25 13:18 | disposition home or self-care (01) ==
LOC: HO.PMC 12:46
PROVIDERS: PCP Nurse Practitioner Family; Visit Provider Nurse Practitioner Family
DX: G90.521 Complex regional pain syndrome I of right lower limb (principal); G89.4 Chronic pain syndrome; M51.369 Other intervertebral disc degeneration, lumbar region without mention of lumbar back pain or lower extremity pain; Z79.891 Long term (current) use of opiate analgesic; M47.816 Spondylosis without myelopathy or radiculopathy, lumbar region
CPT/HCPCS: 99214; G2211

== ENCOUNTER → 2025-11-25 12:45 | Outpatient (BNVA) | payer OTHER, SELFPAY | PROVIDERS: PCP Nurse Practitioner Family; Visit Provider Nurse Practitioner Family | DX: G89.4 Chronic pain syndrome (principal); G90.521 Complex regional pain syndrome I of right lower limb; M51.369 Other intervertebral disc degeneration, lumbar region without mention of lumbar back pain or lower extremity pain; M47.816 Spondylosis without myelopathy or radiculopathy, lumbar region; Z79.891 Long term (current) use of opiate analgesic; Z79.899 Other long term (current) drug therapy | CPT/HCPCS: 99212 ==